=== PATIENT | female | born 1960 | race African-American/Black ===

== ENCOUNTER 2016-05-10 14:16 | Inpatient (IN) | payer OTHER ==
[2016-05-10] VITALS (8 sets, daily range): BP systolic 122–211; BP diastolic 79–130; PULSE 108–126; RESP 16–21; TEMP 98.8–100; O2SAT 96–100
[~2016-05-10] VITALS: Ht 172.7 cm; Wt 64.8 kg
[~2016-05-10 14:16] MED LIST: BP MEDICATION; CLON1TAB PO; LORTA5 PO; POTA1TAB PO
--- NOTE | 2016-05-10 14:42 | PD ---
HPI Chief Complaint: Altered Mental Status Time Seen by Provider: 14:31 Travel History International Travel<30 days: No Contact w/Intl Traveler<30days: No Traveled to known affect area: No History of Present Illness HPI 55-year-old female with past medical history of hepatitis and alcohol abuse presents to the emergency department with complaint of altered mental status. Patient's neighbor checks on her once in a while and found her to be confused today with dark stools all over her house. Patient denies any complaints and does not know why she is here. She is awake, alert and oriented 2. Patient admits to daily alcohol use and last use was yesterday. She has no acute signs of trauma, has multiple old ecchymosis and looks disheveled. PFSH Past Medical History Cerebrovascular Accident: No Hepatitis: Yes (HEP C) Hypertension: Yes Myocardial Infarction: No Seizures: No Ulcer: No ?: Unknown Menopausal: Yes Past Surgical History Abdominal Surgery: Yes Social History Alcohol Use: Yes (3 BEERS FEW TIMES A WEEK) Tobacco Use: Yes (1/2 PPD) Substance Use: Yes (MARIJUANA) Allergies-Medications (Allergen,Severity, Reaction): Coded Allergies: Sulfa (Verified Allergy, Severe, 05/10/16) Reported Meds & Prescriptions Reported Meds & Active Scripts Active Hydrocodone/Acetaminophen 5 mg/325 mg 1 Tab Tab 1 Tab PO Q6H PRN Reported [Bp Medication] UNKNOWN ANTIHYPERTENSIVE Clonazepam 1 Mg Tab 1 Mg PO BID K-Dur (Potassium Chloride) 10 Meq Tabcr 0 PO DAILY UNKNOWN DOSE Review of Systems ROS negative x 10: except as stated in HPI Physical Exam Narrative GENERAL: 55yo disheveled female, malodorous. SKIN: Warm and dry. HEAD: Atraumatic. Normocephalic. EYES: Pupils equal and round. Positive scleral icterus. No injection or drainage. NECK: Trachea midline. No JVD. CARDIOVASCULAR: Regular rate and rhythm. No murmur appreciated. Old large ecchymoses on right anterior chest. RESPIRATORY: No accessory muscle use. Clear to auscultation. Breath sounds equal bilaterally. GASTROINTESTINAL: Abdomen soft, non-tender, nondistended. MUSCULOSKELETAL: No obvious deformities. No clubbing. No cyanosis. No edema. NEURO: CNII-XII grossly intact. RUE: 3/5 muscle strength. RLE: 1/5 muscle strength. LUE: 4/5, LLE: 4/5. Data Data Last Documented VS Vital Signs Date Time Temp Pulse Resp B/P Pulse Ox O2 Delivery O2 Flow Rate FiO2 05/10/16 15:57 120 16 157/90 97 Room Air 05/10/16 14:27 2 05/10/16 14:20 100.0 Orders Electrocardiogram (05/10/16 14:31) Alcohol (Ethanol) (05/10/16 14:31) Ammonia (05/10/16 14:31) Complete Blood Count With Diff (05/10/16 14:31) Comprehensive Metabolic Panel (05/10/16 14:31) Creatine Kinase (Cpk) (05/10/16 14:31) Drug Screen, Random Urine (05/10/16 14:31) Salicylates (Aspirin) (05/10/16 14:31) Troponin I (05/10/16 14:31) Tylenol (Acetaminophen) (05/10/16 14:31) Thyroid Stimulating Hormone (05/10/16 14:31) Lactic Acid Sepsis Protocol (05/10/16 14:31) Arterial Blood Gas (Abg) (05/10/16 14:31) Blood Culture (05/10/16 14:31) Chest, Single Ap (05/10/16 14:31) Ct Brain W/O Iv Contrast(Rout) (05/10/16 14:31) Blood Glucose (05/10/16 14:31) Ecg Monitoring (05/10/16 14:31) Iv Access Insert/Monitor (05/10/16 14:31) Oximetry (05/10/16 14:31) Sodium Chloride 0.9% Flush (Ns Flush) (05/10/16 14:45) Urinalysis - C+S If Indicated (05/10/16 14:31) Ed Urine Pregnancytest Poc (05/10/16 14:31) Prothrombin Time / Inr (Pt) (05/10/16 15:27) Portable Eeg (05/10/16 ) Sodium Chlor 0.9% 1000 Ml Inj (Ns 1000 M (05/10/16 16:00) Sodium Chlor 0.9% 1000 Ml Inj (Ns 1000 M (05/10/16 16:00) CKMB (05/10/16 15:00) CKMB% (05/10/16 15:00) Urine Culture (05/10/16 15:30) Admit Order (Ed Use Only) (05/10/16 16:11) Labs Laboratory Tests Test 05/10/16 05/10/16 05/10/16 14:54 15:00 15:30 Blood Gas Puncture Site RT RADIAL Blood Gas Patient Temperature 98.6 Blood Gas HCO3 18 mmol/L Blood Gas Base Excess -4.2 mmol/L Blood Gas Oxygen Saturation 93 % Arterial Blood pH 7.56 Arterial Blood Partial 20 mmHg Pressure CO2 Arterial Blood Partial 88 mmHG Pressure O2 Arterial Blood Oxygen Content 17.6 Vol % Arterial Blood 1.8 % Carboxyhemoglobin Arterial Blood Methemoglobin 1.7 % Blood Gas Hemoglobin 13.4 G/DL Oxygen Delivery Device NASAL CANNULA Blood Gas Liter Flow 2 L/M Sodium Level 134 MEQ/L Potassium Level 4.2 MEQ/L Chloride Level 100 MEQ/L Carbon Dioxide Level 18.4 MEQ/L Anion Gap 16 MEQ/L Blood Urea Nitrogen 32 MG/DL Creatinine 1.27 MG/DL Estimat Glomerular Filtration 53 ML/MIN Rate Random Glucose 112 MG/DL Lactic Acid Level 4.3 mmol/L Calcium Level 8.9 MG/DL Phosphorus Level 2.9 MG/DL Total Bilirubin 1.6 MG/DL Aspartate Amino Transf 116 U/L (AST/SGOT) Alanine Aminotransferase 64 U/L (ALT/SGPT) Alkaline Phosphatase 61 U/L Ammonia 28 MCMOL/L Total Creatine Kinase 471 U/L Creatine Kinase MB 0.9 NG/ML Creatine Kinase MB % 0.2 % Troponin I 0.12 NG/ML Total Protein 8.9 GM/DL Albumin 3.1 GM/DL Thyroid Stimulating Hormone 1.010 uIU/ML 3rd Gen Salicylates Level LESS THAN 1.7 MG/DL Acetaminophen Level LESS THAN 2.0 MCG/ML Ethyl Alcohol Level 21 MG/DL White Blood Count 13.1 TH/MM3 Red Blood Count 3.98 MIL/MM3 Hemoglobin 12.8 GM/DL Hematocrit 39.4 % Mean Corpuscular Volume 99.0 FL Mean Corpuscular Hemoglobin 32.2 PG Mean Corpuscular Hemoglobin 32.5 % Concent Red Cell Distribution Width 13.1 % Platelet Count 79 TH/MM3 Mean Platelet Volume 10.2 FL Neutrophils (%) (Auto) 84.5 % Lymphocytes (%) (Auto) 3.9 % Monocytes (%) (Auto) 11.4 % Eosinophils (%) (Auto) 0.0 % Basophils (%) (Auto) 0.2 % Neutrophils # (Auto) 11.1 TH/MM3 Lymphocytes # (Auto) 0.5 TH/MM3 Monocytes # (Auto) 1.5 TH/MM3 Eosinophils # (Auto) 0.0 TH/MM3 Basophils # (Auto) 0.0 TH/MM3 CBC Comment AUTO DIFF Differential Comment AUTO DIFF CONFIRMED Platelet Estimate LOW Platelet Morphology Comment ENLARGED Red Cell Morphology Comment NORMAL Prothrombin Time 10.5 SEC Prothromb Time International 1.0 RATIO Ratio Urine Opiates Screen NEG Urine Barbiturates Screen NEG Urine Amphetamines Screen NEG Urine Benzodiazepines Screen NEG Urine Cocaine Screen POS Urine Cannabinoids Screen NEG Urine Color YELLOW Urine Turbidity HAZY Urine pH 6.0 Urine Specific [place] 1.019 Urine Protein 100 mg/dL Urine Glucose (UA) NEG mg/dL Urine Ketones 10 mg/dL Urine Occult Blood MOD Urine Nitrite POS Urine Bilirubin NEG Urine Urobilinogen LESS THAN 2.0 MG/DL Urine Leukocyte Esterase MOD Urine RBC 6 /hpf Urine WBC 42 /hpf Urine WBC Clumps OCC Urine Squamous Epithelial <1 /hpf Cells Urine Bacteria MANY /hpf Urine Mucus FEW /lpf Microscopic Urinalysis Comment CATH-CULTURE IND MDM Medical Decision Making Medical Screen Exam Complete: Yes Emergency Medical Condition: Yes Interpretation(s) CT brain: 2.3cm left thalamic hemorrhage CXR negative Labs elevated leukocytosis, elevated lactic acid. Normal ammonia level. ABG: respiratory alkalosis. UA positive for nitrite and leukocyte Differential Diagnosis AMS: Hepatic encephalopathy vs. ICH vs. GI bleed vs. infectious cause vs. electrolyte abnormalities vs. overdose. Narrative Course 55yo disheveled female with hepatitis here with altered mental status. Will check labs, CXR, CT brain, UA and reevaluate. CT brain was performed and showed 2.3cm thalamic hypertensive type hemorrhage. ICU and neurosurgery consulted. Pt accepted to ICU for ICH. Pt reevaluated at bedside, currently maintaining airway and does not need to be emergently intubated. Continue neurochecks Q1Hr, blood pressure control. Critical Care Narrative Aggregate critical care time was 35 minutes. Time to perform other separately billable procedures was not included in the critical care time. My time did not include minutes spent treating any other patients simultaneously or on activities that did not directly contribute to the patient's treatment. The services I provided were to treat and/or prevent clinically significant deterioration that could result in: cardiovascular compromise or . I provided critical care services requiring my management, as noted below: Chart data review, documentation time, medication orders and management, vital sign assessments/reviewing monitor data, ordering and reviewing lab tests, ordering and interpreting/reviewing x-rays and diagnostic studies, care of the patient and discussion of the patient with the admitting physicians. Admitting Information Admitting Physician Requests: Admit Diagnosis: Intracranial bleed Juanita Leong DO May 10, 2016 14:42
[2016-05-10] MEDS ORDERED: SODIUM CHLORIDE 0.9% FLUSH 5 ML FLUSH IVF PRN ×3 (14:45→19:00)
[2016-05-10 15:02] LABS: BLOOD GAS BASE EXCESS -4.2 mmol/L (-2-2); BLOOD GAS CARBOXYHEMOGLOBIN 1.8 % (0-4); BLOOD GAS HCO3 18 mmol/L (22-26); BLOOD GAS METHEMOGLOBIN 1.7 % (0-2); BLOOD GAS O2 HGB SATURATION 93 % (90-100); BLOOD GAS OXYGEN CONTENT 17.6 Vol % (12.0-20.0); BLOOD GAS PCO2 20 mmHg (38-42); BLOOD GAS PO2 88 mmHG (61-120); BLOOD GAS TOTAL HGB 13.4 G/DL (12.0-16.0); CRITICAL VALUE YES; DRAW SITE RT RADIAL; LITER FLOW 2 L/M; NUMBER OF ARTERIAL PUNCTURES 1; OXYGEN DEVICE NASAL CANNULA; STAT YES; TEMP CORR TO 98.6; ULNAR PULSE PRESENT
--- NOTE | 2016-05-10 15:09 | RADRPT ---
EXAM DATE/TIME: 05/10/2016 14:39 [facility] COMPARISON: No previous studies available for comparison. INDICATIONS : Short of breath. MEDICAL HISTORY : None. SURGICAL HISTORY : None. ENCOUNTER: Initial ACUITY: 1 day PAIN SCORE: 0/10 LOCATION: Bilateral chest FINDINGS: A single view of the chest demonstrates the lungs to be symmetrically aerated without evidence of mas s, infiltrate or effusion. The cardiomediastinal contours are unremarkable. Osseous structures are intact. CONCLUSION: No acute disease. Pedro Escobar MD on May 10, 2016 at 15:06 Board Certified Radiologist. This report was verified electronically.
[2016-05-10 15:13] LABS: AUTOMATED NEUTROPHIL # 11.1 TH/MM3 (1.8-7.7); BASOPHIL % 0.2 % (0.0-2.0); HEMATOCRIT 39.4 % (35.0-46.0); LYMPH % 3.9 % (9.0-44.0); LYMPHOCYTE # 0.5 TH/MM3 (1.0-4.8); MEAN CORPUSCULAR HEMOGLOBIN 32.2 PG (27.0-34.0); MEAN CORPUSCULAR HGB CONC 32.5 % (32.0-36.0); MONO % 11.4 % (0.0-8.0); NEUT % 84.5 % (16.0-70.0); PLATELET COUNT 79 TH/MM3 (150-450); RED BLOOD COUNT 3.98 MIL/MM3 (4.00-5.30); RED CELL DISTRIBUTION WIDTH 13.1 % (11.6-17.2); WHITE BLOOD COUNT 13.1 TH/MM3 (4.0-11.0)
[2016-05-10 15:15] LABS: HEMO FLAGS AUTO DIFF
--- NOTE | 2016-05-10 15:27 | RADRPT ---
EXAM DATE/TIME: 05/10/2016 15:07 [facility] COMPARISON: No previous studies available for comparison. INDICATIONS : Altered mental status. Found on the floor. RADIATION DOSE: 56.35 CTDIvol (mGy) MEDICAL HISTORY : Hypertension. Hepatitis C. SURGICAL HISTORY : None. ENCOUNTER: Initial ACUITY: 1 day PAIN SCALE: 0/10 LOCATION: cranial TECHNIQUE: Multiple contiguous axial images were obtained of the head. Using automated exposure control and adj ustment of the mA and/or kV according to patient size, radiation dose was kept as low as reasonably a chievable to obtain optimal diagnostic quality images. FINDINGS: CEREBRUM: Focal hypertensive type hemorrhage in the left thalamus measuring approximately 2.2 cm in diameter wi th approximately 4 mm of left to right subfalcine shift. There is some periventricular diminished att enuation characteristic of small vessel ischemic demyelination. POSTERIOR FOSSA: The cerebellum and brainstem are intact. The 4th ventricle is midline. The cerebellopontine angle i s unremarkable. EXTRACRANIAL: The visualized portion of the orbits is intact. SKULL: The calvaria is intact. No evidence of skull fracture. CONCLUSION: 1. 2.3 cm left thalamic hypertensive type hemorrhage with approximately 4 mm of [id number] subfalc ine shift. 2. Mild periventricular small vessel ischemic demyelination. 3. Results were called to Dr. Barboza at the time of this dictation. Nicholas Dove MD on May 10, 2016 at 15:21 Board Certified Radiologist. This report was verified electronically.
[2016-05-10 15:37] LABS: PLATELET ESTIMATE SMEAR LOW (NORMAL); PLATELET MORPHOLOGY ENLARGED (NORMAL); SCAN/DIFF AUTO DIFF CONFIRMED
[2016-05-10 15:46] LABS: ANION GAP 16 MEQ/L (5-15); AST (GOT) 116 U/L (15-37); BICARBONATE 18.4 MEQ/L (21.0-32.0); BLOOD UREA NITROGEN 32 MG/DL (7-18); CHLORIDE 100 MEQ/L (98-107); GLOMERULAR FILTRATION RATE 53 ML/MIN (>89); POTASSIUM 4.2 MEQ/L (3.5-5.1); SODIUM (NA) 134 MEQ/L (136-145)
[2016-05-10 16:00] LABS: ALKALINE PHOSPHATASE 61 U/L (45-117); ALT (GPT) 64 U/L (10-53); CREATINE KINASE 471 U/L (26-192); TOTAL BILIRUBIN ADULT 1.6 MG/DL (0.2-1.0)
[2016-05-10] MEDS ORDERED: SODIUM CHLOR 0.9% 1000 ML INJ 1,000 ML IV ONE ×2 (16:00)
[2016-05-10 16:01] LABS: ACETAMINOPHEN LESS THAN 2.0 MCG/ML (10.0-30.0)
[2016-05-10 16:01] LABS: PROTHROMBIN TIME - PATIENT 10.5 SEC (9.8-11.4)
[2016-05-10 16:02] LABS: BACTERIA, URINE MANY /hpf; BLOOD, URINE MOD (NEG); COMMENT (UR) CATH-CULTURE IND; CULTURE IF INDICATED CATH CULTURE IND; GLUCOSE,URINE NEG (NEG); KETONE, URINE 10 mg/dL (NEG); MUCUS URINE FEW /lpf (OCC); NITRITE,URINE POS (NEG); SQUAMOUS EPITHELIAL CELL URINE <1 /hpf (0-5); URINE COLOR YELLOW (YELLW/STRAW)
[2016-05-10 16:04] LABS: AMPHETAMINE, URINE NEG (NEG); BARBITURATES, URINE NEG (NEG); COCAINE, URINE POS (NEG)
[2016-05-10 16:13] LABS: CKMB 0.9 NG/ML (0.5-3.6)
[2016-05-10 17:06] LABS: LACTIC ACID GHOST NOT REPORTABLE
--- NOTE | 2016-05-10 17:14 | PD.CONS ---
HPI Service Ns Consult Requested By Dr Leong Reason for Consult Intracranial bleed Primary Care Physician Unknown History of Present Illness This is a 55-year-old female with past medical history of hepatitis and alcohol abuse presents to the emergency department with complaint of altered mental status. Patient's neighbor checks on her once in a while and found her to be confused today with dark stools all over her house. Patient does not know why she is here. She is confused, not oriented. She admits to daily alcohol use and last use was yesterday. She has no acute signs of trauma, however has multiple old ecchymosis. She became hypertensive and was started on a cardene drip. CT showed a basal ganglia hemorrhage. Neurosurgical consultation was requested Review of Systems Unable to be obtained due to altered mental status ROS Limitations: Clinical Condition, Altered Mental Status Past Family Social History Allergies: Coded Allergies: Sulfa (Verified Allergy, Severe, 05/10/16) Past Medical History Hepatitis C, hypertension Past Surgical History Abdominal surgery Reported Medications Clonazepam 1 Mg Tab 1 Mg PO BID K-Dur (Potassium Chloride) 10 Meq Tabcr 0 PO DAILY Active Ordered Medications Current Medications Medications (Trade) Dose Ordered Sig/Nicole Route Start Time Stop Time Status Last Admin (NS 1000 ml Inj) 1,000 ml @ 75 mls/hr [id number] IV 05/10/16 18:00 05/10/16 18:08 (NS Flush) 2 ml UNSCH PRN IVF 05/10/16 17:15 (NS Flush) 2 ml BID IVF 05/10/16 21:00 (Protonix Inj) 40 mg DAILY IV 05/10/16 18:00 05/10/16 17:55 Miscellaneous Information 1 [id number] XX 05/10/16 17:15 (Chlorhexidine 2% Cloth) 3 pack Taper DAILY@04 TOP 05/11/16 04:00 05/07/17 03:59 Chlorhexidine Gluconate 3 pack 3 pack UNSCH PRN TOP 05/10/16 17:15 (Cardene Inj/NS 250 ml Inj) 260 ml @ 0 mls/hr TITRATE IV 7/18/16 17:15 05/10/16 17:27 Family History Unknown and unobtainable Social History Positive EtOH daily, positive smoking a half a pack per day, positive marijuana use Physical Exam Vital Signs Vital Signs Date Time Temp Pulse Resp B/P Pulse Ox O2 Delivery O2 Flow Rate FiO2 05/10/16 16:46 108 16 211/130 99 Nasal Cannula 2 05/10/16 15:57 120 16 157/90 97 Room Air 05/10/16 14:27 119 18 138/95 100 Nasal Cannula 2 05/10/16 14:20 100.0 118 18 138/95 100 Physical Exam The patient is alert, confused, oriented to self. Cranial nerve examination demonstrates the pupils to be equal, round, and reactive to light. Extra-ocular movements are intact with normal convergence. Facial motor function appears normal and symmetrical. Face sensation, hearing, visual mena, and olfaction can not be assessed properly due to the patients condition. The patient has an intact corneal reflex and a gag reflex. Sternocleidomastoid and trapezius have normal and symmetrical strength. Other cranial nerves are intact. Neck is soft and supple. Cervical spine has a normal range of motion of the cervical spine without pain. There is no tenderness to palpation to the spinous processes or paraspinal muscles. Muscle testing reveals normal bulk and tone overall without rigidity, spasticity , fasciculations, or atrophy. Muscle strength is 5/5 in all muscle groups of both upper and lower extremities. Deep tendon reflexes are 1+ and symmetrical in the biceps, triceps, and brachioradialis, bilaterally, in the upper extremities. In the lower extremities , the patellar and Achilles are 1+, bilaterally. There is a bilateral plantar flexion response. Hoffmanns sign is negative. There is no clonus or other abnormal reflexes noted. Cerebellar examination is limited due to the patient condition, but no obvious deficits are noted. Laboratory Laboratory Tests Test 05/10/16 05/10/16 05/10/16 14:54 15:00 15:30 Blood Gas Puncture Site RT RADIAL Blood Gas Patient Temperature 98.6 Blood Gas HCO3 18 Blood Gas Base Excess -4.2 Blood Gas Oxygen Saturation 93 Arterial Blood pH 7.56 Arterial Blood Partial 20 Pressure CO2 Arterial Blood Partial 88 Pressure O2 Arterial Blood Oxygen Content 17.6 Arterial Blood 1.8 Carboxyhemoglobin Arterial Blood Methemoglobin 1.7 Blood Gas Hemoglobin 13.4 Oxygen Delivery Device NASAL CANNULA Blood Gas Liter Flow 2 White Blood Count 13.1 Red Blood Count 3.98 Hemoglobin 12.8 Hematocrit 39.4 Mean Corpuscular Volume 99.0 Mean Corpuscular Hemoglobin 32.2 Mean Corpuscular Hemoglobin 32.5 Concent Red Cell Distribution Width 13.1 Platelet Count 79 Mean Platelet Volume 10.2 Neutrophils (%) (Auto) 84.5 Lymphocytes (%) (Auto) 3.9 Monocytes (%) (Auto) 11.4 Eosinophils (%) (Auto) 0.0 Basophils (%) (Auto) 0.2 Neutrophils # (Auto) 11.1 Lymphocytes # (Auto) 0.5 Monocytes # (Auto) 1.5 Eosinophils # (Auto) 0.0 Basophils # (Auto) 0.0 CBC Comment AUTO DIFF Differential Comment AUTO DIFF CONFIRMED Platelet Estimate LOW Platelet Morphology Comment ENLARGED Red Cell Morphology Comment NORMAL Sodium Level 134 Potassium Level 4.2 Chloride Level 100 Carbon Dioxide Level 18.4 Anion Gap 16 Blood Urea Nitrogen 32 Creatinine 1.27 Estimat Glomerular Filtration 53 Rate Random Glucose 112 Lactic Acid Level 4.3 Calcium Level 8.9 Total Bilirubin 1.6 Aspartate Amino Transf 116 (AST/SGOT) Alanine Aminotransferase 64 (ALT/SGPT) Alkaline Phosphatase 61 Ammonia 28 Total Creatine Kinase 471 Creatine Kinase MB 0.9 Creatine Kinase MB % 0.2 Troponin I 0.12 Total Protein 8.9 Albumin 3.1 Thyroid Stimulating Hormone 1.010 3rd Gen Salicylates Level LESS THAN 1.7 Acetaminophen Level LESS THAN 2.0 Ethyl Alcohol Level 21 Prothrombin Time 10.5 Prothromb Time International 1.0 Ratio Urine Color YELLOW Urine Turbidity HAZY Urine pH 6.0 Urine Specific [place] 1.019 Urine Protein 100 Urine Glucose (UA) NEG Urine Ketones 10 Urine Occult Blood MOD Urine Nitrite POS Urine Bilirubin NEG Urine Urobilinogen LESS THAN 2.0 Urine Leukocyte Esterase MOD Urine RBC 6 Urine WBC 42 Urine WBC Clumps OCC Urine Squamous Epithelial <1 Cells Urine Bacteria MANY Urine Mucus FEW Microscopic Urinalysis Comment CATH-CULTURE IND Urine Opiates Screen NEG Urine Barbiturates Screen NEG Urine Amphetamines Screen NEG Urine Benzodiazepines Screen NEG Urine Cocaine Screen POS Urine Cannabinoids Screen NEG Date/Time Procedure Status Source Growth 05/10/16 15:30 Urine Culture Received Urine Catheterized Urine Pending 05/10/16 15:00 Aerobic Blood Culture Received Blood Peripheral Pending 05/10/16 15:00 Anaerobic Blood Culture Received Blood Peripheral Pending Result Diagram: 05/10/16 1500 05/10/16 1500 Imaging Last Impressions Head CT 05/10/16 1431 Signed Impressions: Service Date/Time: Tuesday, May 10, 2016 15:07 - CONCLUSION: 1. 2.3 cm left thalamic hypertensive type hemorrhage with approximately 4 mm of [id number] subfalcine shift. 2. Mild periventricular small vessel ischemic demyelination. 3. Results were called to Dr. Barboza at the time of this dictation. Nicholas Dove MD Chest X-Ray 05/10/16 1431 Signed Impressions: Service Date/Time: Tuesday, May 10, 2016 14:39 - CONCLUSION: No acute disease. Pedro Escobar MD Attending Statement Neuro. I have reviewed her clinical and radiological findings. Start neuro checks in a serial fashion. I recommend MRI of the brain and an MRA. There is no clinical or radiological evidence of herniation. Recommend non-operative treatment with serial neuro check and possibly Mannitols. Recommend to repeat the CT of the brain in 24 hours to determining changes in the hemorrhage A placement of a ventriculostomy catheter ICP monitor is not indicated at this time EEG in Am to rule out seizure Respiratory. Aggressive pulmonary toilette, nasotracheal suction, and breathing treatments with nebulizers. Hypertension. Started on cardene drip Alcohol abuse. Thiamine, Folic acid and multivitamin. Benzodiazepines as needed PT and OT evaluation Nutrition. NPO Renal. monitor closely urine output, BUN and creatinine Endocrine. Monitor serial Acu checks and SSI as needed in detail ID monitor for signs of infection Protonix for stress ulcer prophylaxis Ponce gerae and SCD's for DVT prophylaxis, No pharmacological prophylaxis due to ICH Noman Venegas MD May 10, 2016 17:14
[2016-05-10] MEDS ORDERED: RESP: ALBUTEROL 2.5 MG/IPRATROPIUM 0.5 MG NEB (PRN) INH (17:15)
[2016-05-10] MEDS ORDERED: CHLORHEXIDINE GLUCONATE 2 % 1 PACK (2 CLOTHS) TOP PRN ×2 (17:15→19:00)
[2016-05-10] MEDS ORDERED: MISCELLANEOUS NURSING INFORMATION XX SCH ×2 (17:15→19:00)
[2016-05-10] MEDS: niCARdipine INJ 25 MG in SODIUM CHLOR 0.9% 250 ML INJ 250 ML IV SCH ×2 (17:27→23:01)
[2016-05-10] MEDS: PANTOPRAZOLE SODIUM 40 MG VIAL IV SCH (17:55)
[2016-05-10] MEDS ORDERED: SODIUM CHLOR 0.9% 1000 ML INJ 1,000 ML IV SCH ×2 (18:00→19:00)
[2016-05-10] MEDS ORDERED: MAGNESIUM SULFATE INJ 4 GM in SODIUM CHLORIDE 0.9% INJ 92 ML IV PRN (19:00)
[2016-05-10] MEDS ORDERED: MAGNESIUM SULFATE INJ 2 GM in SODIUM CHLORIDE 0.9% INJ 96 ML IV PRN (19:00)
[2016-05-10] MEDS ORDERED: MAGNESIUM OXIDE 400 MG TAB PO PRN (19:00)
[2016-05-10] MEDS ORDERED: POTASSIUM CHLOR 20 MEQ PREMIX 100 ML IV PRN (19:00)
[2016-05-10] MEDS ORDERED: POTASSIUM PHOSPHATE MONOBASIC 500 MG TAB PO/TUBE PRN (19:00)
[2016-05-10] MEDS ORDERED: POTASSIUM PHOSPHATE MONOBASIC 500 MG TAB PO PRN (19:00)
[2016-05-10] MEDS ORDERED: SODIUM PHOSPHATE INJ 30 MMOL in SODIUM CHLOR 0.9% 250 ML INJ 240 ML IV PRN (19:00)
[2016-05-10] MEDS ORDERED: ONDANSETRON HCL 4 MG/2 ML VIAL IV PRN (19:00)
[2016-05-10] MEDS ORDERED: POTASSIUM CL 40 MEQ/30 ML LIQ UDC PO/TUBE PRN ×2 (19:00)
[2016-05-10] MEDS ORDERED: POTASSIUM CHLOR 40 MEQ PREMIX 100 ML IV PRN ×2 (19:00)
[2016-05-10] MEDS ORDERED: POTASSIUM PHOSPHATE INJ 30 MMOL in SODIUM CHLOR 0.9% 250 ML INJ 250 ML IV PRN (19:00)
--- NOTE | 2016-05-10 19:20 | HHI.HP ---
HPI Service Critical Care Medicine Primary Care Physician Unknown Admission Diagnosis Intracranial bleed Diagnosis: Chief Complaint: Altered mental status Travel History International Travel<30 Days: No Contact w/Intl Traveler <30 Da: No Traveled to Known Affected Are: No History of Present Illness Patient is a 55-year-old female with a history of alcohol abuse as well as hepatitis the presents the emergency department with altered mental status. Patient's neighbor went to her dress today and found her confused with feces all over her house. The patient was unaware of why she was in the emergency department. She did not have any complaints. She was only awake and alert 2 in the emergency department. She admitted to daily alcohol use and had no evidence of any trauma. In emergency department she was found to be hypertensive and started on Cardene CT scan of the brain showed evidence of a basal ganglia hemorrhage. Currently being admitted to the intensive care unit for further care and monitoring. Review of Systems ROS Limitations: Altered Mental Status ROS Unable to be obtained due to altered mental status as per history of present illness Past Family Social History Allergies: Coded Allergies: Sulfa (Verified Allergy, Severe, 05/10/16) Past Medical History Hepatitis C, hypertension Past Surgical History Abdominal surgery of some type Reported Medications Reported Meds & Active Scripts Active Hydrocodone/Acetaminophen 5 mg/325 mg 1 Tab Tab 1 Tab PO Q6H PRN Reported [Bp Medication] UNKNOWN ANTIHYPERTENSIVE Clonazepam 1 Mg Tab 1 Mg PO BID K-Dur (Potassium Chloride) 10 Meq Tabcr 0 PO DAILY UNKNOWN DOSE Active Ordered Medications Current Medications Medications (Trade) Dose Ordered Sig/Nicole Route Start Time Stop Time Status Last Admin (NS 1000 ml Inj) 1,000 ml @ 75 mls/hr [id number] IV 05/10/16 18:00 05/10/16 18:08 (NS Flush) 2 ml UNSCH PRN IVF 05/10/16 17:15 (NS Flush) 2 ml BID IVF 05/10/16 21:00 (Protonix Inj) 40 mg DAILY IV 05/10/16 18:00 05/10/16 17:55 Miscellaneous Information 1 [id number] XX 05/10/16 17:15 (Chlorhexidine 2% Cloth) 3 pack Taper DAILY@04 TOP 05/11/16 04:00 05/07/17 03:59 Chlorhexidine Gluconate 3 pack 3 pack UNSCH PRN TOP 05/10/16 17:15 (Cardene Inj/NS 250 ml Inj) 260 ml @ 0 mls/hr TITRATE IV 05/10/16 17:15 05/10/16 17:27 Family History Unknown and unobtainable Social History Positive EtOH daily, positive smoking a half a pack per day, positive marijuana use Physical Exam Vital Signs Vital Signs Date Time Temp Pulse Resp B/P Pulse Ox O2 Delivery O2 Flow Rate FiO2 05/10/16 18:01 126 18 135/88 99 Nasal Cannula 2 05/10/16 16:46 108 16 211/130 99 Nasal Cannula 2 05/10/16 15:57 120 16 157/90 97 Room Air 05/10/16 14:27 119 18 138/95 100 Nasal Cannula 2 05/10/16 14:20 100.0 118 18 138/95 100 Physical Exam Gen.: Patient is confused, disheveled Neuro: Awake and alert 2, pupils are equal, extraocular muscles are intact, cranial nerves are grossly intact, neck is supple, no focal motor deficits are noted, HEENT: Neck supple, no JVD, trachea midline CVS: Regular rate and rhythm, normal S1-S2 without rub murmur gallop Respiratory: Clear to auscultation bilaterally no wheezes rales or rhonchi GI: Soft, nontender, nondistended, no organomegaly, no rebound tenderness : We'll monitor urine output Extremities: Positive multiple old ecchymotic areas, positive pulses, capillary refills intact, no clubbing Skin: Positive old ecchymosis, bruising to the anterior chest, no rashes are noted Nutrition: Nothing by mouth Infectious disease: Low-grade temperature 100 Laboratory Laboratory Tests Test 05/10/16 05/10/16 05/10/16 05/10/16 14:54 15:00 15:30 17:30 Blood Gas Puncture Site RT RADIAL Blood Gas Patient Temperature 98.6 Blood Gas HCO3 18 Blood Gas Base Excess -4.2 Blood Gas Oxygen Saturation 93 Arterial Blood pH 7.56 Arterial Blood Partial 20 Pressure CO2 Arterial Blood Partial 88 Pressure O2 Arterial Blood Oxygen Content 17.6 Arterial Blood 1.8 Carboxyhemoglobin Arterial Blood Methemoglobin 1.7 Blood Gas Hemoglobin 13.4 Oxygen Delivery Device NASAL CANNULA Blood Gas Liter Flow 2 White Blood Count 13.1 Red Blood Count 3.98 Hemoglobin 12.8 Hematocrit 39.4 Mean Corpuscular Volume 99.0 Mean Corpuscular Hemoglobin 32.2 Mean Corpuscular Hemoglobin 32.5 Concent Red Cell Distribution Width 13.1 Platelet Count 79 Mean Platelet Volume 10.2 Neutrophils (%) (Auto) 84.5 Lymphocytes (%) (Auto) 3.9 Monocytes (%) (Auto) 11.4 Eosinophils (%) (Auto) 0.0 Basophils (%) (Auto) 0.2 Neutrophils # (Auto) 11.1 Lymphocytes # (Auto) 0.5 Monocytes # (Auto) 1.5 Eosinophils # (Auto) 0.0 Basophils # (Auto) 0.0 CBC Comment AUTO DIFF Differential Comment AUTO DIFF CONFIRMED Platelet Estimate LOW Platelet Morphology Comment ENLARGED Red Cell Morphology Comment NORMAL Sodium Level 134 Potassium Level 4.2 Chloride Level 100 Carbon Dioxide Level 18.4 Anion Gap 16 Blood Urea Nitrogen 32 Creatinine 1.27 Estimat Glomerular Filtration 53 Rate Random Glucose 112 Lactic Acid Level 4.3 Calcium Level 8.9 Total Bilirubin 1.6 Aspartate Amino Transf 116 (AST/SGOT) Alanine Aminotransferase 64 (ALT/SGPT) Alkaline Phosphatase 61 Ammonia 28 Total Creatine Kinase 471 Creatine Kinase MB 0.9 Creatine Kinase MB % 0.2 Troponin I 0.12 Total Protein 8.9 Albumin 3.1 Thyroid Stimulating Hormone 1.010 3rd Gen Salicylates Level LESS THAN 1.7 Acetaminophen Level LESS THAN 2.0 Ethyl Alcohol Level 21 Prothrombin Time 10.5 Prothromb Time International 1.0 Ratio Urine Color YELLOW Urine Turbidity HAZY Urine pH 6.0 Urine Specific [place] 1.019 Urine Protein 100 Urine Glucose (UA) NEG Urine Ketones 10 Urine Occult Blood MOD Urine Nitrite POS Urine Bilirubin NEG Urine Urobilinogen LESS THAN 2.0 Urine Leukocyte Esterase MOD Urine RBC 6 Urine WBC 42 Urine WBC Clumps OCC Urine Squamous Epithelial <1 Cells Urine Bacteria MANY Urine Mucus FEW Microscopic Urinalysis Comment CATH-CULTURE IND Urine Opiates Screen NEG Urine Barbiturates Screen NEG Urine Amphetamines Screen NEG Urine Benzodiazepines Screen NEG Urine Cocaine Screen POS Urine Cannabinoids Screen NEG Blood Type A POSITIVE Date/Time Procedure Status Source Growth 05/10/16 15:30 Urine Culture Received Urine Catheterized Urine Pending 05/10/16 15:00 Aerobic Blood Culture Received Blood Peripheral Pending 05/10/16 15:00 Anaerobic Blood Culture Received Blood Peripheral Pending Result Diagram: 05/10/16 1500 05/10/16 1500 Imaging Last [address] 05/10/16 1431 Signed Impressions: Service Date/Time: Tuesday, May 10, 2016 15:07 - CONCLUSION: 1. 2.3 cm left thalamic hypertensive type hemorrhage with approximately 4 mm of [id number] subfalcine shift. 2. Mild periventricular small vessel ischemic demyelination. 3. Results were called to Dr. Barboza at the time of this dictation. Nicholas Dove MD Chest X-Ray 05/10/16 1431 Signed Impressions: Service Date/Time: Tuesday, May 10, 2016 14:39 - CONCLUSION: No acute disease. Pedro Escobar MD Course Patient is started on a Cardene infusion, antibiotics will be initiated, she is been pancultured, due to her low platelets she received a platelet transfusion, she is being transferred to the intensive care unit for further care monitoring Assessment and Plan Assessment and Plan Intracranial hemorrhage with basal ganglier bleed: Patient has a 4 mm left to right shift, serial neurologic exams will be performed, neurosurgery is following the patient there are no plans for operative intervention at this time Acidosis: Patient's base deficit is -4.2 we will continue volume resuscitation Malignant hypertension: Due to her intracranial hemorrhage she was started on a Cardene infusion and we'll monitor her blood pressure Leukocytosis: Patient is been pancultured antibiotics and been initiated Thrombocytopenia: Her platelets are 79, she has known liver disease, we will transfuse her platelets Hyponatremia: She is receiving normal saline Lactic acidosis: Her lactate is 4.3 we'll continue to monitor this Hepatitis UTI: Positive urinalysis urine cultures been sent antibiotics and been initiated Marijuana abuse EtOH abuse: We'll monitor for the patient developed DTs and multivitamin will be initiated area Patient is currently in critical condition with potential further clinical decompensation Total critical care time spent with the patient is 45 minutes Code Status Full code Discussed Condition With Bedside healthcare providers Gurmeet Riley MD May 10, 2016 19:20
[2016-05-10] MEDS: CHLORHEXIDINE GLUCONATE 2 % 1 PACK (2 CLOTHS) TOP SCH (20:59)
[2016-05-10] MEDS: SODIUM CHLORIDE 0.9% FLUSH 5 ML FLUSH IVF SCH (21:00)
[2016-05-10] MEDS ORDERED: LEVOFLOXACIN 500 MG PREMIX INJ 100 ML IV SCH (21:00)
[2016-05-10] MEDS: MULTIVITAMIN INJ 10 ML, FOLIC ACID INJ 1 MG in SODIUM CHLORID 0.9% 500 ML INJ 500 ML IV SCH (21:00)
[2016-05-10] MEDS ORDERED: SODIUM CHLORIDE 0.9% FLUSH 5 ML FLUSH IVF SCH (21:00)
[2016-05-10] MEDS ORDERED: RESP: ALBUTEROL 2.5 MG/IPRATROPIUM 0.5 MG NEB (SCH) INH (22:00)
[2016-05-10] MEDS: RESP: ALBUTEROL 2.5 MG/IPRATROPIUM 0.5 MG NEB (SCH) INH (22:43)
[2016-05-11] VITALS (14 sets, daily range): BP systolic 112–136; BP diastolic 69–84; PULSE 94–120; RESP 15–27; TEMP 98.4–98.8; O2SAT 95–100
[2016-05-11] MEDS ORDERED: CHLORHEXIDINE GLUCONATE 2 % 1 PACK (2 CLOTHS) TOP SCH (04:00)
[2016-05-11] MEDS: RESP: ALBUTEROL 2.5 MG/IPRATROPIUM 0.5 MG NEB (SCH) INH ×4 (04:04→22:00)
[2016-05-11] MEDS: MORPHINE SULFATE 4 MG/ML INJ IV PUSH PRN (04:24)
[2016-05-11 05:26] LABS: AUTOMATED NEUTROPHIL # 9.7 TH/MM3 (1.8-7.7); BASOPHIL % 0.1 % (0.0-2.0); HEMATOCRIT 36.6 % (35.0-46.0); HEMO FLAGS DIFF FINAL; LYMPH % 5.6 % (9.0-44.0); LYMPHOCYTE # 0.6 TH/MM3 (1.0-4.8); MEAN CELL VOLUME 97.7 FL (80.0-100.0); MEAN CORPUSCULAR HEMOGLOBIN 32.4 PG (27.0-34.0); MEAN CORPUSCULAR HGB CONC 33.2 % (32.0-36.0); MONO % 11.2 % (0.0-8.0); NEUT % 83.1 % (16.0-70.0); PLATELET COUNT 146 TH/MM3 (150-450); RED BLOOD COUNT 3.74 MIL/MM3 (4.00-5.30); WHITE BLOOD COUNT 11.7 TH/MM3 (4.0-11.0)
[2016-05-11 05:53] LABS: ALKALINE PHOSPHATASE 58 U/L (45-117); ALT (GPT) 68 U/L (10-53); ANION GAP 14 MEQ/L (5-15); AST (GOT) 113 U/L (15-37); BLOOD UREA NITROGEN 25 MG/DL (7-18); CHLORIDE 104 MEQ/L (98-107); GLOMERULAR FILTRATION RATE 82 ML/MIN (>89); MAGNESIUM 1.9 MG/DL (1.5-2.5); SODIUM (NA) 142 MEQ/L (136-145); TOTAL BILIRUBIN ADULT 1.9 MG/DL (0.2-1.0)
[2016-05-11 06:10] LABS: POTASSIUM 2.4 MEQ/L (3.5-5.1)
[2016-05-11] MEDS: POTASSIUM CHLOR 20 MEQ PREMIX 100 ML IV PRN ×2 (06:30→21:59)
--- NOTE | 2016-05-11 07:56 | HHI.CCPN ---
Subjective Remarks/Hospital Course Patient is a 55-year-old female with a history of alcohol abuse as well as hepatitis the presents the emergency department with altered mental status. Patient's neighbor went to her dress today and found her confused with feces all over her house. The patient was unaware of why she was in the emergency department. She did not have any complaints. She was only awake and alert 2 in the emergency department. She admitted to daily alcohol use and had no evidence of any trauma. In emergency department she was found to be hypertensive and started on Cardene CT scan of the brain showed evidence of a basal ganglia hemorrhage. Currently being admitted to the intensive care unit for further care and monitoring. SUBJECTIVE 05/11/16: Patient appears mildly anxious tachycardic. Blood pressure adequately controlled with Cardene infusion now on 2 mg per hour. Repeat CT head and MRI of the brain are pending at this time. Nonoperative management recommended by neuro surgery. Potassium noted to be 2.4, getting replaced Objective - Vital Signs Date Time Temp Pulse Resp B/P Pulse Ox O2 Delivery O2 Flow Rate FiO2 05/11/16 06:00 103 05/11/16 04:00 98.7 18 125/81 97 05/10/16 22:47 Nasal Cannula 2.00 Intake and Output 05/10/16 05/10/16 05/11/16 08:00 16:00 00:00 Intake Total 359 ml Output Total 950 ml Balance -591 ml Result Diagram: 05/11/16 0438 05/11/16 0438 Other Results Laboratory Tests Test 05/10/16 14:54 Blood Gas Puncture Site RT RADIAL Blood Gas Patient Temperature 98.6 Blood Gas HCO3 18 mmol/L (22-26) Blood Gas Base Excess -4.2 mmol/L (-2-2) Blood Gas Oxygen Saturation 93 % (90-100) Arterial Blood pH 7.56 (7.380-7.420) Arterial Blood Partial 20 mmHg (38-42) Pressure CO2 Arterial Blood Partial 88 mmHG Pressure O2 (61-120) Arterial Blood Oxygen Content 17.6 Vol % (12.0-20.0) Arterial Blood 1.8 % (0-4) Carboxyhemoglobin Arterial Blood Methemoglobin 1.7 % (0-2) Blood Gas Hemoglobin 13.4 G/DL (12.0-16.0) Oxygen Delivery Device NASAL CANNULA Blood Gas Liter Flow 2 L/M Imaging Last [address] 05/10/16 1431 Signed Impressions: Service Date/Time: Tuesday, May 10, 2016 15:07 - CONCLUSION: 1. 2.3 cm left thalamic hypertensive type hemorrhage with approximately 4 mm of [id number] subfalcine shift. 2. Mild periventricular small vessel ischemic demyelination. 3. Results were called to Dr. Barboza at the time of this dictation. Nicholas Dove MD Chest X-Ray 05/10/16 1431 Signed Impressions: Service Date/Time: Tuesday, May 10, 2016 14:39 - CONCLUSION: No acute disease. Pedro Escobar MD Objective Remarks Gen.: Patient is confused, disheveled HEENT: Neck supple, no JVD, trachea midline CVS: Tachycardic rate and rhythm, normal S1-S2 without rub murmur gallop Respiratory: Clear to auscultation bilaterally no wheezes rales or rhonchi GI: Soft, nontender, nondistended, no organomegaly, no rebound tenderness : Lala catheter in place Extremities: Positive multiple old ecchymotic areas, positive pulses, capillary refills intact, no clubbing Skin: Positive old ecchymosis, bruising to the anterior chest, left shoulder Neuro: Awake and alert 2, pupils are equal, extraocular muscles are intact, cranial nerves are grossly intact, neck is supple, Normal strength L upper and lower ext, RUE 4/5 and RLE 3/5 strength Urinary Catheter: Yes Assessment to: Continue A/P Assessment and Plan NEURO: Left basal ganglia bleed with 4mm MLS Right hemiparesis Alcohol and cocaine abuse dependence -Serial neurologic exams will be performed, neurosurgery is following the patient there are no plans for operative intervention at this time -Repeat CT of the head today, if increasing shift start mannitol -Target systolic blood pressure less than 140-150, keep Na >145, avoid hypoxia, hypercarbia -No indication for seizure prophylaxis -Watch for alcohol and drug withdrawal, supplement thiamine -Ativan when necessary for withdrawal and seizures CVS: Hypertensive emergency Lactic acidosis -Currently on Cardene infusion to keep systolic blood pressure less than 150 -Start scheduled Norvasc 10 mg daily after swallow eval -IV labetalol and hydralazine for blood pressure above 150, and wean off Cardene -2-D echo to evaluate LV function Resp: Tobacco abuse -DuoNeb every 6 hours and when necessary -Aggressive pulmonary toilet GI: Transaminitis Probable hepatitis C -Hepatitis profile has been sent, liver ultrasound shows fatty infiltration -Speech evaluation today and diet per recommendation (After repeat imaging) : Metabolic Acidosis -We will continue volume resuscitation -Closely monitor intake output ID: Leukocytosis UTI -Patient is been pancultured antibiotics and been initiated, follow cultures and de-escalate as appropriate HEME: Thrombocytopenia -s/p platelet transfusion 05/10/16 with improvement in platelet count from 79 to 146 ENDO: Hyponatremia Hypokalemia Hypophosphatemia -Continue normal saline resuscitation -Electrolyte replacement per protocol Proph: -Bilateral SCDs, IV Protonix. Chemical DVT prophylaxis is contraindicated at this time Total critical care time spent with the patient is 35 minutes Melissa Luna MD May 11, 2016 07:56
[2016-05-11] MEDS ORDERED: hydrALAZINE HCL 20 MG/ML VIAL IV PUSH PRN (08:00)
[2016-05-11] MEDS ORDERED: LABETALOL HCL 100 MG/20 ML VIAL IV PUSH PRN (08:00)
[2016-05-11] MEDS: SODIUM CHLORIDE 0.9% FLUSH 5 ML FLUSH IVF SCH ×2 (08:45→21:00)
[2016-05-11] MEDS: PANTOPRAZOLE SODIUM 40 MG VIAL IV SCH (08:45)
[2016-05-11] MEDS: NS + KCL 40 MEQ INJ 1,000 ML IV SCH ×2 (08:54→15:45)
[2016-05-11] MEDS: POTASSIUM CHLOR 20 MEQ PREMIX 100 ML IV SCH ×2 (08:54→13:03)
--- NOTE | 2016-05-11 09:18 | RADRPT ---
EXAM DATE/TIME: 05/11/2016 08:30 [facility] COMPARISON: No previous studies available for comparison. INDICATIONS : Cirrhosis. MEDICAL HISTORY : Hypertension. Hepatitis. SURGICAL HISTORY : Abdominal surgery. ENCOUNTER: Initial ACUITY: 1 day PAIN SCORE: 0/10 LOCATION: Bilateral upper quadrant abdomen. MEASUREMENTS: LIVER: 15.5 cm length COMMON DUCT: 3 mm RIGHT KIDNEY: 12.1 x 4.9 x 4.9 cm SPLEEN: 9.2 cm length FINDINGS: LIVER: Slightly echogenic without focal lesion or ductal dilatation. Hepatopedal flow. COMMON DUCT: No intraluminal mass or stone visualized. GALLBLADDER: Contains no stones, demonstrates no wall thickening or pericholecystic fluid. PANCREAS: The visualized portions are within normal limits. RIGHT KIDNEY: No hydronephrosis, stone or mass. SPLEEN: No focal lesion. CONCLUSION: 1. Liver is slightly echogenic which can be seen with fatty infiltration/hepatocellular dysfunction. 2. No evidence for cholelithiasis. Geremias Smith MD on May 11, 2016 at 9:14 Board Certified Radiologist. This report was verified electronically.
[2016-05-11] MEDS: THIAMINE INJ 100 MG in SODIUM CHLORIDE 0.9% INJ 100 ML IV SCH (10:25)
[2016-05-11] MEDS: niCARdipine INJ 25 MG in SODIUM CHLOR 0.9% 250 ML INJ 250 ML IV SCH (15:45)
--- NOTE | 2016-05-11 15:53 | HHI.NSPN ---
(Litzy Diaz) Note Status Status: Progress Note (Litzy Diaz) Interval History Interval History This is a 55-year-old female with past medical history of hepatitis and alcohol abuse presents to the emergency department with complaint of altered mental status. Patient's neighbor checks on her once in a while and found her to be confused today with dark stools all over her house. Patient does not know why she is here. She is confused, not oriented. She admits to daily alcohol use and last use was yesterday. She has no acute signs of trauma, however has multiple old ecchymosis. She became hypertensive and was started on a cardene drip. CT showed a basal ganglia hemorrhage. Neurosurgical consultation was requested 05/11: moving right leg more, alert but confused, follows few simple commands. ( Litzy Diaz) Labs, Micro, & Vital Signs Results Date Time Temp Pulse Resp B/P Pulse Ox O2 Delivery O2 Flow Rate FiO2 05/11/16 12:00 98 05/11/16 12:00 98.4 94 16 114/69 99 05/11/16 11:35 98 Nasal Cannula 2.00 05/11/16 10:00 98 05/11/16 08:00 99 05/11/16 08:00 98.4 110 25 136/84 98 05/11/16 06:00 103 05/11/16 04:00 98.7 118 18 125/81 97 05/11/16 04:00 118 05/11/16 02:00 110 05/11/16 00:00 98.4 120 15 135/82 98 05/11/16 00:00 120 05/10/16 22:47 97 Nasal Cannula 2.00 05/10/16 22:00 120 05/10/16 20:00 98.8 116 21 122/79 96 05/10/16 20:00 110 05/10/16 18:01 126 18 135/88 99 Nasal Cannula 2 05/10/16 16:46 108 16 211/130 99 Nasal Cannula 2 05/10/16 15:57 120 16 157/90 97 Room Air 05/11/16 07:00 Intake Total 1039 ml Output Total 1900 ml Balance -861 ml Constitutional Vital Signs Date Time Temp Pulse Resp B/P Pulse Ox O2 Delivery O2 Flow Rate FiO2 05/11/16 12:00 98 05/11/16 12:00 98.4 94 16 114/69 99 05/11/16 11:35 98 Nasal Cannula 2.00 05/11/16 10:00 98 05/11/16 08:00 99 05/11/16 08:00 98.4 110 25 136/84 98 05/11/16 06:00 103 05/11/16 04:00 98.7 118 18 125/81 97 05/11/16 04:00 118 05/11/16 02:00 110 05/11/16 00:00 98.4 120 15 135/82 98 05/11/16 00:00 120 05/10/16 22:47 97 Nasal Cannula 2.00 05/10/16 22:00 120 05/10/16 20:00 98.8 116 21 122/79 96 05/10/16 20:00 110 05/10/16 18:01 126 18 135/88 99 Nasal Cannula 2 05/10/16 16:46 108 16 211/130 99 Nasal Cannula 2 05/10/16 15:57 120 16 157/90 97 Room Air 05/11/16 07:00 Intake Total 1039 ml Output Total 1900 ml Balance -861 ml (Litzy Diaz) Review of Systems/Exam Exam Ms. Gabriel is alert, confused, oriented to self only. Followed only few simple commands. Cranial nerve examination demonstrates the pupils to be equal, round, and reactive to light. Extra-ocular movements are intact with normal convergence. Mild right facial weakness. Neck is soft and supple. Motor: moves right arm 4/5, right leg 3/5, moves left side well There is a bilateral plantar flexion response. Cerebellar examination is limited due to the patient condition, but no obvious deficits are noted. (Litzy Diaz) Medications Current Medications Current Medications Medications (Trade) Dose Ordered Sig/Nicole Route PRN Reason Start Time Stop Time Status Last Admin Dose Admin Pantoprazole Sodium 40 mg 40 mg DAILY IV 05/10/16 18:00 05/11/16 08:45 Nicardipine HCl 25 mg/Sodium Chloride 260 ml @ 0 mls/hr TITRATE IV 05/10/16 17:15 05/11/16 15:45 Potassium Chloride 100 ml @ 50 mls/hr Q2H PRN IV For Potassium 2.8 - 3.2 mEq/L 05/10/16 19:00 Potassium Chloride (KCl 20 Meq Premix Inj) 100 ml @ 50 mls/hr Q2H PRN IV For Potassium 2.8 - 3.2 mEq/L 05/10/16 19:00 05/11/16 06:30 Potassium Chloride 40 meq 40 meq UNSCH PRN PO/TUBE For Potassium 3.3 - 3.5 mEq/L 05/10/16 19:00 Potassium Chloride 100 ml @ 25 mls/hr UNSCH PRN IV For Potassium 3.3 - 3.5 mEq/L 05/10/16 19:00 Potassium Chloride 100 ml @ 50 mls/hr Q2H PRN IV For Potassium 3.3 - 3.5 mEq/L 05/10/16 19:00 Magnesium Sulfate/ Sodium Chloride (Magnesium Sulfate Inj/NS Inj) 100 ml @ 50 mls/hr UNSCH PRN IV For Magnesium 0.9 - 1.1 mg/dL 05/10/16 19:00 Magnesium Oxide 800 mg 800 mg UNSCH PRN PO For Magnesium 1.2 - 1.6 mg/dL 05/10/16 19:00 Magnesium Sulfate/ Sodium Chloride (Magnesium Sulfate Inj/NS Inj) 100 ml @ 50 mls/hr UNSCH PRN IV For Magnesium 1.2 - 1.6 mg/dL 05/10/16 19:00 Potassium Phosphate 2000 mg 2,000 mg Q4H PRN PO For Phosphorus < 2.5 mg/dL 05/10/16 19:00 Sodium Phosphate/ Sodium Chloride (Sodium Phosphate Inj/NS 250 ml Inj) 250 ml @ 42 mls/hr UNSCH PRN IV For Phosphorus < 2.5 mg/dL 05/10/16 19:00 Potassium Chloride (KCl 40 Meq/30 ml Liq) 40 meq UNSCH PRN PO/TUBE SEE LABEL COMMENTS 05/10/16 19:00 Potassium Phosphate 2000 mg 2,000 mg UNSCH PRN PO/TUBE SEE LABEL COMMENTS 05/10/16 19:00 Potassium Phosphate/Sodium Chloride (Potassium Phosphate Inj/NS 250 ml Inj) 260 ml @ 42 mls/hr UNSCH PRN IV SEE LABEL COMMENTS 05/10/16 19:00 IV Flush (NS Flush) 2 ml UNSCH PRN IVF FLUSH AFTER USING IV ACCESS 05/10/16 19:00 IV Flush (NS Flush) 2 ml BID IVF 05/10/16 21:00 05/10/16 21:00 Acetaminophen (Tylenol) 650 mg Q6H PRN PO PAIN 1-10 AND/OR FEVER >101F 05/10/16 19:00 Ondansetron HCl (Zofran Inj) 4 mg Q6H PRN IV NAUSEA OR VOMITING 05/10/16 19:00 Miscellaneous Information 1 Q361D XX 05/10/16 19:00 05/10/16 19:00 Chlorhexidine Gluconate (Chlorhexidine 2% Cloth) 3 pack Taper DAILY@04 TOP 05/11/16 04:00 05/07/17 03:59 05/10/16 20:59 Chlorhexidine Gluconate 3 pack 3 pack UNSCH PRN [facility] 05/10/16 19:00 Multivitamins/ Folic Acid/Sodium Chloride (Mvi-12 Inj/ Folvite Inj/NS 500 ml Inj) 510.2 ml @ 125 mls/hr Q24H IV 05/10/16 21:00 05/15/16 20:59 05/10/16 21:00 Morphine Sulfate 1 mg 1 mg Q12H PRN IV PUSH PAIN 1-10 05/11/16 04:15 05/11/16 04:24 Thiamine HCl/ Sodium Chloride (Thiamine Inj/NS Inj) 101 ml @ 101 mls/hr DAILY IV 05/11/16 10:00 05/11/16 10:25 Lorazepam (Ativan Inj) 1 mg Q2H PRN IV PUSH delirium/seizure 05/11/16 08:00 Labetalol HCl (Trandate Inj) 10 mg Q4H PRN IV PUSH SYS BP GREATER THAN 160 MMHG 05/11/16 08:00 Hydralazine HCl (Apresoline Inj) 20 mg Q4H PRN IV PUSH SYS BP GREATER THAN 160 MMHG 05/11/16 08:00 Amlodipine Besylate 10 mg 10 mg DAILY PO 05/11/16 09:00 05/11/16 08:45 Potassium Chloride/Sodium Chloride (NS + KCl 40 Meq Inj) 1,000 ml @ 125 mls/hr Q8H IV 05/11/16 08:00 05/11/16 15:45 (Litzy Diaz) Medical Decision Making MDM Remarks 55 y/o female with left thalamic bleed, most likely hypertensive or cocaine abuse, r/o underlying mass lesions, AVMs right hemiparesis AMS with fecal incontinence, r/or seizures drug abuse, positive for cocaine (Litzy Diaz) Plan Plan Remarks MRI Brain, MRA Head pending EEG pending cont bp management per critical care cont nonsurgical treatment of ICH cont neuro checks q 1 hour nonchemical DVT prophylaxis with SCDs and TEDs Protonix for stress ulcer prophylaxis (Litzy Diaz) Attending Statement The exam, history, and the medical decision-making described in the above note were completed with the assistance of the mid-level provider. I reviewed and agree with the findings presented. I attest that I had a [id number] encounter with the patient on the same day, and personally performed and documented my assessment and findings in the medical record. (Noman Venegas MD) Litzy Diaz May 11, 2016 15:53 Noman Venegas MD May 14, 2016 09:33
--- NOTE | 2016-05-11 16:32 | EC ---
Study Study Date:05/11/2016 STUDY CONCLUSIONS SUMMARY - Left ventricle: The cavity size was normal. Wall thickness was normal. Systolic function was normal. The estimated ejection fraction was 60%. Wall motion was normal; there were no regional wall motion abnormalities. - Aortic valve: Mild regurgitation. - Mitral valve: Mildly calcified annulus. If LV function is below 40, please consider prescribing an ACEI or ARB or document rationale for non-use. PROCEDURE DATA STUDY STATUS: Elective. Procedure: Transthoracic echocardiography. Image quality was good. Scanning was performed from the parasternal, apical, and subcostal acoustic windows. Study completion: The patient tolerated the procedure well. Transthoracic echocardiography. M-mode, complete 2D, complete spectral Doppler, and color Doppler. Patient status: Inpatient. CARDIAC ANATOMY LEFT VENTRICLE: The cavity size was normal. Wall thickness was normal. Systolic function was normal. The estimated ejection fraction was 60%. Wall motion was normal; there were no regional wall motion abnormalities. AORTIC VALVE: Trileaflet; normal thickness leaflets. Doppler: Transvalvular velocity was within the normal range. There was no stenosis. Mild regurgitation. Mean gradient: 5mm Hg (S). AORTA: Aortic root: The aortic root was normal in size. MITRAL VALVE: Mildly calcified annulus. Doppler: Transvalvular velocity was within the normal range. There was no evidence for stenosis. No regurgitation. Valve area by pressure half-time: 5.5cm^2. Mean gradient: 3mm Hg (D). Peak gradient: 8mm Hg (D). LEFT ATRIUM: The atrium was normal in size. RIGHT VENTRICLE: The cavity size was normal. Wall thickness was normal. PULMONIC VALVE: Doppler: Transvalvular velocity was within the normal range. There was no evidence for stenosis. No regurgitation. TRICUSPID VALVE: Structurally normal valve. Doppler: Transvalvular velocity was within the normal range. Trace regurgitation. PULMONARY ARTERY: The main pulmonary artery was normal-sized. Systolic pressure was within the normal range. RIGHT ATRIUM: The atrium was normal in size. PERICARDIUM: There was no pericardial effusion. SYSTEMIC VEINS: Inferior vena cava: The vessel was normal in size. BASIC MEASUREMENTS ADULT Normal Left ventricle LV internal dimension, ED, chordal level, *31.4 mm 43-52 PLAX LV posterior wall thickness, ED 8.54 mm IVS/LVPW ratio, ED 1.26 <1.3 Ventricular septum Septal thickness, ED 10.8 mm Left atrium Anterior-posterior dimension 23 mm Right ventricle RV internal dimension, ED, PLAX 20.2 mm 19-38 DOPPLER MEASUREMENTS ADULT Normal Main pulmonary artery Pressure, S 18 mm Hg =30 Aortic valve Peak velocity, S 141 cm/s Mean velocity, S 100 cm/s VTI, S 27 cm Mean gradient, S 5 mm Hg Mitral valve Peak E-wave velocity 95 cm/s Peak A-wave velocity 119 cm/s Mean velocity, D 81.9 cm/s Pressure half-time 40 ms Mean gradient, D 3 mm Hg Peak gradient, D 8 mm Hg Peak E/A ratio 0.8 Valve area, pressure half-time 5.5 cm^2 Tricuspid valve Regurgitant peak velocity 135 cm/s Peak RV-RA gradient, S 7 mm Hg Maximal regurgitant velocity 135 cm/s Systemic veins Estimated CVP 10 mm Hg Right ventricle RV pressure, S 18 mm Hg <30 LEGEND: Mean values are shown as u=mean value. Asterisk (*) vasquez values outside specified normal range. Prepared and signed by Yuan Modi [id number]
--- NOTE | 2016-05-11 16:38 | EKG ---
Date Performed: 05/10/2016 Time Performed: 15:02:55 PTAGE: 55 years EKG: ECTOPIC ATRIAL TACHYCARDIA WITH FIRST DEGREE AV BLOCK MODERATE ST DEPRESSION ABNORMAL ECG NO PREVIOUS TRACING DOCTOR: Julee Higgins Interpretating Date/Time 05/11/2016 16:36:00
--- NOTE | 2016-05-11 16:39 | RADRPT ---
EXAM DATE/TIME: 05/11/2016 16:03 [facility] COMPARISON: No previous studies available for comparison. INDICATIONS : Screening for MRI. MEDICAL HISTORY : None. SURGICAL HISTORY : None. ENCOUNTER: Initial ACUITY: 1 day PAIN SCORE: Non-responsive. LOCATION: all quadrants. FINDINGS: Examination of the abdomen demonstrates a normal bowel gas pattern. No free air is identified. No o rganomegaly is evident. Osseous structures are intact. There are some atherosclerotic changes in abd ominal aorta. No MRI incompatible foreign body is identified. CONCLUSION: No evidence of obstruction. No MRI incompatible foreign body is identified. Estrada Vigil MD on May 11, 2016 at 16:36 Board Certified Radiologist. This report was verified electronically.
[2016-05-11 16:53] LABS: AUTOMATED NEUTROPHIL # 8.3 TH/MM3 (1.8-7.7); BASOPHIL % 0.2 % (0.0-2.0); EOSINOPHIL % 0.1 % (0.0-4.0); HEMATOCRIT 33.8 % (35.0-46.0); HEMO FLAGS DIFF FINAL; LYMPH % 8.4 % (9.0-44.0); LYMPHOCYTE # 0.9 TH/MM3 (1.0-4.8); MEAN CELL VOLUME 99.5 FL (80.0-100.0); MEAN CORPUSCULAR HEMOGLOBIN 34.1 PG (27.0-34.0); MEAN CORPUSCULAR HGB CONC 34.3 % (32.0-36.0); MONO % 14.2 % (0.0-8.0); NEUT % 77.1 % (16.0-70.0); PLATELET COUNT 133 TH/MM3 (150-450); RED CELL DISTRIBUTION WIDTH 12.7 % (11.6-17.2); WHITE BLOOD COUNT 10.8 TH/MM3 (4.0-11.0)
[2016-05-11] MEDS ORDERED: GADODIAMIDE PF 287 MG/ML 10 ML VIAL (for RAD MRI) IV ONE (16:55)
--- NOTE | 2016-05-11 17:01 | RADRPT ---
EXAM DATE/TIME: 05/11/2016 16:21 [facility] COMPARISON: No previous studies available for comparison. INDICATIONS : Altered mental status. MEDICAL HISTORY : Hepatitis C. Hypertension. SURGICAL HISTORY : Abdominal surgery. ENCOUNTER: Subsequent ACUITY: 2 day PAIN SCORE: 2/10 LOCATION: head Please note a normal MRA of the brain does not entirely exclude the possibility of a small aneurysm, nor the possibility of distal intracranial vessel disease. TECHNIQUE: 3D time of flight MRA was performed. Source images, multiplanar STS MIP, and 3D volume MIP reconstru ctions were reviewed. FINDINGS: There is mild motion degradation, adequate visualization of the major intracranial arteries out to th e second-order branch vessels. There is no evidence for aneurysm, vessel truncation or stenosis, and no evidence for vascular malformation. Incidental origin of the right posterior cerebral arter y. A left thalamic hematoma is noted. CONCLUSION: No acute kaibab of Earl vascular abnormalities. Jeremy Toledo MD on May 11, 2016 at 16:53 Board Certified Radiologist. This report was verified electronically.
--- NOTE | 2016-05-11 17:21 | RADRPT ---
EXAM DATE/TIME: 05/11/2016 16:21 [facility] COMPARISON: CT BRAIN W/O CONTRAST, May 10, 2016, 15:07. INDICATIONS : Altered mental status. CONTRAST: 10 cc Omniscan (gadodiamide) IV MEDICAL HISTORY : Hypertension. Hepatitis C. SURGICAL HISTORY : Abdominal surgery. ENCOUNTER: Subsequent ACUITY: 2 day PAIN SCORE: 3/10 LOCATION: head TECHNIQUE: Multiplanar, multisequence MRI of the brain was performed both prior to and following the administrat ion of paramagnetic contrast. FINDINGS: CEREBRUM: The ventricles are normal for age. There is bilateral cortical atrophy.. No extraaxial fluid collect ions are seen. There is a focal area of acute hemorrhage involving the left thalamus measuring appro ximately 2.8 cm. This correlates with the recent CT scan of the brain. No significant mass effect or midline shift is seen. The pituitary gland and suprasellar cistern are normal in configuration. WHITE MATTER: Mild chronic white matter changes are seen bilaterally. POSTERIOR FOSSA: The cerebellum and brainstem are intact. The 4th ventricle is midline. The cerebellopontine angle is unremarkable. The cerebellar tonsils are normal in position. DIFFUSION IMAGING: No significant focal areas of restricted diffusion are seen. EXTRACRANIAL: The visualized portions of the orbits and paranasal sinuses are unremarkable. POST-CONTRAST: No abnormal areas of parenchymal or dural enhancement. No evidence of blood-brain barrier breakdown. CONCLUSION: 1. Focal acute intraparenchymal hemorrhage in the left thalamus measuring 2.8 cm most likely represen ting a focal hemorrhagic infarction. 2. Bilateral cortical atrophy and mild chronic white matter changes. 3. No enhancing mass occupying lesions are demonstrated. Estrada Vigil MD on May 11, 2016 at 17:15 Board Certified Radiologist. This report was verified electronically.
[2016-05-11] MEDS: MULTIVITAMIN INJ 10 ML, FOLIC ACID INJ 1 MG in SODIUM CHLORID 0.9% 500 ML INJ 500 ML IV SCH (21:00)
--- NOTE | 2016-05-11 22:11 | MG ---
cc: ISABELLE CARLOS Lab No: [id number] Date: 05/11/16 Age: 55 Sex: F Race: Hyperventilation not performed. Left thalamic hemorrhage. A 55-year-old woman. MEDICATIONS 1. Levaquin. 2. Morphine. DESCRIPTION OF RECORD Some focal theta slowing is seen over the left temporal head range but no epileptiform or seizure activity is noted. Some muscle artifact is seen. Photic stimulation is performed without significant posterior driving. IMPRESSION Some mild left temporal slowing, otherwise, an unremarkable EEG. There is no other focal abnormality. No seizure activity was seen. MD MICHAEL Wood/BARBARA /9:02 PM /9:58 PM
[2016-05-12] VITALS (12 sets, daily range): BP systolic 127–156; BP diastolic 74–84; PULSE 76–102; RESP 16–23; TEMP 98.2–99.5; O2SAT 98–100
[2016-05-12] MEDS: NS + KCL 40 MEQ INJ 1,000 ML IV SCH ×4 (00:43→17:02)
[2016-05-12] MEDS: POTASSIUM CHLOR 20 MEQ PREMIX 100 ML IV PRN ×4 (03:00→09:33)
[2016-05-12] MEDS: CHLORHEXIDINE GLUCONATE 2 % 1 PACK (2 CLOTHS) TOP SCH (04:00)
[2016-05-12] MEDS: RESP: ALBUTEROL 2.5 MG/IPRATROPIUM 0.5 MG NEB (SCH) INH ×4 (04:00→21:23)
[2016-05-12 04:11] LABS: AUTOMATED NEUTROPHIL # 8.1 TH/MM3 (1.8-7.7); BASOPHIL % 0.2 % (0.0-2.0); EOSINOPHIL % 0.3 % (0.0-4.0); HEMATOCRIT 32.9 % (35.0-46.0); HEMO FLAGS DIFF FINAL; LYMPH % 9.2 % (9.0-44.0); LYMPHOCYTE # 0.9 TH/MM3 (1.0-4.8); MEAN CELL VOLUME 97.8 FL (80.0-100.0); MEAN CORPUSCULAR HEMOGLOBIN 32.8 PG (27.0-34.0); MEAN CORPUSCULAR HGB CONC 33.6 % (32.0-36.0); MONO % 11.7 % (0.0-8.0); NEUT % 78.6 % (16.0-70.0); PLATELET COUNT 134 TH/MM3 (150-450); RED BLOOD COUNT 3.37 MIL/MM3 (4.00-5.30); RED CELL DISTRIBUTION WIDTH 12.7 % (11.6-17.2); WHITE BLOOD COUNT 10.3 TH/MM3 (4.0-11.0)
[2016-05-12 04:17] LABS: APTT (PATIENT) 27.1 SEC (22.6-28.8); PROTHROMBIN TIME - PATIENT 9.7 SEC (9.8-11.4)
[2016-05-12 04:44] LABS: ALKALINE PHOSPHATASE 49 U/L (45-117); ALT (GPT) 55 U/L (10-53); ANION GAP 9 MEQ/L (5-15); AST (GOT) 60 U/L (15-37); BICARBONATE 23.7 MEQ/L (21.0-32.0); BLOOD UREA NITROGEN 12 MG/DL (7-18); CHLORIDE 99 MEQ/L (98-107); GLOMERULAR FILTRATION RATE 145 ML/MIN (>89); MAGNESIUM 1.6 MG/DL (1.5-2.5); POTASSIUM 3.1 MEQ/L (3.5-5.1); SODIUM (NA) 132 MEQ/L (136-145); TOTAL BILIRUBIN ADULT 1.5 MG/DL (0.2-1.0)
--- NOTE | 2016-05-12 06:15 | RADRPT ---
EXAM DATE/TIME: 05/12/2016 05:16 [facility] COMPARISON: CHEST SINGLE AP, May 10, 2016, 14:39. INDICATIONS : Shortness of breath. MEDICAL HISTORY : Hypertension. Hepatitis C. SURGICAL HISTORY : None. ENCOUNTER: Subsequent ACUITY: 4 - 6 days PAIN SCORE: Non-responsive. LOCATION: Bilateral chest FINDINGS: A single view of the chest demonstrates the lungs to be symmetrically aerated without evidence of mas s, infiltrate or effusion. The cardiomediastinal contours are unremarkable. Osseous structures are intact. CONCLUSION: No acute disease. Nadir Hebert MD on May 12, 2016 at 6:14 Board Certified Radiologist. This report was verified electronically.
[2016-05-12] MEDS: SODIUM CHLORIDE 0.9% FLUSH 5 ML FLUSH IVF SCH ×2 (08:45→20:50)
[2016-05-12] MEDS: PANTOPRAZOLE SODIUM 40 MG VIAL IV SCH (08:45)
[2016-05-12] MEDS: THIAMINE INJ 100 MG in SODIUM CHLORIDE 0.9% INJ 100 ML IV SCH (08:45)
--- NOTE | 2016-05-12 09:16 | HHI.CCPN ---
Subjective Remarks/Hospital Course Patient is a 55-year-old female with a history of alcohol and cocaine abuse as well as hepatitis the presents the emergency department with altered mental status. Patient's neighbor went to her place and found her confused with feces all over her house. The patient was unaware of why she was in the emergency department. She did not have any complaints. She was only awake and alert 2 in the emergency department. She admitted to daily alcohol use and had no evidence of any trauma. In emergency department she was found to be hypertensive and started on Cardene CT scan of the brain showed evidence of a basal ganglia hemorrhage. Currently being admitted to the intensive care unit for further care and monitoring. 05/11/16: Patient appears mildly anxious tachycardic. Blood pressure adequately controlled with Cardene infusion now on 2 mg per hour. Repeat CT head and MRI of the brain are pending at this time. Nonoperative management recommended by neuro surgery. Potassium noted to be 2.4, getting replaced SUBJECTIVE 05/12/16 no acute events overnight blood pressure adequately controlled. MRI of the brain shows left basal ganglia bleed, possible hemorrhagic infarct. Will d/w neurosurgery Objective - Vital Signs Date Time Temp Pulse Resp B/P Pulse Ox O2 Delivery O2 Flow Rate FiO2 05/12/16 06:00 76 05/12/16 04:00 98.9 21 140/77 99 05/11/16 22:20 Nasal Cannula 3.00 Intake and Output 05/11/16 05/11/16 05/12/16 08:00 16:00 00:00 Intake Total 680 ml 2488 ml 715 ml Output Total 950 ml 1201 ml 1350 ml Balance -270 ml 1287 ml -635 ml Result Diagram: 05/12/16 0342 05/12/16 0342 Other Results Laboratory Tests Test 05/10/16 14:54 Blood Gas Puncture Site RT RADIAL Blood Gas Patient Temperature 98.6 Blood Gas HCO3 18 mmol/L (22-26) Blood Gas Base Excess -4.2 mmol/L (-2-2) Blood Gas Oxygen Saturation 93 % (90-100) Arterial Blood pH 7.56 (7.380-7.420) Arterial Blood Partial 20 mmHg (38-42) Pressure CO2 Arterial Blood Partial 88 mmHG Pressure O2 (61-120) Arterial Blood Oxygen Content 17.6 Vol % (12.0-20.0) Arterial Blood 1.8 % (0-4) Carboxyhemoglobin Arterial Blood Methemoglobin 1.7 % (0-2) Blood Gas Hemoglobin 13.4 G/DL (12.0-16.0) Oxygen Delivery Device NASAL CANNULA Blood Gas Liter Flow 2 L/M Imaging Last [address] 05/10/16 1431 Signed Impressions: Service Date/Time: Tuesday, May 10, 2016 15:07 - CONCLUSION: 1. 2.3 cm left thalamic hypertensive type hemorrhage with approximately 4 mm of [id number] subfalcine shift. 2. Mild periventricular small vessel ischemic demyelination. 3. Results were called to Dr. Barboza at the time of this dictation. Nicholas Dove MD Chest X-Ray 05/10/16 1431 Signed Impressions: Service Date/Time: Tuesday, May 10, 2016 14:39 - CONCLUSION: No acute disease. Pedro Escobar MD Objective Remarks Gen.: Patient is confused, disheveled HEENT: Neck supple, no JVD, trachea midline CVS: Tachycardic rate and rhythm, normal S1-S2 without rub murmur gallop Respiratory: Clear to auscultation bilaterally no wheezes rales or rhonchi GI: Soft, nontender, nondistended, no organomegaly, no rebound tenderness : Lala catheter in place Extremities: Positive multiple old ecchymotic areas, positive pulses, capillary refills intact, no clubbing Skin: Positive old ecchymosis, bruising to the anterior chest, left shoulder Neuro: Awake and alert 2, pupils are equal, extraocular muscles are intact, cranial nerves are grossly intact, neck is supple, Normal strength L upper and lower ext, RUE 4/5 and RLE 3/5 strength Urinary Catheter: Yes Assessment to: Continue A/P Assessment and Plan NEURO: Left basal ganglia bleed with 4mm MLS Right hemiparesis Alcohol and cocaine abuse dependence -Neurosurgery (Dr. Venegas) is following the patient there are no plans for operative intervention at this time -MRI- focal basal ganglia hemorrhage ? Hemorrhagic infarct-Will discuss with neurosurgery -Target systolic blood pressure less than 140-150, keep Na >145, avoid hypoxia, hypercarbia -No indication for seizure prophylaxis -Watch for alcohol and drug withdrawal, supplement thiamine. Ativan when necessary for withdrawal and seizures CVS: Hypertensive emergency Lactic acidosis -DC Cardene infusion -Norvasc 10 mg daily. IV labetalol and hydralazine for blood pressure above 150 -2-D echo to evaluate LV function Resp: Tobacco abuse -DuoNeb every 6 hours and when necessary -Aggressive pulmonary toilet GI: Transaminitis Probable hepatitis C -Hepatitis profile has been sent, liver ultrasound shows fatty infiltration -Diet per speech recommendation (soft diet with thin liquids) : Metabolic Acidosis -Continue NS at 125 ml per hour -Closely monitor intake output ID: Leukocytosis UTI -Was receiving Levaquin. Start cefepime 1 g IV every 12. Await urine culture- growing gram-negative rods ID pending HEME: Thrombocytopenia-secondary to alcohol abuse -s/p platelet transfusion 05/10/16 with improvement in platelet count from 79 to 146, today 134 ENDO: Hyponatremia Hypokalemia Hypophosphatemia -Continue normal saline resuscitation -Electrolyte replacement per protocol Proph: -Bilateral SCDs, IV Protonix. Chemical DVT prophylaxis is contraindicated at this time, until cleared by neurosurgery Level 3 Consult hospitalist to assume care in Melissa Luna MD May 12, 2016 09:16
[2016-05-12] MEDS: MAGNESIUM SULFATE 1 GM PREMIX 100 ML IV SCH (09:33)
--- NOTE | 2016-05-12 10:50 | HHI.NSPN ---
(Litzy Diaz) Note Status Status: Progress Note (Litzy Diaz) Interval History Interval History This is a 55-year-old female with past medical history of hepatitis and alcohol abuse presents to the emergency department with complaint of altered mental status. Patient's neighbor checks on her once in a while and found her to be confused today with dark stools all over her house. Patient does not know why she is here. She is confused, not oriented. She admits to daily alcohol use and last use was yesterday. She has no acute signs of trauma, however has multiple old ecchymosis. She became hypertensive and was started on a cardene drip. CT showed a basal ganglia hemorrhage. Neurosurgical consultation was requested 05/11: moving right leg more, alert but confused, follows few simple commands. 05/12: no acute events overnight, no seizures. feeling better today. (Litzy Diaz) Labs, Micro, & Vital Signs Results Date Time Temp Pulse Resp B/P Pulse Ox O2 Delivery O2 Flow Rate FiO2 05/12/16 06:00 76 05/12/16 04:00 98.9 76 21 140/77 99 05/12/16 04:00 76 05/12/16 02:00 84 05/12/16 00:00 98.2 95 21 139/78 100 05/12/16 00:00 86 05/11/16 22:20 95 Nasal Cannula 3.00 05/11/16 22:00 106 05/11/16 20:00 98.7 114 27 112/72 100 05/11/16 20:00 106 05/11/16 18:00 98 05/11/16 16:00 98 05/11/16 16:00 98.8 101 18 124/76 98 05/11/16 14:00 98 05/11/16 12:00 98 05/11/16 12:00 98.4 94 16 114/69 99 05/11/16 11:35 98 Nasal Cannula 2.00 05/12/16 07:00 Intake Total 4086 ml Output Total 3551 ml Balance 535 ml Constitutional Vital Signs Date Time Temp Pulse Resp B/P Pulse Ox O2 Delivery O2 Flow Rate FiO2 05/12/16 06:00 76 05/12/16 04:00 98.9 76 21 140/77 99 05/12/16 04:00 76 05/12/16 02:00 84 05/12/16 00:00 98.2 95 21 139/78 100 05/12/16 00:00 86 05/11/16 22:20 95 Nasal Cannula 3.00 05/11/16 22:00 106 05/11/16 20:00 98.7 114 27 112/72 100 05/11/16 20:00 106 05/11/16 18:00 98 05/11/16 16:00 98 05/11/16 16:00 98.8 101 18 124/76 98 05/11/16 14:00 98 05/11/16 12:00 98 05/11/16 12:00 98.4 94 16 114/69 99 05/11/16 11:35 98 Nasal Cannula 2.00 05/12/16 07:00 Intake Total 4086 ml Output Total 3551 ml Balance 535 ml (Litzy Diaz) Review of Systems/Exam Exam Ms. Gabriel is alert, confused, oriented to self only and place. Follows few simple commands. Cranial nerve examination demonstrates the pupils to be equal, round, and reactive to light. Extra-ocular movements are intact with normal convergence. Mild right facial weakness. Neck is soft and supple. Motor: moves right arm 4/5, right leg 3 to 4-/5, moves left side well There is a bilateral plantar flexion response. Cerebellar examination is limited due to the patient condition, but no obvious deficits are noted. (Litzy Diaz) Medical Decision Making MDM Remarks 55 y/o female with left thalamic bleed, most likely hypertensive or cocaine abuse, r/o underlying mass lesions, AVMs. MRI/MRA Brain no evidence of mass lesions or vascular abn. right hemiparesis AMS with fecal incontinence, r/or seizures drug abuse, positive for cocaine (Litzy Diaz) Plan Plan Remarks MRI's reviewed EEG negative for seizures neuro stable, improving cont medical management nonchemical DVT prophylaxis in view of ICH cont therapy, ok OOB will sign off, call prn (Litzy Diaz) Attending Statement The exam, history, and the medical decision-making described in the above note were completed with the assistance of the mid-level provider. I reviewed and agree with the findings presented. I attest that I had a [id number] encounter with the patient on the same day, and personally performed and documented my assessment and findings in the medical record. (Noman Veneags MD) Litzy Diaz May 12, 2016 10:50 Noman Venegas MD May 14, 2016 09:34
[2016-05-12] MEDS: CEFEPIME INJ 1,000 MG in SODIUM CHLORIDE 0.9% INJ 100 ML IV SCH ×2 (11:08→20:49)
[2016-05-12] MEDS ORDERED: MIDAZOLAM HCL 5 MG/ML VIAL (1 ML) ONE (12:59)
[2016-05-12] MEDS ORDERED: VECURONIUM BROMIDE 10 MG VIAL ONE (13:00)
[2016-05-12] MEDS: MULTIVITAMIN INJ 10 ML, FOLIC ACID INJ 1 MG in SODIUM CHLORID 0.9% 500 ML INJ 500 ML IV SCH (20:51)
[2016-05-12 22:43] LABS: POTASSIUM 4.2 MEQ/L (3.5-5.1)
[2016-05-13] VITALS (13 sets, daily range): BP systolic 116–177; BP diastolic 76–92; PULSE 86–104; RESP 18–25; TEMP 96.6–98.6; O2SAT 83–100
[2016-05-13] MEDS: NS + KCL 40 MEQ INJ 1,000 ML IV SCH ×3 (01:15→17:10)
[2016-05-13] MEDS: RESP: ALBUTEROL 2.5 MG/IPRATROPIUM 0.5 MG NEB (SCH) INH ×4 (03:51→21:27)
[2016-05-13] MEDS: CHLORHEXIDINE GLUCONATE 2 % 1 PACK (2 CLOTHS) TOP SCH (04:00)
[2016-05-13 05:36] LABS: ALKALINE PHOSPHATASE 55 U/L (45-117); ALT (GPT) 55 U/L (10-53); ANION GAP 8 MEQ/L (5-15); AST (GOT) 54 U/L (15-37); BICARBONATE 23.7 MEQ/L (21.0-32.0); BLOOD UREA NITROGEN 10 MG/DL (7-18); CHLORIDE 102 MEQ/L (98-107); GLOMERULAR FILTRATION RATE 145 ML/MIN (>89); MAGNESIUM 1.7 MG/DL (1.5-2.5); POTASSIUM 3.5 MEQ/L (3.5-5.1); SODIUM (NA) 134 MEQ/L (136-145); TOTAL BILIRUBIN ADULT 1.1 MG/DL (0.2-1.0)
[2016-05-13] MEDS: THIAMINE INJ 100 MG in SODIUM CHLORIDE 0.9% INJ 100 ML IV SCH (08:25)
[2016-05-13] MEDS: SODIUM CHLORIDE 0.9% FLUSH 5 ML FLUSH IVF SCH ×2 (08:26→23:09)
[2016-05-13] MEDS: CEFEPIME INJ 1,000 MG in SODIUM CHLORIDE 0.9% INJ 100 ML IV SCH ×2 (10:49→23:08)
--- NOTE | 2016-05-13 17:59 | HHI.PR ---
Subjective Remarks patient has no complaints denies chest pain/sob no fevers denies diarrhea sodium trending up Objective Vitals Vital Signs Date Time Temp Pulse Resp B/P Pulse Ox O2 Delivery O2 Flow Rate FiO2 05/13/16 16:27 98.3 93 20 151/92 99 05/13/16 16:01 92 05/13/16 14:00 92 05/13/16 12:00 97.8 95 22 146/81 98 05/13/16 12:00 95 05/13/16 10:00 90 05/13/16 08:00 97.6 86 21 156/85 99 05/13/16 08:00 93 05/13/16 06:00 88 05/13/16 04:00 90 22 146/81 100 05/13/16 04:00 92 05/13/16 02:00 94 05/13/16 00:00 90 05/13/16 00:00 98.2 103 18 116/76 100 05/12/16 22:00 86 05/12/16 20:00 82 05/12/16 20:00 98.3 84 23 156/84 100 05/12/16 18:00 102 I/O 05/12/16 05/12/16 05/12/16 05/13/16 05/13/16 05/13/16 07:00 15:00 23:00 07:00 15:00 23:00 Intake Total 883 ml 1030 ml 1330 ml 1504 ml 1293 ml Output Total 1000 ml 1200 ml 1600 ml 2000 ml 1600 ml Balance -117 ml -170 ml -270 ml -496 ml -307 ml Intake Oral 620 ml IV Total 883 ml 1030 ml 1330 ml 1504 ml 673 ml Output Urine Total 1000 ml 1100 ml 1500 ml 2000 ml 1550 ml Stool Total 100 ml 100 ml 0 ml 50 ml # Bowel Movements 0 Result Diagram: 05/12/16 0342 05/13/16 0348 Imaging Last Impressions Chest X-Ray 05/12/16 0600 Signed Impressions: Service Date/Time: Thursday, May 12, 2016 05:16 - CONCLUSION: No acute disease. Nadir Hebert MD Liver Ultrasound 05/11/16 0000 Signed Impressions: Service Date/Time: Wednesday, May 11, 2016 08:30 - CONCLUSION: 1. Liver is slightly echogenic which can be seen with fatty infiltration/hepatocellular dysfunction. 2. No evidence for cholelithiasis. Geremias Smith MD Head Magnetic Resonance Angiography 05/11/16 0000 Signed Impressions: Service Date/Time: Wednesday, May 11, 2016 16:21 - CONCLUSION: No acute [place] vascular abnormalities. Jeremy Toledo MD Brain MRI 05/11/16 0000 Signed Impressions: Service Date/Time: Wednesday, May 11, 2016 16:21 - CONCLUSION: 1. Focal acute intraparenchymal hemorrhage in the left thalamus measuring 2.8 cm most likely representing a focal hemorrhagic infarction. 2. Bilateral cortical atrophy and mild chronic white matter changes. 3. No enhancing mass occupying lesions are demonstrated. Estrada Vigil MD Abdomen X-Ray 05/11/16 0000 Signed Impressions: Service Date/Time: Wednesday, May 11, 2016 16:03 - CONCLUSION: No evidence of obstruction. No MRI incompatible foreign body is identified. Estrada Vigil MD Head CT 05/10/16 1431 Signed Impressions: Service Date/Time: Tuesday, May 10, 2016 15:07 - CONCLUSION: 1. 2.3 cm left thalamic hypertensive type hemorrhage with approximately 4 mm of [id number] subfalcine shift. 2. Mild periventricular small vessel ischemic demyelination. 3. Results were called to Dr. Barboza at the time of this dictation. Nicholas Dove MD Objective Remarks Gen.: Patient is awake and alert, disheveled HEENT: Neck supple, no JVD, trachea midline CVS: Tachycardic rate and rhythm, normal S1-S2 without rub murmur gallop Respiratory: Clear to auscultation bilaterally no wheezes rales or rhonchi GI: Soft, nontender, nondistended, no organomegaly, no rebound tenderness : Lala catheter in place Extremities: Positive multiple old ecchymotic areas, positive pulses, capillary refills intact, no clubbing Skin: Positive old ecchymosis, bruising to the anterior chest, left shoulder Neuro: Awake and alert 2, pupils are equal, extraocular muscles are intact, cranial nerves are grossly intact, neck is supple, Normal strength L upper and lower ext, RUE 4/5 and RLE 3/5 strength Medications and IVs Current Medications Medications (Trade) Dose Ordered Sig/Nicole Route Start Time Stop Time Status Last Admin Potassium Chloride 100 ml @ 50 mls/hr Q2H PRN IV 05/10/16 19:00 (KCl 20 Meq Premix Inj) 100 ml @ 50 mls/hr Q2H PRN IV 05/10/16 19:00 05/12/16 09:33 Potassium Chloride 40 meq 40 meq UNSCH PRN PO/TUBE 05/10/16 19:00 05/12/16 08:45 Potassium Chloride 100 ml @ 25 mls/hr UNSCH PRN IV 05/10/16 19:00 Potassium Chloride 100 ml @ 50 mls/hr Q2H PRN IV 05/10/16 19:00 (Magnesium Sulfate Inj/NS Inj) 100 ml @ 50 mls/hr UNSCH PRN IV 05/10/16 19:00 Magnesium Oxide 800 mg 800 mg UNSCH PRN PO 05/10/16 19:00 (Magnesium Sulfate Inj/NS Inj) 100 ml @ 50 mls/hr UNSCH PRN IV 05/10/16 19:00 Potassium Phosphate 2000 mg 2,000 mg Q4H PRN PO 05/10/16 19:00 (Sodium Phosphate Inj/NS 250 ml Inj) 250 ml @ 42 mls/hr UNSCH PRN IV 05/10/16 19:00 (KCl 40 Meq/30 ml Liq) 40 meq UNSCH PRN PO/TUBE 05/10/16 19:00 Potassium Phosphate 2000 mg 2,000 mg UNSCH PRN PO/TUBE 05/10/16 19:00 (Potassium Phosphate Inj/NS 250 ml Inj) 260 ml @ 42 mls/hr UNSCH PRN IV 05/10/16 19:00 (NS Flush) 2 ml UNSCH PRN IVF 05/10/16 19:00 (NS Flush) 2 ml BID IVF 05/10/16 21:00 05/12/16 20:50 (Tylenol) 650 mg Q6H PRN PO 05/10/16 19:00 (Zofran Inj) 4 mg Q6H PRN IV 05/10/16 19:00 Miscellaneous Information 1 Q361D XX 05/10/16 19:00 05/10/16 19:00 (Chlorhexidine 2% Cloth) 3 pack Taper DAILY@04 TOP 05/11/16 04:00 05/07/17 03:59 05/13/16 04:00 Chlorhexidine Gluconate 3 pack 3 pack UNSCH PRN TOP 05/10/16 19:00 (Mvi-12 Inj/ Folvite Inj/NS 500 ml Inj) 510.2 ml @ 125 mls/hr Q24H IV 05/10/16 21:00 05/15/16 20:59 05/12/16 20:51 Morphine Sulfate 1 mg 1 mg Q12H PRN IV PUSH 05/11/16 04:15 05/11/16 04:24 (Thiamine Inj/NS Inj) 101 ml @ 101 mls/hr DAILY IV 05/11/16 10:00 05/13/16 08:25 (Ativan Inj) 1 mg Q2H PRN IV PUSH 05/11/16 08:00 (Trandate Inj) 10 mg Q4H PRN IV PUSH 05/11/16 08:00 (Apresoline Inj) 20 mg Q4H PRN IV PUSH 05/11/16 08:00 Amlodipine Besylate 10 mg 10 mg DAILY PO 05/11/16 09:00 05/13/16 08:25 Potassium Chloride/Sodium Chloride 1,000 ml @ 125 mls/hr Q8H IV 05/12/16 09:15 05/13/16 17:10 (Maxipime Inj/NS Inj) 100 ml @ 200 mls/hr Q12H IV 05/13/16 10:00 05/13/16 10:49 Urinary Catheter: Yes Assessment to: Continue Lala insert reason: Prolonged Immobilization Vascular Central Line Catheter: No A/P Assessment and Plan NEURO: Left basal ganglia bleed with 4mm MLS Right hemiparesis Alcohol and cocaine abuse dependence -Neurosurgery (Dr. Venegas) is following the patient there are no plans for operative intervention at this time -MRI- focal basal ganglia hemorrhage ? Hemorrhagic infarct-Will discuss with neurosurgery -Target systolic blood pressure less than 140-150, keep Na >145, avoid hypoxia, hypercarbia -No indication for seizure prophylaxis -Watch for alcohol and drug withdrawal, supplement thiamine. Ativan when necessary for withdrawal and seizures CVS: Hypertensive emergency Lactic acidosis -DC Cardene infusion -Norvasc 10 mg daily. IV labetalol and hydralazine for blood pressure above 150 -2-D echo to evaluate LV function Resp: Tobacco abuse -DuoNeb every 6 hours and when necessary -Aggressive pulmonary toilet GI: Transaminitis Probable hepatitis C -Hepatitis profile has been sent, liver ultrasound shows fatty infiltration -Diet per speech recommendation (soft diet with thin liquids) : Metabolic Acidosis -Continue NS at 125 ml per hour -Closely monitor intake output ID: Leukocytosis UTI -Was receiving Levaquin. Start cefepime 1 g IV every 12. Await urine culture- growing gram-negative rods ID pending - Continue Cefepime. Urine culture grew E coli. sensitive to cefepime. Patient may be discharged on cefuroxime. HEME: Thrombocytopenia-secondary to alcohol abuse -s/p platelet transfusion 05/10/16 with improvement in platelet count from 79 to 146, today 134 ENDO: Hyponatremia Hypokalemia Hypophosphatemia -Continue normal saline resuscitation -Electrolyte replacement per protocol Proph: -Bilateral SCDs, IV Protonix. Chemical DVT prophylaxis is contraindicated at this time, until cleared by neurosurgery Regan Moise MD May 13, 2016 17:58
[2016-05-13] MEDS: LORazepam 2 MG/ML VIAL IV PUSH PRN (23:17)
[2016-05-14] VITALS (7 sets, daily range): BP systolic 133–170; BP diastolic 75–91; PULSE 96–108; RESP 20–25; TEMP 95–98.5; O2SAT 92–98
[2016-05-14] MEDS: NS + KCL 40 MEQ INJ 1,000 ML IV SCH (01:15)
[2016-05-14] MEDS: MULTIVITAMIN INJ 10 ML, FOLIC ACID INJ 1 MG in SODIUM CHLORID 0.9% 500 ML INJ 500 ML IV SCH ×2 (01:43→22:31)
[2016-05-14] MEDS: CHLORHEXIDINE GLUCONATE 2 % 1 PACK (2 CLOTHS) TOP SCH (04:00)
[2016-05-14] MEDS: RESP: ALBUTEROL 2.5 MG/IPRATROPIUM 0.5 MG NEB (SCH) INH ×4 (04:00→19:58)
[2016-05-14 07:50] LABS: AUTOMATED NEUTROPHIL # 7.4 TH/MM3 (1.8-7.7); BASOPHIL % 0.3 % (0.0-2.0); EOSINOPHIL # 0.1 TH/MM3 (0-0.4); HEMATOCRIT 33.1 % (35.0-46.0); HEMO FLAGS DIFF FINAL; LYMPH % 8.8 % (9.0-44.0); LYMPHOCYTE # 0.9 TH/MM3 (1.0-4.8); MEAN CELL VOLUME 98.4 FL (80.0-100.0); MEAN CORPUSCULAR HEMOGLOBIN 33.2 PG (27.0-34.0); MEAN CORPUSCULAR HGB CONC 33.8 % (32.0-36.0); MONO % 13.7 % (0.0-8.0); NEUT % 76.2 % (16.0-70.0); PLATELET COUNT 182 TH/MM3 (150-450); RED BLOOD COUNT 3.37 MIL/MM3 (4.00-5.30); RED CELL DISTRIBUTION WIDTH 12.9 % (11.6-17.2); WHITE BLOOD COUNT 9.7 TH/MM3 (4.0-11.0)
[2016-05-14 08:28] LABS: ALKALINE PHOSPHATASE 59 U/L (45-117); ALT (GPT) 54 U/L (10-53); ANION GAP 9 MEQ/L (5-15); AST (GOT) 55 U/L (15-37); BICARBONATE 25.1 MEQ/L (21.0-32.0); BLOOD UREA NITROGEN 7 MG/DL (7-18); CHLORIDE 100 MEQ/L (98-107); GLOMERULAR FILTRATION RATE 111 ML/MIN (>89); MAGNESIUM 1.9 MG/DL (1.5-2.5); SODIUM (NA) 134 MEQ/L (136-145)
[2016-05-14] MEDS: POTASSIUM PHOSPHATE/SODIUM PHOSPHATE 250 MG TAB PO SCH (09:00)
[2016-05-14] MEDS: CEFEPIME INJ 1,000 MG in SODIUM CHLORIDE 0.9% INJ 100 ML IV SCH ×2 (10:00→22:31)
[2016-05-14] MEDS: THIAMINE INJ 100 MG in SODIUM CHLORIDE 0.9% INJ 100 ML IV SCH (10:29)
[2016-05-14] MEDS: LISINOPRIL 20 MG TAB PO SCH (17:15)
--- NOTE | 2016-05-14 19:11 | HHI.PR ---
Subjective Remarks Elevated blood pressure today with a systolic blood pressure the 160s and 170s patient c/o pain in buttocks denies cp/sob Objective Vitals Vital Signs Date Time Temp Pulse Resp B/P Pulse Ox O2 Delivery O2 Flow Rate FiO2 05/14/16 16:00 98.5 108 25 167/88 95 05/14/16 12:00 95.0 108 25 140/87 98 05/14/16 08:00 97.0 107 25 162/91 98 05/14/16 04:00 97.4 96 20 143/91 96 05/14/16 00:15 97.8 98 20 170/75 92 05/13/16 21:11 104 05/13/16 20:00 96.6 99 20 166/88 93 I/O 05/13/16 05/13/16 05/13/16 05/14/16 05/14/16 05/14/16 07:00 15:00 23:00 07:00 15:00 23:00 Intake Total 1504 ml 1293 ml 1313 ml 480 ml Output Total 2000 ml 1600 ml 1600 ml 825 ml 850 ml 850 ml Balance -496 ml -307 ml -1600 ml 488 ml -850 ml -370 ml Intake Oral 620 ml 480 ml IV Total 1504 ml 673 ml 1313 ml Output Urine Total 2000 ml 1550 ml 1600 ml 750 ml 850 ml 850 ml Stool Total 0 ml 50 ml 75 ml # Bowel Movements 100 Result Diagram: 05/14/16 0718 05/14/16 0718 Imaging Last Impressions Chest X-Ray 05/12/16 0600 Signed Impressions: Service Date/Time: Thursday, May 12, 2016 05:16 - CONCLUSION: No acute disease. Nadir Hebert MD Liver Ultrasound 05/11/16 0000 Signed Impressions: Service Date/Time: Wednesday, May 11, 2016 08:30 - CONCLUSION: 1. Liver is slightly echogenic which can be seen with fatty infiltration/hepatocellular dysfunction. 2. No evidence for cholelithiasis. Geremias Smith MD Head Magnetic Resonance Angiography 05/11/16 0000 Signed Impressions: Service Date/Time: Wednesday, May 11, 2016 16:21 - CONCLUSION: No acute [place] vascular abnormalities. Jeremy Toledo MD Brain MRI 05/11/16 0000 Signed Impressions: Service Date/Time: Wednesday, May 11, 2016 16:21 - CONCLUSION: 1. Focal acute intraparenchymal hemorrhage in the left thalamus measuring 2.8 cm most likely representing a focal hemorrhagic infarction. 2. Bilateral cortical atrophy and mild chronic white matter changes. 3. No enhancing mass occupying lesions are demonstrated. Estrada Vigil MD Abdomen X-Ray 05/11/16 0000 Signed Impressions: Service Date/Time: Wednesday, May 11, 2016 16:03 - CONCLUSION: No evidence of obstruction. No MRI incompatible foreign body is identified. Estrada Vigil MD Head CT 05/10/16 1431 Signed Impressions: Service Date/Time: Tuesday, May 10, 2016 15:07 - CONCLUSION: 1. 2.3 cm left thalamic hypertensive type hemorrhage with approximately 4 mm of [id number]-hc-[id number] subfalcine shift. 2. Mild periventricular small vessel ischemic demyelination. 3. Results were called to Dr. Barboza at the time of this dictation. Nicholas Dove MD Objective Remarks Gen.: Patient is awake and alert, disheveled HEENT: Neck supple, no JVD, trachea midline CVS: Tachycardic rate and rhythm, normal S1-S2 without rub murmur gallop Respiratory: Clear to auscultation bilaterally no wheezes rales or rhonchi GI: Soft, nontender, nondistended, no organomegaly, no rebound tenderness : Lala catheter in place Extremities: Positive multiple old ecchymotic areas, positive pulses, capillary refills intact, no clubbing Skin: Positive old ecchymosis, bruising to the anterior chest, left shoulder Neuro: Awake and alert 2, pupils are equal, extraocular muscles are intact, cranial nerves are grossly intact, neck is supple, Normal strength L upper and lower ext, RUE 4/5 and RLE 3/5 strength Procedures None Medications and IVs Current Medications Medications (Trade) Dose Ordered Sig/Nicole Route Start Time Stop Time Status Last Admin (NS Flush) 2 ml UNSCH PRN IVF 05/10/16 19:00 05/13/16 23:17 (NS Flush) 2 ml BID IVF 05/10/16 21:00 05/13/16 23:09 (Tylenol) 650 mg Q6H PRN PO 05/10/16 19:00 (Zofran Inj) 4 mg Q6H PRN IV 05/10/16 19:00 Miscellaneous Information 1 Q361D XX 05/10/16 19:00 05/10/16 19:00 (Chlorhexidine 2% Cloth) 3 pack Taper DAILY@04 TOP 05/11/16 04:00 05/07/17 03:59 05/14/16 04:00 Chlorhexidine Gluconate 3 pack 3 pack UNSCH PRN TOP 05/10/16 19:00 (Mvi-12 Inj/ Folvite Inj/NS 500 ml Inj) 510.2 ml @ 125 mls/hr Q24H IV 05/10/16 21:00 05/15/16 20:59 05/14/16 01:43 Morphine Sulfate 1 mg 1 mg Q12H PRN IV PUSH 05/11/16 04:15 05/11/16 04:24 (Thiamine Inj/NS Inj) 101 ml @ 101 mls/hr DAILY IV 05/11/16 10:00 05/14/16 10:29 (Ativan Inj) 1 mg Q2H PRN IV PUSH 05/11/16 08:00 05/13/16 23:17 (Trandate Inj) 10 mg Q4H PRN IV PUSH 05/11/16 08:00 (Apresoline Inj) 20 mg Q4H PRN IV PUSH 05/11/16 08:00 Amlodipine Besylate 10 mg 10 mg DAILY PO 05/11/16 09:00 05/14/16 10:29 Potassium Chloride/Sodium Chloride 1,000 ml @ 125 mls/hr Q8H IV 05/12/16 09:15 05/13/16 17:10 (Maxipime Inj/NS Inj) 100 ml @ 200 mls/hr Q12H IV 05/13/16 10:00 05/14/16 10:00 (K-Phos Neutral) 250 mg Q8H PO 05/14/16 09:00 (Lopressor) 25 mg Q12HR PO 05/14/16 09:00 (Vasotec Inj) 1.25 mg Q6H PRN IV PUSH 05/14/16 17:15 (Prinivil) 20 mg DAILY PO 05/14/16 17:15 05/14/16 17:15 Urinary Catheter: No Vascular Central Line Catheter: No A/P Assessment and Plan NEURO: Left basal ganglia bleed with 4mm MLS Right hemiparesis Alcohol and cocaine abuse dependence -Neurosurgery (Dr. Venegas) is following the patient there are no plans for operative intervention at this time -MRI- focal basal ganglia hemorrhage ? Neurosorgery consulted -Target systolic blood pressure less than 140-150, keep Na >145, avoid hypoxia, hypercarbia -No indication for seizure prophylaxis -Watch for alcohol and drug withdrawal, supplement thiamine. Ativan when necessary for withdrawal and seizures CVS: Hypertensive emergency Lactic acidosis -DC Cardene infusion -Norvasc 10 mg daily. IV labetalol and hydralazine for blood pressure above 150 -2-D echo to evaluate LV function 05/14 blood pressure still elevated. Add metoprolol and lisinopril to antihypertensives regimen. Vasotec PRN for SBP >160 Resp: Tobacco abuse -DuoNeb every 6 hours and when necessary -Aggressive pulmonary toilet GI: Transaminitis Probable hepatitis C Diarrhea -Hepatitis profile has been sent, liver ultrasound shows fatty infiltration -Diet per speech recommendation (soft diet with thin liquids) -Hepatitis C antibody positive. The patient has history of hepatitis C. As per patient it has been treated in the past. Follow-up as an outpatient. Continue to monitor liver function tests. ALT and AST are stable. -check for c diff + place on contact isolation : Metabolic Acidosis Resolved after IV fluid administration. ID: Leukocytosis UTI -Was receiving Levaquin. Start cefepime 1 g IV every 12. Await urine culture- growing gram-negative rods ID pending - Continue Cefepime. Urine culture grew E coli. sensitive to cefepime. Patient may be discharged on cefuroxime. HEME: Thrombocytopenia-secondary to alcohol abuse -s/p platelet transfusion 05/10/16 with improvement in platelet count from 79 to 146, today 134 - 05/14 thrombocytopenia resolved. today 182. ENDO: Hyponatremia Hypokalemia Hypophosphatemia -Continue normal saline resuscitation -Electrolyte replacement per protocol Proph: -Bilateral SCDs, IV Protonix. Chemical DVT prophylaxis is contraindicated at this time, until cleared by neurosurgery Discharge Planning Continue to monitor in the medical floor. Patient will need PT at rehab once bp stable. Patient still not cleared medically Regan Moise MD May 14, 2016 19:11
[2016-05-14] MEDS: MORPHINE SULFATE 4 MG/ML INJ IV PUSH PRN (22:30)
[2016-05-14] MEDS: METOPROLOL TARTRATE 25 MG TAB PO SCH (22:32)
[2016-05-14] MEDS: SODIUM CHLORIDE 0.9% FLUSH 5 ML FLUSH IVF SCH (22:33)
[2016-05-15] VITALS (7 sets, daily range): BP systolic 120–146; BP diastolic 73–91; PULSE 87–102; RESP 18–20; TEMP 97.6–99.6; O2SAT 96–100
[2016-05-15] MEDS: NS + KCL 40 MEQ INJ 1,000 ML IV SCH ×4 (00:41→23:54)
[2016-05-15] MEDS: POTASSIUM PHOSPHATE/SODIUM PHOSPHATE 250 MG TAB PO SCH ×4 (00:41→23:54)
[2016-05-15 03:35] LABS: C. DIFF EPI 027 PRESUMPTIVE NEGATIVE (NEGATIVE); C. DIFF TOXIN PCR NEGATIVE (NEGATIVE)
[2016-05-15] MEDS: CHLORHEXIDINE GLUCONATE 2 % 1 PACK (2 CLOTHS) TOP SCH ×2 (04:00→22:24)
[2016-05-15] MEDS: METOPROLOL TARTRATE 25 MG TAB PO SCH ×2 (08:51→22:16)
[2016-05-15] MEDS: THIAMINE INJ 100 MG in SODIUM CHLORIDE 0.9% INJ 100 ML IV SCH (08:52)
[2016-05-15] MEDS: LISINOPRIL 20 MG TAB PO SCH (08:52)
[2016-05-15] MEDS: SODIUM CHLORIDE 0.9% FLUSH 5 ML FLUSH IVF SCH ×2 (08:53→21:00)
[2016-05-15] MEDS: CEFEPIME INJ 1,000 MG in SODIUM CHLORIDE 0.9% INJ 100 ML IV SCH ×2 (09:14→22:15)
--- NOTE | 2016-05-15 09:18 | HHI.PR ---
Subjective Remarks 55-year-old female with a history of alcohol abuse as well as hepatitis the presents the emergency department with altered mental status. Patient's neighbor went to her dress today and found her confused with feces all over her house. The patient was unaware of why she was in the emergency department. She did not have any complaints. She was only awake and alert 2 in the emergency department. She admitted to daily alcohol use and had no evidence of any trauma. In emergency department she was found to be hypertensive and started on Cardene CT scan of the brain showed evidence of a basal ganglia hemorrhage. 05/15/16-patient seen and examined; patient is alert and oriented x 2 however with some confusion. Tachy and afebrile. Taking PO well Objective Vitals Vital Signs Date Time Temp Pulse Resp B/P Pulse Ox O2 Delivery O2 Flow Rate FiO2 05/15/16 08:00 98.1 92 20 146/91 96 05/15/16 07:31 102 05/15/16 05:37 98.7 91 18 133/80 97 05/15/16 04:39 20 05/15/16 00:23 99.6 95 18 120/75 98 05/14/16 20:00 97.8 107 24 133/82 98 05/14/16 16:00 98.5 108 25 167/88 95 05/14/16 12:00 95.0 108 25 140/87 98 I/O 05/14/16 05/14/16 05/14/16 05/15/16 05/15/16 05/15/16 07:00 15:00 23:00 07:00 15:00 23:00 Intake Total 1313 ml 720 ml Output Total 825 ml 850 ml 1950 ml 400 ml Balance 488 ml -850 ml -1230 ml -400 ml Intake Oral 720 ml IV Total 1313 ml Output Urine Total 750 ml 850 ml 1950 ml 400 ml Stool Total 75 ml Result Diagram: 05/14/1618 05/14/16 0718 Imaging Last Impressions Chest X-Ray 05/12/16 0600 Signed Impressions: Service Date/Time: Thursday, May 12, 2016 05:16 - CONCLUSION: No acute disease. Nadir Hebert MD Liver Ultrasound 05/11/16 0000 Signed Impressions: Service Date/Time: Wednesday, May 11, 2016 08:30 - CONCLUSION: 1. Liver is slightly echogenic which can be seen with fatty infiltration/hepatocellular dysfunction. 2. No evidence for cholelithiasis. Geremias Smith MD Head Magnetic Resonance Angiography 05/11/16 0000 Signed Impressions: Service Date/Time: Wednesday, May 11, 2016 16:21 - CONCLUSION: No acute [place] vascular abnormalities. Jeremy Toledo MD Brain MRI 05/11/16 0000 Signed Impressions: Service Date/Time: Wednesday, May 11, 2016 16:21 - CONCLUSION: 1. Focal acute intraparenchymal hemorrhage in the left thalamus measuring 2.8 cm most likely representing a focal hemorrhagic infarction. 2. Bilateral cortical atrophy and mild chronic white matter changes. 3. No enhancing mass occupying lesions are demonstrated. Estrada Vigil MD Abdomen X-Ray 05/11/16 0000 Signed Impressions: Service Date/Time: Wednesday, May 11, 2016 16:03 - CONCLUSION: No evidence of obstruction. No MRI incompatible foreign body is identified. Estrada Vigil MD Head CT 05/10/16 1431 Signed Impressions: Service Date/Time: Tuesday, May 10, 2016 15:07 - CONCLUSION: 1. 2.3 cm left thalamic hypertensive type hemorrhage with approximately 4 mm of [id number] subfalcine shift. 2. Mild periventricular small vessel ischemic demyelination. 3. Results were called to Dr. Barboza at the time of this dictation. Nicholas Dove MD Objective Remarks GENERAL: Well-nourished, well-developed patient with left facial drop SKIN: Warm and dry. HEAD: Normocephalic. EYES: No scleral icterus. No injection or drainage. NECK: Supple, trachea midline. No JVD or lymphadenopathy. CARDIOVASCULAR: Regular rate and rhythm without murmurs, gallops, or rubs. RESPIRATORY: Breath sounds equal bilaterally. No accessory muscle use. GASTROINTESTINAL: Abdomen soft, non-tender, nondistended. dig shield in place MUSCULOSKELETAL: No cyanosis, or edema. rigth LE weakness Neuro: Normal strength L upper and lower ext, RUE 4/5 and RLE 3/5 strength BACK: Nontender without obvious deformity. No CVA tenderness. Procedures None A/P Assessment and Plan 55-year-old female with Left basal ganglia bleed with 4mm MLS Right hemiparesis Alcohol and cocaine abuse dependence -Neurosurgery (Dr. Venegas) is following the patient and there are no plans for operative intervention at this time -MRI- focal basal ganglia hemorrhage ? Neurosurgery consulted -Target systolic blood pressure less than 140-150, keep Na >145, avoid hypoxia, hypercarbia -No indication for seizure prophylaxis -Watch for alcohol and drug withdrawal, supplement thiamine. Ativan when necessary for withdrawal and seizures Hypertensive emergency Lactic acidosis -Norvasc 10 mg daily. IV labetalol and hydralazine for blood pressure above 150 -2-D echo to evaluate LV function metoprolol and lisinopril and continue other antihypertensive medications. Vasotec PRN for SBP >160 Tobacco abuse -DuoNeb every 6 hours and when necessary -Aggressive pulmonary toilet Transaminitis Probable hepatitis C Diarrhea -Hepatitis profile noted, liver ultrasound shows fatty infiltration -Hepatitis C antibody positive. The patient has history of hepatitis C. As per patient it has been treated in the past. Follow-up as an outpatient. Continue to monitor liver function tests. -check for c diff + place on contact isolation Metabolic Acidosis Resolved after IV fluid administration. Leukocytosis UTI -cefepime 1 g IV every 12. Await urine culture-growing gram-negative rods ID pending - Continue Cefepime. Urine culture grew E coli. sensitive to cefepime. Patient may be discharged on cefuroxime. Thrombocytopenia-secondary to alcohol abuse -s/p platelet transfusion 05/10/16 with improvement in platelet count - 05/14 thrombocytopenia resolved. Hyponatremia Hypokalemia Hypophosphatemia -Continue normal saline resuscitation -Electrolyte replacement per protocol -Bilateral SCDs, IV Protonix. Chemical DVT prophylaxis is contraindicated at this time, until cleared by neurosurgery Geremias Whittington MD May 15, 2016 09:17
[2016-05-15] MEDS: MORPHINE SULFATE 4 MG/ML INJ IV PUSH PRN (16:04)
[2016-05-15] MEDS: LORazepam 2 MG/ML VIAL IV PUSH PRN (22:22)
[2016-05-16] VITALS (7 sets, daily range): BP systolic 132–163; BP diastolic 79–97; PULSE 86–110; RESP 18–22; TEMP 96.7–99.7; O2SAT 94–100
[2016-05-16] MEDS: ENALAPRILAT 1.25 MG/ML VIAL IV PUSH PRN (00:21)
[2016-05-16] MEDS: MORPHINE SULFATE 4 MG/ML INJ IV PUSH PRN (06:10)
--- NOTE | 2016-05-16 08:51 | HHI.PR ---
Subjective Remarks 55-year-old female with a history of alcohol abuse as well as hepatitis the presents the emergency department with altered mental status. Patient's neighbor went to her dress today and found her confused with feces all over her house. The patient was unaware of why she was in the emergency department. She did not have any complaints. She was only awake and alert 2 in the emergency department. She admitted to daily alcohol use and had no evidence of any trauma. In emergency department she was found to be hypertensive and started on Cardene CT scan of the brain showed evidence of a basal ganglia hemorrhage. 05/15/16-patient seen and examined; patient is alert and oriented x 2 however with some confusion. Tachy and afebrile. Taking PO well 05/16/16-patient seen and examined; no acute event overnight. Afebrile Objective Vitals Vital Signs Date Time Temp Pulse Resp B/P Pulse Ox O2 Delivery O2 Flow Rate FiO2 05/16/16 08:00 98.6 101 18 157/96 97 05/16/16 07:30 94 05/16/16 06:31 20 05/16/16 04:00 97.6 106 20 163/86 100 05/16/16 00:00 96.7 97 20 162/97 97 05/15/16 20:00 97.6 100 20 142/83 96 05/15/16 16:00 98.7 96 20 137/80 100 05/15/16 12:00 98.7 87 20 128/73 99 I/O 05/15/16 05/15/16 05/15/16 05/16/16 05/16/16 05/16/16 07:00 15:00 23:00 07:00 15:00 23:00 Output Total 400 ml 3100 ml 1600 ml 1800 ml Balance -400 ml -3100 ml -1600 ml -1800 ml Output Urine Total 400 ml 3100 ml 1600 ml 1800 ml # Bowel Movements 2 Result Diagram: 05/14/16 0718 05/14/16 0718 Imaging Last Impressions Chest X-Ray 05/12/16 0600 Signed Impressions: Service Date/Time: Thursday, May 12, 2016 05:16 - CONCLUSION: No acute disease. Nadir Hebert MD Liver Ultrasound 05/11/16 0000 Signed Impressions: Service Date/Time: Wednesday, May 11, 2016 08:30 - CONCLUSION: 1. Liver is slightly echogenic which can be seen with fatty infiltration/hepatocellular dysfunction. 2. No evidence for cholelithiasis. Geremias Smith MD Head Magnetic Resonance Angiography 05/11/16 0000 Signed Impressions: Service Date/Time: Wednesday, May 11, 2016 16:21 - CONCLUSION: No acute [place] vascular abnormalities. Jeremy Toledo MD Brain MRI 05/11/16 0000 Signed Impressions: Service Date/Time: Wednesday, May 11, 2016 16:21 - CONCLUSION: 1. Focal acute intraparenchymal hemorrhage in the left thalamus measuring 2.8 cm most likely representing a focal hemorrhagic infarction. 2. Bilateral cortical atrophy and mild chronic white matter changes. 3. No enhancing mass occupying lesions are demonstrated. Estrada Vigil MD Abdomen X-Ray 05/11/16 0000 Signed Impressions: Service Date/Time: Wednesday, May 11, 2016 16:03 - CONCLUSION: No evidence of obstruction. No MRI incompatible foreign body is identified. Estarda Vigil MD Head CT 05/10/16 1431 Signed Impressions: Service Date/Time: Tuesday, May 10, 2016 15:07 - CONCLUSION: 1. 2.3 cm left thalamic hypertensive type hemorrhage with approximately 4 mm of [id number] subfalcine shift. 2. Mild periventricular small vessel ischemic demyelination. 3. Results were called to Dr. Barboza at the time of this dictation. Nicholas Dove MD Objective Remarks GENERAL: Well-nourished, well-developed patient with left facial drop SKIN: Warm and dry. HEAD: Normocephalic. EYES: No scleral icterus. No injection or drainage. NECK: Supple, trachea midline. No JVD or lymphadenopathy. CARDIOVASCULAR: Regular rate and rhythm without murmurs, gallops, or rubs. RESPIRATORY: Breath sounds equal bilaterally. No accessory muscle use. GASTROINTESTINAL: Abdomen soft, non-tender, nondistended. dig shield in place MUSCULOSKELETAL: No cyanosis, or edema. rigth LE weakness Neuro: Normal strength L upper and lower ext, RUE 4/5 and RLE 3/5 strength BACK: Nontender without obvious deformity. No CVA tenderness. Procedures None A/P Assessment and Plan 55-year-old female with Left basal ganglia bleed with 4mm MLS Right hemiparesis Alcohol and cocaine abuse dependence -Neurosurgery (Dr. Venegas) is following the patient and there are no plans for operative intervention at this time -MRI- focal basal ganglia hemorrhage ? Neurosurgery consulted -Target systolic blood pressure less than 140-150, keep Na >145, avoid hypoxia, hypercarbia -No indication for seizure prophylaxis -Watch for alcohol and drug withdrawal, supplement thiamine. Ativan when necessary for withdrawal and seizures Hypertensive emergency-resolved Lactic acidosis Hypertension-labile BP -Norvasc 10 mg daily. IV labetalol and hydralazine for blood pressure above 150 -2-D echo to evaluate LV function Increase metoprolol to 50 mg by mouth every 12 and continue lisinopril as well as other antihypertensive medications. Vasotec PRN for SBP >160 Tobacco abuse -DuoNeb every 6 hours and when necessary -Aggressive pulmonary toilet Transaminitis Probable hepatitis C-C. difficile PCR negative Diarrhea -Hepatitis profile noted, liver ultrasound shows fatty infiltration -Hepatitis C antibody positive. The patient has history of hepatitis C. As per patient it has been treated in the past. Follow-up as an outpatient. Continue to monitor liver function tests. -Treatment with antidiarrhea agent Metabolic Acidosis-resolved Resolved after IV fluid administration. Leukocytosis UTI -cefepime 1 g IV every 12. Await urine culture-growing gram-negative rods ID pending - Continue Cefepime. Urine culture grew E coli. sensitive to cefepime. Patient may be discharged on cefuroxime. Thrombocytopenia-secondary to alcohol abuse -s/p platelet transfusion 05/10/16 with improvement in platelet count - 05/14 thrombocytopenia resolved. Hyponatremia Hypokalemia Hypophosphatemia -Continue normal saline resuscitation -Electrolyte replacement per protocol -Bilateral SCDs, IV Protonix. Chemical DVT prophylaxis is contraindicated at this time, until cleared by neurosurgery Geremias Whittington MD May 16, 2016 08:51
[2016-05-16] MEDS: SODIUM CHLORIDE 0.9% FLUSH 5 ML FLUSH IVF SCH ×2 (09:00→21:00)
[2016-05-16] MEDS: NS + KCL 40 MEQ INJ 1,000 ML IV SCH ×2 (09:54→17:29)
[2016-05-16] MEDS: POTASSIUM PHOSPHATE/SODIUM PHOSPHATE 250 MG TAB PO SCH ×2 (09:56→17:29)
[2016-05-16] MEDS: LISINOPRIL 20 MG TAB PO SCH (09:56)
[2016-05-16] MEDS: METOPROLOL TARTRATE 25 MG TAB PO SCH (09:56)
[2016-05-16] MEDS: CEFEPIME INJ 1,000 MG in SODIUM CHLORIDE 0.9% INJ 100 ML IV SCH (09:57)
[2016-05-16] MEDS: THIAMINE INJ 100 MG in SODIUM CHLORIDE 0.9% INJ 100 ML IV SCH (09:57)
[2016-05-16] MEDS: LORazepam 2 MG/ML VIAL IV PUSH PRN (12:52)
[2016-05-17] VITALS (8 sets, daily range): BP systolic 118–165; BP diastolic 77–88; PULSE 77–103; RESP 18–20; TEMP 97–99.4; O2SAT 94–98
[2016-05-17] MEDS: METOPROLOL TARTRATE 25 MG TAB PO SCH ×3 (00:22→21:59)
[2016-05-17] MEDS: POTASSIUM PHOSPHATE/SODIUM PHOSPHATE 250 MG TAB PO SCH ×3 (00:22→17:45)
[2016-05-17] MEDS: CEFEPIME INJ 1,000 MG in SODIUM CHLORIDE 0.9% INJ 100 ML IV SCH ×3 (00:23→21:59)
[2016-05-17] MEDS: MORPHINE SULFATE 4 MG/ML INJ IV PUSH PRN ×2 (00:24→13:43)
[2016-05-17] MEDS: CHLORHEXIDINE GLUCONATE 2 % 1 PACK (2 CLOTHS) TOP SCH (00:43)
[2016-05-17] MEDS: NS + KCL 40 MEQ INJ 1,000 ML IV SCH ×4 (00:43→17:15)
--- NOTE | 2016-05-17 08:41 | HHI.PR ---
Subjective Remarks 55-year-old female with a history of alcohol abuse as well as hepatitis the presents the emergency department with altered mental status. Patient's neighbor went to her dress today and found her confused with feces all over her house. The patient was unaware of why she was in the emergency department. She did not have any complaints. She was only awake and alert 2 in the emergency department. She admitted to daily alcohol use and had no evidence of any trauma. In emergency department she was found to be hypertensive and started on Cardene CT scan of the brain showed evidence of a basal ganglia hemorrhage. 05/15/16-patient seen and examined; patient is alert and oriented x 2 however with some confusion. Tachy and afebrile. Taking PO well 05/16/16-patient seen and examined; no acute event overnight. Afebrile 05/17/16-patient seen and examined;stable and no acute event overnight Objective Vitals Vital Signs Date Time Temp Pulse Resp B/P Pulse Ox O2 Delivery O2 Flow Rate FiO2 05/17/16 04:00 98.5 77 20 118/77 98 05/17/16 01:16 20 05/17/16 00:00 99.1 98 20 136/81 94 05/16/16 20:00 99.7 110 22 132/79 94 05/16/16 16:00 98.4 110 18 142/88 97 05/16/16 12:00 98.0 86 18 148/89 100 I/O 05/16/16 05/16/16 05/16/16 05/17/16 05/17/16 05/17/16 07:00 15:00 23:00 07:00 15:00 23:00 Intake Total 120 ml 60 ml Output Total 1800 ml 600 ml 400 ml Balance -1800 ml -480 ml -340 ml Intake Oral 120 ml 60 ml Output Urine Total 1800 ml 600 ml 400 ml # Bowel Movements 0 0 Result Diagram: 05/14/1671705/14/16717 Objective Remarks GENERAL: Well-nourished, well-developed patient with left facial drop SKIN: Warm and dry. HEAD: Normocephalic. EYES: No scleral icterus. No injection or drainage. NECK: Supple, trachea midline. No JVD or lymphadenopathy. CARDIOVASCULAR: Regular rate and rhythm without murmurs, gallops, or rubs. RESPIRATORY: Breath sounds equal bilaterally. No accessory muscle use. GASTROINTESTINAL: Abdomen soft, non-tender, nondistended. dig shield in place MUSCULOSKELETAL: No cyanosis, or edema. rigth LE weakness Neuro: Normal strength L upper and lower ext, RUE 4/5 and RLE 3/5 strength BACK: Nontender without obvious deformity. No CVA tenderness. Procedures None A/P Assessment and Plan 55-year-old female with Left basal ganglia bleed with 4mm MLS Right hemiparesis Alcohol and cocaine abuse dependence -Neurosurgery (Dr. Venegas) is following the patient and there are no plans for operative intervention at this time -MRI- focal basal ganglia hemorrhage ? Neurosurgery consulted -Target systolic blood pressure less than 140-150, keep Na >145, avoid hypoxia, hypercarbia -No indication for seizure prophylaxis -Watch for alcohol and drug withdrawal, supplement thiamine. Ativan when necessary for withdrawal and seizures Hypertensive emergency-resolved Lactic acidosis Hypertension-labile BP -Norvasc 10 mg daily. IV labetalol and hydralazine for blood pressure above 150 -2-D echo to evaluate LV function metoprolol 50 mg by mouth every 12 and lisinopril as well as other antihypertensive medications. Vasotec PRN for SBP >160 Tobacco abuse -DuoNeb every 6 hours and when necessary -Aggressive pulmonary toilet Transaminitis Probable hepatitis C-C. difficile PCR negative Diarrhea -Hepatitis profile noted, liver ultrasound shows fatty infiltration -Hepatitis C antibody positive. The patient has history of hepatitis C. As per patient it has been treated in the past. Follow-up as an outpatient. Continue to monitor liver function tests. -Treatment with antidiarrhea agent Metabolic Acidosis-resolved Resolved after IV fluid administration. Leukocytosis UTI -cefepime 1 g IV every 12. Await urine culture-growing gram-negative rods ID pending - Continue Cefepime. Urine culture grew E coli. sensitive to cefepime. Patient may be discharged on cefuroxime. Thrombocytopenia-secondary to alcohol abuse -s/p platelet transfusion 05/10/16 with improvement in platelet count - 05/14 thrombocytopenia resolved. Hyponatremia Hypokalemia Hypophosphatemia -Continue normal saline resuscitation -Electrolyte replacement per protocol -Bilateral SCDs, IV Protonix. Chemical DVT prophylaxis is contraindicated at this time, until cleared by neurosurgery Geremias Whittington MD May 17, 2016 08:41
[2016-05-17] MEDS: THIAMINE INJ 100 MG in SODIUM CHLORIDE 0.9% INJ 100 ML IV SCH (09:45)
[2016-05-17] MEDS: LISINOPRIL 20 MG TAB PO SCH (09:47)
[2016-05-17] MEDS: SODIUM CHLORIDE 0.9% FLUSH 5 ML FLUSH IVF SCH ×2 (09:47→21:00)
[2016-05-17] MEDS: LORazepam 2 MG/ML VIAL IV PUSH PRN (17:45)
[2016-05-18] MEDS: NS + KCL 40 MEQ INJ 1,000 ML IV SCH ×2 (01:15→07:29)
[2016-05-18] MEDS: POTASSIUM PHOSPHATE/SODIUM PHOSPHATE 250 MG TAB PO SCH ×4 (01:49→23:28)
[2016-05-18] MEDS: MORPHINE SULFATE 4 MG/ML INJ IV PUSH PRN ×2 (01:50→23:28)
[2016-05-18 04:00] VITALS: BP 131/72; PULSE 70; RESP 20; TEMP 97.4; O2SAT 97
[2016-05-18] MEDS: CHLORHEXIDINE GLUCONATE 2 % 1 PACK (2 CLOTHS) TOP SCH (04:00)
[2016-05-18] MEDS: LORazepam 2 MG/ML VIAL IV PUSH PRN ×2 (07:31→23:28)
--- NOTE | 2016-05-18 08:17 | HHI.PR ---
Subjective Remarks 55-year-old female with a history of alcohol abuse as well as hepatitis the presents the emergency department with altered mental status. Patient's neighbor went to her dress today and found her confused with feces all over her house. The patient was unaware of why she was in the emergency department. She did not have any complaints. She was only awake and alert 2 in the emergency department. She admitted to daily alcohol use and had no evidence of any trauma. In emergency department she was found to be hypertensive and started on Cardene CT scan of the brain showed evidence of a basal ganglia hemorrhage. 05/15/16-patient seen and examined; patient is alert and oriented x 2 however with some confusion. Tachy and afebrile. Taking PO well 05/16/16-patient seen and examined; no acute event overnight. Afebrile 05/17/16-patient seen and examined;stable and no acute event overnight 05/18/16-patient seen and examined; per nurse report she is being agitated and screaming likely secondary to back skin excoriation however patient refused to stay on his side. Afebrile Objective Vitals Vital Signs Date Time Temp Pulse Resp B/P Pulse Ox O2 Delivery O2 Flow Rate FiO2 05/18/16 04:00 97.4 70 20 131/72 97 05/17/16 20:00 97.0 103 18 137/82 95 05/17/16 19:00 102 05/17/16 16:00 98.5 98 18 159/88 96 05/17/16 12:00 98.9 84 18 148/80 98 I/O 05/17/16 05/17/16 05/17/16 05/18/16 05/18/16 05/18/16 07:00 15:00 23:00 07:00 15:00 23:00 Intake Total 60 ml 240 ml 985 ml Output Total 400 ml 2300 ml 1750 ml Balance -340 ml -2060 ml 985 ml -1750 ml Intake Oral 60 ml 240 ml IV Total 985 ml Output Urine Total 400 ml 2300 ml 850 ml Stool Total 900 ml # Bowel Movements 0 Result Diagram: 05/14/1618 05/14/16 0718 Imaging Last Impressions Chest X-Ray 05/12/16 0600 Signed Impressions: Service Date/Time: Thursday, May 12, 2016 05:16 - CONCLUSION: No acute disease. Nadir Hebert MD Liver Ultrasound 05/11/16 0000 Signed Impressions: Service Date/Time: Wednesday, May 11, 2016 08:30 - CONCLUSION: 1. Liver is slightly echogenic which can be seen with fatty infiltration/hepatocellular dysfunction. 2. No evidence for cholelithiasis. Geremias Smith MD Head Magnetic Resonance Angiography 05/11/16 0000 Signed Impressions: Service Date/Time: Wednesday, May 11, 2016 16:21 - CONCLUSION: No acute [place] vascular abnormalities. Jeremy Toledo MD Brain MRI 05/11/16 0000 Signed Impressions: Service Date/Time: Wednesday, May 11, 2016 16:21 - CONCLUSION: 1. Focal acute intraparenchymal hemorrhage in the left thalamus measuring 2.8 cm most likely representing a focal hemorrhagic infarction. 2. Bilateral cortical atrophy and mild chronic white matter changes. 3. No enhancing mass occupying lesions are demonstrated. Estrada Vigil MD Abdomen X-Ray 05/11/16 0000 Signed Impressions: Service Date/Time: Wednesday, May 11, 2016 16:03 - CONCLUSION: No evidence of obstruction. No MRI incompatible foreign body is identified. Estrada Vigil MD Head CT 05/10/16 1431 Signed Impressions: Service Date/Time: Tuesday, May 10, 2016 15:07 - CONCLUSION: 1. 2.3 cm left thalamic hypertensive type hemorrhage with approximately 4 mm of [id number] subfalcine shift. 2. Mild periventricular small vessel ischemic demyelination. 3. Results were called to Dr. Barboza at the time of this dictation. Nicholas Dove MD Objective Remarks GENERAL: Well-nourished, well-developed patient with left facial drop SKIN: Warm and dry. HEAD: Normocephalic. EYES: No scleral icterus. No injection or drainage. NECK: Supple, trachea midline. No JVD or lymphadenopathy. CARDIOVASCULAR: Regular rate and rhythm without murmurs, gallops, or rubs. RESPIRATORY: Breath sounds equal bilaterally. No accessory muscle use. GASTROINTESTINAL: Abdomen soft, non-tender, nondistended. dig shield in place MUSCULOSKELETAL: No cyanosis, or edema. rigth LE weakness Neuro: Normal strength L upper and lower ext, RUE 4/5 and RLE 3/5 strength BACK: Nontender without obvious deformity. No CVA tenderness. Procedures None A/P Problem List: (1) Basal ganglia hemorrhage Status: Acute (2) Hemiparesis affecting right side as late effect of cerebrovascular accident (CVA) Status: Acute (3) Hypertensive emergency Status: Resolved (4) Metabolic acidosis Status: Resolved (5) UTI (urinary tract infection) Status: Resolved Assessment and Plan 55-year-old female with Left basal ganglia bleed with 4mm MLS Right hemiparesis Alcohol and cocaine abuse dependence -Neurosurgery (Dr. Venegas) is following the patient and there are no plans for operative intervention at this time -MRI- focal basal ganglia hemorrhage ? Neurosurgery consulted -Target systolic blood pressure less than 140-150, keep Na >145, avoid hypoxia, hypercarbia -No indication for seizure prophylaxis -Watch for alcohol and drug withdrawal, supplement thiamine. Ativan when necessary for withdrawal and seizures Hypertensive emergency-resolved Lactic acidosis Hypertension- -Norvasc 10 mg daily. IV labetalol and hydralazine for blood pressure above 150 -2-D echo to evaluate LV function metoprolol 50 mg by mouth every 12 and lisinopril as well as other antihypertensive medications. Vasotec PRN for SBP >160 Tobacco abuse -DuoNeb every 6 hours and when necessary -Aggressive pulmonary toilet Transaminitis Probable hepatitis C-C. difficile PCR negative Diarrhea -Hepatitis profile noted, liver ultrasound shows fatty infiltration -Hepatitis C antibody positive. The patient has history of hepatitis C. As per patient it has been treated in the past. Follow-up as an outpatient. Continue to monitor liver function tests. -Treatment with antidiarrhea agent Metabolic Acidosis-resolved Resolved after IV fluid administration. Leukocytosis UTI - Continue Cefepime. Urine culture grew E coli. sensitive to cefepime. Patient may be discharged on cefuroxime. Thrombocytopenia-secondary to alcohol abuse -s/p platelet transfusion 05/10/16 with improvement in platelet count - 05/14 thrombocytopenia resolved. Hyponatremia Hypokalemia Hypophosphatemia -Resolved with treatment with normal saline resuscitation, electrolyte replacement protocol -Bilateral SCDs, IV Protonix. Chemical DVT prophylaxis is contraindicated at this time, until cleared by neurosurgery Geremias Whittington MD May 18, 2016 08:17 Geremias Whittington MD May 18, 2016 08:17
[2016-05-18] MEDS: THIAMINE INJ 100 MG in SODIUM CHLORIDE 0.9% INJ 100 ML IV SCH (08:22)
[2016-05-18] MEDS: LISINOPRIL 20 MG TAB PO SCH (08:22)
[2016-05-18] MEDS: METOPROLOL TARTRATE 25 MG TAB PO SCH ×2 (08:22→22:28)
[2016-05-18] MEDS: SODIUM CHLORIDE 0.9% FLUSH 5 ML FLUSH IVF SCH ×2 (08:23→21:00)
[2016-05-18 08:34] VITALS: BP 183/107; PULSE 109; RESP 20; TEMP 97.4; O2SAT 99
[2016-05-18] MEDS: CEFEPIME INJ 1,000 MG in SODIUM CHLORIDE 0.9% INJ 100 ML IV SCH ×2 (09:47→22:29)
[2016-05-18 12:35] VITALS: BP 146/76; PULSE 97; RESP 20; TEMP 99.7; O2SAT 98
[2016-05-18 16:48] VITALS: BP 141/80; PULSE 102; RESP 20; TEMP 96.8; O2SAT 98
[2016-05-18 19:00] VITALS: PULSE 112
[2016-05-18 20:36] VITALS: BP 136/77; PULSE 103; RESP 20; TEMP 97.6; O2SAT 98
[2016-05-19] VITALS (7 sets, daily range): BP systolic 127–186; BP diastolic 72–86; PULSE 87–104; RESP 16–20; TEMP 96.3–97.9; O2SAT 95–100
[2016-05-19] MEDS: CHLORHEXIDINE GLUCONATE 2 % 1 PACK (2 CLOTHS) TOP SCH (04:00)
[2016-05-19] MEDS: CEFEPIME INJ 1,000 MG in SODIUM CHLORIDE 0.9% INJ 100 ML IV SCH ×2 (09:35→22:04)
[2016-05-19] MEDS: METOPROLOL TARTRATE 25 MG TAB PO SCH ×2 (09:36→20:44)
[2016-05-19] MEDS: POTASSIUM PHOSPHATE/SODIUM PHOSPHATE 250 MG TAB PO SCH ×3 (09:36→23:57)
[2016-05-19] MEDS: LISINOPRIL 20 MG TAB PO SCH (09:36)
[2016-05-19] MEDS: THIAMINE INJ 100 MG in SODIUM CHLORIDE 0.9% INJ 100 ML IV SCH (09:36)
--- NOTE | 2016-05-19 19:29 | HHI.PR ---
Subjective Remarks Patient remains confused, disoriented. Denies pain. Objective Vitals Vital Signs Date Time Temp Pulse Resp B/P Pulse Ox O2 Delivery O2 Flow Rate FiO2 05/19/16 16:30 96.3 97 16 127/82 96 05/19/16 12:42 96.3 87 16 139/80 95 05/19/16 08:45 96.5 100 16 163/81 100 05/19/16 07:00 87 05/19/16 04:49 97.9 89 20 186/86 99 05/19/16 00:06 97.4 98 20 140/72 98 05/18/16 20:36 97.6 103 20 136/77 98 I/O 05/18/16 05/18/16 05/18/16 05/19/16 05/19/16 05/19/16 06:59 14:59 22:59 06:59 14:59 22:59 Intake Total 2335 ml 240 ml 460 ml Output Total 1750 ml 1650 ml 600 ml 600 ml 1000 ml Balance -1750 ml 685 ml -360 ml -600 ml -540 ml Intake Oral 480 ml 240 ml 460 ml IV Total 1855 ml Output Urine Total 850 ml 1650 ml 600 ml 600 ml 1000 ml Stool Total 900 ml # Bowel Movements 1 1 1 Objective Remarks GENERAL: Well-nourished, well-developed somewhat disshevelled patient. SKIN: Warm and dry. HEAD: Normocephalic. EYES: No scleral icterus. No injection or drainage. NECK: Supple, trachea midline. No JVD or lymphadenopathy. CARDIOVASCULAR: Regular rate and rhythm without murmurs, gallops, or rubs. RESPIRATORY: Breath sounds equal bilaterally. No accessory muscle use. GASTROINTESTINAL: Abdomen soft, non-tender, nondistended. EXTREMITIES: No cyanosis, or edema. NEUROLOGICAL: Awake, alert, and oriented to self only. Procedures None A/P Problem List: (1) Basal ganglia hemorrhage Status: Acute (2) Hemiparesis affecting right side as late effect of cerebrovascular accident (CVA) Status: Acute (3) Hypertensive emergency Status: Resolved (4) Metabolic acidosis Status: Resolved (5) UTI (urinary tract infection) Status: Resolved Assessment and Plan Left basal ganglia bleed with 4mm MLS Right hemiparesis Alcohol and cocaine abuse dependence -Neurosurgery (Dr. Venegas) is following the patient and there are no plans for operative intervention at this time -MRI- focal basal ganglia hemorrhage ? Neurosurgery ff -Target systolic blood pressure less than 140-150, keep Na >145, avoid hypoxia, hypercarbia -No indication for seizure prophylaxis -Watch for alcohol and drug withdrawal, supplement thiamine. Ativan when necessary for withdrawal and seizures Hypertensive emergency-resolved Lactic acidosis Hypertension- -Norvasc 10 mg daily. IV labetalol and hydralazine for blood pressure above 150 -2-D echo to evaluate LV function metoprolol 50 mg by mouth every 12 and lisinopril as well as other antihypertensive medications. Vasotec PRN for SBP >160 Tobacco abuse -DuoNeb every 6 hours and when necessary -Aggressive pulmonary toilet Transaminitis Probable hepatitis C-C. difficile PCR negative Diarrhea -Hepatitis profile noted, liver ultrasound shows fatty infiltration -Hepatitis C antibody positive. The patient has history of hepatitis C. As per patient it has been treated in the past. Follow-up as an outpatient. Continue to monitor liver function tests. -Treatment with antidiarrhea agent Metabolic Acidosis-resolved Resolved after IV fluid administration. Leukocytosis UTI - Continue Cefepime. Urine culture grew E coli. sensitive to cefepime. Patient may be discharged on cefuroxime. Thrombocytopenia-secondary to alcohol abuse -s/p platelet transfusion 05/10/16 with improvement in platelet count - 05/14 thrombocytopenia resolved. Hyponatremia Hypokalemia Hypophosphatemia -Resolved with treatment with normal saline resuscitation, electrolyte replacement protocol -Bilateral SCDs, IV Protonix. Chemical DVT prophylaxis is contraindicated at this time, until cleared by neurosurgery DC Sarina Rojas MD May 19, 2016 19:29
[2016-05-19] MEDS: SODIUM CHLORIDE 0.9% FLUSH 5 ML FLUSH IVF SCH (20:45)
[2016-05-19] MEDS: ACETAMINOPHEN 325 MG TAB PO PRN (23:57)
[2016-05-19] MEDS: LORazepam 2 MG/ML VIAL IV PUSH PRN (23:57)
[2016-05-20] VITALS (7 sets, daily range): BP systolic 129–177; BP diastolic 66–89; PULSE 21–98; RESP 18–21; TEMP 97.4–98.6; O2SAT 92–98
[2016-05-20] MEDS: CHLORHEXIDINE GLUCONATE 2 % 1 PACK (2 CLOTHS) TOP SCH ×2 (04:00→21:32)
[2016-05-20] MEDS: LISINOPRIL 20 MG TAB PO SCH (08:40)
[2016-05-20] MEDS: POTASSIUM PHOSPHATE/SODIUM PHOSPHATE 250 MG TAB PO SCH ×2 (08:40→17:17)
[2016-05-20] MEDS: SODIUM CHLORIDE 0.9% FLUSH 5 ML FLUSH IVF SCH ×2 (08:40→21:29)
[2016-05-20] MEDS: METOPROLOL TARTRATE 25 MG TAB PO SCH ×2 (08:41→21:29)
[2016-05-20] MEDS: THIAMINE INJ 100 MG in SODIUM CHLORIDE 0.9% INJ 100 ML IV SCH (08:41)
[2016-05-20] MEDS: ACETAMINOPHEN 325 MG TAB PO PRN ×2 (08:47→17:18)
[2016-05-20] MEDS: CEFEPIME INJ 1,000 MG in SODIUM CHLORIDE 0.9% INJ 100 ML IV SCH ×2 (10:31→21:29)
--- NOTE | 2016-05-20 18:52 | HHI.PR ---
Subjective Remarks Pt is more alert and talkative today. Denies pain. Objective Vitals Vital Signs Date Time Temp Pulse Resp B/P Pulse Ox O2 Delivery O2 Flow Rate FiO2 05/20/16 16:00 97.8 21 19 156/66 96 05/20/16 12:43 91 05/20/16 12:00 98.1 83 20 129/67 95 05/20/16 08:00 98.6 98 21 160/89 92 05/20/16 04:21 98.3 86 18 154/85 96 05/20/16 00:19 98.1 94 20 177/84 98 05/19/16 20:24 97.9 104 20 169/81 100 I/O 05/19/16 05/19/16 05/19/16 05/20/16 05/20/16 05/20/16 07:00 15:00 23:00 07:00 15:00 23:00 Intake Total 460 ml 360 ml 480 ml Output Total 600 ml 1000 ml 1200 ml Balance -600 ml -540 ml -1200 ml 360 ml 480 ml Intake Oral 460 ml 360 ml 480 ml Output Urine Total 600 ml 1000 ml 1200 ml # Voids 1 3 # Bowel Movements 1 3 Objective Remarks GENERAL: Well-nourished, well-developed somewhat disshevelled patient. SKIN: Warm and dry. HEAD: Normocephalic. EYES: No scleral icterus. No injection or drainage. NECK: Supple, trachea midline. No JVD or lymphadenopathy. CARDIOVASCULAR: Regular rate and rhythm without murmurs, gallops, or rubs. RESPIRATORY: Breath sounds equal bilaterally. No accessory muscle use. GASTROINTESTINAL: Abdomen soft, non-tender, nondistended. EXTREMITIES: No cyanosis, or edema. NEUROLOGICAL: Awake, alert, and oriented to self and place not date. Right arm and right leg paresis. Procedures None A/P Problem List: (1) Basal ganglia hemorrhage Status: Acute (2) Hemiparesis affecting right side as late effect of cerebrovascular accident (CVA) Status: Acute (3) Hypertensive emergency Status: Resolved (4) Metabolic acidosis Status: Resolved (5) UTI (urinary tract infection) Status: Resolved Assessment and Plan -Left basal ganglia bleed with 4mm MLS with Right hemiparesis-NARGIS Venegas. no surgery needed. -Alcohol and cocaine abuse dependence - Hypertensive emergency-resolved -Lactic acidosis-resolved -Hypertension-cont -Norvasc 10 mg daily. metoprolol 50 mg by mouth every 12 and lisinopril as well. Vasotec PRN for SBP >160 -Tobacco abuse -Transaminitis and chronic HCVliver ultrasound shows fatty infiltration -Diarrhea-c dif was neg. -Metabolic Acidosis-resolved -UTI, e. coli-treated. -Thrombocytopenia-secondary to alcohol abuse-s/p platelet transfusion 05/10/16 with improvement in platelet count - 05/14 thrombocytopenia resolved. -Hyponatremia -Hypokalemia -Hypophosphatemia -Bilateral SCDs, IV Protonix. Chemical DVT prophylaxis is contraindicated at this time, until cleared by neurosurgery Discharge Planning Will need placement due to right sided paresis. Sarina Lee MD May 20, 2016 18:52
[2016-05-21] VITALS (8 sets, daily range): BP systolic 135–171; BP diastolic 68–90; PULSE 82–99; RESP 16–20; TEMP 96.6–98.2; O2SAT 96–100
[2016-05-21] MEDS: POTASSIUM PHOSPHATE/SODIUM PHOSPHATE 250 MG TAB PO SCH ×4 (01:00→23:28)
[2016-05-21] MEDS: METOPROLOL TARTRATE 25 MG TAB PO SCH ×2 (10:31→23:28)
[2016-05-21] MEDS: LISINOPRIL 20 MG TAB PO SCH (10:31)
[2016-05-21] MEDS: SODIUM CHLORIDE 0.9% FLUSH 5 ML FLUSH IVF SCH ×2 (10:31→23:29)
[2016-05-21] MEDS: THIAMINE INJ 100 MG in SODIUM CHLORIDE 0.9% INJ 100 ML IV SCH (10:32)
[2016-05-21] MEDS: CEFEPIME INJ 1,000 MG in SODIUM CHLORIDE 0.9% INJ 100 ML IV SCH (11:30)
[2016-05-21] MEDS: ACETAMINOPHEN 325 MG TAB PO PRN (11:33)
--- NOTE | 2016-05-21 16:40 | HHI.PR ---
Subjective Remarks Pt c/o pain in right arm, burning. Objective Vitals Vital Signs Date Time Temp Pulse Resp B/P Pulse Ox O2 Delivery O2 Flow Rate FiO2 05/21/16 16:00 96.6 90 18 135/68 96 05/21/16 12:00 97.2 82 18 145/81 98 05/21/16 09:28 94 05/21/16 08:53 96 05/21/16 08:00 96.8 97 16 136/86 99 05/21/16 04:17 97.2 99 20 171/90 100 05/21/16 00:32 98.2 91 19 159/86 100 05/20/16 21:04 97.4 97 19 137/83 97 I/O 05/20/16 05/20/16 05/20/16 05/21/16 05/21/16 05/21/16 06:59 14:59 22:59 06:59 14:59 22:59 Intake Total 360 ml 480 ml 1200 ml Balance 360 ml 480 ml 1200 ml Intake Oral 360 ml 480 ml 1200 ml # Voids 1 3 1 3 # Bowel Movements 3 2 Objective Remarks GENERAL: Well-nourished, well-developed somewhat disshevelled patient. SKIN: Warm and dry. HEAD: Normocephalic. EYES: No scleral icterus. No injection or drainage. NECK: Supple, trachea midline. No JVD or lymphadenopathy. CARDIOVASCULAR: Regular rate and rhythm without murmurs, gallops, or rubs. RESPIRATORY: Breath sounds equal bilaterally. No accessory muscle use. GASTROINTESTINAL: Abdomen soft, non-tender, nondistended. EXTREMITIES: No cyanosis, or edema. NEUROLOGICAL: Awake, alert, and oriented to self only. Procedures None A/P Problem List: (1) Basal ganglia hemorrhage Status: Acute (2) Hemiparesis affecting right side as late effect of cerebrovascular accident (CVA) Status: Acute (3) Hypertensive emergency Status: Resolved (4) Metabolic acidosis Status: Resolved (5) UTI (urinary tract infection) Status: Resolved Assessment and Plan -Left basal ganglia bleed with 4mm MLS with Right hemiparesis-NARGIS Venegas. no surgery needed. -Alcohol and cocaine abuse dependence - Hypertensive emergency-resolved -Lactic acidosis-resolved -Hypertension-cont -Norvasc 10 mg daily. metoprolol 50 mg by mouth every 12 and lisinopril as well. Vasotec PRN for SBP >160 -Tobacco abuse -Transaminitis and chronic HCV - liver ultrasound showed fatty infiltration -Diarrhea-c dif was neg. -Metabolic Acidosis-resolved -UTI, e. coli-treated. -Thrombocytopenia-secondary to alcohol abuse-s/p platelet transfusion 05/10/16 with improvement in platelet count - 05/14 thrombocytopenia resolved. -Hyponatremia -Hypokalemia -Hypophosphatemia -Start neurontin for right arm neuropathic pain -Bilateral SCDs, IV Protonix. Chemical DVT prophylaxis is contraindicated at this time, until cleared by neurosurgery Discharge Planning Will need placement due to right sided paresis. Discussed with Sarina Zhao MD May 21, 2016 16:40
[2016-05-21] MEDS: GABAPENTIN 100 MG CAP PO SCH (16:49)
[2016-05-21] MEDS: CHLORHEXIDINE GLUCONATE 2 % 1 PACK (2 CLOTHS) TOP SCH (23:28)
[2016-05-21] MEDS: LORazepam 2 MG/ML VIAL IV PUSH PRN (23:46)
[2016-05-22] VITALS (7 sets, daily range): BP systolic 119–164; BP diastolic 67–94; PULSE 84–102; RESP 16–19; TEMP 95.7–99.2; O2SAT 94–100
[2016-05-22] MEDS: LISINOPRIL 20 MG TAB PO SCH (08:45)
[2016-05-22] MEDS: GABAPENTIN 100 MG CAP PO SCH ×3 (08:45→16:55)
[2016-05-22] MEDS: METOPROLOL TARTRATE 25 MG TAB PO SCH ×2 (08:45→21:28)
[2016-05-22] MEDS: SODIUM CHLORIDE 0.9% FLUSH 5 ML FLUSH IVF SCH ×2 (08:45→21:28)
[2016-05-22] MEDS: POTASSIUM PHOSPHATE/SODIUM PHOSPHATE 250 MG TAB PO SCH ×2 (08:45→16:55)
[2016-05-22] MEDS: THIAMINE INJ 100 MG in SODIUM CHLORIDE 0.9% INJ 100 ML IV SCH (08:45)
--- NOTE | 2016-05-22 11:08 | HHI.PR ---
Subjective Remarks Sleeping. Objective Vitals Vital Signs Date Time Temp Pulse Resp B/P Pulse Ox O2 Delivery O2 Flow Rate FiO2 05/22/16 08:00 99.2 95 16 132/94 100 05/22/16 04:15 98.3 90 19 140/76 97 05/22/16 00:18 95.7 94 19 164/84 95 05/21/16 20:21 98.0 95 20 139/84 98 05/21/16 16:00 96.6 90 18 135/68 96 05/21/16 12:00 97.2 82 18 145/81 98 I/O 05/21/16 05/21/16 05/21/16 05/22/16 05/22/16 05/22/16 07:00 15:00 23:00 07:00 15:00 23:00 Intake Total 1200 ml 420 ml Balance 1200 ml 420 ml Intake Oral 1200 ml 420 ml # Voids 1 3 # Bowel Movements 2 Objective Remarks GENERAL: Well-nourished, well-developed somewhat disshevelled patient. SKIN: Warm and dry. HEAD: Normocephalic. EYES: No scleral icterus. No injection or drainage. NECK: Supple, trachea midline. No JVD or lymphadenopathy. CARDIOVASCULAR: Regular rate and rhythm without murmurs, gallops, or rubs. RESPIRATORY: Breath sounds equal bilaterally. No accessory muscle use. GASTROINTESTINAL: Abdomen soft, non-tender, nondistended. EXTREMITIES: No cyanosis, or edema. NEUROLOGICAL: sleeping Procedures None A/P Problem List: (1) Basal ganglia hemorrhage Status: Acute (2) Hemiparesis affecting right side as late effect of cerebrovascular accident (CVA) Status: Acute (3) Hypertensive emergency Status: Resolved (4) Metabolic acidosis Status: Resolved (5) UTI (urinary tract infection) Status: Resolved Assessment and Plan -Left basal ganglia bleed with 4mm MLS with Right hemiparesis-NARGIS Venegas. no surgery needed. -Alcohol and cocaine abuse dependence - Hypertensive emergency-resolved -Lactic acidosis-resolved -Hypertension-cont -Norvasc 10 mg daily. metoprolol 50 mg by mouth every 12 and lisinopril as well. Vasotec PRN for SBP >160 -Tobacco abuse -Transaminitis and chronic HCV - liver ultrasound showed fatty infiltration -Diarrhea-c dif was neg. -Metabolic Acidosis-resolved -UTI, e. coli-treated. -Thrombocytopenia-secondary to alcohol abuse-s/p platelet transfusion 05/10/16 with improvement in platelet count - 05/14 thrombocytopenia resolved. -Hyponatremia -Hypokalemia -Hypophosphatemia -Right arm pain - cont neurontin for right arm neuropathic pain -Bilateral SCDs, IV Protonix. Chemical DVT prophylaxis is contraindicated at this time, until cleared by neurosurgery Discharge Planning Will need placement due to right sided paresis. Discussed with Sarina Zhao MD May 22, 2016 11:08
[2016-05-22] MEDS: ACETAMINOPHEN 325 MG TAB PO PRN (21:28)
[2016-05-23] VITALS (7 sets, daily range): BP systolic 124–179; BP diastolic 69–85; PULSE 79–99; RESP 16–19; TEMP 96.8–98.7; O2SAT 93–99
[2016-05-23] MEDS: CHLORHEXIDINE GLUCONATE 2 % 1 PACK (2 CLOTHS) TOP SCH (00:03)
[2016-05-23] MEDS: POTASSIUM PHOSPHATE/SODIUM PHOSPHATE 250 MG TAB PO SCH ×3 (01:03→16:54)
[2016-05-23] MEDS: ENALAPRILAT 1.25 MG/ML VIAL IV PUSH PRN (03:58)
[2016-05-23] MEDS: LORazepam 2 MG/ML VIAL IV PUSH PRN ×2 (04:06→18:52)
[2016-05-23] MEDS: ACETAMINOPHEN 325 MG TAB PO PRN ×2 (04:07→21:12)
[2016-05-23] MEDS: GABAPENTIN 100 MG CAP PO SCH ×3 (09:15→16:54)
[2016-05-23] MEDS: METOPROLOL TARTRATE 25 MG TAB PO SCH ×2 (09:15→21:12)
[2016-05-23] MEDS: THIAMINE INJ 100 MG in SODIUM CHLORIDE 0.9% INJ 100 ML IV SCH (09:15)
[2016-05-23] MEDS: SODIUM CHLORIDE 0.9% FLUSH 5 ML FLUSH IVF SCH ×2 (09:16→21:15)
[2016-05-23] MEDS: LISINOPRIL 20 MG TAB PO SCH (09:16)
--- NOTE | 2016-05-23 11:47 | HHI.PR ---
Subjective Remarks Mentation is improving today. She denies right arm pain today. She is aware of the president and her location. She still gets the month wrong. Objective Vitals Vital Signs Date Time Temp Pulse Resp B/P Pulse Ox O2 Delivery O2 Flow Rate FiO2 05/23/16 08:09 97.6 80 16 137/78 97 05/23/16 04:44 97.2 88 19 179/79 96 05/23/16 00:15 96.8 79 17 124/69 95 05/22/16 21:00 90 05/22/16 20:24 98.1 102 19 149/88 94 05/22/16 16:00 97.8 96 16 119/67 98 05/22/16 12:00 96.9 84 16 142/81 99 I/O 05/22/16 05/22/16 05/22/16 05/23/16 05/23/16 05/23/16 07:00 15:00 23:00 07:00 15:00 23:00 Intake Total 420 ml 1300 ml 680 ml 680 ml Balance 420 ml 1300 ml 680 ml 680 ml Intake Oral 420 ml 1200 ml 680 ml 680 ml IV Total 100 ml # Voids 3 3 4 # Bowel Movements 0 0 Objective Remarks GENERAL: Well-nourished, well-developed somewhat dishevelled patient. SKIN: Warm and dry. HEAD: Normocephalic. EYES: No scleral icterus. No injection or drainage. NECK: Supple, trachea midline. No JVD or lymphadenopathy. CARDIOVASCULAR: Regular rate and rhythm without murmurs, gallops, or rubs. RESPIRATORY: Breath sounds equal bilaterally. No accessory muscle use. GASTROINTESTINAL: Abdomen soft, non-tender, nondistended. EXTREMITIES: No cyanosis, or edema. NEUROLOGICAL: Awake, alert and oriented to self, place, and the name of the president. She has right sided upper and lower [place] E weakness 3-4 out of 5. Speech is clearer today and mentation sharp. Procedures None A/P Problem List: (1) Basal ganglia hemorrhage Status: Acute (2) Hemiparesis affecting right side as late effect of cerebrovascular accident (CVA) Status: Acute (3) Hypertensive emergency Status: Resolved (4) Metabolic acidosis Status: Resolved (5) UTI (urinary tract infection) Status: Resolved Assessment and Plan -Left basal ganglia bleed with 4mm MLS with Right hemiparesis-NS Dr. Venegas has evaluated the patient. The bleed is been stable on repeat head CT. No surgery needed. -Alcohol and cocaine abuse dependence - patient has been counseled. - Hypertensive emergency-resolved -Lactic acidosis-resolved -Hypertension-cont -Norvasc 10 mg daily. metoprolol 50 mg by mouth every 12 and lisinopril as well. Vasotec PRN for SBP >160 -Tobacco abuse -Transaminitis and chronic HCV - liver ultrasound showed fatty infiltration -Diarrhea-c dif was neg. -Metabolic Acidosis-resolved -UTI, e. coli-treated. -Thrombocytopenia-secondary to alcohol abuse-s/p platelet transfusion 05/10/16 with improvement in platelet count - 05/14 thrombocytopenia resolved. -Hyponatremia - mild and chronic -Hypokalemia - was repleted. We'll repeat BMP in the morning. -Hypophosphatemia - repeat BMP in the morning. -Right arm pain - cont neurontin for right arm neuropathic pain -Bilateral SCDs, IV Protonix. Chemical DVT prophylaxis is contraindicated at this time, until cleared by neurosurgery Discharge Planning Will need placement due to right sided paresis which is not likely to have further improvement. She appears to have poor social support. Discussed with [place]. Sarina Lee MD May 23, 2016 11:47
[2016-05-24 00:27] VITALS: BP 130/76; PULSE 79; RESP 19; TEMP 97.7; O2SAT 5
[2016-05-24] MEDS: POTASSIUM PHOSPHATE/SODIUM PHOSPHATE 250 MG TAB PO SCH ×3 (01:16→17:15)
[2016-05-24] MEDS: LORazepam 2 MG/ML VIAL IV PUSH PRN (01:16)
[2016-05-24] MEDS: CHLORHEXIDINE GLUCONATE 2 % 1 PACK (2 CLOTHS) TOP SCH ×2 (01:22→19:20)
[2016-05-24 04:17] VITALS: BP 135/75; PULSE 92; RESP 17; TEMP 96.2; O2SAT 93
[2016-05-24 08:24] VITALS: BP 130/73; PULSE 91; RESP 18; TEMP 97.9; O2SAT 96
[2016-05-24 08:26] LABS: BICARBONATE 23.3 MEQ/L (21.0-32.0); POTASSIUM 3.5 MEQ/L (3.5-5.1)
[2016-05-24] MEDS: SODIUM CHLORIDE 0.9% FLUSH 5 ML FLUSH IVF SCH ×2 (08:45→21:17)
[2016-05-24] MEDS: THIAMINE HCL 100 MG TAB PO SCH (08:48)
[2016-05-24] MEDS: LISINOPRIL 20 MG TAB PO SCH (08:48)
[2016-05-24] MEDS: METOPROLOL TARTRATE 25 MG TAB PO SCH ×2 (08:48→21:16)
[2016-05-24] MEDS: GABAPENTIN 100 MG CAP PO SCH ×3 (08:48→17:15)
[2016-05-24 12:25] VITALS: BP 130/79; PULSE 93; RESP 17; TEMP 96.9; O2SAT 98
[2016-05-24] MEDS: ACETAMINOPHEN 325 MG TAB PO PRN (12:49)
--- NOTE | 2016-05-24 13:30 | HHI.PR ---
Subjective Remarks Denies arm pain. Calm, cooperative. Objective Vitals Vital Signs Date Time Temp Pulse Resp B/P Pulse Ox O2 Delivery O2 Flow Rate FiO2 05/24/16 12:25 96.9 93 17 130/79 98 05/24/16 08:24 97.9 91 18 130/73 96 05/24/16 04:17 96.2 92 17 135/75 93 05/24/16 00:27 97.7 79 19 130/76 5 05/23/16 21:00 91 05/23/16 20:16 98.7 99 18 155/85 93 05/23/16 16:21 96.9 92 17 133/75 99 I/O 05/23/16 05/23/16 05/23/16 05/24/16 05/24/16 05/24/16 07:00 15:00 23:00 07:00 15:00 23:00 Intake Total 680 ml 480 ml 680 ml 380 ml Balance 680 ml 480 ml 680 ml 380 ml Intake Oral 680 ml 480 ml 680 ml 380 ml # Voids 4 3 2 3 # Bowel Movements 0 0 0 0 Result Diagram: 05/24/16 0642 Objective Remarks GENERAL: Well-nourished, well-developed somewhat dishevelled patient. SKIN: Warm and dry. HEAD: Normocephalic. EYES: No scleral icterus. No injection or drainage. NECK: Supple, trachea midline. No JVD or lymphadenopathy. CARDIOVASCULAR: Regular rate and rhythm without murmurs, gallops, or rubs. RESPIRATORY: Breath sounds equal bilaterally. No accessory muscle use. GASTROINTESTINAL: Abdomen soft, non-tender, nondistended. EXTREMITIES: No cyanosis, or edema. NEUROLOGICAL: Awake, alert and oriented to self, place, and the name of the president. She has right sided upper and lower [place] E weakness 3-4 out of 5. Speech is clearer today and mentation sharp. Procedures None A/P Problem List: (1) Basal ganglia hemorrhage Status: Acute (2) Hemiparesis affecting right side as late effect of cerebrovascular accident (CVA) Status: Acute (3) Hypertensive emergency Status: Resolved (4) Metabolic acidosis Status: Resolved (5) UTI (urinary tract infection) Status: Resolved Assessment and Plan -Left basal ganglia bleed with 4mm MLS with Right hemiparesis-NS Dr. Venegas has evaluated the patient. The bleed is been stable on repeat head CT. No surgery needed. -Alcohol and cocaine abuse dependence - patient has been counseled. - Hypertensive emergency-resolved -Lactic acidosis-resolved -Hypertension-cont -Norvasc 10 mg daily. metoprolol 50 mg by mouth every 12 and lisinopril as well. Vasotec PRN for SBP >160 -Tobacco abuse -Transaminitis and chronic HCV - liver ultrasound showed fatty infiltration -Diarrhea-c dif was neg. -Metabolic Acidosis-resolved -UTI, e. coli-treated. -Thrombocytopenia-secondary to alcohol abuse-s/p platelet transfusion 05/10/16 with improvement in platelet count - 05/14 thrombocytopenia resolved. -Hyponatremia - mild and chronic -Hypokalemia - was repleted. We'll repeat BMP in the morning. -Hypophosphatemia - repeat BMP in the morning. -Right arm pain - cont neurontin for right arm neuropathic pain -Bilateral SCDs, IV Protonix. Chemical DVT prophylaxis is contraindicated at this time, until cleared by neurosurgery Discharge Planning Will need placement due to right sided paresis which is not likely to have further improvement. She appears to have poor social support. Discussed with Sarina Zhao MD May 24, 2016 13:30
[2016-05-24 16:11] VITALS: BP 133/84; PULSE 81; RESP 20; TEMP 96.8; O2SAT 100
[2016-05-24 20:00] VITALS: BP 132/74; PULSE 100; RESP 20; TEMP 98.3; O2SAT 97
[2016-05-25] VITALS (7 sets, daily range): BP systolic 123–136; BP diastolic 67–89; PULSE 84–101; RESP 17–20; TEMP 97.5–99.5; O2SAT 94–99
[2016-05-25] MEDS: LORazepam 2 MG/ML VIAL IV PUSH PRN ×2 (02:21→19:59)
[2016-05-25] MEDS: POTASSIUM PHOSPHATE/SODIUM PHOSPHATE 250 MG TAB PO SCH ×3 (02:21→17:07)
[2016-05-25] MEDS: SODIUM CHLORIDE 0.9% FLUSH 5 ML FLUSH IVF SCH ×2 (09:00→21:00)
[2016-05-25] MEDS: GABAPENTIN 100 MG CAP PO SCH ×3 (09:17→17:07)
[2016-05-25] MEDS: LISINOPRIL 20 MG TAB PO SCH (09:17)
[2016-05-25] MEDS: METOPROLOL TARTRATE 25 MG TAB PO SCH ×2 (09:17→19:58)
[2016-05-25] MEDS: THIAMINE HCL 100 MG TAB PO SCH (09:17)
--- NOTE | 2016-05-25 11:14 | HHI.PR ---
Subjective Remarks Getting a rash/some excoriation on her buttocks with pain. Denies right arm pain. Objective Vitals Vital Signs Date Time Temp Pulse Resp B/P Pulse Ox O2 Delivery O2 Flow Rate FiO2 05/25/16 08:13 97.5 97 18 136/78 96 05/25/16 04:58 98.8 92 20 131/79 99 05/25/16 00:56 98.2 84 20 129/89 94 05/24/16 20:00 98.3 100 20 132/74 97 05/24/16 16:11 96.8 81 20 133/84 100 05/24/16 12:25 96.9 93 17 130/79 98 I/O 05/24/16 05/24/16 05/24/16 05/25/16 05/25/16 05/25/16 07:00 15:00 23:00 07:00 15:00 23:00 Intake Total 380 ml 480 ml Balance 380 ml 480 ml Intake Oral 380 ml 480 ml # Voids 3 2 1 1 # Bowel Movements 0 1 Result Diagram: 05/24/16 0642 Objective Remarks GENERAL: Well-nourished, well-developed somewhat dishevelled patient. SKIN: Warm and dry. Skin around buttocks and perineum is erythematous with some mild excoriation, indicative of candidal infection. HEAD: Normocephalic. EYES: No scleral icterus. No injection or drainage. NECK: Supple, trachea midline. No JVD or lymphadenopathy. CARDIOVASCULAR: Regular rate and rhythm without murmurs, gallops, or rubs. RESPIRATORY: Breath sounds equal bilaterally. No accessory muscle use. GASTROINTESTINAL: Abdomen soft, non-tender, nondistended. EXTREMITIES: No cyanosis, or edema. NEUROLOGICAL: Awake, alert and oriented to self, place. She has right sided upper and lower extremity weakness 3-4 out of 5. Speech is clearer today and mentation sharp. Procedures None A/P Problem List: (1) Basal ganglia hemorrhage Status: Acute (2) Hemiparesis affecting right side as late effect of cerebrovascular accident (CVA) Status: Acute (3) Hypertensive emergency Status: Resolved (4) Metabolic acidosis Status: Resolved (5) UTI (urinary tract infection) Status: Resolved Assessment and Plan -Left basal ganglia bleed with 4mm MLS with Right hemiparesis-NS Dr. Venegas has evaluated the patient. The bleed has been stable on repeat head CT. No surgery needed. -Alcohol and cocaine abuse dependence - patient has been counseled. - Hypertensive emergency-resolved -Lactic acidosis-resolved -Hypertension-well controlled. cont norvasc 10 mg daily. metoprolol 50 mg by mouth every 12 and lisinopril as well. Vasotec PRN for SBP >160 -Tobacco abuse -Transaminitis and chronic HCV - liver ultrasound showed fatty infiltration -Diarrhea-c dif was neg. -Metabolic Acidosis-resolved -UTI, e. coli-treated. -Thrombocytopenia-secondary to alcohol abuse-s/p platelet transfusion 05/10/16 with improvement in platelet count - 05/14 thrombocytopenia resolved. -Hyponatremia - mild and chronic -Hypokalemia - was repleted. stable on repeat BMP 05/24. -Right arm pain - cont neurontin for right arm neuropathic pain -Candidal rash - will start diflucan topical. continue frequent position changes. -Bilateral SCDs, IV Protonix. Chemical DVT prophylaxis is contraindicated at this time, until cleared by neurosurgery Discharge Planning Will need placement due to right sided paresis which is not likely to have further improvement. She appears to have poor social support. Discussed with [place]. Sarina Lee MD May 25, 2016 11:14
[2016-05-25] MEDS: NYSTATIN 100,000 UNIT/GM CREAM 15 GM TOPICAL SCH ×2 (12:00→17:12)
[2016-05-26] VITALS (8 sets, daily range): BP systolic 105–144; BP diastolic 61–79; PULSE 82–89; RESP 16–20; TEMP 95.9–98.3; O2SAT 94–100
[2016-05-26] MEDS: NYSTATIN 100,000 UNIT/GM CREAM 15 GM TOPICAL SCH ×4 (00:36→16:44)
[2016-05-26] MEDS: POTASSIUM PHOSPHATE/SODIUM PHOSPHATE 250 MG TAB PO SCH ×3 (00:38→16:44)
[2016-05-26] MEDS: CHLORHEXIDINE GLUCONATE 2 % 1 PACK (2 CLOTHS) TOP SCH (03:45)
[2016-05-26] MEDS: ACETAMINOPHEN 325 MG TAB PO PRN ×3 (03:52→21:45)
[2016-05-26] MEDS: LORazepam 2 MG/ML VIAL IV PUSH PRN (03:53)
[2016-05-26] MEDS: GABAPENTIN 100 MG CAP PO SCH ×3 (07:33→16:44)
[2016-05-26] MEDS: LISINOPRIL 20 MG TAB PO SCH (07:34)
[2016-05-26] MEDS: METOPROLOL TARTRATE 25 MG TAB PO SCH ×2 (07:34→21:00)
[2016-05-26] MEDS: THIAMINE HCL 100 MG TAB PO SCH (07:34)
[2016-05-26] MEDS: SODIUM CHLORIDE 0.9% FLUSH 5 ML FLUSH IVF SCH ×2 (07:38→21:00)
--- NOTE | 2016-05-26 13:39 | HHI.PR ---
Subjective Remarks No acute events overnight. Patient seen in room, oriented only to person and place. No complaints at this time. Objective Vitals Vital Signs Date Time Temp Pulse Resp B/P Pulse Ox O2 Delivery O2 Flow Rate FiO2 05/26/16 11:18 88 05/26/16 09:20 95.9 84 18 129/75 96 05/26/16 05:56 86 05/26/16 04:58 97.6 84 20 105/61 96 05/26/16 04:58 18 05/26/16 00:00 97.2 83 20 142/79 94 05/25/16 20:29 99.5 101 20 124/74 95 05/25/16 16:52 88 05/25/16 16:07 97.7 92 17 123/67 95 I/O 05/25/16 05/25/16 05/25/16 05/26/16 05/26/16 05/26/16 07:00 15:00 23:00 07:00 15:00 23:00 Intake Total 480 ml Balance 480 ml Intake Oral 480 ml # Voids 1 2 1 1 # Bowel Movements 1 Result Diagram: 05/24/16 0642 Imaging Last Impressions Chest X-Ray 05/12/16 0600 Signed Impressions: Service Date/Time: Thursday, May 12, 2016 05:16 - CONCLUSION: No acute disease. Nadir Hebert MD Liver Ultrasound 05/11/16 0000 Signed Impressions: Service Date/Time: Wednesday, May 11, 2016 08:30 - CONCLUSION: 1. Liver is slightly echogenic which can be seen with fatty infiltration/hepatocellular dysfunction. 2. No evidence for cholelithiasis. Geremias Smith MD Head Magnetic Resonance Angiography 05/11/16 0000 Signed Impressions: Service Date/Time: Wednesday, May 11, 2016 16:21 - CONCLUSION: No acute [place] vascular abnormalities. Jeremy Toledo MD Brain MRI 05/11/16 0000 Signed Impressions: Service Date/Time: Wednesday, May 11, 2016 16:21 - CONCLUSION: 1. Focal acute intraparenchymal hemorrhage in the left thalamus measuring 2.8 cm most likely representing a focal hemorrhagic infarction. 2. Bilateral cortical atrophy and mild chronic white matter changes. 3. No enhancing mass occupying lesions are demonstrated. Estrada Vigil MD Abdomen X-Ray 05/11/16 0000 Signed Impressions: Service Date/Time: Wednesday, May 11, 2016 16:03 - CONCLUSION: No evidence of obstruction. No MRI incompatible foreign body is identified. Estrada Vigil MD Head CT 05/10/16 1431 Signed Impressions: Service Date/Time: Tuesday, May 10, 2016 15:07 - CONCLUSION: 1. 2.3 cm left thalamic hypertensive type hemorrhage with approximately 4 mm of [id number]-[id number] subfalcine shift. 2. Mild periventricular small vessel ischemic demyelination. 3. Results were called to Dr. Barboza at the time of this dictation. Nicholas Dove MD Objective Remarks GENERAL: Thin, unkept appearance, appears older than stated age. SKIN: Warm and dry. HEAD: Normocephalic. Nontraumatic EYES: No scleral icterus. No injection or drainage. NECK: Supple, trachea midline. No JVD. CARDIOVASCULAR: Regular rate and rhythm without murmurs, gallops, or rubs. RESPIRATORY: Breath sounds equal bilaterally. No accessory muscle use. GASTROINTESTINAL: Abdomen soft, non-tender, nondistended. MUSCULOSKELETAL: No cyanosis, or edema. BACK: Nontender without obvious deformity. No CVA tenderness. NEUROLOGICAL: Awake, alert and oriented to self, place. Right UE and LE weakness 3-4 out of 5, as well as right-sided facial droop. Speech is clear. Procedures None A/P Problem List: (1) Basal ganglia hemorrhage Status: Acute (2) Hemiparesis affecting right side as late effect of cerebrovascular accident (CVA) Status: Acute (3) Hypertensive emergency Status: Resolved (4) Metabolic acidosis Status: Resolved (5) UTI (urinary tract infection) Status: Resolved Assessment and Plan 55 year old female with: -Left basal ganglia bleed with 4mm MLS with Right hemiparesis-NS Dr. Venegas has evaluated the patient. The bleed has been stable on repeat head CT. No surgery needed. -Alcohol and cocaine abuse dependence - Cessation strongly encouraged. -Hypertensive emergency-resolved. -Lactic acidosis-resolved -Hypertension-well controlled. Cont norvasc, metoprolol, and lisinopril. Vasotec PRN for SBP >160 -Tobacco abuse- Cessation strongly encouraged. -Transaminitis and chronic HCV - liver ultrasound showed fatty infiltration -Diarrhea-c dif was neg. -Metabolic Acidosis-resolved -UTI, e. coli-treated. Resolved. -Thrombocytopenia-secondary to alcohol abuse-s/p platelet transfusion 05/10/16 with improvement in platelet count - 05/14 thrombocytopenia resolved. -Hyponatremia - mild and chronic; within normal limits on 05/24/16 -Hypokalemia -stable on repeat BMP 05/24. -Right arm/ neuropathic pain - cont neurontin. -Candidal rash -tolerating diflucan topical. continue frequent position changes and frequent toileting. -Bilateral SCDs, IV Protonix. Chemical DVT prophylaxis is contraindicated at this time, until cleared by neurosurgery Care discussed with patient, RN, Dr. Lee. Discharge Planning Case managing assisting placement. Ericka Lopez May 26, 2016 13:39 Sarina Lee MD May 26, 2016 17:22
[2016-05-27] VITALS (9 sets, daily range): BP systolic 125–136; BP diastolic 68–86; PULSE 80–113; RESP 18–21; TEMP 97.1–98.7; O2SAT 93–98
[2016-05-27] MEDS: POTASSIUM PHOSPHATE/SODIUM PHOSPHATE 250 MG TAB PO SCH ×3 (00:54→18:08)
[2016-05-27] MEDS: CHLORHEXIDINE GLUCONATE 2 % 1 PACK (2 CLOTHS) TOP SCH (03:59)
[2016-05-27] MEDS: NYSTATIN 100,000 UNIT/GM CREAM 15 GM TOPICAL SCH ×4 (05:44→18:00)
[2016-05-27] MEDS: THIAMINE HCL 100 MG TAB PO SCH (09:00)
[2016-05-27] MEDS: SODIUM CHLORIDE 0.9% FLUSH 5 ML FLUSH IVF SCH ×2 (09:00→21:00)
[2016-05-27] MEDS: ACETAMINOPHEN 325 MG TAB PO PRN (10:27)
[2016-05-27] MEDS: METOPROLOL TARTRATE 25 MG TAB PO SCH ×2 (10:28→21:00)
[2016-05-27] MEDS: LISINOPRIL 20 MG TAB PO SCH (10:28)
[2016-05-27] MEDS: GABAPENTIN 100 MG CAP PO SCH ×3 (10:28→18:07)
[2016-05-27] MEDS ORDERED: ACETAMINOPHEN/HYDROcodone 325 MG/5 MG TAB PO ONE (11:00)
[2016-05-27] MEDS ORDERED: QUEtiapine FUMARATE 25 MG TAB PO ONE (11:00)
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
[2016-05-27] MEDS ORDERED: PILL SPLITTER OTHER PRN (11:15)
[2016-05-27] MEDS: QUEtiapine FUMARATE 25 MG TAB PO SCH (21:11)
[2016-05-28] VITALS (7 sets, daily range): BP systolic 119–129; BP diastolic 60–80; PULSE 84–103; RESP 17–18; TEMP 97–98; O2SAT 95–98
[2016-05-28] MEDS: POTASSIUM PHOSPHATE/SODIUM PHOSPHATE 250 MG TAB PO SCH ×3 (02:08→17:35)
[2016-05-28] MEDS: CHLORHEXIDINE GLUCONATE 2 % 1 PACK (2 CLOTHS) TOP SCH (04:00)
[2016-05-28] MEDS: NYSTATIN 100,000 UNIT/GM CREAM 15 GM TOPICAL SCH ×4 (06:00→17:39)
[2016-05-28] MEDS: THIAMINE HCL 100 MG TAB PO SCH (08:02)
[2016-05-28] MEDS: LISINOPRIL 20 MG TAB PO SCH (08:02)
[2016-05-28] MEDS: METOPROLOL TARTRATE 25 MG TAB PO SCH ×2 (08:03→22:04)
[2016-05-28] MEDS: GABAPENTIN 100 MG CAP PO SCH ×3 (08:03→17:35)
[2016-05-28] MEDS: SODIUM CHLORIDE 0.9% FLUSH 5 ML FLUSH IVF SCH ×2 (08:08→22:04)
[2016-05-28] MEDS: LORazepam 1 MG TAB PO PRN (12:23)
--- NOTE | 2016-05-28 15:55 | HHI.PR ---
Subjective Remarks Patient has been somewhat restless today pulling off her clothes frequently. She is no longer anxious though. She denies pain. Objective Vitals Vital Signs Date Time Temp Pulse Resp B/P Pulse Ox O2 Delivery O2 Flow Rate FiO2 05/28/16 12:07 97.2 84 18 129/74 98 05/28/16 08:25 97.1 91 18 119/71 95 05/28/16 06:00 97.0 100 18 120/80 96 05/27/16 22:55 97.1 80 21 125/74 95 05/27/16 21:30 98.0 88 19 129/69 96 05/27/16 19:00 94 I/O 05/27/16 05/27/16 05/27/16 05/28/16 05/28/16 05/28/16 07:00 15:00 23:00 07:00 15:00 23:00 Intake Total 650 ml 480 ml 600 ml 600 ml Balance 650 ml 480 ml 600 ml 600 ml Intake Oral 650 ml 480 ml 600 ml 600 ml # Voids 4 3 2 3 # Bowel Movements 2 0 0 Result Diagram: 05/24/16 0642 Objective Remarks GENERAL: Well-nourished, well-developed somewhat dishevelled patient. SKIN: Warm and dry. Skin around buttocks and perineum is erythematous without erythema. HEAD: Normocephalic. EYES: No scleral icterus. No injection or drainage. NECK: Supple, trachea midline. No JVD or lymphadenopathy. CARDIOVASCULAR: Regular rate and rhythm without murmurs, gallops, or rubs. RESPIRATORY: Breath sounds equal bilaterally. No accessory muscle use. GASTROINTESTINAL: Abdomen soft, non-tender, nondistended. EXTREMITIES: No cyanosis, or edema. NEUROLOGICAL: Awake, alert and oriented to self, place. She has right sided upper and lower extremity weakness 3-4 out of 5. Procedures None A/P Problem List: (1) Basal ganglia hemorrhage Status: Acute (2) Hemiparesis affecting right side as late effect of cerebrovascular accident (CVA) Status: Acute (3) Hypertensive emergency Status: Resolved (4) Metabolic acidosis Status: Resolved (5) UTI (urinary tract infection) Status: Resolved Assessment and Plan -Left basal ganglia bleed with 4mm MLS with Right hemiparesis-NS Dr. Venegas has evaluated the patient. The bleed has been stable on repeat head CT. No surgery needed. -Alcohol and cocaine abuse dependence - patient has been counseled. - Hypertensive emergency-resolved -Lactic acidosis-resolved -Hypertension-well controlled. cont norvasc 10 mg daily. metoprolol 50 mg by mouth every 12 and lisinopril as well. Vasotec PRN for SBP >160 -Tobacco abuse -Transaminitis and chronic HCV - liver ultrasound showed fatty infiltration -Diarrhea-c dif was neg. -Metabolic Acidosis-resolved -UTI, e. coli-treated. -Thrombocytopenia-secondary to alcohol abuse-s/p platelet transfusion 05/10/16 with improvement in platelet count - 05/14 thrombocytopenia resolved. -Hyponatremia - mild and chronic -Hypokalemia - was repleted. stable on repeat BMP 05/24. -Right arm pain - cont neurontin for right arm neuropathic pain -Candidal rash -improved. Continue diflucan topical. continue frequent position changes. -Anxiety. Seroquel low-dose 12 point milligrams was initiated on 05/27. Mood seems calmer today. -Bilateral SCDs Discharge Planning Will need placement due to right sided paresis which is not likely to have further improvement. She appears to have poor social support. Discussed with [place]. Sarina Lee MD May 28, 2016 15:55
[2016-05-28] MEDS: QUEtiapine FUMARATE 25 MG TAB PO SCH (22:03)
[2016-05-29] VITALS (7 sets, daily range): BP systolic 108–130; BP diastolic 65–76; PULSE 69–105; RESP 18–20; TEMP 96.4–98.6; O2SAT 95–99
[2016-05-29] MEDS: NYSTATIN 100,000 UNIT/GM CREAM 15 GM TOPICAL SCH ×5 (02:05→23:37)
[2016-05-29] MEDS: POTASSIUM PHOSPHATE/SODIUM PHOSPHATE 250 MG TAB PO SCH ×4 (02:05→23:35)
[2016-05-29] MEDS: CHLORHEXIDINE GLUCONATE 2 % 1 PACK (2 CLOTHS) TOP SCH ×2 (04:00→23:36)
[2016-05-29] MEDS: METOPROLOL TARTRATE 25 MG TAB PO SCH ×2 (08:27→21:24)
[2016-05-29] MEDS: GABAPENTIN 100 MG CAP PO SCH ×3 (08:27→17:02)
[2016-05-29] MEDS: THIAMINE HCL 100 MG TAB PO SCH (08:27)
[2016-05-29] MEDS: LISINOPRIL 20 MG TAB PO SCH (08:27)
[2016-05-29] MEDS: SODIUM CHLORIDE 0.9% FLUSH 5 ML FLUSH IVF SCH ×2 (09:00→21:25)
--- NOTE | 2016-05-29 14:31 | HHI.PR ---
Subjective Remarks No acute events overnight. Patient has no complaints except for right sided weakness. Objective Vitals Vital Signs Date Time Temp Pulse Resp B/P Pulse Ox O2 Delivery O2 Flow Rate FiO2 05/29/16 12:17 96.4 69 20 108/67 97 05/29/16 08:00 97.1 84 20 119/71 99 05/29/16 06:15 98.0 88 19 130/65 96 05/29/16 00:00 97.7 105 18 120/76 95 05/28/16 22:30 98.0 100 17 123/60 96 05/28/16 20:00 103 05/28/16 18:30 99 05/28/16 16:00 97.6 95 18 119/74 98 I/O 05/28/16 05/28/16 05/28/16 05/29/16 05/29/16 05/29/16 07:00 15:00 23:00 07:00 15:00 23:00 Intake Total 600 ml 720 ml 650 ml 900 ml Balance 600 ml 720 ml 650 ml 900 ml Intake Oral 600 ml 720 ml 650 ml 900 ml # Voids 3 3 2 3 # Bowel Movements 0 0 0 0 Imaging Last Impressions Chest X-Ray 05/12/16 0600 Signed Impressions: Service Date/Time: Thursday, May 12, 2016 05:16 - CONCLUSION: No acute disease. Nadir Hebert MD Liver Ultrasound 05/11/16 0000 Signed Impressions: Service Date/Time: Wednesday, May 11, 2016 08:30 - CONCLUSION: 1. Liver is slightly echogenic which can be seen with fatty infiltration/hepatocellular dysfunction. 2. No evidence for cholelithiasis. Geremias Smith MD Head Magnetic Resonance Angiography 05/11/16 0000 Signed Impressions: Service Date/Time: Wednesday, May 11, 2016 16:21 - CONCLUSION: No acute [place] vascular abnormalities. Jeremy Toledo MD Brain MRI 05/11/16 0000 Signed Impressions: Service Date/Time: Wednesday, May 11, 2016 16:21 - CONCLUSION: 1. Focal acute intraparenchymal hemorrhage in the left thalamus measuring 2.8 cm most likely representing a focal hemorrhagic infarction. 2. Bilateral cortical atrophy and mild chronic white matter changes. 3. No enhancing mass occupying lesions are demonstrated. Estrada Vigil MD Abdomen X-Ray 05/11/16 0000 Signed Impressions: Service Date/Time: Wednesday, May 11, 2016 16:03 - CONCLUSION: No evidence of obstruction. No MRI incompatible foreign body is identified. Estrada Vigil MD Head CT 05/10/16 1431 Signed Impressions: Service Date/Time: Tuesday, May 10, 2016 15:07 - CONCLUSION: 1. 2.3 cm left thalamic hypertensive type hemorrhage with approximately 4 mm of [id number] subfalcine shift. 2. Mild periventricular small vessel ischemic demyelination. 3. Results were called to Dr. Barboza at the time of this dictation. Nicholas Dove MD Objective Remarks GENERAL: Well-nourished, well-developed somewhat dishevelled patient. SKIN: Warm and dry. Skin around buttocks and perineum is erythematous without erythema. HEAD: Normocephalic. EYES: No scleral icterus. No injection or drainage. NECK: Supple, trachea midline. No JVD or lymphadenopathy. CARDIOVASCULAR: Regular rate and rhythm without murmurs, gallops, or rubs. RESPIRATORY: Breath sounds equal bilaterally. No accessory muscle use. GASTROINTESTINAL: Abdomen soft, non-tender, nondistended. EXTREMITIES: No cyanosis, or edema. NEUROLOGICAL: Awake, alert and oriented to self, place. She has right sided upper and lower extremity weakness 3-4 out of 5. Procedures None A/P Problem List: (1) Basal ganglia hemorrhage Status: Acute (2) Hemiparesis affecting right side as late effect of cerebrovascular accident (CVA) Status: Acute (3) Hypertensive emergency Status: Resolved (4) Metabolic acidosis Status: Resolved (5) UTI (urinary tract infection) Status: Resolved Assessment and Plan -Left basal ganglia bleed with 4mm MLS with Right hemiparesis-NS Dr. Venegas has evaluated the patient. The bleed has been stable on repeat head CT. No surgery needed. -Alcohol and cocaine abuse dependence - patient has been counseled. -Hypertension-well controlled. cont norvasc 10 mg daily. metoprolol 50 mg by mouth every 12 and lisinopril as well. Vasotec PRN for SBP >160 -Tobacco abuse -Transaminitis and chronic HCV - liver ultrasound showed fatty infiltration -UTI, e. coli-treated. -Thrombocytopenia-secondary to alcohol abuse-s/p platelet transfusion 05/10/16 with improvement in platelet count - 05/14 thrombocytopenia resolved. -Hyponatremia - mild and chronic -Hypokalemia - was repleted. stable on repeat BMP 05/24. -Right arm pain - cont Neurontin for right arm neuropathic pain -Candidal rash -improved. Continue diflucan topical. continue frequent position changes. -Anxiety. Seroquel low-dose initiated on 05/27. Mood seems ok. -Bilateral SCDs Discharge Planning Will need placement due to right sided paresis which is not likely to have further improvement. She appears to have poor social support. CM following. Mehnaz Duval MD May 29, 2016 14:30
[2016-05-29] MEDS: QUEtiapine FUMARATE 25 MG TAB PO SCH (21:24)
[2016-05-30] VITALS (8 sets, daily range): BP systolic 117–144; BP diastolic 64–78; PULSE 77–89; RESP 15–20; TEMP 96.7–99.3; O2SAT 97–99
[2016-05-30] MEDS: NYSTATIN 100,000 UNIT/GM CREAM 15 GM TOPICAL SCH ×3 (05:42→17:11)
[2016-05-30] MEDS: GABAPENTIN 100 MG CAP PO SCH ×3 (08:24→17:11)
[2016-05-30] MEDS: LISINOPRIL 20 MG TAB PO SCH (08:24)
[2016-05-30] MEDS: THIAMINE HCL 100 MG TAB PO SCH (08:25)
[2016-05-30] MEDS: SODIUM CHLORIDE 0.9% FLUSH 5 ML FLUSH IVF SCH ×2 (08:25→21:00)
[2016-05-30] MEDS: POTASSIUM PHOSPHATE/SODIUM PHOSPHATE 250 MG TAB PO SCH ×2 (08:25→17:10)
[2016-05-30] MEDS: METOPROLOL TARTRATE 25 MG TAB PO SCH ×2 (08:25→20:59)
--- NOTE | 2016-05-30 14:49 | HHI.PR ---
Subjective Remarks "Right is not working" No new complaints. Objective Vitals Vital Signs Date Time Temp Pulse Resp B/P Pulse Ox O2 Delivery O2 Flow Rate FiO2 05/30/16 13:07 97.1 77 15 118/64 99 05/30/16 11:28 82 05/30/16 08:59 96.7 84 16 144/78 98 05/30/16 04:00 97.7 85 20 126/75 98 05/30/16 00:00 98.3 87 20 117/69 97 05/29/16 20:00 98.6 91 20 121/72 99 05/29/16 17:00 96.8 84 20 118/69 97 05/29/16 15:16 88 I/O 05/29/16 05/29/16 05/29/16 05/30/16 05/30/16 05/30/16 06:59 14:59 22:59 06:59 14:59 22:59 Intake Total 900 ml 900 ml 240 ml 360 ml Balance 900 ml 900 ml 240 ml 360 ml Intake Oral 900 ml 900 ml 240 ml 360 ml # Voids 3 2 3 2 # Bowel Movements 0 0 0 0 Objective Remarks GENERAL: Somewhat dishevelled patient. SKIN: Warm and dry. Skin around buttocks and perineum is erythematous without erythema. HEAD: Normocephalic. EYES: No scleral icterus. No injection or drainage. NECK: Supple, trachea midline. No JVD or lymphadenopathy. CARDIOVASCULAR: Regular rate and rhythm without murmurs, gallops, or rubs. RESPIRATORY: Breath sounds equal bilaterally. No accessory muscle use. GASTROINTESTINAL: Abdomen soft, non-tender, nondistended. EXTREMITIES: No cyanosis, or edema. NEUROLOGICAL: Awake, alert and oriented to self, place. She has right sided upper and lower extremity weakness 3-4 out of 5. Procedures None A/P Problem List: (1) Basal ganglia hemorrhage Status: Acute (2) Hemiparesis affecting right side as late effect of cerebrovascular accident (CVA) Status: Acute (3) Hypertensive emergency Status: Resolved (4) Metabolic acidosis Status: Resolved (5) UTI (urinary tract infection) Status: Resolved Assessment and Plan -Left basal ganglia bleed with 4mm MLS with Right hemiparesis-NS Dr. Venegas has evaluated the patient. The bleed has been stable on repeat head CT. No surgery needed. -Alcohol and cocaine abuse dependence - patient has been counseled. -Hypertension-well controlled. cont norvasc 10 mg daily. metoprolol 50 mg by mouth every 12 and lisinopril as well. Vasotec PRN for SBP >160 -Tobacco abuse -Transaminitis and chronic HCV - liver ultrasound showed fatty infiltration -UTI, e. coli-treated. -Thrombocytopenia-secondary to alcohol abuse-s/p platelet transfusion 05/10/16 with improvement in platelet count - 05/14 thrombocytopenia resolved. -Hyponatremia - mild and chronic -Hypokalemia - was repleted. stable on repeat BMP 05/24. -Right arm pain - cont Neurontin for right arm neuropathic pain -Candidal rash -improved. Continue Diflucan topical. continue frequent position changes. -Anxiety. Seroquel low-dose initiated on 05/27. Mood seems OK. -Bilateral SCDs Discharge Planning Will need placement due to right sided paresis which is not likely to have further improvement. She appears to have poor social support. CM following. Mehnaz Duval MD May 30, 2016 14:49
[2016-05-30] MEDS: QUEtiapine FUMARATE 25 MG TAB PO SCH (21:00)
[2016-05-31 00:38] VITALS: BP 127/74; PULSE 80; RESP 18; TEMP 97.7; O2SAT 97
[2016-05-31] MEDS: POTASSIUM PHOSPHATE/SODIUM PHOSPHATE 250 MG TAB PO SCH ×3 (01:49→17:54)
[2016-05-31] MEDS: NYSTATIN 100,000 UNIT/GM CREAM 15 GM TOPICAL SCH ×4 (01:49→17:55)
[2016-05-31] MEDS: CHLORHEXIDINE GLUCONATE 2 % 1 PACK (2 CLOTHS) TOP SCH (03:53)
[2016-05-31 05:43] VITALS: BP 108/65; PULSE 90; RESP 19; TEMP 98.5; O2SAT 97
[2016-05-31 08:00] VITALS: BP 141/67; PULSE 73; RESP 15; TEMP 98.1; O2SAT 98
[2016-05-31 08:05] VITALS: PULSE 85
[2016-05-31] MEDS: METOPROLOL TARTRATE 25 MG TAB PO SCH ×2 (08:22→20:50)
[2016-05-31] MEDS: GABAPENTIN 100 MG CAP PO SCH ×3 (08:22→17:54)
[2016-05-31] MEDS: LISINOPRIL 20 MG TAB PO SCH ×2 (08:22→08:25)
[2016-05-31] MEDS: THIAMINE HCL 100 MG TAB PO SCH (08:22)
[2016-05-31] MEDS: SODIUM CHLORIDE 0.9% FLUSH 5 ML FLUSH IVF SCH ×2 (08:23→20:52)
[2016-05-31 12:00] VITALS: BP 118/64; PULSE 74; RESP 16; TEMP 98.6; O2SAT 97
--- NOTE | 2016-05-31 13:08 | HHI.PR ---
Subjective Remarks No new complaints. Wishing she could leave the hospital. Still cannot move the right side. Objective Vitals Vital Signs Date Time Temp Pulse Resp B/P Pulse Ox O2 Delivery O2 Flow Rate FiO2 05/31/16 12:00 98.6 74 16 118/64 97 05/31/16 08:00 98.1 73 15 141/67 98 05/31/16 05:43 98.5 90 19 108/65 97 05/31/16 00:38 97.7 80 18 127/74 97 05/30/16 21:03 98.8 87 19 125/67 97 05/30/16 20:10 89 05/30/16 16:43 99.3 84 15 130/73 99 I/O 05/30/16 05/30/16 05/30/16 05/31/16 05/31/16 05/31/16 07:00 15:00 23:00 07:00 15:00 23:00 Intake Total 240 ml 360 ml Balance 240 ml 360 ml Intake Oral 240 ml 360 ml # Voids 3 2 1 # Bowel Movements 0 0 Objective Remarks GENERAL: Somewhat dishevelled patient. SKIN: Warm and dry. Skin around buttocks and perineum is erythematous without erythema. HEAD: Normocephalic. EYES: No scleral icterus. No injection or drainage. NECK: Supple, trachea midline. No JVD or lymphadenopathy. CARDIOVASCULAR: Regular rate and rhythm without murmurs, gallops, or rubs. RESPIRATORY: Breath sounds equal bilaterally. No accessory muscle use. GASTROINTESTINAL: Abdomen soft, non-tender, nondistended. EXTREMITIES: No cyanosis, or edema. NEUROLOGICAL: Awake, alert and oriented to self, place. She has right sided upper and lower extremity weakness 3 out of 5. Procedures None A/P Problem List: (1) Basal ganglia hemorrhage Status: Acute (2) Hemiparesis affecting right side as late effect of cerebrovascular accident (CVA) Status: Acute (3) Hypertensive emergency Status: Resolved (4) Metabolic acidosis Status: Resolved (5) UTI (urinary tract infection) Status: Resolved Assessment and Plan -Left basal ganglia bleed with 4mm MLS with Right hemiparesis-NS Dr. Venegas has evaluated the patient. The bleed has been stable on repeat head CT. No surgery needed. -Alcohol and cocaine abuse dependence - patient has been counseled. -Hypertension-well controlled. cont norvasc 10 mg daily. metoprolol 50 mg by mouth every 12 and lisinopril as well. Vasotec PRN for SBP >160 -Tobacco abuse -Transaminitis and chronic HCV - liver ultrasound showed fatty infiltration -UTI, e. coli-treated. -Thrombocytopenia-secondary to alcohol abuse-s/p platelet transfusion 05/10/16 with improvement in platelet count - 05/14 thrombocytopenia resolved. -Hyponatremia - mild and chronic -Hypokalemia - was repleted. stable on repeat BMP 05/24. -Right arm pain - cont Neurontin for right arm neuropathic pain -Candidal rash -improved. Continue Diflucan topical. continue frequent position changes. -Anxiety. Seroquel low-dose initiated on 05/27. Mood seems OK. -Bilateral SCDs Discharge Planning Will need placement due to right sided paresis which is not likely to have further improvement. She appears to have poor social support. CM following. Mehnaz Duval MD May 31, 2016 13:08
[2016-05-31] MEDS: LORazepam 1 MG TAB PO PRN (14:10)
[2016-05-31 20:24] VITALS: BP 137/70; PULSE 95; RESP 18; TEMP 97.5; O2SAT 96
[2016-05-31] MEDS: QUEtiapine FUMARATE 25 MG TAB PO SCH (20:50)
[2016-06-01] VITALS (7 sets, daily range): BP systolic 107–146; BP diastolic 68–91; PULSE 82–104; RESP 14–18; TEMP 97.2–99.1; O2SAT 94–100
[2016-06-01] MEDS: LORazepam 1 MG TAB PO PRN (00:28)
[2016-06-01] MEDS: POTASSIUM PHOSPHATE/SODIUM PHOSPHATE 250 MG TAB PO SCH ×3 (00:28→17:17)
[2016-06-01] MEDS: NYSTATIN 100,000 UNIT/GM CREAM 15 GM TOPICAL SCH ×4 (00:32→17:17)
[2016-06-01] MEDS: CHLORHEXIDINE GLUCONATE 2 % 1 PACK (2 CLOTHS) TOP SCH (01:09)
[2016-06-01] MEDS: LISINOPRIL 20 MG TAB PO SCH (09:00)
[2016-06-01] MEDS: SODIUM CHLORIDE 0.9% FLUSH 5 ML FLUSH IVF SCH ×2 (09:02→21:15)
[2016-06-01] MEDS: THIAMINE HCL 100 MG TAB PO SCH (09:02)
[2016-06-01] MEDS: GABAPENTIN 100 MG CAP PO SCH ×3 (09:02→17:17)
[2016-06-01] MEDS: METOPROLOL TARTRATE 25 MG TAB PO SCH ×2 (09:03→21:15)
--- NOTE | 2016-06-01 12:48 | HHI.PR ---
Subjective Remarks No new complaints. Confusion persist. She days she has bad days and ok days. Still cannot move the right side. Objective Vitals Vital Signs Date Time Temp Pulse Resp B/P Pulse Ox O2 Delivery O2 Flow Rate FiO2 06/01/16 12:02 98.6 94 16 115/77 94 06/01/16 11:57 85 06/01/16 08:00 98.6 96 17 107/70 100 06/01/16 04:00 98.3 89 18 130/74 98 06/01/16 00:00 99.1 94 18 136/91 99 05/31/16 20:24 97.5 95 18 137/70 96 I/O 05/31/16 05/31/16 05/31/16 06/01/16 06/01/16 06/01/16 07:00 15:00 23:00 07:00 15:00 23:00 Intake Total 750 ml 120 ml Balance 750 ml 120 ml Intake Oral 750 ml 120 ml # Voids 1 5 1 2 # Bowel Movements 3 0 0 Imaging Last Impressions Chest X-Ray 05/12/16 0600 Signed Impressions: Service Date/Time: Thursday, May 12, 2016 05:16 - CONCLUSION: No acute disease. Nadir Hebert MD Liver Ultrasound 05/11/16 0000 Signed Impressions: Service Date/Time: Wednesday, May 11, 2016 08:30 - CONCLUSION: 1. Liver is slightly echogenic which can be seen with fatty infiltration/hepatocellular dysfunction. 2. No evidence for cholelithiasis. Geremias Smith MD Head Magnetic Resonance Angiography 05/11/16 0000 Signed Impressions: Service Date/Time: Wednesday, May 11, 2016 16:21 - CONCLUSION: No acute [place] vascular abnormalities. Jeremy Toledo MD Brain MRI 05/11/16 0000 Signed Impressions: Service Date/Time: Wednesday, May 11, 2016 16:21 - CONCLUSION: 1. Focal acute intraparenchymal hemorrhage in the left thalamus measuring 2.8 cm most likely representing a focal hemorrhagic infarction. 2. Bilateral cortical atrophy and mild chronic white matter changes. 3. No enhancing mass occupying lesions are demonstrated. Estrada Vigil MD Abdomen X-Ray 05/11/16 0000 Signed Impressions: Service Date/Time: Wednesday, May 11, 2016 16:03 - CONCLUSION: No evidence of obstruction. No MRI incompatible foreign body is identified. Estrada Vigil MD Head CT 05/10/16 1431 Signed Impressions: Service Date/Time: Tuesday, May 10, 2016 15:07 - CONCLUSION: 1. 2.3 cm left thalamic hypertensive type hemorrhage with approximately 4 mm of [id number] subfalcine shift. 2. Mild periventricular small vessel ischemic demyelination. 3. Results were called to Dr. Barboza at the time of this dictation. Nicholas Dove MD Objective Remarks GENERAL: Somewhat dishevelled patient. SKIN: Warm and dry. HEAD: Normocephalic. EYES: No scleral icterus. No injection or drainage. NECK: Supple, trachea midline. No JVD or lymphadenopathy. CARDIOVASCULAR: Regular rate and rhythm without murmurs, gallops, or rubs. RESPIRATORY: Breath sounds equal bilaterally. No accessory muscle use. GASTROINTESTINAL: Abdomen soft, non-tender, nondistended. EXTREMITIES: No cyanosis, or edema. NEUROLOGICAL: Awake, alert and oriented to self only. She has right sided upper and lower extremity weakness 3 out of 5. Procedures None A/P Problem List: (1) Basal ganglia hemorrhage Status: Acute (2) Hemiparesis affecting right side as late effect of cerebrovascular accident (CVA) Status: Acute (3) Hypertensive emergency Status: Resolved (4) Metabolic acidosis Status: Resolved (5) UTI (urinary tract infection) Status: Resolved Assessment and Plan -Left basal ganglia bleed with 4mm MLS with Right hemiparesis-NS Dr. Venegas has evaluated the patient. The bleed has been stable on repeat head CT. No surgery needed. -Alcohol and cocaine abuse dependence - patient has been counseled. -Hypertension-well controlled. cont norvasc 10 mg daily. metoprolol 50 mg by mouth every 12 and lisinopril as well. Vasotec PRN for SBP >160 -Tobacco abuse -Transaminitis and chronic HCV - liver ultrasound showed fatty infiltration -UTI, e. coli-treated. -Thrombocytopenia-secondary to alcohol abuse-s/p platelet transfusion 05/10/16 with improvement in platelet count - 05/14 thrombocytopenia resolved. -Right arm pain - cont Neurontin for right arm neuropathic pain -Candidal rash -improved. Continue Diflucan topical. continue frequent position changes. -Anxiety. Seroquel low-dose initiated on 05/27. Mood seems OK. -Bilateral SCDs Discharge Planning Will need placement due to right sided paresis which is not likely to have further improvement. She appears to have poor social support. Unable to make decisions. CM following. Her parents and boyfriend visited per RN. Mehnaz Duval MD Jun 01, 2016 12:48
[2016-06-01] MEDS: QUEtiapine FUMARATE 25 MG TAB PO SCH (21:15)
[2016-06-02] VITALS (7 sets, daily range): BP systolic 122–142; BP diastolic 72–78; PULSE 77–98; RESP 17–20; TEMP 96.5–99.4; O2SAT 94–100
[2016-06-02] MEDS: LORazepam 1 MG TAB PO PRN (00:32)
[2016-06-02] MEDS: POTASSIUM PHOSPHATE/SODIUM PHOSPHATE 250 MG TAB PO SCH ×3 (00:34→18:49)
[2016-06-02] MEDS: CHLORHEXIDINE GLUCONATE 2 % 1 PACK (2 CLOTHS) TOP SCH (04:00)
[2016-06-02] MEDS: LISINOPRIL 20 MG TAB PO SCH (09:00)
[2016-06-02] MEDS: THIAMINE HCL 100 MG TAB PO SCH (10:01)
[2016-06-02] MEDS: METOPROLOL TARTRATE 25 MG TAB PO SCH ×2 (10:01→20:28)
[2016-06-02] MEDS: GABAPENTIN 100 MG CAP PO SCH ×3 (10:02→18:49)
[2016-06-02] MEDS: NYSTATIN 100,000 UNIT/GM CREAM 15 GM TOPICAL SCH ×3 (10:16→18:50)
[2016-06-02] MEDS: SODIUM CHLORIDE 0.9% FLUSH 5 ML FLUSH IVF SCH ×2 (10:20→20:29)
--- NOTE | 2016-06-02 14:29 | HHI.PR ---
Subjective Remarks Patient is still confused. Very sleepy. She reports right sided weakness. Objective Vitals Vital Signs Date Time Temp Pulse Resp B/P Pulse Ox O2 Delivery O2 Flow Rate FiO2 06/02/16 12:05 96.5 77 17 122/72 97 06/02/16 09:09 97.2 93 18 124/74 100 06/02/16 04:00 97.6 89 18 135/73 97 06/02/16 00:00 97.0 87 18 142/78 95 06/01/16 20:00 97.2 104 18 146/80 96 06/01/16 20:00 96 06/01/16 16:00 98.3 82 14 122/68 97 I/O 06/01/16 06/01/16 06/01/16 06/02/16 06/02/16 06/02/16 07:00 15:00 23:00 07:00 15:00 23:00 Intake Total 650 ml Balance 650 ml Intake Oral 650 ml # Voids 2 5 5 # Bowel Movements 0 0 Objective Remarks GENERAL: Somewhat dishevelled patient. CARDIOVASCULAR: Regular rate and rhythm without murmurs, gallops, or rubs. RESPIRATORY: Breath sounds equal bilaterally. No accessory muscle use. GASTROINTESTINAL: Abdomen soft, non-tender, nondistended. EXTREMITIES: No cyanosis, or edema. NEUROLOGICAL: Awake, alert and oriented to self only. She has right sided upper and lower extremity weakness 3 out of 5. Procedures None A/P Problem List: (1) Basal ganglia hemorrhage Status: Acute (2) Hemiparesis affecting right side as late effect of cerebrovascular accident (CVA) Status: Acute (3) Hypertensive emergency Status: Resolved (4) Metabolic acidosis Status: Resolved (5) UTI (urinary tract infection) Status: Resolved Assessment and Plan -Left basal ganglia bleed with 4mm MLS with Right hemiparesis-NS Dr. Venegas has evaluated the patient. The bleed has been stable on repeat head CT. No surgery needed. -Alcohol and cocaine abuse dependence - patient has been counseled. -Hypertension-well controlled. cont norvasc 10 mg daily. metoprolol 50 mg by mouth every 12 and lisinopril as well. Vasotec PRN for SBP >160 -Tobacco abuse -Transaminitis and chronic HCV - liver ultrasound showed fatty infiltration -UTI, e. coli-treated. -Thrombocytopenia-secondary to alcohol abuse-s/p platelet transfusion 05/10/16 with improvement in platelet count - 05/14 thrombocytopenia resolved. -Right arm pain - cont Neurontin for right arm neuropathic pain -Candidal rash -improved. Continue Diflucan topical. continue frequent position changes. -Anxiety. Seroquel low-dose initiated on 05/27. Mood seems OK. -Bilateral SCDs Discharge Planning Will need placement due to right sided paresis which is not likely to have further improvement. She appears to have poor social support. I discussed with case management. She has been unable to sign papers for [facility]. Apparently she has parents in town but we have not been able to get in touch with them. Case management will follow up. I agree with physical therapist assessment, the patient certainly need long-term care. Mehnaz Duval MD Jun 02, 2016 14:28
[2016-06-02] MEDS: QUEtiapine FUMARATE 25 MG TAB PO SCH (20:29)
[2016-06-03] VITALS (7 sets, daily range): BP systolic 108–138; BP diastolic 66–75; PULSE 69–92; RESP 16–20; TEMP 97–98.3; O2SAT 94–96
[2016-06-03] MEDS: NYSTATIN 100,000 UNIT/GM CREAM 15 GM TOPICAL SCH ×4 (01:06→18:51)
[2016-06-03] MEDS: POTASSIUM PHOSPHATE/SODIUM PHOSPHATE 250 MG TAB PO SCH ×3 (01:18→18:27)
[2016-06-03] MEDS: CHLORHEXIDINE GLUCONATE 2 % 1 PACK (2 CLOTHS) TOP SCH (04:00)
[2016-06-03] MEDS: LISINOPRIL 20 MG TAB PO SCH (09:00)
[2016-06-03] MEDS: THIAMINE HCL 100 MG TAB PO SCH (10:15)
[2016-06-03] MEDS: METOPROLOL TARTRATE 25 MG TAB PO SCH ×2 (10:15→21:15)
[2016-06-03] MEDS: GABAPENTIN 100 MG CAP PO SCH ×3 (10:15→18:27)
[2016-06-03] MEDS: ACETAMINOPHEN 325 MG TAB PO PRN (10:15)
--- NOTE | 2016-06-03 12:56 | HHI.PR ---
Subjective Remarks No change in neurological status. She is more awake and alert today but still gets confused and memory issues persist. The patient's parents were at the bedside. They report that she was adopted. They report that she is a member of the [employer] in [place]. Objective Vitals Vital Signs Date Time Temp Pulse Resp B/P Pulse Ox O2 Delivery O2 Flow Rate FiO2 06/03/16 11:15 19 06/03/16 09:00 98.1 91 18 127/74 94 06/03/16 04:00 97.0 88 20 136/70 96 06/03/16 00:00 97.4 92 20 138/72 96 06/02/16 20:00 97.3 98 20 141/73 96 06/02/16 20:00 83 06/02/16 15:43 99.4 84 18 123/74 94 I/O 06/02/16 06/02/16 06/02/16 06/03/16 06/03/16 06/03/16 07:00 15:00 23:00 07:00 15:00 23:00 Intake Total 650 ml 240 ml 700 ml Balance 650 ml 240 ml 700 ml Intake Oral 650 ml 240 ml 700 ml # Voids 5 4 5 # Bowel Movements 0 Objective Remarks GENERAL: Somewhat dishevelled patient. CARDIOVASCULAR: Regular rate and rhythm without murmurs, gallops, or rubs. RESPIRATORY: Breath sounds equal bilaterally. No accessory muscle use. GASTROINTESTINAL: Abdomen soft, non-tender, nondistended. EXTREMITIES: No cyanosis, or edema. NEUROLOGICAL: Awake, alert and oriented to self only. She has right sided upper and lower extremity weakness 1 out of 5. Procedures None A/P Problem List: (1) Basal ganglia hemorrhage Status: Acute (2) Hemiparesis affecting right side as late effect of cerebrovascular accident (CVA) Status: Acute (3) Hypertensive emergency Status: Resolved (4) Metabolic acidosis Status: Resolved (5) UTI (urinary tract infection) Status: Resolved Assessment and Plan -Left basal ganglia bleed with 4mm MLS with Right hemiparesis-NS Dr. Venegas has evaluated the patient. The bleed has been stable on repeat head CT. No surgery needed. She is left with significant right sided paralysis, memory and cognitive impairment. -Alcohol and cocaine abuse dependence - patient previously counseled. -Hypertension-well controlled. cont norvasc 10 mg daily. metoprolol 50 mg by mouth every 12 and lisinopril as well. Vasotec PRN for SBP >160 -Tobacco abuse -Transaminitis and chronic HCV - liver ultrasound showed fatty infiltration -UTI, e. coli-treated. -Thrombocytopenia-secondary to alcohol abuse-s/p platelet transfusion 05/10/16 with improvement in platelet count - 05/14 thrombocytopenia resolved. -Right arm pain - cont Neurontin for right arm neuropathic pain -Candidal rash -improved. Continue Diflucan topical. continue frequent position changes. -Anxiety. Seroquel low-dose initiated on 05/27. Mood seems OK. -Bilateral SCDs Discharge Planning Patient needs placement, likely long-term. Discussed with case management. [facility] will come and discuss with the family. She is reportedly a member of the [employer] in [place]. I agree with physical therapist assessment, the patient certainly need long- term care. Mehnaz Duval MD Jun 03, 2016 12:56
[2016-06-03] MEDS: SODIUM CHLORIDE 0.9% FLUSH 5 ML FLUSH IVF SCH ×2 (18:52→21:15)
[2016-06-03] MEDS: QUEtiapine FUMARATE 25 MG TAB PO SCH (21:14)
[2016-06-04] VITALS (7 sets, daily range): BP systolic 91–140; BP diastolic 58–74; PULSE 70–85; RESP 16–20; TEMP 96.7–99.2; O2SAT 94–97
[2016-06-04] MEDS: POTASSIUM PHOSPHATE/SODIUM PHOSPHATE 250 MG TAB PO SCH ×3 (00:08→17:32)
[2016-06-04] MEDS: LORazepam 1 MG TAB PO PRN ×2 (00:08→20:31)
[2016-06-04] MEDS: NYSTATIN 100,000 UNIT/GM CREAM 15 GM TOPICAL SCH ×4 (00:08→17:32)
[2016-06-04] MEDS: CHLORHEXIDINE GLUCONATE 2 % 1 PACK (2 CLOTHS) TOP SCH (04:00)
[2016-06-04] MEDS: GABAPENTIN 100 MG CAP PO SCH ×3 (08:45→17:32)
[2016-06-04] MEDS: METOPROLOL TARTRATE 25 MG TAB PO SCH ×2 (08:46→20:32)
[2016-06-04] MEDS: THIAMINE HCL 100 MG TAB PO SCH (08:46)
[2016-06-04] MEDS: SODIUM CHLORIDE 0.9% FLUSH 5 ML FLUSH IVF SCH ×2 (08:48→20:32)
[2016-06-04] MEDS: LISINOPRIL 20 MG TAB PO SCH (08:52)
--- NOTE | 2016-06-04 14:24 | HHI.PR ---
Subjective Remarks No change in neurological status. She is awake and alert. Still having some issues with memory. Objective Vitals Vital Signs Date Time Temp Pulse Resp B/P Pulse Ox O2 Delivery O2 Flow Rate FiO2 06/04/16 12:09 96.8 70 20 91/58 94 06/04/16 11:06 77 06/04/16 08:00 96.8 81 20 117/74 97 06/04/16 04:00 98.3 85 16 105/65 97 06/04/16 00:00 98.8 77 16 128/74 95 06/03/16 20:00 98.3 83 16 124/75 96 06/03/16 20:00 84 06/03/16 16:34 97.0 78 18 123/66 95 I/O 06/03/16 06/03/16 06/03/16 06/04/16 06/04/16 06/04/16 07:00 15:00 23:00 07:00 15:00 23:00 Intake Total 700 ml 360 ml 480 ml 120 ml 840 ml Output Total 0 ml 0 ml Balance 700 ml 360 ml 480 ml 120 ml 840 ml Intake Oral 700 ml 360 ml 480 ml 120 ml 840 ml Stool Total 0 ml 0 ml # Voids 5 4 5 4 3 # Bowel Movements 1 Objective Remarks GENERAL: Somewhat dishevelled patient. CARDIOVASCULAR: Regular rate and rhythm without murmurs, gallops, or rubs. RESPIRATORY: Breath sounds equal bilaterally. No accessory muscle use. GASTROINTESTINAL: Abdomen soft, non-tender, nondistended. EXTREMITIES: No cyanosis, or edema. NEUROLOGICAL: Awake, alert and oriented to self only. She has right sided upper and lower extremity weakness 1 out of 5. Procedures None A/P Problem List: (1) Basal ganglia hemorrhage Status: Acute (2) Hemiparesis affecting right side as late effect of cerebrovascular accident (CVA) Status: Acute (3) Hypertensive emergency Status: Resolved (4) Metabolic acidosis Status: Resolved (5) UTI (urinary tract infection) Status: Resolved Assessment and Plan -Left basal ganglia bleed with 4mm MLS with Right hemiparesis-NS Dr. Venegas has evaluated the patient. The bleed has been stable on repeat head CT. No surgery needed. She is left with significant right sided paralysis, memory and cognitive impairment. -Alcohol and cocaine abuse dependence - patient previously counseled. -Hypertension-well controlled. cont norvasc 10 mg daily. metoprolol 50 mg by mouth every 12 and lisinopril as well. Vasotec PRN for SBP >160 -Tobacco abuse -Transaminitis and chronic HCV - liver ultrasound showed fatty infiltration -UTI, e. coli-treated. -Thrombocytopenia-secondary to alcohol abuse-s/p platelet transfusion 05/10/16 with improvement in platelet count - 05/14 thrombocytopenia resolved. -Right arm pain - cont Neurontin for right arm neuropathic pain -Candidal rash -improved. Continue Diflucan topical. continue frequent position changes. -Anxiety. Seroquel low-dose initiated on 05/27. Mood seems OK. -Bilateral SCDs Discharge Planning Patient needs placement, likely long-term. Case management working on placement. I agree with physical therapist assessment, the patient certainly need long- term care. Mehnaz Duval MD Jun 04, 2016 14:24
[2016-06-04] MEDS ORDERED: LISI20 PO (14:27)
[2016-06-04] MEDS ORDERED: QUET25 PO (14:27)
[2016-06-04] MEDS ORDERED: METO25 PO (14:27)
[2016-06-04] MEDS ORDERED: AMLO10 PO (14:27)
[2016-06-04] MEDS ORDERED: GABA100C4 PO (14:27)
[2016-06-04] MEDS: ACETAMINOPHEN 325 MG TAB PO PRN (18:36)
[2016-06-04] MEDS: QUEtiapine FUMARATE 25 MG TAB PO SCH (20:32)
[2016-06-05] VITALS: BP 135/71; PULSE 71; RESP 16; TEMP 96.8; O2SAT 92
[2016-06-05] MEDS: NYSTATIN 100,000 UNIT/GM CREAM 15 GM TOPICAL SCH ×4 (00:01→16:53)
[2016-06-05] MEDS: POTASSIUM PHOSPHATE/SODIUM PHOSPHATE 250 MG TAB PO SCH ×3 (00:01→16:42)
[2016-06-05] MEDS: CHLORHEXIDINE GLUCONATE 2 % 1 PACK (2 CLOTHS) TOP SCH (03:14)
[2016-06-05 08:18] VITALS: BP 134/81; PULSE 86; RESP 18; TEMP 96.5; O2SAT 96
[2016-06-05] MEDS: SODIUM CHLORIDE 0.9% FLUSH 5 ML FLUSH IVF SCH ×2 (09:00→20:01)
[2016-06-05] MEDS: THIAMINE HCL 100 MG TAB PO SCH (09:18)
[2016-06-05] MEDS: METOPROLOL TARTRATE 25 MG TAB PO SCH ×2 (09:18→20:01)
[2016-06-05] MEDS: GABAPENTIN 100 MG CAP PO SCH ×3 (09:19→16:42)
[2016-06-05] MEDS: LISINOPRIL 20 MG TAB PO SCH (09:19)
--- NOTE | 2016-06-05 11:15 | HHI.PR ---
Subjective Remarks Seen for CVA. Complains of slight headache. Discussed with RN, still with confusion. Objective Vitals Vital Signs Date Time Temp Pulse Resp B/P Pulse Ox O2 Delivery O2 Flow Rate FiO2 06/05/16 08:18 96.5 86 18 134/81 96 06/05/16 00:00 96.8 71 16 135/71 92 06/04/16 20:00 96.7 82 16 140/73 95 06/04/16 15:51 99.2 79 20 109/72 97 06/04/16 12:09 96.8 70 20 91/58 94 I/O 06/04/16 06/04/16 06/04/16 06/05/16 06/05/16 06/05/16 07:00 15:00 23:00 07:00 15:00 23:00 Intake Total 120 ml 840 ml 480 ml 240 ml Output Total 0 ml 1 ml 0 ml Balance 120 ml 840 ml 479 ml 240 ml Intake Oral 120 ml 840 ml 480 ml 240 ml Stool Total 0 ml 1 ml 0 ml # Voids 4 5 4 6 Objective Remarks GENERAL: Well-developed in no distress SKIN: Warm and dry. HEAD: Atraumatic. Normocephalic. EYES: Pupils equal and round. No scleral icterus. No injection or drainage. ENT: No nasal bleeding or discharge. Mucous membranes pink and moist. NECK: Trachea midline. No JVD. CARDIOVASCULAR: Regular rate and rhythm. RESPIRATORY: No accessory muscle use. Clear to auscultation. Breath sounds equal bilaterally. GASTROINTESTINAL: Abdomen soft, non-tender, nondistended. Hepatic and splenic margins not palpable. MUSCULOSKELETAL: Extremities without clubbing, cyanosis, or edema. No obvious deformities. NEUROLOGICAL: Awake and alert. Slight right facial droop with weakness right upper > right lower Procedures None A/P Problem List: (1) Basal ganglia hemorrhage Status: Acute (2) Hemiparesis affecting right side as late effect of cerebrovascular accident (CVA) Status: Acute (3) Hypertensive emergency Status: Resolved (4) Metabolic acidosis Status: Resolved (5) UTI (urinary tract infection) Status: Resolved Assessment and Plan -Left basal ganglia bleed with 4mm MLS with Right hemiparesis secondary to cocaine and uncontrolled hypertension- NS Dr. Venegas has evaluated the patient. The bleed has been stable on repeat head CT. No surgery needed. She is left with significant right sided paralysis, memory and cognitive impairment. -Alcohol and cocaine abuse dependence - patient previously counseled. -Hypertension-well controlled. cont norvasc 10 mg daily. metoprolol 50 mg by mouth every 12 and lisinopril as well. Vasotec PRN for SBP >160 -Tobacco abuse -Transaminitis and chronic HCV - liver ultrasound showed fatty infiltration -UTI, e. coli-treated. -Thrombocytopenia-secondary to alcohol abuse-s/p platelet transfusion 05/10/16 with improvement in platelet count - 05/14 thrombocytopenia resolved. -Right arm pain - cont Neurontin for right arm neuropathic pain -Candidal rash -improved. Continue nystatin topical and frequent position changes. -Anxiety. Seroquel low-dose initiated on 05/27. Mood seems OK. -DVT prophylaxis with Bilateral SCDs. Pharmacological prophylaxis contraindicated secondary to cerebral bleed Discharge Planning Patient needs placement, likely long-term. Case management working on placement. Walter Gamboa MD Jun 05, 2016 11:15
[2016-06-05] MEDS ORDERED: LORA-474 PO (11:17)
--- NOTE | 2016-06-05 11:17 | HHI.DCPOC ---
Discharge Care Plan Diagnosis: (1) Basal ganglia hemorrhage Your Health Problems Are: Difficulty with ADL Exercise Tolerance Goals to Promote Your Health * To prevent worsening of your condition and complications * To maintain your health at the optimal level Directions to Meet Your Goals Take your medications as prescribed Follow your dietary instruction Follow activity as directed Keep your appointments as scheduled Take your immunizations and boosters as scheduled If your symptoms worsen call your PCP, if no PCP go to Urgent Care Center or Emergency Room Smoking is Dangerous to Your Health. Avoid second hand smoke Call the 24-hour hour crisis hotline for domestic abuse at Walter Gamboa MD Jun 05, 2016 11:17
[2016-06-05 12:00] VITALS: BP 113/63; PULSE 79; RESP 18; TEMP 97.1; O2SAT 97
[2016-06-05 16:00] VITALS: BP 130/71; PULSE 77; RESP 18; TEMP 97.1; O2SAT 98
[2016-06-05] MEDS: LORazepam 1 MG TAB PO PRN (16:42)
[2016-06-05] MEDS: QUEtiapine FUMARATE 25 MG TAB PO SCH (20:01)
[2016-06-05 21:50] VITALS: BP 135/81; PULSE 89; RESP 19; TEMP 97; O2SAT 98
[2016-06-06] VITALS (7 sets, daily range): BP systolic 90–140; BP diastolic 50–81; PULSE 80–115; RESP 17–19; TEMP 96.5–98.3; O2SAT 94–98
[2016-06-06] MEDS: POTASSIUM PHOSPHATE/SODIUM PHOSPHATE 250 MG TAB PO SCH (00:16)
[2016-06-06] MEDS: CHLORHEXIDINE GLUCONATE 2 % 1 PACK (2 CLOTHS) TOP SCH (04:00)
[2016-06-06] MEDS: NYSTATIN 100,000 UNIT/GM CREAM 15 GM TOPICAL SCH ×4 (06:00→23:38)
[2016-06-06] MEDS: LISINOPRIL 20 MG TAB PO SCH (09:00)
[2016-06-06] MEDS: METOPROLOL TARTRATE 25 MG TAB PO SCH ×2 (09:00→20:03)
[2016-06-06] MEDS: SODIUM CHLORIDE 0.9% FLUSH 5 ML FLUSH IVF SCH ×2 (09:00→20:04)
[2016-06-06 09:03] LABS: BICARBONATE 23.3 MEQ/L (21.0-32.0); MAGNESIUM 2.3 MG/DL (1.5-2.5); POTASSIUM 3.7 MEQ/L (3.5-5.1)
[2016-06-06] MEDS: LORazepam 1 MG TAB PO PRN ×2 (09:42→20:04)
[2016-06-06] MEDS: THIAMINE HCL 100 MG TAB PO SCH (09:43)
[2016-06-06] MEDS: GABAPENTIN 100 MG CAP PO SCH ×3 (09:43→17:17)
[2016-06-06] MEDS: POTASSIUM CHLORIDE 10 MEQ CONTROLLED RELEASE TAB PO SCH (10:00)
--- NOTE | 2016-06-06 11:31 | HHI.PR ---
Subjective Remarks F/u CVA. Denies headache or dizziness. She is less confused today oriented to person and place. Discussed with RN Objective Vitals Vital Signs Date Time Temp Pulse Resp B/P Pulse Ox O2 Delivery O2 Flow Rate FiO2 06/06/16 10:24 90/50 06/06/16 08:19 96.8 96 18 115/74 98 06/06/16 05:00 98.0 100 17 125/80 97 06/06/16 00:11 97.4 80 18 130/76 97 06/05/16 21:50 97.0 89 19 135/81 98 06/05/16 16:00 97.1 77 18 130/71 98 06/05/16 12:00 97.1 79 18 113/63 97 I/O 06/05/16 06/05/16 06/05/16 06/06/16 06/06/16 06/06/16 07:00 15:00 23:00 07:00 15:00 23:00 Intake Total 240 ml 960 ml 700 ml 800 ml Output Total 0 ml Balance 240 ml 960 ml 700 ml 800 ml Intake Oral 240 ml 960 ml 700 ml 800 ml Stool Total 0 ml # Voids 6 5 2 3 # Bowel Movements 0 0 0 Result Diagram: 06/06/16 0808 Objective Remarks GENERAL: Well-developed in no distress SKIN: Warm and dry. HEAD: Atraumatic. Normocephalic. EYES: Pupils equal and round. No scleral icterus. No injection or drainage. ENT: No nasal bleeding or discharge. Mucous membranes pink and moist. NECK: Trachea midline. No JVD. CARDIOVASCULAR: Regular rate and rhythm. RESPIRATORY: No accessory muscle use. Clear to auscultation. Breath sounds equal bilaterally. GASTROINTESTINAL: Abdomen soft, non-tender, nondistended. Hepatic and splenic margins not palpable. MUSCULOSKELETAL: Extremities without clubbing, cyanosis, or edema. No obvious deformities. NEUROLOGICAL: Awake and alert. Slight right facial droop with weakness right upper > right lower extremities Procedures None A/P Problem List: (1) Basal ganglia hemorrhage Status: Acute (2) Hemiparesis affecting right side as late effect of cerebrovascular accident (CVA) Status: Acute (3) Hypertensive emergency Status: Resolved (4) Metabolic acidosis Status: Resolved (5) UTI (urinary tract infection) Status: Resolved Assessment and Plan -Left basal ganglia bleed with 4mm MLS with Right hemiparesis secondary to cocaine and uncontrolled hypertension- NS Dr. Venegas has evaluated the patient. The bleed has been stable on repeat head CT. No surgery needed. She is left with significant right sided paralysis, memory and cognitive impairment. -Alcohol and cocaine abuse dependence - patient previously counseled. -Hypertension-well controlled. cont norvasc 10 mg daily. metoprolol 50 mg by mouth every 12 and lisinopril as well. Vasotec PRN for SBP >160 -Hypokalemia and hypophosphatemia. Improved on repeat labs. Discontinue K-Phos -Tobacco abuse -Transaminitis and chronic HCV - liver ultrasound showed fatty infiltration -UTI, e. coli-treated. -Thrombocytopenia-secondary to alcohol abuse-s/p platelet transfusion 05/10/16 with improvement in platelet count - 05/14 thrombocytopenia resolved. -Right arm pain - cont Neurontin for right arm neuropathic pain -Candidal rash -improved. Continue nystatin topical and frequent position changes. -Anxiety. Seroquel low-dose initiated on 05/27. Mood seems OK. -DVT prophylaxis with Bilateral SCDs. Pharmacological prophylaxis contraindicated secondary to cerebral bleed Discharge Planning Patient needs placement, likely long-term. Case management working on placement. Walter Gamboa MD Jun 06, 2016 11:31
[2016-06-06] MEDS: QUEtiapine FUMARATE 25 MG TAB PO SCH (20:04)
[2016-06-07 00:40] VITALS: BP 138/88; PULSE 110; RESP 17; TEMP 97.7; O2SAT 95
[2016-06-07] MEDS: CHLORHEXIDINE GLUCONATE 2 % 1 PACK (2 CLOTHS) TOP SCH ×2 (04:00→22:55)
[2016-06-07] MEDS: NYSTATIN 100,000 UNIT/GM CREAM 15 GM TOPICAL SCH ×4 (05:31→23:05)
[2016-06-07 08:00] VITALS: BP 111/74; PULSE 95; RESP 20; TEMP 97.4; O2SAT 97
[2016-06-07] MEDS: GABAPENTIN 100 MG CAP PO SCH ×3 (09:06→16:54)
[2016-06-07] MEDS: LISINOPRIL 20 MG TAB PO SCH (09:06)
[2016-06-07] MEDS: POTASSIUM CHLORIDE 10 MEQ CONTROLLED RELEASE TAB PO SCH (09:06)
[2016-06-07] MEDS: METOPROLOL TARTRATE 25 MG TAB PO SCH ×2 (09:06→22:55)
[2016-06-07] MEDS: LORazepam 1 MG TAB PO PRN ×2 (09:06→22:56)
[2016-06-07] MEDS: THIAMINE HCL 100 MG TAB PO SCH (09:06)
[2016-06-07] MEDS: SODIUM CHLORIDE 0.9% FLUSH 5 ML FLUSH IVF SCH ×2 (09:11→23:05)
--- NOTE | 2016-06-07 10:06 | HHI.PR ---
Subjective Remarks Seen for encephalopathy. Still confused and oriented to person only. No agitation. Denies headache or dizziness. Discussed with RN Objective Vitals Vital Signs Date Time Temp Pulse Resp B/P Pulse Ox O2 Delivery O2 Flow Rate FiO2 06/07/16 08:00 97.4 95 20 111/74 97 06/07/16 00:40 97.7 110 17 138/88 95 06/06/16 21:30 97.1 115 19 140/81 94 06/06/16 16:38 96.5 92 18 114/80 98 06/06/16 12:00 98.3 94 18 130/75 98 06/06/16 10:24 90/50 I/O 06/06/16 06/06/16 06/06/16 06/07/16 06/07/16 06/07/16 07:00 15:00 23:00 07:00 15:00 23:00 Intake Total 800 ml 720 ml 900 ml 800 ml Output Total 500 ml Balance 800 ml 720 ml 900 ml 300 ml Intake Oral 800 ml 720 ml 900 ml 800 ml Output Urine Total 500 ml # Voids 3 3 2 3 # Bowel Movements 0 1 0 0 Result Diagram: 06/06/16 0808 Objective Remarks GENERAL: Well-developed in no distress SKIN: Warm and dry. HEAD: Atraumatic. Normocephalic. EYES: Pupils equal and round. No scleral icterus. No injection or drainage. ENT: No nasal bleeding or discharge. Mucous membranes pink and moist. NECK: Trachea midline. No JVD. CARDIOVASCULAR: Regular rate and rhythm. RESPIRATORY: No accessory muscle use. Clear to auscultation. Breath sounds equal bilaterally. GASTROINTESTINAL: Abdomen soft, non-tender, nondistended. MUSCULOSKELETAL: Extremities without clubbing, cyanosis, or edema. No obvious deformities. NEUROLOGICAL: Awake and alert. Oriented to person only. Slight right facial droop with weakness right upper > right lower extremities. Withdraws right lower extremity from pain Procedures None A/P Problem List: (1) Basal ganglia hemorrhage Status: Acute (2) Hemiparesis affecting right side as late effect of cerebrovascular accident (CVA) Status: Acute (3) Hypertensive emergency Status: Resolved (4) Metabolic acidosis Status: Resolved (5) UTI (urinary tract infection) Status: Resolved Assessment and Plan -Left basal ganglia bleed with 4mm MLS with Right hemiparesis secondary to cocaine and uncontrolled hypertension- NS Dr. Venegas has evaluated the patient. The bleed has been stable on repeat head CT. No surgery needed. She is left with significant right sided paralysis, memory and cognitive impairment. -Alcohol and cocaine abuse dependence - patient previously counseled. -Hypertension-well controlled. BP readings reviewed and have been stable. Continue norvasc 10 mg daily, metoprolol 50 mg by mouth every 12 and lisinopril as well. Vasotec PRN for SBP >160 -Hypokalemia and hypophosphatemia. Improved on repeat labs. Discontinue K- Phos. Repeat BMP, magnesium and phosphorus 06/09/16 -Tobacco abuse -Transaminitis and chronic HCV - liver ultrasound showed fatty infiltration -UTI, e. coli-treated. -Thrombocytopenia-secondary to alcohol abuse-s/p platelet transfusion 05/10/16 with improvement in platelet count - 05/14 thrombocytopenia resolved. -Right arm pain - cont Neurontin for right arm neuropathic pain -Candidal rash -improved. Continue nystatin topical and frequent position changes. -Anxiety. Seroquel low-dose initiated on 05/27. Mood seems OK. -DVT prophylaxis with Bilateral SCDs. Pharmacological prophylaxis contraindicated secondary to cerebral bleed Discharge Planning Patient needs placement, likely long-term. Case management working on placement. Walter Gamboa MD Jun 07, 2016 10:06
[2016-06-07 11:08] VITALS: PULSE 84
[2016-06-07 12:00] VITALS: BP 104/55; PULSE 79; RESP 20; TEMP 96.4; O2SAT 98
[2016-06-07 16:00] VITALS: BP 101/65; PULSE 79; RESP 20; TEMP 97.1; O2SAT 98
[2016-06-07 20:00] VITALS: BP 121/75; PULSE 92; RESP 20; TEMP 98.9; O2SAT 97
[2016-06-07] MEDS: QUEtiapine FUMARATE 25 MG TAB PO SCH (22:55)
[2016-06-08] VITALS (7 sets, daily range): BP systolic 104–132; BP diastolic 58–94; PULSE 76–96; RESP 14–20; TEMP 96.3–97.9; O2SAT 94–98
[2016-06-08] MEDS: NYSTATIN 100,000 UNIT/GM CREAM 15 GM TOPICAL SCH ×4 (04:01→22:05)
[2016-06-08] MEDS: GABAPENTIN 100 MG CAP PO SCH ×3 (11:26→16:30)
[2016-06-08] MEDS: LISINOPRIL 20 MG TAB PO SCH (11:27)
[2016-06-08] MEDS: POTASSIUM CHLORIDE 10 MEQ CONTROLLED RELEASE TAB PO SCH (11:28)
[2016-06-08] MEDS: THIAMINE HCL 100 MG TAB PO SCH (11:28)
[2016-06-08] MEDS: METOPROLOL TARTRATE 25 MG TAB PO SCH ×2 (11:28→21:59)
[2016-06-08] MEDS: SODIUM CHLORIDE 0.9% FLUSH 5 ML FLUSH IVF SCH ×2 (11:29→21:59)
[2016-06-08] MEDS: ACETAMINOPHEN 325 MG TAB PO PRN (11:42)
--- NOTE | 2016-06-08 12:44 | HHI.PR ---
Subjective Remarks Seen for abdominal pain. States doesn't feel well ate something bad during breakfast. She developed transient lower abdominal sharp severe pain without radiation, nausea, vomiting, UTI symptoms, constipation and diarrhea. Discussed with RN Objective Vitals Vital Signs Date Time Temp Pulse Resp B/P Pulse Ox O2 Delivery O2 Flow Rate FiO2 06/08/16 09:14 96.3 82 14 130/76 98 06/08/16 06:14 97.3 81 20 119/76 97 06/08/16 00:14 97.4 96 20 132/71 94 06/07/16 20:00 98.9 92 20 121/75 97 06/07/16 16:00 97.1 79 20 101/65 98 I/O 06/07/16 06/07/16 06/07/16 06/08/16 06/08/16 06/08/16 07:00 15:00 23:00 07:00 15:00 23:00 Intake Total 800 ml 240 ml Output Total 500 ml Balance 300 ml 240 ml Intake Oral 800 ml 240 ml Output Urine Total 500 ml # Voids 3 2 1 4 # Bowel Movements 0 1 0 Result Diagram: 06/06/16 0808 Objective Remarks GENERAL: Well-developed in no distress SKIN: Warm and dry. HEAD: Atraumatic. Normocephalic. EYES: Pupils equal and round. No scleral icterus. No injection or drainage. ENT: No nasal bleeding or discharge. Mucous membranes pink and moist. NECK: Trachea midline. No JVD. CARDIOVASCULAR: Regular rate and rhythm. RESPIRATORY: No accessory muscle use. Clear to auscultation. Breath sounds equal bilaterally. GASTROINTESTINAL: Abdomen soft, non-tender, nondistended. No CVA tenderness MUSCULOSKELETAL: Extremities without clubbing, cyanosis, or edema. No obvious deformities. NEUROLOGICAL: Awake and alert. Oriented to person and place only. Slight right facial droop with weakness right upper > right lower extremities. Withdraws right lower extremity from pain Procedures None A/P Problem List: (1) Basal ganglia hemorrhage Status: Acute (2) Hemiparesis affecting right side as late effect of cerebrovascular accident (CVA) Status: Acute (3) Hypertensive emergency Status: Resolved (4) Metabolic acidosis Status: Resolved (5) UTI (urinary tract infection) Status: Resolved Assessment and Plan -Left basal ganglia bleed with 4mm MLS with Right hemiparesis secondary to cocaine and uncontrolled hypertension- NS Dr. Venegas has evaluated the patient. The bleed has been stable on repeat head CT. No surgery needed. She is left with significant right sided paralysis, memory and cognitive impairment. -Alcohol and cocaine abuse dependence - patient previously counseled. -Hypertension-well controlled. BP readings reviewed and have been stable. Continue norvasc 10 mg daily, metoprolol 50 mg by mouth every 12 and lisinopril as well. Vasotec PRN for SBP >160 -Hypokalemia and hypophosphatemia. Improved on repeat labs. Discontinue K- Phos. Repeat BMP, magnesium and phosphorus 06/09/16 -Tobacco abuse -Transaminitis and chronic HCV - liver ultrasound showed fatty infiltration -Abdominal pain. No fever and she is hemodynamically stable. Abdominal exam benign. Obtain screening labs with CBC, BMP and urinalysis history of Escherichia coli UTI status post treatment. Continue to monitor -Thrombocytopenia-secondary to alcohol abuse-s/p platelet transfusion 05/10/16 with improvement in platelet count - 05/14 thrombocytopenia resolved. -Right arm pain - cont Neurontin for right arm neuropathic pain -Candidal rash -improved. Continue nystatin topical and frequent position changes. -Anxiety. Seroquel low-dose initiated on 05/27. Mood seems OK. -DVT prophylaxis with Bilateral SCDs. Pharmacological prophylaxis contraindicated secondary to cerebral bleed Discharge Planning Patient needs placement, likely long-term. Case management working on placement. Walter Gamboa MD Jun 08, 2016 12:44
[2016-06-08 15:01] LABS: AUTOMATED NEUTROPHIL # 7.6 TH/MM3 (1.8-7.7); BASOPHIL # 0.1 TH/MM3 (0-0.2); BASOPHIL % 0.7 % (0.0-2.0); EOSINOPHIL # 0.2 TH/MM3 (0-0.4); EOSINOPHIL % 1.5 % (0.0-4.0); HEMATOCRIT 37.4 % (35.0-46.0); HEMO FLAGS DIFF FINAL; LYMPH % 18.5 % (9.0-44.0); MEAN CELL VOLUME 93.3 FL (80.0-100.0); MEAN CORPUSCULAR HEMOGLOBIN 31.2 PG (27.0-34.0); MEAN CORPUSCULAR HGB CONC 33.5 % (32.0-36.0); MONO % 8.5 % (0.0-8.0); NEUT % 70.8 % (16.0-70.0); PLATELET COUNT 327 TH/MM3 (150-450); RED BLOOD COUNT 4.01 MIL/MM3 (4.00-5.30); WHITE BLOOD COUNT 10.8 TH/MM3 (4.0-11.0)
[2016-06-08 15:18] LABS: MAGNESIUM 1.8 MG/DL (1.5-2.5); POTASSIUM 4.3 MEQ/L (3.5-5.1)
[2016-06-08 17:24] LABS: BACTERIA, URINE RARE /hpf; BLOOD, URINE NEG (NEG); COMMENT (UR) CULT NOT INDICATED; CULTURE IF INDICATED CULT NOT INDICATED; GLUCOSE,URINE NEG (NEG); HYALINE CAST, URINE 1 /lpf (RARE); KETONE, URINE NEG (NEG); NITRITE,URINE NEG (NEG); URINE COLOR YELLOW (YELLW/STRAW)
[2016-06-08] MEDS: QUEtiapine FUMARATE 25 MG TAB PO SCH (21:59)
[2016-06-08] MEDS: CHLORHEXIDINE GLUCONATE 2 % 1 PACK (2 CLOTHS) TOP SCH (21:59)
[2016-06-08] MEDS: LORazepam 1 MG TAB PO PRN (22:00)
[2016-06-09] VITALS (8 sets, daily range): BP systolic 93–128; BP diastolic 56–80; PULSE 66–99; RESP 14–22; TEMP 95–98.1; O2SAT 96–100
[2016-06-09] MEDS: LORazepam 1 MG TAB PO PRN ×2 (03:44→22:39)
[2016-06-09] MEDS: NYSTATIN 100,000 UNIT/GM CREAM 15 GM TOPICAL SCH ×3 (06:00→17:23)
[2016-06-09] MEDS: METOPROLOL TARTRATE 25 MG TAB PO SCH ×2 (09:00→22:39)
[2016-06-09] MEDS: LISINOPRIL 20 MG TAB PO SCH (09:00)
[2016-06-09] MEDS: SODIUM CHLORIDE 0.9% FLUSH 5 ML FLUSH IVF SCH ×2 (09:23→21:00)
[2016-06-09] MEDS: GABAPENTIN 100 MG CAP PO SCH ×3 (09:23→17:49)
[2016-06-09] MEDS: POTASSIUM CHLORIDE 10 MEQ CONTROLLED RELEASE TAB PO SCH (09:23)
--- NOTE | 2016-06-09 13:23 | HHI.PR ---
Subjective Remarks Seen for abd pain. Confused still with intermittent pain but not right now. No nausea tolerating po dw RN Objective Vitals Vital Signs Date Time Temp Pulse Resp B/P Pulse Ox O2 Delivery O2 Flow Rate FiO2 06/09/16 12:41 97.3 92 16 93/59 100 06/09/16 09:46 76 06/09/16 09:31 98.1 90 14 109/67 97 06/09/16 04:00 97.0 78 16 102/56 96 06/09/16 00:16 96.9 79 20 109/70 97 06/08/16 20:00 97.1 80 20 123/60 97 06/08/16 17:16 97.4 76 16 104/58 96 06/08/16 15:59 77 I/O 06/08/16 06/08/16 06/08/16 06/09/16 06/09/16 06/09/16 07:00 15:00 23:00 07:00 15:00 23:00 Intake Total 360 ml 300 ml 100 ml Balance 360 ml 300 ml 100 ml Intake Oral 360 ml 300 ml 100 ml # Voids 4 4 2 2 # Bowel Movements 0 Result Diagram: 06/08/16 1335 06/08/16 1335 Objective Remarks GENERAL: Well-developed in no distress SKIN: Warm and dry. HEAD: Atraumatic. Normocephalic. EYES: Pupils equal and round. No scleral icterus. No injection or drainage. ENT: No nasal bleeding or discharge. Mucous membranes pink and moist. NECK: Trachea midline. No JVD. CARDIOVASCULAR: Regular rate and rhythm. No murmur RESPIRATORY: No accessory muscle use. Clear to auscultation. Breath sounds equal bilaterally. GASTROINTESTINAL: Abdomen soft, non-tender, nondistended. No CVA tenderness MUSCULOSKELETAL: Extremities without clubbing, cyanosis, or edema. No obvious deformities. NEUROLOGICAL: Awake and alert. Oriented to person and place only. Slight right facial droop with weakness right upper > right lower extremities. Withdraws right lower extremity from pain Procedures None A/P Problem List: (1) Basal ganglia hemorrhage Status: Acute (2) Hemiparesis affecting right side as late effect of cerebrovascular accident (CVA) Status: Acute (3) Hypertensive emergency Status: Resolved (4) Metabolic acidosis Status: Resolved (5) UTI (urinary tract infection) Status: Resolved Assessment and Plan -Left basal ganglia bleed with 4mm MLS with Right hemiparesis secondary to cocaine and uncontrolled hypertension- NS Dr. Venegas has evaluated the patient. The bleed has been stable on repeat head CT. No surgery needed. She is left with significant right sided paralysis, memory and cognitive impairment. -Alcohol and cocaine abuse dependence - patient previously counseled. -Hypertension-well controlled. BP readings reviewed and have been stable. Continue norvasc 10 mg daily, metoprolol 50 mg by mouth every 12 and lisinopril as well. Vasotec PRN for SBP >160 -Hypokalemia and hypophosphatemia. Improved on repeat labs. Discontinue K- Phos. -Tobacco abuse -Transaminitis and chronic HCV - liver ultrasound showed fatty infiltration -Abdominal pain. No fever and she is hemodynamically stable. Abdominal exam benign. Screening labs with CBC, BMP and urinalysis negative. Ck lipase. Start GI prophylaxis. Continue to monitor -Thrombocytopenia-secondary to alcohol abuse-s/p platelet transfusion 05/10/16 with improvement in platelet count - 05/14 thrombocytopenia resolved. -Right arm pain - cont Neurontin for right arm neuropathic pain -Candidal rash -improved. Continue nystatin topical and frequent position changes. -Anxiety. Seroquel low-dose initiated on 05/27. Mood seems OK. -DVT prophylaxis with Bilateral SCDs. Pharmacological prophylaxis contraindicated secondary to cerebral bleed Discharge Planning Patient needs placement, likely long-term. Case management working on placement. Walter Gamboa MD Jun 09, 2016 13:23
[2016-06-09] MEDS: RANITIDINE HCL 150 MG TAB PO SCH ×2 (13:50→22:39)
[2016-06-09] MEDS: CALCIUM CARBONATE 500 MG CHEWABLE TAB CHEW PRN (13:51)
[2016-06-09] MEDS: QUEtiapine FUMARATE 25 MG TAB PO SCH (22:39)
[2016-06-10] VITALS: BP 112/71; PULSE 88; RESP 22; TEMP 96; O2SAT 91
[2016-06-10 04:00] VITALS: BP 115/70; PULSE 98; RESP 23; TEMP 96
[2016-06-10] MEDS: CHLORHEXIDINE GLUCONATE 2 % 1 PACK (2 CLOTHS) TOP SCH (04:00)
[2016-06-10] MEDS: NYSTATIN 100,000 UNIT/GM CREAM 15 GM TOPICAL SCH ×4 (05:30→17:29)
[2016-06-10 08:08] VITALS: BP 111/72; PULSE 90; RESP 18; TEMP 95.8; O2SAT 96
[2016-06-10] MEDS: LISINOPRIL 20 MG TAB PO SCH (09:55)
[2016-06-10] MEDS: RANITIDINE HCL 150 MG TAB PO SCH ×2 (09:55→20:12)
[2016-06-10] MEDS: SODIUM CHLORIDE 0.9% FLUSH 5 ML FLUSH IVF SCH ×2 (09:55→20:18)
[2016-06-10] MEDS: GABAPENTIN 100 MG CAP PO SCH ×3 (09:55→17:29)
[2016-06-10] MEDS: METOPROLOL TARTRATE 25 MG TAB PO SCH ×2 (09:55→20:17)
[2016-06-10] MEDS: POTASSIUM CHLORIDE 10 MEQ CONTROLLED RELEASE TAB PO SCH (09:55)
[2016-06-10 12:06] VITALS: BP 112/70; PULSE 82; RESP 16; TEMP 96.4; O2SAT 95
--- NOTE | 2016-06-10 14:05 | HHI.PR ---
Subjective Remarks Seen for abdominal pain. Currently denies pain tolerating diet. Positive bowel movement. Discussed with RN and family Objective Vitals Vital Signs Date Time Temp Pulse Resp B/P Pulse Ox O2 Delivery O2 Flow Rate FiO2 06/10/16 12:06 96.4 82 16 112/70 95 06/10/16 08:08 95.8 90 18 111/72 96 06/10/16 04:00 96.0 98 23 115/70 06/10/16 00:00 96.0 88 22 112/71 91 06/09/16 20:00 95.0 66 22 127/60 96 06/09/16 19:50 99 06/09/16 17:44 96.5 90 20 128/80 97 I/O 06/09/16 06/09/16 06/09/16 06/10/16 06/10/16 06/10/16 07:00 15:00 23:00 07:00 15:00 23:00 Intake Total 100 ml 240 ml 240 ml 0 ml Output Total 0 ml Balance 100 ml 240 ml 240 ml 0 ml Intake Oral 100 ml 240 ml 240 ml 0 ml Output Urine Total 0 ml # Voids 2 3 2 5 # Bowel Movements 1 Result Diagram: 06/08/16 1335 06/08/16 1335 Objective Remarks GENERAL: Well-developed in no distress SKIN: Warm and dry. HEAD: Atraumatic. Normocephalic. EYES: Pupils equal and round. No scleral icterus. No injection or drainage. ENT: No nasal bleeding or discharge. Mucous membranes pink and moist. NECK: Trachea midline. No JVD. CARDIOVASCULAR: Regular rate and rhythm. No murmur RESPIRATORY: No accessory muscle use. Clear to auscultation. Breath sounds equal bilaterally. GASTROINTESTINAL: Abdomen soft, non-tender, nondistended. No CVA tenderness MUSCULOSKELETAL: Extremities without clubbing, cyanosis, or edema. No obvious deformities. NEUROLOGICAL: Awake and alert. Oriented to person and place only. Slight right facial droop with weakness right upper > right lower extremities. Withdraws right lower extremity from pain. Speech is clearer Procedures None A/P Problem List: (1) Basal ganglia hemorrhage Status: Acute (2) Hemiparesis affecting right side as late effect of cerebrovascular accident (CVA) Status: Acute (3) Hypertensive emergency Status: Resolved (4) Metabolic acidosis Status: Resolved (5) UTI (urinary tract infection) Status: Resolved Assessment and Plan -Left basal ganglia bleed with 4mm MLS with Right hemiparesis secondary to cocaine and uncontrolled hypertension- NS Dr. Venegas has evaluated the patient. The bleed has been stable on repeat head CT. No surgery needed. She is left with significant right sided paralysis, memory and cognitive impairment. Stable -Alcohol and cocaine abuse dependence - patient previously counseled. -Hypertension-well controlled. BP readings reviewed and have been stable. Continue norvasc 10 mg daily, metoprolol 50 mg by mouth every 12 and lisinopril as well. Vasotec PRN for SBP >160 -Hypokalemia and hypophosphatemia. Improved on repeat labs. Discontinue K- Phos. -Tobacco abuse -Transaminitis and chronic HCV - liver ultrasound showed fatty infiltration -Abdominal pain. No fever and she is hemodynamically stable. Abdominal exam benign. Screening labs with CBC, BMP and urinalysis negative. Lipase normal. Continue GI prophylaxis. Continue to monitor -Thrombocytopenia-secondary to alcohol abuse-s/p platelet transfusion 05/10/16 with improvement in platelet count - 05/14 thrombocytopenia resolved. -Right arm pain - cont Neurontin for right arm neuropathic pain -Candidal rash -improved. Continue nystatin topical and frequent position changes. -Anxiety. Seroquel low-dose initiated on 05/27. Mood seems OK. -DVT prophylaxis with Bilateral SCDs. Pharmacological prophylaxis contraindicated secondary to cerebral bleed Discharge Planning Patient needs placement, likely long-term. Case management working on placement. Walter Gamboa MD Jun 10, 2016 14:05
[2016-06-10 16:07] VITALS: BP_SYST 102; BP_SYST 145; BP_DIAS 63; BP_DIAS 70; PULSE 70; PULSE 79; RESP 17; TEMP 97.4; O2SAT 96
[2016-06-10] MEDS: QUEtiapine FUMARATE 25 MG TAB PO SCH (20:12)
[2016-06-10] MEDS: LORazepam 1 MG TAB PO PRN (20:12)
[2016-06-10 20:15] VITALS: BP 94/61; PULSE 85; RESP 17; TEMP 96.5; O2SAT 92
[2016-06-11] VITALS (7 sets, daily range): BP systolic 93–118; BP diastolic 60–80; PULSE 88–101; RESP 17–19; TEMP 96–97.8; O2SAT 92–99
[2016-06-11] MEDS: CHLORHEXIDINE GLUCONATE 2 % 1 PACK (2 CLOTHS) TOP SCH ×2 (02:53→21:41)
[2016-06-11] MEDS: NYSTATIN 100,000 UNIT/GM CREAM 15 GM TOPICAL SCH ×5 (04:40→23:21)
[2016-06-11] MEDS: LISINOPRIL 20 MG TAB PO SCH (08:19)
[2016-06-11] MEDS: METOPROLOL TARTRATE 25 MG TAB PO SCH ×2 (08:19→20:25)
[2016-06-11] MEDS: RANITIDINE HCL 150 MG TAB PO SCH ×2 (08:19→20:25)
[2016-06-11] MEDS: GABAPENTIN 100 MG CAP PO SCH ×3 (08:19→17:35)
[2016-06-11] MEDS: POTASSIUM CHLORIDE 10 MEQ CONTROLLED RELEASE TAB PO SCH (08:19)
[2016-06-11] MEDS: SODIUM CHLORIDE 0.9% FLUSH 5 ML FLUSH IVF SCH ×2 (08:20→20:26)
--- NOTE | 2016-06-11 12:57 | HHI.PR ---
Subjective Remarks Follow-up for right hemiparesis and encephalopathy. The patient is a poor historian and rambles a lot about the nursing staff. She is complaining of some left upper quadrant discomfort. She denies any nausea, vomiting, diarrhea , constipation. She had normal bowel movement today. She's been eating and drinking well. No other complaints at this time. Objective Vitals Vital Signs Date Time Temp Pulse Resp B/P Pulse Ox O2 Delivery O2 Flow Rate FiO2 06/11/16 08:06 96.0 90 18 101/61 99 06/11/16 04:09 97.8 95 17 93/61 92 06/11/16 00:35 97.7 90 19 118/74 95 06/10/16 20:15 96.5 85 17 94/61 92 06/10/16 16:07 97.4 79 17 102/63 96 I/O 06/10/16 06/10/16 06/10/16 06/11/16 06/11/16 06/11/16 07:00 15:00 23:00 07:00 15:00 23:00 Intake Total 0 ml 480 ml 380 ml 380 ml Balance 0 ml 480 ml 380 ml 380 ml Intake Oral 0 ml 480 ml 380 ml 380 ml # Voids 5 4 2 3 # Bowel Movements 0 0 0 Result Diagram: 06/08/16 1335 06/08/16 1335 Objective Remarks GENERAL: Well-developed well-nourished. In no acute distress. SKIN: Warm and dry. No lesions noted. HEENT: Normocephalic. Pupils equal and round. Mucous membranes pink and moist. CARDIOVASCULAR: Regular rate and rhythm. No murmur appreciated. RESPIRATORY: No accessory muscle use. Clear to auscultation. Breath sounds equal bilaterally. GASTROINTESTINAL: Abdomen soft, non-tender, nondistended. Bowel sounds x4. MUSCULOSKELETAL: No obvious deformities. No clubbing or cyanosis. No edema. NEUROLOGICAL: Awake and alert. Right-sided weakness, right upper extremity worse than right lower. Right facial droop. Normal speech. PSYCHIATRIC: Odd mood and affect; insight and judgment fair to poor. Procedures None A/P Problem List: (1) Basal ganglia hemorrhage Status: Acute (2) Hemiparesis affecting right side as late effect of cerebrovascular accident (CVA) Status: Acute (3) Hypertensive emergency Status: Resolved (4) Metabolic acidosis Status: Resolved (5) UTI (urinary tract infection) Status: Resolved Assessment and Plan -Left basal ganglia bleed with 4mm MLS with Right hemiparesis secondary to cocaine and uncontrolled hypertension- NS Dr. Venegas has evaluated the patient. The bleed has been stable on repeat head CT. No surgery needed. She is left with significant right sided paralysis, memory and cognitive impairment. Stable -Alcohol and cocaine abuse dependence - patient previously counseled. -Hypertension-well controlled. BP readings reviewed and have been stable. Continue norvasc 10 mg daily, metoprolol 50 mg BID and lisinopril daily. Vasotec PRN for SBP >160 -Hypokalemia and hypophosphatemia. Improved on repeat labs. Resolved. -Tobacco abuse -Transaminitis and chronic HCV - liver ultrasound showed fatty infiltration -Abdominal pain. No fever and she is hemodynamically stable. Abdominal exam benign. Screening labs with CBC, BMP and urinalysis negative. Lipase normal. Continue GI prophylaxis. Continue to monitor -Thrombocytopenia-secondary to alcohol abuse-s/p platelet transfusion 05/10/16 with improvement in platelet count - 05/14 thrombocytopenia resolved. -Right arm pain - cont Neurontin for right arm neuropathic pain -Candidal rash -improved. Continue nystatin topical and frequent position changes. -Anxiety. Seroquel low-dose initiated on 05/27. Mood seems OK. -DVT prophylaxis with Bilateral SCDs. Pharmacological prophylaxis contraindicated secondary to cerebral bleed Discharge Planning The patient will need long-term care. Case management arranging. Anurag Yu Jun 11, 2016 12:57
[2016-06-11] MEDS: LORazepam 1 MG TAB PO PRN (20:25)
[2016-06-11] MEDS: QUEtiapine FUMARATE 25 MG TAB PO SCH (20:25)
[2016-06-12] VITALS (8 sets, daily range): BP systolic 92–148; BP diastolic 56–80; PULSE 71–88; RESP 16–18; TEMP 96.9–99; O2SAT 94–98
[2016-06-12] MEDS: NYSTATIN 100,000 UNIT/GM CREAM 15 GM TOPICAL SCH ×3 (05:08→17:40)
[2016-06-12] MEDS: RANITIDINE HCL 150 MG TAB PO SCH ×2 (08:29→20:46)
[2016-06-12] MEDS: GABAPENTIN 100 MG CAP PO SCH ×3 (08:29→17:08)
[2016-06-12] MEDS: METOPROLOL TARTRATE 25 MG TAB PO SCH ×2 (08:29→20:44)
[2016-06-12] MEDS: POTASSIUM CHLORIDE 10 MEQ CONTROLLED RELEASE TAB PO SCH (08:29)
[2016-06-12] MEDS: LISINOPRIL 20 MG TAB PO SCH (08:29)
[2016-06-12] MEDS: SODIUM CHLORIDE 0.9% FLUSH 5 ML FLUSH IVF SCH ×2 (08:30→20:46)
--- NOTE | 2016-06-12 12:34 | HHI.PR ---
Subjective Remarks Follow-up for right hemiparesis and encephalopathy. She has no acute complaints today. She isn't sleeping well. She isn't eating well. She denies any pain. Discussed with RN, no issues. Objective Vitals Vital Signs Date Time Temp Pulse Resp B/P Pulse Ox O2 Delivery O2 Flow Rate FiO2 06/12/16 12:15 96.9 73 18 92/56 94 06/12/16 10:35 71 06/12/16 08:29 97.1 88 16 128/73 94 06/12/16 04:08 97.3 81 17 148/80 95 06/12/16 00:31 97.4 82 17 122/74 95 06/11/16 20:18 96.3 96 18 112/80 99 06/11/16 16:08 96.6 95 18 115/60 98 06/11/16 13:40 101 I/O 06/11/16 06/11/16 06/11/16 06/12/16 06/12/16 06/12/16 06:59 14:59 22:59 06:59 14:59 22:59 Intake Total 380 ml 120 ml 1060 ml 380 ml Balance 380 ml 120 ml 1060 ml 380 ml Intake Oral 380 ml 120 ml 1060 ml 380 ml # Voids 3 4 2 2 # Bowel Movements 0 1 0 0 Result Diagram: 06/08/16 1335 06/08/16 1335 Objective Remarks GENERAL: Well-developed well-nourished. In no acute distress. SKIN: Warm and dry. No lesions noted. HEENT: Normocephalic. Pupils equal and round. Mucous membranes pink and moist. CARDIOVASCULAR: Regular rate and rhythm. No murmur appreciated. RESPIRATORY: No accessory muscle use. Clear to auscultation. Breath sounds equal bilaterally. GASTROINTESTINAL: Abdomen soft, non-tender, nondistended. Bowel sounds x4. MUSCULOSKELETAL: No obvious deformities. No clubbing or cyanosis. No edema. NEUROLOGICAL: Awake and alert. Right-sided weakness, right upper extremity worse than right lower. Right facial droop. Normal speech. PSYCHIATRIC: Odd mood and affect; insight and judgment fair to poor. Procedures None A/P Problem List: (1) Basal ganglia hemorrhage Status: Acute (2) Hemiparesis affecting right side as late effect of cerebrovascular accident (CVA) Status: Acute (3) Hypertensive emergency Status: Resolved (4) Metabolic acidosis Status: Resolved (5) UTI (urinary tract infection) Status: Resolved Assessment and Plan -Left basal ganglia bleed with 4mm MLS with Right hemiparesis secondary to cocaine and uncontrolled hypertension- NS Dr. Venegas has evaluated the patient. The bleed has been stable on repeat head CT. No surgery needed. She is left with significant right sided paralysis, memory and cognitive impairment. Stable -Alcohol and cocaine abuse dependence - patient previously counseled. -Hypertension-well controlled. BP readings reviewed and have been stable. Continue norvasc 10 mg daily, metoprolol 50 mg BID and lisinopril daily. Vasotec PRN for SBP >160 -Hypokalemia and hypophosphatemia. Improved on repeat labs. Resolved. -Tobacco abuse -Transaminitis and chronic HCV - liver ultrasound showed fatty infiltration -Abdominal pain. No fever and she is hemodynamically stable. Abdominal exam benign. Screening labs with CBC, BMP and urinalysis negative. Lipase normal. Continue GI prophylaxis. Maalox/simethicone and Tums as needed. Continue to monitor -Thrombocytopenia-secondary to alcohol abuse-s/p platelet transfusion 05/10/16 with improvement in platelet count - 05/14 thrombocytopenia resolved. -Right arm pain - cont Neurontin for right arm neuropathic pain -Candidal rash -improved. Continue nystatin topical and frequent position changes. -Anxiety. Seroquel low-dose initiated on 05/27. Mood seems OK. -DVT prophylaxis with Bilateral SCDs. Pharmacological prophylaxis contraindicated secondary to cerebral bleed Discharge Planning The patient will need long-term care. Case management arranging. Anurag Yu Jun 12, 2016 12:34
[2016-06-12] MEDS: QUEtiapine FUMARATE 25 MG TAB PO SCH (20:46)
[2016-06-13 00:35] VITALS: BP 105/75; PULSE 77; RESP 18; TEMP 97.7; O2SAT 98
[2016-06-13] MEDS: CHLORHEXIDINE GLUCONATE 2 % 1 PACK (2 CLOTHS) TOP SCH (04:00)
[2016-06-13 04:35] VITALS: BP 133/78; PULSE 102; RESP 18; TEMP 97.6; O2SAT 95
[2016-06-13] MEDS: NYSTATIN 100,000 UNIT/GM CREAM 15 GM TOPICAL SCH ×4 (06:00→18:30)
[2016-06-13 08:17] VITALS: BP 103/63; PULSE 89; RESP 18; TEMP 96.8; O2SAT 98
[2016-06-13] MEDS: SODIUM CHLORIDE 0.9% FLUSH 5 ML FLUSH IVF SCH ×2 (08:52→20:56)
[2016-06-13] MEDS: RANITIDINE HCL 150 MG TAB PO SCH ×2 (08:52→20:54)
[2016-06-13] MEDS: GABAPENTIN 100 MG CAP PO SCH ×3 (08:53→18:29)
[2016-06-13] MEDS: POTASSIUM CHLORIDE 10 MEQ CONTROLLED RELEASE TAB PO SCH (08:54)
[2016-06-13] MEDS: METOPROLOL TARTRATE 25 MG TAB PO SCH ×2 (08:59→20:54)
[2016-06-13] MEDS: LISINOPRIL 20 MG TAB PO SCH (08:59)
[2016-06-13 12:25] VITALS: BP 122/76; PULSE 93; RESP 18; TEMP 96.8; O2SAT 95
--- NOTE | 2016-06-13 12:44 | HHI.PR ---
Subjective Remarks Follow up for right hemiparesis and encephalopathy. The patient is awoken from her sleep, initially states "no, no, no, you come back later" however then allows me to ask a few questions and examine her. The patient is not wearing a gown, only covered by blanket, when asked why, she states "because I don't want to". Denies any medical complaints including no pain, headache, chest pain, shortness of breath, cough, abdominal or urinary complaints. Patient appears restless throughout exam. Objective Vitals Vital Signs Date Time Temp Pulse Resp B/P Pulse Ox O2 Delivery O2 Flow Rate FiO2 06/13/16 12:25 96.8 93 18 122/76 95 06/13/16 08:17 96.8 89 18 103/63 98 06/13/16 04:35 97.6 102 18 133/78 95 06/13/16 00:35 97.7 77 18 105/75 98 06/12/16 20:45 99.0 88 18 103/70 98 06/12/16 20:00 75 06/12/16 16:47 98.2 74 18 104/62 96 I/O 06/12/16 06/12/16 06/12/16 06/13/16 06/13/16 06/13/16 07:00 15:00 23:00 07:00 15:00 23:00 Intake Total 380 ml 250 ml 480 ml 0 ml Balance 380 ml 250 ml 480 ml 0 ml Intake Oral 380 ml 250 ml 480 ml 0 ml # Voids 2 1 2 3 # Bowel Movements 0 Imaging Last Impressions Chest X-Ray 05/12/16 0600 Signed Impressions: Service Date/Time: Thursday, May 12, 2016 05:16 - CONCLUSION: No acute disease. Nadir Hebert MD Liver Ultrasound 05/11/16 0000 Signed Impressions: Service Date/Time: Wednesday, May 11, 2016 08:30 - CONCLUSION: 1. Liver is slightly echogenic which can be seen with fatty infiltration/hepatocellular dysfunction. 2. No evidence for cholelithiasis. Geremias Smith MD Head Magnetic Resonance Angiography 05/11/16 0000 Signed Impressions: Service Date/Time: Wednesday, May 11, 2016 16:21 - CONCLUSION: No acute [place] vascular abnormalities. Jeremy Toledo MD Brain MRI 05/11/16 0000 Signed Impressions: Service Date/Time: Wednesday, May 11, 2016 16:21 - CONCLUSION: 1. Focal acute intraparenchymal hemorrhage in the left thalamus measuring 2.8 cm most likely representing a focal hemorrhagic infarction. 2. Bilateral cortical atrophy and mild chronic white matter changes. 3. No enhancing mass occupying lesions are demonstrated. Estrada Vigil MD Abdomen X-Ray 05/11/16 0000 Signed Impressions: Service Date/Time: Wednesday, May 11, 2016 16:03 - CONCLUSION: No evidence of obstruction. No MRI incompatible foreign body is identified. Estrada Vigil MD Head CT 05/10/16 1431 Signed Impressions: Service Date/Time: Tuesday, May 10, 2016 15:07 - CONCLUSION: 1. 2.3 cm left thalamic hypertensive type hemorrhage with approximately 4 mm of [id number] subfalcine shift. 2. Mild periventricular small vessel ischemic demyelination. 3. Results were called to Dr. Barboza at the time of this dictation. Nicholas Dove MD Objective Remarks GENERAL: Well-nourished, well-developed middle aged female patient in [facility]. Restless in bed. Not wearing a gown, covered by blanket. SKIN: Warm and dry. No rash. HEAD: Normocephalic. Atraumatic. NECK: Supple. Trachea midline. CARDIOVASCULAR: Regular rate and rhythm. S1, S2 noted. No murmur appreciated. RESPIRATORY: No accessory muscle use. Clear to auscultation. Breath sounds equal bilaterally. GASTROINTESTINAL: Abdomen soft, non-tender, nondistended. Normoactive bowel sounds x4. MUSCULOSKELETAL: No obvious deformities. Extremities without clubbing, cyanosis , or edema. NEUROLOGICAL: Awake and alert. Right sided facial droop. Speech normal. Right sided diffuse weakness but would not participate in strength testing commands today, tells me to "come back later". PSYCHIATRIC: Odd mood, restless; insight and judgment limited. Procedures None Medications and IVs Current Medications Medications (Trade) Dose Ordered Sig/Nicole Route Start Time Stop Time Status Last Admin (NS Flush) 2 ml UNSCH PRN IVF 05/10/16 19:00 05/13/16 23:17 (NS Flush) 2 ml BID IVF 05/10/16 21:00 06/13/16 08:52 (Tylenol) 650 mg Q6H PRN PO 05/10/16 19:00 06/08/16 11:42 (Zofran Inj) 4 mg Q6H PRN IV 05/10/16 19:00 Miscellaneous Information 1 Q361D XX 05/10/16 19:00 05/10/16 19:00 (Chlorhexidine 2% Cloth) Taper DAILY@04 TOP 05/11/16 04:00 05/07/17 03:59 05/15/16 04:00 (Chlorhexidine 2% Cloth) 3 pack UNSCH PRN TOP 05/10/16 19:00 (Norvasc) 10 mg DAILY PO 05/11/16 09:00 06/12/16 08:40 (Vasotec Inj) 1.25 mg Q6H PRN IV PUSH 05/14/16 17:15 05/23/16 03:58 (Prinivil) 20 mg DAILY PO 05/14/16 17:15 06/12/16 08:29 (Lopressor) 50 mg Q12HR PO 05/16/16 09:00 06/12/16 08:29 (Neurontin) 100 mg TID PO 05/21/16 18:00 06/13/16 08:53 (Mycostatin Cream) 1 applic Q6HR TOPICAL 05/25/16 12:00 06/13/16 08:54 (SEROquel) 12.5 mg HS PO 05/27/16 21:00 06/12/16 20:46 (Ativan) 1 mg Q6H PRN PO 05/27/16 11:00 06/11/16 20:25 (Pill Splitter) 1 ea UNSCH PRN OTHER 05/27/16 11:15 (KCl) 10 meq DAILY PO 06/06/16 10:00 06/13/16 08:54 (Mag-Al Plus Susp Liq) 30 ml Q6H PRN PO 06/09/16 13:30 (Tums Chew) 500 mg Q6H PRN CHEW 06/09/16 13:30 06/09/16 13:51 (Zantac) 150 mg BID PO 06/09/16 13:30 06/13/16 08:52 Urinary Catheter: No A/P Problem List: (1) Basal ganglia hemorrhage Status: Acute (2) Hemiparesis affecting right side as late effect of cerebrovascular accident (CVA) Status: Acute (3) Hypertensive emergency Status: Resolved (4) Metabolic acidosis Status: Resolved (5) UTI (urinary tract infection) Status: Resolved Assessment and Plan 55-year-old female with hx of alcohol abuse presented to the ED 05/10/16 with AMS , she was noted to be AOx2, hypertensive in the ED, CT brain showed basal ganglia hemorrhage, admitted to ICU -Left basal ganglia bleed with 4mm MLS with Right hemiparesis secondary to cocaine and uncontrolled hypertension- NS Dr. Venegas evaluated. The bleed has been stable on repeat head CT. No surgery needed. Significant right sided paralysis, memory and cognitive impairment persists. Stable. Continue PT/OT/ ST. -Alcohol and cocaine abuse/dependence - patient previously counseled. -Hypertension- now well controlled. BP readings reviewed and have been stable. Continue norvasc 10 mg daily, metoprolol 50 mg BID and lisinopril daily. Vasotec PRN for SBP >160 -Hypokalemia and hypophosphatemia. Improved on repeat labs. Resolved. -Tobacco abuse: counseled previously. -Transaminitis and chronic HCV - liver ultrasound showed fatty infiltration. LFTs stable. -Abdominal pain. No fever, hemodynamically stable. Abdominal exam benign. Screening labs with CBC, BMP and urinalysis negative. Lipase normal. Continue GI prophylaxis. Maalox/simethicone and Tums as needed. Continue to monitor. No pain today. -Thrombocytopenia-secondary to alcohol abuse-s/p platelet transfusion 05/10/16 with improvement in platelet count - 05/14 thrombocytopenia resolved. -Right arm pain - cont Neurontin for right arm neuropathic pain. -Candidal rash -improved. Continue nystatin topical and frequent position changes. -Anxiety. Seroquel low-dose initiated on 05/27. Mood seems OK. -DVT prophylaxis with Bilateral SCDs. Pharmacological prophylaxis contraindicated secondary to cerebral bleed. Discharge Planning Case management assisting with placement. Aleta Mccoy PA-C Jun 13, 2016 12:44
[2016-06-13 18:00] VITALS: BP 108/67; PULSE 92; RESP 18; TEMP 96.7; O2SAT 99
[2016-06-13 20:00] VITALS: BP 110/69; PULSE 92; PULSE 96; RESP 18; TEMP 97.6; O2SAT 97
[2016-06-13] MEDS: QUEtiapine FUMARATE 25 MG TAB PO SCH (20:54)
[2016-06-14] VITALS (7 sets, daily range): BP systolic 108–134; BP diastolic 66–76; PULSE 71–97; RESP 18–21; TEMP 96.6–98.4; O2SAT 93–98
[2016-06-14] MEDS: CHLORHEXIDINE GLUCONATE 2 % 1 PACK (2 CLOTHS) TOP SCH (04:00)
[2016-06-14] MEDS: NYSTATIN 100,000 UNIT/GM CREAM 15 GM TOPICAL SCH ×4 (05:40→21:55)
[2016-06-14] MEDS: GABAPENTIN 100 MG CAP PO SCH ×3 (08:39→17:41)
[2016-06-14] MEDS: RANITIDINE HCL 150 MG TAB PO SCH ×2 (08:40→21:51)
[2016-06-14] MEDS: POTASSIUM CHLORIDE 10 MEQ CONTROLLED RELEASE TAB PO SCH (08:40)
[2016-06-14] MEDS: SODIUM CHLORIDE 0.9% FLUSH 5 ML FLUSH IVF SCH ×2 (08:44→21:54)
[2016-06-14] MEDS: METOPROLOL TARTRATE 25 MG TAB PO SCH ×2 (09:00→21:51)
[2016-06-14] MEDS: LISINOPRIL 20 MG TAB PO SCH (09:00)
--- NOTE | 2016-06-14 12:58 | HHI.PR ---
Subjective Remarks Follow up for right hemiparesis and encephalopathy. The patient is seen lying in bed, watching tv, in a better mood today. Ate part of her lunch, states she' s not that hungry today. Denies any other medical complaints including no headache, congestion, chest pain, shortness of breath, abdominal pain, nausea/ vomiting, diarrhea/constipation. Vital signs stable. Objective Vitals Vital Signs Date Time Temp Pulse Resp B/P Pulse Ox O2 Delivery O2 Flow Rate FiO2 06/14/16 08:00 97.0 95 18 129/72 97 06/14/16 07:00 97 06/14/16 04:00 97.6 74 21 110/73 95 06/14/16 00:00 96.6 95 18 112/75 98 06/13/16 20:00 96 06/13/16 20:00 97.6 92 18 110/69 97 06/13/16 18:00 96.7 92 18 108/67 99 I/O 06/13/16 06/13/16 06/13/16 06/14/16 06/14/16 06/14/16 07:00 15:00 23:00 07:00 15:00 23:00 Intake Total 0 ml 120 ml 620 ml Balance 0 ml 120 ml 620 ml Intake Oral 0 ml 120 ml 620 ml # Voids 3 4 2 # Bowel Movements 0 Imaging Last Impressions Chest X-Ray 05/12/16 0600 Signed Impressions: Service Date/Time: Thursday, May 12, 2016 05:16 - CONCLUSION: No acute disease. Nadir Hebert MD Liver Ultrasound 05/11/16 0000 Signed Impressions: Service Date/Time: Wednesday, May 11, 2016 08:30 - CONCLUSION: 1. Liver is slightly echogenic which can be seen with fatty infiltration/hepatocellular dysfunction. 2. No evidence for cholelithiasis. Geremias Smith MD Head Magnetic Resonance Angiography 05/11/16 0000 Signed Impressions: Service Date/Time: Wednesday, May 11, 2016 16:21 - CONCLUSION: No acute [place] vascular abnormalities. Jeremy Toledo MD Brain MRI 05/11/16 0000 Signed Impressions: Service Date/Time: Wednesday, May 11, 2016 16:21 - CONCLUSION: 1. Focal acute intraparenchymal hemorrhage in the left thalamus measuring 2.8 cm most likely representing a focal hemorrhagic infarction. 2. Bilateral cortical atrophy and mild chronic white matter changes. 3. No enhancing mass occupying lesions are demonstrated. Estrada Vigil MD Abdomen X-Ray 05/11/16 0000 Signed Impressions: Service Date/Time: Wednesday, May 11, 2016 16:03 - CONCLUSION: No evidence of obstruction. No MRI incompatible foreign body is identified. Estrada Vigil MD Head CT 05/10/16 1431 Signed Impressions: Service Date/Time: Tuesday, May 10, 2016 15:07 - CONCLUSION: 1. 2.3 cm left thalamic hypertensive type hemorrhage with approximately 4 mm of [id number] subfalcine shift. 2. Mild periventricular small vessel ischemic demyelination. 3. Results were called to Dr. Barboza at the time of this dictation. Nicholas Dove MD Objective Remarks GENERAL: Well-nourished, well-developed middle aged female patient in [facility]. SKIN: Warm and dry. No rash. HEAD: Normocephalic. Atraumatic. NECK: Supple. Trachea midline. CARDIOVASCULAR: Regular rate and rhythm. S1, S2 noted. No murmur appreciated. RESPIRATORY: No accessory muscle use. Clear to auscultation. Breath sounds equal bilaterally. GASTROINTESTINAL: Abdomen soft, non-tender, nondistended. Normoactive bowel sounds x4. MUSCULOSKELETAL: No obvious deformities. Extremities without clubbing, cyanosis , or edema. NEUROLOGICAL: Awake and alert. Right sided facial droop. Speech normal. Right sided diffuse weakness and right facial droop. RUE worse than RLE. PSYCHIATRIC: Odd mood, restless; insight and judgment limited. Procedures None Medications and IVs Current Medications Medications (Trade) Dose Ordered Sig/Nicole Route Start Time Stop Time Status Last Admin (NS Flush) 2 ml UNSCH PRN IVF 05/10/16 19:00 05/13/16 23:17 (NS Flush) 2 ml BID IVF 05/10/16 21:00 06/14/16 08:44 (Tylenol) 650 mg Q6H PRN PO 05/10/16 19:00 06/08/16 11:42 (Zofran Inj) 4 mg Q6H PRN IV 05/10/16 19:00 Miscellaneous Information 1 Q361D XX 05/10/16 19:00 05/10/16 19:00 (Chlorhexidine 2% Cloth) Taper DAILY@04 TOP 05/11/16 04:00 05/07/17 03:59 05/15/16 04:00 (Chlorhexidine 2% Cloth) 3 pack UNSCH PRN TOP 05/10/16 19:00 (Norvasc) 10 mg DAILY PO 05/11/16 09:00 06/12/16 08:40 (Vasotec Inj) 1.25 mg Q6H PRN IV PUSH 05/14/16 17:15 05/23/16 03:58 (Prinivil) 20 mg DAILY PO 05/14/16 17:15 06/12/16 08:29 (Lopressor) 50 mg Q12HR PO 05/16/16 09:00 06/12/16 08:29 (Neurontin) 100 mg TID PO 05/21/16 18:00 06/14/16 08:39 (Mycostatin Cream) 1 applic Q6HR TOPICAL 05/25/16 12:00 06/14/16 08:40 (SEROquel) 12.5 mg HS PO 05/27/16 21:00 06/13/16 20:54 (Ativan) 1 mg Q6H PRN PO 05/27/16 11:00 06/11/16 20:25 (Pill Splitter) 1 ea UNSCH PRN OTHER 05/27/16 11:15 (KCl) 10 meq DAILY PO 06/06/16 10:00 06/14/16 08:40 (Mag-Al Plus Susp Liq) 30 ml Q6H PRN PO 06/09/16 13:30 (Tums Chew) 500 mg Q6H PRN CHEW 06/09/16 13:30 06/09/16 13:51 (Zantac) 150 mg BID PO 06/09/16 13:30 06/14/16 08:40 Urinary Catheter: No A/P Problem List: (1) Basal ganglia hemorrhage Status: Acute (2) Hemiparesis affecting right side as late effect of cerebrovascular accident (CVA) Status: Acute (3) Hypertensive emergency Status: Resolved (4) Metabolic acidosis Status: Resolved (5) UTI (urinary tract infection) Status: Resolved Assessment and Plan 55-year-old female with hx of alcohol abuse presented to the ED 05/10/16 with AMS , she was noted to be AOx2, hypertensive in the ED, CT brain showed basal ganglia hemorrhage, admitted to ICU -Left basal ganglia bleed with 4mm MLS with Right hemiparesis secondary to cocaine and uncontrolled hypertension- NARGIS Venegas evaluated. The bleed has been stable on repeat head CT. No surgery needed. Significant right sided paralysis, memory and cognitive impairment persists. Stable. Continue PT/OT/ ST. -Alcohol and cocaine abuse/dependence - patient previously counseled. -Hypertension- now well controlled. BP readings reviewed and have been stable. Continue norvasc 10 mg daily, metoprolol 50 mg BID and lisinopril daily. Vasotec PRN for SBP >160 -Hypokalemia and hypophosphatemia. Improved on repeat labs. Resolved. -Tobacco abuse: counseled previously. -Transaminitis and chronic HCV - liver ultrasound showed fatty infiltration. LFTs stable. -Abdominal pain. No fever, hemodynamically stable. Abdominal exam benign. Screening labs with CBC, BMP and urinalysis negative. Lipase normal. Continue GI prophylaxis. Maalox/simethicone and Tums as needed. Continue to monitor. No pain today. -Thrombocytopenia-secondary to alcohol abuse-s/p platelet transfusion 05/10/16 with improvement in platelet count - 05/14 thrombocytopenia resolved. -Right arm pain - cont Neurontin for right arm neuropathic pain. -Candidal rash -improved. Continue nystatin topical and frequent position changes. -Anxiety. Seroquel low-dose initiated on 05/27. Mood seems OK. -DVT prophylaxis with Bilateral SCDs. Pharmacological prophylaxis contraindicated secondary to cerebral bleed. Discharge Planning Case management assisting with placement. Aleta Mccoy PA-C Jun 14, 2016 12:58
[2016-06-14] MEDS: QUEtiapine FUMARATE 25 MG TAB PO SCH (21:51)
[2016-06-15 04:00] VITALS: BP 116/84; PULSE 89; RESP 18; TEMP 97.3; O2SAT 97
[2016-06-15] MEDS: CHLORHEXIDINE GLUCONATE 2 % 1 PACK (2 CLOTHS) TOP SCH (04:00)
[2016-06-15] MEDS: NYSTATIN 100,000 UNIT/GM CREAM 15 GM TOPICAL SCH ×3 (06:22→21:31)
[2016-06-15 07:00] VITALS: PULSE 92
[2016-06-15] MEDS: RANITIDINE HCL 150 MG TAB PO SCH ×2 (07:51→21:30)
[2016-06-15] MEDS: GABAPENTIN 100 MG CAP PO SCH ×2 (07:51→12:29)
[2016-06-15] MEDS: POTASSIUM CHLORIDE 10 MEQ CONTROLLED RELEASE TAB PO SCH (07:52)
[2016-06-15 08:27] VITALS: BP 124/73; PULSE 84; RESP 18; TEMP 98.7; O2SAT 97
[2016-06-15] MEDS: LISINOPRIL 20 MG TAB PO SCH (12:18)
[2016-06-15] MEDS: METOPROLOL TARTRATE 25 MG TAB PO SCH ×3 (12:19→21:29)
--- NOTE | 2016-06-15 13:37 | HHI.PR ---
Subjective Remarks Follow up for right hemiparesis and encephalopathy. The patient is seen in bed eating lunch. She denies any medical complaints. Still with right arm and leg paralysis however she feels the numbness is improving and she is getting more feeling of the right arm. Objective Vitals Vital Signs Date Time Temp Pulse Resp B/P Pulse Ox O2 Delivery O2 Flow Rate FiO2 06/15/16 08:27 98.7 84 18 124/73 97 06/15/16 07:00 92 06/15/16 04:00 97.3 89 18 116/84 97 06/14/16 22:15 97.0 95 18 108/66 93 06/14/16 16:00 98.4 92 18 122/76 97 I/O 06/14/16 06/14/16 06/14/16 06/15/16 06/15/16 06/15/16 07:00 15:00 23:00 07:00 15:00 23:00 Intake Total 620 ml Balance 620 ml Intake Oral 620 ml # Voids 2 3 4 # Bowel Movements 0 1 1 Imaging Last Impressions Chest X-Ray 05/12/16 0600 Signed Impressions: Service Date/Time: Thursday, May 12, 2016 05:16 - CONCLUSION: No acute disease. Nadir Hebert MD Liver Ultrasound 05/11/16 0000 Signed Impressions: Service Date/Time: Wednesday, May 11, 2016 08:30 - CONCLUSION: 1. Liver is slightly echogenic which can be seen with fatty infiltration/hepatocellular dysfunction. 2. No evidence for cholelithiasis. Geremias Smith MD Head Magnetic Resonance Angiography 05/11/16 0000 Signed Impressions: Service Date/Time: Wednesday, May 11, 2016 16:21 - CONCLUSION: No acute [place] vascular abnormalities. Jeremy Toledo MD Brain MRI 05/11/16 0000 Signed Impressions: Service Date/Time: Wednesday, May 11, 2016 16:21 - CONCLUSION: 1. Focal acute intraparenchymal hemorrhage in the left thalamus measuring 2.8 cm most likely representing a focal hemorrhagic infarction. 2. Bilateral cortical atrophy and mild chronic white matter changes. 3. No enhancing mass occupying lesions are demonstrated. Estrada Vigil MD Abdomen X-Ray 05/11/16 0000 Signed Impressions: Service Date/Time: Wednesday, May 11, 2016 16:03 - CONCLUSION: No evidence of obstruction. No MRI incompatible foreign body is identified. Estrada Vigil MD Head CT 05/10/16 1431 Signed Impressions: Service Date/Time: Tuesday, May 10, 2016 15:07 - CONCLUSION: 1. 2.3 cm left thalamic hypertensive type hemorrhage with approximately 4 mm of [id number] subfalcine shift. 2. Mild periventricular small vessel ischemic demyelination. 3. Results were called to Dr. Barboza at the time of this dictation. Nicholas Dove MD Objective Remarks GENERAL: Well-nourished, well-developed middle aged female patient in [facility]. SKIN: Warm and dry. No rash. HEAD: Normocephalic. Atraumatic. NECK: Supple. Trachea midline. CARDIOVASCULAR: Regular rate and rhythm. S1, S2 noted. No murmur appreciated. RESPIRATORY: No accessory muscle use. Clear to auscultation. Breath sounds equal bilaterally. GASTROINTESTINAL: Abdomen soft, non-tender, nondistended. Normoactive bowel sounds x4. MUSCULOSKELETAL: No obvious deformities. Extremities without clubbing, cyanosis , or edema. NEUROLOGICAL: Awake and alert. Speech normal. Right sided diffuse weakness 1/5, Left side with 5/5 strength. PSYCHIATRIC: Restless; insight and judgment limited. Procedures None Medications and IVs Current Medications Medications (Trade) Dose Ordered Sig/Nicole Route Start Time Stop Time Status Last Admin (NS Flush) 2 ml UNSCH PRN IVF 05/10/16 19:00 05/13/16 23:17 (NS Flush) 2 ml BID IVF 05/10/16 21:00 06/14/16 21:54 (Tylenol) 650 mg Q6H PRN PO 05/10/16 19:00 06/08/16 11:42 (Zofran Inj) 4 mg Q6H PRN IV 05/10/16 19:00 Miscellaneous Information 1 Q361D XX 05/10/16 19:00 05/10/16 19:00 (Chlorhexidine 2% Cloth) Taper DAILY@04 TOP 05/11/16 04:00 05/07/17 03:59 05/15/16 04:00 (Chlorhexidine 2% Cloth) 3 pack UNSCH PRN TOP 05/10/16 19:00 (Norvasc) 10 mg DAILY PO 05/11/16 09:00 06/15/16 12:19 (Vasotec Inj) 1.25 mg Q6H PRN IV PUSH 05/14/16 17:15 05/23/16 03:58 (Prinivil) 20 mg DAILY PO 05/14/16 17:15 06/15/16 12:18 (Lopressor) 50 mg Q12HR PO 05/16/16 09:00 06/15/16 12:19 (Neurontin) 100 mg TID PO 05/21/16 18:00 06/15/16 12:29 (Mycostatin Cream) 1 applic Q6HR TOPICAL 05/25/16 12:00 06/15/16 06:22 (SEROquel) 12.5 mg HS PO 05/27/16 21:00 06/14/16 21:51 (Ativan) 1 mg Q6H PRN PO 05/27/16 11:00 06/11/16 20:25 (Pill Splitter) 1 ea UNSCH PRN OTHER 05/27/16 11:15 (KCl) 10 meq DAILY PO 06/06/16 10:00 06/15/16 07:52 (Mag-Al Plus Susp Liq) 30 ml Q6H PRN PO 06/09/16 13:30 (Tums Chew) 500 mg Q6H PRN CHEW 06/09/16 13:30 06/09/16 13:51 (Zantac) 150 mg BID PO 06/09/16 13:30 06/15/16 07:51 Urinary Catheter: No Vascular Central Line Catheter: No A/P Problem List: (1) Basal ganglia hemorrhage Status: Acute (2) Hemiparesis affecting right side as late effect of cerebrovascular accident (CVA) Status: Acute (3) Hypertensive emergency Status: Resolved (4) Metabolic acidosis Status: Resolved (5) UTI (urinary tract infection) Status: Resolved Assessment and Plan 55-year-old female with hx of alcohol abuse presented to the ED 05/10/16 with AMS , she was noted to be AOx2, hypertensive in the ED, CT brain showed basal ganglia hemorrhage, admitted to ICU -Left basal ganglia bleed with 4mm MLS with Right hemiparesis secondary to cocaine and uncontrolled hypertension- NS Dr. Venegas evaluated. The bleed has been stable on repeat head CT. No surgery needed. Significant right sided paralysis, memory and cognitive impairment persists. Stable. Continue PT/OT/ ST. -Alcohol and cocaine abuse/dependence - patient previously counseled. -Hypertension- now well controlled. BP readings reviewed and have been stable. Continue norvasc 10 mg daily, metoprolol 50 mg BID and lisinopril daily. Vasotec PRN for SBP >160 -Hypokalemia and hypophosphatemia. Improved on repeat labs. Resolved. -Tobacco abuse: counseled previously. -Transaminitis and chronic HCV - liver ultrasound showed fatty infiltration. LFTs stable. -Abdominal pain. No fever, hemodynamically stable. Abdominal exam benign. Screening labs with CBC, BMP and urinalysis negative. Lipase normal. Continue GI prophylaxis. Maalox/simethicone and Tums as needed. Continue to monitor. No pain today. -Thrombocytopenia-secondary to alcohol abuse-s/p platelet transfusion 05/10/16 with improvement in platelet count - 05/14 thrombocytopenia resolved. -Right arm pain - cont Neurontin for right arm neuropathic pain. -Candidal rash -improved. Continue nystatin topical and frequent position changes. -Anxiety. Seroquel low-dose initiated on 05/27. Mood seems OK. -DVT prophylaxis with Bilateral SCDs. Pharmacological prophylaxis contraindicated secondary to cerebral bleed. Discharge Planning Case management assisting with placement. Aleta Mccoy PA-C Jun 15, 2016 13:37 Walter Gamboa MD Jun 15, 2016 18:01
[2016-06-15 16:00] VITALS: BP 94/55; PULSE 68; RESP 18; TEMP 97.7; O2SAT 99
[2016-06-15 20:23] VITALS: BP 97/63; PULSE 83; RESP 18; TEMP 97.5; O2SAT 97
[2016-06-15] MEDS: SODIUM CHLORIDE 0.9% FLUSH 5 ML FLUSH IVF SCH (21:00)
[2016-06-15] MEDS: QUEtiapine FUMARATE 25 MG TAB PO SCH (21:30)
[2016-06-15 21:31] VITALS: PULSE 72
[2016-06-16] VITALS (7 sets, daily range): BP systolic 93–110; BP diastolic 56–67; PULSE 62–95; RESP 14–20; TEMP 97.1–98.7; O2SAT 94–99
[2016-06-16] MEDS: CHLORHEXIDINE GLUCONATE 2 % 1 PACK (2 CLOTHS) TOP SCH (04:00)
[2016-06-16] MEDS: NYSTATIN 100,000 UNIT/GM CREAM 15 GM TOPICAL SCH ×4 (06:00→23:28)
[2016-06-16] MEDS: METOPROLOL TARTRATE 25 MG TAB PO SCH ×2 (09:00→19:51)
[2016-06-16] MEDS: SODIUM CHLORIDE 0.9% FLUSH 5 ML FLUSH IVF SCH ×2 (09:00→19:51)
[2016-06-16] MEDS: RANITIDINE HCL 150 MG TAB PO SCH ×2 (09:00→19:51)
[2016-06-16] MEDS: LISINOPRIL 20 MG TAB PO SCH (09:00)
[2016-06-16] MEDS: POTASSIUM CHLORIDE 10 MEQ CONTROLLED RELEASE TAB PO SCH (09:00)
[2016-06-16] MEDS: GABAPENTIN 100 MG CAP PO SCH ×3 (09:01→18:04)
--- NOTE | 2016-06-16 13:20 | HHI.PR ---
Subjective Remarks Follow-up for right hemiparesis and encephalopathy. The patient states that she had previously been having abdominal pain and diarrhea, but denies any further episodes. Has been eating and drinking well with no nausea. She has no other complaints at this time. She has been working well with physical therapy, but states sometimes she feels like she doesn't have time to do it. Objective Vitals Vital Signs Date Time Temp Pulse Resp B/P Pulse Ox O2 Delivery O2 Flow Rate FiO2 06/16/16 12:24 97.6 85 16 103/67 99 06/16/16 08:05 97.1 92 15 93/58 96 06/16/16 04:25 98.7 62 18 110/56 97 06/16/16 00:42 98.4 95 18 94/62 95 06/15/16 21:31 72 06/15/16 20:23 97.5 83 18 97/63 97 06/15/16 16:00 97.7 68 18 94/55 99 I/O 06/15/16 06/15/16 06/15/16 06/16/16 06/16/16 06/16/16 07:00 15:00 23:00 07:00 15:00 23:00 Intake Total 240 ml 650 ml 600 ml Balance 240 ml 650 ml 600 ml Intake Oral 240 ml 650 ml 600 ml # Voids 4 4 2 3 # Bowel Movements 1 0 Objective Remarks GENERAL: Well-developed well-nourished. In no acute distress. SKIN: Warm and dry. No lesions noted. HEENT: Normocephalic. Pupils equal and round. Mucous membranes pink and moist. CARDIOVASCULAR: Regular rate and rhythm. No murmur appreciated. RESPIRATORY: No accessory muscle use. Clear to auscultation. Breath sounds equal bilaterally. GASTROINTESTINAL: Abdomen soft, non-tender, nondistended. Bowel sounds x4. MUSCULOSKELETAL: No obvious deformities. No clubbing or cyanosis. No edema. NEUROLOGICAL: Awake and alert. Right-sided weakness, right upper extremity worse than right lower. Right facial droop. Normal speech. PSYCHIATRIC: Odd mood and affect; insight and judgment fair to poor. Procedures None A/P Problem List: (1) Basal ganglia hemorrhage Status: Acute (2) Hemiparesis affecting right side as late effect of cerebrovascular accident (CVA) Status: Acute (3) Hypertensive emergency Status: Resolved (4) Metabolic acidosis Status: Resolved (5) UTI (urinary tract infection) Status: Resolved Assessment and Plan -Left basal ganglia bleed with 4mm MLS with Right hemiparesis secondary to cocaine and uncontrolled hypertension- NS Dr. Venegas has evaluated the patient. The bleed has been stable on repeat head CT. No surgery needed. She is left with significant right sided paralysis, memory and cognitive impairment. Stable -Alcohol and cocaine abuse dependence - patient previously counseled. -Hypertension-well controlled. BP readings reviewed and have been stable. Continue norvasc 10 mg daily, metoprolol 50 mg BID and lisinopril daily. Vasotec PRN for SBP >160 -Hypokalemia and hypophosphatemia. Improved on repeat labs. Resolved. -Tobacco abuse -Transaminitis and chronic HCV - liver ultrasound showed fatty infiltration -Abdominal pain. No fever and she is hemodynamically stable. Abdominal exam benign. Screening labs with CBC, BMP and urinalysis negative. Lipase normal. Continue GI prophylaxis. Maalox/simethicone and Tums as needed. Continue to monitor -Thrombocytopenia-secondary to alcohol abuse-s/p platelet transfusion 05/10/16 with improvement in platelet count - 05/14 thrombocytopenia resolved. -Right arm pain - cont Neurontin for right arm neuropathic pain -Candidal rash -improved. Continue nystatin topical and frequent position changes. -Anxiety. Seroquel low-dose initiated on 05/27. Mood seems OK. -DVT prophylaxis with Bilateral SCDs. Pharmacological prophylaxis contraindicated secondary to cerebral bleed Discharge Planning The patient will need long-term care. Case management arranging. Anurag Yu Jun 16, 2016 13:20 Walter Gamboa MD Jun 16, 2016 17:55
[2016-06-16] MEDS: QUEtiapine FUMARATE 25 MG TAB PO SCH (19:51)
[2016-06-17] VITALS: BP 109/63; PULSE 82; RESP 20; TEMP 98.1; O2SAT 97
[2016-06-17] MEDS: CHLORHEXIDINE GLUCONATE 2 % 1 PACK (2 CLOTHS) TOP SCH (02:48)
[2016-06-17] MEDS: NYSTATIN 100,000 UNIT/GM CREAM 15 GM TOPICAL SCH ×3 (03:49→16:35)
[2016-06-17 04:00] VITALS: BP 133/69; PULSE 93; RESP 20; TEMP 96.5; O2SAT 96
[2016-06-17 08:06] VITALS: BP 113/75; PULSE 83; RESP 20; TEMP 96.3; O2SAT 94
[2016-06-17] MEDS: METOPROLOL TARTRATE 25 MG TAB PO SCH ×2 (08:17→21:31)
[2016-06-17] MEDS: GABAPENTIN 100 MG CAP PO SCH ×3 (08:17→16:35)
[2016-06-17] MEDS: POTASSIUM CHLORIDE 10 MEQ CONTROLLED RELEASE TAB PO SCH (08:17)
[2016-06-17] MEDS: RANITIDINE HCL 150 MG TAB PO SCH ×2 (08:17→21:31)
[2016-06-17] MEDS: LORazepam 1 MG TAB PO PRN (08:17)
[2016-06-17] MEDS: LISINOPRIL 20 MG TAB PO SCH (08:17)
[2016-06-17] MEDS: SODIUM CHLORIDE 0.9% FLUSH 5 ML FLUSH IVF SCH ×2 (08:18→21:00)
[2016-06-17 13:06] VITALS: BP 96/61; PULSE 68; RESP 18; TEMP 97.6; O2SAT 96
--- NOTE | 2016-06-17 13:16 | HHI.PR ---
Subjective Remarks Follow-up for right hemiparesis and encephalopathy. Discussed with RN, no acute issues today. The patient is upset because her gown is wet and she wants a new one. She has no acute medical complaints today. Objective Vitals Vital Signs Date Time Temp Pulse Resp B/P Pulse Ox O2 Delivery O2 Flow Rate FiO2 06/17/16 13:06 97.6 68 18 96/61 96 06/17/16 08:06 96.3 83 20 113/75 94 06/17/16 04:00 96.5 93 20 133/69 96 06/17/16 00:00 98.1 82 20 109/63 97 06/16/16 20:00 97.8 92 20 103/59 94 06/16/16 15:55 97.3 76 14 97/65 94 06/16/16 15:19 86 I/O 06/16/16 06/16/16 06/16/16 06/17/16 06/17/16 06/17/16 07:00 15:00 23:00 07:00 15:00 23:00 Intake Total 600 ml 800 ml 240 ml 240 ml Balance 600 ml 800 ml 240 ml 240 ml Intake Oral 600 ml 800 ml 240 ml 240 ml # Voids 3 3 2 4 # Bowel Movements 0 0 0 Objective Remarks GENERAL: Well-developed well-nourished. In no acute distress. SKIN: Warm and dry. No lesions noted. HEENT: Normocephalic. Pupils equal and round. Mucous membranes pink and moist. CARDIOVASCULAR: Regular rate and rhythm. No murmur appreciated. RESPIRATORY: No accessory muscle use. Clear to auscultation. Breath sounds equal bilaterally. GASTROINTESTINAL: Abdomen soft, non-tender, nondistended. Bowel sounds x4. MUSCULOSKELETAL: No obvious deformities. No clubbing or cyanosis. No edema. NEUROLOGICAL: Awake and alert. Right-sided weakness, right upper extremity worse than right lower. Right facial droop. Normal speech. PSYCHIATRIC: Odd mood and affect; insight and judgment fair to poor. Procedures None A/P Problem List: (1) Basal ganglia hemorrhage Status: Acute (2) Hemiparesis affecting right side as late effect of cerebrovascular accident (CVA) Status: Acute (3) Hypertensive emergency Status: Resolved (4) Metabolic acidosis Status: Resolved (5) UTI (urinary tract infection) Status: Resolved Assessment and Plan -Left basal ganglia bleed with 4mm MLS with Right hemiparesis secondary to cocaine and uncontrolled hypertension- NS Dr. Venegas has evaluated the patient. The bleed has been stable on repeat head CT. No surgery needed. She is left with significant right sided paralysis, memory and cognitive impairment. Stable -Alcohol and cocaine abuse dependence - patient previously counseled. -Hypertension-well controlled. BP readings reviewed and have been stable. Continue norvasc 10 mg daily, metoprolol 50 mg BID and lisinopril daily. Vasotec PRN for SBP >160 -Hypokalemia and hypophosphatemia. Improved on repeat labs. Resolved. -Tobacco abuse -Transaminitis and chronic HCV - liver ultrasound showed fatty infiltration -Abdominal pain. No fever and she is hemodynamically stable. Abdominal exam benign. Screening labs with CBC, BMP and urinalysis negative. Lipase normal. Continue GI prophylaxis. Maalox/simethicone and Tums as needed. Continue to monitor -Thrombocytopenia-secondary to alcohol abuse-s/p platelet transfusion 05/10/16 with improvement in platelet count - 05/14 thrombocytopenia resolved. -Right arm pain - cont Neurontin for right arm neuropathic pain -Candidal rash -improved. Continue nystatin topical and frequent position changes. -Anxiety. Seroquel low-dose initiated on 05/27. Mood seems OK. -DVT prophylaxis with Bilateral SCDs. Pharmacological prophylaxis contraindicated secondary to cerebral bleed Discharge Planning The patient will need long-term care. Case management arranging. Discussed with case management, could consider transfer to [facility] while awaiting placement. Anurag Yu Jun 17, 2016 13:15 Walter Gamboa MD Jun 17, 2016 14:17
[2016-06-17 17:09] VITALS: PULSE 81
[2016-06-17 20:00] VITALS: BP 103/70; PULSE 78; RESP 20; TEMP 96.6; O2SAT 100
[2016-06-17] MEDS: QUEtiapine FUMARATE 25 MG TAB PO SCH (21:31)
[2016-06-18] VITALS: BP 133/62; PULSE 76; RESP 20; TEMP 97.5; O2SAT 98
[2016-06-18] MEDS: CHLORHEXIDINE GLUCONATE 2 % 1 PACK (2 CLOTHS) TOP SCH (04:00)
[2016-06-18] MEDS: NYSTATIN 100,000 UNIT/GM CREAM 15 GM TOPICAL SCH ×5 (06:46→20:10)
[2016-06-18 08:00] VITALS: BP 119/82; PULSE 73; RESP 20; TEMP 96; O2SAT 98
--- NOTE | 2016-06-18 09:21 | HHI.PR ---
Subjective Remarks 55-year-old female who is seen today for the first time in [place]. Patient originally presented the hospital back on 05/10/16 in which patient presented to the hospital and altered mental status, patient was found to have intracranial hemorrhage with a basal ganglia bleed likely secondary to uncontrolled hypertension and noncompliance. The intracranial hemorrhage was considered to be stable by neurosurgery. Patient was treated with blood pressure management, close observation. Patient suffers from dense right hemiparesis. Social Security pending, unable to be discharged to local facility due to no payer source. Because of those reasons is recommended the patient be transferred to [place] for further management and continued care. Upon evaluating the patient she does have significantly dense right hemiparesis. Patient obviously unable to function on her own or ambulate. Respiratory: DENIES: Cough, Shortness of breath, Wheezing Cardiovascular: DENIES: Chest pain, Palpitations Gastrointestinal: DENIES: Abdominal pain, Change in stools Neurological: COMPLAINS OF: Weakness, DENIES: Headache Objective Vitals Vital Signs Date Time Temp Pulse Resp B/P Pulse Ox O2 Delivery O2 Flow Rate FiO2 06/18/16 00:00 97.5 76 20 133/62 98 06/17/16 20:00 96.6 78 20 103/70 100 06/17/16 17:09 81 06/17/16 13:06 97.6 68 18 96/61 96 I/O 06/17/16 06/17/16 06/17/16 06/18/16 06/18/16 06/18/16 07:00 15:00 23:00 07:00 15:00 23:00 Intake Total 240 ml 120 ml 240 ml Balance 240 ml 120 ml 240 ml Intake Oral 240 ml 120 ml 240 ml # Voids 4 2 2 # Bowel Movements 0 0 0 Objective Remarks GENERAL: Well-developed, well-nourished, in no acute distress. alert and orientated HEENT: Head is normocephalic without any lesions or masses noted right facial droop. Eyes: Pupils equal round reactive to light. Extraocular muscles are intact. Conjunctivae were clear. NECK: Supple without any masses. Trachea midline no deviation. No JVD, CARDIAC: Regular rhythm, regular rate. S1/S2 are heard. No murmurs gallops or rubs. LUNGS: Clear to auscultation bilaterally. No wheeze, rhonchi or rales. No use of accessory muscles on inspiration or expiration. ABDOMEN: Soft, nontender. Nondistended. Bowel sounds heard in all 4 quadrants. No organomegaly or masses. Negative rebound, negative guarding EXTREMITIES: No edema, pulses are equal bilaterally. No cyanosis or clubbing NEUROLOGY: Mood and affect appear appropriate. Dense right hemiparesis Procedures None Urinary Catheter: No Vascular Central Line Catheter: No A/P Assessment and Plan Left basal ganglia bleed with 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 Venegas has evaluated the patient. The bleed has been stable on repeat head CT. No surgery needed. Speech therapy has been following the patient and last documented diet recommendation was 05/24/16 to indicate mechanical soft diet with thin liquids. As per continue speech therapy it would appear as if the patient has been refusing therapy for at least 90% of the time. We'll need to continue speech therapy until they indicate the patient no longer requires therapy Occupational therapy indicates OT at at rehabilitation. Will need continued occupational therapy evaluation on a daily basis until patient cleared by OT for discharge or patient's functional capacity can no longer improve Physical therapy indicating PT at rehabilitation. We'll continue physical therapy 7 days a week until patient cleared by PT for discharge or patient's capacity can no longer improved. Right arm pain, controlled Continue Neurontin for right arm neuropathic pain Hypertension, Controlled. Norvasc 10 mg daily, lisinopril 20 mg daily, Lopressor 50 mg twice daily Alcohol and cocaine abuse dependence patient previously counseled. Status post thiamine Tobacco abuse Counseled on cessation Chronic hepatitis C, chronic Patient with chronic transaminitis liver ultrasound showed fatty infiltration Abdominal pain. Resolved No fever and she is hemodynamically stable. Screening labs with CBC, BMP and urinalysis negative. Lipase normal. Continue GI prophylaxis. Maalox/simethicone and Tums as needed. Continue to monitor Thrombocytopenia, resolved Hospice secondary to chronic alcohol use, hepatitis C, worsened by hemorrhage Candidal rash, improved. Continue nystatin topical and frequent position changes. Anxiety. Controlled Seroquel low-dose initiated on 05/27. Mood seems OK. DVT prophylaxis Sequential compression devices. Discharge Planning Discharge disposition, apparently having discharge difficulties. They are working on obtaining so security benefits. Also indicating in case management notes that the patient is part of the [employer] [place] in [place], they are trying to contact them at this time. Jaycob Rebolledo Jun 18, 2016 09:21 Yarely Buckley DO Jun 18, 2016 14:04
[2016-06-18] MEDS ORDERED: ONDANSETRON ODT 4 MG TAB PO PRN (10:00)
[2016-06-18] MEDS: LISINOPRIL 20 MG TAB PO SCH (10:15)
[2016-06-18] MEDS: METOPROLOL TARTRATE 25 MG TAB PO SCH ×2 (10:15→20:08)
[2016-06-18] MEDS: RANITIDINE HCL 150 MG TAB PO SCH ×2 (10:15→20:09)
[2016-06-18] MEDS: GABAPENTIN 100 MG CAP PO SCH ×3 (10:15→18:24)
[2016-06-18] MEDS: POTASSIUM CHLORIDE 10 MEQ CONTROLLED RELEASE TAB PO SCH (10:15)
[2016-06-18 10:29] LABS: POTASSIUM 3.9 MEQ/L (3.5-5.1)
[2016-06-18 10:32] LABS: BICARBONATE 23.9 MEQ/L (21.0-32.0)
[2016-06-18 12:09] VITALS: BP 112/78; PULSE 77; RESP 20; TEMP 96.8; O2SAT 96
[2016-06-18 16:00] VITALS: BP 93/62; PULSE 72; RESP 20; TEMP 97; O2SAT 98
[2016-06-18 19:15] VITALS: BP 98/60; PULSE 84; RESP 18; TEMP 97.6; O2SAT 96
[2016-06-18] MEDS: QUEtiapine FUMARATE 25 MG TAB PO SCH (20:09)
[2016-06-19] MEDS: NYSTATIN 100,000 UNIT/GM CREAM 15 GM TOPICAL SCH ×3 (04:10→16:48)
[2016-06-19] MEDS: ACETAMINOPHEN 325 MG TAB PO PRN (04:10)
[2016-06-19 08:00] VITALS: BP 92/63; PULSE 77; RESP 20; TEMP 96.8; O2SAT 94
[2016-06-19 08:30] VITALS: O2SAT 94
[2016-06-19] MEDS: GABAPENTIN 100 MG CAP PO SCH ×3 (08:47→15:40)
[2016-06-19] MEDS: POTASSIUM CHLORIDE 10 MEQ CONTROLLED RELEASE TAB PO SCH (08:47)
[2016-06-19] MEDS: METOPROLOL TARTRATE 25 MG TAB PO SCH ×2 (08:47→20:29)
[2016-06-19] MEDS: RANITIDINE HCL 150 MG TAB PO SCH ×2 (08:47→20:29)
[2016-06-19] MEDS: LISINOPRIL 20 MG TAB PO SCH (08:47)
[2016-06-19 12:00] VITALS: BP 89/58; PULSE 65; RESP 20; TEMP 96.7; O2SAT 97
--- NOTE | 2016-06-19 13:52 | HHI.PR ---
Subjective Remarks Patient is doing well. No acute concerns. Objective Vitals Vital Signs Date Time Temp Pulse Resp B/P Pulse Ox O2 Delivery O2 Flow Rate FiO2 06/19/16 08:30 94 21 06/19/16 08:00 96.8 77 20 92/63 94 06/18/16 19:15 97.6 84 18 98/60 96 06/18/16 16:00 97.0 72 20 93/62 98 I/O 06/18/16 06/18/16 06/18/16 06/19/16 06/19/16 06/19/16 07:00 15:00 23:00 07:00 15:00 23:00 Intake Total 240 ml 650 ml 240 ml 1000 ml Balance 240 ml 650 ml 240 ml 1000 ml Intake Oral 240 ml 650 ml 240 ml 1000 ml # Voids 2 5 1 1 # Bowel Movements 0 0 Result Diagram: 06/18/16 1015 Imaging Last Impressions Chest X-Ray 05/12/16 0600 Signed Impressions: Service Date/Time: Thursday, May 12, 2016 05:16 - CONCLUSION: No acute disease. Nadir Hebert MD Liver Ultrasound 05/11/16 0000 Signed Impressions: Service Date/Time: Wednesday, May 11, 2016 08:30 - CONCLUSION: 1. Liver is slightly echogenic which can be seen with fatty infiltration/hepatocellular dysfunction. 2. No evidence for cholelithiasis. Geremias Smith MD Head Magnetic Resonance Angiography 05/11/16 0000 Signed Impressions: Service Date/Time: Wednesday, May 11, 2016 16:21 - CONCLUSION: No acute [facility] [place] vascular abnormalities. Jeremy Toledo MD Brain MRI 05/11/16 0000 Signed Impressions: Service Date/Time: Wednesday, May 11, 2016 16:21 - CONCLUSION: 1. Focal acute intraparenchymal hemorrhage in the left thalamus measuring 2.8 cm most likely representing a focal hemorrhagic infarction. 2. Bilateral cortical atrophy and mild chronic white matter changes. 3. No enhancing mass occupying lesions are demonstrated. Estrada Vigil MD Abdomen X-Ray 05/11/16 0000 Signed Impressions: Service Date/Time: Wednesday, May 11, 2016 16:03 - CONCLUSION: No evidence of obstruction. No MRI incompatible foreign body is identified. Estrada Vigil MD Head CT 05/10/16 1431 Signed Impressions: Service Date/Time: Tuesday, May 10, 2016 15:07 - CONCLUSION: 1. 2.3 cm left thalamic hypertensive type hemorrhage with approximately 4 mm of [id number] subfalcine shift. 2. Mild periventricular small vessel ischemic demyelination. 3. Results were called to Dr. Barboza at the time of this dictation. Nicholas Dove MD Objective Remarks GENERAL: Well-developed, well-nourished, in no acute distress. alert and orientated HEENT: Head is normocephalic without any lesions or masses noted right facial droop. Eyes: Pupils equal round reactive to light. Extraocular muscles are intact. Conjunctivae were clear. NECK: Supple without any masses. Trachea midline no deviation. No JVD, CARDIAC: Regular rhythm, regular rate. S1/S2 are heard. No murmurs gallops or rubs. LUNGS: Clear to auscultation bilaterally. No wheeze, rhonchi or rales. No use of accessory muscles on inspiration or expiration. ABDOMEN: Soft, nontender. Nondistended. Bowel sounds heard in all 4 quadrants. No organomegaly or masses. Negative rebound, negative guarding EXTREMITIES: No edema, pulses are equal bilaterally. No cyanosis or clubbing NEUROLOGY: Mood and affect appear appropriate. Dense right hemiparesis Procedures None A/P Problem List: (1) Basal ganglia hemorrhage Status: Acute (2) Hemiparesis affecting right side as late effect of cerebrovascular accident (CVA) Status: Acute (3) Hypertensive emergency Status: Resolved (4) Metabolic acidosis Status: Resolved (5) UTI (urinary tract infection) Status: Resolved Assessment and Plan Left basal ganglia bleed with 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 Venegas has evaluated the patient. The bleed has been stable on repeat head CT. No surgery needed. Speech therapy has been following the patient and last documented diet recommendation was 05/24/16 to indicate mechanical soft diet with thin liquids. As per continue speech therapy it would appear as if the patient has been refusing therapy for at least 90% of the time. We'll need to continue speech therapy until they indicate the patient no longer requires therapy Occupational therapy indicates OT at at rehabilitation. Will need continued occupational therapy evaluation on a daily basis until patient cleared by OT for discharge or patient's functional capacity can no longer improve Physical therapy indicating PT at rehabilitation. We'll continue physical therapy 7 days a week until patient cleared by PT for discharge or patient's capacity can no longer improved. Right arm pain, controlled Continue Neurontin for right arm neuropathic pain Hypertension, Controlled. Norvasc 10 mg daily, lisinopril 20 mg daily, Lopressor 50 mg twice daily Alcohol and cocaine abuse dependence patient previously counseled. Status post thiamine Tobacco abuse Counseled on cessation Chronic hepatitis C, chronic Patient with chronic transaminitis liver ultrasound showed fatty infiltration Abdominal pain. Resolved No fever and she is hemodynamically stable. Screening labs with CBC, BMP and urinalysis negative. Lipase normal. Continue GI prophylaxis. Maalox/simethicone and Tums as needed. Continue to monitor Thrombocytopenia, resolved Hospice secondary to chronic alcohol use, hepatitis C, worsened by hemorrhage Candidal rash, improved. Continue nystatin topical and frequent position changes. Anxiety. Controlled Seroquel low-dose initiated on 05/27. Mood seems OK. DVT prophylaxis Sequential compression devices. Discharge Planning Discharge disposition, apparently having discharge difficulties. They are working on obtaining so security benefits. Also indicating in case management notes that the patient is part of the [facility] in [place], they are trying to contact them at this time. Yarely Buckley DO Jun 19, 2016 13:52
[2016-06-19] MEDS: CALCIUM CARBONATE 500 MG CHEWABLE TAB CHEW PRN (15:09)
[2016-06-19 16:00] VITALS: BP 103/71; PULSE 70; RESP 20; TEMP 97; O2SAT 98
[2016-06-19] MEDS: QUEtiapine FUMARATE 25 MG TAB PO SCH (20:29)
[2016-06-19 21:32] VITALS: BP 101/69; PULSE 80; RESP 18; TEMP 98.7; O2SAT 95
[2016-06-20] MEDS: NYSTATIN 100,000 UNIT/GM CREAM 15 GM TOPICAL SCH ×4 (00:30→16:44)
[2016-06-20 08:00] VITALS: BP 108/71; PULSE 77; RESP 20; TEMP 96.5; O2SAT 95
[2016-06-20] MEDS: POTASSIUM CHLORIDE 10 MEQ CONTROLLED RELEASE TAB PO SCH (09:00)
[2016-06-20] MEDS: LISINOPRIL 20 MG TAB PO SCH (09:46)
[2016-06-20] MEDS: RANITIDINE HCL 150 MG TAB PO SCH ×2 (09:46→21:51)
[2016-06-20] MEDS: METOPROLOL TARTRATE 25 MG TAB PO SCH ×2 (09:46→21:51)
[2016-06-20] MEDS: GABAPENTIN 100 MG CAP PO SCH ×3 (09:46→16:44)
--- NOTE | 2016-06-20 11:24 | HHI.PR ---
Subjective Remarks Ms. Gabriel is doing well. No acute concerns. Taking a nap. Objective Vitals Vital Signs Date Time Temp Pulse Resp B/P Pulse Ox O2 Delivery O2 Flow Rate FiO2 06/20/16 08:00 96.5 77 20 108/71 95 06/19/16 21:32 98.7 80 18 101/69 95 06/19/16 16:00 97.0 70 20 103/71 98 06/19/16 12:00 96.7 65 20 89/58 97 I/O 06/19/16 06/19/16 06/19/16 06/20/16 06/20/16 06/20/16 07:00 15:00 23:00 07:00 15:00 23:00 Intake Total 1000 ml 500 ml Output Total 1 ml 200 ml 500 ml Balance 1000 ml 499 ml -200 ml -500 ml Intake Oral 1000 ml 500 ml Output Urine Total 200 ml 500 ml Stool Total 1 ml # Voids 1 10 5 3 # Bowel Movements 1 0 Result Diagram: 06/18/16 1015 Objective Remarks GENERAL: Well-developed, well-nourished, in no acute distress. alert and orientated HEENT: Head is normocephalic without any lesions or masses noted right facial droop. Eyes: Pupils equal round reactive to light. Extraocular muscles are intact. Conjunctivae were clear. NECK: Supple without any masses. Trachea midline no deviation. No JVD, CARDIAC: Regular rhythm, regular rate. S1/S2 are heard. No murmurs gallops or rubs. LUNGS: Clear to auscultation bilaterally. No wheeze, rhonchi or rales. No use of accessory muscles on inspiration or expiration. ABDOMEN: Soft, nontender. Nondistended. Bowel sounds heard in all 4 quadrants. No organomegaly or masses. Negative rebound, negative guarding EXTREMITIES: No edema, pulses are equal bilaterally. No cyanosis or clubbing NEUROLOGY: Mood and affect appear appropriate. Dense right hemiparesis Procedures None A/P Problem List: (1) Basal ganglia hemorrhage Status: Acute (2) Hemiparesis affecting right side as late effect of cerebrovascular accident (CVA) Status: Acute (3) Hypertensive emergency Status: Resolved (4) Metabolic acidosis Status: Resolved (5) UTI (urinary tract infection) Status: Resolved Assessment and Plan Left basal ganglia bleed with 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 Venegas has evaluated the patient. The bleed has been stable on repeat head CT. No surgery needed. Speech therapy has been following the patient and last documented diet recommendation was 05/24/16 to indicate mechanical soft diet with thin liquids. As per continue speech therapy it would appear as if the patient has been refusing therapy for at least 90% of the time. We'll need to continue speech therapy until they indicate the patient no longer requires therapy Occupational therapy indicates OT at at rehabilitation. Will need continued occupational therapy evaluation on a daily basis until patient cleared by OT for discharge or patient's functional capacity can no longer improve Physical therapy indicating PT at rehabilitation. We'll continue physical therapy 7 days a week until patient cleared by PT for discharge or patient's capacity can no longer improved. Right arm pain, controlled Continue Neurontin for right arm neuropathic pain Hypertension, Controlled. Norvasc 10 mg daily, lisinopril 20 mg daily, Lopressor 50 mg twice daily Alcohol and cocaine abuse dependence patient previously counseled. Status post thiamine Tobacco abuse Counseled on cessation Chronic hepatitis C, chronic Patient with chronic transaminitis liver ultrasound showed fatty infiltration Abdominal pain. Resolved No fever and she is hemodynamically stable. Screening labs with CBC, BMP and urinalysis negative. Lipase normal. Continue GI prophylaxis. Maalox/simethicone and Tums as needed. Continue to monitor Thrombocytopenia, resolved Hospice secondary to chronic alcohol use, hepatitis C, worsened by hemorrhage Candidal rash, improved. Continue nystatin topical and frequent position changes. Anxiety. Controlled Seroquel low-dose initiated on 05/27. Mood seems OK. DVT prophylaxis Sequential compression devices. Discharge Planning Discharge disposition, apparently having discharge difficulties. They are working on obtaining so security benefits. Also indicating in case management notes that the patient is part of the [facility] [place] [place] in [place], they are trying to contact them at this time. Yarely Buckley DO Jun 20, 2016 11:23
[2016-06-20 20:00] VITALS: BP 98/61; PULSE 75; RESP 20; TEMP 96.4; O2SAT 96
[2016-06-20] MEDS: QUEtiapine FUMARATE 25 MG TAB PO SCH (21:51)
[2016-06-21] VITALS: BP 106/68; PULSE 68; RESP 18; TEMP 97.9; O2SAT 95
[2016-06-21] MEDS: NYSTATIN 100,000 UNIT/GM CREAM 15 GM TOPICAL SCH ×5 (00:49→21:03)
[2016-06-21] MEDS: GABAPENTIN 100 MG CAP PO SCH ×3 (09:47→18:09)
[2016-06-21] MEDS: METOPROLOL TARTRATE 25 MG TAB PO SCH ×2 (09:47→20:57)
[2016-06-21] MEDS: POTASSIUM CHLORIDE 10 MEQ CONTROLLED RELEASE TAB PO SCH (09:48)
[2016-06-21] MEDS: RANITIDINE HCL 150 MG TAB PO SCH ×2 (09:48→21:02)
[2016-06-21] MEDS: LISINOPRIL 20 MG TAB PO SCH (09:48)
[2016-06-21 10:00] VITALS: BP 87/65; PULSE 77; RESP 18; TEMP 97.1; O2SAT 95
--- NOTE | 2016-06-21 14:03 | HHI.PR ---
Subjective Remarks Patient seen and examined today. Patient denies any new complaints. No change in medical status. Objective Vitals Vital Signs Date Time Temp Pulse Resp B/P Pulse Ox O2 Delivery O2 Flow Rate FiO2 06/21/16 10:00 97.1 77 18 87/65 95 06/21/16 00:00 97.9 68 18 106/68 95 06/20/16 20:00 96.4 75 20 98/61 96 I/O 06/20/16 06/20/16 06/20/16 06/21/16 06/21/16 06/21/16 07:00 15:00 23:00 07:00 15:00 23:00 Intake Total 600 ml Output Total 500 ml Balance -500 ml 600 ml Intake Oral 600 ml Output Urine Total 500 ml # Voids 3 5 6 2 # Bowel Movements 1 1 0 Result Diagram: 06/18/16 1015 Objective Remarks GENERAL: Well-developed, well-nourished, in no acute distress. alert and orientated HEENT: Head is normocephalic without any lesions or masses noted right facial droop. Eyes: Pupils equal round reactive to light. Extraocular muscles are intact. Conjunctivae were clear. NECK: Supple without any masses. Trachea midline no deviation. No JVD, CARDIAC: Regular rhythm, regular rate. S1/S2 are heard. No murmurs gallops or rubs. LUNGS: Clear to auscultation bilaterally. No wheeze, rhonchi or rales. No use of accessory muscles on inspiration or expiration. ABDOMEN: Soft, nontender. Nondistended. Bowel sounds heard in all 4 quadrants. No organomegaly or masses. Negative rebound, negative guarding EXTREMITIES: No edema, pulses are equal bilaterally. No cyanosis or clubbing NEUROLOGY: Mood and affect appear appropriate. Dense right hemiparesis Procedures None Urinary Catheter: No Vascular Central Line Catheter: No A/P Assessment and Plan Left basal ganglia bleed with 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 Venegas has evaluated the patient. The bleed has been stable on repeat head CT. No surgery needed. Speech therapy has been following the patient and last documented diet recommendation was 05/24/16 to indicate mechanical soft diet with thin liquids. As per continue speech therapy it would appear as if the patient has been refusing therapy for at least 90% of the time. We'll need to continue speech therapy until they indicate the patient no longer requires therapy Occupational therapy indicates OT at at rehabilitation. Will need continued occupational therapy evaluation on a daily basis until patient cleared by OT for discharge or patient's functional capacity can no longer improve Physical therapy indicating PT at rehabilitation. We'll continue physical therapy 7 days a week until patient cleared by PT for discharge or patient's capacity can no longer improved. Right arm pain, controlled Continue Neurontin for right arm neuropathic pain Hypertension, Controlled. Norvasc 10 mg daily, lisinopril 20 mg daily, Lopressor 50 mg twice daily Alcohol and cocaine abuse dependence patient previously counseled. Status post thiamine Tobacco abuse Counseled on cessation Chronic hepatitis C, chronic Patient with chronic transaminitis liver ultrasound showed fatty infiltration Abdominal pain. Resolved No fever and she is hemodynamically stable. Screening labs with CBC, BMP and urinalysis negative. Lipase normal. Continue GI prophylaxis. Maalox/simethicone and Tums as needed. Continue to monitor Thrombocytopenia, resolved Hospice secondary to chronic alcohol use, hepatitis C, worsened by hemorrhage Candidal rash, improved. Continue nystatin topical and frequent position changes. Anxiety. Controlled Seroquel low-dose initiated on 05/27. Mood seems OK. DVT prophylaxis Sequential compression devices. Discharge Planning Discharge disposition, apparently having discharge difficulties. They are working on obtaining so security benefits. Also indicating in case management notes that the patient is part of the [employer] [place] in [place], they are trying to contact them at this time. Jaycob Rebolledo Jun 21, 2016 14:03
[2016-06-21 20:00] VITALS: BP 88/59; PULSE 71; RESP 20; TEMP 98.1; O2SAT 95
[2016-06-21] MEDS: QUEtiapine FUMARATE 25 MG TAB PO SCH (21:02)
[2016-06-22] MEDS: NYSTATIN 100,000 UNIT/GM CREAM 15 GM TOPICAL SCH ×4 (06:30→23:33)
[2016-06-22] MEDS: METOPROLOL TARTRATE 25 MG TAB PO SCH ×2 (08:44→21:56)
[2016-06-22] MEDS: RANITIDINE HCL 150 MG TAB PO SCH ×2 (08:45→21:56)
[2016-06-22] MEDS: POTASSIUM CHLORIDE 10 MEQ CONTROLLED RELEASE TAB PO SCH (08:45)
[2016-06-22] MEDS: LISINOPRIL 20 MG TAB PO SCH (08:46)
[2016-06-22] MEDS: GABAPENTIN 100 MG CAP PO SCH ×3 (08:46→18:27)
[2016-06-22 09:43] VITALS: BP 96/69; PULSE 76; RESP 15; TEMP 96.4; O2SAT 96
--- NOTE | 2016-06-22 09:55 | HHI.PR ---
Subjective Remarks Patient seen and examined today. Patient denies any new complaints. No change in clinical status. Respiratory: DENIES: Cough, Shortness of breath, Wheezing Cardiovascular: DENIES: Chest pain, Palpitations Gastrointestinal: DENIES: Abdominal pain, Change in stools Neurological: COMPLAINS OF: Weakness, DENIES: Headache, Numbness Objective Vitals Vital Signs Date Time Temp Pulse Resp B/P Pulse Ox O2 Delivery O2 Flow Rate FiO2 06/22/16 09:43 96.4 76 15 96/69 96 06/21/16 20:00 98.1 71 20 88/59 95 06/21/16 10:00 97.1 77 18 87/65 95 I/O 06/21/16 06/21/16 06/21/16 06/22/16 06/22/16 06/22/16 07:00 15:00 23:00 07:00 15:00 23:00 Intake Total 920 ml 120 ml Output Total 0 ml 400 ml Balance 920 ml -280 ml Intake Oral 920 ml 120 ml Output Urine Total 400 ml Stool Total 0 ml # Voids 2 5 2 # Bowel Movements 0 1 Result Diagram: 06/18/16 1015 Objective Remarks GENERAL: Well-developed, well-nourished, in no acute distress. alert and orientated HEENT: Head is normocephalic without any lesions or masses noted right facial droop. Eyes: Pupils equal round reactive to light. Extraocular muscles are intact. Conjunctivae were clear. NECK: Supple without any masses. Trachea midline no deviation. No JVD, CARDIAC: Regular rhythm, regular rate. S1/S2 are heard. No murmurs gallops or rubs. LUNGS: Clear to auscultation bilaterally. No wheeze, rhonchi or rales. No use of accessory muscles on inspiration or expiration. ABDOMEN: Soft, nontender. Nondistended. Bowel sounds heard in all 4 quadrants. No organomegaly or masses. Negative rebound, negative guarding EXTREMITIES: No edema, pulses are equal bilaterally. No cyanosis or clubbing NEUROLOGY: Mood and affect appear appropriate. Dense right hemiparesis Procedures None Urinary Catheter: No Vascular Central Line Catheter: No A/P Assessment and Plan Left basal ganglia bleed with 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 Venegas has evaluated the patient. The bleed has been stable on repeat head CT. No surgery needed. Speech therapy has been following the patient and last documented diet recommendation was 05/24/16 to indicate mechanical soft diet with thin liquids. As per continue speech therapy it would appear as if the patient has been refusing therapy for at least 90% of the time. We'll need to continue speech therapy until they indicate the patient no longer requires therapy Occupational therapy indicates OT at rehabilitation. Will need continued occupational therapy evaluation on a daily basis until patient cleared by OT for discharge or patient's functional capacity can no longer improve Physical therapy indicating PT at rehabilitation. We'll continue physical therapy 7 days a week until patient cleared by PT for discharge or patient's capacity can no longer improved. Right arm pain, controlled Continue Neurontin for right arm neuropathic pain Hypertension, blood pressure on the low side. Norvasc 10 mg daily, lisinopril 20 mg daily, Lopressor 50 mg twice daily, decreased to Lopressor 25 mg twice daily Alcohol and cocaine abuse dependence patient previously counseled. Status post thiamine Tobacco abuse Counseled on cessation Chronic hepatitis C, chronic Patient with chronic transaminitis liver ultrasound showed fatty infiltration Abdominal pain. Resolved No fever and she is hemodynamically stable. Screening labs with CBC, BMP and urinalysis negative. Lipase normal. Continue GI prophylaxis. Maalox/simethicone and Tums as needed. Continue to monitor Thrombocytopenia, resolved Hospice secondary to chronic alcohol use, hepatitis C, worsened by hemorrhage Candidal rash, improved. Continue nystatin topical and frequent position changes. Anxiety. Controlled Seroquel low-dose initiated on 05/27. Mood seems OK. DVT prophylaxis Sequential compression devices. Discharge Planning Discharge disposition, apparently having discharge difficulties. They are working on obtaining so security benefits. Also indicating in case management notes that the patient is part of the [employer] [place] in [place], they are trying to contact them at this time. Jaycob Rebolledo Jun 22, 2016 09:55
[2016-06-22 20:00] VITALS: BP 117/74; PULSE 76; RESP 20; TEMP 96.5; O2SAT 97
[2016-06-22] MEDS: QUEtiapine FUMARATE 25 MG TAB PO SCH (21:56)
[2016-06-23] MEDS: ACETAMINOPHEN 325 MG TAB PO PRN (05:42)
[2016-06-23] MEDS: NYSTATIN 100,000 UNIT/GM CREAM 15 GM TOPICAL SCH ×4 (05:43→22:15)
[2016-06-23 06:31] LABS: AUTOMATED NEUTROPHIL # 5.9 TH/MM3 (1.8-7.7); BASOPHIL % 0.5 % (0.0-2.0); EOSINOPHIL # 0.3 TH/MM3 (0-0.4); EOSINOPHIL % 3.2 % (0.0-4.0); HEMATOCRIT 33.8 % (35.0-46.0); HEMO FLAGS DIFF FINAL; LYMPH % 26.8 % (9.0-44.0); LYMPHOCYTE # 2.6 TH/MM3 (1.0-4.8); MEAN CELL VOLUME 91.6 FL (80.0-100.0); MEAN CORPUSCULAR HEMOGLOBIN 30.8 PG (27.0-34.0); MEAN CORPUSCULAR HGB CONC 33.6 % (32.0-36.0); NEUT % 59.5 % (16.0-70.0); PLATELET COUNT 236 TH/MM3 (150-450); RED BLOOD COUNT 3.69 MIL/MM3 (4.00-5.30); RED CELL DISTRIBUTION WIDTH 13.7 % (11.6-17.2); WHITE BLOOD COUNT 9.8 TH/MM3 (4.0-11.0)
[2016-06-23 06:33] LABS: POTASSIUM 3.7 MEQ/L (3.5-5.1)
[2016-06-23 06:38] LABS: BICARBONATE 19.7 MEQ/L (21.0-32.0); MAGNESIUM 1.8 MG/DL (1.5-2.5)
[2016-06-23 08:00] VITALS: BP 96/65; PULSE 73; RESP 17; TEMP 96.6; O2SAT 98
--- NOTE | 2016-06-23 08:38 | HHI.PR ---
Subjective Remarks Patient seen and examined today. Patient has any new complaints. No change in medical status. Respiratory: DENIES: Cough, Shortness of breath, Wheezing Cardiovascular: DENIES: Chest pain, Palpitations Gastrointestinal: DENIES: Abdominal pain, Change in stools Neurological: DENIES: Headache, Numbness, Weakness Objective Vitals Vital Signs Date Time Temp Pulse Resp B/P Pulse Ox O2 Delivery O2 Flow Rate FiO2 06/22/16 20:00 96.5 76 20 117/74 97 06/22/16 09:43 96.4 76 15 96/69 96 I/O 06/22/16 06/22/16 06/22/16 06/23/16 06/23/16 06/23/16 07:00 15:00 23:00 07:00 15:00 23:00 Intake Total 120 ml 1480 ml 720 ml Output Total 400 ml Balance -280 ml 1480 ml 720 ml Intake Oral 120 ml 1480 ml 720 ml IV Total 0 ml Output Urine Total 400 ml # Voids 2 7 4 # Bowel Movements 1 0 Result Diagram: 06/23/1651906/23/16519 Objective Remarks GENERAL: Well-developed, well-nourished, in no acute distress. alert and orientated HEENT: Head is normocephalic without any lesions or masses noted right facial droop. Eyes: Pupils equal round reactive to light. Extraocular muscles are intact. Conjunctivae were clear. NECK: Supple without any masses. Trachea midline no deviation. No JVD, CARDIAC: Regular rhythm, regular rate. S1/S2 are heard. No murmurs gallops or rubs. LUNGS: Clear to auscultation bilaterally. No wheeze, rhonchi or rales. No use of accessory muscles on inspiration or expiration. ABDOMEN: Soft, nontender. Nondistended. Bowel sounds heard in all 4 quadrants. No organomegaly or masses. Negative rebound, negative guarding EXTREMITIES: No edema, pulses are equal bilaterally. No cyanosis or clubbing NEUROLOGY: Mood and affect appear appropriate. Dense right hemiparesis Procedures None Urinary Catheter: No Vascular Central Line Catheter: No A/P Assessment and Plan Left basal ganglia bleed with 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 Venegas has evaluated the patient. The bleed has been stable on repeat head CT. No surgery needed. Speech therapy has been following the patient and last documented diet recommendation was 05/24/16 to indicate mechanical soft diet with thin liquids. As per continue speech therapy it would appear as if the patient has been refusing therapy for at least 90% of the time. We'll need to continue speech therapy until they indicate the patient no longer requires therapy Occupational therapy indicates OT at rehabilitation. Will need intensive occupational therapy evaluation until patient cleared by OT for discharge or patient's functional capacity can no longer improve Physical therapy indicating PT at rehabilitation. We'll need to continue intensive physical therapy, recommending right AFO Right arm pain, controlled Continue Neurontin for right arm neuropathic pain Hypertension, still blood pressure on the low side. Norvasc 10 mg daily, lisinopril 20 mg daily, decreased to 10 mg daily Lopressor 25 mg twice daily Alcohol and cocaine abuse dependence patient previously counseled. Status post thiamine Tobacco abuse Counseled on cessation Chronic hepatitis C, chronic Patient with chronic transaminitis liver ultrasound showed fatty infiltration Abdominal pain. Resolved No fever and she is hemodynamically stable. Screening labs with CBC, BMP and urinalysis negative. Lipase normal. Continue GI prophylaxis. Maalox/simethicone and Tums as needed. Continue to monitor Thrombocytopenia, resolved Hospice secondary to chronic alcohol use, hepatitis C, worsened by hemorrhage Candidal rash, improved. Continue nystatin topical and frequent position changes. Anxiety. Controlled Seroquel low-dose initiated on 05/27. Mood seems OK. DVT prophylaxis Sequential compression devices. Discharge Planning Discharge disposition, apparently having discharge difficulties. They are working on obtaining so security benefits. Also indicating in case management notes that the patient is part of the [facility] in [place], they are trying to contact them at this time. Jaycob Rebolledo Jun 23, 2016 08:38
[2016-06-23] MEDS: LISINOPRIL 10 MG TAB PO SCH (09:00)
[2016-06-23] MEDS: METOPROLOL TARTRATE 25 MG TAB PO SCH ×2 (09:00→22:13)
[2016-06-23] MEDS: POTASSIUM CHLORIDE 10 MEQ CONTROLLED RELEASE TAB PO SCH (09:32)
[2016-06-23] MEDS: GABAPENTIN 100 MG CAP PO SCH ×3 (09:32→17:25)
[2016-06-23] MEDS: RANITIDINE HCL 150 MG TAB PO SCH ×2 (09:32→22:12)
[2016-06-23 19:15] VITALS: BP 111/76; PULSE 76; RESP 18; TEMP 97.5; O2SAT 100
[2016-06-23] MEDS: QUEtiapine FUMARATE 25 MG TAB PO SCH (22:12)
[2016-06-24] MEDS: ACETAMINOPHEN 325 MG TAB PO PRN (00:23)
[2016-06-24] MEDS: NYSTATIN 100,000 UNIT/GM CREAM 15 GM TOPICAL SCH ×4 (06:30→20:10)
[2016-06-24 08:00] VITALS: BP 147/79; PULSE 72; RESP 20; TEMP 96.1; O2SAT 98
--- NOTE | 2016-06-24 08:39 | HHI.PR ---
Subjective Remarks Patient seen and examined today. Patient denies any new complaints. Patient still with dense hemiparesis on the right side. AFO brace has been provided. Will continue monitor PT/OT recommendations Objective Vitals Vital Signs Date Time Temp Pulse Resp B/P Pulse Ox O2 Delivery O2 Flow Rate FiO2 06/23/16 19:15 97.5 76 18 111/76 100 I/O 06/23/16 06/23/16 06/23/16 06/24/16 06/24/16 06/24/16 06:59 14:59 22:59 06:59 14:59 22:59 Intake Total 720 ml 180 ml 880 ml 980 ml Output Total 1250 ml 400 ml Balance 720 ml 180 ml -370 ml 580 ml Intake Oral 720 ml 180 ml 880 ml 980 ml IV Total 0 ml Output Urine Total 1250 ml 400 ml # Voids 4 # Bowel Movements 0 Result Diagram: 06/23/16 0506/23/16 0520 Objective Remarks GENERAL: Well-developed, well-nourished, in no acute distress. alert and orientated HEENT: Head is normocephalic without any lesions or masses noted right facial droop. Eyes: Pupils equal round reactive to light. Extraocular muscles are intact. Conjunctivae were clear. NECK: Supple without any masses. Trachea midline no deviation. No JVD, CARDIAC: Regular rhythm, regular rate. S1/S2 are heard. No murmurs gallops or rubs. LUNGS: Clear to auscultation bilaterally. No wheeze, rhonchi or rales. No use of accessory muscles on inspiration or expiration. ABDOMEN: Soft, nontender. Nondistended. Bowel sounds heard in all 4 quadrants. No organomegaly or masses. Negative rebound, negative guarding EXTREMITIES: No edema, pulses are equal bilaterally. No cyanosis or clubbing NEUROLOGY: Mood and affect appear appropriate. Dense right hemiparesis Procedures None Urinary Catheter: No Vascular Central Line Catheter: No A/P Assessment and Plan Left basal ganglia bleed with 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 Venegas has evaluated the patient. The bleed has been stable on repeat head CT. No surgery needed. Speech therapy has been following the patient and last documented diet recommendation was 05/24/16 to indicate mechanical soft diet with thin liquids. As per continue speech therapy it would appear as if the patient has been refusing therapy for at least 90% of the time. We'll need to continue speech therapy until they indicate the patient no longer requires therapy Occupational therapy indicates OT at rehabilitation. Will need intensive occupational therapy evaluation until patient cleared by OT for discharge or patient's functional capacity can no longer improve Physical therapy indicating PT at rehabilitation. 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 Norvasc 10 mg daily, lisinopril 10 mg daily Lopressor 25 mg twice daily, decreased to 12.5 mg twice daily Alcohol and cocaine abuse dependence patient previously counseled. Status post thiamine Tobacco abuse Counseled on cessation Chronic hepatitis C, chronic Patient with chronic transaminitis liver ultrasound showed fatty infiltration Abdominal pain. Resolved No fever and she is hemodynamically stable. Screening labs with CBC, BMP and urinalysis negative. Lipase normal. Continue GI prophylaxis. Maalox/simethicone and Tums as needed. Continue to monitor Thrombocytopenia, resolved Hospice secondary to chronic alcohol use, hepatitis C, worsened by hemorrhage Candidal rash, improved. Continue nystatin topical and frequent position changes. Anxiety. Controlled Seroquel low-dose initiated on 05/27. Mood seems OK. DVT prophylaxis Sequential compression devices. Discharge Planning Discharge disposition, apparently having discharge difficulties. They are working on obtaining so security benefits. Also indicating in case management notes that the patient is part of the [employer] in [place], they are trying to contact them at this time. Jaycob Rebolledo Jun 24, 2016 08:39
[2016-06-24] MEDS: METOPROLOL TARTRATE 25 MG TAB PO SCH ×2 (09:00→20:09)
[2016-06-24] MEDS: GABAPENTIN 100 MG CAP PO SCH ×3 (09:05→17:42)
[2016-06-24] MEDS: RANITIDINE HCL 150 MG TAB PO SCH ×2 (09:05→20:09)
[2016-06-24] MEDS: POTASSIUM CHLORIDE 10 MEQ CONTROLLED RELEASE TAB PO SCH (09:05)
[2016-06-24] MEDS: LISINOPRIL 10 MG TAB PO SCH (09:05)
[2016-06-24 20:00] VITALS: BP 121/76; PULSE 82; RESP 20; TEMP 97; O2SAT 98
[2016-06-24] MEDS: QUEtiapine FUMARATE 25 MG TAB PO SCH (20:09)
[2016-06-25 00:20] VITALS: BP 109/74; PULSE 73; RESP 20; TEMP 97.9; O2SAT 97
[2016-06-25 04:00] VITALS: BP 112/76; PULSE 73; RESP 20; TEMP 96.9; O2SAT 97
[2016-06-25] MEDS: NYSTATIN 100,000 UNIT/GM CREAM 15 GM TOPICAL SCH ×4 (06:00→20:04)
[2016-06-25 08:00] VITALS: BP 115/78; PULSE 82; RESP 18; TEMP 97.8; O2SAT 97
--- NOTE | 2016-06-25 08:16 | HHI.PR ---
Subjective Remarks Patient seen and examined today. Patient denies any new complaints. No change in clinical status. Respiratory: DENIES: Cough, Shortness of breath, Wheezing Cardiovascular: DENIES: Chest pain, Palpitations Gastrointestinal: DENIES: Abdominal pain, Change in stools Neurological: COMPLAINS OF: Weakness, DENIES: Headache Objective Vitals Vital Signs Date Time Temp Pulse Resp B/P Pulse Ox O2 Delivery O2 Flow Rate FiO2 06/25/16 04:00 96.9 73 20 112/76 97 06/25/16 00:20 97.9 73 20 109/74 97 06/24/16 20:00 97.0 82 20 121/76 98 I/O 06/24/16 06/24/16 06/24/16 06/25/16 06/25/16 06/25/16 06:59 14:59 22:59 06:59 14:59 22:59 Intake Total 980 ml 600 ml 480 ml 280 ml Output Total 400 ml 1 ml Balance 580 ml 599 ml 480 ml 280 ml Intake Oral 980 ml 600 ml 480 ml 280 ml Output Urine Total 400 ml Stool Total 1 ml # Voids 5 1 2 Result Diagram: 06/23/1651906/23/16519 Objective Remarks GENERAL: Well-developed, well-nourished, in no acute distress. alert and orientated HEENT: Head is normocephalic without any lesions or masses noted right facial droop. Eyes: Pupils equal round reactive to light. Extraocular muscles are intact. Conjunctivae were clear. NECK: Supple without any masses. Trachea midline no deviation. No JVD, CARDIAC: Regular rhythm, regular rate. S1/S2 are heard. No murmurs gallops or rubs. LUNGS: Clear to auscultation bilaterally. No wheeze, rhonchi or rales. No use of accessory muscles on inspiration or expiration. ABDOMEN: Soft, nontender. Nondistended. Bowel sounds heard in all 4 quadrants. No organomegaly or masses. Negative rebound, negative guarding EXTREMITIES: No edema, pulses are equal bilaterally. No cyanosis or clubbing NEUROLOGY: Mood and affect appear appropriate. Dense right hemiparesis Procedures None Urinary Catheter: No Vascular Central Line Catheter: No A/P Assessment and Plan Left basal ganglia bleed with 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 Venegas has evaluated the patient. The bleed has been stable on repeat head CT. No surgery needed. Speech therapy has been following the patient and last documented diet recommendation was 05/24/16 to indicate mechanical soft diet with thin liquids. As per continue speech therapy it would appear as if the patient has been refusing therapy for at least 90% of the time. We'll need to continue speech therapy until they indicate the patient no longer requires therapy Occupational therapy indicates OT at rehabilitation. Will need intensive occupational therapy evaluation until patient cleared by OT for discharge or patient's functional capacity can no longer improve Physical therapy indicating PT at rehabilitation. We'll need to continue intensive physical therapy, continue right AFO, PT indicates that able to use AFO because patient does not have any shoes. 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 Status post thiamine Tobacco abuse Counseled on cessation Chronic hepatitis C, chronic Patient with chronic transaminitis liver ultrasound showed fatty infiltration Abdominal pain. Resolved No fever and she is hemodynamically stable. Screening labs with CBC, BMP and urinalysis negative. Lipase normal. Continue GI prophylaxis. Maalox/simethicone and Tums as needed. Continue to monitor Thrombocytopenia, resolved Hospice secondary to chronic alcohol use, hepatitis C, worsened by hemorrhage Candidal rash, improved. Continue nystatin topical and frequent position changes. Anxiety. Controlled Seroquel low-dose initiated on 05/27. Mood seems OK. DVT prophylaxis Sequential compression devices. Discharge Planning Discharge disposition, apparently having discharge difficulties. They are working on obtaining so security benefits. Also indicating in case management notes that the patient is part of the [employer] [facility] in [place], they are trying to contact them at this time. Jaycob Rebolledo Jun 25, 2016 08:16
[2016-06-25] MEDS: METOPROLOL TARTRATE 25 MG TAB PO SCH ×2 (10:29→20:02)
[2016-06-25] MEDS: LISINOPRIL 10 MG TAB PO SCH (10:29)
[2016-06-25] MEDS: RANITIDINE HCL 150 MG TAB PO SCH ×2 (10:29→20:02)
[2016-06-25] MEDS: GABAPENTIN 100 MG CAP PO SCH ×3 (10:29→16:23)
[2016-06-25] MEDS: POTASSIUM CHLORIDE 10 MEQ CONTROLLED RELEASE TAB PO SCH (10:29)
[2016-06-25] MEDS: ALUMINUM/MAGNESIUM/SIMETH 30 ML CUP PO PRN (16:23)
[2016-06-25 20:00] VITALS: BP 90/60; PULSE 81; RESP 16; TEMP 98.3; O2SAT 97
[2016-06-25] MEDS: QUEtiapine FUMARATE 25 MG TAB PO SCH (20:02)
[2016-06-26] MEDS: NYSTATIN 100,000 UNIT/GM CREAM 15 GM TOPICAL SCH ×4 (06:15→21:21)
[2016-06-26 08:15] VITALS: BP 112/70; PULSE 78; RESP 16; TEMP 97.1; O2SAT 95
[2016-06-26] MEDS: LISINOPRIL 10 MG TAB PO SCH (11:29)
[2016-06-26] MEDS: GABAPENTIN 100 MG CAP PO SCH ×3 (11:29→18:49)
[2016-06-26] MEDS: POTASSIUM CHLORIDE 10 MEQ CONTROLLED RELEASE TAB PO SCH (11:29)
[2016-06-26] MEDS: METOPROLOL TARTRATE 25 MG TAB PO SCH ×2 (11:29→20:37)
[2016-06-26] MEDS: RANITIDINE HCL 150 MG TAB PO SCH ×2 (11:29→21:21)
[2016-06-26 12:30] VITALS: BP 138/94; PULSE 82; RESP 20; TEMP 97.9; O2SAT 96
--- NOTE | 2016-06-26 16:22 | HHI.PR ---
Addendum to Inpatient Note Additional Information Patient was seen and discussed with senior bedside. No medical changes. No change to care plan. Sarina Lee MD Jun 26, 2016 16:22
[2016-06-26 20:00] VITALS: BP 107/72; PULSE 78; RESP 18; TEMP 97.5; O2SAT 96
[2016-06-26] MEDS: QUEtiapine FUMARATE 25 MG TAB PO SCH (21:21)
[2016-06-27] MEDS: NYSTATIN 100,000 UNIT/GM CREAM 15 GM TOPICAL SCH ×4 (06:01→21:03)
[2016-06-27 08:00] VITALS: BP 128/70; PULSE 97; RESP 18; TEMP 98; O2SAT 100
[2016-06-27] MEDS: GABAPENTIN 100 MG CAP PO SCH ×3 (09:00→17:44)
[2016-06-27] MEDS: RANITIDINE HCL 150 MG TAB PO SCH ×2 (09:00→21:02)
[2016-06-27] MEDS: LISINOPRIL 10 MG TAB PO SCH (09:01)
[2016-06-27] MEDS: POTASSIUM CHLORIDE 10 MEQ CONTROLLED RELEASE TAB PO SCH (09:01)
[2016-06-27] MEDS: METOPROLOL TARTRATE 25 MG TAB PO SCH ×2 (09:01→21:00)
--- NOTE | 2016-06-27 15:12 | HHI.PR ---
Addendum to Inpatient Note Additional Information No acute concerns. No changes to care plan. Sarina Lee MD Jun 27, 2016 15:12
[2016-06-27 20:00] VITALS: BP 103/65; PULSE 76; RESP 20; TEMP 97.8; O2SAT 97
[2016-06-27] MEDS: QUEtiapine FUMARATE 25 MG TAB PO SCH (21:01)
[2016-06-27] MEDS: ACETAMINOPHEN 325 MG TAB PO PRN (21:01)
[2016-06-28] MEDS: NYSTATIN 100,000 UNIT/GM CREAM 15 GM TOPICAL SCH (06:52)
--- NOTE | 2016-06-28 08:15 | HHI.PR ---
Subjective Remarks Patient seen and examined today. Patient states that she is experiencing some burning on urination. She thinks she may have a urinary tract infection. Patient states that she thinks that she is getting feeling back in her right foot. Objective Vitals Vital Signs Date Time Temp Pulse Resp B/P Pulse Ox O2 Delivery O2 Flow Rate FiO2 06/27/16 20:00 97.8 76 20 103/65 97 I/O 06/27/16 06/27/16 06/27/16 06/28/16 06/28/16 06/28/16 07:00 15:00 23:00 07:00 15:00 23:00 Intake Total 720 ml 575 ml 240 ml 240 ml Output Total 450 ml Balance 720 ml 575 ml 240 ml -210 ml Intake Oral 720 ml 575 ml 240 ml 240 ml Output Urine Total 450 ml Bladder Scan Volume Amount 80 ml # Voids 4 4 2 2 # Bowel Movements 0 2 0 0 Objective Remarks GENERAL: Well-developed, well-nourished, in no acute distress. alert and orientated HEENT: Head is normocephalic without any lesions or masses noted right facial droop. Eyes: Pupils equal round reactive to light. Extraocular muscles are intact. Conjunctivae were clear. NECK: Supple without any masses. Trachea midline no deviation. No JVD, CARDIAC: Regular rhythm, regular rate. S1/S2 are heard. No murmurs gallops or rubs. LUNGS: Clear to auscultation bilaterally. No wheeze, rhonchi or rales. No use of accessory muscles on inspiration or expiration. ABDOMEN: Soft, nontender. Nondistended. Bowel sounds heard in all 4 quadrants. No organomegaly or masses. Negative rebound, negative guarding EXTREMITIES: No edema, pulses are equal bilaterally. No cyanosis or clubbing NEUROLOGY: Mood and affect appear appropriate. Dense right hemiparesis Procedures None Urinary Catheter: No Vascular Central Line Catheter: No A/P Assessment and Plan Left basal ganglia bleed with 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 Venegas has evaluated the patient. The bleed has been stable on repeat head CT. No surgery needed. Speech therapy has been following the patient and last documented diet recommendation was 05/24/16 to indicate mechanical soft diet with thin liquids. As per continue speech therapy it would appear as if the patient has been refusing therapy for at least 90% of the time. We'll need to continue speech therapy until they indicate the patient no longer requires therapy Occupational therapy indicates OT at rehabilitation. Will need intensive occupational therapy evaluation until patient cleared by OT for discharge or patient's functional capacity can no longer improve Physical therapy indicating PT at rehabilitation. We'll need to continue intensive physical therapy, continue right AFO, PT indicates that able to use AFO because patient does not have any shoes. 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 Status post thiamine Tobacco abuse Counseled on cessation Chronic hepatitis C, chronic Patient with chronic transaminitis liver ultrasound showed fatty infiltration Abdominal pain. Resolved No fever and she is hemodynamically stable. Screening labs with CBC, BMP and urinalysis negative. Lipase normal. Continue GI prophylaxis. Maalox/simethicone and Tums as needed. Continue to monitor Thrombocytopenia, resolved Hospice secondary to chronic alcohol use, hepatitis C, worsened by hemorrhage Candidal rash, resolved. Continue nystatin topical and frequent position changes. Anxiety. Controlled Seroquel low-dose initiated on 05/27. Mood seems OK. DVT prophylaxis Sequential compression devices. Discharge Planning Discharge disposition, apparently having discharge difficulties. They are working on obtaining so security benefits. Also indicating in case management notes that the patient is part of the [facility] in [place], they are trying to contact them at this time. Jaycob Rebolledo Jun 28, 2016 08:15
[2016-06-28] MEDS: LISINOPRIL 10 MG TAB PO SCH (09:10)
[2016-06-28] MEDS: METOPROLOL TARTRATE 25 MG TAB PO SCH ×2 (09:10→20:16)
[2016-06-28] MEDS: GABAPENTIN 100 MG CAP PO SCH ×3 (09:10→17:22)
[2016-06-28] MEDS: RANITIDINE HCL 150 MG TAB PO SCH ×2 (09:10→20:17)
[2016-06-28] MEDS: POTASSIUM CHLORIDE 10 MEQ CONTROLLED RELEASE TAB PO SCH (09:10)
[2016-06-28 09:41] VITALS: BP 119/84; PULSE 80; RESP 18; TEMP 96.3; O2SAT 100
[2016-06-28 14:26] LABS: BLOOD, URINE NEG (NEG); GLUCOSE,URINE NEG (NEG); KETONE, URINE NEG (NEG); NITRITE,URINE NEG (NEG)
[2016-06-28 14:49] LABS: METHOD OF COLLECTION CLEAN CATCH
[2016-06-28 14:50] LABS: COMMENT (UR) CULTURE INDICATED; CULTURE IF INDICATED CULTURE INDICATED; RBC, URINE 0-3 /hpf (0-3); SQUAMOUS EPITHELIAL CELL URINE 0-5 /hpf (0-5); URINE COLOR YELLOW (YELLW/STRAW); WBC, URINE 15-19 /hpf (0-5)
[2016-06-28 20:00] VITALS: BP 110/67; PULSE 76; RESP 20; TEMP 97.5; O2SAT 96
[2016-06-28] MEDS: ACETAMINOPHEN 325 MG TAB PO PRN (20:17)
[2016-06-28] MEDS: QUEtiapine FUMARATE 25 MG TAB PO SCH (20:17)
[2016-06-29 08:00] VITALS: BP 117/6; PULSE 80; RESP 16; TEMP 97.2; O2SAT 99
[2016-06-29] MEDS: GABAPENTIN 100 MG CAP PO SCH ×3 (08:32→17:28)
[2016-06-29] MEDS: RANITIDINE HCL 150 MG TAB PO SCH ×2 (08:32→20:53)
[2016-06-29] MEDS: METOPROLOL TARTRATE 25 MG TAB PO SCH ×2 (08:32→20:53)
[2016-06-29] MEDS: POTASSIUM CHLORIDE 10 MEQ CONTROLLED RELEASE TAB PO SCH (08:32)
[2016-06-29] MEDS: LISINOPRIL 10 MG TAB PO SCH (08:33)
--- NOTE | 2016-06-29 10:30 | HHI.PR ---
Subjective Remarks Patient seen and examined today. Patient denies any new complaints. No change in clinical status. Objective Vitals Vital Signs Date Time Temp Pulse Resp B/P Pulse Ox O2 Delivery O2 Flow Rate FiO2 06/29/16 08:00 97.2 80 16 117/6 99 06/28/16 20:00 97.5 76 20 110/67 96 I/O 06/28/16 06/28/16 06/28/16 06/29/16 06/29/16 06/29/16 07:00 15:00 23:00 07:00 15:00 23:00 Intake Total 240 ml 1280 ml 480 ml Output Total 450 ml Balance -210 ml 1280 ml 480 ml Intake Oral 240 ml 1280 ml 480 ml Output Urine Total 450 ml # Voids 2 6 2 # Bowel Movements 0 0 0 Objective Remarks GENERAL: Well-developed, well-nourished, in no acute distress. alert and orientated HEENT: Head is normocephalic without any lesions or masses noted right facial droop. Eyes: Pupils equal round reactive to light. Extraocular muscles are intact. Conjunctivae were clear. NECK: Supple without any masses. Trachea midline no deviation. No JVD, CARDIAC: Regular rhythm, regular rate. S1/S2 are heard. No murmurs gallops or rubs. LUNGS: Clear to auscultation bilaterally. No wheeze, rhonchi or rales. No use of accessory muscles on inspiration or expiration. ABDOMEN: Soft, nontender. Nondistended. Bowel sounds heard in all 4 quadrants. No organomegaly or masses. Negative rebound, negative guarding EXTREMITIES: No edema, pulses are equal bilaterally. No cyanosis or clubbing NEUROLOGY: Mood and affect appear appropriate. Dense right hemiparesis Procedures None Urinary Catheter: No Vascular Central Line Catheter: No A/P Assessment and Plan Left basal ganglia bleed with 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 Venegas has evaluated the patient. The bleed has been stable on repeat head CT. No surgery needed. Speech therapy has been following the patient and last documented diet recommendation was 05/24/16 to indicate mechanical soft diet with thin liquids. As per continue speech therapy it would appear as if the patient has been refusing therapy for at least 90% of the time. We'll need to continue speech therapy until they indicate the patient no longer requires therapy Occupational therapy indicates OT at rehabilitation. Will need intensive occupational therapy evaluation until patient cleared by OT for discharge or patient's functional capacity can no longer improve Physical therapy indicating PT at rehabilitation. We'll need to continue intensive physical therapy, continue right AFO, PT indicates that able to use AFO because patient does not have any shoes. 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 Status post thiamine Tobacco abuse Counseled on cessation Chronic hepatitis C, chronic Patient with chronic transaminitis liver ultrasound showed fatty infiltration Anxiety. Controlled Seroquel low-dose initiated on 05/27. Mood seems OK. DVT prophylaxis Sequential compression devices. Discharge Planning Discharge disposition, apparently having discharge difficulties. They are working on obtaining so security benefits. Also indicating in case management notes that the patient is part of the [employer] in [place], they are trying to contact them at this time. Jaycob Rebolledo Jun 29, 2016 10:30
[2016-06-29 20:00] VITALS: BP 111/68; PULSE 87; RESP 18; TEMP 98.7; O2SAT 95
[2016-06-29] MEDS: QUEtiapine FUMARATE 25 MG TAB PO SCH (20:53)
[2016-06-29] MEDS: ACETAMINOPHEN 325 MG TAB PO PRN (20:54)
[2016-06-30 08:00] VITALS: BP 109/68; PULSE 77; RESP 17; TEMP 97.7; O2SAT 97
--- NOTE | 2016-06-30 09:09 | HHI.PR ---
Subjective Remarks Patient seen and examined today. Patient denies any new complaints. No change in clinical status. Objective Vitals Vital Signs Date Time Temp Pulse Resp B/P Pulse Ox O2 Delivery O2 Flow Rate FiO2 06/29/16 20:00 98.7 87 18 111/68 95 I/O 06/29/16 06/29/16 06/29/16 06/30/16 06/30/16 06/30/16 07:00 15:00 23:00 07:00 15:00 23:00 Intake Total 480 ml 480 ml 480 ml Balance 480 ml 480 ml 480 ml Intake Oral 480 ml 480 ml 480 ml IV Total 0 ml 0 ml # Voids 2 4 5 # Bowel Movements 0 Objective Remarks GENERAL: Well-developed, well-nourished, in no acute distress. alert and orientated HEENT: Head is normocephalic without any lesions or masses noted right facial droop. Eyes: Pupils equal round reactive to light. Extraocular muscles are intact. Conjunctivae were clear. NECK: Supple without any masses. Trachea midline no deviation. No JVD, CARDIAC: Regular rhythm, regular rate. S1/S2 are heard. No murmurs gallops or rubs. LUNGS: Clear to auscultation bilaterally. No wheeze, rhonchi or rales. No use of accessory muscles on inspiration or expiration. ABDOMEN: Soft, nontender. Nondistended. Bowel sounds heard in all 4 quadrants. No organomegaly or masses. Negative rebound, negative guarding EXTREMITIES: No edema, pulses are equal bilaterally. No cyanosis or clubbing NEUROLOGY: Mood and affect appear appropriate. Dense right hemiparesis Procedures None Urinary Catheter: No Vascular Central Line Catheter: No A/P Assessment and Plan Left basal ganglia bleed with 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 Venegas has evaluated the patient. The bleed has been stable on repeat head CT. No surgery needed. Speech therapy has been following the patient and last documented diet recommendation was 05/24/16 to indicate mechanical soft diet with thin liquids. As per continue speech therapy it would appear as if the patient has been refusing therapy for at least 90% of the time. We'll need to continue speech therapy until they indicate the patient no longer requires therapy Occupational therapy indicates OT at rehabilitation. Will need intensive occupational therapy evaluation until patient cleared by OT for discharge or patient's functional capacity can no longer improve Physical therapy indicating PT at rehabilitation. We'll need to continue intensive physical therapy, continue right AFO, PT indicates that able to use AFO because patient does not have any shoes. 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 Status post thiamine Tobacco abuse Counseled on cessation Chronic hepatitis C, chronic Patient with chronic transaminitis liver ultrasound showed fatty infiltration Anxiety. Controlled Seroquel low-dose initiated on 05/27. Mood seems OK. DVT prophylaxis Sequential compression devices. Discharge Planning Discharge disposition, apparently having discharge difficulties. They are working on obtaining so security benefits. Also indicating in case management notes that the patient is part of the [facility] in [place], they are trying to contact them at this time. Jaycob Rebolledo Jun 30, 2016 09:09
[2016-06-30] MEDS: GABAPENTIN 100 MG CAP PO SCH ×3 (09:47→16:37)
[2016-06-30] MEDS: LISINOPRIL 10 MG TAB PO SCH (09:47)
[2016-06-30] MEDS: POTASSIUM CHLORIDE 10 MEQ CONTROLLED RELEASE TAB PO SCH (09:47)
[2016-06-30] MEDS: METOPROLOL TARTRATE 25 MG TAB PO SCH ×2 (09:48→21:58)
[2016-06-30] MEDS: RANITIDINE HCL 150 MG TAB PO SCH ×2 (09:48→21:58)
[2016-06-30 20:00] VITALS: BP 124/72; PULSE 65; RESP 18; TEMP 97.1
[2016-06-30] MEDS: QUEtiapine FUMARATE 25 MG TAB PO SCH (21:59)
[2016-06-30] MEDS: ACETAMINOPHEN 325 MG TAB PO PRN (22:02)
[2016-07-01] VITALS: BP 98/62; PULSE 57; RESP 18; TEMP 97.6; O2SAT 98
[2016-07-01 08:00] VITALS: BP 120/76; PULSE 70; RESP 20; TEMP 97.8; O2SAT 96
--- NOTE | 2016-07-01 08:12 | HHI.PR ---
Subjective Remarks Patient seen and examined today. Patient denies any new complaints. No change in clinical status. Objective Vitals Vital Signs Date Time Temp Pulse Resp B/P Pulse Ox O2 Delivery O2 Flow Rate FiO2 07/01/16 00:00 97.6 57 18 98/62 98 06/30/16 20:00 97.1 65 18 124/72 I/O 06/30/16 06/30/16 06/30/16 07/01/16 07/01/16 07/01/16 07:00 15:00 23:00 07:00 15:00 23:00 Intake Total 480 ml 240 ml Output Total 225 ml Balance 480 ml 240 ml -225 ml Intake Oral 480 ml 240 ml IV Total 0 ml Output Urine Total 225 ml # Voids 5 2 1 # Bowel Movements 0 0 Objective Remarks GENERAL: Well-developed, well-nourished, in no acute distress. alert and orientated HEENT: Head is normocephalic without any lesions or masses noted right facial droop. Eyes: Pupils equal round reactive to light. Extraocular muscles are intact. Conjunctivae were clear. NECK: Supple without any masses. Trachea midline no deviation. No JVD, CARDIAC: Regular rhythm, regular rate. S1/S2 are heard. No murmurs gallops or rubs. LUNGS: Clear to auscultation bilaterally. No wheeze, rhonchi or rales. No use of accessory muscles on inspiration or expiration. ABDOMEN: Soft, nontender. Nondistended. Bowel sounds heard in all 4 quadrants. No organomegaly or masses. Negative rebound, negative guarding EXTREMITIES: No edema, pulses are equal bilaterally. No cyanosis or clubbing NEUROLOGY: Mood and affect appear appropriate. Dense right hemiparesis Procedures None Urinary Catheter: No Vascular Central Line Catheter: No A/P Assessment and Plan Left basal ganglia bleed with 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 Venegas has evaluated the patient. The bleed has been stable on repeat head CT. No surgery needed. Speech therapy has been following the patient and last documented diet recommendation was 05/24/16 to indicate mechanical soft diet with thin liquids. As per continue speech therapy it would appear as if the patient has been refusing therapy for at least 90% of the time. We'll need to continue speech therapy until they indicate the patient no longer requires therapy Occupational therapy indicates OT at rehabilitation. Will need intensive occupational therapy evaluation until patient cleared by OT for discharge or patient's functional capacity can no longer improve Physical therapy indicating PT at rehabilitation. We'll need to continue intensive physical therapy, continue right AFO, PT indicates that able to use AFO because patient does not have any shoes. 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 Status post thiamine Tobacco abuse Counseled on cessation Chronic hepatitis C, chronic Patient with chronic transaminitis liver ultrasound showed fatty infiltration Anxiety. Controlled Seroquel low-dose initiated on 05/27. Mood seems OK. DVT prophylaxis Sequential compression devices. Discharge Planning Discharge disposition, apparently having discharge difficulties. They are working on obtaining so security benefits. Also indicating in case management notes that the patient is part of the [employer] in [place], they are trying to contact them at this time. Jaycob Rebolledo Jul 01, 2016 08:12
--- NOTE | 2016-07-01 08:15 | PD.POD.CON ---
Patient Intake Chief Complaint Painful bilateral toenails Consult Requested by ARLENE Reason for Consult Marcelo's toenails bilaterally Primary Care Physician Unknown History of Present Illness Amputation is a 55-year-old alcoholic female who presented with a brain infarct. She has a history of alcoholism and was living in the [facility]. She is complaining of bilateral painful toenails. Coded Allergies: Sulfa (Verified Allergy, Severe, 05/10/16) Preferred Language to Discuss: Ecuadorean Barriers to Learning: None Teaching Method: Discussion Vital Signs Date Time Temp Pulse Resp B/P Pulse Ox O2 Delivery O2 Flow Rate FiO2 07/01/16 00:00 97.6 57 18 98/62 98 06/30/16 20:00 97.1 65 18 124/72 Pain scale used: 0-10 numeric scale Pain score: 1 Medications Current Medications IV Flush 2 ml 2 ml UNSCH PRN IVF FLUSH AFTER USING IV ACCESS; Start 05/10/16 at 14:45; Stop 05/10/16 at 17:21; Status DC Sodium Chloride 1,000 ml @ 999 mls/hr BOLUS ONCE IV Last administered on 05/10at 15:57; Start 05/10/16 at 16:00; Stop 05/10/16 at 17:00; Status DC Sodium Chloride 1,000 ml @ 999 mls/hr BOLUS ONCE IV Last administered on 05/10at 16:45; Start 05/10/16 at 16:00; Stop 05/10/16 at 17:00; Status DC Sodium Chloride (NS 1000 ml Inj) 1,000 ml @ 75 mls/hr [id number] IV Last administered on 05/10/16at 18:08; Start 05/10/16 at 18:00; Stop 05/10/16 at 20:00 ; Status DC IV Flush (NS Flush) 2 ml UNSCH PRN IVF FLUSH AFTER USING IV ACCESS; Start 05/10 at 17:15; Stop 05/10/16 at 20:00; Status DC IV Flush (NS Flush) 2 ml BID IVF ; Start 05/10/16 at 21:00; Stop 05/10/16 at 21: 00; Status DC Pantoprazole Sodium (Protonix Inj) 40 mg DAILY IV Last administered on at 08:45; Start 05/10/16 at 18:00; Stop 05/12/16 at 09:01; Status DC Albuterol/ Ipratropium (Duoneb Neb) 1 ampule Q6HR NEB INH ; Start 05/10/16 at 22:00; Stop 05/10/16 at 22:00; Status DC Albuterol/ Ipratropium (Duoneb Neb) 1 ampule Q2HR NEB PRN INH WHEEZING; Start 05/10/16 at 17:15 Miscellaneous Information 1 Q361D XX ; Start 05/10/16 at 17:15; Stop 05/10/16 at 20:01; Status DC Chlorhexidine Gluconate (Chlorhexidine 2% Cloth) 3 pack Taper DAILY@04 TOP ; Start 05/11/16 at 04:00; Stop 05/11/16 at 04:00; Status DC Chlorhexidine Gluconate 3 pack 3 pack UNSCH PRN TOP HYGIENIC CARE; Start at 17:15; Stop 05/10/16 at 20:01; Status DC Nicardipine HCl 25 mg/Sodium Chloride 260 ml @ 0 mls/hr TITRATE IV Last administered on 05/11/16at 15:45; Start 05/10/16 at 17:15; Stop 05/12/16 at 09:01 ; Status DC Potassium Chloride 100 ml @ 50 mls/hr Q2H PRN IV For Potassium 2.8 - 3.2 mEq/L ; Start 05/10/16 at 19:00; Stop 05/14/16 at 12:44; Status DC Potassium Chloride (KCl 20 Meq Premix Inj) 100 ml @ 50 mls/hr Q2H PRN IV For Potassium 2.8 - 3.2 mEq/L Last administered on 05/12/16at 09:33; Start 05/10/16 at 19:00; Stop 05/14/16 at 12:44; Status DC Potassium Chloride 40 meq 40 meq UNSCH PRN PO/TUBE For Potassium 3.3 - 3.5 mEq/ L Last administered on 05/12/16at 08:45; Start 05/10/16 at 19:00; Stop 05/14/16 at 12:44; Status DC Potassium Chloride 100 ml @ 25 mls/hr UNSCH PRN IV For Potassium 3.3 - 3.5 mEq /L; Start 05/10/16 at 19:00; Stop 05/14/16 at 12:44; Status DC Potassium Chloride 100 ml @ 50 mls/hr Q2H PRN IV For Potassium 3.3 - 3.5 mEq/L ; Start 05/10/16 at 19:00; Stop 05/14/16 at 12:44; Status DC Magnesium Sulfate/ Sodium Chloride (Magnesium Sulfate Inj/NS Inj) 100 ml @ 50 mls/hr UNSCH PRN IV For Magnesium 0.9 - 1.1 mg/dL; Start 05/10/16 at 19:00; Stop 05/14/16 at 12:44; Status DC Magnesium Oxide 800 mg 800 mg UNSCH PRN PO For Magnesium 1.2 - 1.6 mg/dL; Start 05/10/16 at 19:00; Stop 05/14/16 at 12:44; Status DC Magnesium Sulfate/ Sodium Chloride (Magnesium Sulfate Inj/NS Inj) 100 ml @ 50 mls/hr UNSCH PRN IV For Magnesium 1.2 - 1.6 mg/dL; Start 05/10/16 at 19:00; Stop 05/14/16 at 12:44; Status DC Potassium Phosphate 2000 mg 2,000 mg Q4H PRN PO For Phosphorus < 2.5 mg/dL; Start 05/10/16 at 19:00; Stop 05/14/16 at 12:44; Status DC Sodium Phosphate/ Sodium Chloride (Sodium Phosphate Inj/NS 250 ml Inj) 250 ml @ 42 mls/hr UNSCH PRN IV For Phosphorus < 2.5 mg/dL; Start 05/10/16 at 19:00; Stop 05/14/16 at 12:44; Status DC Potassium Chloride (KCl 40 Meq/30 ml Liq) 40 meq UNSCH PRN PO/TUBE SEE LABEL COMMENTS; Start 05/10/16 at 19:00; Stop 05/14/16 at 12:44; Status DC Potassium Phosphate 2000 mg 2,000 mg UNSCH PRN PO/TUBE SEE LABEL COMMENTS; Start 05/10/16 at 19:00; Stop 05/14/16 at 12:44; Status DC Potassium Phosphate 30 mmol/ Sodium Chloride 260 ml @ 42 mls/hr UNSCH PRN IV SEE LABEL COMMENTS; Start 05/10/16 at 19:00; Stop 05/14/16 at 12:45; Status DC Sodium Chloride (NS 1000 ml Inj) 1,000 ml @ 75 mls/hr [id number] IV Last administered on 05/10/16at 19:00; Start 05/10/16 at 19:00; Stop 05/11/16 at 07:55 ; Status DC IV Flush (NS Flush) 2 ml UNSCH PRN IVF FLUSH AFTER USING IV ACCESS Last administered on 05/13/16at 23:17; Start 05/10/16 at 19:00; Stop 06/18/16 at 10:03 ; Status DC IV Flush (NS Flush) 2 ml BID IVF Last administered on 06/17/16at 21:00; Start at 21:00; Stop 06/18/16 at 10:03; Status DC Acetaminophen (Tylenol) 650 mg Q6H PRN PO PAIN 1-10 AND/OR FEVER >101F Last administered on 06/30/16at 22:02; Start 05/10/16 at 19:00 Ondansetron HCl (Zofran Inj) 4 mg Q6H PRN IV NAUSEA OR VOMITING; Start at 19:00; Stop 06/18/16 at 10:03; Status DC Albuterol/ Ipratropium (Duoneb Neb) 1 ampule Q6HR NEB INH Last administered on 05/14/16at 19:58; Start 05/10/16 at 22:00; Stop 05/14/16 at 22:00; Status DC Miscellaneous Information 1 Q361D XX Last administered on 05/10/16at 19:00; Start 05/10/16 at 19:00; Stop 06/18/16 at 10:03; Status DC Chlorhexidine Gluconate (Chlorhexidine 2% Cloth) 3 pack Taper DAILY@04 TOP Last administered on 05/15/16at 04:00; Start 05/11/16 at 04:00; Stop 06/18/16 at 10:03; Status DC Chlorhexidine Gluconate 3 pack 3 pack UNSCH PRN TOP HYGIENIC CARE; Start at 19:00; Stop 06/18/16 at 10:03; Status DC Multivitamins 10 ml/Folic Acid 1 mg/Sodium Chloride 510.2 ml @ 125 mls/hr Q24H IV Last administered on 05/14/16at 22:31; Start 05/10/16 at 21:00; Stop at 20:59; Status DC Levofloxacin/ Dextrose (Levaquin 500 Mg Premix Inj) 100 ml @ 100 mls/hr Q24H IV Last administered on 05/10/16at 21:18; Start 05/10/16 at 21:00; Stop at 09:32; Status DC Morphine Sulfate 1 mg 1 mg Q12H PRN IV PUSH PAIN 1-10 Last administered on 05/18at 23:28; Start 05/11/16 at 04:15; Stop 05/19/16 at 09:25; Status DC Thiamine HCl/ Sodium Chloride (Thiamine Inj/NS Inj) 101 ml @ 101 mls/hr DAILY IV Last administered on 05/23/16at 09:15; Start 05/11/16 at 10:00; Stop at 14:25; Status DC Lorazepam (Ativan Inj) 1 mg Q2H PRN IV PUSH delirium/seizure Last administered on 05/18/16at 23:28; Start 05/11/16 at 08:00; Stop 05/19/16 at 09:25; Status DC Labetalol HCl (Trandate Inj) 10 mg Q4H PRN IV PUSH SYS BP GREATER THAN 160 MMHG ; Start 05/11/16 at 08:00; Stop 05/19/16 at 09:25; Status DC Hydralazine HCl (Apresoline Inj) 20 mg Q4H PRN IV PUSH SYS BP GREATER THAN 160 MMHG; Start 05/11/16 at 08:00; Stop 05/19/16 at 09:25; Status DC Amlodipine Besylate 10 mg 10 mg DAILY PO Last administered on 06/30/16at 09:48; Start 05/11/16 at 09:00 Potassium Chloride 100 ml @ 50 mls/hr Q2H IV Last administered on 05/11/16at 13 :03; Start 05/11/16 at 09:00; Stop 05/11/16 at 12:59; Status DC Potassium Chloride/Sodium Chloride (NS + KCl 40 Meq Inj) 1,000 ml @ 125 mls/hr Q8H IV Last administered on 05/12/16at 08:45; Start 05/11/16 at 08:00; Stop at 09:01; Status DC Gadodiamide 10 ml 10 ml STK-MED ONCE IV Last administered on 05/11/16at 16:55; Start 05/11/16 at 16:55; Stop 05/11/16 at 16:56; Status DC Cefepime HCl 1000 mg/Sodium Chloride 100 ml @ 200 mls/hr Q12H IV Last administered on 05/12/16at 20:49; Start 05/12/16 at 10:00; Stop 05/13/16 at 07:54 ; Status DC Magnesium Sulfate/ Dextrose 100 ml @ 100 mls/hr Q1H IV Last administered on at 09:33; Start 05/12/16 at 09:15; Stop 05/12/16 at 11:14; Status DC Potassium Chloride/Sodium Chloride (NS + KCl 40 Meq Inj) 1,000 ml @ 125 mls/hr Q8H IV Last administered on 05/18/16at 07:29; Start 05/12/16 at 09:15; Stop at 08:20; Status DC Fentanyl Citrate (Sublimaze Inj) 200 mcg STK-MED ONCE .ROUTE ; Start 05/12/16 at 12:59; Stop 05/12/16 at 13:00; Status DC Midazolam HCl (Versed Inj) 10 mg STK-MED ONCE .ROUTE ; Start 05/12/16 at 12:59; Stop 05/12/16 at 13:00; Status DC Vecuronium [place] 10 mg 10 mg STK-MED ONCE .ROUTE ; Start 05/12/16 at 13:00; Stop 05/12/16 at 13:01; Status DC Cefepime HCl/ Sodium Chloride (Maxipime Inj/NS Inj) 100 ml @ 200 mls/hr Q12H IV Last administered on 05/21/16at 11:30; Start 05/13/16 at 10:00; Stop at 15:45; Status DC Potassium Phos/ Sodium Phos (K-Phos Neutral) 250 mg Q8H PO Last administered on 06/06/16at 00:16; Start 05/14/16 at 09:00; Stop 06/06/16 at 09:08; Status DC Metoprolol Tartrate (Lopressor) 25 mg Q12HR PO Last administered on 05/15/16at 22:16; Start 05/14/16 at 09:00; Stop 05/16/16 at 08:50; Status DC Enalaprilat (Vasotec Inj) 1.25 mg Q6H PRN IV PUSH SYS BP GREATER THAN 160 MMHG Last administered on 05/23/16at 03:58; Start 05/14/16 at 17:15; Stop at 10:03; Status DC Lisinopril (Prinivil) 20 mg DAILY PO Last administered on 06/22/16at 08:46; Start 05/14/16 at 17:15; Stop 06/23/16 at 08:38; Status DC Metoprolol Tartrate (Lopressor) 50 mg Q12HR PO Last administered on 06/22/16at 08:44; Start 05/16/16 at 09:00; Stop 06/22/16 at 09:54; Status DC Lorazepam (Ativan Inj) 1 mg Q6H PRN IV PUSH agitation Last administered on at 03:53; Start 05/19/16 at 14:00; Stop 05/27/16 at 11:02; Status DC Gabapentin (Neurontin) 100 mg TID PO Last administered on 06/30/16at 16:37; Start 05/21/16 at 18:00 Thiamine HCl (Vitamin B1) 100 mg DAILY PO Last administered on 06/08/16at 11:28 ; Start 05/24/16 at 09:00; Stop 06/08/16 at 12:00; Status DC Nystatin (Mycostatin Cream) 1 applic Q6HR TOPICAL Last administered on at 06:52; Start 05/25/16 at 12:00; Stop 06/28/16 at 08:16; Status DC Acetaminophen/ Hydrocodone Bitart ([place] 5-325 Mg) 1 tab ONCE ONCE PO Last administered on 05/27/16 13:15; Start 05/27/16 at 11:00; Stop 05/27/16 at 11:08; Status DC Quetiapine Fumarate (SEROquel) 12.5 mg HS PO Last administered on 06/30/16at 21: 59; Start 05/27/16 at 21:00 Quetiapine Fumarate (SEROquel) 12.5 mg ONCE ONCE PO Last administered on 13:14; Start 05/27/16 at 11:00; Stop 05/27/16 at 11:08; Status DC Lorazepam (Ativan) 1 mg Q6H PRN PO anxiety Last administered on 06/17/16at 08:17 ; Start 05/27/16 at 11:00; Stop 06/18/16 at 10:03; Status DC Miscellaneous (Pill Splitter) 1 ea UNSCH PRN OTHER SEE LABEL COMMENTS; Start at 11:15 Potassium Chloride (KCl) 10 meq DAILY PO Last administered on 06/30/16at 09:47; Start 06/06/16 at 10:00 Al Hydrox/Mg Hydrox/Simethicone (Mag-Al Plus Susp Liq) 30 ml Q6H PRN PO DYSPEPSIA OR HEARTBURN Last administered on 06/25/16at 16:23; Start 06/09/16 at 13 :30 Calcium Carbonate (Tums Chew) 500 mg Q6H PRN CHEW DYSPEPSIA OR HEARTBURN Last administered on 06/19/16at 15:09; Start 06/09/16 at 13:30 Ranitidine HCl (Zantac) 150 mg BID PO Last administered on 06/30/16at 21:58; Start 06/09/16 at 13:30 Ondansetron HCl (Zofran Odt) 4 mg Q6H PRN PO NAUSEA OR VOMITING; Start at 10:00 Metoprolol Tartrate (Lopressor) 25 mg Q12HR PO Last administered on 06/23/16at 22:13; Start 06/22/16 at 21:00; Stop 06/24/16 at 08:21; Status DC Lisinopril (Prinivil) 10 mg DAILY PO Last administered on 06/30/16at 09:47; Start 06/23/16 at 09:00 Metoprolol Tartrate (Lopressor) 12.5 mg Q12HR PO Last administered on 06/30/16at 21:58; Start 06/24/16 at 09:00 Past, Family & Social History Past Medical History PFSH Reviewed: Yes Cardiovascular: REPORTS HX OF: Other CV history Neurologic: REPORTS HX OF: Stroke Alcohol Use Alcohol intake: 2+ drinks per day Counseling given: None Review of Systems Constitutional: COMPLAINS OF: Pain Musculoskeletal: COMPLAINS OF: Deformaties Neurological: COMPLAINS OF: Changes in sensation Exam-Podiatry Constitutional General appearance: comfortable Nutritional status: underweight Orientation: alert and oriented x3 Dermatological Exam Skin Temp - Right: Within Normal Limits Skin Texture - Right: Within Normal Limits Skin Elasticity - Right: Within Normal Limits Skin Tugor - Right: Within Normal Limits Hair Growth - Right: Within Normal Limits Pigmentation - Right: Within Normal Limits Skin Temp - Left: Within Normal Limits Skin Texture - Left: Within Normal Limits Skin Elasticity - Left: Within Normal Limits Skin Tugor - Left: Within Normal Limits Hair Growth - Left: Within Normal Limits Pigmentation - Left: Within Normal Limits Discoloration: Toe #5 (R), Toe #4 (R), Toe #3 (R), Toe #2 (R), Toe #1 (R), Toe #1 (L), Toe #2 (L), Toe #3 (L), Toe #4 (L), Toe #5 (L) Thickening: Toe #5 (R), Toe #4 (R), Toe #3 (R), Toe #2 (R), Toe #1 (R), Toe #1 (L), Toe #2 (L), Toe #3 (L), Toe #4 (L), Toe #5 (L) Yellow, Brittle, &/or Karl: Toe #5 (R), Toe #4 (R), Toe #3 (R), Toe #2 (R) , Toe #1 (R), Toe #1 (L), Toe #2 (L), Toe #3 (L), Toe #4 (L), Toe #5 (L) Vascular/Lymphatic Exam R Dorsails Pedis: Palpable L Dorsails Pedis: Palpable R Posterior Tibial: Palpable L Posterior Tibial: Palpable Neurologic Exam Present on right: Tingling Present on left: Tingling Muscle Strength Dorsiflexion (Right): Atrophy Foot Range of Motion Dorsiflexion (Right): Normal Plantarflexion (Right): Normal Inversion (Right): Normal Eversion (Right): Normal Digital (Right): Normal Dorsiflexion (Left): Normal Plantarflexion (Left): Normal Inversion (Left): Normal Eversion (Left): Normal Digital (Left): Normal Lab and Radiology Results Laboratory Microbiology Date/Time Procedure Status Source Growth 06/28/16 14:00 Urine Culture - Final Complete Urine Clean Catch Gardnerella Vaginalis Radiology Last Impressions Chest X-Ray 05/12/16 0600 Signed Impressions: Service Date/Time: Thursday, May 12, 2016 05:16 - CONCLUSION: No acute disease. Nadir Hebert MD Liver Ultrasound 05/11/16 0000 Signed Impressions: Service Date/Time: Wednesday, May 11, 2016 08:30 - CONCLUSION: 1. Liver is slightly echogenic which can be seen with fatty infiltration/hepatocellular dysfunction. 2. No evidence for cholelithiasis. Geremias Smith MD Head Magnetic Resonance Angiography 05/11/16 0000 Signed Impressions: Service Date/Time: Wednesday, May 11, 2016 16:21 - CONCLUSION: No acute [place] vascular abnormalities. Jeremy Toledo MD Brain MRI 05/11/16 0000 Signed Impressions: Service Date/Time: Wednesday, May 11, 2016 16:21 - CONCLUSION: 1. Focal acute intraparenchymal hemorrhage in the left thalamus measuring 2.8 cm most likely representing a focal hemorrhagic infarction. 2. Bilateral cortical atrophy and mild chronic white matter changes. 3. No enhancing mass occupying lesions are demonstrated. Estrada Vigil MD Abdomen X-Ray 05/11/16 0000 Signed Impressions: Service Date/Time: Wednesday, May 11, 2016 16:03 - CONCLUSION: No evidence of obstruction. No MRI incompatible foreign body is identified. Estrada Vigil MD Head CT 05/10/16 1431 Signed Impressions: Service Date/Time: Tuesday, May 10, 2016 15:07 - CONCLUSION: 1. 2.3 cm left thalamic hypertensive type hemorrhage with approximately 4 mm of [id number] subfalcine shift. 2. Mild periventricular small vessel ischemic demyelination. 3. Results were called to Dr. Barboza at the time of this dictation. Nicholas Dove MD Assessment/Plan Problem List: (1) Basal ganglia hemorrhage Status: Chronic (2) Hemiparesis affecting right side as late effect of cerebrovascular accident (CVA) Status: Chronic (3) Onychomycosis Status: Acute Additional Plans & Procedures PLAN:. Debridement of bilateral toenails was performed. Patient without complaints. Please reconsult as necessary Geremias Gonsalez DPM Jul 01, 2016 08:15
[2016-07-01] MEDS: GABAPENTIN 100 MG CAP PO SCH ×3 (09:24→15:33)
[2016-07-01] MEDS: RANITIDINE HCL 150 MG TAB PO SCH ×2 (09:24→22:23)
[2016-07-01] MEDS: METOPROLOL TARTRATE 25 MG TAB PO SCH ×2 (09:24→22:24)
[2016-07-01] MEDS: LISINOPRIL 10 MG TAB PO SCH (09:24)
[2016-07-01] MEDS: POTASSIUM CHLORIDE 10 MEQ CONTROLLED RELEASE TAB PO SCH (09:24)
[2016-07-01] MEDS: metroNIDAZOLE 500 MG TAB PO SCH ×2 (09:30→22:23)
[2016-07-01 20:00] VITALS: BP 104/72; PULSE 74; RESP 18; TEMP 98.2; O2SAT 97
[2016-07-01] MEDS: QUEtiapine FUMARATE 25 MG TAB PO SCH (22:24)
--- NOTE | 2016-07-02 07:17 | HHI.PR ---
Subjective Remarks Patient seen and examined today. Patient denies any new complaints. No change in clinical status. Objective Vitals Vital Signs Date Time Temp Pulse Resp B/P Pulse Ox O2 Delivery O2 Flow Rate FiO2 07/01/16 20:00 98.2 74 18 104/72 97 07/01/16 08:00 97.8 70 20 120/76 96 I/O 07/01/16 07/01/16 07/01/16 07/02/16 07/02/16 07/02/16 06:59 14:59 22:59 06:59 14:59 22:59 Intake Total 675 ml 240 ml Output Total 225 ml 300 ml 1225 ml Balance -225 ml 675 ml -300 ml -985 ml Intake Oral 675 ml 240 ml Output Urine Total 225 ml 300 ml 1225 ml # Voids 1 3 6 # Bowel Movements 0 1 0 Objective Remarks GENERAL: Well-developed, well-nourished, in no acute distress. alert and orientated HEENT: Head is normocephalic without any lesions or masses noted right facial droop. Eyes: Pupils equal round reactive to light. Extraocular muscles are intact. Conjunctivae were clear. NECK: Supple without any masses. Trachea midline no deviation. CARDIAC: Regular rhythm, regular rate. S1/S2 are heard. No murmurs gallops or rubs. LUNGS: Clear to auscultation bilaterally. No wheeze, rhonchi or rales. No use of accessory muscles on inspiration or expiration. ABDOMEN: Soft, nontender. Nondistended. Bowel sounds heard in all 4 quadrants. No organomegaly or masses. Negative rebound, negative guarding EXTREMITIES: No edema, pulses are equal bilaterally. No cyanosis or clubbing NEUROLOGY: Mood and affect appear appropriate. Dense right hemiparesis Procedures None Urinary Catheter: No Vascular Central Line Catheter: No A/P Assessment and Plan Left basal ganglia bleed with 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 Venegas has evaluated the patient. The bleed has been stable on repeat head CT. No surgery needed. Speech therapy has been following the patient and last documented diet recommendation was 05/24/16 to indicate mechanical soft diet with thin liquids. As per continue speech therapy it would appear as if the patient has been refusing therapy for at least 90% of the time. We'll need to continue speech therapy until they indicate the patient no longer requires therapy Occupational therapy indicates OT at rehabilitation. Will need intensive occupational therapy evaluation until patient cleared by OT for discharge or patient's functional capacity can no longer improve Physical therapy indicating PT at rehabilitation. We'll need to continue intensive physical therapy, continue right AFO, PT indicates that able to use AFO because patient does not have any shoes. 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 Status post thiamine Tobacco abuse Counseled on cessation Chronic hepatitis C, chronic Patient with chronic transaminitis liver ultrasound showed fatty infiltration Anxiety. Controlled Seroquel low-dose initiated on 05/27. Mood seems OK. DVT prophylaxis Sequential compression devices. Discharge Planning Discharge disposition, apparently having discharge difficulties. They are working on obtaining so security benefits. Also indicating in case management notes that the patient is part of the [facility] [place], they are trying to contact them at this time. Jaycob Rebolledo Jul 02, 2016 07:17
[2016-07-02 08:00] VITALS: BP 109/67; PULSE 74; RESP 18; TEMP 97.6; O2SAT 97
[2016-07-02] MEDS: GABAPENTIN 100 MG CAP PO SCH ×3 (13:00→18:17)
[2016-07-02] MEDS: POTASSIUM CHLORIDE 10 MEQ CONTROLLED RELEASE TAB PO SCH (13:02)
[2016-07-02] MEDS: LISINOPRIL 10 MG TAB PO SCH (13:03)
[2016-07-02] MEDS: RANITIDINE HCL 150 MG TAB PO SCH ×2 (13:03→20:47)
[2016-07-02] MEDS: metroNIDAZOLE 500 MG TAB PO SCH ×2 (13:04→20:47)
[2016-07-02] MEDS: METOPROLOL TARTRATE 25 MG TAB PO SCH ×2 (13:04→20:47)
[2016-07-02 20:00] VITALS: BP 96/67; PULSE 71; RESP 22; TEMP 98.1; O2SAT 98
[2016-07-02] MEDS: QUEtiapine FUMARATE 25 MG TAB PO SCH (20:47)
[2016-07-02] MEDS: ALUMINUM/MAGNESIUM/SIMETH 30 ML CUP PO PRN (20:59)
[2016-07-02] MEDS: ACETAMINOPHEN 325 MG TAB PO PRN (20:59)
[2016-07-03 08:10] VITALS: BP 106/74; PULSE 72; RESP 18; TEMP 97.5; O2SAT 95
[2016-07-03] MEDS: METOPROLOL TARTRATE 25 MG TAB PO SCH ×2 (08:33→21:00)
[2016-07-03] MEDS: LISINOPRIL 10 MG TAB PO SCH (08:35)
[2016-07-03] MEDS: GABAPENTIN 100 MG CAP PO SCH ×3 (08:35→17:41)
[2016-07-03] MEDS: RANITIDINE HCL 150 MG TAB PO SCH ×2 (08:35→21:27)
[2016-07-03] MEDS: POTASSIUM CHLORIDE 10 MEQ CONTROLLED RELEASE TAB PO SCH (08:35)
[2016-07-03] MEDS: metroNIDAZOLE 500 MG TAB PO SCH ×2 (08:35→21:27)
--- NOTE | 2016-07-03 10:04 | HHI.PR ---
Subjective Remarks Patient states she is "pretty good". She states she had some stomach pain last night which has now resolved. She denies any fevers or chills. Objective Vitals Vital Signs Date Time Temp Pulse Resp B/P Pulse Ox O2 Delivery O2 Flow Rate FiO2 07/03/16 08:10 97.5 72 18 106/74 95 07/02/16 20:00 98.1 71 22 96/67 98 I/O 07/02/16 07/02/16 07/02/16 07/03/16 07/03/16 07/03/16 07:00 15:00 23:00 07:00 15:00 23:00 Intake Total 240 ml 525 ml Output Total 1225 ml 425 ml Balance -985 ml 100 ml Intake Oral 240 ml 525 ml Output Urine Total 1225 ml 425 ml # Voids 6 6 # Bowel Movements 0 0 1 Imaging Last Impressions Chest X-Ray 05/12/16 0600 Signed Impressions: Service Date/Time: Thursday, May 12, 2016 05:16 - CONCLUSION: No acute disease. Nadir Hebert MD Liver Ultrasound 05/11/16 0000 Signed Impressions: Service Date/Time: Wednesday, May 11, 2016 08:30 - CONCLUSION: 1. Liver is slightly echogenic which can be seen with fatty infiltration/hepatocellular dysfunction. 2. No evidence for cholelithiasis. Geremias Smith MD Head Magnetic Resonance Angiography 05/11/16 0000 Signed Impressions: Service Date/Time: Wednesday, May 11, 2016 16:21 - CONCLUSION: No acute [place] vascular abnormalities. Jeremy Toledo MD Brain MRI 05/11/16 0000 Signed Impressions: Service Date/Time: Wednesday, May 11, 2016 16:21 - CONCLUSION: 1. Focal acute intraparenchymal hemorrhage in the left thalamus measuring 2.8 cm most likely representing a focal hemorrhagic infarction. 2. Bilateral cortical atrophy and mild chronic white matter changes. 3. No enhancing mass occupying lesions are demonstrated. Estrada Vigil MD Abdomen X-Ray 05/11/16 0000 Signed Impressions: Service Date/Time: Wednesday, May 11, 2016 16:03 - CONCLUSION: No evidence of obstruction. No MRI incompatible foreign body is identified. Estrada Vigil MD Head CT 05/10/16 1431 Signed Impressions: Service Date/Time: Tuesday, May 10, 2016 15:07 - CONCLUSION: 1. 2.3 cm left thalamic hypertensive type hemorrhage with approximately 4 mm of wurp-kv-paizp subfalcine shift. 2. Mild periventricular small vessel ischemic demyelination. 3. Results were called to Dr. Barboza at the time of this dictation. Nicholas Dove MD Objective Remarks Vitals stable this morning. GENERAL: Thin, patient no apparent distress. SKIN: Warm and dry. HEAD: Atraumatic. Normocephalic. CARDIOVASCULAR: Regular rate and rhythm. RESPIRATORY: Limited anterior exam. No accessory muscle use. Clear to auscultation. Breath sounds equal bilaterally. GASTROINTESTINAL: Normoactive bowel sounds. Abdomen soft, non-tender, nondistended. MUSCULOSKELETAL: No lower extremity edema bilaterally. NEUROLOGICAL: Awake and alert. Normal speech. PSYCHIATRIC: Appropriate mood and affect; insight and judgment normal. Procedures None Urinary Catheter: No Vascular Central Line Catheter: No A/P Problem List: (1) Basal ganglia hemorrhage Status: Chronic (2) Hemiparesis affecting right side as late effect of cerebrovascular accident (CVA) Status: Chronic (3) Hypertensive emergency Status: Resolved (4) Metabolic acidosis Status: Resolved (5) UTI (urinary tract infection) Status: Resolved Assessment and Plan Left basal ganglia bleed with 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 Venegas has evaluated the patient. The bleed has been stable on repeat head CT. No surgery needed. Speech therapy has been following the patient and last documented diet recommendation was 05/24/16 to indicate mechanical soft diet with thin liquids. As per continue speech therapy it would appear as if the patient has been refusing therapy for at least 90% of the time. Speech therapy has signed off as of 06/11 as patient refused to have therapy although she needs it. 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 Will need intensive occupational therapy evaluation until patient cleared by OT for discharge or patient's functional capacity can no longer improve Physical therapy indicating PT at rehabilitation. We'll need to continue intensive physical therapy, continue right AFO, PT indicates that able to use AFO because patient does not have any shoes. 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 Status post thiamine Tobacco abuse Counseled on cessation Chronic hepatitis C, chronic Patient with chronic transaminitis liver ultrasound showed fatty infiltration Anxiety. Controlled Seroquel low-dose initiated on 05/27. Mood seems OK. DVT prophylaxis Sequential compression devices. Discharge Planning Patient has no funding for rehabilitation. manager marketing sales is following up with [facility] regarding status of applications. Occupational therapy recommends shower bench, 3-1 bedside commode for discharge. PT recommends right AFO. Elisabeth Church Jul 03, 2016 10:04
[2016-07-03 19:44] VITALS: BP 105/70; PULSE 73; RESP 22; TEMP 97.2; O2SAT 99
[2016-07-03] MEDS: QUEtiapine FUMARATE 25 MG TAB PO SCH (21:27)
[2016-07-04 08:05] VITALS: BP 110/80; PULSE 83; RESP 18; TEMP 97.8; O2SAT 97
[2016-07-04] MEDS: POTASSIUM CHLORIDE 10 MEQ CONTROLLED RELEASE TAB PO SCH (08:13)
[2016-07-04] MEDS: LISINOPRIL 10 MG TAB PO SCH (08:13)
[2016-07-04] MEDS: METOPROLOL TARTRATE 25 MG TAB PO SCH ×2 (08:13→20:32)
[2016-07-04] MEDS: GABAPENTIN 100 MG CAP PO SCH ×2 (08:13→18:03)
[2016-07-04] MEDS: RANITIDINE HCL 150 MG TAB PO SCH ×2 (08:13→20:52)
[2016-07-04] MEDS: metroNIDAZOLE 500 MG TAB PO SCH ×2 (08:13→20:52)
--- NOTE | 2016-07-04 12:17 | HHI.PR ---
Subjective Remarks Patient admits to some stomach pain at night but admits it may be indigestion related. Denies any fevers or chills, shortness of breath, dysuria, or diarrhea. Objective Vitals Vital Signs Date Time Temp Pulse Resp B/P Pulse Ox O2 Delivery O2 Flow Rate FiO2 07/04/16 08:05 97.8 83 18 110/80 97 07/03/16 19:44 97.2 73 22 105/70 99 I/O 07/03/16 07/03/16 07/03/16 07/04/16 07/04/16 07/04/16 07:00 15:00 23:00 07:00 15:00 23:00 Intake Total 720 ml 120 ml 240 ml Balance 720 ml 120 ml 240 ml Intake Oral 720 ml 120 ml 240 ml # Voids 6 2 2 5 # Bowel Movements 1 1 Imaging Last Impressions Chest X-Ray 05/12/16 0600 Signed Impressions: Service Date/Time: Thursday, May 12, 2016 05:16 - CONCLUSION: No acute disease. Nadir Hebert MD Liver Ultrasound 05/11/16 0000 Signed Impressions: Service Date/Time: Wednesday, May 11, 2016 08:30 - CONCLUSION: 1. Liver is slightly echogenic which can be seen with fatty infiltration/hepatocellular dysfunction. 2. No evidence for cholelithiasis. Geremias Smith MD Head Magnetic Resonance Angiography 05/11/16 0000 Signed Impressions: Service Date/Time: Wednesday, May 11, 2016 16:21 - CONCLUSION: No acute [place] vascular abnormalities. Jeremy Toledo MD Brain MRI 05/11/16 0000 Signed Impressions: Service Date/Time: Wednesday, May 11, 2016 16:21 - CONCLUSION: 1. Focal acute intraparenchymal hemorrhage in the left thalamus measuring 2.8 cm most likely representing a focal hemorrhagic infarction. 2. Bilateral cortical atrophy and mild chronic white matter changes. 3. No enhancing mass occupying lesions are demonstrated. Estrada Vigil MD Abdomen X-Ray 05/11/16 0000 Signed Impressions: Service Date/Time: Wednesday, May 11, 2016 16:03 - CONCLUSION: No evidence of obstruction. No MRI incompatible foreign body is identified. Estrada Vigil MD Head CT 05/10/16 1431 Signed Impressions: Service Date/Time: Tuesday, May 10, 2016 15:07 - CONCLUSION: 1. 2.3 cm left thalamic hypertensive type hemorrhage with approximately 4 mm of dyia-in-gegps subfalcine shift. 2. Mild periventricular small vessel ischemic demyelination. 3. Results were called to Dr. Barboza at the time of this dictation. Nicholas Dove MD Objective Remarks GENERAL: Thin, patient no apparent distress. SKIN: Warm and dry. CARDIOVASCULAR: Regular rate and rhythm. No murmurs. RESPIRATORY: Limited anterior exam. No accessory muscle use. Clear to auscultation. Breath sounds equal bilaterally. GASTROINTESTINAL: Abdomen soft, non-tender, nondistended. MUSCULOSKELETAL: No lower extremity edema bilaterally. NEUROLOGICAL: Awake and alert. Unable to move R arm. Normal speech. PSYCHIATRIC: Appropriate mood and affect; insight and judgment normal. Procedures None A/P Problem List: (1) Basal ganglia hemorrhage Status: Chronic (2) Hemiparesis affecting right side as late effect of cerebrovascular accident (CVA) Status: Chronic (3) Hypertensive emergency Status: Resolved (4) Metabolic acidosis Status: Resolved (5) UTI (urinary tract infection) Status: Resolved Assessment and Plan Left basal ganglia bleed with 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 Venegas has evaluated the patient. The bleed has been stable on repeat head CT. No surgery needed. Speech therapy has been following the patient and last documented diet recommendation was 05/24/16 to indicate mechanical soft diet with thin liquids. As per continue speech therapy it would appear as if the patient has been refusing therapy for at least 90% of the time. Speech therapy has signed off as of 06/11 as patient refused to have therapy although she needs it. 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 Will need intensive occupational therapy evaluation until patient cleared by OT for discharge or patient's functional capacity can no longer improve Physical therapy indicating PT at rehabilitation. We'll need to continue intensive physical therapy, continue right AFO, PT indicates that able to use AFO because patient does not have any shoes. Right arm pain, controlled Continue Neurontin for right arm neuropathic pain Dysuria Urinalysis indicates small amount leukocyte esterase, WBCs 1519, squamous epithelial cells 0-5, possible contamination, Urine culture shows contamination with Gardnerella vaginalis Flagyl 500 mg twice daily for 7 days Hypertension, controlled Norvasc 10 mg daily, lisinopril 10 mg daily Lopressor 12.5 mg twice daily Alcohol and cocaine abuse dependence patient previously counseled. Status post thiamine Tobacco abuse Counseled on cessation Chronic hepatitis C, chronic Patient with chronic transaminitis liver ultrasound showed fatty infiltration Anxiety. Controlled Seroquel low-dose initiated on 05/27. Mood seems OK. Indigestion: TUMS, Maalox prn DVT prophylaxis Sequential compression devices. Discharge Planning Patient has no funding for rehabilitation. architecture manager is following up with [facility] regarding status of applications. Occupational therapy recommends shower bench, 3-1 bedside commode for discharge. PT recommends right AFO. Elisabeth Church Jul 04, 2016 12:17
[2016-07-04] MEDS ORDERED: MISC-163 (16:43)
[2016-07-04] MEDS ORDERED: MISC-289 (16:43)
[2016-07-04 20:00] VITALS: BP 107/75; PULSE 75; RESP 20; TEMP 98.6; O2SAT 96
[2016-07-04] MEDS: QUEtiapine FUMARATE 25 MG TAB PO SCH (20:52)
[2016-07-05 07:58] VITALS: BP 120/82; PULSE 87; RESP 18; TEMP 96.7; O2SAT 98
[2016-07-05] MEDS: metroNIDAZOLE 500 MG TAB PO SCH ×2 (08:38→22:11)
[2016-07-05] MEDS: METOPROLOL TARTRATE 25 MG TAB PO SCH ×2 (08:38→22:11)
[2016-07-05] MEDS: LISINOPRIL 10 MG TAB PO SCH (08:38)
[2016-07-05] MEDS: POTASSIUM CHLORIDE 10 MEQ CONTROLLED RELEASE TAB PO SCH (08:38)
[2016-07-05] MEDS: GABAPENTIN 100 MG CAP PO SCH ×2 (08:38→17:41)
[2016-07-05] MEDS: RANITIDINE HCL 150 MG TAB PO SCH ×2 (08:38→22:12)
--- NOTE | 2016-07-05 10:36 | HHI.PR ---
Subjective Remarks Patient complains of intermittent left upper quadrant abdominal pain as she mentioned yesterday. Denies current pain. Admits to eating okay. Denies any nausea, vomiting, or associated diarrhea. Last bowel movement was this morning , and BMs have been regular. Admits to heartburn. Denies any shortness of breath. Objective Vitals Vital Signs Date Time Temp Pulse Resp B/P Pulse Ox O2 Delivery O2 Flow Rate FiO2 07/05/16 07:58 96.7 87 18 120/82 98 07/04/16 20:00 98.6 75 20 107/75 96 I/O 07/04/16 07/04/16 07/04/16 07/05/16 07/05/16 07/05/16 07:00 15:00 23:00 07:00 15:00 23:00 Intake Total 240 ml 480 ml 600 ml 240 ml Balance 240 ml 480 ml 600 ml 240 ml Intake Oral 240 ml 480 ml 600 ml 240 ml # Voids 5 4 2 # Bowel Movements 1 1 1 0 Imaging Last Impressions Chest X-Ray 05/12/16 0600 Signed Impressions: Service Date/Time: Thursday, May 12, 2016 05:16 - CONCLUSION: No acute disease. Nadir Hebert MD Liver Ultrasound 05/11/16 0000 Signed Impressions: Service Date/Time: Wednesday, May 11, 2016 08:30 - CONCLUSION: 1. Liver is slightly echogenic which can be seen with fatty infiltration/hepatocellular dysfunction. 2. No evidence for cholelithiasis. Geremias Smith MD Head Magnetic Resonance Angiography 05/11/16 0000 Signed Impressions: Service Date/Time: Wednesday, May 11, 2016 16:21 - CONCLUSION: No acute [place] vascular abnormalities. Jeremy Toledo MD Brain MRI 05/11/16 0000 Signed Impressions: Service Date/Time: Wednesday, May 11, 2016 16:21 - CONCLUSION: 1. Focal acute intraparenchymal hemorrhage in the left thalamus measuring 2.8 cm most likely representing a focal hemorrhagic infarction. 2. Bilateral cortical atrophy and mild chronic white matter changes. 3. No enhancing mass occupying lesions are demonstrated. Estrada Vigil MD Abdomen X-Ray 05/11/16 0000 Signed Impressions: Service Date/Time: Wednesday, May 11, 2016 16:03 - CONCLUSION: No evidence of obstruction. No MRI incompatible foreign body is identified. Estrada Vigil MD Head CT 05/10/16 1431 Signed Impressions: Service Date/Time: Tuesday, May 10, 2016 15:07 - CONCLUSION: 1. 2.3 cm left thalamic hypertensive type hemorrhage with approximately 4 mm of lbxq-pj-wstyz subfalcine shift. 2. Mild periventricular small vessel ischemic demyelination. 3. Results were called to Dr. Barboza at the time of this dictation. Nicholas Dove MD Objective Remarks GENERAL: Thin, patient no apparent distress. SKIN: Warm and dry. EYES: Pupils equal. CARDIOVASCULAR: Regular rate and rhythm. RESPIRATORY: Limited anterior exam. No accessory muscle use. Clear to auscultation. Breath sounds equal bilaterally. GASTROINTESTINAL: Normoactive bowel sounds in all 4 quadrants. Abdomen soft, non-tender, nondistended. NEUROLOGICAL: Awake and alert. Weakness in right arm and right leg. Normal speech. PSYCHIATRIC: Insight and judgment normal. Procedures None Urinary Catheter: No Vascular Central Line Catheter: No A/P Problem List: (1) Basal ganglia hemorrhage Status: Chronic (2) Hemiparesis affecting right side as late effect of cerebrovascular accident (CVA) Status: Chronic (3) Hypertensive emergency Status: Resolved (4) Metabolic acidosis Status: Resolved (5) UTI (urinary tract infection) Status: Resolved Assessment and Plan Left basal ganglia bleed with 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 Venegas has evaluated the patient. The bleed has been stable on repeat head CT. No surgery needed. Speech therapy has been following the patient and last documented diet recommendation was 05/24/16 to indicate mechanical soft diet with thin liquids. As per continue speech therapy it would appear as if the patient has been refusing therapy for at least 90% of the time. Speech therapy has signed off as of 06/11 as patient refused to have therapy although she needs it. 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 Will need intensive occupational therapy evaluation until patient cleared by OT for discharge or patient's functional capacity can no longer improve Physical therapy indicating PT at rehabilitation. We'll need to continue intensive physical therapy, continue right AFO, PT indicates that able to use AFO because patient does not have any shoes. Right arm pain, controlled Continue Neurontin for right arm neuropathic pain Dysuria Urinalysis indicates small amount leukocyte esterase, WBCs 1519, squamous epithelial cells 0-5, possible contamination, Urine culture shows contamination with Gardnerella vaginalis Flagyl 500 mg twice daily for 7 days Hypertension, controlled Norvasc 10 mg daily, lisinopril 10 mg daily Lopressor 12.5 mg twice daily Alcohol and cocaine abuse dependence patient previously counseled. Status post thiamine Tobacco abuse Counseled on cessation Chronic hepatitis C, chronic Patient with chronic transaminitis liver ultrasound showed fatty infiltration Anxiety. Controlled Seroquel low-dose initiated on 05/27. Mood seems OK. Abdominal pain/heartburn: Patient complains of intermittent left upper quadrant pain, but abdominal exam is benign. Afebrile. She is having normal bowel movements. She does admit to heartburn. She is advised to ask for prn TUMS and Maalox. DVT prophylaxis Sequential compression devices. Discharge Planning Patient has no funding for rehabilitation. manager french is following up with [facility] regarding status of applications. Occupational therapy recommends shower bench, 3-1 bedside commode for discharge. PT recommends right AFO. Elisabeth Church Jul 05, 2016 10:36
[2016-07-05] MEDS: CALCIUM CARBONATE 500 MG CHEWABLE TAB CHEW PRN (17:43)
[2016-07-05 20:00] VITALS: BP 126/79; PULSE 77; RESP 20; TEMP 97.8; O2SAT 99
[2016-07-05] MEDS: QUEtiapine FUMARATE 25 MG TAB PO SCH (22:12)
--- NOTE | 2016-07-06 07:54 | HHI.PR ---
Subjective Remarks Patient seen and examined today. Patient denies any new complaints. No change in clinical status. Respiratory: DENIES: Cough, Shortness of breath, Wheezing Cardiovascular: DENIES: Chest pain, Palpitations Gastrointestinal: DENIES: Abdominal pain, Change in stools Neurological: DENIES: Headache, Numbness, Weakness Objective Vitals Vital Signs Date Time Temp Pulse Resp B/P Pulse Ox O2 Delivery O2 Flow Rate FiO2 07/05/16 20:00 97.8 77 20 126/79 99 07/05/16 07:58 96.7 87 18 120/82 98 I/O 07/05/16 07/05/16 07/05/16 07/06/16 07/06/16 07/06/16 07:00 15:00 23:00 07:00 15:00 23:00 Intake Total 240 ml 450 ml 120 ml 480 ml Balance 240 ml 450 ml 120 ml 480 ml Intake Oral 240 ml 450 ml 120 ml 480 ml # Voids 2 1 4 4 # Bowel Movements 0 1 0 0 Objective Remarks GENERAL: Well-developed, well-nourished, in no acute distress. alert and orientated HEENT: Head is normocephalic without any lesions or masses noted right facial droop. Eyes: Pupils equal round reactive to light. Extraocular muscles are intact. Conjunctivae were clear. NECK: Supple without any masses. Trachea midline no deviation. CARDIAC: Regular rhythm, regular rate. S1/S2 are heard. No murmurs gallops or rubs. LUNGS: Clear to auscultation bilaterally. No wheeze, rhonchi or rales. No use of accessory muscles on inspiration or expiration. ABDOMEN: Soft, nontender. Nondistended. Bowel sounds heard in all 4 quadrants. No organomegaly or masses. Negative rebound, negative guarding EXTREMITIES: No edema, pulses are equal bilaterally. No cyanosis or clubbing NEUROLOGY: Mood and affect appear appropriate. Dense right hemiparesis Procedures None Urinary Catheter: No Vascular Central Line Catheter: No A/P Assessment and Plan Left basal ganglia bleed with 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 Venegas has evaluated the patient. The bleed has been stable on repeat head CT. No surgery needed. Speech therapy has been following the patient and last documented diet recommendation was 05/24/16 to indicate mechanical soft diet with thin liquids. As per continue speech therapy it would appear as if the patient has been refusing therapy for at least 90% of the time. We'll need to continue speech therapy until they indicate the patient no longer requires therapy Occupational therapy indicates OT at rehabilitation. Will need intensive occupational therapy evaluation until patient cleared by OT for discharge or patient's functional capacity can no longer improve Physical therapy indicating PT at rehabilitation. We'll need to continue intensive physical therapy, continue right AFO, PT indicates that able to use AFO because patient does not have any shoes. Right arm pain, controlled Continue Neurontin for right arm neuropathic pain Dysuria Urinalysis indicates small amount leukocyte esterase, WBCs 1519, squamous epithelial cells 0-5, possible contamination, Urine culture shows contamination with Gardnerella vaginalis Flagyl 500 mg twice daily for 7 days Hypertension, blood pressure stable Norvasc 10 mg daily, lisinopril 10 mg daily Lopressor 12.5 mg twice daily Alcohol and cocaine abuse dependence patient previously counseled. Status post thiamine Tobacco abuse Counseled on cessation Chronic hepatitis C, chronic Patient with chronic transaminitis liver ultrasound showed fatty infiltration Anxiety. Controlled Seroquel low-dose initiated on 05/27. Mood seems OK. DVT prophylaxis Sequential compression devices. Discharge Planning Patient has no funding for rehabilitation. manager night is following up with [facility] regarding status of applications. Occupational therapy recommends shower bench, 3-1 bedside commode for discharge. PT recommends right AFO. Jaycob Rebolledo Jul 06, 2016 07:54
[2016-07-06 08:37] VITALS: BP 114/71; PULSE 72; RESP 18; TEMP 96.3; O2SAT 96
[2016-07-06] MEDS: metroNIDAZOLE 500 MG TAB PO SCH ×2 (08:49→20:24)
[2016-07-06] MEDS: POTASSIUM CHLORIDE 10 MEQ CONTROLLED RELEASE TAB PO SCH (08:49)
[2016-07-06] MEDS: RANITIDINE HCL 150 MG TAB PO SCH ×2 (08:49→20:24)
[2016-07-06] MEDS: GABAPENTIN 100 MG CAP PO SCH ×3 (08:49→18:41)
[2016-07-06] MEDS: LISINOPRIL 10 MG TAB PO SCH (08:49)
[2016-07-06] MEDS: METOPROLOL TARTRATE 25 MG TAB PO SCH ×2 (08:49→20:24)
[2016-07-06 20:00] VITALS: BP 103/66; PULSE 77; RESP 20; TEMP 98.1; O2SAT 95
[2016-07-06] MEDS: QUEtiapine FUMARATE 25 MG TAB PO SCH (20:24)
--- NOTE | 2016-07-07 08:31 | HHI.PR ---
Subjective Remarks Patient seen and examined today. Patient denies any new complaints. No change in clinical status. Respiratory: DENIES: Cough, Shortness of breath, Wheezing Cardiovascular: DENIES: Chest pain, Palpitations Gastrointestinal: DENIES: Abdominal pain, Change in stools Neurological: COMPLAINS OF: Numbness, Weakness, DENIES: Headache Objective Vitals Vital Signs Date Time Temp Pulse Resp B/P Pulse Ox O2 Delivery O2 Flow Rate FiO2 07/06/16 20:00 98.1 77 20 103/66 95 07/06/16 08:37 96.3 72 18 114/71 96 I/O 07/06/16 07/06/16 07/06/16 07/07/16 07/07/16 07/07/16 07:00 15:00 23:00 07:00 15:00 23:00 Intake Total 480 ml 240 ml Output Total 625 ml Balance 480 ml -385 ml Intake Oral 480 ml 240 ml Output Urine Total 625 ml # Voids 4 2 # Bowel Movements 0 1 Objective Remarks GENERAL: Well-developed, well-nourished, in no acute distress. alert and orientated HEENT: Head is normocephalic without any lesions or masses noted right facial droop. Eyes: Pupils equal round reactive to light. Extraocular muscles are intact. Conjunctivae were clear. NECK: Supple without any masses. Trachea midline no deviation. CARDIAC: Regular rhythm, regular rate. S1/S2 are heard. No murmurs gallops or rubs. LUNGS: Clear to auscultation bilaterally. No wheeze, rhonchi or rales. No use of accessory muscles on inspiration or expiration. ABDOMEN: Soft, nontender. Nondistended. Bowel sounds heard in all 4 quadrants. No organomegaly or masses. Negative rebound, negative guarding EXTREMITIES: No edema, pulses are equal bilaterally. No cyanosis or clubbing NEUROLOGY: Mood and affect appear appropriate. Dense right hemiparesis Procedures None Urinary Catheter: No Vascular Central Line Catheter: No A/P Assessment and Plan Left basal ganglia bleed with 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 Venegas has evaluated the patient. The bleed has been stable on repeat head CT. No surgery needed. Speech therapy has been following the patient and last documented diet recommendation was 05/24/16 to indicate mechanical soft diet with thin liquids. As per continue speech therapy it would appear as if the patient has been refusing therapy for at least 90% of the time. We'll need to continue speech therapy until they indicate the patient no longer requires therapy Occupational therapy indicates OT at rehabilitation. Will need intensive occupational therapy evaluation until patient cleared by OT for discharge or patient's functional capacity can no longer improve Physical therapy indicating PT at rehabilitation. We'll need to continue intensive physical therapy, continue right AFO, Right arm pain, controlled Continue Neurontin for right arm neuropathic pain Dysuria Urinalysis indicates small amount leukocyte esterase, WBCs 1519, squamous epithelial cells 0-5, possible contamination, Urine culture shows contamination with Gardnerella vaginalis Flagyl 500 mg twice daily for 7 days Hypertension, blood pressure stable Norvasc 10 mg daily, lisinopril 10 mg daily Lopressor 12.5 mg twice daily Alcohol and cocaine abuse dependence patient previously counseled. Status post thiamine Tobacco abuse Counseled on cessation Chronic hepatitis C, chronic Patient with chronic transaminitis liver ultrasound showed fatty infiltration Anxiety. Controlled Seroquel low-dose initiated on 05/27. Mood seems OK. DVT prophylaxis Sequential compression devices. Discharge Planning Patient has no funding for rehabilitation. automotive finance manager is following up with [facility] regarding status of applications. Occupational therapy recommends shower bench, 3-1 bedside commode for discharge. PT recommends right AFO. Jaycob Rebolledo Jul 07, 2016 08:31 Mehnaz Duval MD Jul 07, 2016 18:02
[2016-07-07 08:55] VITALS: BP 115/69; PULSE 76; RESP 16; TEMP 97.9; O2SAT 95
[2016-07-07] MEDS: LISINOPRIL 10 MG TAB PO SCH (09:48)
[2016-07-07] MEDS: METOPROLOL TARTRATE 25 MG TAB PO SCH ×2 (09:48→21:58)
[2016-07-07] MEDS: RANITIDINE HCL 150 MG TAB PO SCH ×2 (09:48→21:59)
[2016-07-07] MEDS: GABAPENTIN 100 MG CAP PO SCH ×3 (09:48→18:37)
[2016-07-07] MEDS: POTASSIUM CHLORIDE 10 MEQ CONTROLLED RELEASE TAB PO SCH (09:48)
[2016-07-07] MEDS: metroNIDAZOLE 500 MG TAB PO SCH ×2 (09:48→21:57)
[2016-07-07 20:00] VITALS: BP 104/64; PULSE 76; RESP 18; TEMP 97.2; O2SAT 96
[2016-07-07] MEDS: QUEtiapine FUMARATE 25 MG TAB PO SCH (21:58)
[2016-07-08 08:00] VITALS: BP 104/71; PULSE 74; RESP 20; TEMP 96.2; O2SAT 97
--- NOTE | 2016-07-08 10:01 | HHI.PR ---
Subjective Remarks Patient seen and examined today. Patient denies any new complaints. Patient is now able lift her right leg off the bed Objective Vitals Vital Signs Date Time Temp Pulse Resp B/P Pulse Ox O2 Delivery O2 Flow Rate FiO2 07/08/16 08:00 96.2 74 20 104/71 97 07/07/16 20:00 97.2 76 18 104/64 96 I/O 07/07/16 07/07/16 07/07/16 07/08/16 07/08/16 07/08/16 06:59 14:59 22:59 06:59 14:59 22:59 Intake Total 800 ml Balance 800 ml Intake Oral 800 ml # Voids 5 3 # Bowel Movements 1 0 Objective Remarks GENERAL: Well-developed, well-nourished, in no acute distress. alert and orientated HEENT: Head is normocephalic without any lesions or masses noted right facial droop. Eyes: Pupils equal round reactive to light. Extraocular muscles are intact. Conjunctivae were clear. NECK: Supple without any masses. Trachea midline no deviation. CARDIAC: Regular rhythm, regular rate. S1/S2 are heard. No murmurs gallops or rubs. LUNGS: Clear to auscultation bilaterally. No wheeze, rhonchi or rales. No use of accessory muscles on inspiration or expiration. ABDOMEN: Soft, nontender. Nondistended. Bowel sounds heard in all 4 quadrants. No organomegaly or masses. Negative rebound, negative guarding EXTREMITIES: No edema, pulses are equal bilaterally. No cyanosis or clubbing NEUROLOGY: Mood and affect appear appropriate. Dense right hemiparesis which appears to be improving in the lower extremity. Patient is able lift her right leg off the bed. However she is not able to move her foot, wiggle her toes. Her right upper extremity is still flaccid. 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 Venegas has evaluated the patient. The bleed has been stable on repeat head CT. No surgery needed. Speech therapy has been following the patient and last documented diet recommendation was 05/24/16 to indicate mechanical soft diet with thin liquids. As per continue speech therapy it would appear as if the patient has been refusing therapy for at least 90% of the time. We'll need to continue speech therapy until they indicate the patient no longer requires therapy Occupational therapy indicates OT at rehabilitation. Will need intensive occupational therapy evaluation until patient cleared by OT for discharge or patient's functional capacity can no longer improve Physical therapy indicating PT at rehabilitation. We'll need to continue intensive physical therapy, continue right AFO, Right arm pain, controlled Continue Neurontin for right arm neuropathic pain Dysuria Urinalysis indicates small amount leukocyte esterase, WBCs 1519, squamous epithelial cells 0-5, possible contamination, Urine culture shows contamination with Gardnerella vaginalis Flagyl 500 mg twice daily for 7 days Hypertension, blood pressure stable Norvasc 10 mg daily, lisinopril 10 mg daily Lopressor 12.5 mg twice daily Alcohol and cocaine abuse dependence patient previously counseled. Status post thiamine Tobacco abuse Counseled on cessation Chronic hepatitis C, chronic Patient with chronic transaminitis liver ultrasound showed fatty infiltration Anxiety. Controlled Seroquel low-dose initiated on 05/27. Mood seems OK. DVT prophylaxis Sequential compression devices. Discharge Planning Patient has no funding for rehabilitation. manager of purchasing is following up with [facility] regarding status of applications. Occupational therapy recommends shower bench, 3-1 bedside commode for discharge. PT recommends right AFO. Jaycob Rebolledo Jul 08, 2016 10:01
[2016-07-08] MEDS: POTASSIUM CHLORIDE 10 MEQ CONTROLLED RELEASE TAB PO SCH (12:10)
[2016-07-08] MEDS: LISINOPRIL 10 MG TAB PO SCH (12:10)
[2016-07-08] MEDS: RANITIDINE HCL 150 MG TAB PO SCH ×2 (12:10→20:42)
[2016-07-08] MEDS: GABAPENTIN 100 MG CAP PO SCH ×3 (12:10→17:10)
[2016-07-08] MEDS: METOPROLOL TARTRATE 25 MG TAB PO SCH ×2 (12:10→20:42)
[2016-07-08 20:00] VITALS: BP 113/77; PULSE 78; RESP 18; TEMP 96.1; O2SAT 97
[2016-07-08] MEDS: QUEtiapine FUMARATE 25 MG TAB PO SCH (20:42)
[2016-07-09 08:00] VITALS: BP 102/71; PULSE 76; RESP 20; TEMP 97; O2SAT 96
--- NOTE | 2016-07-09 08:40 | HHI.PR ---
Subjective Remarks Patient seen and examined today. Patient denies any new complaints. Patient has had minimal improvement in the right lower extremity with lifting it off the bed. She still cannot wiggle her toes Respiratory: DENIES: Cough, Shortness of breath, Wheezing Cardiovascular: DENIES: Chest pain, Palpitations Gastrointestinal: DENIES: Abdominal pain, Change in stools Neurological: DENIES: Headache, Numbness, Weakness Objective Vitals Vital Signs Date Time Temp Pulse Resp B/P Pulse Ox O2 Delivery O2 Flow Rate FiO2 07/08/16 20:00 96.1 78 18 113/77 97 I/O 07/08/16 07/08/16 07/08/16 07/09/16 07/09/16 07/09/16 07:00 15:00 23:00 07:00 15:00 23:00 Intake Total 660 ml 210 ml Balance 660 ml 210 ml Intake Oral 660 ml 210 ml # Voids 3 4 2 2 # Bowel Movements 0 2 1 0 Objective Remarks GENERAL: Well-developed, well-nourished, in no acute distress. alert and orientated HEENT: Head is normocephalic without any lesions or masses noted right facial droop. Eyes: Pupils equal round reactive to light. Extraocular muscles are intact. Conjunctivae were clear. NECK: Supple without any masses. Trachea midline no deviation. CARDIAC: Regular rhythm, regular rate. S1/S2 are heard. No murmurs gallops or rubs. LUNGS: Clear to auscultation bilaterally. No wheeze, rhonchi or rales. No use of accessory muscles on inspiration or expiration. ABDOMEN: Soft, nontender. Nondistended. Bowel sounds heard in all 4 quadrants. No organomegaly or masses. Negative rebound, negative guarding EXTREMITIES: No edema, pulses are equal bilaterally. No cyanosis or clubbing NEUROLOGY: Mood and affect appear appropriate. Dense right hemiparesis which appears to be improving in the lower extremity. Patient is able lift her right leg off the bed. However she is not able to move her foot, wiggle her toes. Her right upper extremity is still flaccid. 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 Venegas has evaluated the patient. The bleed has been stable on repeat head CT. No surgery needed. Speech therapy has been following the patient and last documented diet recommendation was 05/24/16 to indicate mechanical soft diet with thin liquids. As per continue speech therapy it would appear as if the patient has been refusing therapy for at least 90% of the time. We'll need to continue speech therapy until they indicate the patient no longer requires therapy Occupational therapy indicates OT at rehabilitation. Will need intensive occupational therapy evaluation until patient cleared by OT for discharge or patient's functional capacity can no longer improve Physical therapy indicating PT at rehabilitation. We'll need to continue intensive physical therapy, continue right AFO, Right arm pain, controlled Continue Neurontin for right arm neuropathic pain Dysuria Urinalysis indicates small amount leukocyte esterase, WBCs 1519, squamous epithelial cells 0-5, possible contamination, Urine culture shows contamination with Gardnerella vaginalis Status post Flagyl 500 mg twice daily for 7 days Hypertension, blood pressure stable Norvasc 10 mg daily, lisinopril 10 mg daily Lopressor 12.5 mg twice daily Alcohol and cocaine abuse dependence patient previously counseled. Status post thiamine Tobacco abuse Counseled on cessation Chronic hepatitis C, chronic Patient with chronic transaminitis liver ultrasound showed fatty infiltration Anxiety. Controlled Seroquel low-dose initiated on 05/27. Mood seems OK. DVT prophylaxis Sequential compression devices. Discharge Planning Patient has no funding for rehabilitation. water manager is following up with [facility] regarding status of applications. Occupational therapy recommends shower bench, 3-1 bedside commode for discharge. PT recommends right AFO. Jaycob Rebolledo Jul 09, 2016 08:40 Mehnaz Duval MD Jul 09, 2016 17:56
[2016-07-09] MEDS: LISINOPRIL 10 MG TAB PO SCH (09:00)
[2016-07-09] MEDS: METOPROLOL TARTRATE 25 MG TAB PO SCH ×2 (09:00→21:50)
[2016-07-09] MEDS: POTASSIUM CHLORIDE 10 MEQ CONTROLLED RELEASE TAB PO SCH (10:11)
[2016-07-09] MEDS: GABAPENTIN 100 MG CAP PO SCH ×3 (10:11→18:00)
[2016-07-09] MEDS: RANITIDINE HCL 150 MG TAB PO SCH ×2 (10:11→21:50)
[2016-07-09 21:45] VITALS: BP 120/76; PULSE 79; RESP 18; TEMP 97.6; O2SAT 98
[2016-07-09] MEDS: QUEtiapine FUMARATE 25 MG TAB PO SCH (21:50)
--- NOTE | 2016-07-10 07:28 | HHI.PR ---
Subjective Remarks Patient seen and examined today. Patient denies any new complaints. No change in clinical status. Objective Vitals Vital Signs Date Time Temp Pulse Resp B/P Pulse Ox O2 Delivery O2 Flow Rate FiO2 07/09/16 21:45 97.6 79 18 120/76 98 07/09/16 08:00 97.0 76 20 102/71 96 I/O 07/09/16 07/09/16 07/09/16 07/10/16 07/10/16 07/10/16 06:59 14:59 22:59 06:59 14:59 22:59 Intake Total 900 ml 720 ml Balance 900 ml 720 ml Intake Oral 900 ml 720 ml # Voids 2 6 5 3 # Bowel Movements 0 1 1 Objective Remarks GENERAL: Well-developed, well-nourished, in no acute distress. alert and orientated HEENT: Head is normocephalic without any lesions or masses noted right facial droop. NECK: Supple without any masses. Trachea midline no deviation. CARDIAC: Regular rhythm, regular rate. S1/S2 are heard. No murmurs gallops or rubs. LUNGS: Clear to auscultation bilaterally. No wheeze, rhonchi or rales. No use of accessory muscles on inspiration or expiration. ABDOMEN: Soft, nontender. Nondistended. Bowel sounds heard in all 4 quadrants. No organomegaly or masses. Negative rebound, negative guarding EXTREMITIES: No edema, pulses are equal bilaterally. No cyanosis or clubbing NEUROLOGY: Mood and affect appear appropriate. Dense right hemiparesis which appears to be improving in the lower extremity. Patient is able lift her right leg off the bed. However she is not able to move her foot, wiggle her toes. Her right upper extremity is still flaccid. 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 Venegas has evaluated the patient. The bleed has been stable on repeat head CT. No surgery needed. Speech therapy has been following the patient and last documented diet recommendation was 05/24/16 to indicate mechanical soft diet with thin liquids. As per continue speech therapy it would appear as if the patient has been refusing therapy for at least 90% of the time. We'll need to continue speech therapy until they indicate the patient no longer requires therapy Occupational therapy indicates OT at rehabilitation. Will need intensive occupational therapy evaluation until patient cleared by OT for discharge or patient's functional capacity can no longer improve Physical therapy indicating PT at rehabilitation. We'll need to continue intensive physical therapy, continue right AFO, Right arm pain, controlled Continue Neurontin for right arm neuropathic pain Dysuria, resolved Urinalysis indicates small amount leukocyte esterase, WBCs 1519, squamous epithelial cells 0-5, possible contamination, Urine culture shows contamination with Gardnerella vaginalis Status post Flagyl 500 mg twice daily for 7 days Hypertension, blood pressure stable Norvasc 10 mg daily, lisinopril 10 mg daily Lopressor 12.5 mg twice daily Alcohol and cocaine abuse dependence patient previously counseled. Status post thiamine Tobacco abuse Counseled on cessation Chronic hepatitis C, chronic Patient with chronic transaminitis liver ultrasound showed fatty infiltration Anxiety. Controlled Seroquel low-dose initiated on 05/27. Mood seems OK. DVT prophylaxis Sequential compression devices. Discharge Planning Patient has no funding for rehabilitation. manager utilization review is following up with [facility] regarding status of applications. Occupational therapy recommends shower bench, 3-1 bedside commode for discharge. PT recommends right AFO. Jaycob Rebolledo Jul 10, 2016 07:28 Mehnaz Duval MD Jul 10, 2016 12:27
[2016-07-10 08:00] VITALS: BP 117/68; PULSE 78; RESP 16; TEMP 96.9; O2SAT 100
[2016-07-10] MEDS: METOPROLOL TARTRATE 25 MG TAB PO SCH ×2 (10:08→21:52)
[2016-07-10] MEDS: RANITIDINE HCL 150 MG TAB PO SCH ×2 (10:08→21:52)
[2016-07-10] MEDS: GABAPENTIN 100 MG CAP PO SCH ×3 (10:08→18:00)
[2016-07-10] MEDS: POTASSIUM CHLORIDE 10 MEQ CONTROLLED RELEASE TAB PO SCH (10:08)
[2016-07-10] MEDS: LISINOPRIL 10 MG TAB PO SCH (10:09)
[2016-07-10] MEDS: ACETAMINOPHEN 325 MG TAB PO PRN (10:09)
[2016-07-10 20:00] VITALS: BP 107/71; PULSE 77; RESP 16; TEMP 96.6; O2SAT 100
[2016-07-10] MEDS: QUEtiapine FUMARATE 25 MG TAB PO SCH (21:53)
[2016-07-11 08:00] VITALS: BP 110/68; PULSE 79; RESP 18; TEMP 96.9; O2SAT 98
[2016-07-11] MEDS: ACETAMINOPHEN 325 MG TAB PO PRN (08:50)
[2016-07-11] MEDS: RANITIDINE HCL 150 MG TAB PO SCH ×2 (08:50→22:14)
[2016-07-11] MEDS: GABAPENTIN 100 MG CAP PO SCH ×3 (08:50→18:00)
[2016-07-11] MEDS: LISINOPRIL 5 MG TAB PO SCH (08:50)
[2016-07-11] MEDS: METOPROLOL TARTRATE 25 MG TAB PO SCH ×2 (08:51→22:14)
[2016-07-11] MEDS: POTASSIUM CHLORIDE 10 MEQ CONTROLLED RELEASE TAB PO SCH (08:51)
--- NOTE | 2016-07-11 09:29 | HHI.PR ---
Subjective Remarks Patient seen and examined today. Patient has any new complaints. No change in clinical status. Objective Vitals Vital Signs Date Time Temp Pulse Resp B/P Pulse Ox O2 Delivery O2 Flow Rate FiO2 07/11/16 08:00 96.9 79 18 110/68 98 07/10/16 20:00 96.6 77 16 107/71 100 I/O 07/10/16 07/10/16 07/10/16 07/11/16 07/11/16 07/11/16 07:00 15:00 23:00 07:00 15:00 23:00 Intake Total 650 ml Balance 650 ml Intake Oral 650 ml # Voids 3 2 2 2 # Bowel Movements 1 Objective Remarks GENERAL: Well-developed, well-nourished, in no acute distress. alert and orientated HEENT: Head is normocephalic without any lesions or masses noted right facial droop. NECK: Supple without any masses. Trachea midline no deviation. CARDIAC: Regular rhythm, regular rate. S1/S2 are heard. No murmurs gallops or rubs. LUNGS: Clear to auscultation bilaterally. No wheeze, rhonchi or rales. No use of accessory muscles on inspiration or expiration. ABDOMEN: Soft, nontender. Nondistended. Bowel sounds heard in all 4 quadrants. No organomegaly or masses. Negative rebound, negative guarding EXTREMITIES: No edema, pulses are equal bilaterally. No cyanosis or clubbing NEUROLOGY: Mood and affect appear appropriate. Dense right hemiparesis which appears to be improving in the lower extremity. Patient is able lift her right leg off the bed. However she is not able to move her foot, wiggle her toes. Her right upper extremity is still flaccid. 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 Venegas has evaluated the patient. The bleed has been stable on repeat head CT. No surgery needed. Speech therapy has been following the patient and last documented diet recommendation was 05/24/16 to indicate mechanical soft diet with thin liquids. As per continue speech therapy it would appear as if the patient has been refusing therapy for at least 90% of the time. We'll need to continue speech therapy until they indicate the patient no longer requires therapy Occupational therapy indicates OT at rehabilitation. Will need intensive occupational therapy evaluation until patient cleared by OT for discharge or patient's functional capacity can no longer improve Physical therapy indicating PT at rehabilitation. We'll need to continue intensive physical therapy, continue right AFO, Right arm pain, controlled Continue Neurontin for right arm neuropathic pain Dysuria, resolved Urinalysis indicates small amount leukocyte esterase, WBCs 1519, squamous epithelial cells 0-5, possible contamination, Urine culture shows contamination with Gardnerella vaginalis Status post Flagyl 500 mg twice daily for 7 days Hypertension, blood pressure stable Norvasc 10 mg daily, lisinopril 10 mg daily Lopressor 12.5 mg twice daily Alcohol and cocaine abuse dependence patient previously counseled. Status post thiamine Tobacco abuse Counseled on cessation Chronic hepatitis C, chronic Patient with chronic transaminitis liver ultrasound showed fatty infiltration Anxiety. Controlled Seroquel low-dose initiated on 05/27. Mood seems OK. DVT prophylaxis Sequential compression devices. Discharge Planning Patient has no funding for rehabilitation. manager income tax is following up with [facility] regarding status of applications. Occupational therapy recommends shower bench, 3-1 bedside commode for discharge. PT recommends right AFO. Jaycob Rebolledo Jul 11, 2016 09:29 Mehnaz Duval MD Jul 11, 2016 18:12
[2016-07-11 20:00] VITALS: BP 114/72; PULSE 80; RESP 16; TEMP 97.9; O2SAT 97
[2016-07-11] MEDS: QUEtiapine FUMARATE 25 MG TAB PO SCH (22:14)
--- NOTE | 2016-07-12 07:53 | HHI.PR ---
Subjective Remarks Patient seen and examined today. Patient denies any new complaints. No change in clinical status. Objective Vitals Vital Signs Date Time Temp Pulse Resp B/P Pulse Ox O2 Delivery O2 Flow Rate FiO2 07/11/16 20:00 97.9 80 16 114/72 97 07/11/16 09:50 20 07/11/16 08:00 96.9 79 18 110/68 98 I/O 07/11/16 07/11/16 07/11/16 07/12/16 07/12/16 07/12/16 07:00 15:00 23:00 07:00 15:00 23:00 Intake Total 525 ml Balance 525 ml Intake Oral 525 ml # Voids 2 2 4 # Bowel Movements 2 1 Objective Remarks GENERAL: Well-developed, well-nourished, in no acute distress. alert and orientated HEENT: Head is normocephalic without any lesions or masses noted right facial droop. NECK: Supple without any masses. Trachea midline no deviation. CARDIAC: Regular rhythm, regular rate. S1/S2 are heard. No murmurs gallops or rubs. LUNGS: Clear to auscultation bilaterally. No wheeze, rhonchi or rales. No use of accessory muscles on inspiration or expiration. ABDOMEN: Soft, nontender. Nondistended. Bowel sounds heard in all 4 quadrants. No organomegaly or masses. Negative rebound, negative guarding EXTREMITIES: No edema, pulses are equal bilaterally. No cyanosis or clubbing NEUROLOGY: Mood and affect appear appropriate. Dense right hemiparesis which appears to be improving in the lower extremity. Patient is able lift her right leg off the bed. However she is not able to move her foot, wiggle her toes. Her right upper extremity is still flaccid. 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 Venegas has evaluated the patient. The bleed has been stable on repeat head CT. No surgery needed. Speech therapy has been following the patient and last documented diet recommendation was 05/24/16 to indicate mechanical soft diet with thin liquids. As per continue speech therapy it would appear as if the patient has been refusing therapy for at least 90% of the time. We'll need to continue speech therapy until they indicate the patient no longer requires therapy Occupational therapy indicates OT at rehabilitation. Will need intensive occupational therapy evaluation until patient cleared by OT for discharge or patient's functional capacity can no longer improve Physical therapy indicating PT at rehabilitation. We'll need to continue intensive physical therapy, continue right AFO, Right arm pain, controlled Continue Neurontin for right arm neuropathic pain Dysuria, resolved Urinalysis indicates small amount leukocyte esterase, WBCs 1519, squamous epithelial cells 0-5, possible contamination, Urine culture shows contamination with Gardnerella vaginalis Status post Flagyl 500 mg twice daily for 7 days Hypertension, blood pressure stable Norvasc 10 mg daily, lisinopril 10 mg daily Lopressor 12.5 mg twice daily Alcohol and cocaine abuse dependence patient previously counseled. Status post thiamine Tobacco abuse Counseled on cessation Chronic hepatitis C, chronic Patient with chronic transaminitis liver ultrasound showed fatty infiltration Anxiety. Controlled Seroquel low-dose initiated on 05/27. Mood seems OK. DVT prophylaxis Sequential compression devices. Discharge Planning Patient has no funding for rehabilitation. reliability manager is following up with [facility] regarding status of applications. Occupational therapy recommends shower bench, 3-1 bedside commode for discharge. PT recommends right AFO. Jaycob Rebolledo Jul 12, 2016 07:52
[2016-07-12] MEDS: RANITIDINE HCL 150 MG TAB PO SCH ×2 (10:05→21:17)
[2016-07-12] MEDS: METOPROLOL TARTRATE 25 MG TAB PO SCH ×2 (10:05→21:00)
[2016-07-12] MEDS: GABAPENTIN 100 MG CAP PO SCH ×3 (10:05→18:35)
[2016-07-12] MEDS: LISINOPRIL 5 MG TAB PO SCH (10:05)
[2016-07-12] MEDS: POTASSIUM CHLORIDE 10 MEQ CONTROLLED RELEASE TAB PO SCH (10:05)
[2016-07-12 10:53] VITALS: BP 135/77; PULSE 79; RESP 20; TEMP 96.4; O2SAT 97
[2016-07-12 20:00] VITALS: BP 102/69; PULSE 67; PULSE 87; RESP 20; TEMP 96.8; O2SAT 97
[2016-07-12] MEDS: QUEtiapine FUMARATE 25 MG TAB PO SCH (21:17)
[2016-07-13 07:56] VITALS: BP 110/88; PULSE 81; RESP 17; TEMP 98.1; O2SAT 96
--- NOTE | 2016-07-13 08:54 | HHI.PR ---
Subjective Remarks Patient complains of increased urinary frequency starting last night. Denies any dysuria. Does admit to history of UTIs. Objective Vitals Vital Signs Date Time Temp Pulse Resp B/P Pulse Ox O2 Delivery O2 Flow Rate FiO2 07/13/16 07:56 98.1 81 17 110/88 96 07/12/16 20:00 96.8 87 20 102/69 97 07/12/16 10:53 96.4 79 20 135/77 97 I/O 07/12/16 07/12/16 07/12/16 07/13/16 07/13/16 07/13/16 07:00 15:00 23:00 07:00 15:00 23:00 Intake Total 600 ml 360 ml 360 ml Balance 600 ml 360 ml 360 ml Intake Oral 600 ml 360 ml 360 ml # Voids 4 5 2 3 # Bowel Movements 1 0 Imaging Last Impressions Chest X-Ray 05/12/16 0600 Signed Impressions: Service Date/Time: Thursday, May 12, 2016 05:16 - CONCLUSION: No acute disease. aNdir Hebert MD Liver Ultrasound 05/11/16 0000 Signed Impressions: Service Date/Time: Wednesday, May 11, 2016 08:30 - CONCLUSION: 1. Liver is slightly echogenic which can be seen with fatty infiltration/hepatocellular dysfunction. 2. No evidence for cholelithiasis. Geremias Smith MD Head Magnetic Resonance Angiography 05/11/16 0000 Signed Impressions: Service Date/Time: Wednesday, May 11, 2016 16:21 - CONCLUSION: No acute [place] vascular abnormalities. Jeremy Toledo MD Brain MRI 05/11/16 0000 Signed Impressions: Service Date/Time: Wednesday, May 11, 2016 16:21 - CONCLUSION: 1. Focal acute intraparenchymal hemorrhage in the left thalamus measuring 2.8 cm most likely representing a focal hemorrhagic infarction. 2. Bilateral cortical atrophy and mild chronic white matter changes. 3. No enhancing mass occupying lesions are demonstrated. Estrada Vigil MD Abdomen X-Ray 05/11/16 0000 Signed Impressions: Service Date/Time: Wednesday, May 11, 2016 16:03 - CONCLUSION: No evidence of obstruction. No MRI incompatible foreign body is identified. Estrada Vigil MD Head CT 05/10/16 1431 Signed Impressions: Service Date/Time: Tuesday, May 10, 2016 15:07 - CONCLUSION: 1. 2.3 cm left thalamic hypertensive type hemorrhage with approximately 4 mm of [id number] subfalcine shift. 2. Mild periventricular small vessel ischemic demyelination. 3. Results were called to Dr. Barboza at the time of this dictation. Nicholas Dove MD Objective Remarks GENERAL: Thin patient in no apparent distress. SKIN: Warm and dry. HEAD: Atraumatic. Normocephalic. CARDIOVASCULAR: Regular rate and rhythm. RESPIRATORY: Limited anterior exam. No accessory muscle use. Clear to auscultation. Breath sounds equal bilaterally. GASTROINTESTINAL: Abdomen soft, non-tender, nondistended. MUSCULOSKELETAL: Thin legs. NEUROLOGICAL: Awake and alert. Unable to move R arm. 3/5 strength R leg. Normal speech. PSYCHIATRIC: Appropriate mood and affect; insight and judgment normal. Procedures None Urinary Catheter: No Vascular Central Line Catheter: No A/P Problem List: (1) Basal ganglia hemorrhage Status: Chronic (2) Hemiparesis affecting right side as late effect of cerebrovascular accident (CVA) Status: Chronic (3) Hypertensive emergency Status: Resolved (4) Metabolic acidosis Status: Resolved (5) UTI (urinary tract infection) Status: Resolved Assessment and Plan Left basal ganglia bleed with 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 Venegas has evaluated the patient. The bleed has been stable on repeat head CT. No surgery needed. Speech therapy has been following the patient and last documented diet recommendation was 05/24/16 to indicate mechanical soft diet with thin liquids. As per continue speech therapy it would appear as if the patient has been refusing therapy for at least 90% of the time. We'll need to continue speech therapy until they indicate the patient no longer requires therapy Occupational therapy indicates OT at rehabilitation. Will need intensive occupational therapy evaluation until patient cleared by OT for discharge or patient's functional capacity can no longer improve Physical therapy indicating PT at rehabilitation. Will need to continue intensive physical therapy, continue right AFO, Right arm pain, controlled Continue Neurontin for right arm neuropathic pain Increased urinary frequency: started last night; patient wearing diaper New UA ordered, clean catch Previous dysuria with urine culture 06/28/16 showing contamination with Gardnerella vaginalis Status post Flagyl 500 mg twice daily for 7 days Hypertension, blood pressure stable Norvasc 10 mg daily, lisinopril 10 mg daily Lopressor 12.5 mg twice daily Alcohol and cocaine abuse dependence patient previously counseled. Status post thiamine Tobacco abuse Counseled on cessation Chronic hepatitis C, chronic Patient with chronic transaminitis liver ultrasound showed fatty infiltration Anxiety. Controlled Seroquel low-dose initiated on 05/27. Mood stable. DVT prophylaxis Sequential compression devices. Discharge Planning Patient has no funding for rehabilitation. pharmacist manager is following up with [facility] regarding status of applications. Occupational therapy recommends shower bench, 3-1 bedside commode for discharge. PT recommends right AFO. Elisabeth Church Jul 13, 2016 08:54
[2016-07-13] MEDS: LISINOPRIL 5 MG TAB PO SCH (09:07)
[2016-07-13] MEDS: POTASSIUM CHLORIDE 10 MEQ CONTROLLED RELEASE TAB PO SCH (09:07)
[2016-07-13] MEDS: METOPROLOL TARTRATE 25 MG TAB PO SCH ×2 (09:07→22:21)
[2016-07-13] MEDS: GABAPENTIN 100 MG CAP PO SCH ×3 (09:07→17:14)
[2016-07-13] MEDS: RANITIDINE HCL 150 MG TAB PO SCH ×2 (09:07→22:21)
[2016-07-13 20:00] VITALS: BP 107/70; PULSE 83; RESP 18; TEMP 97.3; O2SAT 96
[2016-07-13] MEDS: QUEtiapine FUMARATE 25 MG TAB PO SCH (22:21)
[2016-07-13] MEDS: MICONAZOLE NITRATE 200 MG VAG SUPP VAGINAL SCH (22:21)
[2016-07-13 22:57] LABS: BLOOD, URINE NEG (NEG); GLUCOSE,URINE NEG (NEG); KETONE, URINE NEG (NEG); NITRITE,URINE NEG (NEG); PH, URINE 5.5 (5.0-8.5)
[2016-07-13 23:18] LABS: METHOD OF COLLECTION CLEAN CATCH; URINE COLOR STRAW (YELLW/STRAW)
[2016-07-13 23:20] LABS: RBC, URINE 0-3 /hpf (0-3)
[2016-07-13 23:21] LABS: COMMENT (UR) CULTURE INDICATED; CULTURE IF INDICATED CULTURE INDICATED
[2016-07-14 08:00] VITALS: BP 122/77; PULSE 75; RESP 20; TEMP 96.2; O2SAT 97
[2016-07-14] MEDS: POTASSIUM CHLORIDE 10 MEQ CONTROLLED RELEASE TAB PO SCH (08:57)
[2016-07-14] MEDS: GABAPENTIN 100 MG CAP PO SCH ×3 (08:57→17:39)
[2016-07-14] MEDS: RANITIDINE HCL 150 MG TAB PO SCH ×2 (08:58→20:51)
[2016-07-14] MEDS: LISINOPRIL 5 MG TAB PO SCH (08:58)
[2016-07-14] MEDS: METOPROLOL TARTRATE 25 MG TAB PO SCH ×2 (08:59→20:51)
--- NOTE | 2016-07-14 11:15 | HHI.PR ---
Subjective Remarks Patient states the increased urinary frequency she was describing yesterday has now eased up. She does admit to possible yeast infection with white vaginal discharge and itching; the nurse made me aware of this yesterday and medication was ordered. Objective Vitals Vital Signs Date Time Temp Pulse Resp B/P Pulse Ox O2 Delivery O2 Flow Rate FiO2 07/14/16 08:00 96.2 75 20 122/77 97 07/13/16 20:00 97.3 83 18 107/70 96 I/O 07/13/16 07/13/16 07/13/16 07/14/16 07/14/16 07/14/16 06:59 14:59 22:59 06:59 14:59 22:59 Intake Total 360 ml 550 ml 480 ml 240 ml Output Total 200 ml Balance 360 ml 550 ml 280 ml 240 ml Intake Oral 360 ml 550 ml 480 ml 240 ml Output Urine Total 200 ml # Voids 3 2 2 Objective Remarks GENERAL: Thin patient in no apparent distress sleeping when I enter the room. SKIN: Warm and dry. HEAD: Atraumatic. Normocephalic. CARDIOVASCULAR: Regular rate and rhythm. RESPIRATORY: Limited anterior exam. No accessory muscle use. Clear to auscultation. Breath sounds equal bilaterally. GASTROINTESTINAL: Abdomen soft, non-tender, nondistended. NEUROLOGICAL: Awake and alert. Unable to move R arm. Normal speech. PSYCHIATRIC: Appropriate mood and affect; insight and judgment normal. Procedures None A/P Problem List: (1) Basal ganglia hemorrhage Status: Chronic (2) Hemiparesis affecting right side as late effect of cerebrovascular accident (CVA) Status: Chronic (3) Hypertensive emergency Status: Resolved (4) Metabolic acidosis Status: Resolved (5) UTI (urinary tract infection) Status: Resolved Assessment and Plan Left basal ganglia bleed with 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 Venegas has evaluated the patient. The bleed has been stable on repeat head CT. No surgery needed. Speech therapy has been following the patient and last documented diet recommendation was 05/24/16 to indicate mechanical soft diet with thin liquids. As per continue speech therapy it would appear as if the patient has been refusing therapy for at least 90% of the time. We'll need to continue speech therapy until they indicate the patient no longer requires therapy Occupational therapy indicates OT at rehabilitation. Will need intensive occupational therapy evaluation until patient cleared by OT for discharge or patient's functional capacity can no longer improve Physical therapy indicating PT at rehabilitation. 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 No nitrites. UA from 06/28 with Gardnerella vaginalis, and UA 05/10 with Escherichia coli. Urine culture is pending. Hold off on starting antibiotics at this time until culture results. Status post Flagyl 500 mg twice daily for 7 days Vaginal discharge: Patient with white vaginal discharge and pruritus. Could be a candidal infection although the patient has had gardnerella vaginalis on prior UA and is s/p treatment with Flagyl. -Monistat suppositories 3 days started yesterday, but if BV appears on urine culture, patient will require antibiotic treatment. Hypertension, blood pressure stable Norvasc 10 mg daily, lisinopril 10 mg daily Lopressor 12.5 mg twice daily Alcohol and cocaine abuse dependence patient previously counseled. Status post thiamine Tobacco abuse Counseled on cessation Chronic hepatitis C, chronic Patient with chronic transaminitis liver ultrasound showed fatty infiltration Anxiety. Controlled Seroquel low-dose initiated on 05/27. Mood stable. DVT prophylaxis Sequential compression devices. Discharge Planning Patient has no funding for rehabilitation. publishing manager is following up with [facility] regarding status of applications. Occupational therapy recommends shower bench, 3-1 bedside commode for discharge. PT recommends right AFO. Elisabeth Church Jul 14, 2016 11:15
[2016-07-14 20:00] VITALS: BP 119/76; PULSE 78; RESP 18; TEMP 97.7; O2SAT 97
[2016-07-14] MEDS: QUEtiapine FUMARATE 25 MG TAB PO SCH (20:50)
[2016-07-14] MEDS: MICONAZOLE NITRATE 200 MG VAG SUPP VAGINAL SCH (20:52)
[2016-07-15 08:00] VITALS: BP 116/85; PULSE 74; RESP 20; TEMP 96.7; O2SAT 96
--- NOTE | 2016-07-15 08:05 | HHI.PR ---
Subjective Remarks Patient admits to stomachache but states the medication is helping. She has had this for 2 days, but states it only occurs in the mornings. Patient complained previously of white vaginal discharge and has been treated for yeast infection, but when I asked the patient today she states the discharge is thin although non-malodorous. Objective Vitals Vital Signs Date Time Temp Pulse Resp B/P Pulse Ox O2 Delivery O2 Flow Rate FiO2 07/14/16 20:00 97.7 78 18 119/76 97 07/14/16 08:00 96.2 75 20 122/77 97 I/O 07/14/16 07/14/16 07/14/16 07/15/16 07/15/16 07/15/16 07:00 15:00 23:00 07:00 15:00 23:00 Intake Total 240 ml 660 ml Balance 240 ml 660 ml Intake Oral 240 ml 660 ml # Voids 2 3 1 Objective Remarks GENERAL: Thin patient in no apparent distress sleeping when I enter the room. SKIN: Warm and dry. HEAD: Atraumatic. Normocephalic. CARDIOVASCULAR: Regular rate and rhythm. RESPIRATORY: No accessory muscle use. Clear to auscultation. Breath sounds equal bilaterally. GASTROINTESTINAL: Normoactive bowel sounds. Abdomen soft, non-tender, nondistended. MUSCULOSKELETAL: 2+ right distal radial pulse. NEUROLOGICAL: Awake and alert. Unable to move R arm. Normal speech. PSYCHIATRIC: Appropriate mood and affect; insight and judgment normal. Procedures None Urinary Catheter: No Vascular Central Line Catheter: No A/P Problem List: (1) Basal ganglia hemorrhage Status: Chronic (2) Hemiparesis affecting right side as late effect of cerebrovascular accident (CVA) Status: Chronic (3) Hypertensive emergency Status: Resolved (4) Metabolic acidosis Status: Resolved (5) UTI (urinary tract infection) Status: Resolved Assessment and Plan Left basal ganglia bleed with 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 Venegas has evaluated the patient. The bleed has been stable on repeat head CT. No surgery needed. Speech therapy has been following the patient and last documented diet recommendation was 05/24/16 to indicate mechanical soft diet with thin liquids. As per continue speech therapy it would appear as if the patient has been refusing therapy for at least 90% of the time. We'll need to continue speech therapy until they indicate the patient no longer requires therapy Occupational therapy indicates OT at rehabilitation. Will need intensive occupational therapy evaluation until patient cleared by OT for discharge or patient's functional capacity can no longer improve Physical therapy indicating PT at rehabilitation. 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 No nitrites. UA from 06/28 with Gardnerella vaginalis, and UA 05/10 with Escherichia coli. Urine culture 07/13 with 50-100,000 mixed gram positive manasa indicating probable contaminants as expected. Status post Flagyl 500 mg twice daily for 7 days Vaginal discharge: Patient with white vaginal discharge and pruritus. Could be a candidal infection although the patient has had gardnerella vaginalis on prior UA and is s/p treatment with Flagyl. -Patient has had treatment with Monistat suppositories 3 days. Patient does tell me today discharge is thin likely BV rather than yeast although non- malodorous. Patient has one more treatment of Monistat. If discharge persists, will need to perform wet prep to rule out BV. Hypertension, blood pressure stable Norvasc 10 mg daily, lisinopril 10 mg daily Lopressor 12.5 mg twice daily Alcohol and cocaine abuse dependence patient previously counseled. Status post thiamine Tobacco abuse Counseled on cessation Chronic hepatitis C, chronic Patient with chronic transaminitis liver ultrasound showed fatty infiltration Anxiety. Controlled Seroquel low-dose initiated on 05/27. Mood stable. DVT prophylaxis Sequential compression devices. Discharge Planning Patient has no funding for rehabilitation. estimation manager is following up with [facility] regarding status of applications. Occupational therapy recommends shower bench, 3-1 bedside commode for discharge. PT recommends right AFO. Elisabeth Church Jul 15, 2016 08:05 Grecia Gunn MD Jul 15, 2016 18:44
[2016-07-15] MEDS: LISINOPRIL 5 MG TAB PO SCH (08:32)
[2016-07-15] MEDS: GABAPENTIN 100 MG CAP PO SCH ×3 (08:32→16:33)
[2016-07-15] MEDS: METOPROLOL TARTRATE 25 MG TAB PO SCH ×2 (08:33→20:28)
[2016-07-15] MEDS: POTASSIUM CHLORIDE 10 MEQ CONTROLLED RELEASE TAB PO SCH (08:34)
[2016-07-15] MEDS: RANITIDINE HCL 150 MG TAB PO SCH ×2 (08:34→20:27)
[2016-07-15] MEDS: ACETAMINOPHEN 325 MG TAB PO PRN ×2 (08:34→22:39)
[2016-07-15 20:00] VITALS: BP 120/72; PULSE 78; RESP 20; TEMP 97.4; O2SAT 98
[2016-07-15] MEDS: QUEtiapine FUMARATE 25 MG TAB PO SCH (20:27)
[2016-07-15] MEDS: MICONAZOLE NITRATE 200 MG VAG SUPP VAGINAL SCH (20:28)
[2016-07-16 08:00] VITALS: BP 114/75; PULSE 72; RESP 16; TEMP 97.8; O2SAT 96
--- NOTE | 2016-07-16 08:55 | HHI.PR ---
Subjective Remarks Patient admits to an upset stomach again but denies any abdominal pain. Denies any fevers or vomiting. Still admits to vaginal discharge and states it is worse after using the Monistat. Patient has a history of BV and gonorrhea and chlamydia. Objective Vitals Vital Signs Date Time Temp Pulse Resp B/P Pulse Ox O2 Delivery O2 Flow Rate FiO2 07/15/16 23:55 18 07/15/16 20:00 97.4 78 20 120/72 98 I/O 07/15/16 07/15/16 07/15/16 07/16/16 07/16/16 07/16/16 07:00 15:00 23:00 07:00 15:00 23:00 Intake Total 900 ml 120 ml 60 ml Balance 900 ml 120 ml 60 ml Intake Oral 900 ml 120 ml 60 ml # Voids 3 2 3 # Bowel Movements 1 Imaging Last Impressions Chest X-Ray 05/12/16 0600 Signed Impressions: Service Date/Time: Thursday, May 12, 2016 05:16 - CONCLUSION: No acute disease. Nadir Hebert MD Liver Ultrasound 05/11/16 0000 Signed Impressions: Service Date/Time: Wednesday, May 11, 2016 08:30 - CONCLUSION: 1. Liver is slightly echogenic which can be seen with fatty infiltration/hepatocellular dysfunction. 2. No evidence for cholelithiasis. Geremias Smith MD Head Magnetic Resonance Angiography 05/11/16 0000 Signed Impressions: Service Date/Time: Wednesday, May 11, 2016 16:21 - CONCLUSION: No acute [place] vascular abnormalities. Jeremy Toledo MD Brain MRI 05/11/16 0000 Signed Impressions: Service Date/Time: Wednesday, May 11, 2016 16:21 - CONCLUSION: 1. Focal acute intraparenchymal hemorrhage in the left thalamus measuring 2.8 cm most likely representing a focal hemorrhagic infarction. 2. Bilateral cortical atrophy and mild chronic white matter changes. 3. No enhancing mass occupying lesions are demonstrated. Estrada Vigil MD Abdomen X-Ray 05/11/16 0000 Signed Impressions: Service Date/Time: Wednesday, May 11, 2016 16:03 - CONCLUSION: No evidence of obstruction. No MRI incompatible foreign body is identified. Estrada Vigil MD Head CT 05/10/16 1431 Signed Impressions: Service Date/Time: Tuesday, May 10, 2016 15:07 - CONCLUSION: 1. 2.3 cm left thalamic hypertensive type hemorrhage with approximately 4 mm of [id number] subfalcine shift. 2. Mild periventricular small vessel ischemic demyelination. 3. Results were called to Dr. Barboza at the time of this dictation. Nicholas Dove MD Objective Remarks GENERAL: Thin patient in no apparent distress. SKIN: Warm and dry. HEAD: Atraumatic. Normocephalic. CARDIOVASCULAR: Regular rate and rhythm. RESPIRATORY: Limited anterior exam. No accessory muscle use. Clear to auscultation. Breath sounds equal bilaterally. GASTROINTESTINAL: Abdomen and pelvis soft, non-tender, nondistended. No guarding. GENITOURINARY: Exam performed in the presence of RNs Liza and Afshan. Exam was difficult as patient has weakness in her right leg and was unable to fully relax during exam. Normal external genitalia without lesions or erythema. Vaginal vault without blood. Mild amount of white thin discharge noted. No froth or malodor. Cervical os was closed without drainage, but was friable upon insertion of GC swab. Patient generally uncomfortable with exam, but no cervical motion tenderness. Uterus and Bilateral adnexa could not be palpated, but no tenderness in these regions. NEUROLOGICAL: Awake and alert. Unable to move R arm. Normal speech. PSYCHIATRIC: Appropriate mood and affect; insight and judgment normal. Procedures None Urinary Catheter: No Vascular Central Line Catheter: No A/P Problem List: (1) Basal ganglia hemorrhage Status: Chronic (2) Hemiparesis affecting right side as late effect of cerebrovascular accident (CVA) Status: Chronic (3) Hypertensive emergency Status: Resolved (4) Metabolic acidosis Status: Resolved (5) UTI (urinary tract infection) Status: Resolved (6) Vaginal discharge Status: Acute Assessment and Plan Left basal ganglia bleed with 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 Venegas has evaluated the patient. The bleed has been stable on repeat head CT. No surgery needed. Speech therapy has been following the patient and last documented diet recommendation was 05/24/16 to indicate mechanical soft diet with thin liquids. As per continue speech therapy it would appear as if the patient has been refusing therapy for at least 90% of the time. We'll need to continue speech therapy until they indicate the patient no longer requires therapy Occupational therapy indicates OT at rehabilitation. Will need intensive occupational therapy evaluation until patient cleared by OT for discharge or patient's functional capacity can no longer improve Physical therapy indicating PT at rehabilitation. Will need to continue intensive physical therapy, continue right AFO. 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 No nitrites. UA from 06/28 with Gardnerella vaginalis, and UA 05/10 with Escherichia coli. Urine culture 07/13 with 50-100,000 mixed gram positive manasa indicating probable contaminants as expected. Status post Flagyl 500 mg twice daily for 7 days Vaginal discharge: Patient with white vaginal discharge and pruritus. Could be a candidal infection although the patient has had gardnerella vaginalis on prior UA and is s/p treatment with Flagyl. -Patient has had treatment with Monistat suppositories 3 days, discharge has persisted. Likely BV although has h/o of GC. No abdominal or pelvic pain, no vomiting, afebrile. Pelvic exam performed. Wet prep and GC testing ordered and pending. Hypertension, blood pressure stable Norvasc 10 mg daily, Lisinopril 10 mg daily Lopressor 12.5 mg twice daily Alcohol and cocaine abuse dependence patient previously counseled. Status post thiamine Tobacco abuse Counseled on cessation Chronic hepatitis C, chronic Patient with chronic transaminitis liver ultrasound showed fatty infiltration Anxiety. Controlled Seroquel low-dose initiated on 05/27. Mood stable. DVT prophylaxis Sequential compression devices. Discharge Planning Patient has no funding for rehabilitation. site safety manager is following up with [facility] regarding status of applications. Occupational therapy recommends shower bench, 3-1 bedside commode for discharge. PT recommends right AFO. Elisabeth Chucrh Jul 16, 2016 08:55 Grecia Gunn MD Jul 16, 2016 19:01
[2016-07-16] MEDS: METOPROLOL TARTRATE 25 MG TAB PO SCH ×2 (09:42→21:20)
[2016-07-16] MEDS: GABAPENTIN 100 MG CAP PO SCH ×3 (09:42→18:25)
[2016-07-16] MEDS: LISINOPRIL 5 MG TAB PO SCH (09:42)
[2016-07-16] MEDS: RANITIDINE HCL 150 MG TAB PO SCH ×2 (09:42→21:20)
[2016-07-16] MEDS: POTASSIUM CHLORIDE 10 MEQ CONTROLLED RELEASE TAB PO SCH (09:42)
[2016-07-16 20:00] VITALS: BP 111/77; PULSE 81; RESP 20; TEMP 97; O2SAT 98
[2016-07-16 20:17] LABS: CHLAMYDIA PCR NOT DETECTED (NOT DETECT); NEISSERIA PCR NOT DETECTED (NOT DETECT)
[2016-07-16] MEDS: QUEtiapine FUMARATE 25 MG TAB PO SCH (21:20)
[2016-07-17 08:53] VITALS: BP 110/78; PULSE 78; RESP 20; TEMP 97.2; O2SAT 97
[2016-07-17] MEDS: RANITIDINE HCL 150 MG TAB PO SCH ×2 (10:21→20:06)
[2016-07-17] MEDS: POTASSIUM CHLORIDE 10 MEQ CONTROLLED RELEASE TAB PO SCH (10:21)
[2016-07-17] MEDS: METOPROLOL TARTRATE 25 MG TAB PO SCH ×2 (10:22→20:06)
[2016-07-17] MEDS: GABAPENTIN 100 MG CAP PO SCH ×3 (10:22→18:00)
[2016-07-17] MEDS: LISINOPRIL 5 MG TAB PO SCH (10:22)
--- NOTE | 2016-07-17 14:05 | HHI.PR ---
Subjective Remarks Patient states she is stiff but has no other acute complaints. She denies further vaginal discharge. Objective Vitals Vital Signs Date Time Temp Pulse Resp B/P Pulse Ox O2 Delivery O2 Flow Rate FiO2 07/17/16 08:53 97.2 78 20 110/78 97 07/16/16 20:00 97.0 81 20 111/77 98 I/O 07/16/16 07/16/16 07/16/16 07/17/16 07/17/16 07/17/16 07:00 15:00 23:00 07:00 15:00 23:00 Intake Total 60 ml 220 ml 1400 ml Output Total 1 ml Balance 60 ml -1 ml 220 ml 1400 ml Intake Oral 60 ml 220 ml 1400 ml Stool Total 1 ml # Voids 3 5 3 9 # Bowel Movements 1 2 Imaging Last Impressions Chest X-Ray 05/12/16 0600 Signed Impressions: Service Date/Time: Thursday, May 12, 2016 05:16 - CONCLUSION: No acute disease. Nadir Hebert MD Liver Ultrasound 05/11/16 0000 Signed Impressions: Service Date/Time: Wednesday, May 11, 2016 08:30 - CONCLUSION: 1. Liver is slightly echogenic which can be seen with fatty infiltration/hepatocellular dysfunction. 2. No evidence for cholelithiasis. Geremias Smith MD Head Magnetic Resonance Angiography 05/11/16 0000 Signed Impressions: Service Date/Time: Wednesday, May 11, 2016 16:21 - CONCLUSION: No acute [place] vascular abnormalities. Jeremy Toledo MD Brain MRI 05/11/16 0000 Signed Impressions: Service Date/Time: Wednesday, May 11, 2016 16:21 - CONCLUSION: 1. Focal acute intraparenchymal hemorrhage in the left thalamus measuring 2.8 cm most likely representing a focal hemorrhagic infarction. 2. Bilateral cortical atrophy and mild chronic white matter changes. 3. No enhancing mass occupying lesions are demonstrated. Estrada Vigil MD Abdomen X-Ray 05/11/16 0000 Signed Impressions: Service Date/Time: Wednesday, May 11, 2016 16:03 - CONCLUSION: No evidence of obstruction. No MRI incompatible foreign body is identified. Estrada Vigil MD Head CT 05/10/16 1431 Signed Impressions: Service Date/Time: Tuesday, May 10, 2016 15:07 - CONCLUSION: 1. 2.3 cm left thalamic hypertensive type hemorrhage with approximately 4 mm of [id number] subfalcine shift. 2. Mild periventricular small vessel ischemic demyelination. 3. Results were called to Dr. Barboza at the time of this dictation. Nicholas Dove MD Objective Remarks GENERAL: Thin patient in no apparent distress. SKIN: Warm and dry. HEAD: Atraumatic. Normocephalic. CARDIOVASCULAR: Regular rate and rhythm. RESPIRATORY: Limited anterior exam. No accessory muscle use. Clear to auscultation. Breath sounds equal bilaterally. GASTROINTESTINAL: Abdomen soft, non-tender, nondistended. NEUROLOGICAL: Awake and alert. Unable to move R arm. 2+ right distal radial pulse. Normal speech. MUSCULOSKELETAL: No lower extremity edema bilaterally. Atrophied appearing legs and arms. PSYCHIATRIC: Appropriate mood and affect; insight and judgment normal. Procedures None Urinary Catheter: No Vascular Central Line Catheter: No A/P Problem List: (1) Basal ganglia hemorrhage Status: Chronic (2) Hemiparesis affecting right side as late effect of cerebrovascular accident (CVA) Status: Chronic (3) Hypertensive emergency Status: Resolved (4) Metabolic acidosis Status: Resolved (5) UTI (urinary tract infection) Status: Resolved (6) Vaginal discharge Status: Resolved Assessment and Plan Left basal ganglia bleed with 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 Venegas has evaluated the patient. The bleed has been stable on repeat head CT. No surgery needed. Speech therapy has been following the patient and last documented diet recommendation was 05/24/16 to indicate mechanical soft diet with thin liquids. As per continue speech therapy it would appear as if the patient has been refusing therapy for at least 90% of the time. We'll need to continue speech therapy until they indicate the patient no longer requires therapy Occupational therapy indicates OT at rehabilitation. Will need intensive occupational therapy evaluation until patient cleared by OT for discharge or patient's functional capacity can no longer improve Physical therapy indicating PT at rehabilitation. Will need to continue intensive physical therapy, continue right AFO. 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 Urinalysis 07/13/16 with moderate leukocyte esterase, 9-14 white blood cells, few white blood cell clumps, and 6-8 squamous epithelial cells. No nitrites. UA from 06/28 with Gardnerella vaginalis, and UA 05/10 with Escherichia coli. Urine culture 07/13 with 50-100,000 mixed gram positive manasa indicating probable contaminants as expected. Status post Flagyl 500 mg twice daily for 7 days Vaginal discharge: Resolved. Patient had white vaginal discharge and pruritus. S /p treatment with Flagyl. -Patient has had treatment with Monistat suppositories 3 days, but discharge persisted. Pelvic exam performed yesterday. Wet prep reviewed today and negative for trichomonas, BV, and yeast. Negative GC. Hypertension, blood pressure stable Norvasc 10 mg daily, Lisinopril 10 mg daily Lopressor 12.5 mg twice daily Alcohol and cocaine abuse dependence patient previously counseled. Status post thiamine Tobacco abuse Counseled on cessation Chronic hepatitis C, chronic Patient with chronic transaminitis liver ultrasound showed fatty infiltration Anxiety. Controlled Seroquel low-dose initiated on 05/27. Mood stable. DVT prophylaxis Sequential compression devices. Discharge Planning Patient has no funding for rehabilitation. music store manager is following up with [facility] regarding status of applications. Occupational therapy recommends shower bench, 3-1 bedside commode for discharge. PT recommends right AFO. Elisabeth Church Jul 17, 2016 14:05 Grecia Gunn MD Jul 18, 2016 15:36
[2016-07-17 19:51] VITALS: BP 93/62; PULSE 82; RESP 18; TEMP 98.4; O2SAT 93
[2016-07-17] MEDS: QUEtiapine FUMARATE 25 MG TAB PO SCH (20:06)
[2016-07-18 09:15] VITALS: BP 120/73; PULSE 67; RESP 20; TEMP 96.6; O2SAT 96
[2016-07-18] MEDS: GABAPENTIN 100 MG CAP PO SCH ×3 (09:48→17:31)
[2016-07-18] MEDS: RANITIDINE HCL 150 MG TAB PO SCH ×2 (09:48→21:00)
[2016-07-18] MEDS: METOPROLOL TARTRATE 25 MG TAB PO SCH ×2 (09:48→21:00)
[2016-07-18] MEDS: LISINOPRIL 5 MG TAB PO SCH (09:48)
[2016-07-18] MEDS: POTASSIUM CHLORIDE 10 MEQ CONTROLLED RELEASE TAB PO SCH (09:48)
--- NOTE | 2016-07-18 10:30 | HHI.PR ---
Subjective Remarks No acute complaints. Patient states she slept well. Objective Vitals Vital Signs Date Time Temp Pulse Resp B/P Pulse Ox O2 Delivery O2 Flow Rate FiO2 07/18/16 09:15 96.6 67 20 120/73 96 07/17/16 19:51 98.4 82 18 93/62 93 I/O 07/17/16 07/17/16 07/17/16 07/18/16 07/18/16 07/18/16 07:00 15:00 23:00 07:00 15:00 23:00 Intake Total 220 ml 1400 ml 750 ml Balance 220 ml 1400 ml 750 ml Intake Oral 220 ml 1400 ml 750 ml # Voids 3 9 1 1 # Bowel Movements 1 3 Objective Remarks GENERAL: Thin patient in no apparent distress. SKIN: Warm and dry. HEAD: Atraumatic. Normocephalic. CARDIOVASCULAR: Regular rate and rhythm. RESPIRATORY: Limited anterior exam. No accessory muscle use. Clear to auscultation. Breath sounds equal bilaterally. GASTROINTESTINAL: Abdomen soft, non-tender, nondistended. MUSCULOSKELETAL: No lower extremity edema bilaterally. Atrophied appearing legs and arms. NEUROLOGICAL: Awake and alert. Normal speech. PSYCHIATRIC: Appropriate mood and affect; insight and judgment normal. Procedures None Urinary Catheter: No Vascular Central Line Catheter: No A/P Problem List: (1) Basal ganglia hemorrhage Status: Chronic (2) Hemiparesis affecting right side as late effect of cerebrovascular accident (CVA) Status: Chronic (3) Hypertensive emergency Status: Resolved (4) Metabolic acidosis Status: Resolved (5) UTI (urinary tract infection) Status: Resolved (6) Vaginal discharge Status: Resolved Assessment and Plan Left basal ganglia bleed with 4mm MLS with dense Right hemiparesis, stable secondary to cocaine and uncontrolled hypertension Neurosurgery, Dr. Venegas has evaluated the patient. The bleed has been stable on repeat head CT. No surgery needed. Speech therapy recommended on 05/24/16 diet to be mechanical soft diet with thin liquids. Patient refused ST. ST signed off on 06/11/16. Occupational therapy indicates OT at rehabilitation. Will need intensive occupational therapy evaluation until patient cleared by OT for discharge or patient's functional capacity can no longer improve Physical therapy indicating PT at rehabilitation. Will need to continue intensive physical therapy, continue right AFO. 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 Urinalysis 9/20/16 with moderate leukocyte esterase, 9-14 white blood cells, few white blood cell clumps, and 6-8 squamous epithelial cells. No nitrites. UA from 06/28 with Gardnerella vaginalis, and UA 05/10 with Escherichia coli. Urine culture 07/13 with 50-100,000 mixed gram positive manasa indicating probable contaminants as expected. Status post Flagyl 500 mg twice daily for 7 days Vaginal discharge: Resolved. Patient had white vaginal discharge and pruritus. S /p treatment with Flagyl. -Patient has had treatment with Monistat suppositories 3 days, but discharge persisted. Pelvic exam performed yesterday. Wet prep reviewed today and negative for trichomonas, BV, and yeast. Negative GC. Hypertension, blood pressure stable Norvasc 10 mg daily, Lisinopril 10 mg daily Lopressor 12.5 mg twice daily Alcohol and cocaine abuse dependence patient previously counseled. Status post thiamine Tobacco abuse Counseled on cessation Chronic hepatitis C, chronic Patient with chronic transaminitis liver ultrasound showed fatty infiltration Anxiety. Controlled Seroquel low-dose initiated on 05/27. Mood stable. DVT prophylaxis Sequential compression devices. Discharge Planning Patient has no funding for rehabilitation. [employer] working on establishing disability. Occupational therapy recommends shower bench, 3-1 bedside commode for discharge. PT recommends right AFO. Elisabeth Church Jul 18, 2016 10:30 Grecia Gunn MD Jul 18, 2016 15:40
[2016-07-18] MEDS: ACETAMINOPHEN 325 MG TAB PO PRN (17:32)
[2016-07-18 20:00] VITALS: BP 103/69; PULSE 75; RESP 18; TEMP 98.4; O2SAT 96
[2016-07-18] MEDS: QUEtiapine FUMARATE 25 MG TAB PO SCH (21:00)
[2016-07-19 08:00] VITALS: BP 107/66; PULSE 76; RESP 16; TEMP 97; O2SAT 96
[2016-07-19] MEDS: LISINOPRIL 5 MG TAB PO SCH (09:24)
[2016-07-19] MEDS: POTASSIUM CHLORIDE 10 MEQ CONTROLLED RELEASE TAB PO SCH (09:24)
[2016-07-19] MEDS: METOPROLOL TARTRATE 25 MG TAB PO SCH ×2 (09:25→21:00)
[2016-07-19] MEDS: RANITIDINE HCL 150 MG TAB PO SCH ×2 (09:25→22:51)
--- NOTE | 2016-07-19 09:26 | HHI.PR ---
Subjective Remarks Patient states that she went to the commode earlier but did not go and now has wet the bed. No other acute complaints. Objective Vitals Vital Signs Date Time Temp Pulse Resp B/P Pulse Ox O2 Delivery O2 Flow Rate FiO2 07/19/16 08:00 97.0 76 16 107/66 96 07/18/16 20:00 98.4 75 18 103/69 96 I/O 07/18/16 07/18/16 07/18/16 07/19/16 07/19/16 07/19/16 07:00 15:00 23:00 07:00 15:00 23:00 Intake Total 1350 ml Balance 1350 ml Intake Oral 1350 ml # Voids 1 5 1 1 # Bowel Movements 1 0 Objective Remarks GENERAL: Thin patient in no apparent distress. SKIN: Warm and dry. HEAD: Atraumatic. Normocephalic. EYES: Pupils normal. ENT: MMM. CARDIOVASCULAR: Regular rate and rhythm. RESPIRATORY: Limited anterior exam. No accessory muscle use. Clear to auscultation. Breath sounds equal bilaterally. GASTROINTESTINAL: Abdomen soft, non-tender, nondistended. NEUROLOGICAL: Awake and alert. Normal speech. PSYCHIATRIC: Insight and judgment normal. Procedures None Urinary Catheter: No Vascular Central Line Catheter: No A/P Problem List: (1) Basal ganglia hemorrhage Status: Chronic (2) Hemiparesis affecting right side as late effect of cerebrovascular accident (CVA) Status: Chronic (3) Hypertensive emergency Status: Resolved (4) Metabolic acidosis Status: Resolved (5) UTI (urinary tract infection) Status: Resolved (6) Vaginal discharge Status: Resolved Assessment and Plan Left basal ganglia bleed with 4mm MLS with dense Right hemiparesis, stable secondary to cocaine and uncontrolled hypertension Neurosurgery, Dr. Venegas has evaluated the patient. The bleed has been stable on repeat head CT. No surgery needed. Speech therapy recommended on 05/24/16 diet to be mechanical soft diet with thin liquids. Patient refused ST. ST signed off on 06/11/16. Occupational therapy indicates OT at rehabilitation. Will need intensive occupational therapy evaluation until patient cleared by OT for discharge or patient's functional capacity can no longer improve Physical therapy indicating PT at rehabilitation. Will need to continue intensive physical therapy, continue right AFO. 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 Urinalysis 07/13/16 with moderate leukocyte esterase, 9-14 white blood cells, few white blood cell clumps, and 6-8 squamous epithelial cells. No nitrites. UA from 06/28 with Gardnerella vaginalis, and UA 05/10 with Escherichia coli. Urine culture 07/13 with 50-100,000 mixed gram positive manasa indicating probable contaminants as expected. Status post Flagyl 500 mg twice daily for 7 days Vaginal discharge: Resolved. Patient had white vaginal discharge and pruritus. S /p treatment with Flagyl. -Patient has had treatment with Monistat suppositories 3 days, but discharge persisted. Pelvic exam performed yesterday. Wet prep reviewed today and negative for trichomonas, BV, and yeast. Negative GC. Hypertension, blood pressure stable Norvasc 10 mg daily, Lisinopril 10 mg daily Lopressor 12.5 mg twice daily Alcohol and cocaine abuse dependence patient previously counseled. Status post thiamine Tobacco abuse Counseled on cessation Chronic hepatitis C, chronic Patient with chronic transaminitis liver ultrasound showed fatty infiltration Anxiety. Controlled Seroquel low-dose initiated on 05/27. Mood stable. DVT prophylaxis Sequential compression devices. Discharge Planning Patient has no funding for rehabilitation. [employer] working on establishing disability. Occupational therapy recommends shower bench, 3-1 bedside commode for discharge. PT recommends right AFO. Elisabeth Church Jul 19, 2016 09:25
[2016-07-19] MEDS: GABAPENTIN 100 MG CAP PO SCH ×3 (09:28→17:39)
[2016-07-19 20:00] VITALS: BP 104/65; PULSE 81; RESP 20; TEMP 98.3; O2SAT 97
[2016-07-19] MEDS: ACETAMINOPHEN 325 MG TAB PO PRN (22:50)
[2016-07-19] MEDS: QUEtiapine FUMARATE 25 MG TAB PO SCH (22:51)
[2016-07-20] MEDS: GABAPENTIN 100 MG CAP PO SCH ×3 (08:19→17:20)
[2016-07-20] MEDS: POTASSIUM CHLORIDE 10 MEQ CONTROLLED RELEASE TAB PO SCH (08:19)
[2016-07-20] MEDS: RANITIDINE HCL 150 MG TAB PO SCH ×2 (08:20→21:05)
[2016-07-20] MEDS: METOPROLOL TARTRATE 25 MG TAB PO SCH ×2 (08:20→21:04)
[2016-07-20] MEDS: LISINOPRIL 5 MG TAB PO SCH (08:20)
--- NOTE | 2016-07-20 08:51 | HHI.PR ---
Subjective Remarks Patient seen and examined today. Patient denies any new complaints. No change in clinical status. Objective Vitals Vital Signs Date Time Temp Pulse Resp B/P Pulse Ox O2 Delivery O2 Flow Rate FiO2 07/19/16 20:00 98.3 81 20 104/65 97 I/O 07/19/16 07/19/16 07/19/16 07/20/16 07/20/16 07/20/16 07:00 15:00 23:00 07:00 15:00 23:00 Intake Total 850 ml 0 ml 240 ml Balance 850 ml 0 ml 240 ml Intake Oral 850 ml 240 ml IV Total 0 ml 0 ml # Voids 1 3 # Bowel Movements 0 Objective Remarks GENERAL: Well-developed, well-nourished, in no acute distress. alert and orientated HEENT: Head is normocephalic without any lesions or masses noted right facial droop. NECK: Supple without any masses. Trachea midline no deviation. CARDIAC: Regular rhythm, regular rate. S1/S2 are heard. No murmurs gallops or rubs. LUNGS: Clear to auscultation bilaterally. No wheeze, rhonchi or rales. No use of accessory muscles on inspiration or expiration. ABDOMEN: Soft, nontender. Nondistended. Bowel sounds heard in all 4 quadrants. No organomegaly or masses. Negative rebound, negative guarding EXTREMITIES: No edema, pulses are equal bilaterally. No cyanosis or clubbing NEUROLOGY: Mood and affect appear appropriate. Dense right hemiparesis which appears to be improving in the lower extremity. Patient is able lift her right leg off the bed. However she is not able to move her foot, wiggle her toes. Her right upper extremity is still flaccid. 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 Venegas has evaluated the patient. The bleed has been stable on repeat head CT. No surgery needed. Speech therapy has been following the patient and last documented diet recommendation was 05/24/16 to indicate mechanical soft diet with thin liquids. As per continue speech therapy it would appear as if the patient has been refusing therapy for at least 90% of the time. We'll need to continue speech therapy until they indicate the patient no longer requires therapy Occupational therapy indicates OT at rehabilitation. Will need intensive occupational therapy evaluation until patient cleared by OT for discharge or patient's functional capacity can no longer improve Physical therapy indicating PT at rehabilitation. We'll need to continue intensive physical therapy, continue right AFO, Right arm pain, controlled Continue Neurontin for right arm neuropathic pain Dysuria, resolved Urinalysis indicates small amount leukocyte esterase, WBCs 1519, squamous epithelial cells 0-5, possible contamination, Urine culture shows contamination with Gardnerella vaginalis Status post Flagyl 500 mg twice daily for 7 days Hypertension, systolic blood pressure ranging 56150 Norvasc 10 mg daily, discontinue lisinopril 5 mg daily, Lopressor 12.5 mg twice daily Alcohol and cocaine abuse dependence patient previously counseled. Status post thiamine Tobacco abuse Counseled on cessation Chronic hepatitis C, chronic Patient with chronic transaminitis liver ultrasound showed fatty infiltration Anxiety. Controlled Seroquel low-dose initiated on 05/27. Mood seems OK. DVT prophylaxis Sequential compression devices. Discharge Planning Patient has no funding for rehabilitation. mass spectrometry manager is following up with [facility] regarding status of applications. Occupational therapy recommends shower bench, 3-1 bedside commode for discharge. PT recommends right AFO. Jaycob Rebolledo Jul 20, 2016 08:51
[2016-07-20 09:56] VITALS: BP 116/77; PULSE 67; RESP 18; TEMP 96.6; O2SAT 97
[2016-07-20 20:00] VITALS: BP 105/70; PULSE 77; RESP 20; TEMP 96.6; O2SAT 96
[2016-07-20] MEDS: QUEtiapine FUMARATE 25 MG TAB PO SCH (21:04)
[2016-07-21] MEDS: GABAPENTIN 100 MG CAP PO SCH ×3 (08:25→17:05)
[2016-07-21] MEDS: RANITIDINE HCL 150 MG TAB PO SCH ×2 (08:25→21:19)
[2016-07-21] MEDS: POTASSIUM CHLORIDE 10 MEQ CONTROLLED RELEASE TAB PO SCH (08:25)
[2016-07-21] MEDS: METOPROLOL TARTRATE 25 MG TAB PO SCH (08:25)
--- NOTE | 2016-07-21 09:22 | HHI.PR ---
Subjective Remarks Patient seen and examined today. Patient denies any new complaints. No change in clinical status. Objective Vitals Vital Signs Date Time Temp Pulse Resp B/P Pulse Ox O2 Delivery O2 Flow Rate FiO2 07/20/16 20:00 96.6 77 20 105/70 96 07/20/16 09:56 96.6 67 18 116/77 97 I/O 07/20/16 07/20/16 07/20/16 07/21/16 07/21/16 07/21/16 07:00 15:00 23:00 07:00 15:00 23:00 Intake Total 240 ml 1480 ml Balance 240 ml 1480 ml Intake Oral 240 ml 1480 ml IV Total 0 ml # Voids 6 1 # Bowel Movements 1 Objective Remarks GENERAL: Well-developed, well-nourished, in no acute distress. alert and orientated HEENT: Head is normocephalic without any lesions or masses noted right facial droop. NECK: Supple without any masses. Trachea midline no deviation. CARDIAC: Regular rhythm, regular rate. S1/S2 are heard. No murmurs gallops or rubs. LUNGS: Clear to auscultation bilaterally. No wheeze, rhonchi or rales. No use of accessory muscles on inspiration or expiration. ABDOMEN: Soft, nontender. Nondistended. Bowel sounds heard in all 4 quadrants. No organomegaly or masses. Negative rebound, negative guarding EXTREMITIES: No edema, pulses are equal bilaterally. No cyanosis or clubbing NEUROLOGY: Mood and affect appear appropriate. Dense right hemiparesis which appears to be improving in the lower extremity. Patient is able lift her right leg off the bed. However she is not able to move her foot, wiggle her toes. Her right upper extremity is still flaccid. 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 Venegas has evaluated the patient. The bleed has been stable on repeat head CT. No surgery needed. Speech therapy has been following the patient and last documented diet recommendation was 05/24/16 to indicate mechanical soft diet with thin liquids. As per continue speech therapy it would appear as if the patient has been refusing therapy for at least 90% of the time. We'll need to continue speech therapy until they indicate the patient no longer requires therapy Occupational therapy indicates OT at rehabilitation. Will need intensive occupational therapy evaluation until patient cleared by OT for discharge or patient's functional capacity can no longer improve Physical therapy indicating PT at rehabilitation. We'll need to continue intensive physical therapy, continue right AFO, Right arm pain, controlled Continue Neurontin for right arm neuropathic pain Dysuria, resolved Urinalysis indicates small amount leukocyte esterase, WBCs 1519, squamous epithelial cells 0-5, possible contamination, Urine culture shows contamination with Gardnerella vaginalis Status post Flagyl 500 mg twice daily for 7 days Hypertension, systolic blood pressure ranging [id number] Norvasc 10 mg daily, Discontinue Lopressor 12.5 mg twice daily Alcohol and cocaine abuse dependence patient previously counseled. Status post thiamine Tobacco abuse Counseled on cessation Chronic hepatitis C, chronic Patient with chronic transaminitis liver ultrasound showed fatty infiltration Anxiety. Controlled Seroquel low-dose initiated on 05/27. Mood seems OK. DVT prophylaxis Sequential compression devices. Discharge Planning Patient has no funding for rehabilitation. manager account management is following up with [facility] regarding status of applications. Occupational therapy recommends shower bench, 3-1 bedside commode for discharge. PT recommends right AFO. Jaycob Rebolledo Jul 21, 2016 09:22 Grecia Gunn MD Jul 21, 2016 14:36
[2016-07-21 10:00] VITALS: BP 125/81; PULSE 67; RESP 14; TEMP 96.7; O2SAT 97
[2016-07-21 20:00] VITALS: BP 121/78; PULSE 80; RESP 15; TEMP 98.2; O2SAT 97
[2016-07-21] MEDS: QUEtiapine FUMARATE 25 MG TAB PO SCH (21:19)
[2016-07-21] MEDS: ALUMINUM/MAGNESIUM/SIMETH 30 ML CUP PO PRN (21:24)
[2016-07-21] MEDS: ACETAMINOPHEN 325 MG TAB PO PRN (21:25)
[2016-07-22] MEDS: POTASSIUM CHLORIDE 10 MEQ CONTROLLED RELEASE TAB PO SCH (09:11)
[2016-07-22] MEDS: GABAPENTIN 100 MG CAP PO SCH ×3 (09:11→16:56)
[2016-07-22] MEDS: RANITIDINE HCL 150 MG TAB PO SCH ×2 (09:11→20:51)
--- NOTE | 2016-07-22 10:20 | HHI.PR ---
Subjective Remarks Patient seen and examined today. Patient denies any new complaints. No change in clinical status. Objective Vitals Vital Signs Date Time Temp Pulse Resp B/P Pulse Ox O2 Delivery O2 Flow Rate FiO2 07/21/16 20:00 98.2 80 15 121/78 97 I/O 07/21/16 07/21/16 07/21/16 07/22/16 07/22/16 07/22/16 07:00 15:00 23:00 07:00 15:00 23:00 Intake Total 1500 ml 100 ml Balance 1500 ml 100 ml Intake Oral 1500 ml 100 ml # Voids 1 10 4 # Bowel Movements 1 Objective Remarks GENERAL: Well-developed, well-nourished, in no acute distress. alert and orientated HEENT: Head is normocephalic without any lesions or masses noted right facial droop. NECK: Supple without any masses. Trachea midline no deviation. CARDIAC: Regular rhythm, regular rate. S1/S2 are heard. No murmurs gallops or rubs. LUNGS: Clear to auscultation bilaterally. No wheeze, rhonchi or rales. No use of accessory muscles on inspiration or expiration. ABDOMEN: Soft, nontender. Nondistended. Bowel sounds heard in all 4 quadrants. No organomegaly or masses. Negative rebound, negative guarding EXTREMITIES: No edema, pulses are equal bilaterally. No cyanosis or clubbing NEUROLOGY: Mood and affect appear appropriate. Dense right hemiparesis which appears to be improving in the lower extremity. Patient is able lift her right leg off the bed. However she is not able to move her foot, wiggle her toes. Her right upper extremity is still flaccid. 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 Venegas has evaluated the patient. The bleed has been stable on repeat head CT. No surgery needed. Speech therapy has been following the patient and last documented diet recommendation was 05/24/16 to indicate mechanical soft diet with thin liquids. As per continue speech therapy it would appear as if the patient has been refusing therapy for at least 90% of the time. We'll need to continue speech therapy until they indicate the patient no longer requires therapy Occupational therapy indicates OT at rehabilitation. Will need intensive occupational therapy evaluation until patient cleared by OT for discharge or patient's functional capacity can no longer improve Physical therapy indicating PT at rehabilitation. 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 Status post thiamine Tobacco abuse Counseled on cessation Chronic hepatitis C, chronic Patient with chronic transaminitis liver ultrasound showed fatty infiltration Anxiety. Controlled Seroquel low-dose initiated on 05/27. Mood seems OK. DVT prophylaxis Sequential compression devices. Discharge Planning Patient has no funding for rehabilitation. manager dairy is following up with [facility] regarding status of applications. Occupational therapy recommends shower bench, 3-1 bedside commode for discharge. PT recommends right AFO. Attending Statement patient was seen and examined. has some pain to the right arm and right leg. otherwise no other new complaints. assessment and plan as noted above. Jaycob Rebolledo Jul 22, 2016 10:20 Myron Aragon MD Jul 22, 2016 12:06
[2016-07-22 12:00] VITALS: BP 134/88; PULSE 78; RESP 20; TEMP 95.9; O2SAT 96
[2016-07-22 13:46] LABS: GLUCOSE,URINE NEG (NEG); KETONE, URINE NEG (NEG); NITRITE,URINE NEG (NEG)
[2016-07-22 13:49] LABS: BLOOD, URINE MOD (NEG); METHOD OF COLLECTION CLEAN CATCH; URINE COLOR YELLOW (YELLW/STRAW)
[2016-07-22 13:50] LABS: BACTERIA, URINE MANY /hpf
[2016-07-22 13:51] LABS: COMMENT (UR) CULTURE INDICATED; CULTURE IF INDICATED CULTURE INDICATED; SQUAMOUS EPITHELIAL CELL URINE 0-5 /hpf (0-5)
[2016-07-22 20:00] VITALS: BP 119/80; PULSE 89; RESP 18; TEMP 97.7; O2SAT 96
[2016-07-22] MEDS: QUEtiapine FUMARATE 25 MG TAB PO SCH (20:51)
--- NOTE | 2016-07-23 07:53 | HHI.PR ---
Subjective Remarks Patient seen and examined today. Patient denies any new complaints. No change in clinical status. Objective Vitals Vital Signs Date Time Temp Pulse Resp B/P Pulse Ox O2 Delivery O2 Flow Rate FiO2 07/22/16 20:00 97.7 89 18 119/80 96 07/22/16 12:00 95.9 78 20 134/88 96 I/O 07/22/16 07/22/16 07/22/16 07/23/16 07/23/16 07/23/16 07:00 15:00 23:00 07:00 15:00 23:00 Intake Total 100 ml 700 ml Balance 100 ml 700 ml Intake Oral 100 ml 700 ml # Voids 4 7 1 2 # Bowel Movements 1 Objective Remarks GENERAL: Well-developed, well-nourished, in no acute distress. alert and orientated HEENT: Head is normocephalic without any lesions or masses noted right facial droop. NECK: Supple without any masses. Trachea midline no deviation. CARDIAC: Regular rhythm, regular rate. S1/S2 are heard. No murmurs gallops or rubs. LUNGS: Clear to auscultation bilaterally. No wheeze, rhonchi or rales. No use of accessory muscles on inspiration or expiration. ABDOMEN: Soft, nontender. Nondistended. Bowel sounds heard in all 4 quadrants. No organomegaly or masses. Negative rebound, negative guarding EXTREMITIES: No edema, pulses are equal bilaterally. No cyanosis or clubbing NEUROLOGY: Mood and affect appear appropriate. Dense right hemiparesis which appears to be improving in the lower extremity. Patient is able lift her right leg off the bed. However she is not able to move her foot, wiggle her toes. Her right upper extremity is still flaccid. Patient started getting contractures of the right lower extremity. 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 Venegas has evaluated the patient. The bleed has been stable on repeat head CT. No surgery needed. Speech therapy has been following the patient and last documented diet recommendation was 05/24/16 to indicate mechanical soft diet with thin liquids. As per continue speech therapy it would appear as if the patient has been refusing therapy for at least 90% of the time. We'll need to continue speech therapy until they indicate the patient no longer requires therapy Occupational therapy indicates OT at rehabilitation. Will need intensive occupational therapy evaluation until patient cleared by OT for discharge or patient's functional capacity can no longer improve Physical therapy indicating PT at rehabilitation. We'll need to continue intensive physical therapy, continue right AFO, Right arm pain, controlled Continue Neurontin for right arm neuropathic pain Dysuria, resolved Urinalysis indicates small amount leukocyte esterase, WBCs 1519, squamous epithelial cells 0-5, possible contamination, Urine culture shows contamination with Gardnerella vaginalis Status post Flagyl 500 mg twice daily for 7 days Hypertension, systolic blood pressure ranging 119-134 Norvasc 10 mg daily, Alcohol and cocaine abuse dependence patient previously counseled. Status post thiamine Tobacco abuse Counseled on cessation Chronic hepatitis C, chronic Patient with chronic transaminitis liver ultrasound showed fatty infiltration Anxiety. Controlled Seroquel low-dose initiated on 05/27. Mood seems OK. DVT prophylaxis Sequential compression devices. Discharge Planning Patient has no funding for rehabilitation. clinical manager is following up with [facility] regarding status of applications. Occupational therapy recommends shower bench, 3-1 bedside commode for discharge. PT recommends right AFO. Attending Statement in no distress. no new complaints. continue current care. Jaycob Rebolledo Jul 23, 2016 07:53 Myron Aragon MD Jul 23, 2016 12:06
[2016-07-23 08:44] VITALS: BP 177/92; PULSE 88; RESP 15; TEMP 97.7; O2SAT 99
[2016-07-23] MEDS: POTASSIUM CHLORIDE 10 MEQ CONTROLLED RELEASE TAB PO SCH (09:45)
[2016-07-23] MEDS: GABAPENTIN 100 MG CAP PO SCH ×3 (09:45→17:30)
[2016-07-23] MEDS: RANITIDINE HCL 150 MG TAB PO SCH ×2 (09:45→21:14)
[2016-07-23 20:32] VITALS: BP 118/81; PULSE 87; RESP 18; TEMP 97.8; O2SAT 98
[2016-07-23] MEDS: QUEtiapine FUMARATE 25 MG TAB PO SCH (21:14)
--- NOTE | 2016-07-24 07:50 | HHI.PR ---
Subjective Remarks Patient seen and examined today. Patient denies any new complaints. No change in clinical status. Objective Vitals Vital Signs Date Time Temp Pulse Resp B/P Pulse Ox O2 Delivery O2 Flow Rate FiO2 07/23/16 20:32 97.8 87 18 118/81 98 07/23/16 08:44 97.7 88 15 177/92 99 I/O 07/23/16 07/23/16 07/23/16 07/24/16 07/24/16 07/24/16 07:00 15:00 23:00 07:00 15:00 23:00 Intake Total 800 ml 1550 ml Balance 800 ml 1550 ml Intake Oral 800 ml 1550 ml # Voids 2 8 # Bowel Movements 3 Objective Remarks GENERAL: Well-developed, well-nourished, in no acute distress. alert and orientated HEENT: Head is normocephalic without any lesions or masses noted right facial droop. NECK: Supple without any masses. Trachea midline no deviation. CARDIAC: Regular rhythm, regular rate. S1/S2 are heard. No murmurs gallops or rubs. LUNGS: Clear to auscultation bilaterally. No wheeze, rhonchi or rales. No use of accessory muscles on inspiration or expiration. ABDOMEN: Soft, nontender. Nondistended. Bowel sounds heard in all 4 quadrants. No organomegaly or masses. Negative rebound, negative guarding EXTREMITIES: No edema, pulses are equal bilaterally. No cyanosis or clubbing NEUROLOGY: Mood and affect appear appropriate. Dense right hemiparesis which appears to be improving in the lower extremity. Patient is able lift her right leg off the bed. However she is not able to move her foot, wiggle her toes. Her right upper extremity is still flaccid. Patient started getting contractures of the right lower extremity. 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 Venegas has evaluated the patient. The bleed has been stable on repeat head CT. No surgery needed. Speech therapy has been following the patient and last documented diet recommendation was 05/24/16 to indicate mechanical soft diet with thin liquids. As per continue speech therapy it would appear as if the patient has been refusing therapy for at least 90% of the time. We'll need to continue speech therapy until they indicate the patient no longer requires therapy Occupational therapy indicates OT at rehabilitation. Will need intensive occupational therapy evaluation until patient cleared by OT for discharge or patient's functional capacity can no longer improve Physical therapy indicating PT at rehabilitation. We'll need to continue intensive physical therapy, continue right AFO, Right arm pain, controlled Continue Neurontin for right arm neuropathic pain Dysuria, resolved Urinalysis indicates small amount leukocyte esterase, WBCs 1519, squamous epithelial cells 0-5, possible contamination, Urine culture shows contamination with Gardnerella vaginalis Status post Flagyl 500 mg twice daily for 7 days Hypertension, Norvasc 10 mg daily, Alcohol and cocaine abuse dependence patient previously counseled. Status post thiamine Tobacco abuse Counseled on cessation Chronic hepatitis C, chronic Patient with chronic transaminitis liver ultrasound showed fatty infiltration Anxiety. Controlled Seroquel low-dose initiated on 05/27. DVT prophylaxis Sequential compression devices. Discharge Planning Patient has no funding for rehabilitation. 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 Occupational therapy recommends shower bench, 3-1 bedside commode for discharge. PT recommends right AFO. Attending Statement no new complaints. no change clinically. continue current care. Jaycob Rebolledo Jul 24, 2016 07:50 Myron Aragon MD Jul 24, 2016 11:42
[2016-07-24 08:00] VITALS: BP 110/69; PULSE 75; RESP 16; TEMP 97.7; O2SAT 96
[2016-07-24] MEDS: GABAPENTIN 100 MG CAP PO SCH ×3 (08:54→17:16)
[2016-07-24] MEDS: RANITIDINE HCL 150 MG TAB PO SCH ×2 (08:54→20:29)
[2016-07-24] MEDS: POTASSIUM CHLORIDE 10 MEQ CONTROLLED RELEASE TAB PO SCH (08:54)
[2016-07-24 20:00] VITALS: BP 138/81; PULSE 87; RESP 18; TEMP 98.1; O2SAT 96
[2016-07-24] MEDS: QUEtiapine FUMARATE 25 MG TAB PO SCH (20:29)
--- NOTE | 2016-07-25 07:43 | HHI.PR ---
Subjective Remarks Patient seen and examined today. Patient states that she has had frequent urination. She does have history of recurrent UTIs. Will obtain urine sample Objective Vitals Vital Signs Date Time Temp Pulse Resp B/P Pulse Ox O2 Delivery O2 Flow Rate FiO2 07/24/16 20:00 98.1 87 18 138/81 96 07/24/16 08:00 97.7 75 16 110/69 96 I/O 07/24/16 07/24/16 07/24/16 07/25/16 07/25/16 07/25/16 07:00 15:00 23:00 07:00 15:00 23:00 Intake Total 750 ml Output Total 1 ml Balance 750 ml -1 ml Intake Oral 750 ml IV Total 0 ml Output Urine Total 1 ml # Voids 5 3 10 2 # Bowel Movements 0 0 Objective Remarks GENERAL: Well-developed, well-nourished, in no acute distress. alert and orientated HEENT: Head is normocephalic without any lesions or masses noted right facial droop. NECK: Supple without any masses. Trachea midline no deviation. CARDIAC: Regular rhythm, regular rate. S1/S2 are heard. No murmurs gallops or rubs. LUNGS: Clear to auscultation bilaterally. No wheeze, rhonchi or rales. No use of accessory muscles on inspiration or expiration. ABDOMEN: Soft, nontender. Nondistended. Bowel sounds heard in all 4 quadrants. No organomegaly or masses. Negative rebound, negative guarding EXTREMITIES: No edema, pulses are equal bilaterally. No cyanosis or clubbing NEUROLOGY: Mood and affect appear appropriate. Dense right hemiparesis which appears to be improving in the lower extremity. Patient is able lift her right leg off the bed. However she is not able to move her foot, wiggle her toes. Her right upper extremity is still flaccid. Patient started getting contractures of the right lower extremity. 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 Venegas has evaluated the patient. The bleed has been stable on repeat head CT. No surgery needed. Speech therapy has been following the patient and last documented diet recommendation was 05/24/16 to indicate mechanical soft diet with thin liquids. As per continue speech therapy it would appear as if the patient has been refusing therapy for at least 90% of the time. We'll need to continue speech therapy until they indicate the patient no longer requires therapy Occupational therapy indicates OT at rehabilitation. Will need intensive occupational therapy evaluation until patient cleared by OT for discharge or patient's functional capacity can no longer improve Physical therapy indicating PT at rehabilitation. 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 Status post thiamine Tobacco abuse Counseled on cessation Chronic hepatitis C, chronic Patient with chronic transaminitis liver ultrasound showed fatty infiltration Anxiety. Controlled Seroquel low-dose initiated on 05/27. DVT prophylaxis Sequential compression devices. Discharge Planning Patient has no funding for rehabilitation. 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 Occupational therapy recommends shower bench, 3-1 bedside commode for discharge. PT recommends right AFO. Attending Statement resting comfortably with no distress. complaining of urinary frequency. check UA. continue current care. Jaycob Rebolledo Jul 25, 2016 07:43 Myron Aragon MD Jul 25, 2016 10:12
[2016-07-25 08:29] LABS: POTASSIUM 4.1 MEQ/L (3.5-5.1)
[2016-07-25 08:33] LABS: BICARBONATE 25.7 MEQ/L (21.0-32.0)
[2016-07-25] MEDS: POTASSIUM CHLORIDE 10 MEQ CONTROLLED RELEASE TAB PO SCH (09:56)
[2016-07-25] MEDS: GABAPENTIN 100 MG CAP PO SCH ×3 (09:56→18:02)
[2016-07-25] MEDS: RANITIDINE HCL 150 MG TAB PO SCH ×2 (09:56→20:37)
[2016-07-25] MEDS: ACETAMINOPHEN 325 MG TAB PO PRN ×2 (14:22→20:40)
[2016-07-25 17:14] LABS: BLOOD, URINE NEG (NEG); GLUCOSE,URINE NEG (NEG); KETONE, URINE NEG (NEG); NITRITE,URINE NEG (NEG)
[2016-07-25 17:15] LABS: METHOD OF COLLECTION CLEAN CATCH; URINE COLOR YELLOW (YELLW/STRAW)
[2016-07-25 17:24] LABS: COMMENT (UR) CULT NOT INDICATED; COMMENT2 (UR) MUCOUS PRESENT; CULTURE IF INDICATED CULT NOT INDICATED
[2016-07-25 20:29] VITALS: BP 124/76; PULSE 82; RESP 20; TEMP 98; O2SAT 98
[2016-07-25] MEDS: QUEtiapine FUMARATE 25 MG TAB PO SCH (20:37)
--- NOTE | 2016-07-26 07:24 | HHI.PR ---
Subjective Remarks Patient seen and examined today. Patient denies any new complaints. Did have a workup yesterday for polyuria. Patient does not have any indication of central DI or urinary tract infection. This was discussed with the patient. Her urine frequency has improved Objective Vitals Vital Signs Date Time Temp Pulse Resp B/P Pulse Ox O2 Delivery O2 Flow Rate FiO2 07/25/16 20:29 98.0 82 20 124/76 98 I/O 07/25/16 07/25/16 07/25/16 07/26/16 07/26/16 07/26/16 07:00 15:00 23:00 07:00 15:00 23:00 Intake Total 240 ml Balance 240 ml Intake Oral 240 ml IV Total 0 ml # Voids 10 3 1 4 # Bowel Movements 0 Result Diagram: 07/25/16 0800 Objective Remarks GENERAL: Well-developed, well-nourished, in no acute distress. alert and orientated HEENT: Head is normocephalic without any lesions or masses noted right facial droop. NECK: Supple without any masses. Trachea midline no deviation. CARDIAC: Regular rhythm, regular rate. S1/S2 are heard. No murmurs gallops or rubs. LUNGS: Clear to auscultation bilaterally. No wheeze, rhonchi or rales. No use of accessory muscles on inspiration or expiration. ABDOMEN: Soft, nontender. Nondistended. Bowel sounds heard in all 4 quadrants. No organomegaly or masses. Negative rebound, negative guarding EXTREMITIES: No edema, pulses are equal bilaterally. No cyanosis or clubbing NEUROLOGY: Mood and affect appear appropriate. Dense right hemiparesis which appears to be improving in the lower extremity. Patient is able lift her right leg off the bed. However she is not able to move her foot, wiggle her toes. Her right upper extremity is still flaccid. Patient started getting contractures of the right lower extremity. 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 Venegas has evaluated the patient. The bleed has been stable on repeat head CT. No surgery needed. Speech therapy has been following the patient and last documented diet recommendation was 05/24/16 to indicate mechanical soft diet with thin liquids. As per continue speech therapy it would appear as if the patient has been refusing therapy for at least 90% of the time. We'll need to continue speech therapy until they indicate the patient no longer requires therapy Occupational therapy indicates OT at rehabilitation. Will need intensive occupational therapy evaluation until patient cleared by OT for discharge or patient's functional capacity can no longer improve Physical therapy indicating PT at rehabilitation. We'll need to continue intensive physical therapy, continue right AFO, Right arm pain, controlled Continue Neurontin for right arm neuropathic pain Dysuria, urinary frequency has improved BNP was performed, sodium level was normal. No signs of central DI Urinalysis was performed which did not indicate any signs of infection Hypertension, Norvasc 10 mg daily, Alcohol and cocaine abuse dependence patient previously counseled. Status post thiamine Tobacco abuse Counseled on cessation Chronic hepatitis C, chronic Patient with chronic transaminitis liver ultrasound showed fatty infiltration Anxiety. Controlled Seroquel low-dose initiated on 05/27. DVT prophylaxis Sequential compression devices. Discharge Planning Patient has no funding for rehabilitation. 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 regarding status of applications. Occupational therapy recommends shower bench, 3-1 bedside commode for discharge. PT recommends right AFO. Jaycob Rebolledo Jul 26, 2016 07:24
[2016-07-26 08:00] VITALS: BP 123/71; PULSE 71; RESP 16; TEMP 97.4; O2SAT 97
[2016-07-26] MEDS: RANITIDINE HCL 150 MG TAB PO SCH ×2 (08:39→20:34)
[2016-07-26] MEDS: POTASSIUM CHLORIDE 10 MEQ CONTROLLED RELEASE TAB PO SCH (08:40)
[2016-07-26] MEDS: GABAPENTIN 100 MG CAP PO SCH ×3 (08:40→16:10)
[2016-07-26 20:00] VITALS: BP 128/78; PULSE 82; RESP 16; TEMP 97.8; O2SAT 97
[2016-07-26] MEDS: ACETAMINOPHEN 325 MG TAB PO PRN (20:34)
[2016-07-26] MEDS: QUEtiapine FUMARATE 25 MG TAB PO SCH (20:34)
[2016-07-27 07:46] VITALS: BP_DIAS 7
[2016-07-27 08:00] VITALS: BP 147/78; PULSE 74; RESP 18; TEMP 97.2; O2SAT 99
[2016-07-27] MEDS: RANITIDINE HCL 150 MG TAB PO SCH ×2 (08:22→20:11)
[2016-07-27] MEDS: GABAPENTIN 100 MG CAP PO SCH ×3 (08:22→18:02)
[2016-07-27] MEDS: POTASSIUM CHLORIDE 10 MEQ CONTROLLED RELEASE TAB PO SCH (08:22)
--- NOTE | 2016-07-27 09:16 | HHI.PR ---
Subjective Remarks Patient admits to feeling better but still complains of increased urinary frequency. She complained of this 2 days ago and a new urinalysis was performed and was negative. The patient denies any burning with urination. She denies any polydipsia or polyphagia. She states her stomach hurts sometimes but denies any current abdominal pain. Denies any vomiting or diarrhea. Objective Vitals Vital Signs Date Time Temp Pulse Resp B/P Pulse Ox O2 Delivery O2 Flow Rate FiO2 07/27/16 08:00 97.2 74 18 147/78 99 07/27/16 07:46 /7 07/26/16 20:00 97.8 82 16 128/78 97 I/O 07/26/16 07/26/16 07/26/16 07/27/16 07/27/16 07/27/16 07:00 15:00 23:00 07:00 15:00 23:00 Intake Total 725 ml 360 ml 360 ml Output Total 400 ml 400 ml Balance 725 ml -40 ml -40 ml Intake Oral 725 ml 360 ml 360 ml IV Total 0 ml 0 ml Output Urine Total 400 ml 400 ml # Voids 4 5 2 2 # Bowel Movements 1 Result Diagram: 07/25/16 0800 Objective Remarks GENERAL: Thin patient in no apparent distress. SKIN: Warm and dry. HEAD: Atraumatic. Normocephalic. CARDIOVASCULAR: Regular rate and rhythm. RESPIRATORY: Limited anterior exam. No accessory muscle use. Clear to auscultation. Breath sounds equal bilaterally. GASTROINTESTINAL: Abdomen soft, non-tender, nondistended. NEUROLOGICAL: Awake and alert. Normal speech. PSYCHIATRIC: Insight and judgment normal. 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 Venegas has evaluated the patient. The bleed has been stable on repeat head CT. No surgery needed. Speech therapy has been following the patient and last documented diet recommendation was 05/24/16 to indicate mechanical soft diet with thin liquids. As per continue speech therapy it would appear as if the patient has been refusing therapy for at least 90% of the time. We'll need to continue speech therapy until they indicate the patient no longer requires therapy Occupational therapy indicates OT at rehabilitation. Will need intensive occupational therapy evaluation until patient cleared by OT for discharge or patient's functional capacity can no longer improve Physical therapy indicating PT at rehabilitation. We'll need to continue intensive physical therapy, continue right AFO, Right arm pain, controlled Continue Neurontin for right arm neuropathic pain Increased urinary frequency: recurrent BNP was performed on 07/25, sodium level was normal. No signs of central DI Urinalysis was again performed on 07/25 which did not indicate any signs of infection Hypertension: BP 147/78 this morning. Norvasc 10 mg daily Continue to monitor Alcohol and cocaine abuse dependence patient previously counseled. Status post thiamine Tobacco abuse Counseled on cessation Chronic hepatitis C, chronic Patient with chronic transaminitis liver ultrasound showed fatty infiltration Anxiety. Controlled Seroquel low-dose initiated on 05/27. DVT prophylaxis Sequential compression devices. Discharge Planning Patient has no funding for rehabilitation. Denied SSI. Disability and Medicaid are pending. Occupational therapy recommends shower bench, 3-1 bedside commode for discharge. PT recommends right AFO. Attending Statement no clinical change. continue current care. Elisabeth Church Jul 27, 2016 09:16 Myron Aragon MD Jul 27, 2016 11:44
[2016-07-27 20:00] VITALS: BP 128/92; PULSE 98; RESP 18; TEMP 97.1; O2SAT 100
[2016-07-27] MEDS: QUEtiapine FUMARATE 25 MG TAB PO SCH (20:12)
[2016-07-28] MEDS ORDERED: cloNIDine HCL 0.1 MG TAB PO PRN (05:45)
[2016-07-28] MEDS ORDERED: ENALAPRILAT 1.25 MG/ML VIAL IV PRN (05:45)
[2016-07-28 08:00] VITALS: BP 136/85; PULSE 77; RESP 16; TEMP 98; O2SAT 98
[2016-07-28] MEDS: RANITIDINE HCL 150 MG TAB PO SCH ×2 (08:14→20:12)
[2016-07-28] MEDS: GABAPENTIN 100 MG CAP PO SCH ×3 (08:14→16:53)
[2016-07-28] MEDS: POTASSIUM CHLORIDE 10 MEQ CONTROLLED RELEASE TAB PO SCH (08:14)
--- NOTE | 2016-07-28 09:11 | HHI.PR ---
Subjective Remarks Patient continues to complain of increased urinary frequency, but DI and UTI have been ruled out. She denies any bladder spasm or decreased output when she goes. Objective Vitals Vital Signs Date Time Temp Pulse Resp B/P Pulse Ox O2 Delivery O2 Flow Rate FiO2 07/27/16 20:00 97.1 98 18 128/92 100 I/O 07/27/16 07/27/16 07/27/16 07/28/16 07/28/16 07/28/16 06:59 14:59 22:59 06:59 14:59 22:59 Intake Total 360 ml 875 ml 520 ml 720 ml Output Total 400 ml 1025 ml Balance -40 ml -150 ml 520 ml 720 ml Intake Oral 360 ml 875 ml 520 ml 720 ml IV Total 0 ml Output Urine Total 400 ml 1025 ml # Voids 2 4 4 # Bowel Movements 1 1 Result Diagram: 07/25/16 0800 Objective Remarks GENERAL: Thin patient in no apparent distress. SKIN: Warm and dry. HEAD: Atraumatic. Normocephalic. CARDIOVASCULAR: Regular rate and rhythm. RESPIRATORY: Limited anterior exam. No accessory muscle use. Clear to auscultation. Breath sounds equal bilaterally. GASTROINTESTINAL: Normoactive bowel sounds. Abdomen soft, non-tender, nondistended. No suprapubic tenderness. MUSCULOSKELETAL: Intact right distal radial pulse. NEUROLOGICAL: Awake and alert. Immobile R arm. Normal speech. PSYCHIATRIC: Insight and judgment normal. 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 Venegas has evaluated the patient. The bleed has been stable on repeat head CT. No surgery needed. Speech therapy has been following the patient and last documented diet recommendation was 05/24/16 to indicate mechanical soft diet with thin liquids. As per continue speech therapy it would appear as if the patient has been refusing therapy for at least 90% of the time. We'll need to continue speech therapy until they indicate the patient no longer requires therapy Occupational therapy indicates OT at rehabilitation. Will need intensive occupational therapy evaluation until patient cleared by OT for discharge or patient's functional capacity can no longer improve Physical therapy indicating PT at rehabilitation. We'll need to continue intensive physical therapy, continue right AFO. Right arm pain, controlled Continue Neurontin for right arm neuropathic pain Increased urinary frequency: recurrent. BNP was performed on 07/25, sodium level was normal. No signs of central DI. Urinalysis was again performed on 07/25 which did not indicate any signs of infection Patient has had increased urinary voids; will strictly monitor intake and output; consider starting medication for overactive bladder; may need to consider urology consult. Hypertension: Most recent BP 128/92 this morning. Norvasc 10 mg daily Continue to monitor Alcohol and cocaine abuse dependence patient previously counseled. Status post thiamine Tobacco abuse Counseled on cessation Chronic hepatitis C, chronic Patient with chronic transaminitis liver ultrasound showed fatty infiltration Anxiety. Controlled Seroquel low-dose initiated on 05/27. DVT prophylaxis Sequential compression devices. Discharge Planning Patient has no funding for rehabilitation. Denied SSI. Disability and Medicaid are pending. Occupational therapy recommends shower bench, 3-1 bedside commode for discharge. PT recommends right AFO. Elisabeth Church Jul 28, 2016 09:11 Walter Gamboa MD Jul 28, 2016 18:45
[2016-07-28 20:00] VITALS: BP 145/90; PULSE 95; RESP 18; TEMP 99.2; O2SAT 100
[2016-07-28] MEDS: QUEtiapine FUMARATE 25 MG TAB PO SCH (20:12)
[2016-07-28] MEDS: ACETAMINOPHEN 325 MG TAB PO PRN (20:14)
[2016-07-29 08:00] VITALS: BP 136/83; PULSE 73; RESP 20; TEMP 96.9; O2SAT 98
[2016-07-29] MEDS: POTASSIUM CHLORIDE 10 MEQ CONTROLLED RELEASE TAB PO SCH (08:11)
[2016-07-29] MEDS: CALCIUM CARBONATE 500 MG CHEWABLE TAB CHEW PRN (08:11)
[2016-07-29] MEDS: GABAPENTIN 100 MG CAP PO SCH ×3 (08:11→18:00)
[2016-07-29] MEDS: RANITIDINE HCL 150 MG TAB PO SCH ×2 (08:12→19:31)
[2016-07-29] MEDS: ACETAMINOPHEN 325 MG TAB PO PRN ×2 (08:12→19:34)
--- NOTE | 2016-07-29 13:09 | HHI.PR ---
Subjective Remarks Still complains of increased urinary frequency. No other complaints. Objective Vitals Vital Signs Date Time Temp Pulse Resp B/P Pulse Ox O2 Delivery O2 Flow Rate FiO2 07/29/16 08:00 96.9 73 20 136/83 98 07/28/16 21:20 18 07/28/16 20:00 99.2 95 18 145/90 100 I/O 07/28/16 07/28/16 07/28/16 07/29/16 07/29/16 07/29/16 07:00 15:00 23:00 07:00 15:00 23:00 Intake Total 720 ml 1540 ml 730 ml 520 ml Output Total 500 ml Balance 720 ml 1540 ml 730 ml 20 ml Intake Oral 720 ml 1540 ml 730 ml 520 ml Output Urine Total 500 ml # Voids 4 10 3 1 3 # Bowel Movements 0 Result Diagram: 07/25/16 0800 Objective Remarks GENERAL: Thin patient in no apparent distress. SKIN: Warm and dry. HEAD: Atraumatic. Normocephalic. CARDIOVASCULAR: Regular rate and rhythm. RESPIRATORY: Limited anterior exam. No accessory muscle use. Clear to auscultation. Breath sounds equal bilaterally. GASTROINTESTINAL: Abdomen soft, non-tender, nondistended. NEUROLOGICAL: Awake and alert. Immobile R arm. Barely can lift right leg off of the bed. Normal speech. PSYCHIATRIC: Insight and judgment normal. 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 Venegas has evaluated the patient. The bleed has been stable on repeat head CT. No surgery needed. Speech therapy has been following the patient and last documented diet recommendation was 05/24/16 to indicate mechanical soft diet with thin liquids. As per continue speech therapy it would appear as if the patient has been refusing therapy for at least 90% of the time. We'll need to continue speech therapy until they indicate the patient no longer requires therapy Occupational therapy indicates OT at rehabilitation. Will need intensive occupational therapy evaluation until patient cleared by OT for discharge or patient's functional capacity can no longer improve Physical therapy indicating PT at rehabilitation. We'll need to continue intensive physical therapy, continue right AFO. Right arm pain, controlled Continue Neurontin for right arm neuropathic pain Increased urinary frequency: recurrent. BNP was performed on 07/25, sodium level was normal. No signs of central DI. Urinalysis was again performed on 07/25 which did not indicate any signs of infection Patient has had increased urinary voids; will strictly monitor intake and output; patient has significant number of voids but volume of urine output itself is wnl. Oxybutynin has LEAD GENERATION REPRESENTATIVE interactions with Seroquel and gabapentin; will determine appropriate alternative; may need to consider urology consult. Hypertension: BP stable. Norvasc 10 mg daily Continue to monitor Alcohol and cocaine abuse dependence patient previously counseled. Status post thiamine Tobacco abuse Counseled on cessation Chronic hepatitis C, chronic Patient with chronic transaminitis liver ultrasound showed fatty infiltration Anxiety. Controlled Seroquel low-dose initiated on 05/27. DVT prophylaxis Sequential compression devices. Discharge Planning Patient has no funding for rehabilitation. Denied SSI. Disability and Medicaid are pending. Occupational therapy recommends shower bench, 3-1 bedside commode for discharge. PT recommends right AFO. Elisabeth Church Jul 29, 2016 13:09 Walter Gamboa MD Jul 29, 2016 16:45
[2016-07-29] MEDS: QUEtiapine FUMARATE 25 MG TAB PO SCH (19:31)
[2016-07-29 20:00] VITALS: BP 119/79; PULSE 67; RESP 20; TEMP 96.8; O2SAT 98
[2016-07-30 08:00] VITALS: BP 149/90; PULSE 73; RESP 20; TEMP 96.6; O2SAT 95
[2016-07-30] MEDS: RANITIDINE HCL 150 MG TAB PO SCH ×2 (09:01→22:14)
[2016-07-30] MEDS: GABAPENTIN 100 MG CAP PO SCH ×3 (09:01→17:35)
[2016-07-30] MEDS: POTASSIUM CHLORIDE 10 MEQ CONTROLLED RELEASE TAB PO SCH (09:01)
--- NOTE | 2016-07-30 11:19 | HHI.PR ---
Subjective Remarks No new complaints. No change in clinical status. Objective Vitals Vital Signs Date Time Temp Pulse Resp B/P Pulse Ox O2 Delivery O2 Flow Rate FiO2 07/30/16 08:00 96.6 73 20 149/90 95 07/29/16 20:00 96.8 67 20 119/79 98 I/O 07/29/16 07/29/16 07/29/16 07/30/16 07/30/16 07/30/16 07:02 15:02 23:02 07:02 15:02 23:02 Intake Total 520 ml 1000 ml 720 ml 480 ml Output Total 500 ml 3 ml Balance 20 ml 1000 ml 717 ml 480 ml Intake Oral 520 ml 1000 ml 720 ml 480 ml Output Urine Total 500 ml 3 ml # Voids 1 7 1 4 # Bowel Movements 1 0 Imaging Last Impressions Chest X-Ray 05/12/16 0600 Signed Impressions: Service Date/Time: Thursday, May 12, 2016 05:16 - CONCLUSION: No acute disease. Nadir Hebert MD Liver Ultrasound 05/11/16 0000 Signed Impressions: Service Date/Time: Wednesday, May 11, 2016 08:30 - CONCLUSION: 1. Liver is slightly echogenic which can be seen with fatty infiltration/hepatocellular dysfunction. 2. No evidence for cholelithiasis. Geremias Smith MD Head Magnetic Resonance Angiography 05/11/16 0000 Signed Impressions: Service Date/Time: Wednesday, May 11, 2016 16:21 - CONCLUSION: No acute [place] vascular abnormalities. Jeremy Toledo MD Brain MRI 05/11/16 0000 Signed Impressions: Service Date/Time: Wednesday, May 11, 2016 16:21 - CONCLUSION: 1. Focal acute intraparenchymal hemorrhage in the left thalamus measuring 2.8 cm most likely representing a focal hemorrhagic infarction. 2. Bilateral cortical atrophy and mild chronic white matter changes. 3. No enhancing mass occupying lesions are demonstrated. Estrada Vigil MD Abdomen X-Ray 05/11/16 0000 Signed Impressions: Service Date/Time: Wednesday, May 11, 2016 16:03 - CONCLUSION: No evidence of obstruction. No MRI incompatible foreign body is identified. Estrada Vigil MD Head CT 05/10/16 1431 Signed Impressions: Service Date/Time: Tuesday, May 10, 2016 15:07 - CONCLUSION: 1. 2.3 cm left thalamic hypertensive type hemorrhage with approximately 4 mm of [id number] subfalcine shift. 2. Mild periventricular small vessel ischemic demyelination. 3. Results were called to Dr. Barboza at the time of this dictation. Nicholas Dove MD Objective Remarks GENERAL: Thin, chronically ill appearing patient in no apparent distress. SKIN: Warm and dry. HEAD: Normocephalic. CARDIOVASCULAR: Regular rate and rhythm. RESPIRATORY: Limited anterior exam. No accessory muscle use. Clear to auscultation. Breath sounds equal bilaterally. GASTROINTESTINAL: Patient admits to some soreness with light palpation over the left abdomen, but no pain with deep palpation. Abdomen soft, nondistended. No rigidity or guarding. MUSCULOSKELETAL: Atrophied appearing arms and legs. NEUROLOGICAL: Awake and alert. Immobile R arm. Normal speech. PSYCHIATRIC: Insight and judgment normal. 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 Venegas has evaluated the patient. The bleed has been stable on repeat head CT. No surgery needed. Speech therapy has been following the patient and last documented diet recommendation was 05/24/16 to indicate mechanical soft diet with thin liquids. As per continue speech therapy it would appear as if the patient has been refusing therapy for at least 90% of the time. We'll need to continue speech therapy until they indicate the patient no longer requires therapy Occupational therapy indicates OT at rehabilitation. Will need intensive occupational therapy evaluation until patient cleared by OT for discharge or patient's functional capacity can no longer improve Physical therapy indicating PT at rehabilitation. We'll need to continue intensive physical therapy, continue right AFO. Right arm pain, controlled Continue Neurontin for right arm neuropathic pain Increased urinary frequency: recurrent. BNP was performed on 07/25, sodium level was normal. No signs of central DI. Urinalysis was again performed on 07/25 which did not indicate any signs of infection Patient has had increased urinary voids; will strictly monitor intake and output; patient has significant number of voids but volume of urine output itself is wnl. 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 Hypertension: Intermittent hypertension. BP 149/90 this morning. Norvasc 10 mg daily PRN clonidine and enalapril for SBP >160. Continue to monitor Alcohol and cocaine abuse dependence patient previously counseled. Status post thiamine Tobacco abuse Counseled on cessation Chronic hepatitis C, chronic Patient with chronic transaminitis liver ultrasound showed fatty infiltration Anxiety. Controlled Seroquel low-dose initiated on 05/27. DVT prophylaxis Sequential compression devices. Discharge Planning Patient has no funding for rehabilitation. Denied SSI. Disability and Medicaid are pending. Occupational therapy recommends shower bench, 3-1 bedside commode for discharge. PT recommends right AFO. Elisabeth Church Jul 30, 2016 11:19 Walter Gamboa MD Jul 30, 2016 13:25
[2016-07-30] MEDS: ACETAMINOPHEN 325 MG TAB PO PRN (12:33)
[2016-07-30 20:00] VITALS: BP 136/83; PULSE 87; RESP 20; TEMP 96.8; O2SAT 97
[2016-07-30] MEDS: QUEtiapine FUMARATE 25 MG TAB PO SCH (22:14)
[2016-07-30] MEDS: CALCIUM CARBONATE 500 MG CHEWABLE TAB CHEW PRN (22:37)
[2016-07-31 08:00] VITALS: BP 139/84; PULSE 75; RESP 17; TEMP 97; O2SAT 96
[2016-07-31] MEDS: RANITIDINE HCL 150 MG TAB PO SCH ×2 (08:48→20:29)
[2016-07-31] MEDS: GABAPENTIN 100 MG CAP PO SCH ×3 (08:48→17:46)
[2016-07-31] MEDS: POTASSIUM CHLORIDE 10 MEQ CONTROLLED RELEASE TAB PO SCH (08:48)
[2016-07-31] MEDS: CALCIUM CARBONATE 500 MG CHEWABLE TAB CHEW PRN (08:48)
[2016-07-31] MEDS: ACETAMINOPHEN 325 MG TAB PO PRN ×2 (08:48→17:49)
--- NOTE | 2016-07-31 17:59 | HHI.PR ---
Subjective Remarks Late entry. Patient evaluated early this morning. Still has increased urinary frequency but no other acute complaints. Objective Vitals Vital Signs Date Time Temp Pulse Resp B/P Pulse Ox O2 Delivery O2 Flow Rate FiO2 07/31/16 09:48 20 07/31/16 08:00 97.0 75 17 139/84 96 07/30/16 20:00 96.8 87 20 136/83 97 I/O 07/30/16 07/30/16 07/30/16 07/31/16 07/31/16 07/31/16 07:00 15:00 23:00 07:00 15:00 23:00 Intake Total 480 ml 650 ml 480 ml 360 ml Output Total 550 ml 700 ml Balance 480 ml 650 ml -70 ml -340 ml Intake Oral 480 ml 650 ml 480 ml 360 ml Output Urine Total 550 ml 700 ml # Voids 4 6 3 3 4 # Bowel Movements 0 1 1 0 0 Objective Remarks GENERAL: Thin, chronically ill appearing patient in no apparent distress. SKIN: Warm and dry. HEAD: Normocephalic. CARDIOVASCULAR: Regular rate and rhythm. RESPIRATORY: Limited anterior exam. No accessory muscle use. Clear to auscultation. Breath sounds equal bilaterally. GASTROINTESTINAL: Normoactive bowel sounds. Abdomen soft, nontender, nondistended. MUSCULOSKELETAL: 2+ right distal radial pulse. NEUROLOGICAL: Awake and alert. Immobile R arm. Normal speech. PSYCHIATRIC: Insight and judgment normal. 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 Venegas has evaluated the patient. The bleed has been stable on repeat head CT. No surgery needed. Speech therapy has been following the patient and last documented diet recommendation was 05/24/16 to indicate mechanical soft diet with thin liquids. As per continue speech therapy it would appear as if the patient has been refusing therapy for at least 90% of the time. We'll need to continue speech therapy until they indicate the patient no longer requires therapy Occupational therapy indicates OT at rehabilitation. Will need intensive occupational therapy evaluation until patient cleared by OT for discharge or patient's functional capacity can no longer improve Physical therapy indicating PT at rehabilitation. We'll need to continue intensive physical therapy, continue right AFO. Right arm pain, controlled Continue Neurontin for right arm neuropathic pain Increased urinary frequency: recurrent. BNP was performed on 07/25, sodium level was normal. No signs of central DI. Urinalysis was again performed on 07/25 which did not indicate any signs of infection Patient has had increased urinary voids; will strictly monitor intake and output; patient has significant number of voids but volume of urine output itself is wnl. 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 Gamboa has suggested belladonna once daily. Will start and monitor for any ROUNDHOUSE WORKER side effects. Hypertension: Intermittent hypertension. BP stable this morning. Norvasc 10 mg daily PRN clonidine and enalapril for SBP >160. Continue to monitor Alcohol and cocaine abuse dependence patient previously counseled. Status post thiamine Tobacco abuse Counseled on cessation Chronic hepatitis C, chronic Patient with chronic transaminitis liver ultrasound showed fatty infiltration Anxiety. Controlled Seroquel low-dose initiated on 05/27. DVT prophylaxis Sequential compression devices. Discharge Planning Patient has no funding for rehabilitation. Denied SSI. Disability and Medicaid are pending. Occupational therapy recommends shower bench, 3-1 bedside commode for discharge. PT recommends right AFO. Elisabeth Church Jul 31, 2016 17:59 Walter Gamboa MD Jul 31, 2016 19:43
[2016-07-31 20:00] VITALS: BP 144/88; PULSE 83; RESP 16; TEMP 98.7; O2SAT 98
[2016-07-31] MEDS: BELLADONNA ALKALOIDS/OPIUM 60 MG SUPP RECTAL SCH (20:28)
[2016-07-31] MEDS: QUEtiapine FUMARATE 25 MG TAB PO SCH (20:29)
--- NOTE | 2016-08-01 08:22 | HHI.PR ---
Subjective Remarks Patient states her urinary frequency has improved (after starting belladonna last night) with no significant side effects reported. She states she slept without having to get up at night. Objective Vitals Vital Signs Date Time Temp Pulse Resp B/P Pulse Ox O2 Delivery O2 Flow Rate FiO2 07/31/16 20:00 98.7 83 16 144/88 98 07/31/16 09:48 20 I/O 07/31/16 07/31/16 07/31/16 08/01/16 08/01/16 08/01/16 07:00 15:00 23:00 07:00 15:00 23:00 Intake Total 360 ml Output Total 700 ml Balance -340 ml Intake Oral 360 ml Output Urine Total 700 ml # Voids 3 6 3 # Bowel Movements 0 0 0 Objective Remarks GENERAL: Thin, chronically ill appearing patient in no apparent distress. SKIN: Warm and dry. HEAD: Normocephalic. CARDIOVASCULAR: Regular rate and rhythm. RESPIRATORY: Limited anterior exam. No accessory muscle use. Clear to auscultation. Breath sounds equal bilaterally. GASTROINTESTINAL: Abdomen soft, nontender, nondistended. MUSCULOSKELETAL: 2+ right distal radial pulse. NEUROLOGICAL: Awake and alert. Immobile R arm. Normal speech. PSYCHIATRIC: Insight and judgment normal. 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 Venegas has evaluated the patient. The bleed has been stable on repeat head CT. No surgery needed. Speech therapy has been following the patient and last documented diet recommendation was 05/24/16 to indicate mechanical soft diet with thin liquids. As per continue speech therapy it would appear as if the patient has been refusing therapy for at least 90% of the time. We'll need to continue speech therapy until they indicate the patient no longer requires therapy Occupational therapy indicates OT at rehabilitation. Will need intensive occupational therapy evaluation until patient cleared by OT for discharge or patient's functional capacity can no longer improve Physical therapy indicating PT at rehabilitation. We'll need to continue intensive physical therapy, continue right AFO. Right arm pain, controlled Continue Neurontin for right arm neuropathic pain Increased urinary frequency: improved BNP was performed on 07/25, sodium level was normal. No signs of central DI. Urinalysis was again performed on 07/25 which did not indicate any signs of infection Patient has had increased urinary voids; will strictly monitor intake and output; patient has significant number of voids but volume of urine output itself is wnl. 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 Gamboa has suggested belladonna once daily which was started yesterday. Patient is much improved; will continue. Hypertension: Intermittent hypertension. BP stable this morning. Norvasc 10 mg daily PRN clonidine and enalapril for SBP >160. Continue to monitor Alcohol and cocaine abuse dependence patient previously counseled. Status post thiamine Tobacco abuse Counseled on cessation Chronic hepatitis C, chronic Patient with chronic transaminitis liver ultrasound showed fatty infiltration Anxiety. Controlled Seroquel low-dose initiated on 05/27. DVT prophylaxis Sequential compression devices. Discharge Planning Patient has no funding for rehabilitation. Denied SSI. Disability and Medicaid are pending. Occupational therapy recommends shower bench, 3-1 bedside commode for discharge. PT recommends right AFO. Elisabeth Church Aug 01, 2016 08:22 Walter Gamboa MD Aug 01, 2016 18:44
[2016-08-01] MEDS: BELLADONNA ALKALOIDS/OPIUM 60 MG SUPP RECTAL SCH ×2 (09:00→09:15)
[2016-08-01] MEDS: RANITIDINE HCL 150 MG TAB PO SCH ×2 (09:15→21:51)
[2016-08-01] MEDS: GABAPENTIN 100 MG CAP PO SCH ×3 (09:15→17:22)
[2016-08-01] MEDS: POTASSIUM CHLORIDE 10 MEQ CONTROLLED RELEASE TAB PO SCH (09:15)
[2016-08-01 09:57] VITALS: BP 124/78; PULSE 78; RESP 20; TEMP 95.7; O2SAT 95
[2016-08-01 21:21] VITALS: BP 121/76; PULSE 80; RESP 18; TEMP 97.5; O2SAT 96
[2016-08-01] MEDS: QUEtiapine FUMARATE 25 MG TAB PO SCH (21:51)
[2016-08-02] MEDS: ACETAMINOPHEN 325 MG TAB PO PRN (04:04)
[2016-08-02 08:00] VITALS: BP 137/84; PULSE 73; RESP 22; TEMP 96.9; O2SAT 96
[2016-08-02] MEDS: POTASSIUM CHLORIDE 10 MEQ CONTROLLED RELEASE TAB PO SCH (09:48)
[2016-08-02] MEDS: GABAPENTIN 100 MG CAP PO SCH ×3 (09:49→17:40)
[2016-08-02] MEDS: BELLADONNA ALKALOIDS/OPIUM 60 MG SUPP RECTAL SCH (09:49)
[2016-08-02] MEDS: RANITIDINE HCL 150 MG TAB PO SCH ×2 (09:49→21:48)
--- NOTE | 2016-08-02 17:00 | HHI.PR ---
Subjective Remarks Patient complains about receiving the Belladonna suppository in the morning and prefer it be given at night as it was the first time. Objective Vitals Vital Signs Date Time Temp Pulse Resp B/P Pulse Ox O2 Delivery O2 Flow Rate FiO2 08/02/16 08:00 96.9 73 22 137/84 96 08/01/16 21:21 97.5 80 18 121/76 96 I/O 08/01/16 08/01/16 08/01/16 08/02/16 08/02/16 08/02/16 07:00 15:00 23:00 07:00 15:00 23:00 Intake Total 600 ml 120 ml 600 ml Balance 600 ml 120 ml 600 ml Intake Oral 600 ml 120 ml 600 ml IV Total 0 ml # Voids 3 5 2 9 # Bowel Movements 0 0 0 0 Objective Remarks GENERAL: Thin, chronically ill appearing patient in no apparent distress. SKIN: Warm and dry. HEAD: Normocephalic. CARDIOVASCULAR: Regular rate and rhythm. RESPIRATORY: Limited anterior exam. No accessory muscle use. Clear to auscultation. Breath sounds equal bilaterally. GASTROINTESTINAL: Abdomen soft, nontender, nondistended. MUSCULOSKELETAL: 2+ right distal radial pulse. NEUROLOGICAL: Awake and alert. Immobile R arm. Normal speech. PSYCHIATRIC: Insight and judgment normal. 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 Venegas has evaluated the patient. The bleed has been stable on repeat head CT. No surgery needed. Speech therapy has been following the patient and last documented diet recommendation was 05/24/16 to indicate mechanical soft diet with thin liquids. As per continue speech therapy it would appear as if the patient has been refusing therapy for at least 90% of the time. We'll need to continue speech therapy until they indicate the patient no longer requires therapy Occupational therapy indicates OT at rehabilitation. Will need intensive occupational therapy evaluation until patient cleared by OT for discharge or patient's functional capacity can no longer improve Physical therapy indicating PT at rehabilitation. We'll need to continue intensive physical therapy, continue right AFO. Right arm pain, controlled Continue Neurontin for right arm neuropathic pain Increased urinary frequency: improved BNP was performed on 07/25, sodium level was normal. No signs of central DI. Urinalysis was again performed on 07/25 which did not indicate any signs of infection Patient has had increased urinary voids; will strictly monitor intake and output; patient has significant number of voids but volume of urine output itself is wnl. 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 Gamboa has suggested belladonna once daily which was started and patient is much improved; will continue. Hypertension: Intermittent hypertension. BP stable this morning. Norvasc 10 mg daily PRN clonidine and enalapril for SBP >160. Continue to monitor Alcohol and cocaine abuse dependence patient previously counseled. Status post thiamine Tobacco abuse Counseled on cessation Chronic hepatitis C, chronic Patient with chronic transaminitis liver ultrasound showed fatty infiltration Anxiety. Controlled Seroquel low-dose initiated on 05/27. GI prophylaxis: No bowel movement recorded over the past few days, but the patient states she had BM 1.5 days ago. Justyna-colace as needed. Patient told to ask for it. DVT prophylaxis Sequential compression devices. Discharge Planning Patient has no funding for rehabilitation. Denied SSI. Disability and Medicaid are pending. Occupational therapy recommends shower bench, 3-1 bedside commode for discharge. PT recommends right AFO. Elisabeth Church Aug 02, 2016 17:00
[2016-08-02 20:00] VITALS: BP 122/83; PULSE 91; RESP 18; TEMP 98.8; O2SAT 94
[2016-08-02] MEDS: QUEtiapine FUMARATE 25 MG TAB PO SCH (21:48)
--- NOTE | 2016-08-03 08:48 | HHI.PR ---
Subjective Remarks Patient seen and examined today. Patient indicating that she started negative toothache. Objective Vitals Vital Signs Date Time Temp Pulse Resp B/P Pulse Ox O2 Delivery O2 Flow Rate FiO2 08/02/16 20:00 98.8 91 18 122/83 94 I/O 08/02/16 08/02/16 08/02/16 08/03/16 08/03/16 08/03/16 07:00 15:00 23:00 07:00 15:00 23:00 Intake Total 600 ml Output Total 200 ml 400 ml Balance 600 ml -200 ml -400 ml Intake Oral 600 ml Output Urine Total 200 ml 400 ml # Voids 9 1 # Bowel Movements 0 0 2 Objective Remarks GENERAL: Well-developed, well-nourished, in no acute distress. alert and orientated HEENT: Head is normocephalic without any lesions or masses noted right facial droop. NECK: Supple without any masses. Trachea midline no deviation. CARDIAC: Regular rhythm, regular rate. S1/S2 are heard. No murmurs gallops or rubs. LUNGS: Clear to auscultation bilaterally. No wheeze, rhonchi or rales. No use of accessory muscles on inspiration or expiration. ABDOMEN: Soft, nontender. Nondistended. Bowel sounds heard in all 4 quadrants. No organomegaly or masses. Negative rebound, negative guarding EXTREMITIES: No edema, pulses are equal bilaterally. No cyanosis or clubbing NEUROLOGY: Mood and affect appear appropriate. Dense right hemiparesis which appears to be improving in the lower extremity. Patient is able lift her right leg off the bed. However she is not able to move her foot, wiggle her toes. Her right upper extremity is still flaccid. Patient started getting contractures of the right lower extremity. 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 Venegas has evaluated the patient. The bleed has been stable on repeat head CT. No surgery needed. Speech therapy has been following the patient and last documented diet recommendation was 05/24/16 to indicate mechanical soft diet with thin liquids. As per continue speech therapy it would appear as if the patient has been refusing therapy for at least 90% of the time. We'll need to continue speech therapy until they indicate the patient no longer requires therapy Occupational therapy indicates OT at rehabilitation. Will need intensive occupational therapy evaluation until patient cleared by OT for discharge or patient's functional capacity can no longer improve Physical therapy indicating PT at rehabilitation. We'll need to continue intensive physical therapy, continue right AFO, Right arm pain, controlled Continue Neurontin for right arm neuropathic pain Dysuria, urinary frequency BNP was performed, sodium level was normal. No signs of central DI Urinalysis was performed which did not indicate any signs of infection Belladonna rectal suppository Hypertension, Norvasc 10 mg daily, Vasotec, clonidine as needed Alcohol and cocaine abuse dependence patient previously counseled. Status post thiamine Tobacco abuse Counseled on cessation Chronic hepatitis C, chronic Patient with chronic transaminitis liver ultrasound showed fatty infiltration Anxiety. Controlled Seroquel low-dose initiated on 05/27. Bowel regimen Justyna-Colace as needed DVT prophylaxis Sequential compression devices. Discharge Planning Patient has no funding for rehabilitation. global marketing manager is following up with [facility] regarding status of applications. Occupational therapy recommends shower bench, 3-1 bedside commode for discharge. PT recommends right AFO. Jaycob Rebolledo Aug 03, 2016 08:48
[2016-08-03] MEDS: GABAPENTIN 100 MG CAP PO SCH ×3 (10:54→17:59)
[2016-08-03] MEDS: RANITIDINE HCL 150 MG TAB PO SCH ×2 (10:54→21:13)
[2016-08-03] MEDS: POTASSIUM CHLORIDE 10 MEQ CONTROLLED RELEASE TAB PO SCH (10:54)
[2016-08-03 14:43] VITALS: BP 126/82; PULSE 75; RESP 15; TEMP 96.5; O2SAT 99
[2016-08-03 20:00] VITALS: BP 133/86; PULSE 91; RESP 20; TEMP 98.5; O2SAT 93
[2016-08-03] MEDS: BELLADONNA ALKALOIDS/OPIUM 60 MG SUPP RECTAL SCH (21:13)
[2016-08-03] MEDS: QUEtiapine FUMARATE 25 MG TAB PO SCH (21:13)
--- NOTE | 2016-08-04 07:50 | HHI.PR ---
Subjective Remarks Patient seen and examined today. Patient states that she is now able to move her fingers. Patient denies any new complaints Objective Vitals Vital Signs Date Time Temp Pulse Resp B/P Pulse Ox O2 Delivery O2 Flow Rate FiO2 08/03/16 20:00 98.5 91 20 133/86 93 08/03/16 14:43 96.5 75 15 126/82 99 I/O 08/03/16 08/03/16 08/03/16 08/04/16 08/04/16 08/04/16 07:00 15:00 23:00 07:00 15:00 23:00 Intake Total 750 ml 60 ml 60 ml Output Total 400 ml Balance -400 ml 750 ml 60 ml 60 ml Intake Oral 750 ml 60 ml 60 ml Output Urine Total 400 ml # Voids 2 2 1 # Bowel Movements 2 0 0 Objective Remarks GENERAL: Well-developed, well-nourished, in no acute distress. alert and orientated HEENT: Head is normocephalic without any lesions or masses noted right facial droop. NECK: Supple without any masses. Trachea midline no deviation. CARDIAC: Regular rhythm, regular rate. S1/S2 are heard. No murmurs gallops or rubs. LUNGS: Clear to auscultation bilaterally. No wheeze, rhonchi or rales. No use of accessory muscles on inspiration or expiration. ABDOMEN: Soft, nontender. Nondistended. Bowel sounds heard in all 4 quadrants. No organomegaly or masses. Negative rebound, negative guarding EXTREMITIES: No edema, pulses are equal bilaterally. No cyanosis or clubbing NEUROLOGY: Mood and affect appear appropriate. Dense right hemiparesis which appears to be improving in the lower extremity. Patient is able lift her right leg off the bed. However she is not able to move her foot, wiggle her toes. Her right upper extremity is still flaccid. Patient started getting contractures of the right lower extremity. 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 Venegas has evaluated the patient. The bleed has been stable on repeat head CT. No surgery needed. Speech therapy has been following the patient and last documented diet recommendation was 05/24/16 to indicate mechanical soft diet with thin liquids. As per continue speech therapy it would appear as if the patient has been refusing therapy for at least 90% of the time. We'll need to continue speech therapy until they indicate the patient no longer requires therapy Occupational therapy indicates OT at rehabilitation. Will need intensive occupational therapy evaluation until patient cleared by OT for discharge or patient's functional capacity can no longer improve Physical therapy indicating PT at rehabilitation. We'll need to continue intensive physical therapy, continue right AFO, Right arm pain, controlled Continue Neurontin for right arm neuropathic pain Dysuria, urinary frequency BNP was performed, sodium level was normal. No signs of central DI Urinalysis was performed which did not indicate any signs of infection Belladonna rectal suppository Hypertension, Norvasc 10 mg daily, Vasotec, clonidine as needed Alcohol and cocaine abuse dependence patient previously counseled. Status post thiamine Tobacco abuse Counseled on cessation Chronic hepatitis C, chronic Patient with chronic transaminitis liver ultrasound showed fatty infiltration Anxiety. Controlled Seroquel low-dose initiated on 05/27. Bowel regimen Justyna-Colace as needed DVT prophylaxis Sequential compression devices. Discharge Planning Patient has no funding for rehabilitation. fund development manager is following up with [facility] regarding status of applications. Occupational therapy recommends shower bench, 3-1 bedside commode for discharge. PT recommends right AFO. Jaycob Rebolledo Aug 04, 2016 07:50
[2016-08-04 08:00] VITALS: BP 113/74; PULSE 80; RESP 18; TEMP 98.4; O2SAT 95
[2016-08-04] MEDS: RANITIDINE HCL 150 MG TAB PO SCH ×2 (08:07→21:56)
[2016-08-04] MEDS: GABAPENTIN 100 MG CAP PO SCH ×3 (08:07→17:48)
[2016-08-04] MEDS: POTASSIUM CHLORIDE 10 MEQ CONTROLLED RELEASE TAB PO SCH (08:07)
[2016-08-04 20:00] VITALS: BP 125/78; PULSE 78; RESP 14; TEMP 98.3; O2SAT 97
[2016-08-04] MEDS: BELLADONNA ALKALOIDS/OPIUM 60 MG SUPP RECTAL SCH (21:56)
[2016-08-04] MEDS: QUEtiapine FUMARATE 25 MG TAB PO SCH (21:56)
[2016-08-05 08:01] VITALS: BP 127/88; PULSE 78; RESP 20; TEMP 96.4; O2SAT 97
[2016-08-05] MEDS: RANITIDINE HCL 150 MG TAB PO SCH ×2 (09:00→21:02)
[2016-08-05] MEDS: GABAPENTIN 100 MG CAP PO SCH ×3 (09:00→18:00)
[2016-08-05] MEDS: POTASSIUM CHLORIDE 10 MEQ CONTROLLED RELEASE TAB PO SCH (09:00)
--- NOTE | 2016-08-05 09:29 | HHI.PR ---
Subjective Remarks Patient seen and examined today. Patient denies any new complaints. No change in clinical status. Objective Vitals Vital Signs Date Time Temp Pulse Resp B/P Pulse Ox O2 Delivery O2 Flow Rate FiO2 08/05/16 08:01 96.4 78 20 127/88 97 08/04/16 20:00 98.3 78 14 125/78 97 I/O 08/04/16 08/04/16 08/04/16 08/05/16 08/05/16 08/05/16 07:00 15:00 23:00 07:00 15:00 23:00 Intake Total 60 ml 480 ml Output Total 360 ml Balance 60 ml 480 ml -360 ml Intake Oral 60 ml 480 ml Output Urine Total 360 ml # Voids 1 5 1 # Bowel Movements 0 1 Objective Remarks GENERAL: Well-developed, well-nourished, in no acute distress. alert and orientated HEENT: Head is normocephalic without any lesions or masses noted right facial droop. NECK: Supple without any masses. Trachea midline no deviation. CARDIAC: Regular rhythm, regular rate. S1/S2 are heard. No murmurs gallops or rubs. LUNGS: Clear to auscultation bilaterally. No wheeze, rhonchi or rales. No use of accessory muscles on inspiration or expiration. ABDOMEN: Soft, nontender. Nondistended. Bowel sounds heard in all 4 quadrants. No organomegaly or masses. Negative rebound, negative guarding EXTREMITIES: No edema, pulses are equal bilaterally. No cyanosis or clubbing NEUROLOGY: Mood and affect appear appropriate. Dense right hemiparesis which appears to be improving in the lower extremity. Patient is able lift her right leg off the bed. However she is not able to move her foot, wiggle her toes. Her right upper extremity is still flaccid. Patient started getting contractures of the right lower extremity. 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 Venegas has evaluated the patient. The bleed has been stable on repeat head CT. No surgery needed. Speech therapy has been following the patient and last documented diet recommendation was 05/24/16 to indicate mechanical soft diet with thin liquids. As per continue speech therapy it would appear as if the patient has been refusing therapy for at least 90% of the time. We'll need to continue speech therapy until they indicate the patient no longer requires therapy Occupational therapy indicates OT at rehabilitation. Will need intensive occupational therapy evaluation until patient cleared by OT for discharge or patient's functional capacity can no longer improve Physical therapy indicating PT at rehabilitation. We'll need to continue intensive physical therapy, continue right AFO, Right arm pain, controlled Continue Neurontin for right arm neuropathic pain Dysuria, urinary frequency BNP was performed, sodium level was normal. No signs of central DI Urinalysis was performed which did not indicate any signs of infection Belladonna rectal suppository Hypertension, Norvasc 10 mg daily, Vasotec, clonidine as needed Alcohol and cocaine abuse dependence patient previously counseled. Status post thiamine Tobacco abuse Counseled on cessation Chronic hepatitis C, chronic Patient with chronic transaminitis liver ultrasound showed fatty infiltration Anxiety. Controlled Seroquel low-dose initiated on 05/27. Bowel regimen Justyna-Colace as needed DVT prophylaxis Sequential compression devices. Discharge Planning Patient has no funding for rehabilitation. sales service route manager is following up with [facility] regarding status of applications. Occupational therapy recommends shower bench, 3-1 bedside commode for discharge. PT recommends right AFO. Jaycob Rebolledo Aug 05, 2016 09:28
[2016-08-05 19:40] VITALS: BP 129/74; PULSE 78; RESP 20; TEMP 98.4; O2SAT 97
[2016-08-05] MEDS: BELLADONNA ALKALOIDS/OPIUM 60 MG SUPP RECTAL SCH (21:02)
[2016-08-05] MEDS: QUEtiapine FUMARATE 25 MG TAB PO SCH (21:02)
[2016-08-06 08:00] VITALS: BP 130/81; PULSE 76; RESP 20; TEMP 96.9; O2SAT 97
[2016-08-06] MEDS: GABAPENTIN 100 MG CAP PO SCH ×3 (08:34→21:05)
[2016-08-06] MEDS: RANITIDINE HCL 150 MG TAB PO SCH ×2 (08:34→21:05)
[2016-08-06] MEDS: POTASSIUM CHLORIDE 10 MEQ CONTROLLED RELEASE TAB PO SCH (08:34)
--- NOTE | 2016-08-06 08:43 | HHI.PR ---
Subjective Remarks Patient seen and examined today. Patient denies any new complaints. No change in clinical status. Objective Vitals Vital Signs Date Time Temp Pulse Resp B/P Pulse Ox O2 Delivery O2 Flow Rate FiO2 08/06/16 08:00 96.9 76 20 130/81 97 08/05/16 19:40 98.4 78 20 129/74 97 I/O 08/05/16 08/05/16 08/05/16 08/06/16 08/06/16 08/06/16 07:00 15:00 23:00 07:00 15:00 23:00 Intake Total 840 ml 420 ml Output Total 360 ml 700 ml Balance -360 ml 140 ml 420 ml Intake Oral 840 ml 420 ml Output Urine Total 360 ml 700 ml # Voids 1 3 5 1 Objective Remarks GENERAL: Well-developed, well-nourished, in no acute distress. alert and orientated HEENT: Head is normocephalic without any lesions or masses noted right facial droop. NECK: Supple without any masses. Trachea midline no deviation. CARDIAC: Regular rhythm, regular rate. S1/S2 are heard. No murmurs gallops or rubs. LUNGS: Clear to auscultation bilaterally. No wheeze, rhonchi or rales. No use of accessory muscles on inspiration or expiration. ABDOMEN: Soft, nontender. Nondistended. Bowel sounds heard in all 4 quadrants. No organomegaly or masses. Negative rebound, negative guarding EXTREMITIES: No edema, pulses are equal bilaterally. No cyanosis or clubbing NEUROLOGY: Mood and affect appear appropriate. Dense right hemiparesis which appears to be improving in the lower extremity. Patient is able lift her right leg off the bed. However she is not able to move her foot, wiggle her toes. Her right upper extremity is still flaccid. Patient started getting contractures of the right lower extremity. 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 Venegas has evaluated the patient. The bleed has been stable on repeat head CT. No surgery needed. Speech therapy has been following the patient and last documented diet recommendation was 05/24/16 to indicate mechanical soft diet with thin liquids. As per continue speech therapy it would appear as if the patient has been refusing therapy for at least 90% of the time. We'll need to continue speech therapy until they indicate the patient no longer requires therapy Occupational therapy indicates OT at rehabilitation. Will need intensive occupational therapy evaluation until patient cleared by OT for discharge or patient's functional capacity can no longer improve Physical therapy indicating PT at rehabilitation. We'll need to continue intensive physical therapy, continue right AFO, Right arm pain, controlled Continue Neurontin for right arm neuropathic pain Dysuria, urinary frequency BNP was performed, sodium level was normal. No signs of central DI Urinalysis was performed which did not indicate any signs of infection Belladonna rectal suppository Hypertension, Norvasc 10 mg daily, Vasotec, clonidine as needed Alcohol and cocaine abuse dependence patient previously counseled. Status post thiamine Tobacco abuse Counseled on cessation Chronic hepatitis C, chronic Patient with chronic transaminitis liver ultrasound showed fatty infiltration Anxiety. Controlled Seroquel low-dose initiated on 05/27. Bowel regimen Justyna-Colace as needed DVT prophylaxis Sequential compression devices. Discharge Planning Patient has no funding for rehabilitation. store loss prevention manager is following up with [facility] regarding status of applications. Occupational therapy recommends shower bench, 3-1 bedside commode for discharge. PT recommends right AFO. Jaycob Rebolledo Aug 06, 2016 08:43
[2016-08-06 20:57] VITALS: BP 123/75; PULSE 75; RESP 20; TEMP 97.8; O2SAT 96
[2016-08-06] MEDS: QUEtiapine FUMARATE 25 MG TAB PO SCH (21:04)
[2016-08-06] MEDS: BELLADONNA ALKALOIDS/OPIUM 60 MG SUPP RECTAL SCH (21:06)
[2016-08-07 08:26] VITALS: BP 119/78; PULSE 68; RESP 20; TEMP 98.2; O2SAT 99
[2016-08-07] MEDS: GABAPENTIN 100 MG CAP PO SCH ×3 (08:30→18:00)
[2016-08-07] MEDS: RANITIDINE HCL 150 MG TAB PO SCH (08:30)
[2016-08-07] MEDS: POTASSIUM CHLORIDE 10 MEQ CONTROLLED RELEASE TAB PO SCH (08:30)
--- NOTE | 2016-08-07 10:44 | HHI.PR ---
Subjective Remarks Patient seen and examined today. Patient denies any new complaints. No change in clinical status. Objective Vitals Vital Signs Date Time Temp Pulse Resp B/P Pulse Ox O2 Delivery O2 Flow Rate FiO2 08/07/16 08:26 98.2 68 20 119/78 99 08/06/16 20:57 97.8 75 20 123/75 96 I/O 08/06/16 08/06/16 08/06/16 08/07/16 08/07/16 08/07/16 07:00 15:00 23:00 07:00 15:00 23:00 Intake Total 900 ml 210 ml 0 ml Output Total 400 ml Balance 500 ml 210 ml 0 ml Intake Oral 900 ml 210 ml 0 ml Output Urine Total 400 ml # Voids 1 3 5 1 Objective Remarks GENERAL: Well-developed, well-nourished, in no acute distress. alert and orientated HEENT: Head is normocephalic without any lesions or masses noted right facial droop. NECK: Supple without any masses. Trachea midline no deviation. CARDIAC: Regular rhythm, regular rate. S1/S2 are heard. No murmurs gallops or rubs. LUNGS: Clear to auscultation bilaterally. No wheeze, rhonchi or rales. No use of accessory muscles on inspiration or expiration. ABDOMEN: Soft, nontender. Nondistended. Bowel sounds heard in all 4 quadrants. No organomegaly or masses. Negative rebound, negative guarding EXTREMITIES: No edema, pulses are equal bilaterally. No cyanosis or clubbing NEUROLOGY: Mood and affect appear appropriate. Dense right hemiparesis which appears to be improving in the lower extremity. Patient is able lift her right leg off the bed. However she is not able to move her foot, wiggle her toes. Her right upper extremity is still flaccid. Patient started getting contractures of the right lower extremity. 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 Venegas has evaluated the patient. The bleed has been stable on repeat head CT. No surgery needed. Speech therapy has been following the patient and last documented diet recommendation was 05/24/16 to indicate mechanical soft diet with thin liquids. As per continue speech therapy it would appear as if the patient has been refusing therapy for at least 90% of the time. We'll need to continue speech therapy until they indicate the patient no longer requires therapy Occupational therapy indicates OT at rehabilitation. Will need intensive occupational therapy evaluation until patient cleared by OT for discharge or patient's functional capacity can no longer improve Physical therapy indicating PT at rehabilitation. We'll need to continue intensive physical therapy, continue right AFO, Right arm pain, controlled Continue Neurontin for right arm neuropathic pain Dysuria, urinary frequency BNP was performed, sodium level was normal. No signs of central DI Urinalysis was performed which did not indicate any signs of infection Belladonna rectal suppository Hypertension, Norvasc 10 mg daily, Vasotec, clonidine as needed Alcohol and cocaine abuse dependence patient previously counseled. Status post thiamine Tobacco abuse Counseled on cessation Chronic hepatitis C, chronic Patient with chronic transaminitis liver ultrasound showed fatty infiltration Anxiety. Controlled Seroquel low-dose initiated on 05/27. Bowel regimen Justyna-Colace as needed DVT prophylaxis Sequential compression devices. Discharge Planning Patient has no funding for rehabilitation. transportation project manager is following up with [facility] regarding status of applications. Occupational therapy recommends shower bench, 3-1 bedside commode for discharge. PT recommends right AFO. Jaycob Rebolledo Aug 07, 2016 10:44
[2016-08-07 20:00] VITALS: BP 123/81; PULSE 82; RESP 20; TEMP 97.3; O2SAT 96
[2016-08-07] MEDS: FAMOTIDINE 20 MG TAB PO SCH (21:27)
[2016-08-07] MEDS: QUEtiapine FUMARATE 25 MG TAB PO SCH (21:28)
[2016-08-07] MEDS: BELLADONNA ALKALOIDS/OPIUM 60 MG SUPP RECTAL SCH (21:28)
--- NOTE | 2016-08-08 08:15 | HHI.PR ---
Subjective Remarks Patient seen and examined today. Patient denies any new complaints. No change in clinical status. Objective Vitals Vital Signs Date Time Temp Pulse Resp B/P Pulse Ox O2 Delivery O2 Flow Rate FiO2 08/07/16 20:00 97.3 82 20 123/81 96 08/07/16 08:26 98.2 68 20 119/78 99 I/O 08/07/16 08/07/16 08/07/16 08/08/16 08/08/16 08/08/16 07:00 15:00 23:00 07:00 15:00 23:00 Intake Total 0 ml 280 ml 120 ml Balance 0 ml 280 ml 120 ml Intake Oral 0 ml 280 ml 120 ml # Voids 1 5 1 # Bowel Movements 1 Objective Remarks GENERAL: Well-developed, well-nourished, in no acute distress. alert and orientated HEENT: Head is normocephalic without any lesions or masses noted right facial droop. NECK: Supple without any masses. Trachea midline no deviation. CARDIAC: Regular rhythm, regular rate. S1/S2 are heard. No murmurs gallops or rubs. LUNGS: Clear to auscultation bilaterally. No wheeze, rhonchi or rales. No use of accessory muscles on inspiration or expiration. ABDOMEN: Soft, nontender. Nondistended. Bowel sounds heard in all 4 quadrants. No organomegaly or masses. Negative rebound, negative guarding EXTREMITIES: No edema, pulses are equal bilaterally. No cyanosis or clubbing NEUROLOGY: Mood and affect appear appropriate. Dense right hemiparesis which appears to be improving in the lower extremity. Patient is able lift her right leg off the bed. However she is not able to move her foot, wiggle her toes. Her right upper extremity is still flaccid. Patient started getting contractures of the right lower extremity. 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 Venegas has evaluated the patient. The bleed has been stable on repeat head CT. No surgery needed. Speech therapy has been following the patient and last documented diet recommendation was 05/24/16 to indicate mechanical soft diet with thin liquids. As per continue speech therapy it would appear as if the patient has been refusing therapy for at least 90% of the time. We'll need to continue speech therapy until they indicate the patient no longer requires therapy Occupational therapy indicates OT at rehabilitation. Will need intensive occupational therapy evaluation until patient cleared by OT for discharge or patient's functional capacity can no longer improve Physical therapy indicating PT at rehabilitation. We'll need to continue intensive physical therapy, continue right AFO, Right arm pain, controlled Continue Neurontin for right arm neuropathic pain Dysuria, urinary frequency BNP was performed, sodium level was normal. No signs of central DI Urinalysis was performed which did not indicate any signs of infection Belladonna rectal suppository Hypertension, Norvasc 10 mg daily, Vasotec, clonidine as needed Hypokalemia Patient is on potassium replacement Monitor BMP as needed Alcohol and cocaine abuse dependence patient previously counseled. Status post thiamine Tobacco abuse Counseled on cessation Chronic hepatitis C, chronic Patient with chronic transaminitis liver ultrasound showed fatty infiltration Anxiety. Controlled Seroquel low-dose initiated on 05/27. Bowel regimen Justyna-Colace as needed DVT prophylaxis Sequential compression devices. Discharge Planning Patient has no funding for rehabilitation. business records manager is following up with [facility] regarding status of applications. Occupational therapy recommends shower bench, 3-1 bedside commode for discharge. PT recommends right AFO. Jaycob Rebolledo Aug 08, 2016 08:15
[2016-08-08 08:30] VITALS: BP 136/87; PULSE 74; RESP 20; TEMP 98.2; O2SAT 98
[2016-08-08] MEDS: POTASSIUM CHLORIDE 10 MEQ CONTROLLED RELEASE TAB PO SCH (08:48)
[2016-08-08] MEDS: GABAPENTIN 100 MG CAP PO SCH ×3 (08:48→17:44)
[2016-08-08] MEDS: FAMOTIDINE 20 MG TAB PO SCH ×2 (08:48→21:22)
[2016-08-08 19:15] VITALS: BP 138/87; PULSE 81; RESP 16; TEMP 99.1; O2SAT 100
[2016-08-08] MEDS: QUEtiapine FUMARATE 25 MG TAB PO SCH (21:22)
[2016-08-08] MEDS: BELLADONNA ALKALOIDS/OPIUM 60 MG SUPP RECTAL SCH (21:23)
[2016-08-09 05:19] LABS: AUTOMATED NEUTROPHIL # 5.8 TH/MM3 (1.8-7.7); BASOPHIL % 0.5 % (0.0-2.0); EOSINOPHIL # 0.2 TH/MM3 (0-0.4); EOSINOPHIL % 2.5 % (0.0-4.0); HEMATOCRIT 40.7 % (35.0-46.0); LYMPH % 29.2 % (9.0-44.0); LYMPHOCYTE # 2.8 TH/MM3 (1.0-4.8); MEAN CELL VOLUME 87.2 FL (80.0-100.0); MEAN CORPUSCULAR HEMOGLOBIN 29.2 PG (27.0-34.0); MEAN CORPUSCULAR HGB CONC 33.5 % (32.0-36.0); MONO % 8.2 % (0.0-8.0); NEUT % 59.6 % (16.0-70.0); PLATELET COUNT 276 TH/MM3 (150-450); RED BLOOD COUNT 4.67 MIL/MM3 (4.00-5.30); RED CELL DISTRIBUTION WIDTH 12.8 % (11.6-17.2); WHITE BLOOD COUNT 9.6 TH/MM3 (4.0-11.0)
[2016-08-09 05:28] LABS: HEMO FLAGS DIFF FINAL
[2016-08-09 05:29] LABS: POTASSIUM 3.7 MEQ/L (3.5-5.1)
[2016-08-09 05:32] LABS: BICARBONATE 26.5 MEQ/L (21.0-32.0); MAGNESIUM 1.8 MG/DL (1.5-2.5)
[2016-08-09 08:07] VITALS: BP 123/80; PULSE 75; RESP 16; TEMP 97.3; O2SAT 93
[2016-08-09] MEDS: GABAPENTIN 100 MG CAP PO SCH ×3 (08:26→17:02)
[2016-08-09] MEDS: POTASSIUM CHLORIDE 10 MEQ CONTROLLED RELEASE TAB PO SCH (08:26)
[2016-08-09] MEDS: FAMOTIDINE 20 MG TAB PO SCH ×2 (08:26→20:21)
--- NOTE | 2016-08-09 09:05 | HHI.PR ---
Subjective Remarks Patient seen and examined today. Patient denies any new complaints. No change in clinical status. Objective Vitals Vital Signs Date Time Temp Pulse Resp B/P Pulse Ox O2 Delivery O2 Flow Rate FiO2 08/09/16 08:07 97.3 75 16 123/80 93 08/08/16 19:15 99.1 81 16 138/87 100 I/O 08/08/16 08/08/16 08/08/16 08/09/16 08/09/16 08/09/16 07:00 15:00 23:00 07:00 15:00 23:00 Intake Total 120 ml 500 ml 240 ml Balance 120 ml 500 ml 240 ml Intake Oral 120 ml 500 ml 240 ml # Voids 1 3 3 # Bowel Movements 1 1 Result Diagram: 08/09/16 0434 08/09/16 0434 Objective Remarks GENERAL: Well-developed, well-nourished, in no acute distress. alert and orientated HEENT: Head is normocephalic without any lesions or masses noted right facial droop. NECK: Supple without any masses. Trachea midline no deviation. CARDIAC: Regular rhythm, regular rate. S1/S2 are heard. No murmurs gallops or rubs. LUNGS: Clear to auscultation bilaterally. No wheeze, rhonchi or rales. No use of accessory muscles on inspiration or expiration. ABDOMEN: Soft, nontender. Nondistended. Bowel sounds heard in all 4 quadrants. No organomegaly or masses. Negative rebound, negative guarding EXTREMITIES: No edema, pulses are equal bilaterally. No cyanosis or clubbing NEUROLOGY: Mood and affect appear appropriate. Dense right hemiparesis which appears to be improving in the lower extremity. Patient is able lift her right leg off the bed. However she is not able to move her foot, wiggle her toes. Her right upper extremity is still flaccid. Patient started getting contractures of the right lower extremity. 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 Venegas has evaluated the patient. The bleed has been stable on repeat head CT. No surgery needed. Speech therapy has been following the patient and last documented diet recommendation was 05/24/16 to indicate mechanical soft diet with thin liquids. As per continue speech therapy it would appear as if the patient has been refusing therapy for at least 90% of the time. We'll need to continue speech therapy until they indicate the patient no longer requires therapy Occupational therapy indicates OT at rehabilitation. Will need intensive occupational therapy evaluation until patient cleared by OT for discharge or patient's functional capacity can no longer improve Physical therapy indicating PT at rehabilitation. We'll need to continue intensive physical therapy, continue right AFO, Right arm pain, controlled Continue Neurontin for right arm neuropathic pain Dysuria, urinary frequency BNP was performed, sodium level was normal. No signs of central DI Urinalysis was performed which did not indicate any signs of infection Belladonna rectal suppository Hypertension, Norvasc 10 mg daily, Vasotec, clonidine as needed Hypokalemia Patient is on potassium replacement Monitor BMP as needed Alcohol and cocaine abuse dependence patient previously counseled. Status post thiamine Tobacco abuse Counseled on cessation Chronic hepatitis C, chronic Patient with chronic transaminitis liver ultrasound showed fatty infiltration Anxiety. Controlled Seroquel low-dose initiated on 05/27. Bowel regimen Justyna-Colace as needed DVT prophylaxis Sequential compression devices. Discharge Planning Patient has no funding for rehabilitation. hourly manager is following up with [facility] regarding status of applications. Occupational therapy recommends shower bench, 3-1 bedside commode for discharge. PT recommends right AFO. Jaycob Rebolledo Aug 09, 2016 09:05 Yohan Mendoza MD Aug 09, 2016 20:50
[2016-08-09 20:00] VITALS: BP 133/83; PULSE 81; RESP 16; TEMP 98.2; O2SAT 98
[2016-08-09] MEDS: QUEtiapine FUMARATE 25 MG TAB PO SCH (20:21)
[2016-08-09] MEDS: BELLADONNA ALKALOIDS/OPIUM 60 MG SUPP RECTAL SCH (20:21)
[2016-08-10 08:10] VITALS: BP 121/82; PULSE 73; RESP 18; TEMP 97.4; O2SAT 98
[2016-08-10] MEDS: FAMOTIDINE 20 MG TAB PO SCH ×2 (08:12→20:23)
[2016-08-10] MEDS: GABAPENTIN 100 MG CAP PO SCH ×2 (08:12→16:06)
[2016-08-10] MEDS: POTASSIUM CHLORIDE 10 MEQ CONTROLLED RELEASE TAB PO SCH (08:12)
--- NOTE | 2016-08-10 16:21 | HHI.PR ---
Subjective Remarks Late entry. Patient evaluated earlier this morning. Patient now only urinates once at night having good improvement with the belladonna. She reports some indigestion earlier. Denies any fevers, vomiting , or diarrhea. Objective Vitals Vital Signs Date Time Temp Pulse Resp B/P Pulse Ox O2 Delivery O2 Flow Rate FiO2 08/10/16 08:10 97.4 73 18 121/82 98 08/09/16 20:00 98.2 81 16 133/83 98 I/O 08/09/16 08/09/16 08/09/16 08/10/16 08/10/16 08/10/16 07:00 15:00 23:00 07:00 15:00 23:00 Intake Total 240 ml 700 ml 300 ml Balance 240 ml 700 ml 300 ml Intake Oral 240 ml 700 ml 300 ml # Voids 2 2 Result Diagram: 08/09/16 0434 08/09/16 0434 Objective Remarks GENERAL: Thin, chronically ill appearing patient in no apparent distress. SKIN: Warm and dry. HEAD: Normocephalic. CARDIOVASCULAR: Regular rate and rhythm. RESPIRATORY: Limited anterior exam. No accessory muscle use. Clear to auscultation. Breath sounds equal bilaterally. GASTROINTESTINAL: Normoactive bowel sounds 4 quadrants. Abdomen soft, nontender , nondistended. NEUROLOGICAL: Awake and alert. Normal speech. PSYCHIATRIC: Insight and judgment normal. 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 Venegas has evaluated the patient. The bleed has been stable on repeat head CT. No surgery needed. Speech therapy has been following the patient and last documented diet recommendation was 05/24/16 to indicate mechanical soft diet with thin liquids. As per continue speech therapy it would appear as if the patient has been refusing therapy for at least 90% of the time. We'll need to continue speech therapy until they indicate the patient no longer requires therapy Occupational therapy indicates OT at rehabilitation. Will need intensive occupational therapy evaluation until patient cleared by OT for discharge or patient's functional capacity can no longer improve Physical therapy indicating PT at rehabilitation. We'll need to continue intensive physical therapy, continue right AFO. Right arm pain, controlled Continue Neurontin for right arm neuropathic pain Increased urinary frequency: improved BNP was performed on 07/25, sodium level was normal. No signs of central DI. Urinalysis was again performed on 07/25 which did not indicate any signs of infection Monitor intake and output. Patient had increased urinary voids, but volume of urine output itself is wnl. Continue Belladonna suppository which has provided great improvement. Hypertension: Intermittent hypertension. BP wnl this morning. Norvasc 10 mg daily PRN clonidine and enalapril for SBP >160. Continue to monitor Alcohol and cocaine abuse dependence patient previously counseled. Status post thiamine Tobacco abuse Counseled on cessation Chronic hepatitis C, chronic Patient with chronic transaminitis liver ultrasound showed fatty infiltration Anxiety. Controlled Seroquel low-dose initiated on 05/27. GI prophylaxis: Justyna-colace as needed. Patient told to ask for prn dyspepsia medication, Maalox and TUMS. DVT prophylaxis Sequential compression devices. Discharge Planning Patient has no funding for rehabilitation. Denied SSI. Disability and Medicaid are pending. Occupational therapy recommends shower bench, 3-1 bedside commode for discharge. PT recommends right AFO. Elisabeth Church Aug 10, 2016 16:21
[2016-08-10 20:00] VITALS: BP 131/79; PULSE 83; RESP 18; TEMP 97.8; O2SAT 98
[2016-08-10] MEDS: QUEtiapine FUMARATE 25 MG TAB PO SCH (20:23)
[2016-08-10] MEDS: BELLADONNA ALKALOIDS/OPIUM 60 MG SUPP RECTAL SCH (20:23)
[2016-08-11 08:00] VITALS: BP 127/84; PULSE 75; RESP 18; TEMP 96.3; O2SAT 97
[2016-08-11] MEDS: POTASSIUM CHLORIDE 10 MEQ CONTROLLED RELEASE TAB PO SCH (08:11)
[2016-08-11] MEDS: GABAPENTIN 100 MG CAP PO SCH ×3 (08:11→17:26)
[2016-08-11] MEDS: FAMOTIDINE 20 MG TAB PO SCH ×2 (08:11→20:56)
--- NOTE | 2016-08-11 08:24 | HHI.PR ---
Subjective Remarks Patient seen and examined today. Patient denies any new complaints. No change in clinical status. Objective Vitals Vital Signs Date Time Temp Pulse Resp B/P Pulse Ox O2 Delivery O2 Flow Rate FiO2 08/10/16 20:00 97.8 83 18 131/79 98 I/O 08/10/16 08/10/16 08/10/16 08/11/16 08/11/16 08/11/16 07:00 15:00 23:00 07:00 15:00 23:00 Intake Total 300 ml 650 ml 200 ml Output Total 250 ml 250 ml Balance 300 ml 400 ml -50 ml Intake Oral 300 ml 650 ml 200 ml Output Urine Total 250 ml 250 ml # Voids 2 4 1 Result Diagram: 08/09/16 0434 08/09/16433 Objective Remarks GENERAL: Well-developed, well-nourished, in no acute distress. alert and orientated HEENT: Head is normocephalic without any lesions or masses noted right facial droop. NECK: Supple without any masses. Trachea midline no deviation. CARDIAC: Regular rhythm, regular rate. S1/S2 are heard. No murmurs gallops or rubs. LUNGS: Clear to auscultation bilaterally. No wheeze, rhonchi or rales. No use of accessory muscles on inspiration or expiration. ABDOMEN: Soft, nontender. Nondistended. Bowel sounds heard in all 4 quadrants. No organomegaly or masses. Negative rebound, negative guarding EXTREMITIES: No edema, pulses are equal bilaterally. No cyanosis or clubbing NEUROLOGY: Mood and affect appear appropriate. Dense right hemiparesis which appears to be improving in the lower extremity. Patient is able lift her right leg off the bed. However she is not able to move her foot, wiggle her toes. Her right upper extremity is still flaccid. Patient started getting contractures of the right lower extremity. 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 Venegas has evaluated the patient. The bleed has been stable on repeat head CT. No surgery needed. Speech therapy has been following the patient and last documented diet recommendation was 05/24/16 to indicate mechanical soft diet with thin liquids. As per continue speech therapy it would appear as if the patient has been refusing therapy for at least 90% of the time. We'll need to continue speech therapy until they indicate the patient no longer requires therapy Occupational therapy indicates OT at rehabilitation. Will need intensive occupational therapy evaluation until patient cleared by OT for discharge or patient's functional capacity can no longer improve Physical therapy indicating PT at rehabilitation. We'll need to continue intensive physical therapy, continue right AFO, Right arm pain, controlled Continue Neurontin for right arm neuropathic pain Dysuria, urinary frequency BNP was performed, sodium level was normal. No signs of central DI Urinalysis was performed which did not indicate any signs of infection Belladonna rectal suppository Hypertension, Norvasc 10 mg daily, Vasotec, clonidine as needed Hypokalemia Patient is on potassium replacement Monitor BMP as needed Alcohol and cocaine abuse dependence patient previously counseled. Status post thiamine Tobacco abuse Counseled on cessation Chronic hepatitis C, chronic Patient with chronic transaminitis liver ultrasound showed fatty infiltration Anxiety. Controlled Seroquel low-dose initiated on 05/27. Bowel regimen Justyna-Colace as needed DVT prophylaxis Sequential compression devices. Discharge Planning Patient has no funding for rehabilitation. laboratory manager is following up with [facility] regarding status of applications. Occupational therapy recommends shower bench, 3-1 bedside commode for discharge. PT recommends right AFO. Jaycob Rebolledo Aug 11, 2016 08:24 Jessica Garcia MD Aug 11, 2016 16:39
[2016-08-11 20:00] VITALS: BP 121/84; PULSE 79; RESP 20; TEMP 97.3; O2SAT 98
[2016-08-11] MEDS: BELLADONNA ALKALOIDS/OPIUM 60 MG SUPP RECTAL SCH (20:56)
[2016-08-11] MEDS: QUEtiapine FUMARATE 25 MG TAB PO SCH (20:56)
[2016-08-12 08:00] VITALS: BP 136/99; PULSE 74; RESP 20; TEMP 96.5; O2SAT 95
[2016-08-12] MEDS: FAMOTIDINE 20 MG TAB PO SCH ×2 (08:13→20:49)
[2016-08-12] MEDS: GABAPENTIN 100 MG CAP PO SCH ×3 (08:13→17:51)
[2016-08-12] MEDS: POTASSIUM CHLORIDE 10 MEQ CONTROLLED RELEASE TAB PO SCH (08:13)
--- NOTE | 2016-08-12 10:35 | HHI.PR ---
Subjective Remarks No acute complaints. No change in clinical status. Objective Vitals Vital Signs Date Time Temp Pulse Resp B/P Pulse Ox O2 Delivery O2 Flow Rate FiO2 08/12/16 08:00 96.5 74 20 136/99 95 08/11/16 20:00 97.3 79 20 121/84 98 I/O 08/11/16 08/11/16 08/11/16 08/12/16 08/12/16 08/12/16 07:00 15:00 23:00 07:00 15:00 23:00 Intake Total 200 ml 630 ml 930 ml 280 ml Output Total 250 ml Balance -50 ml 630 ml 930 ml 280 ml Intake Oral 200 ml 630 ml 930 ml 280 ml Output Urine Total 250 ml # Voids 1 2 1 # Bowel Movements 1 Result Diagram: 08/09/1643308/09/16433 Objective Remarks GENERAL: Thin, chronically ill appearing patient in no apparent distress. SKIN: Warm and dry. HEAD: Normocephalic. CARDIOVASCULAR: Regular rate and rhythm. RESPIRATORY: Limited anterior exam. No accessory muscle use. Clear to auscultation. Breath sounds equal bilaterally. GASTROINTESTINAL: Abdomen soft, nontender, nondistended. NEUROLOGICAL: Awake and alert. PSYCHIATRIC: Insight and judgment normal. 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 Venegas has evaluated the patient. The bleed has been stable on repeat head CT. No surgery needed. Speech therapy has been following the patient and last documented diet recommendation was 05/24/16 to indicate mechanical soft diet with thin liquids. As per continue speech therapy it would appear as if the patient has been refusing therapy for at least 90% of the time. We'll need to continue speech therapy until they indicate the patient no longer requires therapy Occupational therapy indicates OT at rehabilitation. Will need intensive occupational therapy evaluation until patient cleared by OT for discharge or patient's functional capacity can no longer improve Physical therapy indicating PT at rehabilitation. We'll need to continue intensive physical therapy, continue right AFO. Right arm pain, controlled Continue Neurontin for right arm neuropathic pain Increased urinary frequency: controlled BNP was performed on 07/25, sodium level was normal. No signs of central DI. Urinalysis was again performed on 07/25 which did not indicate any signs of infection Monitor intake and output. Patient had increased urinary voids, but volume of urine output itself is wnl. Continue Belladonna suppository which has provided great improvement. Hypertension: Intermittent hypertension. Norvasc 10 mg daily PRN clonidine and enalapril for SBP >160. Continue to monitor Alcohol and cocaine abuse dependence patient previously counseled. Status post thiamine Tobacco abuse Counseled on cessation Chronic hepatitis C, chronic Patient with chronic transaminitis liver ultrasound showed fatty infiltration Anxiety: controlled Seroquel low-dose initiated on 05/27. GI prophylaxis: Justyna-colace as needed. Patient told to ask for prn dyspepsia medication, Maalox and TUMS. DVT prophylaxis Sequential compression devices. Discharge Planning Patient has no funding for rehabilitation. Denied SSI. Disability and Medicaid are pending. Occupational therapy recommends shower bench, 3-1 bedside commode for discharge. PT recommends right AFO. Elisabeth Church Aug 12, 2016 10:35 Jessica Garcia MD Aug 12, 2016 16:22
[2016-08-12 20:00] VITALS: BP 126/87; PULSE 85; RESP 20; TEMP 97.3; O2SAT 96
[2016-08-12] MEDS: BELLADONNA ALKALOIDS/OPIUM 60 MG SUPP RECTAL SCH (20:48)
[2016-08-12] MEDS: QUEtiapine FUMARATE 25 MG TAB PO SCH (20:49)
[2016-08-13 08:00] VITALS: BP 113/64; PULSE 78; RESP 18; TEMP 97.4; O2SAT 96
[2016-08-13] MEDS: POTASSIUM CHLORIDE 10 MEQ CONTROLLED RELEASE TAB PO SCH (08:14)
[2016-08-13] MEDS: FAMOTIDINE 20 MG TAB PO SCH ×2 (08:14→20:43)
[2016-08-13] MEDS: GABAPENTIN 100 MG CAP PO SCH ×3 (08:14→18:00)
--- NOTE | 2016-08-13 10:28 | HHI.PR ---
Subjective Remarks No acute complaints. Objective Vitals Vital Signs Date Time Temp Pulse Resp B/P Pulse Ox O2 Delivery O2 Flow Rate FiO2 08/13/16 08:00 97.4 78 18 113/64 96 08/12/16 20:00 97.3 85 20 126/87 96 I/O 08/12/16 08/12/16 08/12/16 08/13/16 08/13/16 08/13/16 07:00 15:00 23:00 07:00 15:00 23:00 Intake Total 280 ml 840 ml 690 ml 280 ml Balance 280 ml 840 ml 690 ml 280 ml Intake Oral 280 ml 840 ml 690 ml 280 ml # Voids 1 3 2 2 Result Diagram: 08/09/1643308/09/16433 Objective Remarks GENERAL: Thin, chronically ill appearing patient in no apparent distress. SKIN: Warm and dry. HEAD: Normocephalic. EYES: Equivocal scleral icterus. CARDIOVASCULAR: Regular rate and rhythm. RESPIRATORY: Limited anterior exam. No accessory muscle use. Clear to auscultation. Breath sounds equal bilaterally. GASTROINTESTINAL: Abdomen soft, nondistended. No hepatomegaly. Patient states LUQ is sore, but has no significant pain with deep palpation. NEUROLOGICAL: Awake and alert. PSYCHIATRIC: Insight and judgment normal. 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 Venegas has evaluated the patient. The bleed has been stable on repeat head CT. No surgery needed. Speech therapy has been following the patient and last documented diet recommendation was 05/24/16 to indicate mechanical soft diet with thin liquids. As per continue speech therapy it would appear as if the patient has been refusing therapy for at least 90% of the time. We'll need to continue speech therapy until they indicate the patient no longer requires therapy Occupational therapy indicates OT at rehabilitation. Will need intensive occupational therapy evaluation until patient cleared by OT for discharge or patient's functional capacity can no longer improve Physical therapy indicating PT at rehabilitation. We'll need to continue intensive physical therapy, continue right AFO. Right arm pain, controlled Continue Neurontin for right arm neuropathic pain Increased urinary frequency: controlled BNP was performed on 07/25, sodium level was normal. No signs of central DI. Urinalysis was again performed on 07/25 which did not indicate any signs of infection Monitor intake and output. Patient had increased urinary voids, but volume of urine output itself is wnl. Continue Belladonna suppository which has provided great improvement. Hypertension: Intermittent hypertension. Norvasc 10 mg daily PRN clonidine and enalapril for SBP >160. Continue to monitor Alcohol and cocaine abuse dependence patient previously counseled. Status post thiamine Tobacco abuse Counseled on cessation Chronic hepatitis C, chronic Patient with chronic transaminitis liver ultrasound showed fatty infiltration questionable scleral icterus on exam today. New LFTs obtained with AST/ALT of 118/224 but bilirubin levels normal. No RUQ pain. Will monitor. Anxiety: controlled Seroquel low-dose initiated on 05/27. GI prophylaxis: Justyna-colace as needed. Patient told to ask for prn dyspepsia medication, Maalox and TUMS. DVT prophylaxis Sequential compression devices. Discharge Planning Patient has no funding for rehabilitation. Denied SSI. Disability and Medicaid are pending. Occupational therapy recommends shower bench, 3-1 bedside commode for discharge. PT recommends right AFO. Elisabeth Church Aug 13, 2016 10:27
[2016-08-13 15:16] LABS: INDIRECT BILIRUBIN 0.1 MG/DL (0.0-0.8); TOTAL BILIRUBIN ADULT 0.2 MG/DL (0.2-1.0)
[2016-08-13 20:00] VITALS: BP 151/90; PULSE 92; RESP 18; TEMP 97.2; O2SAT 99
[2016-08-13] MEDS: BELLADONNA ALKALOIDS/OPIUM 60 MG SUPP RECTAL SCH (20:43)
[2016-08-13] MEDS: QUEtiapine FUMARATE 25 MG TAB PO SCH (20:43)
[2016-08-14 08:00] VITALS: BP 125/76; PULSE 72; RESP 16; TEMP 97.6; O2SAT 97
[2016-08-14] MEDS: FAMOTIDINE 20 MG TAB PO SCH ×2 (08:31→20:49)
[2016-08-14] MEDS: POTASSIUM CHLORIDE 10 MEQ CONTROLLED RELEASE TAB PO SCH (08:31)
[2016-08-14] MEDS: GABAPENTIN 100 MG CAP PO SCH ×3 (08:31→16:43)
--- NOTE | 2016-08-14 08:48 | HHI.PR ---
Subjective Remarks No acute complaints. Objective Vitals Vital Signs Date Time Temp Pulse Resp B/P Pulse Ox O2 Delivery O2 Flow Rate FiO2 08/13/16 20:00 97.2 92 18 151/90 99 I/O 08/13/16 08/13/16 08/13/16 08/14/16 08/14/16 08/14/16 06:59 14:59 22:59 06:59 14:59 22:59 Intake Total 280 ml 1050 ml 250 ml Output Total 451 ml Balance 280 ml 599 ml 250 ml Intake Oral 280 ml 1050 ml 250 ml Output Urine Total 450 ml Stool Total 1 ml # Voids 2 4 3 Objective Remarks GENERAL: Thin, chronically ill appearing patient in no apparent distress. SKIN: Warm and dry. HEAD: Normocephalic. CARDIOVASCULAR: Regular rate and rhythm. RESPIRATORY: Limited anterior exam. No accessory muscle use. Clear to auscultation. Breath sounds equal bilaterally. GASTROINTESTINAL: Normoactive bowel sounds. Abdomen soft, non-tender, nondistended. No hepatomegaly. NEUROLOGICAL: Awake and alert. Immobile R arm. PSYCHIATRIC: Insight and judgment normal. 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 Venegas has evaluated the patient. The bleed has been stable on repeat head CT. No surgery needed. Speech therapy has been following the patient and last documented diet recommendation was 05/24/16 to indicate mechanical soft diet with thin liquids. As per continue speech therapy it would appear as if the patient has been refusing therapy for at least 90% of the time. We'll need to continue speech therapy until they indicate the patient no longer requires therapy Occupational therapy indicates OT at rehabilitation. Will need intensive occupational therapy evaluation until patient cleared by OT for discharge or patient's functional capacity can no longer improve Physical therapy indicating PT at rehabilitation. We'll need to continue intensive physical therapy, continue right AFO. Physical therapist informed me yesterday that the patient has been having muscle spasms. She will be started on Norflex bid prn. Will avoid Flexeril due to liver issues. Monitor for [employer]RE[employer] side effects due to concurrent use of Seroquel and gabapentin. Right arm pain, controlled Continue Neurontin for right arm neuropathic pain Increased urinary frequency: controlled BNP was performed on 07/25, sodium level was normal. No signs of central DI. Urinalysis was again performed on 07/25 which did not indicate any signs of infection Monitor intake and output. Patient had increased urinary voids, but volume of urine output itself is wnl. Continue Belladonna suppository which has provided great improvement. Hypertension: Intermittent hypertension. Norvasc 10 mg daily PRN clonidine and enalapril for SBP >160. Continue to monitor Alcohol and cocaine abuse dependence patient previously counseled. Status post thiamine Tobacco abuse Counseled on cessation Chronic hepatitis C, chronic Patient with chronic transaminitis Liver ultrasound showed fatty infiltration questionable scleral icterus on exam yesterday. New LFTs obtained with AST/ALT of 118/224 but bilirubin levels normal. No abdominal pain on exam today. Monitor. Anxiety: controlled Seroquel low-dose initiated on 05/27. GI prophylaxis: Justyna-colace as needed. Patient told to ask for prn dyspepsia medication, Maalox and TUMS. DVT prophylaxis Sequential compression devices. Discharge Planning Patient has no funding for rehabilitation. Denied SSI. Disability and Medicaid are pending. Occupational therapy recommends shower bench, 3-1 bedside commode for discharge. PT recommends right AFO. Elisabeth Church Aug 14, 2016 08:47 Jessica Garcia MD Aug 14, 2016 16:13
[2016-08-14 20:30] VITALS: BP 127/78; PULSE 83; RESP 18; TEMP 96.9; O2SAT 94
[2016-08-14] MEDS: QUEtiapine FUMARATE 25 MG TAB PO SCH (20:49)
[2016-08-14] MEDS: BELLADONNA ALKALOIDS/OPIUM 60 MG SUPP RECTAL SCH (20:49)
[2016-08-14] MEDS: ORPHENADRINE CITRATE 100 MG SUSTAINED RELEASE TAB PO PRN (20:52)
[2016-08-15 08:00] VITALS: BP 122/77; PULSE 78; RESP 20; TEMP 98.7; O2SAT 92
[2016-08-15] MEDS: POTASSIUM CHLORIDE 10 MEQ CONTROLLED RELEASE TAB PO SCH (08:31)
[2016-08-15] MEDS: GABAPENTIN 100 MG CAP PO SCH ×3 (08:31→17:43)
[2016-08-15] MEDS: FAMOTIDINE 20 MG TAB PO SCH ×2 (08:31→20:51)
--- NOTE | 2016-08-15 09:40 | HHI.PR ---
Subjective Remarks No acute complaints. No change in clinical status. Objective Vitals Vital Signs Date Time Temp Pulse Resp B/P Pulse Ox O2 Delivery O2 Flow Rate FiO2 08/15/16 08:00 98.7 78 20 122/77 92 08/14/16 20:30 96.9 83 18 127/78 94 I/O 08/14/16 08/14/16 08/14/16 08/15/16 08/15/16 08/15/16 07:00 15:00 23:00 07:00 15:00 23:00 Intake Total 250 ml 1450 ml 300 ml Balance 250 ml 1450 ml 300 ml Intake Oral 250 ml 1450 ml 300 ml # Voids 3 8 2 Objective Remarks GENERAL: Thin, chronically ill appearing patient in no apparent distress. SKIN: Warm and dry. HEAD: Normocephalic. CARDIOVASCULAR: Regular rate and rhythm. RESPIRATORY: Limited anterior exam. No accessory muscle use. Clear to auscultation. Breath sounds equal bilaterally. GASTROINTESTINAL: Abdomen soft, non-tender, nondistended. NEUROLOGICAL: Awake and alert. Immobile R arm. PSYCHIATRIC: Insight and judgment normal. 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 Venegas has evaluated the patient. The bleed has been stable on repeat head CT. No surgery needed. Speech therapy has been following the patient and last documented diet recommendation was 05/24/16 to indicate mechanical soft diet with thin liquids. As per continue speech therapy it would appear as if the patient has been refusing therapy for at least 90% of the time. We'll need to continue speech therapy until they indicate the patient no longer requires therapy Occupational therapy indicates OT at rehabilitation. Will need intensive occupational therapy evaluation until patient cleared by OT for discharge or patient's functional capacity can no longer improve Physical therapy indicating PT at rehabilitation. We'll need to continue intensive physical therapy, continue right AFO. Physical therapist informed me that the patient has been having muscle spasms. She was started on Norflex bid prn on 08/14/16. Will avoid Flexeril due to liver issues. 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 Right arm pain, controlled Continue Neurontin for right arm neuropathic pain Increased urinary frequency: controlled BNP was performed on 07/25, sodium level was normal. No signs of central DI. Urinalysis was again performed on 07/25 which did not indicate any signs of infection Monitor intake and output. Patient had increased urinary voids, but volume of urine output itself is wnl. Continue Belladonna suppository which has provided great improvement. Hypertension: Intermittent hypertension. Norvasc 10 mg daily PRN clonidine and enalapril for SBP >160. Continue to monitor Alcohol and cocaine abuse dependence patient previously counseled. Status post thiamine Tobacco abuse Counseled on cessation Chronic hepatitis C, chronic Patient with chronic transaminitis Liver ultrasound showed fatty infiltration questionable scleral icterus on exam yesterday. New LFTs obtained with AST/ALT of 118/224 but bilirubin levels normal. No abdominal pain on exam today. Monitor. Anxiety: controlled Seroquel low-dose initiated on 05/27. GI prophylaxis: Justyna-colace as needed. Patient told to ask for prn dyspepsia medication, Maalox and TUMS. DVT prophylaxis Sequential compression devices. Discharge Planning Patient has no funding for rehabilitation. Denied SSI. Disability and Medicaid are pending. Occupational therapy recommends shower bench, 3-1 bedside commode for discharge. PT recommends right AFO. Elisabeth Church Aug 15, 2016 09:40
[2016-08-15 20:00] VITALS: BP 103/68; PULSE 82; RESP 18; TEMP 97.4; O2SAT 96
[2016-08-15] MEDS: QUEtiapine FUMARATE 25 MG TAB PO SCH (20:51)
[2016-08-15] MEDS: BELLADONNA ALKALOIDS/OPIUM 60 MG SUPP RECTAL SCH (20:51)
[2016-08-15] MEDS: ORPHENADRINE CITRATE 100 MG SUSTAINED RELEASE TAB PO PRN (20:54)
[2016-08-16 05:40] LABS: INDIRECT BILIRUBIN 0.2 MG/DL (0.0-0.8); TOTAL BILIRUBIN ADULT 0.3 MG/DL (0.2-1.0)
[2016-08-16 08:26] VITALS: BP 113/78; PULSE 79; RESP 18; TEMP 97.6; O2SAT 96
[2016-08-16] MEDS: FAMOTIDINE 20 MG TAB PO SCH ×2 (08:35→20:25)
[2016-08-16] MEDS: POTASSIUM CHLORIDE 10 MEQ CONTROLLED RELEASE TAB PO SCH (08:35)
[2016-08-16] MEDS: GABAPENTIN 100 MG CAP PO SCH ×3 (08:35→17:21)
--- NOTE | 2016-08-16 09:54 | HHI.PR ---
Subjective Remarks No acute complaints. No change in clinical status. Objective Vitals Vital Signs Date Time Temp Pulse Resp B/P Pulse Ox O2 Delivery O2 Flow Rate FiO2 08/16/16 08:26 97.6 79 18 113/78 96 08/15/16 20:00 97.4 82 18 103/68 96 I/O 08/15/16 08/15/16 08/15/16 08/16/16 08/16/16 08/16/16 07:00 15:00 23:00 07:00 15:00 23:00 Intake Total 300 ml 690 ml 690 ml 200 ml Balance 300 ml 690 ml 690 ml 200 ml Intake Oral 300 ml 690 ml 690 ml 200 ml # Voids 2 4 7 1 Objective Remarks GENERAL: Thin, chronically ill appearing patient in no apparent distress. SKIN: Warm and dry. HEAD: Normocephalic. CARDIOVASCULAR: Regular rate and rhythm. RESPIRATORY: Limited anterior exam. No accessory muscle use. Clear to auscultation. Breath sounds equal bilaterally. GASTROINTESTINAL: Abdomen soft, non-tender, nondistended. NEUROLOGICAL: Awake and alert. PSYCHIATRIC: Insight and judgment normal. 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 Venegas has evaluated the patient. The bleed has been stable on repeat head CT. No surgery needed. Speech therapy has been following the patient and last documented diet recommendation was 05/24/16 to indicate mechanical soft diet with thin liquids. As per continue speech therapy it would appear as if the patient has been refusing therapy for at least 90% of the time. We'll need to continue speech therapy until they indicate the patient no longer requires therapy Occupational therapy indicates OT at rehabilitation. Will need intensive occupational therapy evaluation until patient cleared by OT for discharge or patient's functional capacity can no longer improve Physical therapy indicating PT at rehabilitation. We'll need to continue intensive physical therapy, continue right AFO. Physical therapist informed me that the patient has been having muscle spasms. She was started on Norflex bid prn on 08/14/16. Will avoid Flexeril due to liver issues. 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 Right arm pain, controlled Continue Neurontin for right arm neuropathic pain Increased urinary frequency: controlled BNP was performed on 07/25, sodium level was normal. No signs of central DI. Urinalysis was again performed on 07/25 which did not indicate any signs of infection Monitor intake and output. Patient had increased urinary voids, but volume of urine output itself is wnl. Continue Belladonna suppository which has provided great improvement. Hypertension: Intermittent hypertension, currently controlled. Norvasc 10 mg daily PRN clonidine and enalapril for SBP >160. Continue to monitor Alcohol and cocaine abuse dependence patient previously counseled. Status post thiamine Tobacco abuse Counseled on cessation Chronic hepatitis C, chronic Patient with chronic transaminitis Liver ultrasound showed fatty infiltration questionable scleral icterus on 08/13 exam. New LFTs obtained with AST/ALT of 118/224 but bilirubin levels normal. Repeat labs today stable with AST 126 and ALT 226. Bilirubin levels again normal. No abdominal pain today. Monitor intermittently of if symptoms arise. Anxiety: controlled Seroquel low-dose initiated on 05/27. GI prophylaxis: Justyna-colace as needed. Patient told to ask for prn dyspepsia medication, Maalox and TUMS. DVT prophylaxis Sequential compression devices. Discharge Planning Patient has no funding for rehabilitation. Denied SSI. Disability and Medicaid are pending. Occupational therapy recommends shower bench, 3-1 bedside commode for discharge. PT recommends right AFO. Elisabeth Church Aug 16, 2016 09:54
[2016-08-16 20:00] VITALS: BP 128/81; PULSE 77; RESP 18; TEMP 99; O2SAT 96
[2016-08-16] MEDS: BELLADONNA ALKALOIDS/OPIUM 60 MG SUPP RECTAL SCH (20:24)
[2016-08-16] MEDS: QUEtiapine FUMARATE 25 MG TAB PO SCH (20:25)
[2016-08-16] MEDS: ORPHENADRINE CITRATE 100 MG SUSTAINED RELEASE TAB PO PRN (20:25)
[2016-08-17 08:00] VITALS: BP 116/70; PULSE 80; RESP 18; TEMP 97.3; O2SAT 96
[2016-08-17] MEDS: POTASSIUM CHLORIDE 10 MEQ CONTROLLED RELEASE TAB PO SCH (08:44)
[2016-08-17] MEDS: GABAPENTIN 100 MG CAP PO SCH ×3 (08:44→17:39)
[2016-08-17] MEDS: FAMOTIDINE 20 MG TAB PO SCH ×2 (08:44→20:54)
--- NOTE | 2016-08-17 08:59 | HHI.PR ---
Subjective Remarks Patient seen and examined today. Patient denies any new complaints. No change in clinical status. Objective Vitals Vital Signs Date Time Temp Pulse Resp B/P Pulse Ox O2 Delivery O2 Flow Rate FiO2 08/16/16 20:00 99.0 77 18 128/81 96 I/O 08/16/16 08/16/16 08/16/16 08/17/16 08/17/16 08/17/16 07:00 15:00 23:00 07:00 15:00 23:00 Intake Total 200 ml 520 ml 480 ml Balance 200 ml 520 ml 480 ml Intake Oral 200 ml 520 ml 480 ml # Voids 1 1 2 2 # Bowel Movements 1 Objective Remarks GENERAL: Well-developed, well-nourished, in no acute distress. alert and orientated HEENT: Head is normocephalic without any lesions or masses noted right facial droop. NECK: Supple without any masses. Trachea midline no deviation. CARDIAC: Regular rhythm, regular rate. S1/S2 are heard. No murmurs gallops or rubs. LUNGS: Clear to auscultation bilaterally. No wheeze, rhonchi or rales. No use of accessory muscles on inspiration or expiration. ABDOMEN: Soft, nontender. Nondistended. Bowel sounds heard in all 4 quadrants. No organomegaly or masses. Negative rebound, negative guarding EXTREMITIES: No edema, pulses are equal bilaterally. No cyanosis or clubbing NEUROLOGY: Mood and affect appear appropriate. Dense right hemiparesis which appears to be improving in the lower extremity. Patient is able lift her right leg off the bed. However she is not able to move her foot, wiggle her toes. Her right upper extremity is still flaccid. Patient started getting contractures of the right lower extremity. 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 Venegas has evaluated the patient. The bleed has been stable on repeat head CT. No surgery needed. Speech therapy has been following the patient and last documented diet recommendation was 05/24/16 to indicate mechanical soft diet with thin liquids. As per continue speech therapy it would appear as if the patient has been refusing therapy for at least 90% of the time. We'll need to continue speech therapy until they indicate the patient no longer requires therapy Occupational therapy indicates OT at rehabilitation. Will need intensive occupational therapy evaluation until patient cleared by OT for discharge or patient's functional capacity can no longer improve Physical therapy indicating PT at rehabilitation. We'll need to continue intensive physical therapy, continue right AFO, Patient started on Norflex for muscle spasms Right arm pain, controlled Continue Neurontin for right arm neuropathic pain Dysuria, urinary frequency BNP was performed, sodium level was normal. No signs of central DI Urinalysis was performed which did not indicate any signs of infection Belladonna rectal suppository Hypertension, Norvasc 10 mg daily, Vasotec, clonidine as needed Hypokalemia Patient is on potassium replacement Monitor BMP as needed Alcohol and cocaine abuse dependence patient previously counseled. Status post thiamine Tobacco abuse Counseled on cessation Chronic hepatitis C, chronic Patient with chronic transaminitis liver ultrasound showed fatty infiltration Anxiety. Controlled Seroquel low-dose initiated on 05/27. Bowel regimen Justyna-Colace as needed DVT prophylaxis Sequential compression devices. Discharge Planning Patient has no funding for rehabilitation. Patient was denied SSI. gravity manager is following up with [facility] regarding status of applications. Occupational therapy recommends shower bench, 3-1 bedside commode for discharge. PT recommends right AFO. 08/16, case management spoke with patient's mother who states that she'll assist in discharge planning. Call placed to the [facility] in [place] Aug 17, 2016 08:59
[2016-08-17 20:00] VITALS: BP 124/66; PULSE 79; RESP 18; TEMP 97.6; O2SAT 97
[2016-08-17] MEDS: QUEtiapine FUMARATE 25 MG TAB PO SCH (20:53)
[2016-08-17] MEDS: ORPHENADRINE CITRATE 100 MG SUSTAINED RELEASE TAB PO PRN (20:53)
[2016-08-17] MEDS: BELLADONNA ALKALOIDS/OPIUM 60 MG SUPP RECTAL SCH (20:53)
[2016-08-18 08:00] VITALS: BP 106/73; PULSE 79; RESP 16; TEMP 98.5; O2SAT 95
--- NOTE | 2016-08-18 08:30 | HHI.PR ---
Subjective Remarks Patient seen and examined today. Patient denies any new complaints. No change in clinical status. Objective Vitals Vital Signs Date Time Temp Pulse Resp B/P Pulse Ox O2 Delivery O2 Flow Rate FiO2 08/17/16 20:00 97.6 79 18 124/66 97 I/O 08/17/16 08/17/16 08/17/16 08/18/16 08/18/16 08/18/16 07:00 15:00 23:00 07:00 15:00 23:00 Intake Total 480 ml 1300 ml 300 ml Balance 480 ml 1300 ml 300 ml Intake Oral 480 ml 1300 ml 300 ml # Voids 2 8 3 Objective Remarks GENERAL: Well-developed, well-nourished, in no acute distress. alert and orientated HEENT: Head is normocephalic without any lesions or masses noted right facial droop. NECK: Supple without any masses. Trachea midline no deviation. CARDIAC: Regular rhythm, regular rate. S1/S2 are heard. No murmurs gallops or rubs. LUNGS: Clear to auscultation bilaterally. No wheeze, rhonchi or rales. No use of accessory muscles on inspiration or expiration. ABDOMEN: Soft, nontender. Nondistended. Bowel sounds heard in all 4 quadrants. No organomegaly or masses. Negative rebound, negative guarding EXTREMITIES: No edema, pulses are equal bilaterally. No cyanosis or clubbing NEUROLOGY: Mood and affect appear appropriate. Dense right hemiparesis which appears to be improving in the lower extremity. Patient is able lift her right leg off the bed. However she is not able to move her foot, wiggle her toes. Her right upper extremity is still flaccid. Patient started getting contractures of the right lower extremity. 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 Venegas has evaluated the patient. The bleed has been stable on repeat head CT. No surgery needed. Speech therapy has been following the patient and last documented diet recommendation was 05/24/16 to indicate mechanical soft diet with thin liquids. As per continue speech therapy it would appear as if the patient has been refusing therapy for at least 90% of the time. We'll need to continue speech therapy until they indicate the patient no longer requires therapy Occupational therapy indicates OT at rehabilitation. Will need intensive occupational therapy evaluation until patient cleared by OT for discharge or patient's functional capacity can no longer improve Physical therapy indicating PT at rehabilitation. We'll need to continue intensive physical therapy, continue right AFO, Patient started on Norflex for muscle spasms Right arm pain, controlled Continue Neurontin for right arm neuropathic pain Dysuria, urinary frequency BNP was performed, sodium level was normal. No signs of central DI Urinalysis was performed which did not indicate any signs of infection Belladonna rectal suppository Hypertension, Norvasc 10 mg daily, Vasotec, clonidine as needed Hypokalemia Patient is on potassium replacement Monitor BMP as needed Alcohol and cocaine abuse dependence patient previously counseled. Status post thiamine Tobacco abuse Counseled on cessation Chronic hepatitis C, chronic Patient with chronic transaminitis liver ultrasound showed fatty infiltration Anxiety. Controlled Seroquel low-dose initiated on 05/27. Bowel regimen Justyna-Colace as needed DVT prophylaxis Sequential compression devices. Discharge Planning Patient has no funding for rehabilitation. Patient was denied SSI. engineering project manager is following up with [facility] regarding status of applications. Occupational therapy recommends shower bench, 3-1 bedside commode for discharge. PT recommends right AFO. 08/16, case management spoke with patient's mother who states that she'll assist in discharge planning. [place] decision from [place] [facility] [place] Aug 18, 2016 08:30
[2016-08-18] MEDS: FAMOTIDINE 20 MG TAB PO SCH ×2 (08:55→20:57)
[2016-08-18] MEDS: POTASSIUM CHLORIDE 10 MEQ CONTROLLED RELEASE TAB PO SCH (08:55)
[2016-08-18] MEDS: GABAPENTIN 100 MG CAP PO SCH ×3 (08:55→19:56)
[2016-08-18 20:00] VITALS: BP 113/69; PULSE 86; RESP 19; TEMP 98.2; O2SAT 97
[2016-08-18] MEDS: QUEtiapine FUMARATE 25 MG TAB PO SCH (20:56)
[2016-08-18] MEDS: BELLADONNA ALKALOIDS/OPIUM 60 MG SUPP RECTAL SCH (20:58)
[2016-08-19 08:00] VITALS: BP 118/71; PULSE 74; RESP 15; TEMP 98.2; O2SAT 97
[2016-08-19] MEDS: GABAPENTIN 100 MG CAP PO SCH ×3 (09:09→18:00)
[2016-08-19] MEDS: POTASSIUM CHLORIDE 10 MEQ CONTROLLED RELEASE TAB PO SCH (09:09)
[2016-08-19] MEDS: FAMOTIDINE 20 MG TAB PO SCH ×2 (09:09→20:26)
--- NOTE | 2016-08-19 09:13 | HHI.PR ---
Subjective Remarks Patient seen and examined today. Patient denies any new complaints. No change in clinical status Objective Vitals Vital Signs Date Time Temp Pulse Resp B/P Pulse Ox O2 Delivery O2 Flow Rate FiO2 08/18/16 20:00 98.2 86 19 113/69 97 I/O 08/18/16 08/18/16 08/18/16 08/19/16 08/19/16 08/19/16 07:00 15:00 23:00 07:00 15:00 23:00 Intake Total 300 ml 600 ml 480 ml 480 ml Output Total 700 ml Balance 300 ml 600 ml -220 ml 480 ml Intake Oral 300 ml 600 ml 480 ml 480 ml Output Urine Total 700 ml # Voids 3 4 2 3 # Bowel Movements 0 0 Objective Remarks GENERAL: Well-developed, well-nourished, in no acute distress. alert and orientated HEENT: Head is normocephalic without any lesions or masses noted right facial droop. NECK: Supple without any masses. Trachea midline no deviation. CARDIAC: Regular rhythm, regular rate. S1/S2 are heard. No murmurs gallops or rubs. LUNGS: Clear to auscultation bilaterally. No wheeze, rhonchi or rales. No use of accessory muscles on inspiration or expiration. ABDOMEN: Soft, nontender. Nondistended. Bowel sounds heard in all 4 quadrants. No organomegaly or masses. Negative rebound, negative guarding EXTREMITIES: No edema, pulses are equal bilaterally. No cyanosis or clubbing NEUROLOGY: Mood and affect appear appropriate. Dense right hemiparesis which appears to be improving in the lower extremity. Patient is able lift her right leg off the bed. However she is not able to move her foot, wiggle her toes. Her right upper extremity is still flaccid. Patient started getting contractures of the right lower extremity. 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 Venegas has evaluated the patient. The bleed has been stable on repeat head CT. No surgery needed. Speech therapy has been following the patient and last documented diet recommendation was 05/24/16 to indicate mechanical soft diet with thin liquids. As per continue speech therapy it would appear as if the patient has been refusing therapy for at least 90% of the time. We'll need to continue speech therapy until they indicate the patient no longer requires therapy Occupational therapy indicates OT at rehabilitation. Will need intensive occupational therapy evaluation until patient cleared by OT for discharge or patient's functional capacity can no longer improve Physical therapy indicating PT at rehabilitation. We'll need to continue intensive physical therapy, continue right AFO, Norflex for muscle spasms Right arm pain, controlled Continue Neurontin for right arm neuropathic pain Dysuria, urinary frequency BNP was performed, sodium level was normal. No signs of central DI Urinalysis was performed which did not indicate any signs of infection Belladonna rectal suppository Hypertension, systolic blood pressure [id number] Norvasc 10 mg daily, reduce to 5 mg daily Vasotec, clonidine as needed Hypokalemia Patient is on potassium replacement Monitor BMP as needed Alcohol and cocaine abuse dependence patient previously counseled. Status post thiamine Tobacco abuse Counseled on cessation Chronic hepatitis C, chronic Patient with chronic transaminitis continue to follow liver ultrasound showed fatty infiltration Anxiety. Controlled Seroquel low-dose initiated on 05/27. Bowel regimen Justyna-Colace as needed DVT prophylaxis Sequential compression devices. Discharge Planning Patient has no funding for rehabilitation. Patient was denied SSI. crisis manager is following up with [facility] regarding status of applications. Occupational therapy recommends shower bench, 3-1 bedside commode for discharge. PT recommends right AFO. 08/16, case management spoke with patient's mother who states that she'll assist in discharge planning. Awaiting decision from the [facility] in [place] Aug 19, 2016 09:13
[2016-08-19 20:15] VITALS: BP 142/83; PULSE 79; RESP 18; TEMP 98.4; O2SAT 94
[2016-08-19] MEDS: QUEtiapine FUMARATE 25 MG TAB PO SCH (20:27)
[2016-08-19] MEDS: BELLADONNA ALKALOIDS/OPIUM 60 MG SUPP RECTAL SCH (20:27)
[2016-08-20 05:29] LABS: CHLORIDE 102 MEQ/L (98-107); POTASSIUM 4.1 MEQ/L (3.5-5.1); SODIUM (NA) 138 MEQ/L (136-145)
[2016-08-20 05:35] LABS: ANION GAP 8 MEQ/L (5-15); BICARBONATE 28.5 MEQ/L (21.0-32.0); BLOOD UREA NITROGEN 24 MG/DL (7-18)
[2016-08-20 05:38] LABS: ALT (GPT) 230 U/L (10-53); AST (GOT) 109 U/L (15-37); GLOMERULAR FILTRATION RATE 88 ML/MIN (>89)
[2016-08-20 05:39] LABS: TOTAL BILIRUBIN ADULT 0.3 MG/DL (0.2-1.0)
[2016-08-20 05:41] LABS: ALKALINE PHOSPHATASE 94 U/L (45-117)
--- NOTE | 2016-08-20 08:42 | HHI.PR ---
Subjective Remarks Patient seen and examined today. Patient denies any new complaints. No change in clinical status. Objective Vitals Vital Signs Date Time Temp Pulse Resp B/P Pulse Ox O2 Delivery O2 Flow Rate FiO2 08/19/16 20:15 98.4 79 18 142/83 94 I/O 08/19/16 08/19/16 08/19/16 08/20/16 08/20/16 08/20/16 07:00 15:00 23:00 07:00 15:00 23:00 Intake Total 480 ml 360 ml 1560 ml 550 ml Balance 480 ml 360 ml 1560 ml 550 ml Intake Oral 480 ml 360 ml 1560 ml 550 ml # Voids 3 2 8 3 # Bowel Movements 0 0 0 Result Diagram: 08/20/16 0445 Objective Remarks GENERAL: Well-developed, well-nourished, in no acute distress. alert and orientated HEENT: Head is normocephalic without any lesions or masses noted right facial droop. NECK: Supple without any masses. Trachea midline no deviation. CARDIAC: Regular rhythm, regular rate. S1/S2 are heard. No murmurs gallops or rubs. LUNGS: Clear to auscultation bilaterally. No wheeze, rhonchi or rales. No use of accessory muscles on inspiration or expiration. ABDOMEN: Soft, nontender. Nondistended. Bowel sounds heard in all 4 quadrants. No organomegaly or masses. Negative rebound, negative guarding EXTREMITIES: No edema, pulses are equal bilaterally. No cyanosis or clubbing NEUROLOGY: Mood and affect appear appropriate. Dense right hemiparesis which appears to be improving in the lower extremity. Patient is able lift her right leg off the bed. However she is not able to move her foot, wiggle her toes. Her right upper extremity is still flaccid. Patient started getting contractures of the right lower extremity. 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 Venegas has evaluated the patient. The bleed has been stable on repeat head CT. No surgery needed. Speech therapy has been following the patient and last documented diet recommendation was 05/24/16 to indicate mechanical soft diet with thin liquids. As per continue speech therapy it would appear as if the patient has been refusing therapy for at least 90% of the time. We'll need to continue speech therapy until they indicate the patient no longer requires therapy Occupational therapy indicates OT at rehabilitation. Will need intensive occupational therapy evaluation until patient cleared by OT for discharge or patient's functional capacity can no longer improve Physical therapy indicating PT at rehabilitation. We'll need to continue intensive physical therapy, continue right AFO, Norflex for muscle spasms Right arm pain, controlled Continue Neurontin for right arm neuropathic pain Dysuria, urinary frequency BNP was performed, sodium level was normal. No signs of central DI Urinalysis was performed which did not indicate any signs of infection Belladonna rectal suppository Hypertension, systolic blood pressure 106-142 Norvasc 5 mg daily Vasotec, clonidine as needed Hypokalemia Patient is on potassium replacement Monitor BMP as needed Alcohol and cocaine abuse dependence patient previously counseled. Status post thiamine Tobacco abuse Counseled on cessation Chronic hepatitis C, chronic Patient with chronic transaminitis continue to follow, which appear to be stable liver ultrasound showed fatty infiltration Anxiety. Controlled Seroquel low-dose initiated on 05/27. Bowel regimen Justyna-Colace as needed DVT prophylaxis Sequential compression devices. Discharge Planning Patient has no funding for rehabilitation. Patient was denied SSI. software engineering project manager is following up with [facility] regarding status of applications. Occupational therapy recommends shower bench, 3-1 bedside commode for discharge. PT recommends right AFO. 08/16, case management spoke with patient's mother who states that she'll assist in discharge planning. [place] decision [place] Aug 20, 2016 08:42
[2016-08-20] MEDS: GABAPENTIN 100 MG CAP PO SCH ×3 (09:00→18:00)
[2016-08-20] MEDS: POTASSIUM CHLORIDE 10 MEQ CONTROLLED RELEASE TAB PO SCH (09:16)
[2016-08-20] MEDS: amLODIPine BESYLATE 5 MG TAB PO SCH (09:16)
[2016-08-20] MEDS: FAMOTIDINE 20 MG TAB PO SCH ×2 (09:16→21:48)
[2016-08-20 10:06] VITALS: BP 144/78; PULSE 80; RESP 18; TEMP 98; O2SAT 98
[2016-08-20 20:00] VITALS: BP 140/77; PULSE 89; RESP 18; TEMP 98.9; O2SAT 94
[2016-08-20] MEDS: ORPHENADRINE CITRATE 100 MG SUSTAINED RELEASE TAB PO PRN (21:48)
[2016-08-20] MEDS: BELLADONNA ALKALOIDS/OPIUM 60 MG SUPP RECTAL SCH (21:48)
[2016-08-20] MEDS: QUEtiapine FUMARATE 25 MG TAB PO SCH (21:48)
[2016-08-21 08:26] VITALS: BP 138/86; PULSE 74; RESP 22; TEMP 98.2; O2SAT 98
[2016-08-21] MEDS: amLODIPine BESYLATE 5 MG TAB PO SCH (09:01)
[2016-08-21] MEDS: POTASSIUM CHLORIDE 10 MEQ CONTROLLED RELEASE TAB PO SCH (09:01)
[2016-08-21] MEDS: GABAPENTIN 100 MG CAP PO SCH ×3 (09:01→18:00)
[2016-08-21] MEDS: FAMOTIDINE 20 MG TAB PO SCH ×2 (09:01→21:07)
--- NOTE | 2016-08-21 09:04 | HHI.PR ---
Subjective Remarks Patient seen and examined today. Patient denies any new complaints. No change in clinical status. Objective Vitals Vital Signs Date Time Temp Pulse Resp B/P Pulse Ox O2 Delivery O2 Flow Rate FiO2 08/21/16 08:26 98.2 74 22 138/86 98 08/20/16 20:00 98.9 89 18 140/77 94 08/20/16 10:06 98.0 80 18 144/78 98 I/O 08/20/16 08/20/16 08/20/16 08/21/16 08/21/16 08/21/16 07:00 15:00 23:00 07:00 15:00 23:00 Intake Total 550 ml 0 ml 280 ml 0 ml Output Total 700 ml Balance 550 ml 0 ml -420 ml 0 ml Intake Oral 550 ml 280 ml IV Total 0 ml 0 ml Output Urine Total 700 ml # Voids 3 2 # Bowel Movements 0 1 Result Diagram: 08/20/16 0445 Objective Remarks GENERAL: Well-developed, well-nourished, in no acute distress. alert and orientated HEENT: Head is normocephalic without any lesions or masses noted right facial droop. NECK: Supple without any masses. Trachea midline no deviation. CARDIAC: Regular rhythm, regular rate. S1/S2 are heard. No murmurs gallops or rubs. LUNGS: Clear to auscultation bilaterally. No wheeze, rhonchi or rales. No use of accessory muscles on inspiration or expiration. ABDOMEN: Soft, nontender. Nondistended. Bowel sounds heard in all 4 quadrants. No organomegaly or masses. Negative rebound, negative guarding EXTREMITIES: No edema, pulses are equal bilaterally. No cyanosis or clubbing NEUROLOGY: Mood and affect appear appropriate. Dense right hemiparesis which appears to be improving in the lower extremity. Patient is able to move her right hand second third and fourth digit. 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 Venegas has evaluated the patient. The bleed has been stable on repeat head CT. No surgery needed. Speech therapy has been following the patient and last documented diet recommendation was 05/24/16 to indicate mechanical soft diet with thin liquids. As per continue speech therapy it would appear as if the patient has been refusing therapy for at least 90% of the time. We'll need to continue speech therapy until they indicate the patient no longer requires therapy Occupational therapy indicates OT at rehabilitation. Will need intensive occupational therapy evaluation until patient cleared by OT for discharge or patient's functional capacity can no longer improve, OT is not seen the patient in 9 days, patient is improving with able to move her fingers now and lift her leg off the bed. Patient will need to continue occupational therapy until discharge Physical therapy indicating PT at rehabilitation. We'll need to continue intensive physical therapy, continue right AFO, Norflex for muscle spasms Right arm pain, controlled Continue Neurontin for right arm neuropathic pain Dysuria, urinary frequency BNP was performed, sodium level was normal. No signs of central DI Urinalysis was performed which did not indicate any signs of infection Belladonna rectal suppository Hypertension, systolic blood pressure 106-142 Norvasc 5 mg daily Vasotec, clonidine as needed Hypokalemia Patient is on potassium replacement Monitor BMP as needed Alcohol and cocaine abuse dependence patient previously counseled. Status post thiamine Tobacco abuse Counseled on cessation Chronic hepatitis C, chronic Patient with chronic transaminitis continue to follow, which appear to be stable liver ultrasound showed fatty infiltration Anxiety. Controlled Seroquel low-dose initiated on 05/27. Bowel regimen Justyna-Colace as needed DVT prophylaxis Sequential compression devices. Discharge Planning Patient has no funding for rehabilitation. Patient was denied SSI. entry level assistant manager is following up with [facility] regarding status of applications. Occupational therapy recommends shower bench, 3-1 bedside commode for discharge. PT recommends right AFO. 08/16, case management spoke with patient's mother who states that she'll assist in discharge planning. Awaiting decision from the [place] in [facility] Aug [place], 2016 09:04
[2016-08-21] MEDS: ACETAMINOPHEN 325 MG TAB PO PRN (13:12)
[2016-08-21 20:00] VITALS: BP 126/83; PULSE 76; RESP 20; TEMP 98.5; O2SAT 97
[2016-08-21] MEDS: ORPHENADRINE CITRATE 100 MG SUSTAINED RELEASE TAB PO PRN (21:07)
[2016-08-21] MEDS: BELLADONNA ALKALOIDS/OPIUM 60 MG SUPP RECTAL SCH (21:07)
[2016-08-21] MEDS: QUEtiapine FUMARATE 25 MG TAB PO SCH (21:07)
[2016-08-22] MEDS: POTASSIUM CHLORIDE 10 MEQ CONTROLLED RELEASE TAB PO SCH (08:20)
[2016-08-22] MEDS: amLODIPine BESYLATE 5 MG TAB PO SCH (08:20)
[2016-08-22] MEDS: GABAPENTIN 100 MG CAP PO SCH ×3 (08:20→17:22)
[2016-08-22] MEDS: FAMOTIDINE 20 MG TAB PO SCH ×2 (08:20→21:09)
--- NOTE | 2016-08-22 08:23 | HHI.PR ---
Subjective Remarks Patient seen and examined today. Patient denies any new complaints. No change in clinical status. Objective Vitals Vital Signs Date Time Temp Pulse Resp B/P Pulse Ox O2 Delivery O2 Flow Rate FiO2 08/21/16 20:00 98.5 76 20 126/83 97 08/21/16 08:26 98.2 74 22 138/86 98 I/O 08/21/16 08/21/16 08/21/16 08/22/16 08/22/16 08/22/16 06:59 14:59 22:59 06:59 14:59 22:59 Intake Total 280 ml 0 ml Output Total 700 ml 250 ml Balance -420 ml 0 ml -250 ml Intake Oral 280 ml IV Total 0 ml Output Urine Total 700 ml 250 ml # Voids 2 1 1 # Bowel Movements 1 Result Diagram: 08/20/16 0445 Objective Remarks GENERAL: Well-developed, well-nourished, in no acute distress. alert and orientated HEENT: Head is normocephalic without any lesions or masses noted right facial droop. NECK: Supple without any masses. Trachea midline no deviation. CARDIAC: Regular rhythm, regular rate. S1/S2 are heard. No murmurs gallops or rubs. LUNGS: Clear to auscultation bilaterally. No wheeze, rhonchi or rales. No use of accessory muscles on inspiration or expiration. ABDOMEN: Soft, nontender. Nondistended. Bowel sounds heard in all 4 quadrants. No organomegaly or masses. Negative rebound, negative guarding EXTREMITIES: No edema, pulses are equal bilaterally. No cyanosis or clubbing NEUROLOGY: Mood and affect appear appropriate. Dense right hemiparesis which appears to be improving in the lower extremity. Patient is able to move her right hand second third and fourth digit. 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 Venegas has evaluated the patient. The bleed has been stable on repeat head CT. No surgery needed. Speech therapy has been following the patient and last documented diet recommendation was 05/24/16 to indicate mechanical soft diet with thin liquids. As per continue speech therapy it would appear as if the patient has been refusing therapy for at least 90% of the time. We'll need to continue speech therapy until they indicate the patient no longer requires therapy Occupational therapy indicates OT at rehabilitation. Will need intensive occupational therapy evaluation until patient cleared by OT for discharge or patient's functional capacity can no longer improve, OT is not seen the patient in 9 days, patient is improving with able to move her fingers now and lift her leg off the bed. Patient will need to continue occupational therapy until discharge Physical therapy indicating PT at rehabilitation. We'll need to continue intensive physical therapy, continue right AFO, Norflex for muscle spasms Right arm pain, controlled Continue Neurontin for right arm neuropathic pain Dysuria, urinary frequency BNP was performed, sodium level was normal. No signs of central DI Urinalysis was performed which did not indicate any signs of infection Belladonna rectal suppository Hypertension, systolic blood pressure 126-140 Norvasc 5 mg daily Vasotec, clonidine as needed Hypokalemia Patient is on potassium replacement Monitor BMP as needed Alcohol and cocaine abuse dependence patient previously counseled. Status post thiamine Tobacco abuse Counseled on cessation Chronic hepatitis C, chronic Patient with chronic transaminitis continue to follow, which appear to be stable liver ultrasound showed fatty infiltration Anxiety. Controlled Seroquel low-dose initiated on 05/27. Bowel regimen Justyna-Colace as needed DVT prophylaxis Sequential compression devices. Discharge Planning Patient has no funding for rehabilitation. Patient was denied SSI. accounts manager is following up with [facility] regarding status of applications. Occupational therapy recommends shower bench, 3-1 bedside commode for discharge. PT recommends right AFO. 08/16, case management spoke with patient's mother who states that she'll assist in discharge planning. Awaiting decision from the [place] Aug 22, 2016 08:23
[2016-08-22 08:26] VITALS: BP 115/94; PULSE 76; RESP 20; TEMP 97.5; O2SAT 97
[2016-08-22 20:00] VITALS: BP 123/69; PULSE 87; RESP 20; TEMP 98.7; O2SAT 95
[2016-08-22] MEDS: ORPHENADRINE CITRATE 100 MG SUSTAINED RELEASE TAB PO PRN (21:09)
[2016-08-22] MEDS: BELLADONNA ALKALOIDS/OPIUM 60 MG SUPP RECTAL SCH (21:09)
[2016-08-22] MEDS: QUEtiapine FUMARATE 25 MG TAB PO SCH (21:09)
[2016-08-23 08:00] VITALS: BP 136/76; PULSE 79; RESP 18; TEMP 97.8; O2SAT 94
--- NOTE | 2016-08-23 08:48 | HHI.PR ---
Subjective Remarks Patient seen and examined today. Patient denies any new complaints. No change in clinical status. Objective Vitals Vital Signs Date Time Temp Pulse Resp B/P Pulse Ox O2 Delivery O2 Flow Rate FiO2 08/22/16 20:00 98.7 87 20 123/69 95 I/O 08/22/16 08/22/16 08/22/16 08/23/16 08/23/16 08/23/16 07:00 15:00 23:00 07:00 15:00 23:00 Intake Total 120 ml 60 ml Output Total 250 ml Balance -250 ml 120 ml 60 ml Intake Oral 120 ml 60 ml Output Urine Total 250 ml # Voids 1 5 2 2 # Bowel Movements 0 0 Result Diagram: 08/20/16 0445 Objective Remarks GENERAL: Well-developed, well-nourished, in no acute distress. alert and orientated HEENT: Head is normocephalic without any lesions or masses noted right facial droop. NECK: Supple without any masses. Trachea midline no deviation. CARDIAC: Regular rhythm, regular rate. S1/S2 are heard. No murmurs gallops or rubs. LUNGS: Clear to auscultation bilaterally. No wheeze, rhonchi or rales. No use of accessory muscles on inspiration or expiration. ABDOMEN: Soft, nontender. Nondistended. Bowel sounds heard in all 4 quadrants. No organomegaly or masses. Negative rebound, negative guarding EXTREMITIES: No edema, pulses are equal bilaterally. No cyanosis or clubbing NEUROLOGY: Mood and affect appear appropriate. Dense right hemiparesis which appears to be improving in the lower extremity. Patient is able to move her right hand second third and fourth digit. 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 Venegas has evaluated the patient. The bleed has been stable on repeat head CT. No surgery needed. Speech therapy has been following the patient and last documented diet recommendation was 05/24/16 to indicate mechanical soft diet with thin liquids. As per continue speech therapy it would appear as if the patient has been refusing therapy for at least 90% of the time. We'll need to continue speech therapy until they indicate the patient no longer requires therapy Occupational therapy indicates OT at rehabilitation. Will need intensive occupational therapy evaluation until patient cleared by OT for discharge or patient's functional capacity can no longer improve, OT is not seen the patient in 9 days, patient is improving with able to move her fingers now and lift her leg off the bed. Patient will need to continue occupational therapy until discharge Physical therapy indicating PT at rehabilitation. We'll need to continue intensive physical therapy, continue right AFO, Norflex for muscle spasms Right arm pain, controlled Continue Neurontin for right arm neuropathic pain Dysuria, urinary frequency BNP was performed, sodium level was normal. No signs of central DI Urinalysis was performed which did not indicate any signs of infection Belladonna rectal suppository Hypertension, systolic blood pressure 115-123 Norvasc 5 mg daily Vasotec, clonidine as needed Hypokalemia Patient is on potassium replacement Monitor BMP as needed Alcohol and cocaine abuse dependence patient previously counseled. Status post thiamine Tobacco abuse Counseled on cessation Chronic hepatitis C, chronic Patient with chronic transaminitis continue to follow, which appear to be stable liver ultrasound showed fatty infiltration Anxiety. Controlled Seroquel low-dose initiated on 05/27. Bowel regimen Justyna-Colace as needed DVT prophylaxis Sequential compression devices. Discharge Planning Patient has no funding for rehabilitation. Patient was denied SSI. stock room manager is following up with [facility] regarding status of applications. Occupational therapy recommends shower bench, 3-1 bedside commode for discharge. PT recommends right AFO. 08/16, case management spoke with patient's mother who states that she'll assist in discharge planning. [place] decision [place] the [place] Aug 23, 2016 08:48
[2016-08-23] MEDS: amLODIPine BESYLATE 5 MG TAB PO SCH (09:49)
[2016-08-23] MEDS: GABAPENTIN 100 MG CAP PO SCH ×3 (09:49→18:00)
[2016-08-23] MEDS: FAMOTIDINE 20 MG TAB PO SCH ×2 (09:49→21:11)
[2016-08-23] MEDS: POTASSIUM CHLORIDE 10 MEQ CONTROLLED RELEASE TAB PO SCH (09:49)
[2016-08-23 20:00] VITALS: BP 132/78; PULSE 81; RESP 18; TEMP 98.5; O2SAT 96
[2016-08-23] MEDS: BELLADONNA ALKALOIDS/OPIUM 60 MG SUPP RECTAL SCH (21:10)
[2016-08-23] MEDS: QUEtiapine FUMARATE 25 MG TAB PO SCH (21:10)
[2016-08-23] MEDS: ORPHENADRINE CITRATE 100 MG SUSTAINED RELEASE TAB PO PRN (21:11)
[2016-08-23] MEDS: ACETAMINOPHEN 325 MG TAB PO PRN (21:17)
[2016-08-24 08:00] VITALS: BP 124/75; PULSE 74; RESP 20; TEMP 98; O2SAT 96
[2016-08-24] MEDS: amLODIPine BESYLATE 5 MG TAB PO SCH (10:34)
[2016-08-24] MEDS: GABAPENTIN 100 MG CAP PO SCH ×3 (10:34→18:09)
[2016-08-24] MEDS: POTASSIUM CHLORIDE 10 MEQ CONTROLLED RELEASE TAB PO SCH (10:34)
[2016-08-24] MEDS: FAMOTIDINE 20 MG TAB PO SCH ×2 (10:34→22:06)
--- NOTE | 2016-08-24 10:40 | HHI.PR ---
Subjective Remarks No acute complaints. No change in clinical status. Objective Vitals Vital Signs Date Time Temp Pulse Resp B/P Pulse Ox O2 Delivery O2 Flow Rate FiO2 08/24/16 08:00 98.0 74 20 124/75 96 08/23/16 20:00 98.5 81 18 132/78 96 I/O 08/23/16 08/23/16 08/23/16 08/24/16 08/24/16 08/24/16 06:59 14:59 22:59 06:59 14:59 22:59 Intake Total 60 ml 1125 ml 225 ml Output Total 1200 ml Balance 60 ml -75 ml 225 ml Intake Oral 60 ml 1125 ml 225 ml Output Urine Total 1200 ml # Voids 2 12 3 # Bowel Movements 0 Result Diagram: 08/20/16 0445 Objective Remarks GENERAL: Thin, chronically ill appearing patient in no apparent distress. SKIN: Warm and dry. HEAD: Normocephalic. CARDIOVASCULAR: Regular rate and rhythm. RESPIRATORY: Limited anterior exam. No accessory muscle use. Clear to auscultation. Breath sounds equal bilaterally. GASTROINTESTINAL: Abdomen soft, non-tender, nondistended. MUSCULOSKELETAL: 2+ right distal radial pulse. NEUROLOGICAL: Awake and alert. PSYCHIATRIC: Insight and judgment normal. 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 Venegas has evaluated the patient. The bleed has been stable on repeat head CT. No surgery needed. Speech therapy has been following the patient and last documented diet recommendation was 05/24/16 to indicate mechanical soft diet with thin liquids. As per continue speech therapy it would appear as if the patient has been refusing therapy for at least 90% of the time. We'll need to continue speech therapy until they indicate the patient no longer requires therapy Occupational therapy indicates OT at rehabilitation. Will need intensive occupational therapy evaluation until patient cleared by OT for discharge or patient's functional capacity can no longer improve Physical therapy indicating PT at rehabilitation. We'll need to continue intensive physical therapy, continue right AFO. Physical therapist informed me that the patient has been having muscle spasms. She was started on Norflex bid prn on 08/14/16. Will avoid Flexeril due to liver issues. Monitor for DELI BAKERY CLERK side effects due to concurrent use of Seroquel and gabapentin. Right arm pain, controlled Continue Neurontin for right arm neuropathic pain Increased urinary frequency: controlled BNP was performed on 07/25, sodium level was normal. No signs of central DI. Urinalysis was again performed on 07/25 which did not indicate any signs of infection Monitor intake and output. Patient had increased urinary voids, but volume of urine output itself is wnl. Continue Belladonna suppository which has provided great improvement per patient. Hypertension: Intermittent hypertension, currently controlled. Norvasc 10 mg daily PRN clonidine and enalapril for SBP >160. Continue to monitor Alcohol and cocaine abuse dependence patient previously counseled. Status post thiamine Tobacco abuse Counseled on cessation Chronic hepatitis C, chronic Patient with chronic transaminitis, stable Liver ultrasound showed fatty infiltration Anxiety: controlled Seroquel low-dose initiated on 05/27. GI prophylaxis: Justyna-colace as needed. Patient told to ask for prn dyspepsia medication, Maalox and TUMS. DVT prophylaxis Sequential compression devices. Discharge Planning Awaiting decision from the [place] if they will accept patient. Occupational therapy recommends shower bench, 3-1 bedside commode for discharge. PT recommends right AFO. Elisabeth Church Aug 24, 2016 10:39
[2016-08-24 20:00] VITALS: BP 123/82; PULSE 76; RESP 18; TEMP 97.4; O2SAT 94
[2016-08-24] MEDS: QUEtiapine FUMARATE 25 MG TAB PO SCH (22:05)
[2016-08-24] MEDS: ORPHENADRINE CITRATE 100 MG SUSTAINED RELEASE TAB PO PRN (22:06)
[2016-08-24] MEDS: BELLADONNA ALKALOIDS/OPIUM 60 MG SUPP RECTAL SCH (22:06)
[2016-08-25 08:00] VITALS: BP 112/74; PULSE 73; RESP 20; TEMP 96.9; O2SAT 95
[2016-08-25] MEDS: FAMOTIDINE 20 MG TAB PO SCH ×2 (08:23→21:05)
[2016-08-25] MEDS: POTASSIUM CHLORIDE 10 MEQ CONTROLLED RELEASE TAB PO SCH (08:23)
[2016-08-25] MEDS: GABAPENTIN 100 MG CAP PO SCH ×3 (08:24→17:00)
[2016-08-25] MEDS: amLODIPine BESYLATE 5 MG TAB PO SCH (08:24)
--- NOTE | 2016-08-25 13:16 | HHI.PR ---
Subjective Remarks No acute complaints. No change in clinical status. Objective Vitals Vital Signs Date Time Temp Pulse Resp B/P Pulse Ox O2 Delivery O2 Flow Rate FiO2 08/25/16 08:00 96.9 73 20 112/74 95 08/24/16 20:00 97.4 76 18 123/82 94 I/O 08/24/16 08/24/16 08/24/16 08/25/16 08/25/16 08/25/16 07:00 15:00 23:00 07:00 15:00 23:00 Intake Total 225 ml Balance 225 ml Intake Oral 225 ml # Voids 3 4 1 # Bowel Movements 1 Objective Remarks GENERAL: Thin, chronically ill appearing patient in no apparent distress. SKIN: Warm and dry. HEAD: Normocephalic. CARDIOVASCULAR: Regular rate and rhythm. RESPIRATORY: Limited anterior exam. No accessory muscle use. Clear to auscultation. Breath sounds equal bilaterally. GASTROINTESTINAL: Abdomen soft, non-tender, nondistended. NEUROLOGICAL: Awake and alert. PSYCHIATRIC: Insight and judgment normal. 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 Venegas has evaluated the patient. The bleed has been stable on repeat head CT. No surgery needed. Speech therapy has been following the patient and last documented diet recommendation was 05/24/16 to indicate mechanical soft diet with thin liquids. As per continue speech therapy it would appear as if the patient has been refusing therapy for at least 90% of the time. We'll need to continue speech therapy until they indicate the patient no longer requires therapy Occupational therapy indicates OT at rehabilitation. Will need intensive occupational therapy evaluation until patient cleared by OT for discharge or patient's functional capacity can no longer improve Physical therapy indicating PT at rehabilitation. We'll need to continue intensive physical therapy, continue right AFO. Continue Norflex bid prn muscle spasms on 08/14/16. Right arm pain, controlled Continue Neurontin for right arm neuropathic pain Increased urinary frequency: controlled BNP was performed on 07/25, sodium level was normal. No signs of central DI. Urinalysis was again performed on 07/25 which did not indicate any signs of infection Monitor intake and output. Patient had increased urinary voids, but volume of urine output itself is wnl. Continue Belladonna suppository which has provided great improvement per patient. Hypertension: Intermittent hypertension, currently controlled. Norvasc 10 mg daily PRN clonidine and enalapril for SBP >160. Continue to monitor Alcohol and cocaine abuse dependence patient previously counseled. Status post thiamine Tobacco abuse Counseled on cessation Chronic hepatitis C, chronic Patient with chronic transaminitis, stable Liver ultrasound showed fatty infiltration Anxiety: controlled Seroquel low-dose initiated on 05/27. GI prophylaxis: Justyna-colace as needed. Patient told to ask for prn dyspepsia medication, Maalox and TUMS. DVT prophylaxis Sequential compression devices. Discharge Planning Awaiting decision from the [facility] if they will accept patient. Occupational therapy recommends shower bench, 3-1 bedside commode for discharge. PT recommends right AFO. Elisabeth Church Aug 25, 2016 13:16 Walter Gamboa MD Aug 25, 2016 18:51
[2016-08-25] MEDS: QUEtiapine FUMARATE 25 MG TAB PO SCH (21:05)
[2016-08-25] MEDS: BELLADONNA ALKALOIDS/OPIUM 60 MG SUPP RECTAL SCH (21:05)
[2016-08-25] MEDS: ORPHENADRINE CITRATE 100 MG SUSTAINED RELEASE TAB PO PRN (21:05)
[2016-08-25 21:06] VITALS: BP 138/83; PULSE 80; RESP 14; TEMP 97.6; O2SAT 95
[2016-08-26 08:00] VITALS: BP 131/86; PULSE 76; RESP 20; TEMP 98.7; O2SAT 96
[2016-08-26] MEDS: FAMOTIDINE 20 MG TAB PO SCH ×2 (09:00→22:04)
[2016-08-26] MEDS: POTASSIUM CHLORIDE 10 MEQ CONTROLLED RELEASE TAB PO SCH (09:20)
[2016-08-26] MEDS: amLODIPine BESYLATE 5 MG TAB PO SCH (09:20)
[2016-08-26] MEDS: GABAPENTIN 100 MG CAP PO SCH ×3 (09:21→17:46)
[2016-08-26] MEDS: ACETAMINOPHEN 325 MG TAB PO PRN (09:21)
--- NOTE | 2016-08-26 19:34 | HHI.PR ---
Subjective Remarks Late entry. Patient evaluated earlier this morning. No acute complaints. No change in clinical status. Objective Vitals Vital Signs Date Time Temp Pulse Resp B/P Pulse Ox O2 Delivery O2 Flow Rate FiO2 08/26/16 10:21 16 08/26/16 08:00 98.7 76 20 131/86 96 08/25/16 21:06 97.6 80 14 138/83 95 I/O 08/25/16 08/25/16 08/25/16 08/26/16 08/26/16 08/26/16 07:00 15:00 23:00 07:00 15:00 23:00 Intake Total 900 ml 720 ml 720 ml 1110 ml 240 ml Output Total 225 ml Balance 900 ml 720 ml 720 ml 885 ml 240 ml Intake Oral 900 ml 720 ml 720 ml 1110 ml 240 ml Output Urine Total 225 ml # Voids 1 4 3 3 3 2 # Bowel Movements 2 0 1 Objective Remarks GENERAL: Thin, chronically ill appearing patient in no apparent distress. SKIN: Warm and dry. HEAD: Normocephalic. CARDIOVASCULAR: Regular rate and rhythm. RESPIRATORY: Limited anterior exam. No accessory muscle use. Clear to auscultation. Breath sounds equal bilaterally. GASTROINTESTINAL: Abdomen soft, non-tender, nondistended. NEUROLOGICAL: Awake and alert. PSYCHIATRIC: Insight and judgment normal. 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 Venegas has evaluated the patient. The bleed has been stable on repeat head CT. No surgery needed. Speech therapy has been following the patient and last documented diet recommendation was 05/24/16 to indicate mechanical soft diet with thin liquids. As per continue speech therapy it would appear as if the patient has been refusing therapy for at least 90% of the time. We'll need to continue speech therapy until they indicate the patient no longer requires therapy Occupational therapy indicates OT at rehabilitation. Will need intensive occupational therapy evaluation until patient cleared by OT for discharge or patient's functional capacity can no longer improve Physical therapy indicating PT at rehabilitation. We'll need to continue intensive physical therapy, continue right AFO. Continue Norflex bid prn muscle spasms on 08/14/16. Right arm pain, controlled Continue Neurontin for right arm neuropathic pain Increased urinary frequency: controlled BNP was performed on 07/25, sodium level was normal. No signs of central DI. Urinalysis was again performed on 07/25 which did not indicate any signs of infection Monitor intake and output. Patient had increased urinary voids, but volume of urine output itself is wnl. Continue Belladonna suppository which has provided great improvement per patient. Hypertension: Intermittent hypertension, currently controlled. Norvasc 10 mg daily PRN clonidine and enalapril for SBP >160. Continue to monitor Alcohol and cocaine abuse dependence patient previously counseled. Status post thiamine Tobacco abuse Counseled on cessation Chronic hepatitis C, chronic Patient with chronic transaminitis, stable Liver ultrasound showed fatty infiltration Anxiety: controlled Seroquel low-dose initiated on 05/27. GI prophylaxis: Justyna-colace as needed. Patient told to ask for prn dyspepsia medication, Maalox and TUMS. DVT prophylaxis Sequential compression devices. Discharge Planning Awaiting decision from the [facility] if they will accept patient. Occupational therapy recommends shower bench, 3-1 bedside commode for discharge. PT recommends right AFO. Elisabeth Church Aug 26, 2016 19:34
[2016-08-26 20:00] VITALS: BP 137/86; PULSE 74; RESP 20; TEMP 97.7; O2SAT 96
[2016-08-26] MEDS: QUEtiapine FUMARATE 25 MG TAB PO SCH (22:04)
[2016-08-26] MEDS: BELLADONNA ALKALOIDS/OPIUM 60 MG SUPP RECTAL SCH (22:04)
[2016-08-27 08:00] VITALS: BP 131/80; PULSE 76; RESP 16; TEMP 97.7; O2SAT 97
[2016-08-27] MEDS: amLODIPine BESYLATE 5 MG TAB PO SCH (09:13)
[2016-08-27] MEDS: GABAPENTIN 100 MG CAP PO SCH ×3 (09:13→17:40)
[2016-08-27] MEDS: POTASSIUM CHLORIDE 10 MEQ CONTROLLED RELEASE TAB PO SCH (09:13)
[2016-08-27] MEDS: FAMOTIDINE 20 MG TAB PO SCH ×2 (09:13→21:33)
--- NOTE | 2016-08-27 18:53 | HHI.PR ---
Subjective Remarks Late entry. Patient evaluated this morning. States she is good, slept well. No change in clinical status. Objective Vitals Vital Signs Date Time Temp Pulse Resp B/P Pulse Ox O2 Delivery O2 Flow Rate FiO2 08/27/16 08:00 97.7 76 16 131/80 97 08/26/16 20:00 97.7 74 20 137/86 96 I/O 08/26/16 08/26/16 08/26/16 08/27/16 08/27/16 08/27/16 07:00 15:00 23:00 07:00 15:00 23:00 Intake Total 720 ml 1110 ml 240 ml 360 ml Output Total 225 ml Balance 720 ml 885 ml 240 ml 360 ml Intake Oral 720 ml 1110 ml 240 ml 360 ml IV Total 0 ml Output Urine Total 225 ml # Voids 3 3 2 3 # Bowel Movements 1 Objective Remarks GENERAL: Thin, chronically ill appearing patient in no apparent distress. SKIN: Warm and dry. HEAD: Normocephalic. CARDIOVASCULAR: Regular rate and rhythm. RESPIRATORY: Limited anterior exam. No accessory muscle use. Clear to auscultation. Breath sounds equal bilaterally. GASTROINTESTINAL: Abdomen soft, non-tender, nondistended. NEUROLOGICAL: Awake and alert. PSYCHIATRIC: Insight and judgment normal. 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 Venegas has evaluated the patient. The bleed has been stable on repeat head CT. No surgery needed. Speech therapy has been following the patient and last documented diet recommendation was 05/24/16 to indicate mechanical soft diet with thin liquids. As per continue speech therapy it would appear as if the patient has been refusing therapy for at least 90% of the time. We'll need to continue speech therapy until they indicate the patient no longer requires therapy Occupational therapy indicates OT at rehabilitation. Will need intensive occupational therapy evaluation until patient cleared by OT for discharge or patient's functional capacity can no longer improve Physical therapy indicating PT at rehabilitation. We'll need to continue intensive physical therapy, continue right AFO. Continue Norflex bid prn muscle spasms on 08/14/16. Right arm pain, controlled Continue Neurontin for right arm neuropathic pain Increased urinary frequency: controlled BNP was performed on 07/25, sodium level was normal. No signs of central DI. Urinalysis was again performed on 07/25 which did not indicate any signs of infection Monitor intake and output. Patient had increased urinary voids, but volume of urine output itself is wnl. Continue Belladonna suppository which has provided great improvement per patient. Hypertension: Intermittent hypertension, currently controlled. Norvasc 10 mg daily PRN clonidine and enalapril for SBP >160. Continue to monitor Alcohol and cocaine abuse dependence patient previously counseled. Status post thiamine Tobacco abuse Counseled on cessation Chronic hepatitis C, chronic Patient with chronic transaminitis, stable Liver ultrasound showed fatty infiltration Anxiety: controlled Seroquel low-dose initiated on 05/27. GI prophylaxis: Justyna-colace as needed. Patient told to ask for prn dyspepsia medication, Maalox and TUMS. DVT prophylaxis Sequential compression devices. Discharge Planning Awaiting decision from the [facility] if they will accept patient. Occupational therapy recommends shower bench, 3-1 bedside commode for discharge. PT recommends right AFO. Elisabeth Church Aug 27, 2016 18:53
[2016-08-27 20:00] VITALS: BP 133/75; PULSE 75; RESP 17; TEMP 98.1; O2SAT 96
[2016-08-27] MEDS: BELLADONNA ALKALOIDS/OPIUM 60 MG SUPP RECTAL SCH (21:33)
[2016-08-27] MEDS: QUEtiapine FUMARATE 25 MG TAB PO SCH (21:34)
[2016-08-28] MEDS: FAMOTIDINE 20 MG TAB PO SCH ×2 (08:58→21:26)
[2016-08-28] MEDS: GABAPENTIN 100 MG CAP PO SCH ×3 (08:58→16:56)
[2016-08-28] MEDS: amLODIPine BESYLATE 5 MG TAB PO SCH (08:59)
[2016-08-28] MEDS: POTASSIUM CHLORIDE 10 MEQ CONTROLLED RELEASE TAB PO SCH (08:59)
[2016-08-28 09:53] VITALS: BP 110/70; PULSE 77; RESP 20; TEMP 95.9; O2SAT 96
--- NOTE | 2016-08-28 16:46 | HHI.PR ---
Subjective Remarks Late entry. Patient evaluated early this morning. Nurse asked if patient's diet could be changed because patient is currently on soft diet. Patient states she didn't sleep last night. Objective Vitals Vital Signs Date Time Temp Pulse Resp B/P Pulse Ox O2 Delivery O2 Flow Rate FiO2 08/28/16 09:53 95.9 77 20 110/70 96 08/27/16 20:00 98.1 75 17 133/75 96 I/O 08/27/16 08/27/16 08/27/16 08/28/16 08/28/16 08/28/16 07:00 15:00 23:00 07:00 15:00 23:00 Intake Total 360 ml 1080 ml 720 ml 0 ml Balance 360 ml 1080 ml 720 ml 0 ml Intake Oral 360 ml 1080 ml 720 ml IV Total 0 ml 0 ml # Voids 3 3 3 # Bowel Movements 1 1 Objective Remarks GENERAL: Thin, chronically ill appearing patient in no apparent distress. SKIN: Warm and dry. HEAD: Normocephalic. CARDIOVASCULAR: Regular rate and rhythm. RESPIRATORY: Limited anterior exam. No accessory muscle use. Clear to auscultation. Breath sounds equal bilaterally. GASTROINTESTINAL: Abdomen soft, non-tender, nondistended. NEUROLOGICAL: Awake and alert. PSYCHIATRIC: Insight and judgment normal. 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 Venegas has evaluated the patient. The bleed has been stable on repeat head CT. No surgery needed. Speech therapy has been following the patient and last documented diet recommendation was 05/24/16 to indicate mechanical soft diet with thin liquids. As per continue speech therapy it would appear as if the patient has been refusing therapy for at least 90% of the time. Reconsult ST for swallow evaluation as patient desires advanced diet. Occupational therapy indicates OT at rehabilitation. Will need intensive occupational therapy evaluation until patient cleared by OT for discharge or patient's functional capacity can no longer improve Physical therapy indicating PT at rehabilitation. We'll need to continue intensive physical therapy, continue right AFO. Continue Norflex bid prn muscle spasms on 08/14/16. Right arm pain, controlled Continue Neurontin for right arm neuropathic pain Increased urinary frequency: BNP was performed on 07/25, sodium level was normal. No signs of central DI. Urinalysis was again performed on 07/25 which did not indicate any signs of infection Patient had increased urinary voids, but volume of urine output itself was wnl. Continue Belladonna suppository which has provided great improvement per patient. Still has increased frequency of voids, but volume is not being consistently measured. Monitor I & O. Hypertension: Intermittent hypertension, currently controlled. Norvasc 10 mg daily PRN clonidine and enalapril for SBP >160. Continue to monitor Alcohol and cocaine abuse dependence patient previously counseled. Status post thiamine Tobacco abuse Counseled on cessation Chronic hepatitis C, chronic Patient with chronic transaminitis, stable Liver ultrasound showed fatty infiltration Anxiety: controlled Seroquel low-dose initiated on 05/27. GI prophylaxis: Justyna-colace as needed. Patient told to ask for prn dyspepsia medication, Maalox and TUMS. DVT prophylaxis Sequential compression devices. Discharge Planning Awaiting decision from the [facility] if they will accept patient. Occupational therapy recommends shower bench, 3-1 bedside commode for discharge. PT recommends right AFO. Elisabeth Church Aug 28, 2016 16:46
[2016-08-28 20:00] VITALS: BP 115/72; PULSE 81; RESP 18; TEMP 97.2; O2SAT 96
[2016-08-28] MEDS: QUEtiapine FUMARATE 25 MG TAB PO SCH (21:26)
[2016-08-28] MEDS: BELLADONNA ALKALOIDS/OPIUM 60 MG SUPP RECTAL SCH (21:27)
[2016-08-28] MEDS: ACETAMINOPHEN 325 MG TAB PO PRN (21:27)
[2016-08-29 08:00] VITALS: BP 106/69; PULSE 90; RESP 20; TEMP 100.5; O2SAT 93
[2016-08-29] MEDS ORDERED: IBUPROFEN 400 MG TAB PO PRN (08:00)
[2016-08-29 08:31] LABS: AUTOMATED NEUTROPHIL # 15.8 TH/MM3 (1.8-7.7); BASOPHIL # 0.3 TH/MM3 (0-0.2); BASOPHIL % 1.6 % (0.0-2.0); EOSINOPHIL # 0.1 TH/MM3 (0-0.4); EOSINOPHIL % 0.3 % (0.0-4.0); HEMATOCRIT 37.8 % (35.0-46.0); LYMPH % 9.4 % (9.0-44.0); LYMPHOCYTE # 1.8 TH/MM3 (1.0-4.8); MEAN CELL VOLUME 84.8 FL (80.0-100.0); MEAN CORPUSCULAR HEMOGLOBIN 29.3 PG (27.0-34.0); MEAN CORPUSCULAR HGB CONC 34.5 % (32.0-36.0); MONO % 3.5 % (0.0-8.0); NEUT % 85.2 % (16.0-70.0); PLATELET COUNT 251 TH/MM3 (150-450); RED BLOOD COUNT 4.46 MIL/MM3 (4.00-5.30); RED CELL DISTRIBUTION WIDTH 12.3 % (11.6-17.2); WHITE BLOOD COUNT 18.7 TH/MM3 (4.0-11.0)
[2016-08-29 08:33] LABS: HEMO FLAGS DIFF FINAL
[2016-08-29 08:39] LABS: CHLORIDE 104 MEQ/L (98-107); POTASSIUM 4.2 MEQ/L (3.5-5.1); SODIUM (NA) 137 MEQ/L (136-145)
[2016-08-29 08:43] LABS: ANION GAP 9 MEQ/L (5-15); BICARBONATE 23.9 MEQ/L (21.0-32.0); BLOOD UREA NITROGEN 21 MG/DL (7-18)
[2016-08-29 08:45] LABS: ALT (GPT) 211 U/L (10-53); AST (GOT) 109 U/L (15-37); GLOMERULAR FILTRATION RATE 78 ML/MIN (>89)
[2016-08-29] MEDS: amLODIPine BESYLATE 5 MG TAB PO SCH (08:45)
[2016-08-29] MEDS: GABAPENTIN 100 MG CAP PO SCH ×3 (08:45→16:51)
[2016-08-29] MEDS: POTASSIUM CHLORIDE 10 MEQ CONTROLLED RELEASE TAB PO SCH (08:45)
[2016-08-29] MEDS: FAMOTIDINE 20 MG TAB PO SCH ×2 (08:45→21:23)
[2016-08-29 08:47] LABS: TOTAL BILIRUBIN ADULT 0.3 MG/DL (0.2-1.0)
[2016-08-29 08:48] LABS: ALKALINE PHOSPHATASE 84 U/L (45-117)
[2016-08-29] MEDS: ACETAMINOPHEN 325 MG TAB PO PRN ×2 (08:48→21:25)
--- NOTE | 2016-08-29 08:57 | HHI.PR ---
Subjective Remarks Nurse informs me the patient had a temp of 100.5 this morning. Nurse also tells me that patient will keep her food tray all day long and eat from it. Patient complains of pain of the left abdomen which started last night. Admits to fever and chills. She states she had 3 episodes of emesis. Denies any diarrhea. Last bowel movement yesterday was normal. Patient denies any runny nose, congestion, earache, sore throat, or cough. Denies dysuria. Objective Vitals Vital Signs Date Time Temp Pulse Resp B/P Pulse Ox O2 Delivery O2 Flow Rate FiO2 08/29/16 08:00 100.5 90 20 106/69 93 08/28/16 20:00 97.2 81 18 115/72 96 08/28/16 09:53 95.9 77 20 110/70 96 I/O 08/28/16 08/28/16 08/28/16 08/29/16 08/29/16 08/29/16 07:00 15:00 23:00 07:00 15:00 23:00 Intake Total 720 ml 0 ml 360 ml 240 ml Balance 720 ml 0 ml 360 ml 240 ml Intake Oral 720 ml 360 ml 240 ml IV Total 0 ml 0 ml # Voids 3 3 3 # Bowel Movements 1 0 0 Result Diagram: 08/29/16 0823 08/29/16 0823 Imaging Last Impressions Chest X-Ray 05/12/16 0600 Signed Impressions: Service Date/Time: Thursday, May 12, 2016 05:16 - CONCLUSION: No acute disease. Nadir Hebert MD Liver Ultrasound 05/11/16 0000 Signed Impressions: Service Date/Time: Wednesday, May 11, 2016 08:30 - CONCLUSION: 1. Liver is slightly echogenic which can be seen with fatty infiltration/hepatocellular dysfunction. 2. No evidence for cholelithiasis. Geremias Smith MD Head Magnetic Resonance Angiography 05/11/16 0000 Signed Impressions: Service Date/Time: Wednesday, May 11, 2016 16:21 - CONCLUSION: No acute elem of [place] vascular abnormalities. Jeremy Toledo MD Brain MRI 05/11/16 0000 Signed Impressions: Service Date/Time: Wednesday, May 11, 2016 16:21 - CONCLUSION: 1. Focal acute intraparenchymal hemorrhage in the left thalamus measuring 2.8 cm most likely representing a focal hemorrhagic infarction. 2. Bilateral cortical atrophy and mild chronic white matter changes. 3. No enhancing mass occupying lesions are demonstrated. Estrada Vigil MD Abdomen X-Ray 05/11/16 0000 Signed Impressions: Service Date/Time: Wednesday, May 11, 2016 16:03 - CONCLUSION: No evidence of obstruction. No MRI incompatible foreign body is identified. Estrada Vigil MD Head CT 05/10/16 1431 Signed Impressions: Service Date/Time: Tuesday, May 10, 2016 15:07 - CONCLUSION: 1. 2.3 cm left thalamic hypertensive type hemorrhage with approximately 4 mm of [id number] subfalcine shift. 2. Mild periventricular small vessel ischemic demyelination. 3. Results were called to Dr. Barboza at the time of this dictation. Nicholas Dove MD Objective Remarks GENERAL: Thin, chronically ill appearing patient in no apparent distress. SKIN: Warm and dry. HEAD: Normocephalic. CARDIOVASCULAR: Regular rate and rhythm. RESPIRATORY: No accessory muscle use. Clear to auscultation. Breath sounds equal bilaterally. GASTROINTESTINAL: Normoactive bowel sounds in all 4 quadrants. Tender over left upper quadrant and left lower quadrant. Abdomen soft, nondistended. No rigidity or guarding. NEUROLOGICAL: Awake and alert. PSYCHIATRIC: Insight and judgment normal. 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 Left upper quadrant and left lower quadrant pain with vomiting. CBC with elevated white blood cell count of 18.7. Hemoglobin normal. BUN 21 improved from 08/20. AST stable at 109. ALT decreased to 211 from 230 on 08/20. Lipase normal. No diarrhea. -UA pending. -CT abdomen and pelvis w/ contrast ordered Left basal ganglia bleed with 4mm MLS with dense Right hemiparesis, stable secondary to cocaine and uncontrolled hypertension Neurosurgery, Dr. Venegas has evaluated the patient. The bleed has been stable on repeat head CT. No surgery needed. Speech therapy has been following the patient and last documented diet recommendation was 05/24/16 to indicate mechanical soft diet with thin liquids. As per continue speech therapy it would appear as if the patient has been refusing therapy for at least 90% of the time. Reconsult ST for swallow evaluation as patient desires advanced diet. Occupational therapy indicates OT at rehabilitation. Will need intensive occupational therapy evaluation until patient cleared by OT for discharge or patient's functional capacity can no longer improve Physical therapy indicating PT at rehabilitation. We'll need to continue intensive physical therapy, continue right AFO. Continue Norflex bid prn muscle spasms on 08/14/16. Right arm pain, controlled Continue Neurontin for right arm neuropathic pain Increased urinary frequency: BNP was performed on 07/25, sodium level was normal. No signs of central DI. Urinalysis was again performed on 07/25 which did not indicate any signs of infection Patient had increased urinary voids, but volume of urine output itself was wnl. Continue Belladonna suppository which has provided great improvement per patient. Still has increased frequency of voids, but volume is not being consistently measured. Monitor I & O. Hypertension: Intermittent hypertension, currently controlled. Norvasc 10 mg daily PRN clonidine and enalapril for SBP >160. Continue to monitor Alcohol and cocaine abuse dependence patient previously counseled. Status post thiamine Tobacco abuse Counseled on cessation Chronic hepatitis C, chronic Patient with chronic transaminitis, stable Liver ultrasound showed fatty infiltration Anxiety: controlled Seroquel low-dose initiated on 05/27. GI prophylaxis: Justyna-colace as needed. Patient told to ask for prn dyspepsia medication, Maalox and TUMS. DVT prophylaxis Sequential compression devices. Discharge Planning Awaiting decision from the [facility] if they will accept patient. Occupational therapy recommends shower bench, 3-1 bedside commode for discharge. PT recommends right AFO. Attending Statement Patient has a MAXIMUM TEMPERATURE of 100.5 complains of nausea, vomiting and left lower quadrant abdominal pain. Regular bowel movements. No UTI symptoms. Vital signs noted with no tachycardia and tachypnea. Physical exam in distress due to pain No jaundice Regular rate and rhythm Clear to auscultation Abdomen soft tender left lower quadrant area CT of the abdomen pending Laboratory shows a white count of 18,000 Pertinent negative urinalysis and lipase Patient with fever, nausea, vomiting and left lower abdominal pain concerning for diverticulitis. Obtain blood cultures. We'll start intravenous antibiotics pending abdominal CT. We'll continue to closely monitor. Elisabeth Church Aug 29, 2016 08:57 Walter Gamboa MD Aug 29, 2016 12:23
[2016-08-29] MEDS ORDERED: DIATRIZOATE MEGLUM/DIATRIZOATE SOD 9 ML CUP PO ONE (10:00)
[2016-08-29 10:50] LABS: BLOOD, URINE NEG (NEG); GLUCOSE,URINE NEG (NEG); KETONE, URINE NEG (NEG); NITRITE,URINE NEG (NEG)
[2016-08-29 10:51] LABS: METHOD OF COLLECTION CLEAN CATCH; URINE COLOR YELLOW (YELLW/STRAW)
[2016-08-29 10:54] LABS: COMMENT (UR) CULT NOT INDICATED; CULTURE IF INDICATED CULT NOT INDICATED; SQUAMOUS EPITHELIAL CELL URINE 0-5 /hpf (0-5)
[2016-08-29] MEDS ORDERED: IOHEXOL 350 MG/ML 10 ML VIAL (for RAD DIAG) IV ONE (12:42)
--- NOTE | 2016-08-29 12:54 | RADHPO ---
EXAM DATE/TIME: 08/29/2016 12:24 [facility] COMPARISON: No previous studies available for comparison. INDICATIONS : Abdomen pain, distention. IV CONTRAST: 67 cc Omnipaque 350 (iohexol) IV ORAL CONTRAST: Prescribed oral contrast ingested. RADIATION DOSE: 6.71 CTDIvol (mGy) MEDICAL HISTORY : Hypertension. Hepatitis C. SURGICAL HISTORY : None. ENCOUNTER: Initial ACUITY: 2 days PAIN SCALE: 10/10 LOCATION: abdomen TECHNIQUE: Volumetric scanning of the abdomen and pelvis was performed. Using automated exposure control and adjustment of the mA and/or kV according to patient size, radiation dose was kept as low as reasonably achievable to obtain optimal diagnostic quality images. FINDINGS: CT Abdomen: The liver, spleen, pancreas, right kidney, adrenals are unremarkable. There is no evidenc e for any appreciable pathological adenopathy, free fluid, or bowel obstruction. There may be a small sliding hiatal hernia. Mild right lung base atelectasis and/or infiltrate is seen. There are 2 tiny nonobstructing stones in the left kidney the larger one measuring 4-5 mm in size. There are small lym ph nodes within the german hepatis and scattered tiny lymph nodes in the retroperitoneum most likely b enign. CT pelvis: There is no evidence for mass, abscess formation, or any significant adenopathy within the pelvis. There is evidence for old healed right sacral and inferior pubic ramus fracture. CONCLUSION: 1. There are tiny obstructing stones in the left kidney and old healed fractures of the pelvic bones. 2. Mild right lung base atelectasis and/or infiltrate is seen a small hiatal hernia. Braden Murrieta MD on August 29, 2016 at 12:47 Board Certified Radiologist. This report was verified electronically.
[2016-08-29 13:00] VITALS: BP 100/67; PULSE 87; RESP 20; TEMP 96.5; O2SAT 97
[2016-08-29 20:00] VITALS: BP 114/70; PULSE 80; RESP 18; TEMP 98.8; O2SAT 94
[2016-08-29] MEDS: BELLADONNA ALKALOIDS/OPIUM 60 MG SUPP RECTAL SCH (21:23)
[2016-08-29] MEDS: QUEtiapine FUMARATE 25 MG TAB PO SCH (21:23)
[2016-08-29] MEDS: ORPHENADRINE CITRATE 100 MG SUSTAINED RELEASE TAB PO PRN (21:25)
[2016-08-30 08:00] VITALS: BP 131/70; PULSE 72; RESP 16; TEMP 97.7; O2SAT 97
[2016-08-30] MEDS: POTASSIUM CHLORIDE 10 MEQ CONTROLLED RELEASE TAB PO SCH (08:51)
[2016-08-30] MEDS: FAMOTIDINE 20 MG TAB PO SCH ×2 (08:51→20:43)
[2016-08-30] MEDS: GABAPENTIN 100 MG CAP PO SCH ×3 (08:51→18:00)
[2016-08-30] MEDS: amLODIPine BESYLATE 5 MG TAB PO SCH (08:51)
[2016-08-30 09:41] LABS: AUTOMATED NEUTROPHIL # 6.8 TH/MM3 (1.8-7.7); BASOPHIL % 0.4 % (0.0-2.0); EOSINOPHIL # 0.2 TH/MM3 (0-0.4); EOSINOPHIL % 1.8 % (0.0-4.0); HEMO FLAGS DIFF FINAL; LYMPH % 21.1 % (9.0-44.0); LYMPHOCYTE # 2.1 TH/MM3 (1.0-4.8); MEAN CELL VOLUME 85.8 FL (80.0-100.0); MEAN CORPUSCULAR HEMOGLOBIN 28.8 PG (27.0-34.0); MEAN CORPUSCULAR HGB CONC 33.6 % (32.0-36.0); MONO % 5.7 % (0.0-8.0); PLATELET COUNT 236 TH/MM3 (150-450); RED BLOOD COUNT 4.43 MIL/MM3 (4.00-5.30); RED CELL DISTRIBUTION WIDTH 12.3 % (11.6-17.2); WHITE BLOOD COUNT 9.7 TH/MM3 (4.0-11.0)
--- NOTE | 2016-08-30 10:20 | HHI.PR ---
Subjective Remarks Patient status post intracranial hemorrhage with R sided hemiparesis. Follow- up for increased urinary frequency, abdominal pain and vomiting. Patient feels better today. She denies any further nausea or vomiting. No significant abdominal pain. Denies any diarrhea. She admits to feeling short of breath which started over the past 2 days, but denies any cough or mucus production. Denies any fevers or chills. Denies hemoptysis or history of DVT/PE. Objective Vitals Vital Signs Date Time Temp Pulse Resp B/P Pulse Ox O2 Delivery O2 Flow Rate FiO2 08/30/16 08:00 97.7 72 16 131/70 97 08/29/16 20:00 98.8 80 18 114/70 94 08/29/16 13:00 96.5 87 20 100/67 97 I/O 08/29/16 08/29/16 08/29/16 08/30/16 08/30/16 08/30/16 07:00 15:00 23:00 07:00 15:00 23:00 Intake Total 240 ml 1310 ml 300 ml Output Total 500 ml Balance 240 ml -500 ml 1310 ml 300 ml Intake Oral 240 ml 1310 ml 300 ml Output Urine Total 500 ml # Voids 3 4 6 4 # Bowel Movements 0 Result Diagram: 08/30/16 0912 08/29/16 0823 Imaging Chest x-ray 08/30 personally interpreted without acute disease. Abdomen/Pelvis CT 08/29/16 0000 Signed Impressions: Service Date/Time: Monday, August 29, 2016 12:24 - CONCLUSION: 1. There are tiny obstructing stones in the left kidney and old healed fractures of the pelvic bones. 2. Mild right lung base atelectasis and/or infiltrate is seen a small hiatal hernia. Braden Murrieta MD Chest X-Ray 05/12/16 0600 Signed Impressions: Service Date/Time: Thursday, May 12, 2016 05:16 - CONCLUSION: No acute disease. Nadir Hebert MD Liver Ultrasound 05/11/16 0000 Signed Impressions: Service Date/Time: Wednesday, May 11, 2016 08:30 - CONCLUSION: 1. Liver is slightly echogenic which can be seen with fatty infiltration/hepatocellular dysfunction. 2. No evidence for cholelithiasis. Geremias Smith MD Head Magnetic Resonance Angiography 05/11/16 0000 Signed Impressions: Service Date/Time: Wednesday, May 11, 2016 16:21 - CONCLUSION: No acute [place] vascular abnormalities. Jeremy Toledo MD Brain MRI 05/11/16 0000 Signed Impressions: Service Date/Time: Wednesday, May 11, 2016 16:21 - CONCLUSION: 1. Focal acute intraparenchymal hemorrhage in the left thalamus measuring 2.8 cm most likely representing a focal hemorrhagic infarction. 2. Bilateral cortical atrophy and mild chronic white matter changes. 3. No enhancing mass occupying lesions are demonstrated. Estrada Vigil MD Abdomen X-Ray 05/11/16 0000 Signed Impressions: Service Date/Time: Wednesday, May 11, 2016 16:03 - CONCLUSION: No evidence of obstruction. No MRI incompatible foreign body is identified. Estrada Vigil MD Head CT 05/10/16 1431 Signed Impressions: Service Date/Time: Tuesday, May 10, 2016 15:07 - CONCLUSION: 1. 2.3 cm left thalamic hypertensive type hemorrhage with approximately 4 mm of [id number] subfalcine shift. 2. Mild periventricular small vessel ischemic demyelination. 3. Results were called to Dr. Barboza at the time of this dictation. Nicholas Dove MD Objective Remarks GENERAL: Thin, chronically ill appearing patient in no apparent distress. SKIN: Warm and dry. HEAD: Normocephalic. CARDIOVASCULAR: Regular rate and rhythm. RESPIRATORY: No accessory muscle use. Mild expiratory wheezing, but no rales or rhonchi. Breath sounds equal bilaterally. GASTROINTESTINAL: Normoactive bowel sounds over the left abdomen. Abdomen soft , nontender, nondistended. No guarding. NEUROLOGICAL: Awake and alert. PSYCHIATRIC: Insight and judgment normal. 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 No abdominal pain on exam. Still gets subjective intermittent pain like before, but yesterday's symptoms resolved. No further vomiting. WBC count improved 18.7-->9.7. Hemoglobin normal. BUN improved 21-->17. AST stable at 109. ALT decreased to 211 from 230 on 08/20. Lipase normal. No diarrhea. -UA personally reviewed without infection. -CT abdomen and pelvis shows no free fluid or bowel obstruction. No evidence of diverticulitis. There are some nonobstructing stones left kidney and benign- appearing lymph nodes within the german hepatis and retroperitoneum. No mass, abscess formation, or adenopathy within the pelvis. Old healed right sacral and appear pubic ramus fracture. SOB: Over the last 2 days. Unlikely to be pulmonary embolus as patient has HR 72 and oxygen saturation 97% on room air. RR normal. WBC normal today. No crackles on exam, only minor wheezing throughout. CT of the abdomen does show right lung base atelectasis or infiltrate. -Chest x-ray performed today, personally interpreted with no evidence of infiltrate or effusion. -Incentive spirometry ordered. 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 Venegas has evaluated the patient. The bleed has been stable on repeat head CT. No surgery needed. Speech therapy has been following the patient and last documented diet recommendation was 05/24/16 to indicate mechanical soft diet with thin liquids. As per continue speech therapy it would appear as if the patient has been refusing therapy for at least 90% of the time. Reconsult ST for swallow evaluation as patient desires advanced diet. Occupational therapy indicates OT at rehabilitation. Will need intensive occupational therapy evaluation until patient cleared by OT for discharge or patient's functional capacity can no longer improve Physical therapy indicating PT at rehabilitation. We'll need to continue intensive physical therapy, continue right AFO. Continue Norflex bid prn muscle spasms on 08/14/16. Right arm pain, controlled Continue Neurontin for right arm neuropathic pain Increased urinary frequency: BNP was performed on 07/25, sodium level was normal. No signs of central DI. Urinalysis was again performed on 07/25 which did not indicate any signs of infection Patient had increased urinary voids, but volume of urine output itself was wnl. Continue Belladonna suppository which has provided great improvement per patient. Still has increased frequency of voids, but volume is not being consistently measured. Monitor I & O. Hypertension: Intermittent hypertension, currently controlled. Norvasc 10 mg daily PRN clonidine and enalapril for SBP >160. Continue to monitor Alcohol and cocaine abuse dependence patient previously counseled. Status post thiamine Tobacco abuse Counseled on cessation Chronic hepatitis C, chronic Patient with chronic transaminitis, stable Liver ultrasound showed fatty infiltration Anxiety: controlled Seroquel low-dose initiated on 05/27. GI prophylaxis: Justyna-colace as needed. Patient told to ask for prn dyspepsia medication, Maalox and TUMS. DVT prophylaxis Sequential compression devices. Discharge Planning Awaiting decision from the [facility] if they will accept patient. Occupational therapy recommends shower bench, 3-1 bedside commode for discharge. PT recommends right AFO. Elisabeth Church Aug 30, 2016 10:20
[2016-08-30 10:25] LABS: POTASSIUM 3.8 MEQ/L (3.5-5.1)
[2016-08-30 10:31] LABS: BICARBONATE 26.2 MEQ/L (21.0-32.0)
--- NOTE | 2016-08-30 10:40 | RADHPO ---
EXAM DATE/TIME: 08/30/2016 09:59 [facility] COMPARISON: CHEST SINGLE AP, May 12, 2016, 5:16. INDICATIONS : Short of breath. MEDICAL HISTORY : Hypertension. SURGICAL HISTORY : None. ENCOUNTER: Initial ACUITY: 1 day PAIN SCORE: 2/10 LOCATION: chest FINDINGS: A single view of the chest demonstrates the lungs to be symmetrically aerated without evidence of mas s, infiltrate or effusion. The cardiomediastinal contours are unremarkable. Osseous structures are intact. CONCLUSION: No acute cardiopulmonary disease. Jeremy Moseley MD on August 30, 2016 at 10:38 Board Certified Radiologist. This report was verified electronically.
[2016-08-30 20:00] VITALS: BP 125/74; PULSE 84; RESP 20; TEMP 98.8; O2SAT 93
[2016-08-30] MEDS: ACETAMINOPHEN 325 MG TAB PO PRN (20:43)
[2016-08-30] MEDS: BELLADONNA ALKALOIDS/OPIUM 60 MG SUPP RECTAL SCH (20:43)
[2016-08-30] MEDS: QUEtiapine FUMARATE 25 MG TAB PO SCH (20:43)
[2016-08-30] MEDS: ORPHENADRINE CITRATE 100 MG SUSTAINED RELEASE TAB PO PRN (20:43)
[2016-08-31 08:59] VITALS: BP 124/82; PULSE 75; RESP 20; TEMP 95.8; O2SAT 94
[2016-08-31] MEDS: POTASSIUM CHLORIDE 10 MEQ CONTROLLED RELEASE TAB PO SCH (09:15)
[2016-08-31] MEDS: FAMOTIDINE 20 MG TAB PO SCH ×2 (09:15→21:04)
[2016-08-31] MEDS: GABAPENTIN 100 MG CAP PO SCH ×3 (09:16→18:54)
[2016-08-31] MEDS: amLODIPine BESYLATE 5 MG TAB PO SCH (09:16)
--- NOTE | 2016-08-31 11:22 | HHI.PR ---
Subjective Remarks Patient seen and examined today. Patient denies any new complaints. No change in clinical status. Objective Vitals Vital Signs Date Time Temp Pulse Resp B/P Pulse Ox O2 Delivery O2 Flow Rate FiO2 08/31/16 08:59 95.8 75 20 124/82 94 08/30/16 20:00 98.8 84 20 125/74 93 I/O 08/30/16 08/30/16 08/30/16 08/31/16 08/31/16 08/31/16 07:00 15:00 23:00 07:00 15:00 23:00 Intake Total 300 ml 0 ml 480 ml Output Total 1 ml Balance 300 ml 0 ml 479 ml Intake Oral 300 ml 480 ml IV Total 0 ml Stool Total 1 ml # Voids 4 3 7 Result Diagram: 08/30/1691108/30/1612 Objective Remarks GENERAL: Well-developed, well-nourished, in no acute distress. alert and orientated HEENT: Head is normocephalic without any lesions or masses noted right facial droop. NECK: Supple without any masses. Trachea midline no deviation. CARDIAC: Regular rhythm, regular rate. S1/S2 are heard. No murmurs gallops or rubs. LUNGS: Clear to auscultation bilaterally. No wheeze, rhonchi or rales. No use of accessory muscles on inspiration or expiration. ABDOMEN: Soft, nontender. Nondistended. Bowel sounds heard in all 4 quadrants. No organomegaly or masses. Negative rebound, negative guarding EXTREMITIES: No edema, pulses are equal bilaterally. No cyanosis or clubbing NEUROLOGY: Mood and affect appear appropriate. Dense right hemiparesis which appears to be improving in the lower extremity. Patient is able to move her right hand second third and fourth digit. 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 Venegas has evaluated the patient. The bleed has been stable on repeat head CT. No surgery needed. Speech therapy has been following the patient and last documented diet recommendation was 05/24/16 to indicate mechanical soft diet with thin liquids. As per continue speech therapy it would appear as if the patient has been refusing therapy for at least 90% of the time. We'll need to continue speech therapy until they indicate the patient no longer requires therapy Occupational therapy indicates OT at rehabilitation. Will need intensive occupational therapy evaluation until patient cleared by OT for discharge or patient's functional capacity can no longer improve, OT is not seen the patient in 9 days, patient is improving with able to move her fingers now and lift her leg off the bed. Patient will need to continue occupational therapy until discharge Physical therapy indicating PT at rehabilitation. We'll need to continue intensive physical therapy, continue right AFO, Norflex for muscle spasms Abdominal pain, resolved Laboratory studies do not indicate any acute abnormality CT scan did not indicate any abnormality Right arm pain, controlled Continue Neurontin for right arm neuropathic pain Dysuria, urinary frequency BNP was performed, sodium level was normal. No signs of central DI Urinalysis was performed which did not indicate any signs of infection Belladonna rectal suppository Hypertension, systolic blood pressure 114-131 Norvasc 5 mg daily Vasotec, clonidine as needed Hypokalemia, stable Patient is on potassium replacement Monitor BMP as needed Alcohol and cocaine abuse dependence patient previously counseled. Status post thiamine Tobacco abuse Counseled on cessation Chronic hepatitis C, chronic Patient with chronic transaminitis continue to follow, which appear to be stable liver ultrasound showed fatty infiltration Anxiety. Controlled Seroquel low-dose initiated on 05/27. Bowel regimen Justyna-Colace as needed DVT prophylaxis Sequential compression devices. Discharge Planning Patient has no funding for rehabilitation. Patient was denied SSI. residential mortgage manager is following up with [facility] regarding status of applications. Occupational therapy recommends shower bench, 3-1 bedside commode for discharge. PT recommends right AFO. 08/16, case management spoke with patient's mother who states that she'll assist in discharge planning. Awaiting decision from the [facility] in [place] 08/17/16 1443 AWAITING DECISION FROM THE [facility] IF THEY WILL ACCEPT. PATIENT AND FAMILY IN AGREEMENT WITH [facility] JUST NEED ACCEPTING SNF. CONT TO WORK ON THIS PROCESS GISELA ORTIZ LPN/Jaycob Wallace Aug 31, 2016 11:22
[2016-08-31 20:00] VITALS: BP 135/78; PULSE 78; RESP 19; TEMP 97.9; O2SAT 96
[2016-08-31] MEDS: QUEtiapine FUMARATE 25 MG TAB PO SCH (21:02)
[2016-08-31] MEDS: BELLADONNA ALKALOIDS/OPIUM 60 MG SUPP RECTAL SCH (21:02)
[2016-08-31] MEDS: ORPHENADRINE CITRATE 100 MG SUSTAINED RELEASE TAB PO PRN (21:02)
[2016-08-31] MEDS: ACETAMINOPHEN 325 MG TAB PO PRN (21:03)
[2016-09-01 08:00] VITALS: BP 141/71; PULSE 73; RESP 18; TEMP 98.1; O2SAT 92
--- NOTE | 2016-09-01 08:43 | HHI.PR ---
Subjective Remarks Patient seen and examined today. Patient denies any new complaints. No change in clinical status. Objective Vitals Vital Signs Date Time Temp Pulse Resp B/P Pulse Ox O2 Delivery O2 Flow Rate FiO2 09/01/16 08:00 98.1 73 18 141/71 92 08/31/16 20:00 97.9 78 19 135/78 96 08/31/16 08:59 95.8 75 20 124/82 94 I/O 08/31/16 08/31/16 08/31/16 09/01/16 09/01/16 09/01/16 07:00 15:00 23:00 07:00 15:00 23:00 Intake Total 800 ml 480 ml 480 ml Balance 800 ml 480 ml 480 ml Intake Oral 800 ml 480 ml 480 ml IV Total 0 ml 0 ml # Voids 7 4 1 2 # Bowel Movements 0 0 0 Result Diagram: 08/30/1691108/30/16911 Objective Remarks GENERAL: Well-developed, well-nourished, in no acute distress. alert and orientated HEENT: Head is normocephalic without any lesions or masses noted right facial droop. NECK: Supple without any masses. Trachea midline no deviation. CARDIAC: Regular rhythm, regular rate. S1/S2 are heard. No murmurs gallops or rubs. LUNGS: Clear to auscultation bilaterally. No wheeze, rhonchi or rales. No use of accessory muscles on inspiration or expiration. ABDOMEN: Soft, nontender. Nondistended. Bowel sounds heard in all 4 quadrants. No organomegaly or masses. Negative rebound, negative guarding EXTREMITIES: No edema, pulses are equal bilaterally. No cyanosis or clubbing NEUROLOGY: Mood and affect appear appropriate. Dense right hemiparesis which appears to be improving in the lower extremity. Patient is able to move her right hand second third and fourth digit. 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 Venegas has evaluated the patient. The bleed has been stable on repeat head CT. No surgery needed. Speech therapy has been following the patient and last documented diet recommendation was 05/24/16 to indicate mechanical soft diet with thin liquids. As per continue speech therapy it would appear as if the patient has been refusing therapy for at least 90% of the time. We'll need to continue speech therapy until they indicate the patient no longer requires therapy Occupational therapy indicates OT at rehabilitation. Will need intensive occupational therapy evaluation until patient cleared by OT for discharge or patient's functional capacity can no longer improve, OT is not seen the patient in 9 days, patient is improving with able to move her fingers now and lift her leg off the bed. Patient will need to continue occupational therapy until discharge Physical therapy indicating PT at rehabilitation. We'll need to continue intensive physical therapy, continue right AFO, Norflex for muscle spasms Abdominal pain, resolved Laboratory studies did not indicate any acute abnormality CT scan did not indicate any abnormality Right arm pain, controlled Continue Neurontin for right arm neuropathic pain Dysuria, urinary frequency BNP was performed, sodium level was normal. No signs of central DI Urinalysis was performed which did not indicate any signs of infection Belladonna rectal suppository Hypertension, Norvasc 5 mg daily Vasotec, clonidine as needed Hypokalemia, stable Patient is on potassium replacement Monitor BMP as needed Alcohol and cocaine abuse dependence patient previously counseled. Status post thiamine Tobacco abuse Counseled on cessation Chronic hepatitis C, chronic Patient with chronic transaminitis continue to follow, which appear to be stable liver ultrasound showed fatty infiltration Anxiety. Controlled Seroquel low-dose initiated on 05/27. Bowel regimen Justyna-Colace as needed DVT prophylaxis Sequential compression devices. Discharge Planning Patient has no funding for rehabilitation. Patient was denied SSI. relocation manager is following up with [facility] regarding status of applications. Occupational therapy recommends shower bench, 3-1 bedside commode for discharge. PT recommends right AFO. 08/16, case management spoke with patient's mother who states that she'll assist in discharge planning. Awaiting decision from the [facility] in [place] 08/17/16 1443 AWAITING DECISION FROM THE [facility] IF THEY WILL ACCEPT. PATIENT AND FAMILY IN AGREEMENT WITH [facility] JUST NEED ACCEPTING SNF. CONT TO WORK ON THIS PROCESS GISELA ORTIZ LPN/Jaycob Wallace Sep 01, 2016 08:43
[2016-09-01] MEDS: amLODIPine BESYLATE 5 MG TAB PO SCH (09:06)
[2016-09-01] MEDS: POTASSIUM CHLORIDE 10 MEQ CONTROLLED RELEASE TAB PO SCH (09:06)
[2016-09-01] MEDS: GABAPENTIN 100 MG CAP PO SCH ×3 (09:06→17:23)
[2016-09-01] MEDS: FAMOTIDINE 20 MG TAB PO SCH ×2 (09:06→21:13)
[2016-09-01] MEDS: ALUMINUM/MAGNESIUM/SIMETH 30 ML CUP PO PRN (13:30)
[2016-09-01 20:19] VITALS: BP 142/80; PULSE 84; RESP 22; TEMP 98.8; O2SAT 99
[2016-09-01] MEDS: BELLADONNA ALKALOIDS/OPIUM 60 MG SUPP RECTAL SCH (21:12)
[2016-09-01] MEDS: ACETAMINOPHEN 325 MG TAB PO PRN (21:12)
[2016-09-01] MEDS: ORPHENADRINE CITRATE 100 MG SUSTAINED RELEASE TAB PO PRN (21:13)
[2016-09-01] MEDS: QUEtiapine FUMARATE 25 MG TAB PO SCH (21:13)
[2016-09-02 08:00] VITALS: BP 119/74; PULSE 75; RESP 16; TEMP 97.9; O2SAT 94
--- NOTE | 2016-09-02 09:03 | HHI.PR ---
Subjective Remarks Patient seen and examined today. Patient denies any new complaints. No change in clinical status. Objective Vitals Vital Signs Date Time Temp Pulse Resp B/P Pulse Ox O2 Delivery O2 Flow Rate FiO2 09/02/16 08:00 97.9 75 16 119/74 94 09/01/16 20:19 98.8 84 22 142/80 99 I/O 09/01/16 09/01/16 09/01/16 09/02/16 09/02/16 09/02/16 07:00 15:00 23:00 07:00 15:00 23:00 Intake Total 480 ml 520 ml 0 ml Balance 480 ml 520 ml 0 ml Intake Oral 480 ml 520 ml IV Total 0 ml # Voids 2 3 1 1 # Bowel Movements 0 1 0 Result Diagram: 08/30/1691108/30/16911 Objective Remarks GENERAL: Well-developed, well-nourished, in no acute distress. alert and orientated HEENT: Head is normocephalic without any lesions or masses noted right facial droop. NECK: Supple without any masses. Trachea midline no deviation. CARDIAC: Regular rhythm, regular rate. S1/S2 are heard. No murmurs gallops or rubs. LUNGS: Clear to auscultation bilaterally. No wheeze, rhonchi or rales. No use of accessory muscles on inspiration or expiration. ABDOMEN: Soft, nontender. Nondistended. Bowel sounds heard in all 4 quadrants. No organomegaly or masses. Negative rebound, negative guarding EXTREMITIES: No edema, pulses are equal bilaterally. No cyanosis or clubbing NEUROLOGY: Mood and affect appear appropriate. Dense right hemiparesis which appears to be improving in the lower extremity. Patient is able to move her right hand second third and fourth digit. 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 Venegas has evaluated the patient. The bleed has been stable on repeat head CT. No surgery needed. Speech therapy has been following the patient and last documented diet recommendation was 05/24/16 to indicate mechanical soft diet with thin liquids. As per continue speech therapy it would appear as if the patient has been refusing therapy for at least 90% of the time. We'll need to continue speech therapy until they indicate the patient no longer requires therapy Occupational therapy indicates OT at rehabilitation. Will need intensive occupational therapy evaluation until patient cleared by OT for discharge or patient's functional capacity can no longer improve, OT is not seen the patient in 9 days, patient is improving with able to move her fingers now and lift her leg off the bed. Patient will need to continue occupational therapy until discharge Physical therapy indicating PT at rehabilitation. We'll need to continue intensive physical therapy, continue right AFO, Norflex for muscle spasms Abdominal pain, resolved Laboratory studies did not indicate any acute abnormality CT scan did not indicate any abnormality Right arm pain, controlled Continue Neurontin for right arm neuropathic pain Dysuria, urinary frequency BNP was performed, sodium level was normal. No signs of central DI Urinalysis was performed which did not indicate any signs of infection Belladonna rectal suppository Hypertension, Norvasc 5 mg daily Vasotec, clonidine as needed Hypokalemia, stable Patient is on potassium replacement Monitor BMP as needed Alcohol and cocaine abuse dependence patient previously counseled. Status post thiamine Tobacco abuse Counseled on cessation Chronic hepatitis C, chronic Patient with chronic transaminitis continue to follow, which appear to be stable liver ultrasound showed fatty infiltration Anxiety. Controlled Seroquel low-dose initiated on 05/27. Bowel regimen Justyna-Colace as needed DVT prophylaxis Sequential compression devices. Discharge Planning Patient has no funding for rehabilitation. Patient was denied SSI. parts manager is following up with [facility] regarding status of applications. Occupational therapy recommends shower bench, 3-1 bedside commode for discharge. PT recommends right AFO. 08/16, case management spoke with patient's mother who states that she'll assist in discharge planning. Awaiting decision from the [facility] in [place] 08/17/16 1443 AWAITING DECISION FROM THE [facility] IF THEY WILL ACCEPT. PATIENT AND FAMILY IN AGREEMENT WITH [facility] JUST NEED ACCEPTING SNF. CONT TO WORK ON THIS PROCESS GISELA ORTIZ LPN/Jaycob Wallace Sep 02, 2016 09:03
[2016-09-02] MEDS: GABAPENTIN 100 MG CAP PO SCH ×3 (09:23→17:41)
[2016-09-02] MEDS: FAMOTIDINE 20 MG TAB PO SCH ×2 (09:23→20:01)
[2016-09-02] MEDS: amLODIPine BESYLATE 5 MG TAB PO SCH (09:23)
[2016-09-02] MEDS: POTASSIUM CHLORIDE 10 MEQ CONTROLLED RELEASE TAB PO SCH (09:23)
[2016-09-02 20:00] VITALS: BP 142/84; PULSE 80; RESP 18; TEMP 97.7; O2SAT 96
[2016-09-02] MEDS: BELLADONNA ALKALOIDS/OPIUM 60 MG SUPP RECTAL SCH (20:01)
[2016-09-02] MEDS: QUEtiapine FUMARATE 25 MG TAB PO SCH (20:01)
[2016-09-02] MEDS: ACETAMINOPHEN 325 MG TAB PO PRN (20:06)
[2016-09-02] MEDS: ORPHENADRINE CITRATE 100 MG SUSTAINED RELEASE TAB PO PRN (20:10)
[2016-09-03 08:00] VITALS: BP 126/76; PULSE 77; RESP 18; TEMP 97.7; O2SAT 95
--- NOTE | 2016-09-03 08:41 | HHI.PR ---
Subjective Remarks Patient seen and examined today. Patient denies any new complaints. No change in clinical status. Objective Vitals Vital Signs Date Time Temp Pulse Resp B/P Pulse Ox O2 Delivery O2 Flow Rate FiO2 09/02/16 20:00 97.7 80 18 142/84 96 I/O 09/02/16 09/02/16 09/02/16 09/03/16 09/03/16 09/03/16 07:00 15:00 23:00 07:00 15:00 23:00 Intake Total 1360 ml Balance 1360 ml Intake Oral 1360 ml # Voids 1 2 1 # Bowel Movements 0 3 Result Diagram: 08/30/1691108/30/16911 Objective Remarks GENERAL: Well-developed, well-nourished, in no acute distress. alert and orientated HEENT: Head is normocephalic without any lesions or masses noted right facial droop. NECK: Supple without any masses. Trachea midline no deviation. CARDIAC: Regular rhythm, regular rate. S1/S2 are heard. No murmurs gallops or rubs. LUNGS: Clear to auscultation bilaterally. No wheeze, rhonchi or rales. No use of accessory muscles on inspiration or expiration. ABDOMEN: Soft, nontender. Nondistended. Bowel sounds heard in all 4 quadrants. No organomegaly or masses. Negative rebound, negative guarding EXTREMITIES: No edema, pulses are equal bilaterally. No cyanosis or clubbing NEUROLOGY: Mood and affect appear appropriate. Dense right hemiparesis which appears to be improving in the lower extremity. Patient is able to move her right hand second third and fourth digit. 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 Venegas has evaluated the patient. The bleed has been stable on repeat head CT. No surgery needed. Speech therapy has been following the patient continue on soft diet with thin liquids Occupational therapy indicates OT at rehabilitation. Patient will need to continue occupational therapy until discharge Physical therapy indicating PT at rehabilitation. We'll need to continue physical therapy, continue right AFO, Norflex for muscle spasms Abdominal pain, resolved Laboratory studies did not indicate any acute abnormality CT scan did not indicate any abnormality Right arm pain, controlled Continue Neurontin for right arm neuropathic pain Dysuria, urinary frequency BNP was performed, sodium level was normal. No signs of central DI Urinalysis was performed which did not indicate any signs of infection Belladonna rectal suppository Hypertension, Norvasc 5 mg daily Vasotec, clonidine as needed Hypokalemia, stable Patient is on potassium replacement Monitor BMP as needed Alcohol and cocaine abuse dependence patient previously counseled. Status post thiamine Tobacco abuse Counseled on cessation Chronic hepatitis C, chronic Patient with chronic transaminitis continue to follow, which appear to be stable liver ultrasound showed fatty infiltration Anxiety. Controlled Seroquel low-dose initiated on 05/27. Bowel regimen Justyna-Colace as needed DVT prophylaxis Sequential compression devices. Discharge Planning Patient has no funding for rehabilitation. Patient was denied SSI. manager beauty is following up with [facility] regarding status of applications. Occupational therapy recommends shower bench, 3-1 bedside commode for discharge. PT recommends right AFO. 08/16, case management spoke with patient's mother who states that she'll assist in discharge planning. Awaiting decision from the [place] in [place] 08/17/16 1443 AWAITING DECISION FROM THE [facility] IF THEY WILL ACCEPT. PATIENT AND FAMILY IN AGREEMENT WITH [facility] JUST NEED ACCEPTING SNF. CONT TO WORK ON THIS PROCESS GISELA ORTIZ LPN/Jaycob Wallace Sep 03, 2016 08:41
[2016-09-03] MEDS: POTASSIUM CHLORIDE 10 MEQ CONTROLLED RELEASE TAB PO SCH (10:45)
[2016-09-03] MEDS: amLODIPine BESYLATE 5 MG TAB PO SCH (10:45)
[2016-09-03] MEDS: GABAPENTIN 100 MG CAP PO SCH ×2 (10:45→13:00)
[2016-09-03] MEDS: FAMOTIDINE 20 MG TAB PO SCH ×2 (10:45→21:08)
[2016-09-03 20:00] VITALS: BP_SYST 133; BP_SYST 139; BP_DIAS 80; PULSE 84; PULSE 86; RESP 16; RESP 18; TEMP 98.1; TEMP 98.7; O2SAT 96; O2SAT 97
[2016-09-03] MEDS: QUEtiapine FUMARATE 25 MG TAB PO SCH (21:08)
[2016-09-03] MEDS: BELLADONNA ALKALOIDS/OPIUM 60 MG SUPP RECTAL SCH (21:08)
[2016-09-03] MEDS: ACETAMINOPHEN 325 MG TAB PO PRN (21:12)
[2016-09-04 08:26] VITALS: BP 149/85; PULSE 72; RESP 22; TEMP 98.7; O2SAT 98
--- NOTE | 2016-09-04 08:49 | HHI.PR ---
Subjective Remarks Patient seen and examined today. Patient denies any new complaints. No change in clinical status. Objective Vitals Vital Signs Date Time Temp Pulse Resp B/P Pulse Ox O2 Delivery O2 Flow Rate FiO2 09/03/16 20:00 98.7 86 16 139/80 96 I/O 09/03/16 09/03/16 09/03/16 09/04/16 09/04/16 09/04/16 07:00 15:00 23:00 07:00 15:00 23:00 Intake Total 1250 ml 240 ml 360 ml Balance 1250 ml 240 ml 360 ml Intake Oral 1250 ml 240 ml 360 ml # Voids 4 2 3 # Bowel Movements 0 2 Objective Remarks GENERAL: Well-developed, well-nourished, in no acute distress. alert and orientated HEENT: Head is normocephalic without any lesions or masses noted right facial droop. NECK: Supple without any masses. Trachea midline no deviation. CARDIAC: Regular rhythm, regular rate. S1/S2 are heard. No murmurs gallops or rubs. LUNGS: Clear to auscultation bilaterally. No wheeze, rhonchi or rales. No use of accessory muscles on inspiration or expiration. ABDOMEN: Soft, nontender. Nondistended. Bowel sounds heard in all 4 quadrants. No organomegaly or masses. Negative rebound, negative guarding EXTREMITIES: No edema, pulses are equal bilaterally. No cyanosis or clubbing NEUROLOGY: Mood and affect appear appropriate. Dense right hemiparesis which appears to be improving in the lower extremity. Patient is able to move her right hand second third and fourth digit. 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 Venegas has evaluated the patient. The bleed has been stable on repeat head CT. No surgery needed. Speech therapy has been following the patient continue on soft diet with thin liquids Occupational therapy indicates OT at rehabilitation. Patient will need to continue occupational therapy until discharge Physical therapy indicating PT at rehabilitation. We'll need to continue physical therapy, continue right AFO, Norflex for muscle spasms Abdominal pain, resolved Laboratory studies did not indicate any acute abnormality CT scan did not indicate any abnormality Right arm pain, controlled Continue Neurontin for right arm neuropathic pain Dysuria, urinary frequency BNP was performed, sodium level was normal. No signs of central DI Urinalysis was performed which did not indicate any signs of infection Belladonna rectal suppository Hypertension, Norvasc 10 mg daily Vasotec, clonidine as needed Hypokalemia, stable Patient is on potassium replacement Monitor BMP as needed Alcohol and cocaine abuse dependence patient previously counseled. Status post thiamine Tobacco abuse Counseled on cessation Chronic hepatitis C, chronic Patient with chronic transaminitis continue to follow, which appear to be stable liver ultrasound showed fatty infiltration Anxiety. Controlled Seroquel low-dose initiated on 05/27. Bowel regimen Justyna-Colace as needed DVT prophylaxis Sequential compression devices. Discharge Planning Patient has no funding for rehabilitation. Patient was denied SSI. social services manager is following up with [facility] regarding status of applications. Occupational therapy recommends shower bench, 3-1 bedside commode for discharge. PT recommends right AFO. 08/16, case management spoke with patient's mother who states that she'll assist in discharge planning. Awaiting decision from the [facility] in [place] 08/17/16 1443 AWAITING DECISION FROM THE [facility] IF THEY WILL ACCEPT. PATIENT AND FAMILY IN AGREEMENT WITH [facility] JUST NEED ACCEPTING SNF. CONT TO WORK ON THIS PROCESS GISELA ORTIZ LPN/Jaycob Wallace Sep 04, 2016 08:49
[2016-09-04] MEDS: GABAPENTIN 100 MG CAP PO SCH ×4 (09:00→18:00)
[2016-09-04] MEDS: POTASSIUM CHLORIDE 10 MEQ CONTROLLED RELEASE TAB PO SCH (10:39)
[2016-09-04] MEDS: FAMOTIDINE 20 MG TAB PO SCH ×2 (10:39→20:07)
[2016-09-04] MEDS: BELLADONNA ALKALOIDS/OPIUM 60 MG SUPP RECTAL SCH (20:07)
[2016-09-04] MEDS: QUEtiapine FUMARATE 25 MG TAB PO SCH (20:07)
--- NOTE | 2016-09-05 08:49 | HHI.PR ---
Subjective Remarks Patient seen and examined today. Patient denies any new complaints. No change in clinical status. Objective Vitals I/O 09/04/16 09/04/16 09/04/16 09/05/16 09/05/16 09/05/16 07:00 15:00 23:00 07:00 15:00 23:00 Intake Total 360 ml 480 ml 120 ml Balance 360 ml 480 ml 120 ml Intake Oral 360 ml 480 ml 120 ml # Voids 3 2 1 Objective Remarks GENERAL: Well-developed, well-nourished, in no acute distress. alert and orientated HEENT: Head is normocephalic without any lesions or masses noted right facial droop. NECK: Supple without any masses. Trachea midline no deviation. CARDIAC: Regular rhythm, regular rate. S1/S2 are heard. No murmurs gallops or rubs. LUNGS: Clear to auscultation bilaterally. No wheeze, rhonchi or rales. No use of accessory muscles on inspiration or expiration. ABDOMEN: Soft, nontender. Nondistended. Bowel sounds heard in all 4 quadrants. No organomegaly or masses. Negative rebound, negative guarding EXTREMITIES: No edema, pulses are equal bilaterally. No cyanosis or clubbing NEUROLOGY: Mood and affect appear appropriate. Dense right hemiparesis which appears to be improving in the lower extremity. Patient is able to move her right hand second third and fourth digit. 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 Venegas has evaluated the patient. The bleed has been stable on repeat head CT. No surgery needed. Speech therapy has been following the patient continue on soft diet with thin liquids Occupational therapy indicates OT at rehabilitation. Patient will need to continue occupational therapy until discharge Physical therapy indicating PT at rehabilitation. We'll need to continue physical therapy, continue right AFO, Norflex for muscle spasms Abdominal pain, resolved Laboratory studies did not indicate any acute abnormality CT scan did not indicate any abnormality Right arm pain, controlled Continue Neurontin for right arm neuropathic pain Dysuria, urinary frequency, improved BNP was performed, sodium level was normal. No signs of central DI Urinalysis was performed which did not indicate any signs of infection Belladonna rectal suppository Hypertension, stable Norvasc 10 mg daily Vasotec, clonidine as needed Hypokalemia, stable Patient is on potassium replacement Monitor BMP as needed Alcohol and cocaine abuse dependence patient previously counseled. Status post thiamine Tobacco abuse Counseled on cessation Chronic hepatitis C, chronic Patient with chronic transaminitis continue to follow, which appear to be stable liver ultrasound showed fatty infiltration Anxiety. Controlled Seroquel low-dose initiated on 05/27. Bowel regimen Justyna-Colace as needed DVT prophylaxis Sequential compression devices. Discharge Planning Patient has no funding for rehabilitation. Patient was denied SSI. manager games is following up with [facility] regarding status of applications. Occupational therapy recommends shower bench, 3-1 bedside commode for discharge. PT recommends right AFO. 08/16, case management spoke with patient's mother who states that she'll assist in discharge planning. Awaiting decision from the [facility] in [place] 08/17/16 1443 AWAITING DECISION FROM THE [facility] IF THEY WILL ACCEPT. PATIENT AND FAMILY IN AGREEMENT WITH [facility] JUST NEED ACCEPTING SNF. CONT TO WORK ON THIS PROCESS GISELA ORTIZ LPN/Jaycob Wallace Sep 05, 2016 08:49
[2016-09-05 08:56] VITALS: BP 136/83; PULSE 82; RESP 22; TEMP 98.2; O2SAT 96
[2016-09-05] MEDS: POTASSIUM CHLORIDE 10 MEQ CONTROLLED RELEASE TAB PO SCH (09:24)
[2016-09-05] MEDS: GABAPENTIN 100 MG CAP PO SCH ×3 (09:24→16:59)
[2016-09-05] MEDS: FAMOTIDINE 20 MG TAB PO SCH ×2 (09:24→20:54)
[2016-09-05 20:00] VITALS: BP 132/79; PULSE 77; RESP 19; TEMP 98.3; O2SAT 97
[2016-09-05] MEDS: BELLADONNA ALKALOIDS/OPIUM 60 MG SUPP RECTAL SCH (20:54)
[2016-09-05] MEDS: QUEtiapine FUMARATE 25 MG TAB PO SCH (20:54)
[2016-09-06 08:00] VITALS: BP 133/72; PULSE 88; RESP 18; TEMP 98.8; O2SAT 98
--- NOTE | 2016-09-06 08:05 | HHI.PR ---
Subjective Remarks Patient seen and examined today. Patient denies any new complaints. No change in clinical status. Objective Vitals Vital Signs Date Time Temp Pulse Resp B/P Pulse Ox O2 Delivery O2 Flow Rate FiO2 09/05/16 20:00 98.3 77 19 132/79 97 09/05/16 08:56 98.2 82 22 136/83 96 I/O 09/05/16 09/05/16 09/05/16 09/06/16 09/06/16 09/06/16 06:59 14:59 22:59 06:59 14:59 22:59 Intake Total 120 ml 0 ml 480 ml 480 ml Output Total 500 ml 600 ml Balance 120 ml -500 ml -120 ml 480 ml Intake Oral 120 ml 480 ml 480 ml IV Total 0 ml Output Urine Total 500 ml 600 ml # Voids 1 2 6 2 # Bowel Movements 0 0 Objective Remarks GENERAL: Well-developed, well-nourished, in no acute distress. alert and orientated HEENT: Head is normocephalic without any lesions or masses noted right facial droop. NECK: Supple without any masses. Trachea midline no deviation. CARDIAC: Regular rhythm, regular rate. S1/S2 are heard. No murmurs gallops or rubs. LUNGS: Clear to auscultation bilaterally. No wheeze, rhonchi or rales. No use of accessory muscles on inspiration or expiration. ABDOMEN: Soft, nontender. Nondistended. Bowel sounds heard in all 4 quadrants. No organomegaly or masses. Negative rebound, negative guarding EXTREMITIES: No edema, pulses are equal bilaterally. No cyanosis or clubbing NEUROLOGY: Mood and affect appear appropriate. Dense right hemiparesis which appears to be improving in the lower extremity. Patient is able to move her right hand second third and fourth digit. She is able to lift her right leg off the bed, right lower extremity now with 1/5 strength Procedures None Urinary Catheter: No Vascular Central Line Catheter: No A/P Assessment and Plan Left basal ganglia bleed with 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 Venegas has evaluated the patient. The bleed has been stable on repeat head CT. No surgery needed. Speech therapy has been following the patient continue on soft diet with thin liquids Occupational therapy indicates OT at rehabilitation. Patient will need to continue occupational therapy until discharge Physical therapy indicating PT at rehabilitation. We'll need to continue physical therapy, continue right AFO, Norflex for muscle spasms Abdominal pain, resolved Laboratory studies did not indicate any acute abnormality CT scan did not indicate any abnormality Right arm pain, controlled Continue Neurontin for right arm neuropathic pain Dysuria, urinary frequency, improved BNP was performed, sodium level was normal. No signs of central DI Urinalysis was performed which did not indicate any signs of infection Belladonna rectal suppository Hypertension, stable Norvasc 10 mg daily Vasotec, clonidine as needed Hypokalemia, stable Patient is on potassium replacement Monitor BMP as needed Alcohol and cocaine abuse dependence patient previously counseled. Status post thiamine Tobacco abuse Counseled on cessation Chronic hepatitis C, chronic Patient with chronic transaminitis continue to follow monthly. liver ultrasound showed fatty infiltration Anxiety. Controlled Seroquel low-dose initiated on 05/27. Bowel regimen Justyna-Colace as needed DVT prophylaxis Sequential compression devices. Discharge Planning Patient has no funding for rehabilitation. Patient was denied SSI. manager child is following up with [facility] regarding status of applications. Occupational therapy recommends shower bench, 3-1 bedside commode for discharge. PT recommends right AFO. 08/16, case management spoke with patient's mother who states that she'll assist in discharge planning. Awaiting decision from the [facility] in [place] 08/17/16 3023 AWAITING DECISION FROM THE [facility] IF THEY WILL ACCEPT. PATIENT AND FAMILY IN AGREEMENT WITH [facility] JUST NEED ACCEPTING SNF. CONT TO WORK ON THIS PROCESS GISELA ORTIZ LPN/Jaycob Wallace Sep 06, 2016 08:05
[2016-09-06] MEDS: GABAPENTIN 100 MG CAP PO SCH ×3 (08:58→17:59)
[2016-09-06] MEDS: FAMOTIDINE 20 MG TAB PO SCH ×2 (08:58→20:52)
[2016-09-06] MEDS: POTASSIUM CHLORIDE 10 MEQ CONTROLLED RELEASE TAB PO SCH (08:58)
[2016-09-06 18:00] VITALS: BP 128/84; PULSE 75; RESP 21; TEMP 97.9; O2SAT 95
[2016-09-06] MEDS: BELLADONNA ALKALOIDS/OPIUM 60 MG SUPP RECTAL SCH (20:51)
[2016-09-06] MEDS: QUEtiapine FUMARATE 25 MG TAB PO SCH (20:53)
[2016-09-06] MEDS: ACETAMINOPHEN 325 MG TAB PO PRN (21:04)
[2016-09-07] MEDS: GABAPENTIN 100 MG CAP PO SCH ×3 (08:32→17:44)
[2016-09-07] MEDS: FAMOTIDINE 20 MG TAB PO SCH ×2 (08:32→20:22)
[2016-09-07] MEDS: POTASSIUM CHLORIDE 10 MEQ CONTROLLED RELEASE TAB PO SCH (08:32)
[2016-09-07 10:46] VITALS: BP 137/92; PULSE 78; RESP 20; TEMP 97.6; O2SAT 96
--- NOTE | 2016-09-07 19:15 | HHI.PR ---
Subjective Remarks patient denies cp/sob denies fevers/chills no major overnight events Objective Vitals Vital Signs Date Time Temp Pulse Resp B/P Pulse Ox O2 Delivery O2 Flow Rate FiO2 09/07/16 10:46 97.6 78 20 137/92 96 I/O 09/06/16 09/06/16 09/06/16 09/07/16 09/07/16 09/07/16 07:00 15:00 23:00 07:00 15:00 23:00 Intake Total 480 ml 0 ml 600 ml 800 ml Output Total 250 ml Balance 480 ml 0 ml 600 ml 550 ml Intake Oral 480 ml 600 ml 800 ml IV Total 0 ml Output Urine Total 250 ml # Voids 2 4 3 # Bowel Movements 0 1 Imaging Last Impressions Chest X-Ray 08/30/16 0000 Signed Impressions: Service Date/Time: Tuesday, August 30, 2016 09:59 - CONCLUSION: No acute cardiopulmonary disease. Jeremy Moseley MD Abdomen/Pelvis CT 08/29/16 0000 Signed Impressions: Service Date/Time: Monday, August 29, 2016 12:24 - CONCLUSION: 1. There are tiny obstructing stones in the left kidney and old healed fractures of the pelvic bones. 2. Mild right lung base atelectasis and/or infiltrate is seen a small hiatal hernia. Braden Murrieta MD Liver Ultrasound 05/11/16 0000 Signed Impressions: Service Date/Time: Wednesday, May 11, 2016 08:30 - CONCLUSION: 1. Liver is slightly echogenic which can be seen with fatty infiltration/hepatocellular dysfunction. 2. No evidence for cholelithiasis. Geremias Smith MD Head Magnetic Resonance Angiography 05/11/16 0000 Signed Impressions: Service Date/Time: Wednesday, May 11, 2016 16:21 - CONCLUSION: No acute [place] vascular abnormalities. Jeremy Toledo MD Brain MRI 05/11/16 0000 Signed Impressions: Service Date/Time: Wednesday, May 11, 2016 16:21 - CONCLUSION: 1. Focal acute intraparenchymal hemorrhage in the left thalamus measuring 2.8 cm most likely representing a focal hemorrhagic infarction. 2. Bilateral cortical atrophy and mild chronic white matter changes. 3. No enhancing mass occupying lesions are demonstrated. Estrada Vigil MD Abdomen X-Ray 05/11/16 0000 Signed Impressions: Service Date/Time: Wednesday, May 11, 2016 16:03 - CONCLUSION: No evidence of obstruction. No MRI incompatible foreign body is identified. Estrada Vigil MD Head CT 05/10/16 1431 Signed Impressions: Service Date/Time: Tuesday, May 10, 2016 15:07 - CONCLUSION: 1. 2.3 cm left thalamic hypertensive type hemorrhage with approximately 4 mm of [id number] subfalcine shift. 2. Mild periventricular small vessel ischemic demyelination. 3. Results were called to Dr. Barboza at the time of this dictation. Nicholas Dove MD Objective Remarks Gen.: Patient is awake and alert, nad HEENT: Neck supple, no JVD, trachea midline CVS: Tachycardic rate and rhythm, normal S1-S2 without rub murmur gallop Respiratory: Clear to auscultation bilaterally no wheezes rales or rhonchi GI: Soft, nontender, nondistended, no organomegaly, no rebound tenderness Extremities: Positive multiple old ecchymotic areas, positive pulses, capillary refills intact, no clubbing Skin: Positive old ecchymosis, bruising to the anterior chest, left shoulder Neuro: Awake and alert 1, pupils are equal, extraocular muscles are intact, cranial nerves are grossly intact, neck is supple, Normal strength L upper and lower ext, RUE 4/5 and RLE 3/5 strength Procedures None Medications and IVs Current Medications Medications (Trade) Dose Ordered Sig/Nicole Route Start Time Stop Time Status Last Admin (Neurontin) 100 mg TID PO 05/21/16 18:00 09/07/16 17:44 (SEROquel) 12.5 mg HS PO 05/27/16 21:00 09/06/16 20:53 (Pill Splitter) 1 ea UNSCH PRN OTHER 05/27/16 11:15 (KCl) 10 meq DAILY PO 06/06/16 10:00 09/07/16 08:32 (Mag-Al Plus Susp Liq) 30 ml Q6H PRN PO 06/09/16 13:30 09/01/16 13:30 (Tums Chew) 500 mg Q6H PRN CHEW 06/09/16 13:30 07/31/16 08:48 (Zofran Odt) 4 mg Q6H PRN PO 06/18/16 10:00 08/29/16 04:28 (B & O Supp) 60 mg HS RECTAL 08/03/16 21:00 09/06/16 20:51 (Justyna-Colace) 2 tab BID PRN PO 08/02/16 17:00 (Pepcid) 20 mg BID PO 08/07/16 21:00 09/07/16 08:32 (Norflex Cr) 100 mg Q12H PRN PO 08/14/16 12:00 09/02/16 20:10 (Tylenol) 650 mg Q6H PRN PO 08/29/16 08:15 09/06/16 21:04 (Norvasc) 10 mg DAILY PO 09/04/16 09:00 09/07/16 08:32 Urinary Catheter: No Vascular Central Line Catheter: No A/P Problem List: (1) Shortness of breath ICD Code: R06.02 Status: Acute (2) Fever ICD Code: R50.9 Status: Resolved (3) Abdominal pain ICD Code: R10.9 Status: Acute (4) 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 (5) Hemiparesis affecting right side as late effect of cerebrovascular accident (CVA) ICD Code: I69.351 Status: Chronic (6) Hypertensive emergency ICD Code: I10 Status: Resolved (7) Metabolic acidosis ICD Code: E87.2 Status: Resolved (8) UTI (urinary tract infection) ICD Code: N39.0 Status: Resolved (9) Vaginal discharge ICD Code: N89.8 Status: Resolved (10) Increased urinary frequency ICD Code: R35.0 Status: Resolved Assessment and Plan Left basal ganglia bleed with 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 Venegas has evaluated the patient. The bleed has been stable on repeat head CT. No surgery needed. Speech therapy has been following the patient continue on soft diet with thin liquids Occupational therapy indicates OT at rehabilitation. Patient will need to continue occupational therapy until discharge Physical therapy indicating PT at rehabilitation. We'll need to continue physical therapy, continue right AFO, Norflex for muscle spasms Abdominal pain, resolved Laboratory studies did not indicate any acute abnormality CT scan did not indicate any abnormality Right arm pain, controlled Continue Neurontin for right arm neuropathic pain Dysuria, urinary frequency, improved BNP was performed, sodium level was normal. No signs of central DI Urinalysis was performed which did not indicate any signs of infection Belladonna rectal suppository Hypertension, stable Norvasc 10 mg daily Vasotec, clonidine as needed Hypokalemia, stable Patient is on potassium replacement Monitor BMP as needed Alcohol and cocaine abuse dependence patient previously counseled. Status post thiamine Tobacco abuse Counseled on cessation Chronic hepatitis C, chronic Patient with chronic transaminitis continue to follow monthly. liver ultrasound showed fatty infiltration Anxiety. Controlled Seroquel low-dose initiated on 05/27. Bowel regimen Justyna-Colace as needed DVT prophylaxis Sequential compression devices. Discharge Planning Patient has no funding for rehabilitation. Patient was denied SSI. customer engagement manager is following up with [facility] regarding status of applications. Occupational therapy recommends shower bench, 3-1 bedside commode for discharge. PT recommends right AFO. 08/16, case management spoke with patient's mother who states that she'll assist in discharge planning. Awaiting decision from the [facility] Regan Newell MD Sep 07, 2016 19:14
[2016-09-07 20:00] VITALS: BP 129/78; PULSE 80; RESP 20; TEMP 98.9; O2SAT 96
[2016-09-07] MEDS: QUEtiapine FUMARATE 25 MG TAB PO SCH (20:22)
[2016-09-07] MEDS: BELLADONNA ALKALOIDS/OPIUM 60 MG SUPP RECTAL SCH (20:22)
[2016-09-08] MEDS: POTASSIUM CHLORIDE 10 MEQ CONTROLLED RELEASE TAB PO SCH (09:38)
[2016-09-08] MEDS: GABAPENTIN 100 MG CAP PO SCH ×3 (09:38→17:31)
[2016-09-08] MEDS: FAMOTIDINE 20 MG TAB PO SCH ×2 (09:38→20:29)
[2016-09-08 10:09] VITALS: BP 129/84; PULSE 85; RESP 20; TEMP 97.6; O2SAT 92
--- NOTE | 2016-09-08 10:22 | HHI.PR ---
Subjective Remarks Patient states her right leg is improving. No acute complaints. Objective Vitals Vital Signs Date Time Temp Pulse Resp B/P Pulse Ox O2 Delivery O2 Flow Rate FiO2 09/08/16 10:09 97.6 85 20 129/84 92 09/07/16 20:00 98.9 80 20 129/78 96 09/07/16 10:46 97.6 78 20 137/92 96 I/O 09/07/16 09/07/16 09/07/16 09/08/16 09/08/16 09/08/16 07:00 15:00 23:00 07:00 15:00 23:00 Intake Total 800 ml 100 ml Output Total 250 ml Balance 550 ml 100 ml Intake Oral 800 ml 100 ml Output Urine Total 250 ml # Voids 3 2 2 # Bowel Movements 1 Objective Remarks GENERAL: Thin, chronically ill appearing patient in no apparent distress. SKIN: Warm and dry. HEAD: Normocephalic. CARDIOVASCULAR: Regular rate and rhythm. RESPIRATORY: No accessory muscle use. Limited anterior lung exam. CTAB. GASTROINTESTINAL: Abdomen soft, nontender, nondistended. NEUROLOGICAL: Awake and alert. Immobile R arm. PSYCHIATRIC: Insight and judgment normal. 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 Venegas has evaluated the patient. The bleed has been stable on repeat head CT. No surgery needed. Speech therapy has been following the patient continue on soft diet with thin liquids Occupational therapy indicates OT at rehabilitation. Patient will need to continue occupational therapy until discharge Physical therapy indicating PT at rehabilitation. We'll need to continue physical therapy, continue right AFO, Norflex for muscle spasms Abdominal pain, resolved Leukocytosis resolved CT scan did not indicate any abnormality SOB, resolved. Chest x-ray without acute abnormality. Right arm pain, controlled Continue Neurontin for right arm neuropathic pain Dysuria, urinary frequency, improved BNP was performed, sodium level was normal. No signs of central DI Urinalysis was performed which did not indicate any signs of infection Continue Belladonna rectal suppository Hypertension, stable Norvasc 10 mg daily Vasotec, clonidine as needed Hypokalemia, stable Patient is on potassium replacement Monitor BMP as needed Alcohol and cocaine abuse dependence patient previously counseled. Status post thiamine Tobacco abuse Counseled on cessation Chronic hepatitis C, chronic Patient with chronic transaminitis continue to follow monthly. liver ultrasound showed fatty infiltration Anxiety. Controlled Seroquel low-dose initiated on 05/27. Bowel regimen Justyna-Colace as needed DVT prophylaxis Sequential compression devices. Discharge Planning Needs Medicaid for placement. Occupational therapy recommends shower bench, 3-1 bedside commode for discharge. PT recommends right AILYN. Elisabeth Church Sep 08, 2016 10:22 Anxiety: controlled Seroquel low-dose initiated on 05/27. GI prophylaxis: Justyna-colace as needed. Patient told to ask for prn dyspepsia medication, Maalox and TUMS. DVT prophylaxis Sequential compression devices. Discharge Planning Awaiting decision from the [facility] if they will accept patient. Occupational therapy recommends shower bench, 3-1 bedside commode for discharge. PT recommends right JONATHANO. Elisabeth Church Sep 08, 2016 10:22
[2016-09-08 20:00] VITALS: BP 128/90; PULSE 84; RESP 18; TEMP 97.8; O2SAT 95
[2016-09-08] MEDS: BELLADONNA ALKALOIDS/OPIUM 60 MG SUPP RECTAL SCH (20:29)
[2016-09-08] MEDS: QUEtiapine FUMARATE 25 MG TAB PO SCH (20:29)
[2016-09-09 08:00] VITALS: BP 130/78; PULSE 80; RESP 18; TEMP 98.4; O2SAT 96
[2016-09-09] MEDS: FAMOTIDINE 20 MG TAB PO SCH ×2 (08:58→21:50)
[2016-09-09] MEDS: POTASSIUM CHLORIDE 10 MEQ CONTROLLED RELEASE TAB PO SCH (08:58)
[2016-09-09] MEDS: GABAPENTIN 100 MG CAP PO SCH ×3 (08:58→17:42)
--- NOTE | 2016-09-09 10:22 | HHI.PR ---
Subjective Remarks Patient complains about her leg, which is "waking up" so she cannot get comfortable. No other acute complaints. Objective Vitals Vital Signs Date Time Temp Pulse Resp B/P Pulse Ox O2 Delivery O2 Flow Rate FiO2 09/09/16 08:00 98.4 80 18 130/78 96 09/08/16 20:00 97.8 84 18 128/90 95 I/O 09/08/16 09/08/16 09/08/16 09/09/16 09/09/16 09/09/16 06:59 14:59 22:59 06:59 14:59 22:59 Intake Total 100 ml 0 ml 240 ml 0 ml Output Total 1200 ml Balance 100 ml 0 ml -960 ml 0 ml Intake Oral 100 ml 240 ml 0 ml IV Total 0 ml Output Urine Total 1200 ml # Voids 2 5 # Bowel Movements 0 Objective Remarks GENERAL: Thin, chronically ill appearing patient in no apparent distress. SKIN: Warm and dry. HEAD: Normocephalic. CARDIOVASCULAR: Regular rate and rhythm. RESPIRATORY: No accessory muscle use. Limited anterior lung exam. CTAB. GASTROINTESTINAL: Abdomen soft, nontender, equivocally distended. NEUROLOGICAL: Awake and alert. PSYCHIATRIC: Insight and judgment normal. 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 Venegas has evaluated the patient. The bleed has been stable on repeat head CT. No surgery needed. Speech therapy has been following the patient continue on soft diet with thin liquids Occupational therapy indicates OT at rehabilitation. Patient will need to continue occupational therapy until discharge Physical therapy indicating PT at rehabilitation. We'll need to continue physical therapy, continue right AFO, Norflex for muscle spasms Abdominal pain, resolved Leukocytosis resolved CT scan did not indicate any abnormality SOB, resolved. Chest x-ray without acute abnormality. Right arm pain, controlled Continue Neurontin for right arm neuropathic pain Dysuria, urinary frequency, improved BNP was performed, sodium level was normal. No signs of central DI Urinalysis was performed which did not indicate any signs of infection Continue Belladonna rectal suppository Hypertension, stable Norvasc 10 mg daily Vasotec, clonidine as needed Hypokalemia, stable Patient is on potassium replacement Monitor BMP as needed Alcohol and cocaine abuse dependence patient previously counseled. Status post thiamine Tobacco abuse Counseled on cessation Chronic hepatitis C, chronic Patient with chronic transaminitis continue to follow monthly. liver ultrasound showed fatty infiltration Anxiety. Controlled Seroquel low-dose initiated on 05/27. Bowel regimen Justyna-Colace as needed DVT prophylaxis Sequential compression devices. Discharge Planning Needs Medicaid for placement. Occupational therapy recommends shower bench, 3-1 bedside commode for discharge. PT recommends right AFO. Elisabeth Church Sep 09, 2016 10:22
[2016-09-09 20:00] VITALS: BP 119/79; PULSE 81; RESP 20; TEMP 98.2; O2SAT 97
[2016-09-09] MEDS: QUEtiapine FUMARATE 25 MG TAB PO SCH (21:51)
[2016-09-09] MEDS: BELLADONNA ALKALOIDS/OPIUM 60 MG SUPP RECTAL SCH (21:51)
[2016-09-10] MEDS: POTASSIUM CHLORIDE 10 MEQ CONTROLLED RELEASE TAB PO SCH (09:51)
[2016-09-10 10:30] VITALS: BP 122/78; PULSE 74; RESP 18; TEMP 96.1; O2SAT 96
[2016-09-10] MEDS: FAMOTIDINE 20 MG TAB PO SCH ×2 (12:25→21:43)
[2016-09-10] MEDS: GABAPENTIN 100 MG CAP PO SCH ×3 (12:25→19:07)
--- NOTE | 2016-09-10 13:54 | HHI.PR ---
Subjective Remarks No acute complaints. No change in clinical status. Patient talking to her mother on the phone when I enter the room. Objective Vitals Vital Signs Date Time Temp Pulse Resp B/P Pulse Ox O2 Delivery O2 Flow Rate FiO2 09/09/16 20:00 98.2 81 20 119/79 97 I/O 09/09/16 09/09/16 09/09/16 09/10/16 09/10/16 09/10/16 06:59 14:59 22:59 06:59 14:59 22:59 Intake Total 240 ml 0 ml 480 ml Output Total 1200 ml 1 ml Balance -960 ml 0 ml 480 ml -1 ml Intake Oral 240 ml 0 ml 480 ml IV Total 0 ml Output Urine Total 1200 ml Stool Total 1 ml # Voids 5 1 5 # Bowel Movements 0 0 Objective Remarks GENERAL: Thin, chronically ill appearing patient in no apparent distress. SKIN: Warm and dry. HEAD: Normocephalic. CARDIOVASCULAR: Regular rate and rhythm. RESPIRATORY: No accessory muscle use. CTAB. GASTROINTESTINAL: Abdomen soft, nontender, non-distended. MUSCULOSKELETAL: Intact R distal radial pulse. NEUROLOGICAL: Awake and alert. Immobile R arm. PSYCHIATRIC: Insight and judgment normal. 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 Venegas has evaluated the patient. The bleed has been stable on repeat head CT. No surgery needed. Speech therapy has been following the patient continue on soft diet with thin liquids Occupational therapy indicates OT at rehabilitation. Patient will need to continue occupational therapy until discharge Physical therapy indicating PT at rehabilitation. We'll need to continue physical therapy, continue right AFO, Norflex for muscle spasms Abdominal pain, resolved Leukocytosis resolved CT scan did not indicate any abnormality SOB, resolved. Chest x-ray without acute abnormality. Right arm pain, controlled Continue Neurontin for right arm neuropathic pain Dysuria, urinary frequency, improved BNP was performed, sodium level was normal. No signs of central DI Urinalysis was performed which did not indicate any signs of infection Continue Belladonna rectal suppository Hypertension, stable Norvasc 10 mg daily Vasotec, clonidine as needed Hypokalemia, stable Patient is on potassium replacement Monitor BMP as needed Alcohol and cocaine abuse dependence patient previously counseled. Status post thiamine Tobacco abuse Counseled on cessation Chronic hepatitis C, chronic Patient with chronic transaminitis continue to follow monthly. liver ultrasound showed fatty infiltration Anxiety. Controlled Seroquel low-dose initiated on 05/27. Bowel regimen Justyna-Colace as needed DVT prophylaxis Sequential compression devices. Discharge Planning Needs Medicaid for placement. Occupational therapy recommends shower bench, 3-1 bedside commode for discharge. PT recommends right AFO. Elisabeth Church Sep 10, 2016 13:54
[2016-09-10 20:00] VITALS: BP 138/72; PULSE 82; RESP 20; TEMP 98.3; O2SAT 98
[2016-09-10] MEDS: BELLADONNA ALKALOIDS/OPIUM 60 MG SUPP RECTAL SCH (21:43)
[2016-09-10] MEDS: QUEtiapine FUMARATE 25 MG TAB PO SCH (21:43)
[2016-09-11 08:00] VITALS: BP 130/85; PULSE 79; RESP 18; TEMP 97.4; O2SAT 94
[2016-09-11] MEDS: GABAPENTIN 100 MG CAP PO SCH ×3 (08:44→17:40)
[2016-09-11] MEDS: FAMOTIDINE 20 MG TAB PO SCH ×2 (08:44→21:10)
[2016-09-11] MEDS: POTASSIUM CHLORIDE 10 MEQ CONTROLLED RELEASE TAB PO SCH (08:44)
--- NOTE | 2016-09-11 13:55 | HHI.PR ---
Subjective Remarks No acute complaints. No change in clinical status. Objective Vitals Vital Signs Date Time Temp Pulse Resp B/P Pulse Ox O2 Delivery O2 Flow Rate FiO2 09/11/16 08:00 97.4 79 18 130/85 94 09/10/16 20:00 98.3 82 20 138/72 98 I/O 09/10/16 09/10/16 09/10/16 09/11/16 09/11/16 09/11/16 07:00 15:00 23:00 07:00 15:00 23:00 Intake Total 480 ml 360 ml Output Total 401 ml Balance 480 ml -41 ml Intake Oral 480 ml 360 ml Output Urine Total 400 ml Stool Total 1 ml # Voids 5 # Bowel Movements 0 1 1 Objective Remarks GENERAL: Thin, chronically ill appearing patient in no apparent distress. SKIN: Warm and dry. HEAD: Normocephalic. CARDIOVASCULAR: Regular rate and rhythm. RESPIRATORY: Limited anterior exam. No accessory muscle use. CTAB. GASTROINTESTINAL: Abdomen soft, nontender, non-distended. NEUROLOGICAL: Awake and alert. PSYCHIATRIC: Insight and judgment normal. 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 Venegas has evaluated the patient. The bleed has been stable on repeat head CT. No surgery needed. Speech therapy has been following the patient continue on soft diet with thin liquids Occupational therapy indicates OT at rehabilitation. Patient will need to continue occupational therapy until discharge Physical therapy indicating PT at rehabilitation. We'll need to continue physical therapy, continue right AFO, Norflex for muscle spasms Abdominal pain, resolved Leukocytosis resolved CT scan did not indicate any abnormality SOB, resolved. Chest x-ray without acute abnormality. Right arm pain, controlled Continue Neurontin for right arm neuropathic pain Dysuria, urinary frequency, improved BNP was performed, sodium level was normal. No signs of central DI Urinalysis was performed which did not indicate any signs of infection Continue Belladonna rectal suppository Hypertension, stable Norvasc 10 mg daily Vasotec, clonidine as needed Hypokalemia, stable Patient is on potassium replacement Monitor BMP as needed Alcohol and cocaine abuse dependence patient previously counseled. Status post thiamine Tobacco abuse Counseled on cessation Chronic hepatitis C, chronic Patient with chronic transaminitis continue to follow monthly. liver ultrasound showed fatty infiltration Anxiety. Controlled Seroquel low-dose initiated on 05/27. Bowel regimen Justyna-Colace as needed DVT prophylaxis Sequential compression devices. Discharge Planning Needs Medicaid for placement. Occupational therapy recommends shower bench, 3-1 bedside commode for discharge. PT recommends right AFO. Elisabeth Church Sep 11, 2016 13:55
[2016-09-11 20:00] VITALS: BP 148/84; PULSE 89; RESP 18; TEMP 96.8; O2SAT 95
[2016-09-11] MEDS: BELLADONNA ALKALOIDS/OPIUM 60 MG SUPP RECTAL SCH (21:10)
[2016-09-11] MEDS: ORPHENADRINE CITRATE 100 MG SUSTAINED RELEASE TAB PO PRN (21:10)
[2016-09-11] MEDS: QUEtiapine FUMARATE 25 MG TAB PO SCH (21:10)
[2016-09-11] MEDS: ACETAMINOPHEN 325 MG TAB PO PRN (21:11)
[2016-09-12 08:55] VITALS: BP 131/83; PULSE 75; RESP 20; TEMP 96; O2SAT 95
--- NOTE | 2016-09-12 09:55 | HHI.PR ---
Subjective Remarks No acute complaints. No change in clinical status. Objective Vitals Vital Signs Date Time Temp Pulse Resp B/P Pulse Ox O2 Delivery O2 Flow Rate FiO2 09/12/16 08:55 96.0 75 20 131/83 95 09/11/16 20:00 96.8 89 18 148/84 95 I/O 09/11/16 09/11/16 09/11/16 09/12/16 09/12/16 09/12/16 07:00 15:00 23:00 07:00 15:00 23:00 Intake Total 0 ml 700 ml 350 ml Balance 0 ml 700 ml 350 ml Intake Oral 700 ml 350 ml IV Total 0 ml # Voids 7 3 # Bowel Movements 0 Objective Remarks GENERAL: Thin, chronically ill appearing patient in no apparent distress. SKIN: Warm and dry. HEAD: Normocephalic. CARDIOVASCULAR: Regular rate and rhythm. RESPIRATORY: Limited anterior exam. No accessory muscle use. GASTROINTESTINAL: Abdomen soft, nontender, non-distended. NEUROLOGICAL: Awake and alert. immobile R arm. PSYCHIATRIC: Insight and judgment normal. 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 Venegas has evaluated the patient. The bleed has been stable on repeat head CT. No surgery needed. Speech therapy has been following the patient continue on soft diet with thin liquids Occupational therapy indicates OT at rehabilitation. Patient will need to continue occupational therapy until discharge Physical therapy indicating PT at rehabilitation. We'll need to continue physical therapy, continue right AFO, Norflex for muscle spasms Abdominal pain, resolved Leukocytosis resolved CT scan did not indicate any abnormality SOB, resolved. Chest x-ray without acute abnormality. Right arm pain, controlled Continue Neurontin for right arm neuropathic pain Dysuria, urinary frequency, improved BNP was performed, sodium level was normal. No signs of central DI Urinalysis was performed which did not indicate any signs of infection Continue Belladonna rectal suppository Hypertension, stable Norvasc 10 mg daily Vasotec, clonidine as needed Hypokalemia, stable Patient is on potassium replacement Monitor BMP as needed Alcohol and cocaine abuse dependence patient previously counseled. Status post thiamine Tobacco abuse Counseled on cessation Chronic hepatitis C, chronic Patient with chronic transaminitis continue to follow monthly. liver ultrasound showed fatty infiltration Anxiety. Controlled Seroquel low-dose initiated on 05/27. Bowel regimen Justyna-Colace as needed DVT prophylaxis Sequential compression devices. Discharge Planning Needs Medicaid for placement. Occupational therapy recommends shower bench, 3-1 bedside commode for discharge. PT recommends right AFO. Elisabeth Church Sep 12, 2016 09:55
[2016-09-12] MEDS: POTASSIUM CHLORIDE 10 MEQ CONTROLLED RELEASE TAB PO SCH (10:15)
[2016-09-12] MEDS: FAMOTIDINE 20 MG TAB PO SCH ×2 (10:16→20:41)
[2016-09-12] MEDS: GABAPENTIN 100 MG CAP PO SCH ×3 (10:16→18:32)
[2016-09-12 20:00] VITALS: BP 137/87; PULSE 84; RESP 19; TEMP 97.1; O2SAT 97
[2016-09-12] MEDS: BELLADONNA ALKALOIDS/OPIUM 60 MG SUPP RECTAL SCH (20:41)
[2016-09-12] MEDS: ORPHENADRINE CITRATE 100 MG SUSTAINED RELEASE TAB PO PRN (20:41)
[2016-09-12] MEDS: ACETAMINOPHEN 325 MG TAB PO PRN (20:41)
[2016-09-12] MEDS: QUEtiapine FUMARATE 25 MG TAB PO SCH (20:41)
[2016-09-13] MEDS: GABAPENTIN 100 MG CAP PO SCH ×3 (07:58→14:12)
[2016-09-13] MEDS: POTASSIUM CHLORIDE 10 MEQ CONTROLLED RELEASE TAB PO SCH (07:58)
[2016-09-13] MEDS: FAMOTIDINE 20 MG TAB PO SCH ×2 (07:58→20:50)
[2016-09-13 08:00] VITALS: BP 122/80; PULSE 80; RESP 18; TEMP 98.1; O2SAT 97
--- NOTE | 2016-09-13 10:07 | HHI.PR ---
Subjective Remarks No acute complaints. No change in clinical status. Objective Vitals Vital Signs Date Time Temp Pulse Resp B/P Pulse Ox O2 Delivery O2 Flow Rate FiO2 09/12/16 20:00 97.1 84 19 137/87 97 I/O 09/12/16 09/12/16 09/12/16 09/13/16 09/13/16 09/13/16 07:00 15:00 23:00 07:00 15:00 23:00 Intake Total 350 ml 870 ml 860 ml 300 ml Balance 350 ml 870 ml 860 ml 300 ml Intake Oral 350 ml 870 ml 860 ml 300 ml # Voids 3 3 7 3 # Bowel Movements 1 0 0 Objective Remarks GENERAL: Thin, chronically ill appearing patient in no apparent distress. SKIN: Warm and dry. HEAD: Normocephalic. CARDIOVASCULAR: Regular rate and rhythm. RESPIRATORY: Limited anterior exam. No accessory muscle use, CTAB. GASTROINTESTINAL: Abdomen soft, nontender, non-distended. NEUROLOGICAL: Awake and alert. immobile R arm. PSYCHIATRIC: Insight and judgment normal. 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 Venegas has evaluated the patient. The bleed has been stable on repeat head CT. No surgery needed. Speech therapy has been following the patient continue on soft diet with thin liquids Occupational therapy indicates OT at rehabilitation. Patient will need to continue occupational therapy until discharge Physical therapy indicating PT at rehabilitation. We'll need to continue physical therapy, continue right AFO. Norflex for muscle spasms Abdominal pain, resolved Leukocytosis resolved CT scan did not indicate any abnormality SOB, resolved. Chest x-ray without acute abnormality. Right arm pain, controlled Continue Neurontin for right arm neuropathic pain Dysuria, urinary frequency, improved BNP was performed, sodium level was normal. No signs of central DI Urinalysis was performed which did not indicate any signs of infection Continue Belladonna rectal suppository Hypertension, stable Norvasc 10 mg daily Vasotec, clonidine as needed Hypokalemia, stable Patient is on potassium replacement Monitor BMP as needed Alcohol and cocaine abuse dependence patient previously counseled. Status post thiamine Tobacco abuse Counseled on cessation Chronic hepatitis C, chronic Patient with chronic transaminitis continue to follow monthly. liver ultrasound showed fatty infiltration Anxiety. Controlled Seroquel low-dose initiated on 05/27. Bowel regimen Justyna-Colace as needed DVT prophylaxis Sequential compression devices. Discharge Planning Needs Medicaid for placement. Occupational therapy recommends shower bench, 3-1 bedside commode for discharge. PT recommends right AFO. Elisabeth Church Sep 13, 2016 10:07
[2016-09-13 20:00] VITALS: BP 128/86; RESP 18; TEMP 97.8; O2SAT 97
[2016-09-13] MEDS: ACETAMINOPHEN 325 MG TAB PO PRN (20:49)
[2016-09-13] MEDS: BELLADONNA ALKALOIDS/OPIUM 60 MG SUPP RECTAL SCH (20:50)
[2016-09-13] MEDS: ORPHENADRINE CITRATE 100 MG SUSTAINED RELEASE TAB PO PRN (20:50)
[2016-09-13] MEDS: QUEtiapine FUMARATE 25 MG TAB PO SCH (20:50)
[2016-09-14] MEDS: GABAPENTIN 100 MG CAP PO SCH ×3 (08:40→17:13)
[2016-09-14] MEDS: POTASSIUM CHLORIDE 10 MEQ CONTROLLED RELEASE TAB PO SCH (08:40)
[2016-09-14] MEDS: FAMOTIDINE 20 MG TAB PO SCH ×2 (08:40→21:08)
--- NOTE | 2016-09-14 11:34 | HHI.PR ---
Subjective Remarks Patient seen and examined today. Patient has any new complaints. No change in clinical status. As indicated by physical therapy the patient is resistant to doing physical therapy. I counseled patient extensively on needing to get out of bed at least 3 times daily and that she needed to work with physical therapy or she would not get any better and she would remain a permanent resident at [facility] Objective Vitals Vital Signs Date Time Temp Pulse Resp B/P Pulse Ox O2 Delivery O2 Flow Rate FiO2 09/13/16 20:00 97.8 18 128/86 97 I/O 09/13/16 09/13/16 09/13/16 09/14/16 09/14/16 09/14/16 07:00 15:00 23:00 07:00 15:00 23:00 Intake Total 300 ml 560 ml 450 ml Output Total 201 ml Balance 300 ml 359 ml 450 ml Intake Oral 300 ml 560 ml 450 ml Output Urine Total 200 ml Stool Total 1 ml # Voids 3 8 3 # Bowel Movements 0 0 Objective Remarks GENERAL: Well-developed, well-nourished, in no acute distress. alert and orientated HEENT: Head is normocephalic without any lesions or masses noted right facial droop. NECK: Supple without any masses. Trachea midline no deviation. CARDIAC: Regular rhythm, regular rate. S1/S2 are heard. No murmurs gallops or rubs. LUNGS: Clear to auscultation bilaterally. No wheeze, rhonchi or rales. No use of accessory muscles on inspiration or expiration. ABDOMEN: Soft, nontender. Nondistended. Bowel sounds heard in all 4 quadrants. No organomegaly or masses. Negative rebound, negative guarding EXTREMITIES: No edema, pulses are equal bilaterally. No cyanosis or clubbing NEUROLOGY: Mood and affect appear appropriate. Dense right hemiparesis which appears to be improving in the lower extremity. Patient is able to move her right hand second third and fourth digit. She is able to lift her right leg off the bed, right lower extremity now with 1/5 strength Procedures None Urinary Catheter: No Vascular Central Line Catheter: No A/P Assessment and Plan Left basal ganglia bleed with 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 Venegas has evaluated the patient. The bleed has been stable on repeat head CT. No surgery needed. Speech therapy has been following the patient continue on soft diet with thin liquids Occupational therapy indicates OT at rehabilitation. Patient will need to continue occupational therapy until discharge Physical therapy indicating PT at rehabilitation. We'll need to continue physical therapy, continue right AFO, Norflex for muscle spasms Abdominal pain, resolved Laboratory studies did not indicate any acute abnormality CT scan did not indicate any abnormality Right arm pain, controlled Continue Neurontin for right arm neuropathic pain Dysuria, urinary frequency, improved BNP was performed, sodium level was normal. No signs of central DI Urinalysis was performed which did not indicate any signs of infection Belladonna rectal suppository Hypertension, stable Norvasc 10 mg daily Vasotec, clonidine as needed Hypokalemia, stable Patient is on potassium replacement Monitor BMP as needed Alcohol and cocaine abuse dependence patient previously counseled. Status post thiamine Tobacco abuse Counseled on cessation Chronic hepatitis C, chronic Patient with chronic transaminitis continue to follow monthly. liver ultrasound showed fatty infiltration Anxiety. Controlled Seroquel low-dose initiated on 05/27. Bowel regimen Justyna-Colace as needed DVT prophylaxis Sequential compression devices. Discharge Planning Patient has no funding for rehabilitation. Patient was denied SSI. manager area is following up with [facility] regarding status of applications. Occupational therapy recommends shower bench, 3-1 bedside commode for discharge. PT recommends right AFO. 08/16, case management spoke with patient's mother who states that she'll assist in discharge planning. Awaiting decision from the [facility] in [place] 09/07/16 1207 PATIENTN NEEDING MEDICAID IN PLACE BEFORE WE CAN CONTINUE TO SEEK PLACEMENT, THOUGHT IT WAS AVILABLE BUT WAS DENIED [facility] RESUBMITTING PROCESS. GISELA ORTIZ LPN/Jaycob Wallace Sep 14, 2016 11:34
[2016-09-14 11:35] VITALS: BP 123/89; PULSE 87; RESP 20; TEMP 97.6; O2SAT 98
[2016-09-14 20:00] VITALS: BP 114/68; PULSE 83; RESP 20; TEMP 97.7; O2SAT 97
[2016-09-14] MEDS: QUEtiapine FUMARATE 25 MG TAB PO SCH (21:07)
[2016-09-14] MEDS: ACETAMINOPHEN 325 MG TAB PO PRN (21:07)
[2016-09-14] MEDS: BELLADONNA ALKALOIDS/OPIUM 60 MG SUPP RECTAL SCH (21:08)
[2016-09-14] MEDS: ORPHENADRINE CITRATE 100 MG SUSTAINED RELEASE TAB PO PRN (21:08)
[2016-09-15 08:00] VITALS: BP 126/80; PULSE 80; RESP 18; TEMP 97.8; O2SAT 95
--- NOTE | 2016-09-15 08:51 | HHI.PR ---
Subjective Remarks Patient seen and examined today. Patient denies any new complaints. No change in clinical status. Objective Vitals Vital Signs Date Time Temp Pulse Resp B/P Pulse Ox O2 Delivery O2 Flow Rate FiO2 09/14/16 20:00 97.7 83 20 114/68 97 09/14/16 11:35 97.6 87 20 123/89 98 I/O 09/14/16 09/14/16 09/14/16 09/15/16 09/15/16 09/15/16 06:59 14:59 22:59 06:59 14:59 22:59 Intake Total 450 ml 900 ml 480 ml 500 ml Balance 450 ml 900 ml 480 ml 500 ml Intake Oral 450 ml 900 ml 480 ml 500 ml # Voids 3 4 3 5 # Bowel Movements 0 1 Objective Remarks GENERAL: Well-developed, well-nourished, in no acute distress. alert and orientated HEENT: Head is normocephalic without any lesions or masses noted right facial droop. NECK: Supple without any masses. Trachea midline no deviation. CARDIAC: Regular rhythm, regular rate. S1/S2 are heard. No murmurs gallops or rubs. LUNGS: Clear to auscultation bilaterally. No wheeze, rhonchi or rales. No use of accessory muscles on inspiration or expiration. ABDOMEN: Soft, nontender. Nondistended. Bowel sounds heard in all 4 quadrants. No organomegaly or masses. Negative rebound, negative guarding EXTREMITIES: No edema, pulses are equal bilaterally. No cyanosis or clubbing NEUROLOGY: Mood and affect appear appropriate. Dense right hemiparesis which appears to be improving in the lower extremity. Patient is able to move her right hand second third and fourth digit. She is able to lift her right leg off the bed, right lower extremity now with 1/5 strength Procedures None Urinary Catheter: No Vascular Central Line Catheter: No A/P Assessment and Plan Left basal ganglia bleed with 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 Venegas has evaluated the patient. The bleed has been stable on repeat head CT. No surgery needed. Speech therapy has been following the patient continue on soft diet with thin liquids Occupational therapy indicates OT at rehabilitation. Patient will need to continue occupational therapy until discharge Physical therapy indicating PT at rehabilitation. We'll need to continue physical therapy, continue right AFO, Norflex for muscle spasms Abdominal pain, resolved Laboratory studies did not indicate any acute abnormality CT scan did not indicate any abnormality Right arm pain, controlled Continue Neurontin for right arm neuropathic pain Dysuria, urinary frequency, improved BNP was performed, sodium level was normal. No signs of central DI Urinalysis was performed which did not indicate any signs of infection Belladonna rectal suppository Hypertension, stable Norvasc 10 mg daily Vasotec, clonidine as needed Hypokalemia, stable Patient is on potassium replacement Monitor BMP as needed Alcohol and cocaine abuse dependence patient previously counseled. Status post thiamine Tobacco abuse Counseled on cessation Chronic hepatitis C, chronic Patient with chronic transaminitis continue to follow monthly. liver ultrasound showed fatty infiltration Anxiety. Controlled Seroquel low-dose initiated on 05/27. Bowel regimen Justyna-Colace as needed DVT prophylaxis Sequential compression devices. Discharge Planning Patient has no funding for rehabilitation. Patient was denied SSI. apartment community assistant manager is following up with [employer] regarding status of applications. Occupational therapy recommends shower bench, 3-1 bedside commode for discharge. PT recommends right AFO. 08/16, case management spoke with patient's mother who states that she'll assist in discharge planning. Awaiting decision from the [facility] in [place] 09/15/16 0707 PATIENT WITH PLACEMENT NEED AN INCOME BASE BUT NEEDING MEDICIAID FOR THIS WELL. THIS IS PENDING ONCE WE HAVE MEDICAID IN PLACE WE CAN SEEK OUT PLACEMENT, [facility] WORKING ON THIS WITH FAMILY GISELA ORTIZ BENNETT/Jaycob Wallace Sep 15, 2016 08:50
[2016-09-15] MEDS: FAMOTIDINE 20 MG TAB PO SCH ×2 (09:45→20:45)
[2016-09-15] MEDS: POTASSIUM CHLORIDE 10 MEQ CONTROLLED RELEASE TAB PO SCH (09:45)
[2016-09-15] MEDS: GABAPENTIN 100 MG CAP PO SCH ×3 (09:45→18:00)
[2016-09-15 20:00] VITALS: BP 133/87; PULSE 84; RESP 20; TEMP 97.2; O2SAT 98
[2016-09-15] MEDS: ACETAMINOPHEN 325 MG TAB PO PRN (20:46)
[2016-09-15] MEDS: ORPHENADRINE CITRATE 100 MG SUSTAINED RELEASE TAB PO PRN (20:46)
[2016-09-15] MEDS: BELLADONNA ALKALOIDS/OPIUM 60 MG SUPP RECTAL SCH (20:47)
[2016-09-15] MEDS: QUEtiapine FUMARATE 25 MG TAB PO SCH (20:47)
[2016-09-16] MEDS: POTASSIUM CHLORIDE 10 MEQ CONTROLLED RELEASE TAB PO SCH (07:56)
[2016-09-16] MEDS: GABAPENTIN 100 MG CAP PO SCH ×3 (07:57→17:41)
[2016-09-16 08:35] VITALS: BP 142/95; PULSE 77; RESP 16; TEMP 98.1; O2SAT 96
--- NOTE | 2016-09-16 09:02 | HHI.PR ---
Subjective Remarks Patient seen and examined today. Patient denies any new complaints. No change in clinical status. Awaiting case management for discharge planning Objective Vitals Vital Signs Date Time Temp Pulse Resp B/P Pulse Ox O2 Delivery O2 Flow Rate FiO2 09/16/16 08:35 98.1 77 16 142/95 96 09/15/16 20:00 97.2 84 20 133/87 98 I/O 09/15/16 09/15/16 09/15/16 09/16/16 09/16/16 09/16/16 06:59 14:59 22:59 06:59 14:59 22:59 Intake Total 500 ml 800 ml 480 ml 480 ml Balance 500 ml 800 ml 480 ml 480 ml Intake Oral 500 ml 800 ml 480 ml 480 ml # Voids 5 3 2 # Bowel Movements 1 0 Objective Remarks GENERAL: Well-developed, well-nourished, in no acute distress. alert and orientated HEENT: Head is normocephalic without any lesions or masses noted right facial droop. NECK: Supple without any masses. Trachea midline no deviation. CARDIAC: Regular rhythm, regular rate. S1/S2 are heard. No murmurs gallops or rubs. LUNGS: Clear to auscultation bilaterally. No wheeze, rhonchi or rales. No use of accessory muscles on inspiration or expiration. ABDOMEN: Soft, nontender. Nondistended. Bowel sounds heard in all 4 quadrants. No organomegaly or masses. Negative rebound, negative guarding EXTREMITIES: No edema, pulses are equal bilaterally. No cyanosis or clubbing NEUROLOGY: Mood and affect appear appropriate. Dense right hemiparesis which appears to be improving in the lower extremity. Patient is able to move her right hand second third and fourth digit. She is able to lift her right leg off the bed, right lower extremity now with 1/5 strength Procedures None Urinary Catheter: No Vascular Central Line Catheter: No A/P Assessment and Plan Left basal ganglia bleed with 4mm MLS with dense Right hemiparesis, improving slowly secondary to cocaine and uncontrolled hypertension Neurosurgery,Dr. Venegas has evaluated the patient. The bleed has been stable on repeat head CT. No surgery needed. Speech therapy has been following the patient continue on soft diet with thin liquids Occupational therapy indicates OT at rehabilitation. Patient will need to continue occupational therapy until discharge Physical therapy indicating PT at rehabilitation. We'll need to continue physical therapy, continue right AFO, Norflex for muscle spasms Abdominal pain, resolved Laboratory studies did not indicate any acute abnormality CT scan did not indicate any abnormality Right arm pain, controlled Continue Neurontin for right arm neuropathic pain Dysuria, urinary frequency, improved BNP was performed, sodium level was normal. No signs of central DI Urinalysis was performed which did not indicate any signs of infection Belladonna rectal suppository Hypertension, stable Norvasc 10 mg daily Vasotec, clonidine as needed Hypokalemia, stable Patient is on potassium replacement Monitor BMP as needed Alcohol and cocaine abuse dependence patient previously counseled. Status post thiamine Tobacco abuse Counseled on cessation Chronic hepatitis C, chronic Patient with chronic transaminitis continue to follow monthly. liver ultrasound showed fatty infiltration Anxiety. Controlled Seroquel low-dose initiated on 05/27. Bowel regimen Justyna-Colace as needed DVT prophylaxis Sequential compression devices. Discharge Planning Patient has no funding for rehabilitation. Patient was denied SSI. physician practice manager is following up with [employer] regarding status of applications. Occupational therapy recommends shower bench, 3-1 bedside commode for discharge. PT recommends right AFO. 08/16, case management spoke with patient's mother who states that she'll assist in discharge planning. Awaiting decision from the [facility] in [place] 09/15/16 0707 PATIENT WITH PLACEMENT NEED AN INCOME BASE BUT NEEDING MEDICIAID FOR THIS WELL. THIS IS PENDING ONCE WE HAVE MEDICAID IN PLACE WE CAN SEEK OUT PLACEMENT, [facility] WORKING ON THIS WITH FAMILY GISELA ORTIZ BENNETT/Jaycob Wallace Sep 16, 2016 09:02
[2016-09-16] MEDS: FAMOTIDINE 20 MG TAB PO SCH ×2 (11:37→20:21)
[2016-09-16 20:00] VITALS: BP 136/91; PULSE 89; RESP 18; TEMP 98.9; O2SAT 94
[2016-09-16] MEDS: BELLADONNA ALKALOIDS/OPIUM 60 MG SUPP RECTAL SCH (20:20)
[2016-09-16] MEDS: QUEtiapine FUMARATE 25 MG TAB PO SCH (20:22)
[2016-09-16] MEDS: ACETAMINOPHEN 325 MG TAB PO PRN (20:28)
[2016-09-17] MEDS: FAMOTIDINE 20 MG TAB PO SCH ×2 (07:53→22:33)
[2016-09-17] MEDS: GABAPENTIN 100 MG CAP PO SCH ×3 (07:53→16:21)
[2016-09-17] MEDS: POTASSIUM CHLORIDE 10 MEQ CONTROLLED RELEASE TAB PO SCH (07:53)
[2016-09-17] MEDS: ACETAMINOPHEN 325 MG TAB PO PRN (07:53)
[2016-09-17 08:00] VITALS: BP 130/70; PULSE 77; RESP 18; TEMP 98.3; O2SAT 95
--- NOTE | 2016-09-17 11:55 | HHI.PR ---
Subjective Remarks Patient seen and examined today. Patient denies any new complaints. No change in clinical status. Objective Vitals Vital Signs Date Time Temp Pulse Resp B/P Pulse Ox O2 Delivery O2 Flow Rate FiO2 09/17/16 08:53 20 09/16/16 20:00 98.9 89 18 136/91 94 I/O 09/16/16 09/16/16 09/16/16 09/17/16 09/17/16 09/17/16 06:59 14:59 22:59 06:59 14:59 22:59 Intake Total 480 ml 1000 ml Output Total 425 ml 225 ml Balance 480 ml 575 ml -225 ml Intake Oral 480 ml 1000 ml Output Urine Total 425 ml 225 ml # Voids 2 5 1 # Bowel Movements 0 1 0 Objective Remarks GENERAL: Well-developed, well-nourished, in no acute distress. alert and orientated HEENT: Head is normocephalic without any lesions or masses noted right facial droop. NECK: Supple without any masses. Trachea midline no deviation. CARDIAC: Regular rhythm, regular rate. S1/S2 are heard. No murmurs gallops or rubs. LUNGS: Clear to auscultation bilaterally. No wheeze, rhonchi or rales. No use of accessory muscles on inspiration or expiration. ABDOMEN: Soft, nontender. Nondistended. Bowel sounds heard in all 4 quadrants. No organomegaly or masses. Negative rebound, negative guarding EXTREMITIES: No edema, pulses are equal bilaterally. No cyanosis or clubbing NEUROLOGY: Mood and affect appear appropriate. Dense right hemiparesis which appears to be improving in the lower extremity. Patient is able to move her right hand second third and fourth digit. 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 Venegas has evaluated the patient. The bleed has been stable on repeat head CT. No surgery needed. Speech therapy has been following the patient continue on soft diet with thin liquids Occupational therapy indicates OT at rehabilitation. Patient will need to continue occupational therapy until discharge Physical therapy indicating PT at rehabilitation. We'll need to continue physical therapy, continue right AFO, Norflex for muscle spasms Abdominal pain, resolved Laboratory studies did not indicate any acute abnormality CT scan did not indicate any abnormality Right arm pain, controlled Continue Neurontin for right arm neuropathic pain Dysuria, urinary frequency, improved BNP was performed, sodium level was normal. No signs of central DI Urinalysis was performed which did not indicate any signs of infection Belladonna rectal suppository Hypertension, stable Norvasc 10 mg daily Vasotec, clonidine as needed Hypokalemia, stable Patient is on potassium replacement Monitor BMP as needed Alcohol and cocaine abuse dependence patient previously counseled. Status post thiamine Tobacco abuse Counseled on cessation Chronic hepatitis C, chronic Patient with chronic transaminitis continue to follow monthly. liver ultrasound showed fatty infiltration Anxiety. Controlled Seroquel low-dose initiated on 05/27. Bowel regimen Justyna-Colace as needed DVT prophylaxis Sequential compression devices. Discharge Planning Patient has no funding for rehabilitation. Patient was denied SSI. quality systems manager is following up with [employer] regarding status of applications. Occupational therapy recommends shower bench, 3-1 bedside commode for discharge. PT recommends right AFO. 08/16, case management spoke with patient's mother who states that she'll assist in discharge planning. Awaiting decision from the [facility] in [place] 09/15/16 0707 PATIENT WITH PLACEMENT NEED AN INCOME BASE BUT NEEDING MEDICIAID FOR THIS WELL. THIS IS PENDING ONCE WE HAVE MEDICAID IN PLACE WE CAN SEEK OUT PLACEMENT, [facility] WORKING ON THIS WITH FAMILY GISELA DIANA GUAJARDO/Jaycob Wallace Sep 17, 2016 11:55
[2016-09-17 22:00] VITALS: BP 140/85; PULSE 86; RESP 18; TEMP 97.1; O2SAT 95
[2016-09-17] MEDS: QUEtiapine FUMARATE 25 MG TAB PO SCH (22:33)
[2016-09-17] MEDS: BELLADONNA ALKALOIDS/OPIUM 60 MG SUPP RECTAL SCH (22:33)
[2016-09-18 08:00] VITALS: BP 130/81; PULSE 72; RESP 18; TEMP 97.3; O2SAT 96
[2016-09-18] MEDS: FAMOTIDINE 20 MG TAB PO SCH ×2 (08:42→20:59)
[2016-09-18] MEDS: POTASSIUM CHLORIDE 10 MEQ CONTROLLED RELEASE TAB PO SCH (08:42)
[2016-09-18] MEDS: GABAPENTIN 100 MG CAP PO SCH ×3 (08:42→17:24)
--- NOTE | 2016-09-18 09:42 | HHI.PR ---
Subjective Remarks No acute complaints. No change in clinical status. Objective Vitals Vital Signs Date Time Temp Pulse Resp B/P Pulse Ox O2 Delivery O2 Flow Rate FiO2 09/18/16 08:00 97.3 72 18 130/81 96 09/17/16 22:00 97.1 86 18 140/85 95 I/O 09/17/16 09/17/16 09/17/16 09/18/16 09/18/16 09/18/16 06:59 14:59 22:59 06:59 14:59 22:59 Intake Total 625 ml 850 ml 840 ml Output Total 225 ml Balance -225 ml 625 ml 850 ml 840 ml Intake Oral 625 ml 850 ml 840 ml Output Urine Total 225 ml # Voids 1 6 4 4 2 # Bowel Movements 0 0 0 0 Objective Remarks GENERAL: Thin, chronically ill appearing patient in no apparent distress. SKIN: Warm and dry. HEAD: Normocephalic. CARDIOVASCULAR: Regular rate and rhythm. RESPIRATORY: Limited anterior exam. No accessory muscle use, CTAB. GASTROINTESTINAL: Abdomen soft, nontender, non-distended. NEUROLOGICAL: Awake and alert. PSYCHIATRIC: Insight and judgment normal. 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 Venegas has evaluated the patient. The bleed has been stable on repeat head CT. No surgery needed. Speech therapy has been following the patient continue on soft diet with thin liquids Occupational therapy indicates OT at rehabilitation. Patient will need to continue occupational therapy until discharge Physical therapy indicating PT at rehabilitation. We'll need to continue physical therapy, continue right AFO. Norflex for muscle spasms Abdominal pain, resolved Leukocytosis resolved CT scan did not indicate any abnormality SOB, resolved. Chest x-ray without acute abnormality. Right arm pain, controlled Continue Neurontin for right arm neuropathic pain Dysuria, urinary frequency, improved BNP was performed, sodium level was normal. No signs of central DI Urinalysis was performed which did not indicate any signs of infection Continue Belladonna rectal suppository Hypertension, stable Norvasc 10 mg daily Vasotec, clonidine as needed Hypokalemia, stable Patient is on potassium replacement Monitor BMP as needed Alcohol and cocaine abuse dependence patient previously counseled. Status post thiamine Tobacco abuse Counseled on cessation Chronic hepatitis C, chronic Patient with chronic transaminitis continue to follow monthly. liver ultrasound showed fatty infiltration Anxiety. Controlled Seroquel low-dose initiated on 05/27. Bowel regimen Justyna-Colace as needed DVT prophylaxis Sequential compression devices. Discharge Planning Needs Medicaid for placement. Occupational therapy recommends shower bench, 3-1 bedside commode for discharge. PT recommends right AFO. Elisabeth Church Sep 18, 2016 09:42
[2016-09-18 20:00] VITALS: BP 124/90; PULSE 86; RESP 16; TEMP 98.2; O2SAT 97
[2016-09-18] MEDS: QUEtiapine FUMARATE 25 MG TAB PO SCH (20:58)
[2016-09-18] MEDS: BELLADONNA ALKALOIDS/OPIUM 60 MG SUPP RECTAL SCH (20:59)
[2016-09-18] MEDS: ACETAMINOPHEN 325 MG TAB PO PRN (21:02)
[2016-09-19] MEDS: POTASSIUM CHLORIDE 10 MEQ CONTROLLED RELEASE TAB PO SCH (07:48)
[2016-09-19] MEDS: FAMOTIDINE 20 MG TAB PO SCH ×2 (07:48→20:46)
[2016-09-19] MEDS: GABAPENTIN 100 MG CAP PO SCH ×3 (07:48→18:41)
[2016-09-19 08:00] VITALS: BP 123/87; PULSE 75; RESP 16; TEMP 97.3; O2SAT 96
--- NOTE | 2016-09-19 09:51 | HHI.PR ---
Subjective Remarks No acute complaints. No change in clinical status. Objective Vitals Vital Signs Date Time Temp Pulse Resp B/P Pulse Ox O2 Delivery O2 Flow Rate FiO2 09/19/16 08:00 97.3 75 16 123/87 96 09/18/16 20:00 98.2 86 16 124/90 97 I/O 09/18/16 09/18/16 09/18/16 09/19/16 09/19/16 09/19/16 07:00 15:00 23:00 07:00 15:00 23:00 Intake Total 840 ml 240 ml 500 ml Balance 840 ml 240 ml 500 ml Intake Oral 840 ml 240 ml 500 ml # Voids 4 2 2 2 # Bowel Movements 0 1 Objective Remarks GENERAL: Thin, chronically ill appearing patient in no apparent distress. SKIN: Warm and dry. CARDIOVASCULAR: Regular rate and rhythm. RESPIRATORY: Limited anterior exam. No accessory muscle use, CTAB. GASTROINTESTINAL: Abdomen soft, nontender, non-distended. NEUROLOGICAL: Awake and alert. PSYCHIATRIC: Insight and judgment normal. 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 Venegas has evaluated the patient. The bleed has been stable on repeat head CT. No surgery needed. Speech therapy has been following the patient continue on soft diet with thin liquids Occupational therapy indicates OT at rehabilitation. Patient will need to continue occupational therapy until discharge Physical therapy indicating PT at rehabilitation. We'll need to continue physical therapy, continue right AFO. Norflex for muscle spasms Abdominal pain, resolved Leukocytosis resolved CT scan did not indicate any abnormality SOB, resolved. Chest x-ray without acute abnormality. Right arm pain, controlled Continue Neurontin for right arm neuropathic pain Dysuria, urinary frequency, improved BNP was performed, sodium level was normal. No signs of central DI Urinalysis was performed which did not indicate any signs of infection Continue Belladonna rectal suppository Hypertension, stable Norvasc 10 mg daily Vasotec, clonidine as needed Hypokalemia, stable Patient is on potassium replacement Monitor BMP as needed Alcohol and cocaine abuse dependence patient previously counseled. Status post thiamine Tobacco abuse Counseled on cessation Chronic hepatitis C, chronic Patient with chronic transaminitis continue to follow monthly. liver ultrasound showed fatty infiltration Anxiety. Controlled Seroquel low-dose initiated on 05/27. Bowel regimen Justyna-Colace as needed DVT prophylaxis Sequential compression devices. Discharge Planning Needs Medicaid for placement. Occupational therapy recommends shower bench, 3-1 bedside commode for discharge. PT recommends right AFO. Elisabeth Church Sep 19, 2016 09:51
[2016-09-19 20:15] VITALS: BP 106/85; PULSE 80; RESP 18; TEMP 96.9; O2SAT 94
[2016-09-19] MEDS: BELLADONNA ALKALOIDS/OPIUM 60 MG SUPP RECTAL SCH (20:46)
[2016-09-19] MEDS: QUEtiapine FUMARATE 25 MG TAB PO SCH (20:46)
[2016-09-20] MEDS: ACETAMINOPHEN 325 MG TAB PO PRN (08:23)
[2016-09-20] MEDS: GABAPENTIN 100 MG CAP PO SCH ×3 (08:23→17:26)
[2016-09-20] MEDS: FAMOTIDINE 20 MG TAB PO SCH ×2 (08:24→20:21)
[2016-09-20] MEDS: POTASSIUM CHLORIDE 10 MEQ CONTROLLED RELEASE TAB PO SCH (08:24)
[2016-09-20 08:30] VITALS: BP 120/81; PULSE 75; RESP 18; TEMP 96.5; O2SAT 94
--- NOTE | 2016-09-20 09:38 | HHI.PR ---
Subjective Remarks No acute complaints. No change in clinical status. Objective Vitals Vital Signs Date Time Temp Pulse Resp B/P Pulse Ox O2 Delivery O2 Flow Rate FiO2 09/20/16 08:30 96.5 75 18 120/81 94 09/19/16 20:15 96.9 80 18 106/85 94 I/O 09/19/16 09/19/16 09/19/16 09/20/16 09/20/16 09/20/16 06:59 14:59 22:59 06:59 14:59 22:59 Intake Total 450 ml Output Total 900 ml Balance 450 ml -900 ml Intake Oral 450 ml Output Urine Total 900 ml # Voids 2 2 4 # Bowel Movements 0 Objective Remarks GENERAL: Thin, chronically ill appearing patient in no apparent distress. SKIN: Warm and dry. CARDIOVASCULAR: Regular rate and rhythm. RESPIRATORY: Limited anterior exam. No accessory muscle use, CTAB. GASTROINTESTINAL: Abdomen soft, nontender, non-distended. NEUROLOGICAL: Awake and alert. PSYCHIATRIC: Insight and judgment normal. 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 Venegas has evaluated the patient. The bleed has been stable on repeat head CT. No surgery needed. Speech therapy has been following the patient continue on soft diet with thin liquids Occupational therapy indicates OT at rehabilitation. Patient will need to continue occupational therapy until discharge Physical therapy indicating PT at rehabilitation. We'll need to continue physical therapy, continue right AFO. Norflex for muscle spasms Abdominal pain, resolved Leukocytosis resolved CT scan did not indicate any abnormality SOB, resolved. Chest x-ray without acute abnormality. Right arm pain, controlled Continue Neurontin for right arm neuropathic pain Dysuria, urinary frequency, improved BNP was performed, sodium level was normal. No signs of central DI Urinalysis was performed which did not indicate any signs of infection Continue Belladonna rectal suppository Hypertension, stable Norvasc 10 mg daily Vasotec, clonidine as needed Hypokalemia, stable Patient is on potassium replacement Monitor BMP as needed Alcohol and cocaine abuse dependence patient previously counseled. Status post thiamine Tobacco abuse Counseled on cessation Chronic hepatitis C, chronic Patient with chronic transaminitis continue to follow monthly. liver ultrasound showed fatty infiltration Anxiety. Controlled Seroquel low-dose initiated on 05/27. Bowel regimen Justyna-Colace as needed DVT prophylaxis Sequential compression devices. Discharge Planning Needs Medicaid for placement. Occupational therapy recommends shower bench, 3-1 bedside commode for discharge. PT recommends right AFO. Elisabeth Church Sep 20, 2016 09:38
[2016-09-20 20:00] VITALS: BP 126/81; PULSE 90; RESP 20; TEMP 98.1; O2SAT 96
[2016-09-20] MEDS: BELLADONNA ALKALOIDS/OPIUM 60 MG SUPP RECTAL SCH (20:21)
[2016-09-20] MEDS: QUEtiapine FUMARATE 25 MG TAB PO SCH (20:21)
[2016-09-21] MEDS: POTASSIUM CHLORIDE 10 MEQ CONTROLLED RELEASE TAB PO SCH (08:12)
[2016-09-21] MEDS: FAMOTIDINE 20 MG TAB PO SCH ×2 (08:12→22:34)
[2016-09-21] MEDS: GABAPENTIN 100 MG CAP PO SCH ×3 (08:12→17:16)
[2016-09-21 09:52] VITALS: BP 129/83; PULSE 79; RESP 20; TEMP 96.7; O2SAT 93
--- NOTE | 2016-09-21 10:07 | HHI.PR ---
Subjective Remarks No acute complaints. No change in clinical status. Objective Vitals Vital Signs Date Time Temp Pulse Resp B/P Pulse Ox O2 Delivery O2 Flow Rate FiO2 09/21/16 09:52 96.7 79 20 129/83 93 09/20/16 20:00 98.1 90 20 126/81 96 I/O 09/20/16 09/20/16 09/20/16 09/21/16 09/21/16 09/21/16 07:00 15:00 23:00 07:00 15:00 23:00 Intake Total 1180 ml Output Total 400 ml 400 ml Balance 780 ml -400 ml Intake Oral 1180 ml Output Urine Total 400 ml 400 ml # Voids 1 7 1 # Bowel Movements 0 Objective Remarks GENERAL: Thin, chronically ill appearing patient in no apparent distress. SKIN: Warm and dry. CARDIOVASCULAR: Regular rate and rhythm. RESPIRATORY: Limited anterior exam. No accessory muscle use, CTAB. GASTROINTESTINAL: Abdomen soft, nontender, non-distended. NEUROLOGICAL: Awake and alert. PSYCHIATRIC: Insight and judgment normal. 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 (2) Hemiparesis affecting right side as late effect of cerebrovascular accident (CVA) ICD Code: I69.351 Status: Chronic (3) Shortness of breath ICD Code: R06.02 Status: Resolved (4) Fever ICD Code: R50.9 Status: Resolved (5) Abdominal pain ICD Code: R10.9 Status: Resolved (6) Hypertensive emergency ICD Code: I10 Status: Resolved (7) Metabolic acidosis ICD Code: E87.2 Status: Resolved (8) UTI (urinary tract infection) ICD Code: N39.0 Status: Resolved (9) Vaginal discharge ICD Code: N89.8 Status: Resolved (10) Increased urinary frequency ICD Code: R35.0 Status: Resolved Assessment and Plan Left basal ganglia bleed with 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 Venegas has evaluated the patient. The bleed has been stable on repeat head CT. No surgery needed. Speech therapy has been following the patient continue on soft diet with thin liquids Occupational therapy indicates OT at rehabilitation. Patient will need to continue occupational therapy until discharge Physical therapy indicating PT at rehabilitation. We'll need to continue physical therapy, continue right AFO. Norflex for muscle spasms Abdominal pain, resolved Leukocytosis resolved CT scan did not indicate any abnormality SOB, resolved. Chest x-ray without acute abnormality. Right arm pain, controlled Continue Neurontin for right arm neuropathic pain Dysuria, urinary frequency, improved BNP was performed, sodium level was normal. No signs of central DI Urinalysis was performed which did not indicate any signs of infection Continue Belladonna rectal suppository Hypertension, stable Norvasc 10 mg daily Vasotec, clonidine as needed Hypokalemia, stable Patient is on potassium replacement Monitor BMP as needed Alcohol and cocaine abuse dependence patient previously counseled. Status post thiamine Tobacco abuse Counseled on cessation Chronic hepatitis C, chronic Patient with chronic transaminitis continue to follow monthly. liver ultrasound showed fatty infiltration Anxiety. Controlled Seroquel low-dose initiated on 05/27. Bowel regimen Justyna-Colace as needed DVT prophylaxis Sequential compression devices. Discharge Planning Needs Medicaid for placement. Occupational therapy recommends shower bench, 3-1 bedside commode for discharge. PT recommends right AFO. Elisabeth Church Sep 21, 2016 10:06
[2016-09-21 20:00] VITALS: BP 103/69; PULSE 88; RESP 16; TEMP 97.9; O2SAT 94
[2016-09-21] MEDS: ORPHENADRINE CITRATE 100 MG SUSTAINED RELEASE TAB PO PRN (22:34)
[2016-09-21] MEDS: QUEtiapine FUMARATE 25 MG TAB PO SCH (22:34)
[2016-09-21] MEDS: BELLADONNA ALKALOIDS/OPIUM 60 MG SUPP RECTAL SCH (22:35)
[2016-09-22] MEDS: FAMOTIDINE 20 MG TAB PO SCH ×2 (08:37→23:12)
[2016-09-22] MEDS: POTASSIUM CHLORIDE 10 MEQ CONTROLLED RELEASE TAB PO SCH (08:37)
[2016-09-22] MEDS: GABAPENTIN 100 MG CAP PO SCH ×3 (08:37→18:13)
[2016-09-22 09:01] VITALS: BP 142/79; PULSE 78; RESP 15; TEMP 97.3; O2SAT 97
--- NOTE | 2016-09-22 11:06 | HHI.PR ---
Subjective Remarks No acute complaints. No change in clinical status. Objective Vitals Vital Signs Date Time Temp Pulse Resp B/P Pulse Ox O2 Delivery O2 Flow Rate FiO2 09/22/16 09:01 97.3 78 15 142/79 97 09/21/16 20:00 97.9 88 16 103/69 94 I/O 09/21/16 09/21/16 09/21/16 09/22/16 09/22/16 09/22/16 07:00 15:00 23:00 07:00 15:00 23:00 Intake Total 900 ml 930 ml 280 ml Output Total 400 ml 525 ml Balance -400 ml 900 ml 405 ml 280 ml Intake Oral 900 ml 930 ml 280 ml Output Urine Total 400 ml 525 ml # Voids 1 3 3 3 # Bowel Movements 1 2 Objective Remarks GENERAL: Thin, chronically ill appearing patient in no apparent distress. SKIN: Warm and dry. CARDIOVASCULAR: Regular rate and rhythm. RESPIRATORY: Limited anterior exam. No accessory muscle use, CTAB. GASTROINTESTINAL: Normoactive bowel sounds. Abdomen soft, nontender, non- distended. NEUROLOGICAL: Awake and alert. PSYCHIATRIC: Insight and judgment normal. 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 (2) Hemiparesis affecting right side as late effect of cerebrovascular accident (CVA) ICD Code: I69.351 Status: Chronic (3) Shortness of breath ICD Code: R06.02 Status: Resolved (4) Fever ICD Code: R50.9 Status: Resolved (5) Abdominal pain ICD Code: R10.9 Status: Resolved (6) Hypertensive emergency ICD Code: I10 Status: Resolved (7) Metabolic acidosis ICD Code: E87.2 Status: Resolved (8) UTI (urinary tract infection) ICD Code: N39.0 Status: Resolved (9) Vaginal discharge ICD Code: N89.8 Status: Resolved (10) Increased urinary frequency ICD Code: R35.0 Status: Resolved Assessment and Plan Left basal ganglia bleed with 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 Venegas has evaluated the patient. The bleed has been stable on repeat head CT. No surgery needed. Speech therapy has been following the patient continue on soft diet with thin liquids Occupational therapy indicates OT at rehabilitation. Patient will need to continue occupational therapy until discharge Physical therapy indicating PT at rehabilitation. We'll need to continue physical therapy, continue right AFO. Norflex for muscle spasms Abdominal pain, resolved Leukocytosis resolved CT scan did not indicate any abnormality SOB, resolved. Chest x-ray without acute abnormality. Right arm pain, controlled Continue Neurontin for right arm neuropathic pain Dysuria, urinary frequency, improved BNP was performed, sodium level was normal. No signs of central DI Urinalysis was performed which did not indicate any signs of infection Continue Belladonna rectal suppository Hypertension, mildly elevated this morning. Norvasc 10 mg daily Vasotec, clonidine as needed Monitor BP Hypokalemia, stable Patient is on potassium replacement Monitor BMP as needed Alcohol and cocaine abuse dependence patient previously counseled. Status post thiamine Tobacco abuse Counseled on cessation Chronic hepatitis C, chronic Patient with chronic transaminitis continue to follow monthly. liver ultrasound showed fatty infiltration Anxiety. Controlled Seroquel low-dose initiated on 05/27. Bowel regimen Justyna-Colace as needed DVT prophylaxis Sequential compression devices. Discharge Planning Needs Medicaid for placement. Occupational therapy recommends shower bench, 3-1 bedside commode for discharge. PT recommends right AFO. Elisabeth Church Sep 22, 2016 11:06
[2016-09-22 20:00] VITALS: BP 110/80; PULSE 82; RESP 20; TEMP 96.4; O2SAT 97
[2016-09-22] MEDS: BELLADONNA ALKALOIDS/OPIUM 60 MG SUPP RECTAL SCH (23:11)
[2016-09-22] MEDS: ORPHENADRINE CITRATE 100 MG SUSTAINED RELEASE TAB PO PRN (23:11)
[2016-09-22] MEDS: DOCUSATE SODIUM 50 MG/SENNA 8.6 MG TAB PO PRN (23:12)
[2016-09-22] MEDS: QUEtiapine FUMARATE 25 MG TAB PO SCH (23:14)
[2016-09-23 08:00] VITALS: BP 123/82; PULSE 74; RESP 16; TEMP 97.5; O2SAT 95
[2016-09-23] MEDS: FAMOTIDINE 20 MG TAB PO SCH ×2 (08:45→20:46)
[2016-09-23] MEDS: GABAPENTIN 100 MG CAP PO SCH ×3 (08:45→17:23)
[2016-09-23] MEDS: POTASSIUM CHLORIDE 10 MEQ CONTROLLED RELEASE TAB PO SCH (08:45)
--- NOTE | 2016-09-23 11:07 | HHI.PR ---
Subjective Remarks No acute complaints. No change in clinical status. Objective Vitals Vital Signs Date Time Temp Pulse Resp B/P Pulse Ox O2 Delivery O2 Flow Rate FiO2 09/23/16 08:00 97.5 74 16 123/82 95 09/22/16 20:00 96.4 82 20 110/80 97 I/O 09/22/16 09/22/16 09/22/16 09/23/16 09/23/16 09/23/16 07:00 15:00 23:00 07:00 15:00 23:00 Intake Total 280 ml 1280 ml 480 ml Balance 280 ml 1280 ml 480 ml Intake Oral 280 ml 1280 ml 480 ml # Voids 3 6 4 # Bowel Movements 1 0 Objective Remarks GENERAL: Thin, chronically ill appearing patient in no apparent distress. SKIN: Warm and dry. CARDIOVASCULAR: Regular rate and rhythm. RESPIRATORY: Limited anterior exam. No accessory muscle use, CTAB. GASTROINTESTINAL: Abdomen soft, nontender, non-distended. NEUROLOGICAL: Awake and alert. PSYCHIATRIC: Insight and judgment normal. 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 (2) Hemiparesis affecting right side as late effect of cerebrovascular accident (CVA) ICD Code: I69.351 Status: Chronic (3) Shortness of breath ICD Code: R06.02 Status: Resolved (4) Fever ICD Code: R50.9 Status: Resolved (5) Abdominal pain ICD Code: R10.9 Status: Resolved (6) Hypertensive emergency ICD Code: I10 Status: Resolved (7) Metabolic acidosis ICD Code: E87.2 Status: Resolved (8) UTI (urinary tract infection) ICD Code: N39.0 Status: Resolved (9) Vaginal discharge ICD Code: N89.8 Status: Resolved (10) Increased urinary frequency ICD Code: R35.0 Status: Resolved Assessment and Plan Left basal ganglia bleed with 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 Venegas has evaluated the patient. The bleed has been stable on repeat head CT. No surgery needed. Speech therapy has been following the patient continue on soft diet with thin liquids Occupational therapy indicates OT at rehabilitation. Patient will need to continue occupational therapy until discharge Physical therapy indicating PT at rehabilitation. We'll need to continue physical therapy, continue right AFO. Norflex for muscle spasms Abdominal pain, resolved Leukocytosis resolved CT scan did not indicate any abnormality SOB, resolved. Chest x-ray without acute abnormality. Right arm pain, controlled Continue Neurontin for right arm neuropathic pain Dysuria, urinary frequency, improved BNP was performed, sodium level was normal. No signs of central DI Urinalysis was performed which did not indicate any signs of infection Continue Belladonna rectal suppository Hypertension, mildly elevated this morning. Norvasc 10 mg daily Vasotec, clonidine as needed Monitor BP Hypokalemia, stable Patient is on potassium replacement Monitor BMP as needed Alcohol and cocaine abuse dependence patient previously counseled. Status post thiamine Tobacco abuse Counseled on cessation Chronic hepatitis C, chronic Patient with chronic transaminitis continue to follow monthly. liver ultrasound showed fatty infiltration Anxiety. Controlled Seroquel low-dose initiated on 05/27. Bowel regimen Justyna-Colace as needed DVT prophylaxis Sequential compression devices. Discharge Planning Needs Medicaid for placement. Occupational therapy recommends shower bench, 3-1 bedside commode for discharge. PT recommends right AFO. Elisabeth Church Sep 23, 2016 11:07
[2016-09-23 20:00] VITALS: BP 113/83; PULSE 86; RESP 20; TEMP 98.2; O2SAT 95
[2016-09-23] MEDS: BELLADONNA ALKALOIDS/OPIUM 60 MG SUPP RECTAL SCH (20:46)
[2016-09-23] MEDS: QUEtiapine FUMARATE 25 MG TAB PO SCH (20:46)
[2016-09-24] MEDS: POTASSIUM CHLORIDE 10 MEQ CONTROLLED RELEASE TAB PO SCH (07:52)
[2016-09-24] MEDS: GABAPENTIN 100 MG CAP PO SCH ×3 (07:52→17:17)
[2016-09-24] MEDS: FAMOTIDINE 20 MG TAB PO SCH ×2 (07:53→20:51)
[2016-09-24 08:00] VITALS: BP 134/81; PULSE 75; RESP 16; TEMP 96.9; O2SAT 97
--- NOTE | 2016-09-24 10:22 | HHI.PR ---
Subjective Remarks No acute complaints. No change in clinical status. Objective Vitals Vital Signs Date Time Temp Pulse Resp B/P Pulse Ox O2 Delivery O2 Flow Rate FiO2 09/24/16 08:00 96.9 75 16 134/81 97 09/23/16 20:00 98.2 86 20 113/83 95 I/O 09/23/16 09/23/16 09/23/16 09/24/16 09/24/16 09/24/16 07:00 15:00 23:00 07:00 15:00 23:00 Intake Total 480 ml 720 ml 640 ml 400 ml Balance 480 ml 720 ml 640 ml 400 ml Intake Oral 480 ml 720 ml 640 ml 400 ml # Voids 4 2 3 2 # Bowel Movements 0 0 0 0 Objective Remarks GENERAL: Thin, chronically ill appearing patient in no apparent distress. SKIN: Warm and dry. CARDIOVASCULAR: Regular rate and rhythm. RESPIRATORY: Limited anterior exam. No accessory muscle use, CTAB. GASTROINTESTINAL: Abdomen soft, nontender, non-distended. NEUROLOGICAL: Awake and alert. PSYCHIATRIC: Insight and judgment normal. 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 (2) Hemiparesis affecting right side as late effect of cerebrovascular accident (CVA) ICD Code: I69.351 Status: Chronic (3) Shortness of breath ICD Code: R06.02 Status: Resolved (4) Fever ICD Code: R50.9 Status: Resolved (5) Abdominal pain ICD Code: R10.9 Status: Resolved (6) Hypertensive emergency ICD Code: I10 Status: Resolved (7) Metabolic acidosis ICD Code: E87.2 Status: Resolved (8) UTI (urinary tract infection) ICD Code: N39.0 Status: Resolved (9) Vaginal discharge ICD Code: N89.8 Status: Resolved (10) Increased urinary frequency ICD Code: R35.0 Status: Resolved Assessment and Plan Left basal ganglia bleed with 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 Venegas has evaluated the patient. The bleed has been stable on repeat head CT. No surgery needed. Speech therapy has been following the patient continue on soft diet with thin liquids Occupational therapy indicates OT at rehabilitation. Patient will need to continue occupational therapy until discharge Physical therapy indicating PT at rehabilitation. We'll need to continue physical therapy, continue right AFO. Norflex for muscle spasms Abdominal pain, resolved Leukocytosis resolved CT scan did not indicate any abnormality SOB, resolved. Chest x-ray without acute abnormality. Right arm pain, controlled Continue Neurontin for right arm neuropathic pain Dysuria, urinary frequency, improved BNP was performed, sodium level was normal. No signs of central DI Urinalysis was performed which did not indicate any signs of infection Continue Belladonna rectal suppository Hypertension, mildly elevated this morning. Norvasc 10 mg daily Vasotec, clonidine as needed Monitor BP Hypokalemia, stable Patient is on potassium replacement Monitor BMP as needed Alcohol and cocaine abuse dependence patient previously counseled. Status post thiamine Tobacco abuse Counseled on cessation Chronic hepatitis C, chronic Patient with chronic transaminitis continue to follow monthly. liver ultrasound showed fatty infiltration Anxiety. Controlled Seroquel low-dose initiated on 05/27. Bowel regimen Justyna-Colace as needed DVT prophylaxis Sequential compression devices. Discharge Planning Needs Medicaid for placement. Occupational therapy recommends shower bench, 3-1 bedside commode for discharge. PT recommends right AFO. Elisabeth Church Sep 24, 2016 10:22
[2016-09-24 20:00] VITALS: BP 135/86; PULSE 96; RESP 20; TEMP 98.4; O2SAT 94
[2016-09-24] MEDS: QUEtiapine FUMARATE 25 MG TAB PO SCH (20:51)
[2016-09-24] MEDS: BELLADONNA ALKALOIDS/OPIUM 60 MG SUPP RECTAL SCH (20:51)
[2016-09-25] MEDS: POTASSIUM CHLORIDE 10 MEQ CONTROLLED RELEASE TAB PO SCH (08:03)
[2016-09-25] MEDS: FAMOTIDINE 20 MG TAB PO SCH ×2 (08:03→21:44)
[2016-09-25] MEDS: GABAPENTIN 100 MG CAP PO SCH ×3 (08:03→18:00)
[2016-09-25 08:43] VITALS: BP 115/81; PULSE 85; RESP 20; TEMP 97.3; O2SAT 95
--- NOTE | 2016-09-25 13:55 | HHI.PR ---
Subjective Remarks No acute complaints. No change in clinical status. Objective Vitals Vital Signs Date Time Temp Pulse Resp B/P Pulse Ox O2 Delivery O2 Flow Rate FiO2 09/25/16 08:43 97.3 85 20 115/81 95 09/24/16 20:00 98.4 96 20 135/86 94 I/O 09/24/16 09/24/16 09/24/16 09/25/16 09/25/16 09/25/16 07:00 15:00 23:00 07:00 15:00 23:00 Intake Total 400 ml 600 ml 960 ml Output Total 600 ml Balance 400 ml 0 ml 960 ml Intake Oral 400 ml 600 ml 960 ml Output Urine Total 600 ml # Voids 2 6 # Bowel Movements 0 0 0 Objective Remarks GENERAL: Thin, chronically ill appearing patient in no apparent distress sitting in recliner. SKIN: Warm and dry. CARDIOVASCULAR: Regular rate and rhythm. RESPIRATORY: Limited anterior exam. No accessory muscle use, CTAB. GASTROINTESTINAL: Abdomen soft, nontender, non-distended. NEUROLOGICAL: Awake and alert. PSYCHIATRIC: Insight and judgment normal. 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 (2) Hemiparesis affecting right side as late effect of cerebrovascular accident (CVA) ICD Code: I69.351 Status: Chronic (3) Shortness of breath ICD Code: R06.02 Status: Resolved (4) Fever ICD Code: R50.9 Status: Resolved (5) Abdominal pain ICD Code: R10.9 Status: Resolved (6) Hypertensive emergency ICD Code: I10 Status: Resolved (7) Metabolic acidosis ICD Code: E87.2 Status: Resolved (8) UTI (urinary tract infection) ICD Code: N39.0 Status: Resolved (9) Vaginal discharge ICD Code: N89.8 Status: Resolved (10) Increased urinary frequency ICD Code: R35.0 Status: Resolved Assessment and Plan Left basal ganglia bleed with 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 Venegas has evaluated the patient. The bleed has been stable on repeat head CT. No surgery needed. Speech therapy has been following the patient continue on soft diet with thin liquids Occupational therapy indicates OT at rehabilitation. Patient will need to continue occupational therapy until discharge Physical therapy indicating PT at rehabilitation. We'll need to continue physical therapy, continue right AFO. Norflex for muscle spasms Abdominal pain, resolved Leukocytosis resolved CT scan did not indicate any abnormality SOB, resolved. Chest x-ray without acute abnormality. Right arm pain, controlled Continue Neurontin for right arm neuropathic pain Dysuria, urinary frequency, improved BNP was performed, sodium level was normal. No signs of central DI Urinalysis was performed which did not indicate any signs of infection Continue Belladonna rectal suppository Hypertension, mildly elevated this morning. Norvasc 10 mg daily Vasotec, clonidine as needed Monitor BP Hypokalemia, stable Patient is on potassium replacement Monitor BMP as needed Alcohol and cocaine abuse dependence patient previously counseled. Status post thiamine Tobacco abuse Counseled on cessation Chronic hepatitis C, chronic Patient with chronic transaminitis continue to follow monthly. liver ultrasound showed fatty infiltration Anxiety. Controlled Seroquel low-dose initiated on 05/27. Bowel regimen Justyna-Colace as needed DVT prophylaxis Sequential compression devices. Discharge Planning Needs Medicaid for placement. Occupational therapy recommends shower bench, 3-1 bedside commode for discharge. PT recommends right AFO. Elisabeth Church Sep 25, 2016 13:55
[2016-09-25 20:00] VITALS: BP 101/77; PULSE 82; RESP 18; TEMP 97.7; O2SAT 96
[2016-09-25] MEDS: QUEtiapine FUMARATE 25 MG TAB PO SCH (21:00)
[2016-09-25] MEDS: BELLADONNA ALKALOIDS/OPIUM 60 MG SUPP RECTAL SCH (21:44)
[2016-09-26] MEDS: FAMOTIDINE 20 MG TAB PO SCH ×2 (07:52→20:37)
[2016-09-26] MEDS: GABAPENTIN 100 MG CAP PO SCH ×3 (07:52→17:20)
[2016-09-26] MEDS: POTASSIUM CHLORIDE 10 MEQ CONTROLLED RELEASE TAB PO SCH (07:52)
[2016-09-26 08:00] VITALS: BP 104/78; PULSE 78; RESP 18; TEMP 97.6; O2SAT 95
--- NOTE | 2016-09-26 11:41 | HHI.PR ---
Subjective Remarks Patient seen and examined today. Patient denies any new complaints. No change in clinical status. Objective Vitals Vital Signs Date Time Temp Pulse Resp B/P Pulse Ox O2 Delivery O2 Flow Rate FiO2 09/26/16 08:00 97.6 78 18 104/78 95 09/25/16 20:00 97.7 82 18 101/77 96 I/O 09/25/16 09/25/16 09/25/16 09/26/16 09/26/16 09/26/16 06:59 14:59 22:59 06:59 14:59 22:59 Intake Total 960 ml 720 ml 0 ml 0 ml Balance 960 ml 720 ml 0 ml 0 ml Intake Oral 960 ml 720 ml IV Total 0 ml 0 ml # Voids 6 5 3 # Bowel Movements 0 1 Objective Remarks GENERAL: Well-developed, well-nourished, in no acute distress. alert and orientated HEENT: Head is normocephalic without any lesions or masses noted right facial droop. NECK: Supple without any masses. Trachea midline no deviation. CARDIAC: Regular rhythm, regular rate. S1/S2 are heard. No murmurs gallops or rubs. LUNGS: Clear to auscultation bilaterally. No wheeze, rhonchi or rales. No use of accessory muscles on inspiration or expiration. ABDOMEN: Soft, nontender. Nondistended. Bowel sounds heard in all 4 quadrants. No organomegaly or masses. Negative rebound, negative guarding EXTREMITIES: No edema, pulses are equal bilaterally. No cyanosis or clubbing NEUROLOGY: Mood and affect appear appropriate. Dense right hemiparesis which appears to be improving in the lower extremity. Patient is able to move her right hand second third and fourth digit. 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 Venegas has evaluated the patient. The bleed has been stable on repeat head CT. No surgery needed. Speech therapy has been following the patient continue on soft diet with thin liquids Occupational therapy indicates OT at rehabilitation. Patient will need to continue occupational therapy until discharge Physical therapy indicating PT at rehabilitation. 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 No signs of central DI Urinalysis was performed which did not indicate any signs of infection Belladonna rectal suppository Hypertension, stable Norvasc 10 mg daily Vasotec, clonidine as needed Alcohol and cocaine abuse dependence patient previously counseled. Status post thiamine Tobacco abuse Counseled on cessation Chronic hepatitis C, chronic Patient with chronic transaminitis continue to follow monthly. liver ultrasound showed fatty infiltration Anxiety. Controlled Seroquel low-dose initiated on 05/27. Bowel regimen Justyna-Colace as needed DVT prophylaxis Sequential compression devices. Discharge Planning Patient has no funding for rehabilitation. Patient was denied SSI. it portfolio manager is following up with [employer] regarding status of applications. Occupational therapy recommends shower bench, 3-1 bedside commode for discharge. PT recommends right AFO. 08/16, case management spoke with patient's mother who states that she'll assist in discharge planning. Awaiting decision from the [facility] 09/15/16 0707 PATIENT WITH PLACEMENT NEED AN INCOME BASE BUT NEEDING MEDICIAID FOR THIS WELL. THIS IS PENDING ONCE WE HAVE MEDICAID IN PLACE WE CAN SEEK OUT PLACEMENT, [facility] WORKING ON THIS WITH FAMILY GISELA ORTIZ BENNETT/Jaycob Wallace Sep 26, 2016 11:40
[2016-09-26 20:00] VITALS: BP 151/91; PULSE 89; RESP 18; TEMP 99; O2SAT 95
[2016-09-26] MEDS: QUEtiapine FUMARATE 25 MG TAB PO SCH (20:37)
[2016-09-26] MEDS: ACETAMINOPHEN 325 MG TAB PO PRN (20:37)
[2016-09-26] MEDS: BELLADONNA ALKALOIDS/OPIUM 60 MG SUPP RECTAL SCH (20:38)
[2016-09-26] MEDS: ORPHENADRINE CITRATE 100 MG SUSTAINED RELEASE TAB PO PRN (20:38)
[2016-09-27] MEDS: POTASSIUM CHLORIDE 10 MEQ CONTROLLED RELEASE TAB PO SCH (09:22)
[2016-09-27] MEDS: GABAPENTIN 100 MG CAP PO SCH ×3 (09:22→17:57)
[2016-09-27] MEDS: FAMOTIDINE 20 MG TAB PO SCH ×2 (09:23→21:37)
--- NOTE | 2016-09-27 09:23 | HHI.PR ---
Subjective Remarks Patient seen and examined today. Patient denies any new complaints. No change in clinical status. Objective Vitals Vital Signs Date Time Temp Pulse Resp B/P Pulse Ox O2 Delivery O2 Flow Rate FiO2 09/26/16 20:00 99.0 89 18 151/91 95 I/O 09/26/16 09/26/16 09/26/16 09/27/16 09/27/16 09/27/16 06:59 14:59 22:59 06:59 14:59 22:59 Intake Total 0 ml 0 ml 950 ml 400 ml Output Total 275 ml Balance 0 ml 0 ml 675 ml 400 ml Intake Oral 950 ml 400 ml IV Total 0 ml 0 ml Output Urine Total 275 ml # Voids 3 4 4 3 Objective Remarks GENERAL: Well-developed, well-nourished, in no acute distress. alert and orientated HEENT: Head is normocephalic without any lesions or masses noted right facial droop. NECK: Supple without any masses. Trachea midline no deviation. CARDIAC: Regular rhythm, regular rate. S1/S2 are heard. No murmurs gallops or rubs. LUNGS: Clear to auscultation bilaterally. No wheeze, rhonchi or rales. No use of accessory muscles on inspiration or expiration. ABDOMEN: Soft, nontender. Nondistended. Bowel sounds heard in all 4 quadrants. No organomegaly or masses. Negative rebound, negative guarding EXTREMITIES: No edema, pulses are equal bilaterally. No cyanosis or clubbing NEUROLOGY: Mood and affect appear appropriate. Dense right hemiparesis which appears to be improving in the lower extremity. Patient is able to move her right hand second third and fourth digit. 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 Venegas has evaluated the patient. The bleed has been stable on repeat head CT. No surgery needed. Speech therapy has been following the patient continue on soft diet with thin liquids Occupational therapy indicates OT at rehabilitation. Patient will need to continue occupational therapy until discharge Physical therapy indicating PT at rehabilitation. 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 No signs of central DI Urinalysis was performed which did not indicate any signs of infection Belladonna rectal suppository Hypertension, stable Norvasc 10 mg daily Vasotec, clonidine as needed Alcohol and cocaine abuse dependence patient previously counseled. Status post thiamine Tobacco abuse Counseled on cessation Chronic hepatitis C, chronic Patient with chronic transaminitis continue to follow monthly. liver ultrasound showed fatty infiltration Anxiety. Controlled Seroquel low-dose initiated on 05/27. Bowel regimen Justyna-Colace as needed DVT prophylaxis Sequential compression devices. Discharge Planning Patient has no funding for rehabilitation. Patient was denied SSI. area loss prevention manager is following up with [employer] regarding status of applications. Occupational therapy recommends shower bench, 3-1 bedside commode for discharge. PT recommends right AFO. 08/16, case management spoke with patient's mother who states that she'll assist in discharge planning. Awaiting decision from the [facility] in [place] 09/15/16 0707 PATIENT WITH PLACEMENT NEED AN INCOME BASE BUT NEEDING MEDICIAID FOR THIS WELL. THIS IS PENDING ONCE WE HAVE MEDICAID IN PLACE WE CAN SEEK OUT PLACEMENT, [facility] WORKING ON THIS WITH FAMILY GISELA DIANA GUAJARDO/Jaycob Wallace Sep 27, 2016 09:23
[2016-09-27 09:51] VITALS: BP 132/85; PULSE 73; RESP 16; TEMP 98.7; O2SAT 93
[2016-09-27 20:00] VITALS: BP 122/80; PULSE 85; RESP 18; TEMP 98.4; O2SAT 98
[2016-09-27] MEDS: BELLADONNA ALKALOIDS/OPIUM 60 MG SUPP RECTAL SCH (21:36)
[2016-09-27] MEDS: QUEtiapine FUMARATE 25 MG TAB PO SCH (21:37)
[2016-09-27] MEDS: ORPHENADRINE CITRATE 100 MG SUSTAINED RELEASE TAB PO PRN (21:37)
[2016-09-27] MEDS: ACETAMINOPHEN 325 MG TAB PO PRN (21:37)
[2016-09-28 08:00] VITALS: BP 135/79; PULSE 72; RESP 16; TEMP 97.2; O2SAT 94
[2016-09-28] MEDS: GABAPENTIN 100 MG CAP PO SCH ×3 (09:08→17:12)
[2016-09-28] MEDS: POTASSIUM CHLORIDE 10 MEQ CONTROLLED RELEASE TAB PO SCH (09:08)
[2016-09-28] MEDS: FAMOTIDINE 20 MG TAB PO SCH ×2 (09:08→21:54)
--- NOTE | 2016-09-28 09:44 | HHI.PR ---
Subjective Remarks Patient seen and examined today. Patient has any new complaints. No change in clinical status. Objective Vitals Vital Signs Date Time Temp Pulse Resp B/P Pulse Ox O2 Delivery O2 Flow Rate FiO2 09/28/16 08:00 97.2 72 16 135/79 94 09/27/16 20:00 98.4 85 18 122/80 98 09/27/16 09:51 98.7 73 16 132/85 93 I/O 09/27/16 09/27/16 09/27/16 09/28/16 09/28/16 09/28/16 06:59 14:59 22:59 06:59 14:59 22:59 Intake Total 400 ml 1400 ml 400 ml Balance 400 ml 1400 ml 400 ml Intake Oral 400 ml 1400 ml 400 ml # Voids 3 6 3 # Bowel Movements 1 0 Objective Remarks GENERAL: Well-developed, well-nourished, in no acute distress. alert and orientated HEENT: Head is normocephalic without any lesions or masses noted right facial droop. NECK: Supple without any masses. Trachea midline no deviation. CARDIAC: Regular rhythm, regular rate. S1/S2 are heard. No murmurs gallops or rubs. LUNGS: Clear to auscultation bilaterally. No wheeze, rhonchi or rales. No use of accessory muscles on inspiration or expiration. ABDOMEN: Soft, nontender. Nondistended. Bowel sounds heard in all 4 quadrants. No organomegaly or masses. Negative rebound, negative guarding EXTREMITIES: No edema, pulses are equal bilaterally. No cyanosis or clubbing NEUROLOGY: Mood and affect appear appropriate. Dense right hemiparesis which appears to be improving in the lower extremity. Patient is able to move her right hand second third and fourth digit. 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 Venegas has evaluated the patient. The bleed has been stable on repeat head CT. No surgery needed. Speech therapy has been following the patient continue on soft diet with thin liquids Occupational therapy indicates OT at rehabilitation. Patient will need to continue occupational therapy until discharge Physical therapy indicating PT at rehabilitation. 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 No signs of central DI Urinalysis was performed which did not indicate any signs of infection Belladonna rectal suppository Hypertension, stable Norvasc 10 mg daily Vasotec, clonidine as needed Alcohol and cocaine abuse dependence patient previously counseled. Status post thiamine Tobacco abuse Counseled on cessation Chronic hepatitis C, chronic Patient with chronic transaminitis continue to follow monthly. liver ultrasound showed fatty infiltration Anxiety. Controlled Seroquel low-dose initiated on 05/27. Bowel regimen Justyna-Colace as needed DVT prophylaxis Sequential compression devices. Discharge Planning Patient has no funding for rehabilitation. Patient was denied SSI. clerical manager is following up with [employer] regarding status of applications. Occupational therapy recommends shower bench, 3-1 bedside commode for discharge. PT recommends right AFO. 08/16, case management spoke with patient's mother who states that she'll assist in discharge planning. Awaiting decision from the [facility] in [place] 09/15/16 0707 PATIENT WITH PLACEMENT NEED AN INCOME BASE BUT NEEDING MEDICIAID FOR THIS WELL. THIS IS PENDING ONCE WE HAVE MEDICAID IN PLACE WE CAN SEEK OUT PLACEMENT, [facility] WORKING ON THIS WITH FAMILY GISELA DIANA GUAJARDO/Jaycob Wallace Sep 28, 2016 09:44
[2016-09-28 20:00] VITALS: BP 119/88; PULSE 79; RESP 19; TEMP 98.2; O2SAT 95
[2016-09-28] MEDS: BELLADONNA ALKALOIDS/OPIUM 60 MG SUPP RECTAL SCH (21:53)
[2016-09-28] MEDS: ORPHENADRINE CITRATE 100 MG SUSTAINED RELEASE TAB PO PRN (21:53)
[2016-09-28] MEDS: QUEtiapine FUMARATE 25 MG TAB PO SCH (21:54)
[2016-09-28] MEDS: ACETAMINOPHEN 325 MG TAB PO PRN (21:54)
[2016-09-29 05:28] LABS: AUTOMATED NEUTROPHIL # 5.3 TH/MM3 (1.8-7.7); BASOPHIL # 0.1 TH/MM3 (0-0.2); BASOPHIL % 0.7 % (0.0-2.0); EOSINOPHIL # 0.2 TH/MM3 (0-0.4); EOSINOPHIL % 2.6 % (0.0-4.0); HEMATOCRIT 40.5 % (35.0-46.0); HEMO FLAGS DIFF FINAL; LYMPH % 31.2 % (9.0-44.0); LYMPHOCYTE # 2.8 TH/MM3 (1.0-4.8); MEAN CELL VOLUME 86.2 FL (80.0-100.0); MEAN CORPUSCULAR HEMOGLOBIN 28.8 PG (27.0-34.0); MEAN CORPUSCULAR HGB CONC 33.4 % (32.0-36.0); MONO % 7.8 % (0.0-8.0); NEUT % 57.7 % (16.0-70.0); PLATELET COUNT 246 TH/MM3 (150-450); RED CELL DISTRIBUTION WIDTH 11.7 % (11.6-17.2); WHITE BLOOD COUNT 9.1 TH/MM3 (4.0-11.0)
[2016-09-29 05:47] LABS: CHLORIDE 103 MEQ/L (98-107); POTASSIUM 4.2 MEQ/L (3.5-5.1); SODIUM (NA) 138 MEQ/L (136-145)
[2016-09-29 05:51] LABS: ANION GAP 8 MEQ/L (5-15); BICARBONATE 27.4 MEQ/L (21.0-32.0); BLOOD UREA NITROGEN 20 MG/DL (7-18)
[2016-09-29 05:54] LABS: ALT (GPT) 220 U/L (10-53)
[2016-09-29 05:55] LABS: AST (GOT) 112 U/L (15-37); GLOMERULAR FILTRATION RATE 93 ML/MIN (>89)
[2016-09-29 05:56] LABS: TOTAL BILIRUBIN ADULT 0.2 MG/DL (0.2-1.0)
[2016-09-29 05:57] LABS: ALKALINE PHOSPHATASE 84 U/L (45-117)
[2016-09-29 08:00] VITALS: BP 153/89; PULSE 80; RESP 16; TEMP 97.1; O2SAT 93
[2016-09-29] MEDS: POTASSIUM CHLORIDE 10 MEQ CONTROLLED RELEASE TAB PO SCH (09:02)
[2016-09-29] MEDS: FAMOTIDINE 20 MG TAB PO SCH ×2 (09:02→20:48)
[2016-09-29] MEDS: GABAPENTIN 100 MG CAP PO SCH ×3 (09:02→17:42)
--- NOTE | 2016-09-29 10:18 | HHI.PR ---
Subjective Remarks Patient seen and examined today. Patient denies any new complaints. No change in clinical status. Objective Vitals Vital Signs Date Time Temp Pulse Resp B/P Pulse Ox O2 Delivery O2 Flow Rate FiO2 09/29/16 08:00 97.1 80 16 153/89 93 09/28/16 20:00 98.2 79 19 119/88 95 I/O 09/28/16 09/28/16 09/28/16 09/29/16 09/29/16 09/29/16 07:00 15:00 23:00 07:00 15:00 23:00 Intake Total 400 ml 480 ml 480 ml 240 ml Balance 400 ml 480 ml 480 ml 240 ml Intake Oral 400 ml 480 ml 480 ml 240 ml # Voids 3 3 2 2 # Bowel Movements 0 2 0 0 Result Diagram: 09/29/1651109/29/1612 Objective Remarks GENERAL: Well-developed, well-nourished, in no acute distress. alert and orientated HEENT: Head is normocephalic without any lesions or masses noted right facial droop. NECK: Supple without any masses. Trachea midline no deviation. CARDIAC: Regular rhythm, regular rate. S1/S2 are heard. No murmurs gallops or rubs. LUNGS: Clear to auscultation bilaterally. No wheeze, rhonchi or rales. No use of accessory muscles on inspiration or expiration. ABDOMEN: Soft, nontender. Nondistended. Bowel sounds heard in all 4 quadrants. No organomegaly or masses. Negative rebound, negative guarding EXTREMITIES: No edema, pulses are equal bilaterally. No cyanosis or clubbing NEUROLOGY: Mood and affect appear appropriate. Dense right hemiparesis which appears to be improving in the lower extremity. Patient is able to move her right hand second third and fourth digit. 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 Venegas has evaluated the patient. The bleed has been stable on repeat head CT. No surgery needed. Speech therapy has been following the patient continue on soft diet with thin liquids Occupational therapy indicates OT at rehabilitation. Patient will need to continue occupational therapy until discharge Physical therapy indicating PT at rehabilitation. 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 No signs of central DI Urinalysis was performed which did not indicate any signs of infection Belladonna rectal suppository Hypertension, stable Norvasc 10 mg daily Vasotec, clonidine as needed Alcohol and cocaine abuse dependence patient previously counseled. Status post thiamine Tobacco abuse Counseled on cessation Chronic hepatitis C, chronic Patient with chronic transaminitis continue to follow monthly. liver ultrasound showed fatty infiltration Anxiety. Controlled Seroquel low-dose initiated on 05/27. Bowel regimen Justyna-Colace as needed DVT prophylaxis Sequential compression devices. Discharge Planning Patient has no funding for rehabilitation. Patient was denied SSI. systems program manager is following up with [employer] regarding status of applications. Occupational therapy recommends shower bench, 3-1 bedside commode for discharge. PT recommends right AFO. 08/16, case management spoke with patient's mother who states that she'll assist in discharge planning. Awaiting decision from the [facility] 09/15/16 0707 PATIENT WITH PLACEMENT NEED AN INCOME BASE BUT NEEDING MEDICIAID FOR THIS WELL. THIS IS PENDING ONCE WE HAVE MEDICAID IN PLACE WE CAN SEEK OUT PLACEMENT, [facility] WORKING ON THIS WITH FAMILY GISELA DIANA GUAJARDO/Jaycob Wallace Sep 29, 2016 10:18
[2016-09-29 20:00] VITALS: BP 125/86; PULSE 81; RESP 16; TEMP 98.5; O2SAT 96
[2016-09-29] MEDS: QUEtiapine FUMARATE 25 MG TAB PO SCH (20:47)
[2016-09-29] MEDS: BELLADONNA ALKALOIDS/OPIUM 60 MG SUPP RECTAL SCH (20:49)
[2016-09-30 09:00] VITALS: BP 102/77; PULSE 81; RESP 20; TEMP 98.6; O2SAT 96
[2016-09-30] MEDS: POTASSIUM CHLORIDE 10 MEQ CONTROLLED RELEASE TAB PO SCH (09:28)
[2016-09-30] MEDS: FAMOTIDINE 20 MG TAB PO SCH ×2 (09:28→20:15)
[2016-09-30] MEDS: GABAPENTIN 100 MG CAP PO SCH ×3 (09:28→17:14)
--- NOTE | 2016-09-30 10:43 | HHI.PR ---
Subjective Remarks Patient seen and examined today. Patient denies any new complaints. No change in clinical status. Objective Vitals Vital Signs Date Time Temp Pulse Resp B/P Pulse Ox O2 Delivery O2 Flow Rate FiO2 09/29/16 20:00 98.5 81 16 125/86 96 I/O 09/29/16 09/29/16 09/29/16 09/30/16 09/30/16 09/30/16 07:00 15:00 23:00 07:00 15:00 23:00 Intake Total 240 ml 720 ml 780 ml Balance 240 ml 720 ml 780 ml Intake Oral 240 ml 720 ml 780 ml IV Total 0 ml # Voids 2 3 1 4 # Bowel Movements 0 0 0 Result Diagram: 09/29/1651109/29/16511 Objective Remarks GENERAL: Well-developed, well-nourished, in no acute distress. alert and orientated HEENT: Head is normocephalic without any lesions or masses noted right facial droop. NECK: Supple without any masses. Trachea midline no deviation. CARDIAC: Regular rhythm, regular rate. S1/S2 are heard. No murmurs gallops or rubs. LUNGS: Clear to auscultation bilaterally. No wheeze, rhonchi or rales. No use of accessory muscles on inspiration or expiration. ABDOMEN: Soft, nontender. Nondistended. Bowel sounds heard in all 4 quadrants. No organomegaly or masses. Negative rebound, negative guarding EXTREMITIES: No edema, pulses are equal bilaterally. No cyanosis or clubbing NEUROLOGY: Mood and affect appear appropriate. Dense right hemiparesis which appears to be improving in the lower extremity. Patient is able to move her right hand second third and fourth digit. 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 Venegas has evaluated the patient. The bleed has been stable on repeat head CT. No surgery needed. Speech therapy has been following the patient continue on soft diet with thin liquids Occupational therapy indicates OT at rehabilitation. Patient will need to continue occupational therapy until discharge Physical therapy indicating PT at rehabilitation. 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 No signs of central DI Urinalysis was performed which did not indicate any signs of infection Belladonna rectal suppository Hypertension, stable Norvasc 10 mg daily Vasotec, clonidine as needed Alcohol and cocaine abuse dependence patient previously counseled. Status post thiamine Tobacco abuse Counseled on cessation Chronic hepatitis C, chronic Patient with chronic transaminitis continue to follow monthly. liver ultrasound showed fatty infiltration Anxiety. Controlled Seroquel low-dose initiated on 05/27. Bowel regimen Justyna-Colace as needed DVT prophylaxis Sequential compression devices. Discharge Planning Patient has no funding for rehabilitation. Patient was denied SSI. mds manager is following up with [employer] regarding status of applications. Occupational therapy recommends shower bench, 3-1 bedside commode for discharge. PT recommends right AFO. 08/16, case management spoke with patient's mother who states that she'll assist in discharge planning. Awaiting decision from the [facility] 09/15/16 0707 PATIENT WITH PLACEMENT NEED AN INCOME BASE BUT NEEDING MEDICIAID FOR THIS WELL. THIS IS PENDING ONCE WE HAVE MEDICAID IN PLACE WE CAN SEEK OUT PLACEMENT, [facility] WORKING ON THIS WITH FAMILY GISELA DIANA GUAJARDO/Jaycob Wallace Sep 30, 2016 10:43
[2016-09-30 20:00] VITALS: BP 112/78; PULSE 86; RESP 18; TEMP 98.3; O2SAT 96
[2016-09-30] MEDS: BELLADONNA ALKALOIDS/OPIUM 60 MG SUPP RECTAL SCH (20:14)
[2016-09-30] MEDS: QUEtiapine FUMARATE 25 MG TAB PO SCH (20:15)
[2016-10-01 08:00] VITALS: BP 101/85; PULSE 91; RESP 20; TEMP 97.2; O2SAT 96
[2016-10-01] MEDS: FAMOTIDINE 20 MG TAB PO SCH ×2 (08:51→21:00)
[2016-10-01] MEDS: GABAPENTIN 100 MG CAP PO SCH ×3 (08:51→16:08)
[2016-10-01] MEDS: POTASSIUM CHLORIDE 10 MEQ CONTROLLED RELEASE TAB PO SCH (08:52)
--- NOTE | 2016-10-01 09:15 | HHI.PR ---
Subjective Remarks Patient seen and examined today. Patient denies any new complaints. No change in clinical status. Objective Vitals Vital Signs Date Time Temp Pulse Resp B/P Pulse Ox O2 Delivery O2 Flow Rate FiO2 09/30/16 20:00 98.3 86 18 112/78 96 I/O 09/30/16 09/30/16 09/30/16 10/01/16 10/01/16 10/01/16 07:00 15:00 23:00 07:00 15:00 23:00 Intake Total 780 ml 1000 ml 2120 ml 420 ml Balance 780 ml 1000 ml 2120 ml 420 ml Intake Oral 780 ml 1000 ml 2120 ml 420 ml # Voids 4 4 7 2 # Bowel Movements 0 0 0 0 Result Diagram: 09/29/1651109/29/16511 Objective Remarks GENERAL: Well-developed, well-nourished, in no acute distress. alert and orientated HEENT: Head is normocephalic without any lesions or masses noted right facial droop. NECK: Supple without any masses. Trachea midline no deviation. CARDIAC: Regular rhythm, regular rate. S1/S2 are heard. No murmurs gallops or rubs. LUNGS: Clear to auscultation bilaterally. No wheeze, rhonchi or rales. No use of accessory muscles on inspiration or expiration. ABDOMEN: Soft, nontender. Nondistended. Bowel sounds heard in all 4 quadrants. No organomegaly or masses. Negative rebound, negative guarding EXTREMITIES: No edema, pulses are equal bilaterally. No cyanosis or clubbing NEUROLOGY: Mood and affect appear appropriate. Dense right hemiparesis which appears to be improving in the lower extremity. Patient is able to move her right hand second third and fourth digit. 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 Venegas has evaluated the patient. The bleed has been stable on repeat head CT. No surgery needed. Speech therapy has been following the patient continue on soft diet with thin liquids Occupational therapy indicates OT at rehabilitation. Patient will need to continue occupational therapy until discharge Physical therapy indicating PT at rehabilitation. 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 No signs of central DI Urinalysis was performed which did not indicate any signs of infection Belladonna rectal suppository Hypertension, stable Norvasc 10 mg daily Vasotec, clonidine as needed Alcohol and cocaine abuse dependence patient previously counseled. Status post thiamine Tobacco abuse Counseled on cessation Chronic hepatitis C, chronic Patient with chronic transaminitis continue to follow monthly. liver ultrasound showed fatty infiltration Anxiety. Controlled Seroquel low-dose initiated on 05/27. Bowel regimen Justyna-Colace as needed DVT prophylaxis Sequential compression devices. Discharge Planning Patient has no funding for rehabilitation. Patient was denied SSI. billing services manager is following up with [employer] regarding status of applications. Occupational therapy recommends shower bench, 3-1 bedside commode for discharge. PT recommends right AFO. 08/16, case management spoke with patient's mother who states that she'll assist in discharge planning. Awaiting decision from the [facility] 09/15/16 0707 PATIENT WITH PLACEMENT NEED AN INCOME BASE BUT NEEDING MEDICIAID FOR THIS WELL. THIS IS PENDING ONCE WE HAVE MEDICAID IN PLACE WE CAN SEEK OUT PLACEMENT, [facility] WORKING ON THIS WITH FAMILY GISELA ORTIZ BENNETT/Jaycob Wallace Oct 01, 2016 09:15
[2016-10-01] MEDS: BELLADONNA ALKALOIDS/OPIUM 60 MG SUPP RECTAL SCH (21:32)
[2016-10-01] MEDS: QUEtiapine FUMARATE 25 MG TAB PO SCH (21:32)
[2016-10-01] MEDS: ACETAMINOPHEN 325 MG TAB PO PRN (21:36)
[2016-10-01 23:47] VITALS: BP 142/93; PULSE 85; RESP 22; TEMP 97.6; O2SAT 95
[2016-10-02 08:00] VITALS: BP 130/82; PULSE 68; RESP 16; TEMP 96.3; O2SAT 97
[2016-10-02] MEDS: GABAPENTIN 100 MG CAP PO SCH ×3 (09:42→17:21)
[2016-10-02] MEDS: FAMOTIDINE 20 MG TAB PO SCH ×2 (09:42→22:11)
[2016-10-02] MEDS: POTASSIUM CHLORIDE 10 MEQ CONTROLLED RELEASE TAB PO SCH (09:43)
--- NOTE | 2016-10-02 10:56 | HHI.PR ---
Subjective Remarks Patient seen and examined today. Patient denies any new complaints. No change in clinical status. Objective Vitals Vital Signs Date Time Temp Pulse Resp B/P Pulse Ox O2 Delivery O2 Flow Rate FiO2 10/02/16 08:00 96.3 68 16 130/82 97 10/01/16 23:47 97.6 85 22 142/93 95 10/01/16 23:46 20 I/O 10/01/16 10/01/16 10/01/16 10/02/16 10/02/16 10/02/16 07:00 15:00 23:00 07:00 15:00 23:00 Intake Total 420 ml 800 ml 1360 ml Balance 420 ml 800 ml 1360 ml Intake Oral 420 ml 800 ml 1360 ml # Voids 2 5 7 # Bowel Movements 0 0 0 Result Diagram: 09/29/1651109/29/16511 Objective Remarks GENERAL: Well-developed, well-nourished, in no acute distress. alert and orientated HEENT: Head is normocephalic without any lesions or masses noted right facial droop. NECK: Supple without any masses. Trachea midline no deviation. CARDIAC: Regular rhythm, regular rate. S1/S2 are heard. No murmurs gallops or rubs. LUNGS: Clear to auscultation bilaterally. No wheeze, rhonchi or rales. No use of accessory muscles on inspiration or expiration. ABDOMEN: Soft, nontender. Nondistended. Bowel sounds heard in all 4 quadrants. No organomegaly or masses. Negative rebound, negative guarding EXTREMITIES: No edema, pulses are equal bilaterally. No cyanosis or clubbing NEUROLOGY: Mood and affect appear appropriate. Dense right hemiparesis which appears to be improving in the lower extremity. Patient is able to move her right hand second third and fourth digit. 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 Venegas has evaluated the patient. The bleed has been stable on repeat head CT. No surgery needed. Speech therapy has been following the patient continue on soft diet with thin liquids Occupational therapy indicates OT at rehabilitation. Patient will need to continue occupational therapy until discharge Physical therapy indicating PT at rehabilitation. 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 No signs of central DI Urinalysis was performed which did not indicate any signs of infection Belladonna rectal suppository Hypertension, stable Norvasc 10 mg daily Vasotec, clonidine as needed Alcohol and cocaine abuse dependence patient previously counseled. Status post thiamine Tobacco abuse Counseled on cessation Chronic hepatitis C, chronic Patient with chronic transaminitis continue to follow monthly. liver ultrasound showed fatty infiltration Anxiety. Controlled Seroquel low-dose initiated on 05/27. Bowel regimen Justyna-Colace as needed DVT prophylaxis Sequential compression devices. Discharge Planning Patient has no funding for rehabilitation. Patient was denied SSI. 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 Occupational therapy recommends shower bench, 3-1 bedside commode for discharge. PT recommends right AFO. 08/16, case management spoke with patient's mother who states that she'll assist in discharge planning. Awaiting decision from the [facility] in [place] 09/15/16 0707 PATIENT WITH PLACEMENT NEED AN INCOME BASE BUT NEEDING MEDICIAID FOR THIS WELL. THIS IS PENDING ONCE WE HAVE MEDICAID IN PLACE WE CAN SEEK OUT PLACEMENT, [facility] WORKING ON THIS WITH FAMILY GISELA ORTIZ BENNETT/Jaycob Wallace Oct 02, 2016 10:55
[2016-10-02 22:01] VITALS: BP 136/88; PULSE 62; RESP 18; TEMP 98.7; O2SAT 95
[2016-10-02] MEDS: QUEtiapine FUMARATE 25 MG TAB PO SCH (22:11)
[2016-10-02] MEDS: BELLADONNA ALKALOIDS/OPIUM 60 MG SUPP RECTAL SCH (22:11)
[2016-10-03 08:00] VITALS: BP 126/88; PULSE 72; RESP 18; TEMP 97.2; O2SAT 96
[2016-10-03] MEDS: GABAPENTIN 100 MG CAP PO SCH ×3 (09:42→17:58)
[2016-10-03] MEDS: POTASSIUM CHLORIDE 10 MEQ CONTROLLED RELEASE TAB PO SCH (09:42)
[2016-10-03] MEDS: FAMOTIDINE 20 MG TAB PO SCH ×2 (09:42→21:09)
--- NOTE | 2016-10-03 09:55 | HHI.PR ---
Subjective Remarks Patient seen and examined today. Patient denies any new complaints. No change in clinical status. Objective Vitals Vital Signs Date Time Temp Pulse Resp B/P Pulse Ox O2 Delivery O2 Flow Rate FiO2 10/03/16 08:00 97.2 72 18 126/88 96 10/02/16 22:01 98.7 62 18 136/88 95 I/O 10/02/16 10/02/16 10/02/16 10/03/16 10/03/16 10/03/16 07:00 15:00 23:00 07:00 15:00 23:00 Intake Total 1360 ml 720 ml Output Total 600 ml 800 ml Balance 1360 ml 720 ml -600 ml -800 ml Intake Oral 1360 ml 720 ml Output Urine Total 600 ml 800 ml # Voids 7 2 # Bowel Movements 0 0 Result Diagram: 09/29/1651109/29/16511 Objective Remarks GENERAL: Well-developed, well-nourished, in no acute distress. alert and orientated HEENT: Head is normocephalic without any lesions or masses noted right facial droop. NECK: Supple without any masses. Trachea midline no deviation. CARDIAC: Regular rhythm, regular rate. S1/S2 are heard. No murmurs gallops or rubs. LUNGS: Clear to auscultation bilaterally. No wheeze, rhonchi or rales. No use of accessory muscles on inspiration or expiration. ABDOMEN: Soft, nontender. Nondistended. Bowel sounds heard in all 4 quadrants. No organomegaly or masses. Negative rebound, negative guarding EXTREMITIES: No edema, pulses are equal bilaterally. No cyanosis or clubbing NEUROLOGY: Mood and affect appear appropriate. Dense right hemiparesis which appears to be improving in the lower extremity. Patient is able to move her right hand second third and fourth digit. 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 Venegas has evaluated the patient. The bleed has been stable on repeat head CT. No surgery needed. Speech therapy has been following the patient continue on soft diet with thin liquids Occupational therapy indicates OT at rehabilitation. Patient will need to continue occupational therapy until discharge Physical therapy indicating PT at rehabilitation. 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 No signs of central DI Urinalysis was performed which did not indicate any signs of infection Belladonna rectal suppository Hypertension, stable Norvasc 10 mg daily Vasotec, clonidine as needed Alcohol and cocaine abuse dependence patient previously counseled. Status post thiamine Tobacco abuse Counseled on cessation Chronic hepatitis C, chronic Patient with chronic transaminitis continue to follow monthly. liver ultrasound showed fatty infiltration Anxiety. Controlled Seroquel low-dose initiated on 05/27. Bowel regimen Justyna-Colace as needed DVT prophylaxis Sequential compression devices. Discharge Planning Patient has no funding for rehabilitation. Patient was denied SSI. manager technology is following up with [employer] regarding status of applications. Occupational therapy recommends shower bench, 3-1 bedside commode for discharge. PT recommends right AFO. 08/16, case management spoke with patient's mother who states that she'll assist in discharge planning. Awaiting decision from the [facility] in [place] 09/15/16 0707 PATIENT WITH PLACEMENT NEED AN INCOME BASE BUT NEEDING MEDICIAID FOR THIS WELL. THIS IS PENDING ONCE WE HAVE MEDICAID IN PLACE WE CAN SEEK OUT PLACEMENT, [facility] WORKING ON THIS WITH FAMILY GISELA ORTIZ BENNETT/Jaycob Wallace Oct 03, 2016 09:55
[2016-10-03] MEDS: BELLADONNA ALKALOIDS/OPIUM 60 MG SUPP RECTAL SCH (21:09)
[2016-10-03] MEDS: QUEtiapine FUMARATE 25 MG TAB PO SCH (21:09)
[2016-10-03 21:44] VITALS: BP 125/78; PULSE 88; RESP 18; TEMP 98.7; O2SAT 95
[2016-10-04 08:00] VITALS: BP 127/86; PULSE 82; RESP 16; TEMP 98.4; O2SAT 96
[2016-10-04] MEDS: FAMOTIDINE 20 MG TAB PO SCH ×2 (08:20→21:47)
[2016-10-04] MEDS: GABAPENTIN 100 MG CAP PO SCH ×3 (08:20→17:06)
[2016-10-04] MEDS: POTASSIUM CHLORIDE 10 MEQ CONTROLLED RELEASE TAB PO SCH (08:20)
--- NOTE | 2016-10-04 10:00 | HHI.PR ---
Subjective Remarks Patient seen and examined today. Patient denies any new complaints. No change in clinical status. Objective Vitals Vital Signs Date Time Temp Pulse Resp B/P Pulse Ox O2 Delivery O2 Flow Rate FiO2 10/04/16 08:00 98.4 82 16 127/86 96 10/03/16 21:44 98.7 88 18 125/78 95 I/O 10/03/16 10/03/16 10/03/16 10/04/16 10/04/16 10/04/16 07:00 15:00 23:00 07:00 15:00 23:00 Intake Total 600 ml Output Total 800 ml 1100 ml 400 ml Balance -800 ml 600 ml -1100 ml -400 ml Intake Oral 600 ml Output Urine Total 800 ml 1100 ml 400 ml # Voids 2 # Bowel Movements 0 1 Objective Remarks GENERAL: Well-developed, well-nourished, in no acute distress. alert and orientated HEENT: Head is normocephalic without any lesions or masses noted right facial droop. NECK: Supple without any masses. Trachea midline no deviation. CARDIAC: Regular rhythm, regular rate. S1/S2 are heard. No murmurs gallops or rubs. LUNGS: Clear to auscultation bilaterally. No wheeze, rhonchi or rales. No use of accessory muscles on inspiration or expiration. ABDOMEN: Soft, nontender. Nondistended. Bowel sounds heard in all 4 quadrants. No organomegaly or masses. Negative rebound, negative guarding EXTREMITIES: No edema, pulses are equal bilaterally. No cyanosis or clubbing NEUROLOGY: Mood and affect appear appropriate. Dense right hemiparesis which appears to be improving in the lower extremity. Patient is able to move her right hand second third and fourth digit. 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 Venegas has evaluated the patient. The bleed has been stable on repeat head CT. No surgery needed. Speech therapy has been following the patient continue on soft diet with thin liquids Occupational therapy indicates OT at rehabilitation. Patient will need to continue occupational therapy until discharge Physical therapy indicating PT at rehabilitation. 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 No signs of central DI Urinalysis was performed which did not indicate any signs of infection Belladonna rectal suppository Hypertension, stable Norvasc 10 mg daily Vasotec, clonidine as needed Alcohol and cocaine abuse dependence patient previously counseled. Status post thiamine Tobacco abuse Counseled on cessation Chronic hepatitis C, chronic Patient with chronic transaminitis continue to follow monthly. liver ultrasound showed fatty infiltration Anxiety. Controlled Seroquel low-dose initiated on 05/27. Bowel regimen Justyna-Colace as needed DVT prophylaxis Sequential compression devices. Discharge Planning Patient has no funding for rehabilitation. Patient was denied SSI. sr. payroll manager is following up with [employer] regarding status of applications. Occupational therapy recommends shower bench, 3-1 bedside commode for discharge. PT recommends right AFO. 08/16, case management spoke with patient's mother who states that she'll assist in discharge planning. Awaiting decision from the [facility] 09/15/16 0707 PATIENT WITH PLACEMENT NEED AN INCOME BASE BUT NEEDING MEDICIAID FOR THIS WELL. THIS IS PENDING ONCE WE HAVE MEDICAID IN PLACE WE CAN SEEK OUT PLACEMENT, [facility] WORKING ON THIS WITH FAMILY GISELA ORTIZ BENNETT/Jaycob Wallace Oct 04, 2016 10:00
[2016-10-04 21:00] VITALS: BP 122/78; PULSE 83; RESP 20; TEMP 96.8; O2SAT 96
[2016-10-04] MEDS: BELLADONNA ALKALOIDS/OPIUM 60 MG SUPP RECTAL SCH (21:47)
[2016-10-04] MEDS: QUEtiapine FUMARATE 25 MG TAB PO SCH (21:49)
[2016-10-05 08:00] VITALS: BP 126/84; PULSE 113; RESP 19; TEMP 97.1; O2SAT 95
[2016-10-05] MEDS: FAMOTIDINE 20 MG TAB PO SCH ×2 (09:44→20:51)
[2016-10-05] MEDS: GABAPENTIN 100 MG CAP PO SCH ×3 (09:44→18:01)
[2016-10-05] MEDS: POTASSIUM CHLORIDE 10 MEQ CONTROLLED RELEASE TAB PO SCH (09:44)
--- NOTE | 2016-10-05 15:20 | HHI.PR ---
Subjective Remarks No acute complaints. No change in clinical status. Objective Vitals Vital Signs Date Time Temp Pulse Resp B/P Pulse Ox O2 Delivery O2 Flow Rate FiO2 10/05/16 08:00 97.1 113 19 126/84 95 10/04/16 21:00 96.8 83 20 122/78 96 I/O 10/04/16 10/04/16 10/04/16 10/05/16 10/05/16 10/05/16 06:59 14:59 22:59 06:59 14:59 22:59 Intake Total 660 ml 210 ml 240 ml 620 ml Output Total 400 ml 200 ml 700 ml Balance -400 ml 660 ml 10 ml -460 ml 620 ml Intake Oral 660 ml 210 ml 240 ml 620 ml IV Total 0 ml Output Urine Total 400 ml 200 ml 700 ml # Voids 3 3 3 2 Objective Remarks GENERAL: Thin, chronically ill appearing patient in no apparent distress sitting in recliner. SKIN: Warm and dry. CARDIOVASCULAR: Regular rate and rhythm. RESPIRATORY: Limited anterior exam. No accessory muscle use, CTAB. GASTROINTESTINAL: Abdomen soft, nontender, non-distended. MUSCULOSKELETAL: Intact right distal radial pulse. NEUROLOGICAL: Awake and alert. PSYCHIATRIC: Insight and judgment normal. 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 (2) Hemiparesis affecting right side as late effect of cerebrovascular accident (CVA) ICD Code: I69.351 Status: Chronic (3) Shortness of breath ICD Code: R06.02 Status: Resolved (4) Fever ICD Code: R50.9 Status: Resolved (5) Abdominal pain ICD Code: R10.9 Status: Resolved (6) Hypertensive emergency ICD Code: I10 Status: Resolved (7) Metabolic acidosis ICD Code: E87.2 Status: Resolved (8) UTI (urinary tract infection) ICD Code: N39.0 Status: Resolved (9) Vaginal discharge ICD Code: N89.8 Status: Resolved (10) Increased urinary frequency ICD Code: R35.0 Status: Resolved Assessment and Plan Left basal ganglia bleed with 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 Venegas has evaluated the patient. The bleed has been stable on repeat head CT. No surgery needed. Speech therapy indicated soft diet with thin liquids Occupational therapy indicates OT at rehabilitation. Patient will need to continue occupational therapy until discharge Physical therapy indicating PT at rehabilitation. We'll need to continue physical therapy, continue right AFO. Norflex for muscle spasms Abdominal pain, resolved Leukocytosis resolved CT scan did not indicate any abnormality SOB, resolved. Chest x-ray without acute abnormality. Right arm pain, controlled Continue Neurontin for right arm neuropathic pain Dysuria, urinary frequency, improved BNP was performed, sodium level was normal. No signs of central DI Urinalysis was performed which did not indicate any signs of infection Continue Belladonna rectal suppository Hypertension, mildly elevated this morning. Norvasc 10 mg daily Vasotec, clonidine as needed Monitor BP Hypokalemia, stable Patient is on potassium replacement Monitor BMP as needed Alcohol and cocaine abuse dependence patient previously counseled. Status post thiamine Tobacco abuse Counseled on cessation Chronic hepatitis C, chronic Patient with chronic transaminitis continue to follow monthly. 09/29 AST and ALT stable from prior. liver ultrasound showed fatty infiltration Anxiety. Controlled Seroquel low-dose initiated on 05/27. Bowel regimen Justyna-Colace as needed DVT prophylaxis Sequential compression devices. Discharge Planning Needs Medicaid for placement. Occupational therapy recommends shower bench, 3-1 bedside commode for discharge. PT recommends right AFO. Elisabeth Church Oct 05, 2016 15:20 Yarely Buckley DO Oct 06, 2016 01:51
[2016-10-05 20:00] VITALS: BP 117/78; PULSE 88; RESP 18; TEMP 97.1; O2SAT 95
[2016-10-05] MEDS: BELLADONNA ALKALOIDS/OPIUM 60 MG SUPP RECTAL SCH (20:51)
[2016-10-05] MEDS: QUEtiapine FUMARATE 25 MG TAB PO SCH (20:51)
[2016-10-06 08:00] VITALS: BP 112/72; PULSE 72; RESP 16; TEMP 96.1; O2SAT 96
[2016-10-06] MEDS: GABAPENTIN 100 MG CAP PO SCH ×3 (08:52→18:00)
[2016-10-06] MEDS: POTASSIUM CHLORIDE 10 MEQ CONTROLLED RELEASE TAB PO SCH (08:53)
[2016-10-06] MEDS: FAMOTIDINE 20 MG TAB PO SCH ×2 (08:53→20:49)
--- NOTE | 2016-10-06 14:46 | HHI.PR ---
Subjective Remarks No acute complaints. No change in clinical status. Objective Vitals Vital Signs Date Time Temp Pulse Resp B/P Pulse Ox O2 Delivery O2 Flow Rate FiO2 10/06/16 08:00 96.1 72 16 112/72 96 10/05/16 20:00 97.1 88 18 117/78 95 I/O 10/05/16 10/05/16 10/05/16 10/06/16 10/06/16 10/06/16 07:00 15:00 23:00 07:00 15:00 23:00 Intake Total 240 ml 620 ml Output Total 700 ml Balance -460 ml 620 ml Intake Oral 240 ml 620 ml IV Total 0 ml Output Urine Total 700 ml # Voids 3 2 2 Objective Remarks GENERAL: Thin, chronically ill appearing patient in no apparent distress sitting in recliner. CARDIOVASCULAR: Regular rate and rhythm. RESPIRATORY: Limited anterior exam. No accessory muscle use, CTAB. GASTROINTESTINAL: Abdomen soft, nontender, non-distended. NEUROLOGICAL: Awake and alert. PSYCHIATRIC: Insight and judgment normal. 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 (2) Hemiparesis affecting right side as late effect of cerebrovascular accident (CVA) ICD Code: I69.351 Status: Chronic (3) Shortness of breath ICD Code: R06.02 Status: Resolved (4) Fever ICD Code: R50.9 Status: Resolved (5) Abdominal pain ICD Code: R10.9 Status: Resolved (6) Hypertensive emergency ICD Code: I10 Status: Resolved (7) Metabolic acidosis ICD Code: E87.2 Status: Resolved (8) UTI (urinary tract infection) ICD Code: N39.0 Status: Resolved (9) Vaginal discharge ICD Code: N89.8 Status: Resolved (10) Increased urinary frequency ICD Code: R35.0 Status: Resolved Assessment and Plan Left basal ganglia bleed with 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 Venegas has evaluated the patient. The bleed has been stable on repeat head CT. No surgery needed. Speech therapy indicated soft diet with thin liquids Occupational therapy indicates OT at rehabilitation. Patient will need to continue occupational therapy until discharge Physical therapy indicating PT at rehabilitation. We'll need to continue physical therapy, continue right AFO. Norflex for muscle spasms Abdominal pain: Resolved Leukocytosis resolved CT scan did not indicate any abnormality SOB: Resolved. Chest x-ray without acute abnormality. 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 No signs of central DI Urinalysis was performed which did not indicate any signs of infection Continue Belladonna rectal suppository Hypertension: Controlled Norvasc 10 mg daily Vasotec, clonidine as needed Monitor BP Hypokalemia: Resolved. Patient is on potassium replacement Monitor BMP as needed Alcohol and cocaine abuse dependence patient previously counseled. Status post thiamine Tobacco abuse Counseled on cessation Chronic hepatitis C, chronic Patient with chronic transaminitis continue to follow monthly. 09/29 AST and ALT stable from prior. liver ultrasound showed fatty infiltration Anxiety: Controlled Seroquel low-dose initiated on 05/27. Bowel regimen Justyna-Colace as needed DVT prophylaxis Sequential compression devices. Discharge Planning Needs Medicaid for placement. Occupational therapy recommends shower bench, 3-1 bedside commode for discharge. PT recommends right AFO. Elisabeth Church Oct 06, 2016 14:46 Yarely Buckley DO Oct 07, 2016 00:58
[2016-10-06 20:00] VITALS: BP 123/81; PULSE 88; RESP 18; TEMP 96.5; O2SAT 96
[2016-10-06] MEDS: BELLADONNA ALKALOIDS/OPIUM 60 MG SUPP RECTAL SCH (20:49)
[2016-10-06] MEDS: QUEtiapine FUMARATE 25 MG TAB PO SCH (20:50)
[2016-10-07 08:00] VITALS: BP 121/79; PULSE 74; RESP 16; TEMP 97.7; O2SAT 95
[2016-10-07] MEDS: POTASSIUM CHLORIDE 10 MEQ CONTROLLED RELEASE TAB PO SCH (08:54)
[2016-10-07] MEDS: FAMOTIDINE 20 MG TAB PO SCH ×2 (08:55→21:55)
[2016-10-07] MEDS: GABAPENTIN 100 MG CAP PO SCH ×3 (08:55→17:52)
--- NOTE | 2016-10-07 10:57 | HHI.PR ---
Subjective Remarks No acute complaints. No change in clinical status. Objective Vitals Vital Signs Date Time Temp Pulse Resp B/P Pulse Ox O2 Delivery O2 Flow Rate FiO2 10/07/16 08:00 97.7 74 16 121/79 95 10/06/16 20:00 96.5 88 18 123/81 96 I/O 10/06/16 10/06/16 10/06/16 10/07/16 10/07/16 10/07/16 07:00 15:00 23:00 07:00 15:00 23:00 Intake Total 480 ml Balance 480 ml Intake Oral 480 ml IV Total 0 ml # Voids 2 2 # Bowel Movements 0 Objective Remarks GENERAL: Thin, chronically ill appearing patient in no apparent distress. CARDIOVASCULAR: Regular rate and rhythm. RESPIRATORY: Limited anterior exam. No accessory muscle use, CTAB. GASTROINTESTINAL: Abdomen soft, nontender, non-distended. NEUROLOGICAL: Sleeping when I enter, but arouses to voice. PSYCHIATRIC: Insight and judgment normal. 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 (2) Hemiparesis affecting right side as late effect of cerebrovascular accident (CVA) ICD Code: I69.351 Status: Chronic (3) Shortness of breath ICD Code: R06.02 Status: Resolved (4) Fever ICD Code: R50.9 Status: Resolved (5) Abdominal pain ICD Code: R10.9 Status: Resolved (6) Hypertensive emergency ICD Code: I10 Status: Resolved (7) Metabolic acidosis ICD Code: E87.2 Status: Resolved (8) UTI (urinary tract infection) ICD Code: N39.0 Status: Resolved (9) Vaginal discharge ICD Code: N89.8 Status: Resolved (10) Increased urinary frequency ICD Code: R35.0 Status: Resolved Assessment and Plan Left basal ganglia bleed with 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 Venegas has evaluated the patient. The bleed has been stable on repeat head CT. No surgery needed. Speech therapy indicated soft diet with thin liquids Occupational therapy indicates OT at rehabilitation. Patient will need to continue occupational therapy until discharge Physical therapy indicating PT at rehabilitation. We'll need to continue physical therapy, continue right AFO. Norflex for muscle spasms Abdominal pain: Resolved Leukocytosis resolved CT scan did not indicate any abnormality SOB: Resolved. Chest x-ray without acute abnormality. 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 No signs of central DI Urinalysis was performed which did not indicate any signs of infection Continue Belladonna rectal suppository Hypertension: Controlled Norvasc 10 mg daily Vasotec, clonidine as needed Monitor BP Hypokalemia: Resolved. Patient is on potassium replacement Monitor BMP as needed Alcohol and cocaine abuse dependence patient previously counseled. Status post thiamine Tobacco abuse Counseled on cessation Chronic hepatitis C, chronic Patient with chronic transaminitis continue to follow monthly. 09/29 AST and ALT stable from prior. liver ultrasound showed fatty infiltration Anxiety: Controlled Seroquel low-dose initiated on 05/27. Bowel regimen Justyna-Colace as needed DVT prophylaxis Sequential compression devices. Discharge Planning Needs Medicaid for placement. Occupational therapy recommends shower bench, 3-1 bedside commode for discharge. PT recommends right AFO. Elisabeth Church Oct 07, 2016 10:57 am Yarely Buckley DO Oct 07, 2016 6:49 pm
[2016-10-07 20:00] VITALS: BP 133/77; PULSE 51; RESP 20; TEMP 97.2; O2SAT 96
[2016-10-07] MEDS: BELLADONNA ALKALOIDS/OPIUM 60 MG SUPP RECTAL SCH (21:54)
[2016-10-07] MEDS: QUEtiapine FUMARATE 25 MG TAB PO SCH (21:54)
[2016-10-08 08:29] VITALS: BP 119/80; PULSE 78; RESP 19; TEMP 97.6; O2SAT 95
[2016-10-08] MEDS: FAMOTIDINE 20 MG TAB PO SCH ×2 (08:37→21:06)
[2016-10-08] MEDS: GABAPENTIN 100 MG CAP PO SCH ×3 (08:37→17:22)
[2016-10-08] MEDS: POTASSIUM CHLORIDE 10 MEQ CONTROLLED RELEASE TAB PO SCH (08:37)
--- NOTE | 2016-10-08 10:07 | HHI.PR ---
Subjective Remarks No acute complaints. No change in clinical status. Objective Vitals Vital Signs Date Time Temp Pulse Resp B/P Pulse Ox O2 Delivery O2 Flow Rate FiO2 10/08/16 08:29 97.6 78 19 119/80 95 10/07/16 20:00 97.2 51 20 133/77 96 I/O 10/07/16 10/07/16 10/07/16 10/08/16 10/08/16 10/08/16 07:00 15:00 23:00 07:00 15:00 23:00 Intake Total 480 ml 480 ml 480 ml Balance 480 ml 480 ml 480 ml Intake Oral 480 ml 480 ml 480 ml # Voids 2 2 3 # Bowel Movements 0 1 1 Objective Remarks GENERAL: Thin, chronically ill appearing patient in no apparent distress. CARDIOVASCULAR: Regular rate and rhythm. RESPIRATORY: Limited anterior exam. No accessory muscle use, CTAB. GASTROINTESTINAL: Abdomen soft, nontender, non-distended. NEUROLOGICAL: Awake and alert. PSYCHIATRIC: Insight and judgment normal. 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 (2) Hemiparesis affecting right side as late effect of cerebrovascular accident (CVA) ICD Code: I69.351 Status: Chronic (3) Shortness of breath ICD Code: R06.02 Status: Resolved (4) Fever ICD Code: R50.9 Status: Resolved (5) Abdominal pain ICD Code: R10.9 Status: Resolved (6) Hypertensive emergency ICD Code: I10 Status: Resolved (7) Metabolic acidosis ICD Code: E87.2 Status: Resolved (8) UTI (urinary tract infection) ICD Code: N39.0 Status: Resolved (9) Vaginal discharge ICD Code: N89.8 Status: Resolved (10) Increased urinary frequency ICD Code: R35.0 Status: Resolved Assessment and Plan Left basal ganglia bleed with 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 Venegas has evaluated the patient. The bleed has been stable on repeat head CT. No surgery needed. Speech therapy indicated soft diet with thin liquids Occupational therapy indicates OT at rehabilitation. Patient will need to continue occupational therapy until discharge Physical therapy indicating PT at rehabilitation. We'll need to continue physical therapy, continue right AFO. Norflex for muscle spasms Abdominal pain: Resolved Leukocytosis resolved CT scan did not indicate any abnormality SOB: Resolved. Chest x-ray without acute abnormality. 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 No signs of central DI Urinalysis was performed which did not indicate any signs of infection Continue Belladonna rectal suppository Hypertension: Controlled Norvasc 10 mg daily Vasotec, clonidine as needed Monitor BP Hypokalemia: Resolved. Patient is on potassium replacement Monitor BMP as needed Alcohol and cocaine abuse dependence patient previously counseled. Status post thiamine Tobacco abuse Counseled on cessation Chronic hepatitis C, chronic Patient with chronic transaminitis continue to follow monthly. 09/29 AST and ALT stable from prior. liver ultrasound showed fatty infiltration Anxiety: Controlled Seroquel low-dose initiated on 05/27. Bowel regimen Justyna-Colace as needed DVT prophylaxis Sequential compression devices. Discharge Planning Needs Medicaid for placement. Occupational therapy recommends shower bench, 3-1 bedside commode for discharge. PT recommends right AFO. Elisabeth Church Oct 08, 2016 10:06
[2016-10-08 20:00] VITALS: BP 130/85; PULSE 85; RESP 20; TEMP 97.4; O2SAT 97
[2016-10-08] MEDS: QUEtiapine FUMARATE 25 MG TAB PO SCH (21:05)
[2016-10-08] MEDS: BELLADONNA ALKALOIDS/OPIUM 60 MG SUPP RECTAL SCH (21:05)
[2016-10-09 08:00] VITALS: BP 130/84; PULSE 79; RESP 18; TEMP 96.6; O2SAT 98
--- NOTE | 2016-10-09 09:52 | HHI.PR ---
Subjective Remarks No acute complaints. No change in clinical status. Objective Vitals Vital Signs Date Time Temp Pulse Resp B/P Pulse Ox O2 Delivery O2 Flow Rate FiO2 10/09/16 08:00 96.6 79 18 130/84 98 10/08/16 20:00 97.4 85 20 130/85 97 I/O 10/08/16 10/08/16 10/08/16 10/09/16 10/09/16 10/09/16 06:59 14:59 22:59 06:59 14:59 22:59 Intake Total 480 ml 560 ml 480 ml 240 ml Balance 480 ml 560 ml 480 ml 240 ml Intake Oral 480 ml 560 ml 480 ml 240 ml # Voids 3 4 2 # Bowel Movements 1 1 1 Objective Remarks GENERAL: Thin, chronically ill appearing patient in no apparent distress. CARDIOVASCULAR: Regular rate and rhythm. RESPIRATORY: Limited anterior exam. No accessory muscle use, CTAB. GASTROINTESTINAL: Abdomen soft, nontender, non-distended. NEUROLOGICAL: Awake and alert. PSYCHIATRIC: Insight and judgment normal. 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 (2) Hemiparesis affecting right side as late effect of cerebrovascular accident (CVA) ICD Code: I69.351 Status: Chronic (3) Shortness of breath ICD Code: R06.02 Status: Resolved (4) Fever ICD Code: R50.9 Status: Resolved (5) Abdominal pain ICD Code: R10.9 Status: Resolved (6) Hypertensive emergency ICD Code: I10 Status: Resolved (7) Metabolic acidosis ICD Code: E87.2 Status: Resolved (8) UTI (urinary tract infection) ICD Code: N39.0 Status: Resolved (9) Vaginal discharge ICD Code: N89.8 Status: Resolved (10) Increased urinary frequency ICD Code: R35.0 Status: Resolved Assessment and Plan Left basal ganglia bleed with 4mm MLS with dense Right hemiparesis, stable secondary to cocaine and uncontrolled hypertension Neurosurgery, Dr. Venegas has evaluated the patient. The bleed has been stable on repeat head CT. No surgery needed. Speech therapy indicated soft diet with thin liquids Occupational therapy indicates OT at rehabilitation. Patient will need to continue occupational therapy until discharge Physical therapy indicating PT at rehabilitation. We'll need to continue physical therapy, continue right AFO. Norflex for muscle spasms Abdominal pain: Resolved Leukocytosis resolved CT scan did not indicate any abnormality SOB: Resolved. Chest x-ray without acute abnormality. 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 No signs of central DI Urinalysis was performed which did not indicate any signs of infection Continue Belladonna rectal suppository Hypertension: Controlled Norvasc 10 mg daily Vasotec, clonidine as needed Monitor BP Hypokalemia: Resolved. Patient is on potassium replacement Monitor BMP as needed Alcohol and cocaine abuse dependence patient previously counseled. Status post thiamine Tobacco abuse Counseled on cessation Chronic hepatitis C, chronic Patient with chronic transaminitis continue to follow monthly. 09/29 AST and ALT stable from prior. liver ultrasound showed fatty infiltration Anxiety: Controlled Seroquel low-dose initiated on 05/27. Bowel regimen Justyna-Colace as needed DVT prophylaxis Sequential compression devices. Discharge Planning Needs Medicaid for placement. Occupational therapy recommends shower bench, 3-1 bedside commode for discharge. PT recommends right AFO. Elisabeth Church Oct 09, 2016 09:52
[2016-10-09] MEDS: FAMOTIDINE 20 MG TAB PO SCH ×2 (10:13→21:27)
[2016-10-09] MEDS: POTASSIUM CHLORIDE 10 MEQ CONTROLLED RELEASE TAB PO SCH (10:13)
[2016-10-09] MEDS: GABAPENTIN 100 MG CAP PO SCH ×3 (10:13→17:50)
[2016-10-09 20:00] VITALS: BP 129/84; PULSE 82; RESP 18; TEMP 97.6; O2SAT 96
[2016-10-09] MEDS: QUEtiapine FUMARATE 25 MG TAB PO SCH (21:27)
[2016-10-09] MEDS: BELLADONNA ALKALOIDS/OPIUM 60 MG SUPP RECTAL SCH (21:27)
[2016-10-10 08:00] VITALS: BP 127/85; PULSE 79; RESP 20; TEMP 96.1; O2SAT 97
[2016-10-10] MEDS: GABAPENTIN 100 MG CAP PO SCH ×3 (09:48→18:10)
[2016-10-10] MEDS: POTASSIUM CHLORIDE 10 MEQ CONTROLLED RELEASE TAB PO SCH (09:49)
[2016-10-10] MEDS: FAMOTIDINE 20 MG TAB PO SCH ×2 (09:49→20:40)
--- NOTE | 2016-10-10 09:49 | HHI.PR ---
Subjective Remarks No acute complaints. No change in clinical status. Objective Vitals Vital Signs Date Time Temp Pulse Resp B/P Pulse Ox O2 Delivery O2 Flow Rate FiO2 10/10/16 08:00 96.1 79 20 127/85 97 10/09/16 20:00 97.6 82 18 129/84 96 I/O 10/09/16 10/09/16 10/09/16 10/10/16 10/10/16 10/10/16 06:59 14:59 22:59 06:59 14:59 22:59 Intake Total 240 ml 930 ml 64 ml Balance 240 ml 930 ml 64 ml Intake Oral 240 ml 930 ml 64 ml # Voids 2 4 2 # Bowel Movements 1 0 Objective Remarks GENERAL: Thin, chronically ill appearing patient in no apparent distress. CARDIOVASCULAR: Regular rate and rhythm. RESPIRATORY: Limited anterior exam. No accessory muscle use, CTAB. GASTROINTESTINAL: Abdomen soft, nontender, non-distended. NEUROLOGICAL: Awake and alert. PSYCHIATRIC: Insight and judgment normal. 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 (2) Hemiparesis affecting right side as late effect of cerebrovascular accident (CVA) ICD Code: I69.351 Status: Chronic (3) Shortness of breath ICD Code: R06.02 Status: Resolved (4) Fever ICD Code: R50.9 Status: Resolved (5) Abdominal pain ICD Code: R10.9 Status: Resolved (6) Hypertensive emergency ICD Code: I10 Status: Resolved (7) Metabolic acidosis ICD Code: E87.2 Status: Resolved (8) UTI (urinary tract infection) ICD Code: N39.0 Status: Resolved (9) Vaginal discharge ICD Code: N89.8 Status: Resolved (10) Increased urinary frequency ICD Code: R35.0 Status: Resolved Assessment and Plan Left basal ganglia bleed with 4mm MLS with dense Right hemiparesis, stable secondary to cocaine and uncontrolled hypertension Neurosurgery, Dr. Venegas has evaluated the patient. The bleed has been stable on repeat head CT. No surgery needed. Speech therapy indicated soft diet with thin liquids Occupational therapy indicates OT at rehabilitation. Patient will need to continue occupational therapy until discharge Physical therapy indicating PT at rehabilitation. We'll need to continue physical therapy, continue right AFO. Norflex for muscle spasms Abdominal pain: Resolved Leukocytosis resolved CT scan did not indicate any abnormality SOB: Resolved. Chest x-ray without acute abnormality. 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 No signs of central DI Urinalysis was performed which did not indicate any signs of infection Continue Belladonna rectal suppository Hypertension: Controlled Norvasc 10 mg daily Vasotec, clonidine as needed Monitor BP Hypokalemia: Resolved. Patient is on potassium replacement Monitor BMP as needed Alcohol and cocaine abuse dependence patient previously counseled. Status post thiamine Tobacco abuse Counseled on cessation Chronic hepatitis C, chronic Patient with chronic transaminitis continue to follow monthly. 09/29 AST and ALT stable from prior. liver ultrasound showed fatty infiltration Anxiety: Controlled Seroquel low-dose initiated on 05/27. Bowel regimen Justyna-Colace as needed DVT prophylaxis Sequential compression devices. Discharge Planning Needs Medicaid for placement. Occupational therapy recommends shower bench, 3-1 bedside commode for discharge. PT recommends right AFO. Elisabeth Church Oct 10, 2016 09:49
[2016-10-10] MEDS: BELLADONNA ALKALOIDS/OPIUM 60 MG SUPP RECTAL SCH (20:40)
[2016-10-10] MEDS: ORPHENADRINE CITRATE 100 MG SUSTAINED RELEASE TAB PO PRN (20:40)
[2016-10-10] MEDS: QUEtiapine FUMARATE 25 MG TAB PO SCH (20:40)
[2016-10-10 21:16] VITALS: BP 130/87; PULSE 85; RESP 20; TEMP 98.3; O2SAT 96
[2016-10-11 08:00] VITALS: BP 124/80; PULSE 79; RESP 18; TEMP 97; O2SAT 95
[2016-10-11] MEDS: GABAPENTIN 100 MG CAP PO SCH ×3 (08:38→17:44)
[2016-10-11] MEDS: POTASSIUM CHLORIDE 10 MEQ CONTROLLED RELEASE TAB PO SCH (08:38)
[2016-10-11] MEDS: FAMOTIDINE 20 MG TAB PO SCH ×2 (08:38→21:17)
--- NOTE | 2016-10-11 10:57 | HHI.PR ---
Subjective Remarks No acute complaints. No change in clinical status. Objective Vitals Vital Signs Date Time Temp Pulse Resp B/P Pulse Ox O2 Delivery O2 Flow Rate FiO2 10/11/16 08:00 97.0 79 18 124/80 95 10/10/16 21:16 98.3 85 20 130/87 96 I/O 10/10/16 10/10/16 10/10/16 10/11/16 10/11/16 10/11/16 07:00 15:00 23:00 07:00 15:00 23:00 Intake Total 2140 ml 850 ml 300 ml Output Total 600 ml Balance 2140 ml 850 ml -300 ml Intake Oral 2140 ml 850 ml 300 ml Output Urine Total 600 ml # Voids 3 4 3 # Bowel Movements 0 Objective Remarks GENERAL: Thin, chronically ill appearing patient in no apparent distress. CARDIOVASCULAR: Regular rate and rhythm. RESPIRATORY: Limited anterior exam. No accessory muscle use, CTAB. GASTROINTESTINAL: Abdomen soft, nontender, non-distended. NEUROLOGICAL: Awake and alert. PSYCHIATRIC: Insight and judgment normal. 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 (2) Hemiparesis affecting right side as late effect of cerebrovascular accident (CVA) ICD Code: I69.351 Status: Chronic (3) Shortness of breath ICD Code: R06.02 Status: Resolved (4) Fever ICD Code: R50.9 Status: Resolved (5) Abdominal pain ICD Code: R10.9 Status: Resolved (6) Hypertensive emergency ICD Code: I10 Status: Resolved (7) Metabolic acidosis ICD Code: E87.2 Status: Resolved (8) UTI (urinary tract infection) ICD Code: N39.0 Status: Resolved (9) Vaginal discharge ICD Code: N89.8 Status: Resolved (10) Increased urinary frequency ICD Code: R35.0 Status: Resolved Assessment and Plan Left basal ganglia bleed with 4mm MLS with dense Right hemiparesis, stable secondary to cocaine and uncontrolled hypertension Neurosurgery, Dr. Venegas has evaluated the patient. The bleed has been stable on repeat head CT. No surgery needed. Speech therapy indicated soft diet with thin liquids Occupational therapy indicates OT at rehabilitation. Patient will need to continue occupational therapy until discharge Physical therapy indicating PT at rehabilitation. We'll need to continue physical therapy, continue right AFO. Norflex for muscle spasms Abdominal pain: Resolved Leukocytosis resolved CT scan did not indicate any abnormality SOB: Resolved. Chest x-ray without acute abnormality. 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 No signs of central DI Urinalysis was performed which did not indicate any signs of infection Continue Belladonna rectal suppository Hypertension: Controlled Norvasc 10 mg daily Vasotec, clonidine as needed Monitor BP Hypokalemia: Resolved. Patient is on potassium replacement Monitor BMP as needed Alcohol and cocaine abuse dependence patient previously counseled. Status post thiamine Tobacco abuse Counseled on cessation Chronic hepatitis C, chronic Patient with chronic transaminitis continue to follow monthly. 09/29 AST and ALT stable from prior. liver ultrasound showed fatty infiltration Anxiety: Controlled Seroquel low-dose initiated on 05/27. Bowel regimen Justyna-Colace as needed DVT prophylaxis Sequential compression devices. Discharge Planning Needs Medicaid for placement. Occupational therapy recommends shower bench, 3-1 bedside commode for discharge. PT recommends right AFO. Elisabeth Church Oct 11, 2016 10:57
[2016-10-11 20:00] VITALS: BP 124/85; PULSE 80; RESP 20; TEMP 98.2; O2SAT 94
[2016-10-11] MEDS: QUEtiapine FUMARATE 25 MG TAB PO SCH (21:15)
[2016-10-11] MEDS: BELLADONNA ALKALOIDS/OPIUM 60 MG SUPP RECTAL SCH (21:16)
[2016-10-11] MEDS: ORPHENADRINE CITRATE 100 MG SUSTAINED RELEASE TAB PO PRN (21:17)
[2016-10-11] MEDS: DOCUSATE SODIUM 50 MG/SENNA 8.6 MG TAB PO PRN (21:19)
[2016-10-12 08:00] VITALS: BP 133/84; PULSE 78; RESP 16; TEMP 96.8; O2SAT 97
[2016-10-12] MEDS: FAMOTIDINE 20 MG TAB PO SCH ×2 (08:45→21:15)
[2016-10-12] MEDS: POTASSIUM CHLORIDE 10 MEQ CONTROLLED RELEASE TAB PO SCH (08:45)
[2016-10-12] MEDS: GABAPENTIN 100 MG CAP PO SCH ×3 (08:46→16:30)
--- NOTE | 2016-10-12 11:10 | HHI.PR ---
Subjective Remarks Patient seen and examined today. Patient denies any new complaints. No change in clinical status. Objective Vitals Vital Signs Date Time Temp Pulse Resp B/P Pulse Ox O2 Delivery O2 Flow Rate FiO2 10/12/16 08:00 96.8 78 16 133/84 97 10/11/16 20:00 98.2 80 20 124/85 94 I/O 10/11/16 10/11/16 10/11/16 10/12/16 10/12/16 10/12/16 06:59 14:59 22:59 06:59 14:59 22:59 Intake Total 300 ml 620 ml 480 ml 240 ml Output Total 600 ml Balance -300 ml 620 ml 480 ml 240 ml Intake Oral 300 ml 620 ml 480 ml 240 ml Output Urine Total 600 ml # Voids 3 4 2 3 # Bowel Movements 0 0 0 Objective Remarks GENERAL: Well-developed, well-nourished, in no acute distress. alert and orientated HEENT: Head is normocephalic without any lesions or masses noted right facial droop. NECK: Supple without any masses. Trachea midline no deviation. CARDIAC: Regular rhythm, regular rate. S1/S2 are heard. No murmurs gallops or rubs. LUNGS: Clear to auscultation bilaterally. No wheeze, rhonchi or rales. No use of accessory muscles on inspiration or expiration. ABDOMEN: Soft, nontender. Nondistended. Bowel sounds heard in all 4 quadrants. No organomegaly or masses. Negative rebound, negative guarding EXTREMITIES: No edema, pulses are equal bilaterally. No cyanosis or clubbing NEUROLOGY: Mood and affect appear appropriate. Dense right hemiparesis which appears to be improving in the lower extremity. Patient is able to move her right hand second third and fourth digit. 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 Venegas has evaluated the patient. The bleed has been stable on repeat head CT. No surgery needed. Speech therapy has been following the patient continue on soft diet with thin liquids Occupational therapy indicates OT at rehabilitation. Patient will need to continue occupational therapy until discharge Physical therapy indicating PT at rehabilitation. 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 No signs of central DI Urinalysis was performed which did not indicate any signs of infection Belladonna rectal suppository Hypertension, stable Norvasc 10 mg daily Vasotec, clonidine as needed Alcohol and cocaine abuse dependence patient previously counseled. Status post thiamine Tobacco abuse Counseled on cessation Chronic hepatitis C, chronic Patient with chronic transaminitis continue to follow monthly. liver ultrasound showed fatty infiltration Anxiety. Controlled Seroquel low-dose initiated on 05/27. Bowel regimen Justyna-Colace as needed DVT prophylaxis Sequential compression devices. Discharge Planning Patient has no funding for rehabilitation. Patient was denied SSI. disease case manager is following up with [facility] regarding status of applications. Occupational therapy recommends shower bench, 3-1 bedside commode for discharge. PT recommends right AFO. 08/16, case management spoke with patient's mother who states that she'll assist in discharge planning. Awaiting decision from the [facility] in [place] 10/07/16: Pt remains in house. Pt requires SNF placement. Pt remains Medicaid pending. When Medicaid approved, pt can be placed. Per previous CM note, [facility] is working on this with family. CM following. Jaycob Rebolledo Oct 12, 2016 11:10
[2016-10-12 20:00] VITALS: BP 132/85; PULSE 85; RESP 16; TEMP 99; O2SAT 96
[2016-10-12] MEDS: ORPHENADRINE CITRATE 100 MG SUSTAINED RELEASE TAB PO PRN (21:14)
[2016-10-12] MEDS: BELLADONNA ALKALOIDS/OPIUM 60 MG SUPP RECTAL SCH (21:15)
[2016-10-12] MEDS: QUEtiapine FUMARATE 25 MG TAB PO SCH (21:15)
[2016-10-13 08:00] VITALS: BP 115/82; PULSE 79; RESP 16; TEMP 96.2; O2SAT 95
--- NOTE | 2016-10-13 09:18 | HHI.PR ---
Subjective Remarks Patient seen and examined today. Patient denies any new complaints. No change in clinical status. Objective Vitals Vital Signs Date Time Temp Pulse Resp B/P Pulse Ox O2 Delivery O2 Flow Rate FiO2 10/13/16 08:00 96.2 79 16 115/82 95 10/12/16 20:00 99.0 85 16 132/85 96 I/O 10/12/16 10/12/16 10/12/16 10/13/16 10/13/16 10/13/16 07:00 15:00 23:00 07:00 15:00 23:00 Intake Total 240 ml 1600 ml 300 ml Output Total 800 ml Balance 240 ml 1600 ml -500 ml Intake Oral 240 ml 1600 ml 300 ml Output Urine Total 800 ml # Voids 3 3 3 # Bowel Movements 0 1 Objective Remarks GENERAL: Well-developed, well-nourished, in no acute distress. alert and orientated HEENT: Head is normocephalic without any lesions or masses noted right facial droop. NECK: Supple without any masses. Trachea midline no deviation. CARDIAC: Regular rhythm, regular rate. S1/S2 are heard. No murmurs gallops or rubs. LUNGS: Clear to auscultation bilaterally. No wheeze, rhonchi or rales. No use of accessory muscles on inspiration or expiration. ABDOMEN: Soft, nontender. Nondistended. Bowel sounds heard in all 4 quadrants. No organomegaly or masses. Negative rebound, negative guarding EXTREMITIES: No edema, pulses are equal bilaterally. No cyanosis or clubbing NEUROLOGY: Mood and affect appear appropriate. Dense right hemiparesis which appears to be improving in the lower extremity. Patient is able to move her right hand second third and fourth digit. 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 Venegas has evaluated the patient. The bleed has been stable on repeat head CT. No surgery needed. Speech therapy has been following the patient continue on soft diet with thin liquids Occupational therapy indicates OT at rehabilitation. Patient will need to continue occupational therapy until discharge Physical therapy indicating PT at rehabilitation. 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 No signs of central DI Urinalysis was performed which did not indicate any signs of infection Belladonna rectal suppository Hypertension, stable Norvasc 10 mg daily Vasotec, clonidine as needed Alcohol and cocaine abuse dependence patient previously counseled. Status post thiamine Tobacco abuse Counseled on cessation Chronic hepatitis C, chronic Patient with chronic transaminitis continue to follow monthly. liver ultrasound showed fatty infiltration Anxiety. Controlled Seroquel low-dose initiated on 05/27. Bowel regimen Justyna-Colace as needed DVT prophylaxis Sequential compression devices. Discharge Planning Patient has no funding for rehabilitation. Patient was denied SSI. client solutions manager is following up with [facility] regarding status of applications. Occupational therapy recommends shower bench, 3-1 bedside commode for discharge. PT recommends right AFO. 08/16, case management spoke with patient's mother who states that she'll assist in discharge planning. Awaiting decision from the [facility] [place] 10/07/16: Pt remains in house. Pt requires SNF placement. Pt remains Medicaid pending. When Medicaid approved, pt can be placed. Per previous CM note, [facility] is working on this with family. CM following. Jaycob Rebolledo Oct 13, 2016 09:18
[2016-10-13] MEDS: POTASSIUM CHLORIDE 10 MEQ CONTROLLED RELEASE TAB PO SCH (09:45)
[2016-10-13] MEDS: GABAPENTIN 100 MG CAP PO SCH ×2 (09:45→11:48)
[2016-10-13] MEDS: FAMOTIDINE 20 MG TAB PO SCH ×2 (09:45→22:05)
[2016-10-13 20:00] VITALS: BP 129/83; PULSE 89; RESP 18; TEMP 97.6; O2SAT 97
[2016-10-13] MEDS: BELLADONNA ALKALOIDS/OPIUM 60 MG SUPP RECTAL SCH (22:05)
[2016-10-13] MEDS: QUEtiapine FUMARATE 25 MG TAB PO SCH (22:05)
[2016-10-14 08:00] VITALS: BP 122/70; PULSE 80; RESP 18; TEMP 98.2; O2SAT 96
[2016-10-14] MEDS: FAMOTIDINE 20 MG TAB PO SCH ×2 (08:25→20:38)
[2016-10-14] MEDS: ORPHENADRINE CITRATE 100 MG SUSTAINED RELEASE TAB PO PRN (08:25)
[2016-10-14] MEDS: GABAPENTIN 100 MG CAP PO SCH ×3 (08:25→17:29)
[2016-10-14] MEDS: POTASSIUM CHLORIDE 10 MEQ CONTROLLED RELEASE TAB PO SCH (08:25)
--- NOTE | 2016-10-14 08:47 | HHI.PR ---
Subjective Remarks Patient seen and examined today. Patient denies any new complaints. No change in clinical status. Objective Vitals Vital Signs Date Time Temp Pulse Resp B/P Pulse Ox O2 Delivery O2 Flow Rate FiO2 10/13/16 20:00 97.6 89 18 129/83 97 I/O 10/13/16 10/13/16 10/13/16 10/14/16 10/14/16 10/14/16 07:00 15:00 23:00 07:00 15:00 23:00 Intake Total 300 ml 1140 ml 720 ml 360 ml Output Total 800 ml Balance -500 ml 1140 ml 720 ml 360 ml Intake Oral 300 ml 1140 ml 720 ml 360 ml Output Urine Total 800 ml # Voids 3 4 5 2 # Bowel Movements 2 Objective Remarks GENERAL: Well-developed, well-nourished, in no acute distress. alert and orientated HEENT: Head is normocephalic without any lesions or masses noted right facial droop. NECK: Supple without any masses. Trachea midline no deviation. CARDIAC: Regular rhythm, regular rate. S1/S2 are heard. No murmurs gallops or rubs. LUNGS: Clear to auscultation bilaterally. No wheeze, rhonchi or rales. No use of accessory muscles on inspiration or expiration. ABDOMEN: Soft, nontender. Nondistended. Bowel sounds heard in all 4 quadrants. No organomegaly or masses. Negative rebound, negative guarding EXTREMITIES: No edema, pulses are equal bilaterally. No cyanosis or clubbing NEUROLOGY: Mood and affect appear appropriate. Dense right hemiparesis which appears to be improving in the lower extremity. Patient is able to move her right hand second third and fourth digit. 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 Venegas has evaluated the patient. The bleed has been stable on repeat head CT. No surgery needed. Speech therapy has been following the patient continue on soft diet with thin liquids Occupational therapy indicates OT at rehabilitation. Patient will need to continue occupational therapy until discharge Physical therapy indicating PT at rehabilitation. 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 No signs of central DI Urinalysis was performed which did not indicate any signs of infection Belladonna rectal suppository Hypertension, stable Norvasc 10 mg daily Vasotec, clonidine as needed Alcohol and cocaine abuse dependence patient previously counseled. Status post thiamine Tobacco abuse Counseled on cessation Chronic hepatitis C, chronic Patient with chronic transaminitis continue to follow monthly. liver ultrasound showed fatty infiltration Anxiety. Controlled Seroquel low-dose initiated on 05/27. Bowel regimen Justyna-Colace as needed DVT prophylaxis Sequential compression devices. Discharge Planning Patient has no funding for rehabilitation. Patient was denied SSI. care process manager is following up with [facility] regarding status of applications. Occupational therapy recommends shower bench, 3-1 bedside commode for discharge. PT recommends right AFO. 08/16, case management spoke with patient's mother who states that she'll assist in discharge planning. Awaiting decision from the [facility] [place] 10/07/16: Pt remains in house. Pt requires SNF placement. Pt remains Medicaid pending. When Medicaid approved, pt can be placed. Per previous CM note, [facility] is working on this with family. CM following. Jaycob Rebolledo Oct 14, 2016 08:47
[2016-10-14 20:00] VITALS: BP 126/83; PULSE 84; RESP 18; TEMP 97.5; O2SAT 96
[2016-10-14] MEDS: BELLADONNA ALKALOIDS/OPIUM 60 MG SUPP RECTAL SCH (20:38)
[2016-10-14] MEDS: QUEtiapine FUMARATE 25 MG TAB PO SCH (20:38)
[2016-10-15 08:00] VITALS: BP 115/76; PULSE 78; RESP 18; TEMP 98.1; O2SAT 95
[2016-10-15] MEDS: FAMOTIDINE 20 MG TAB PO SCH ×2 (08:53→20:57)
[2016-10-15] MEDS: POTASSIUM CHLORIDE 10 MEQ CONTROLLED RELEASE TAB PO SCH (08:53)
[2016-10-15] MEDS: GABAPENTIN 100 MG CAP PO SCH ×3 (08:53→17:55)
--- NOTE | 2016-10-15 14:47 | HHI.PR ---
Subjective Remarks Patient seen and examined today. Patient denies any new complaints. No change in clinical status. Objective Vitals Vital Signs Date Time Temp Pulse Resp B/P Pulse Ox O2 Delivery O2 Flow Rate FiO2 10/15/16 08:00 98.1 78 18 115/76 95 10/14/16 20:00 97.5 84 18 126/83 96 I/O 10/14/16 10/14/16 10/14/16 10/15/16 10/15/16 10/15/16 07:00 15:00 23:00 07:00 15:00 23:00 Intake Total 360 ml 720 ml 720 ml 960 ml Balance 360 ml 720 ml 720 ml 960 ml Intake Oral 360 ml 720 ml 720 ml 960 ml # Voids 2 2 2 3 Objective Remarks GENERAL: Well-developed, well-nourished, in no acute distress. alert and orientated HEENT: Head is normocephalic without any lesions or masses noted right facial droop. NECK: Supple without any masses. Trachea midline no deviation. CARDIAC: Regular rhythm, regular rate. S1/S2 are heard. No murmurs gallops or rubs. LUNGS: Clear to auscultation bilaterally. No wheeze, rhonchi or rales. No use of accessory muscles on inspiration or expiration. ABDOMEN: Soft, nontender. Nondistended. Bowel sounds heard in all 4 quadrants. No organomegaly or masses. Negative rebound, negative guarding EXTREMITIES: No edema, pulses are equal bilaterally. No cyanosis or clubbing NEUROLOGY: Mood and affect appear appropriate. Dense right hemiparesis which appears to be improving in the lower extremity. Patient is able to move her right hand second third and fourth digit. 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 Venegas has evaluated the patient. The bleed has been stable on repeat head CT. No surgery needed. Speech therapy has been following the patient continue on soft diet with thin liquids Occupational therapy indicates OT at rehabilitation. Patient will need to continue occupational therapy until discharge Physical therapy indicating PT at rehabilitation. 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 No signs of central DI Urinalysis was performed which did not indicate any signs of infection Belladonna rectal suppository Hypertension, stable Norvasc 10 mg daily Vasotec, clonidine as needed Alcohol and cocaine abuse dependence patient previously counseled. Status post thiamine Tobacco abuse Counseled on cessation Chronic hepatitis C, chronic Patient with chronic transaminitis continue to follow monthly. liver ultrasound showed fatty infiltration Anxiety. Controlled Seroquel low-dose initiated on 05/27. Bowel regimen Justyna-Colace as needed DVT prophylaxis Sequential compression devices. Discharge Planning Patient has no funding for rehabilitation. Patient was denied SSI. lodging manager is following up with [facility] regarding status of applications. Occupational therapy recommends shower bench, 3-1 bedside commode for discharge. PT recommends right AFO. 08/16, case management spoke with patient's mother who states that she'll assist in discharge planning. Awaiting decision from the [facility] [place] 10/07/16: Pt remains in house. Pt requires SNF placement. Pt remains Medicaid pending. When Medicaid approved, pt can be placed. Per previous CM note, [facility] is working on this with family. CM following. Jaycob Rebolledo Oct 15, 2016 14:47
[2016-10-15 20:00] VITALS: BP 121/78; PULSE 78; RESP 20; TEMP 98.5; O2SAT 98
[2016-10-15] MEDS: QUEtiapine FUMARATE 25 MG TAB PO SCH (20:57)
[2016-10-15] MEDS: BELLADONNA ALKALOIDS/OPIUM 60 MG SUPP RECTAL SCH (20:57)
[2016-10-16 08:00] VITALS: BP 116/78; PULSE 73; RESP 17; TEMP 96.2; O2SAT 94
[2016-10-16] MEDS: POTASSIUM CHLORIDE 10 MEQ CONTROLLED RELEASE TAB PO SCH (09:24)
[2016-10-16] MEDS: GABAPENTIN 100 MG CAP PO SCH ×3 (09:24→16:39)
[2016-10-16] MEDS: FAMOTIDINE 20 MG TAB PO SCH ×2 (09:25→20:26)
--- NOTE | 2016-10-16 10:16 | HHI.PR ---
Subjective Remarks Patient seen and examined today. Patient denies any new complaints. No change in clinical status Objective Vitals Vital Signs Date Time Temp Pulse Resp B/P Pulse Ox O2 Delivery O2 Flow Rate FiO2 10/16/16 08:00 96.2 73 17 116/78 94 10/15/16 20:00 98.5 78 20 121/78 98 I/O 10/15/16 10/15/16 10/15/16 10/16/16 10/16/16 10/16/16 06:59 14:59 22:59 06:59 14:59 22:59 Intake Total 720 ml 960 ml 240 ml 120 ml Output Total 1 ml 1 ml Balance 720 ml 960 ml 239 ml 119 ml Intake Oral 720 ml 960 ml 240 ml 120 ml Output Urine Total 1 ml 1 ml # Voids 2 3 4 3 # Bowel Movements 0 Objective Remarks GENERAL: Well-developed, well-nourished, in no acute distress. alert and orientated HEENT: Head is normocephalic without any lesions or masses noted right facial droop. NECK: Supple without any masses. Trachea midline no deviation. CARDIAC: Regular rhythm, regular rate. S1/S2 are heard. No murmurs gallops or rubs. LUNGS: Clear to auscultation bilaterally. No wheeze, rhonchi or rales. No use of accessory muscles on inspiration or expiration. ABDOMEN: Soft, nontender. Nondistended. Bowel sounds heard in all 4 quadrants. No organomegaly or masses. Negative rebound, negative guarding EXTREMITIES: No edema, pulses are equal bilaterally. No cyanosis or clubbing NEUROLOGY: Mood and affect appear appropriate. Dense right hemiparesis which appears to be improving in the lower extremity. Patient is able to move her right hand second third and fourth digit. 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 Venegas has evaluated the patient. The bleed has been stable on repeat head CT. No surgery needed. Speech therapy has been following the patient continue on soft diet with thin liquids Occupational therapy indicates OT at rehabilitation. Patient will need to continue occupational therapy until discharge Physical therapy indicating PT at rehabilitation. 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 No signs of central DI Urinalysis was performed which did not indicate any signs of infection Belladonna rectal suppository Hypertension, stable Norvasc 10 mg daily Vasotec, clonidine as needed Alcohol and cocaine abuse dependence patient previously counseled. Status post thiamine Tobacco abuse Counseled on cessation Chronic hepatitis C, chronic Patient with chronic transaminitis continue to follow monthly. liver ultrasound showed fatty infiltration Anxiety. Controlled Seroquel low-dose initiated on 05/27. Bowel regimen Justyna-Colace as needed DVT prophylaxis Sequential compression devices. Discharge Planning Patient has no funding for rehabilitation. Patient was denied SSI. technology project manager is following up with [facility] regarding status of applications. Occupational therapy recommends shower bench, 3-1 bedside commode for discharge. PT recommends right AFO. 08/16, case management spoke with patient's mother who states that she'll assist in discharge planning. Awaiting decision from the [facility] in [place] 10/14/16 1047 CONTINUE TO FOLLOW FOR ABILITY TO PLACE RETIREMENT. NEEDING MEDICAID APPROVED FOR THIS IT IS STILL PENDING WILL CONT TO FOLLOW PATIENT HAS NO SAFE D/C WITHOUT PLACEMENT GISELA LONG PRACTICE PROFESSIONAL/CM/CHARGE Jaycob Rebolledo Oct 16, 2016 10:16
[2016-10-16 20:00] VITALS: BP 107/74; PULSE 83; RESP 20; TEMP 96.8; O2SAT 95
[2016-10-16] MEDS: BELLADONNA ALKALOIDS/OPIUM 60 MG SUPP RECTAL SCH (20:26)
[2016-10-16] MEDS: QUEtiapine FUMARATE 25 MG TAB PO SCH (20:26)
[2016-10-17 08:00] VITALS: BP 119/84; PULSE 71; RESP 20; TEMP 96.6; O2SAT 98
--- NOTE | 2016-10-17 09:28 | HHI.PR ---
Subjective Remarks Patient seen and examined today. Patient denies any new complaints. No change in clinical status. Objective Vitals Vital Signs Date Time Temp Pulse Resp B/P Pulse Ox O2 Delivery O2 Flow Rate FiO2 10/17/16 08:00 96.6 71 20 119/84 98 10/16/16 20:00 96.8 83 20 107/74 95 I/O 10/16/16 10/16/16 10/16/16 10/17/16 10/17/16 10/17/16 07:00 15:00 23:00 07:00 15:00 23:00 Intake Total 120 ml 480 ml 480 ml Output Total 1 ml 600 ml Balance 119 ml 480 ml 480 ml -600 ml Intake Oral 120 ml 480 ml 480 ml Output Urine Total 1 ml 600 ml # Voids 3 2 2 # Bowel Movements 0 0 0 Objective Remarks GENERAL: Well-developed, well-nourished, in no acute distress. alert and orientated HEENT: Head is normocephalic without any lesions or masses noted right facial droop. NECK: Supple without any masses. Trachea midline no deviation. CARDIAC: Regular rhythm, regular rate. S1/S2 are heard. No murmurs gallops or rubs. LUNGS: Clear to auscultation bilaterally. No wheeze, rhonchi or rales. No use of accessory muscles on inspiration or expiration. ABDOMEN: Soft, nontender. Nondistended. Bowel sounds heard in all 4 quadrants. No organomegaly or masses. Negative rebound, negative guarding EXTREMITIES: No edema, pulses are equal bilaterally. No cyanosis or clubbing NEUROLOGY: Mood and affect appear appropriate. Dense right hemiparesis which appears to be improving in the lower extremity. Patient is able to move her right hand second third and fourth digit. 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 Venegas has evaluated the patient. The bleed has been stable on repeat head CT. No surgery needed. Speech therapy has been following the patient continue on soft diet with thin liquids Occupational therapy indicates OT at rehabilitation. Patient will need to continue occupational therapy until discharge Physical therapy indicating PT at rehabilitation. 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 No signs of central DI Urinalysis was performed which did not indicate any signs of infection Belladonna rectal suppository Hypertension, stable Norvasc 10 mg daily Vasotec, clonidine as needed Alcohol and cocaine abuse dependence patient previously counseled. Status post thiamine Tobacco abuse Counseled on cessation Chronic hepatitis C, chronic Patient with chronic transaminitis continue to follow monthly. liver ultrasound showed fatty infiltration Anxiety. Controlled Seroquel low-dose initiated on 05/27. Bowel regimen Justyna-Colace as needed DVT prophylaxis Sequential compression devices. Discharge Planning Patient has no funding for rehabilitation. Patient was denied SSI. manager title is following up with [facility] regarding status of applications. Occupational therapy recommends shower bench, 3-1 bedside commode for discharge. PT recommends right AFO. 08/16, case management spoke with patient's mother who states that she'll assist in discharge planning. 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 NEEDING MEDICAID APPROVED FOR THIS IT IS STILL PENDING WILL CONT TO FOLLOW PATIENT HAS NO SAFE D/C WITHOUT PLACEMENT GISELA LONG WARP DOFFER/CM/CHARGE Jaycob Rebolledo Oct 17, 2016 09:28
[2016-10-17] MEDS: GABAPENTIN 100 MG CAP PO SCH ×3 (10:00→17:43)
[2016-10-17] MEDS: POTASSIUM CHLORIDE 10 MEQ CONTROLLED RELEASE TAB PO SCH (10:00)
[2016-10-17] MEDS: FAMOTIDINE 20 MG TAB PO SCH ×2 (10:00→20:27)
[2016-10-17 20:00] VITALS: BP 117/75; PULSE 80; RESP 20; TEMP 98; O2SAT 96
[2016-10-17] MEDS: BELLADONNA ALKALOIDS/OPIUM 60 MG SUPP RECTAL SCH (20:27)
[2016-10-17] MEDS: QUEtiapine FUMARATE 25 MG TAB PO SCH (20:27)
[2016-10-18 08:00] VITALS: BP 121/82; PULSE 76; RESP 18; TEMP 96.2; O2SAT 99
[2016-10-18] MEDS: GABAPENTIN 100 MG CAP PO SCH ×3 (08:42→17:45)
[2016-10-18] MEDS: FAMOTIDINE 20 MG TAB PO SCH ×2 (08:42→21:45)
[2016-10-18] MEDS: POTASSIUM CHLORIDE 10 MEQ CONTROLLED RELEASE TAB PO SCH (08:42)
--- NOTE | 2016-10-18 15:02 | HHI.PR ---
Subjective Remarks Patient seen and examined today with Dr. Bernal. Patient denies any new complaints. No change in clinical status. Objective Vitals Vital Signs Date Time Temp Pulse Resp B/P Pulse Ox O2 Delivery O2 Flow Rate FiO2 10/18/16 08:00 96.2 76 18 121/82 99 10/17/16 20:00 98.0 80 20 117/75 96 I/O 10/17/16 10/17/16 10/17/16 10/18/16 10/18/16 10/18/16 06:59 14:59 22:59 06:59 14:59 22:59 Intake Total 1380 ml 450 ml 120 ml Output Total 600 ml Balance -600 ml 1380 ml 450 ml 120 ml Intake Oral 1380 ml 450 ml 120 ml Output Urine Total 600 ml # Voids 4 4 3 # Bowel Movements 2 0 Objective Remarks GENERAL: Well-developed, well-nourished, in no acute distress. alert and orientated HEENT: Head is normocephalic without any lesions or masses noted right facial droop. NECK: Supple without any masses. Trachea midline no deviation. CARDIAC: Regular rhythm, regular rate. S1/S2 are heard. No murmurs gallops or rubs. LUNGS: Clear to auscultation bilaterally. No wheeze, rhonchi or rales. No use of accessory muscles on inspiration or expiration. ABDOMEN: Soft, nontender. Nondistended. Bowel sounds heard in all 4 quadrants. No organomegaly or masses. Negative rebound, negative guarding EXTREMITIES: No edema, pulses are equal bilaterally. No cyanosis or clubbing NEUROLOGY: Mood and affect appear appropriate. Dense right hemiparesis which appears to be improving in the lower extremity. Patient is able to move her right hand second third and fourth digit. 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 Venegas has evaluated the patient. The bleed has been stable on repeat head CT. No surgery needed. Speech therapy has been following the patient continue on soft diet with thin liquids Occupational therapy indicates OT at rehabilitation. Patient will need to continue occupational therapy until discharge Physical therapy indicating PT at rehabilitation. 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 No signs of central DI Urinalysis was performed which did not indicate any signs of infection Belladonna rectal suppository Hypertension, stable Norvasc 10 mg daily Vasotec, clonidine as needed Alcohol and cocaine abuse dependence patient previously counseled. Status post thiamine Tobacco abuse Counseled on cessation Chronic hepatitis C, chronic Patient with chronic transaminitis continue to follow monthly. liver ultrasound showed fatty infiltration Anxiety. Controlled Seroquel low-dose initiated on 05/27. Bowel regimen Justyna-Colace as needed DVT prophylaxis Sequential compression devices. Discharge Planning Patient has no funding for rehabilitation. Patient was denied SSI. accounts payable manager is following up with [facility] regarding status of applications. Occupational therapy recommends shower bench, 3-1 bedside commode for discharge. PT recommends right AFO. 08/16, case management spoke with patient's mother who states that she'll assist in discharge planning. Awaiting decision from the [facility] in [place] 10/14/16 1047 CONTINUE TO FOLLOW FOR ABILITY TO PLACE [facility]. NEEDING MEDICAID APPROVED FOR THIS IT IS STILL PENDING WILL CONT TO FOLLOW PATIENT HAS NO SAFE D/C WITHOUT PLACEMENT GISELA LONG TECHNOLOGY APPLICATIONS CONSULTANT/CM/CHARGE Jaycob Rebolledo Oct 18, 2016 15:02
[2016-10-18 20:00] VITALS: BP 126/87; PULSE 96; RESP 20; TEMP 98.8; O2SAT 96
[2016-10-18] MEDS: QUEtiapine FUMARATE 25 MG TAB PO SCH (21:45)
[2016-10-18] MEDS: BELLADONNA ALKALOIDS/OPIUM 60 MG SUPP RECTAL SCH (21:45)
[2016-10-18] MEDS: ORPHENADRINE CITRATE 100 MG SUSTAINED RELEASE TAB PO PRN (21:45)
[2016-10-19 08:00] VITALS: BP 127/78; PULSE 77; RESP 16; TEMP 98.5; O2SAT 95
[2016-10-19] MEDS: GABAPENTIN 100 MG CAP PO SCH ×3 (08:30→17:29)
[2016-10-19] MEDS: POTASSIUM CHLORIDE 10 MEQ CONTROLLED RELEASE TAB PO SCH (08:30)
[2016-10-19] MEDS: FAMOTIDINE 20 MG TAB PO SCH ×2 (08:31→20:41)
--- NOTE | 2016-10-19 10:36 | HHI.PR ---
Subjective Remarks Patient seen with Dr. Bernal. No acute complaints. No change in clinical status. Objective Vitals Vital Signs Date Time Temp Pulse Resp B/P Pulse Ox O2 Delivery O2 Flow Rate FiO2 10/19/16 08:00 98.5 77 16 127/78 95 10/18/16 20:00 98.8 96 20 126/87 96 I/O 10/18/16 10/18/16 10/18/16 10/19/16 10/19/16 10/19/16 07:00 15:00 23:00 07:00 15:00 23:00 Intake Total 600 ml 240 ml Balance 600 ml 240 ml Intake Oral 600 ml 240 ml # Voids 5 1 2 # Bowel Movements 0 0 Objective Remarks GENERAL: Thin, chronically ill appearing patient in no apparent distress. CARDIOVASCULAR: Regular rate and rhythm. RESPIRATORY: Limited anterior exam. No accessory muscle use, CTAB. GASTROINTESTINAL: Abdomen soft, nontender, non-distended. NEUROLOGICAL: Awake and alert. Immobile R arm. PSYCHIATRIC: Insight and judgment normal. 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 (2) Hemiparesis affecting right side as late effect of cerebrovascular accident (CVA) ICD Code: I69.351 Status: Chronic (3) Shortness of breath ICD Code: R06.02 Status: Resolved (4) Fever ICD Code: R50.9 Status: Resolved (5) Abdominal pain ICD Code: R10.9 Status: Resolved (6) Hypertensive emergency ICD Code: I10 Status: Resolved (7) Metabolic acidosis ICD Code: E87.2 Status: Resolved (8) UTI (urinary tract infection) ICD Code: N39.0 Status: Resolved (9) Vaginal discharge ICD Code: N89.8 Status: Resolved (10) Increased urinary frequency ICD Code: R35.0 Status: Resolved Assessment and Plan Left basal ganglia bleed with 4mm MLS with dense Right hemiparesis, stable secondary to cocaine and uncontrolled hypertension Neurosurgery, Dr. Venegas has evaluated the patient. The bleed has been stable on repeat head CT. No surgery needed. Speech therapy indicated soft diet with thin liquids Occupational therapy indicates OT at rehabilitation. Patient will need to continue occupational therapy until discharge Physical therapy indicating PT at rehabilitation. We'll need to continue physical therapy, continue right AFO. Norflex for muscle spasms Abdominal pain: Resolved Leukocytosis resolved CT scan did not indicate any abnormality SOB: Resolved. Chest x-ray without acute abnormality. 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 No signs of central DI Urinalysis was performed which did not indicate any signs of infection Continue Belladonna rectal suppository Hypertension: Controlled Norvasc 10 mg daily Vasotec, clonidine as needed Monitor BP Hypokalemia: Resolved. Patient is on potassium replacement Monitor BMP as needed Alcohol and cocaine abuse dependence patient previously counseled. Status post thiamine Tobacco abuse Counseled on cessation Chronic hepatitis C, chronic Patient with chronic transaminitis continue to follow monthly. 09/29 AST and ALT stable from prior. Liver ultrasound showed fatty infiltration Anxiety: Controlled Seroquel low-dose initiated on 05/27. Bowel regimen Justyna-Colace as needed DVT prophylaxis Sequential compression devices. Discharge Planning Needs Medicaid for placement, pending. Occupational therapy recommends shower bench, 3-1 bedside commode for discharge. PT recommends right AFO. Elisabeth Church Oct 19, 2016 10:36
[2016-10-19 20:00] VITALS: BP 128/79; PULSE 85; RESP 20; TEMP 98.8; O2SAT 96
[2016-10-19] MEDS: BELLADONNA ALKALOIDS/OPIUM 60 MG SUPP RECTAL SCH (20:41)
[2016-10-19] MEDS: ORPHENADRINE CITRATE 100 MG SUSTAINED RELEASE TAB PO PRN (20:41)
[2016-10-19] MEDS: QUEtiapine FUMARATE 25 MG TAB PO SCH (20:41)
[2016-10-20 08:00] VITALS: BP 112/83; PULSE 80; RESP 18; TEMP 97.5; O2SAT 96
[2016-10-20] MEDS: GABAPENTIN 100 MG CAP PO SCH ×3 (08:20→17:16)
[2016-10-20] MEDS: FAMOTIDINE 20 MG TAB PO SCH ×2 (08:20→20:57)
[2016-10-20] MEDS: POTASSIUM CHLORIDE 10 MEQ CONTROLLED RELEASE TAB PO SCH (08:21)
--- NOTE | 2016-10-20 11:52 | HHI.PR ---
Subjective Remarks No acute complaints. No change in clinical status. Objective Vitals Vital Signs Date Time Temp Pulse Resp B/P Pulse Ox O2 Delivery O2 Flow Rate FiO2 10/20/16 08:00 97.5 80 18 112/83 96 10/19/16 20:00 98.8 85 20 128/79 96 I/O 10/19/16 10/19/16 10/19/16 10/20/16 10/20/16 10/20/16 06:59 14:59 22:59 06:59 14:59 22:59 Intake Total 720 ml 360 ml 120 ml Output Total 400 ml Balance 720 ml -40 ml 120 ml Intake Oral 720 ml 360 ml 120 ml Output Urine Total 400 ml # Voids 2 3 2 1 # Bowel Movements 0 0 0 Objective Remarks GENERAL: Thin, chronically ill appearing patient in no apparent distress. CARDIOVASCULAR: Regular rate and rhythm. RESPIRATORY: Limited anterior exam. No accessory muscle use, CTAB. GASTROINTESTINAL: Abdomen soft, nontender, non-distended. NEUROLOGICAL: Awake and alert. PSYCHIATRIC: Insight and judgment normal. 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 (2) Hemiparesis affecting right side as late effect of cerebrovascular accident (CVA) ICD Code: I69.351 Status: Chronic (3) Shortness of breath ICD Code: R06.02 Status: Resolved (4) Fever ICD Code: R50.9 Status: Resolved (5) Abdominal pain ICD Code: R10.9 Status: Resolved (6) Hypertensive emergency ICD Code: I10 Status: Resolved (7) Metabolic acidosis ICD Code: E87.2 Status: Resolved (8) UTI (urinary tract infection) ICD Code: N39.0 Status: Resolved (9) Vaginal discharge ICD Code: N89.8 Status: Resolved (10) Increased urinary frequency ICD Code: R35.0 Status: Resolved Assessment and Plan Left basal ganglia bleed with 4mm MLS with dense Right hemiparesis, stable secondary to cocaine and uncontrolled hypertension Neurosurgery, Dr. Venegas has evaluated the patient. The bleed has been stable on repeat head CT. No surgery needed. Speech therapy indicated soft diet with thin liquids Occupational therapy indicates OT at rehabilitation. Patient will need to continue occupational therapy until discharge Physical therapy indicating PT at rehabilitation. We'll need to continue physical therapy, continue right AFO. Norflex for muscle spasms Abdominal pain: Resolved Leukocytosis resolved CT scan did not indicate any abnormality SOB: Resolved. Chest x-ray without acute abnormality. 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 No signs of central DI Urinalysis was performed which did not indicate any signs of infection Continue Belladonna rectal suppository Hypertension: Controlled Norvasc 10 mg daily Vasotec, clonidine as needed Monitor BP Hypokalemia: Resolved. Patient is on potassium replacement Monitor BMP as needed Alcohol and cocaine abuse dependence patient previously counseled. Status post thiamine Tobacco abuse Counseled on cessation Chronic hepatitis C, chronic Patient with chronic transaminitis continue to follow monthly. 09/29 AST and ALT stable from prior. Liver ultrasound showed fatty infiltration Anxiety: Controlled Seroquel low-dose initiated on 05/27. Bowel regimen Justyna-Colace as needed DVT prophylaxis Sequential compression devices. Discharge Planning Needs Medicaid for placement, pending. Occupational therapy recommends shower bench, 3-1 bedside commode for discharge. PT recommends right AFO. Elisabeth Church Oct 20, 2016 11:51
[2016-10-20 20:00] VITALS: BP 123/90; PULSE 85; RESP 18; TEMP 97.7; O2SAT 96
[2016-10-20] MEDS: ORPHENADRINE CITRATE 100 MG SUSTAINED RELEASE TAB PO PRN (20:56)
[2016-10-20] MEDS: QUEtiapine FUMARATE 25 MG TAB PO SCH (20:56)
[2016-10-20] MEDS: BELLADONNA ALKALOIDS/OPIUM 60 MG SUPP RECTAL SCH (20:57)
[2016-10-21 08:00] VITALS: BP 114/79; PULSE 81; RESP 16; TEMP 98; O2SAT 95
[2016-10-21] MEDS: GABAPENTIN 100 MG CAP PO SCH ×3 (08:56→17:12)
[2016-10-21] MEDS: POTASSIUM CHLORIDE 10 MEQ CONTROLLED RELEASE TAB PO SCH (08:56)
[2016-10-21] MEDS: FAMOTIDINE 20 MG TAB PO SCH ×2 (08:56→21:05)
--- NOTE | 2016-10-21 11:18 | HHI.PR ---
Subjective Remarks No acute complaints. No change in clinical status. Objective Vitals Vital Signs Date Time Temp Pulse Resp B/P Pulse Ox O2 Delivery O2 Flow Rate FiO2 10/21/16 08:00 98.0 81 16 114/79 95 10/20/16 20:00 97.7 85 18 123/90 96 I/O 10/20/16 10/20/16 10/20/16 10/21/16 10/21/16 10/21/16 06:59 14:59 22:59 06:59 14:59 22:59 Intake Total 120 ml 600 ml Output Total 650 ml Balance 120 ml -50 ml Intake Oral 120 ml 600 ml Output Urine Total 650 ml # Voids 2 1 6 2 # Bowel Movements 0 Objective Remarks GENERAL: Thin, chronically ill appearing patient in no apparent distress sleeping when I enter the room. CARDIOVASCULAR: Regular rate and rhythm. RESPIRATORY: Limited anterior exam. No accessory muscle use, CTAB. GASTROINTESTINAL: Abdomen soft, nontender, non-distended. NEUROLOGICAL: Awake and alert. PSYCHIATRIC: Insight and judgment normal. 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 (2) Hemiparesis affecting right side as late effect of cerebrovascular accident (CVA) ICD Code: I69.351 Status: Chronic (3) Shortness of breath ICD Code: R06.02 Status: Resolved (4) Fever ICD Code: R50.9 Status: Resolved (5) Abdominal pain ICD Code: R10.9 Status: Resolved (6) Hypertensive emergency ICD Code: I10 Status: Resolved (7) Metabolic acidosis ICD Code: E87.2 Status: Resolved (8) UTI (urinary tract infection) ICD Code: N39.0 Status: Resolved (9) Vaginal discharge ICD Code: N89.8 Status: Resolved (10) Increased urinary frequency ICD Code: R35.0 Status: Resolved Assessment and Plan Left basal ganglia bleed with 4mm MLS with dense Right hemiparesis, stable secondary to cocaine and uncontrolled hypertension Neurosurgery, Dr. Venegas has evaluated the patient. The bleed has been stable on repeat head CT. No surgery needed. Speech therapy indicated soft diet with thin liquids Occupational therapy indicates OT at rehabilitation. Patient will need to continue occupational therapy until discharge Physical therapy indicating PT at rehabilitation. We'll need to continue physical therapy, continue right AFO. Norflex for muscle spasms Abdominal pain: Resolved Leukocytosis resolved CT scan did not indicate any abnormality SOB: Resolved. Chest x-ray without acute abnormality. 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 No signs of central DI Urinalysis was performed which did not indicate any signs of infection Continue Belladonna rectal suppository Hypertension: Controlled Norvasc 10 mg daily Vasotec, clonidine as needed Monitor BP Hypokalemia: Resolved. Patient is on potassium replacement Monitor BMP as needed Alcohol and cocaine abuse dependence patient previously counseled. Status post thiamine Tobacco abuse Counseled on cessation Chronic hepatitis C, chronic Patient with chronic transaminitis continue to follow monthly. 09/29 AST and ALT stable from prior. Liver ultrasound showed fatty infiltration Anxiety: Controlled Seroquel low-dose initiated on 05/27. Bowel regimen Justyna-Colace as needed DVT prophylaxis Sequential compression devices. Discharge Planning Needs Medicaid for placement, pending. Occupational therapy recommends shower bench, 3-1 bedside commode for discharge. PT recommends right AFO. Elisabeth Church Oct 21, 2016 11:18
[2016-10-21 20:00] VITALS: BP 120/81; PULSE 91; RESP 16; TEMP 98.7; O2SAT 96
[2016-10-21] MEDS: BELLADONNA ALKALOIDS/OPIUM 60 MG SUPP RECTAL SCH (21:05)
[2016-10-21] MEDS: QUEtiapine FUMARATE 25 MG TAB PO SCH (21:05)
[2016-10-22 08:00] VITALS: BP 126/82; PULSE 78; RESP 16; TEMP 98.5; O2SAT 93
[2016-10-22] MEDS: FAMOTIDINE 20 MG TAB PO SCH ×2 (08:23→21:00)
[2016-10-22] MEDS: POTASSIUM CHLORIDE 10 MEQ CONTROLLED RELEASE TAB PO SCH (08:23)
[2016-10-22] MEDS: GABAPENTIN 100 MG CAP PO SCH ×3 (08:23→17:34)
--- NOTE | 2016-10-22 18:10 | HHI.PR ---
Subjective Remarks No acute complaints. No change in clinical status. Objective Vitals Vital Signs Date Time Temp Pulse Resp B/P Pulse Ox O2 Delivery O2 Flow Rate FiO2 10/22/16 08:00 98.5 78 16 126/82 93 10/21/16 20:00 98.7 91 16 120/81 96 I/O 10/21/16 10/21/16 10/21/16 10/22/16 10/22/16 10/22/16 06:59 14:59 22:59 06:59 14:59 22:59 Intake Total 1380 ml 440 ml 480 ml Balance 1380 ml 440 ml 480 ml Intake Oral 1380 ml 440 ml 480 ml # Voids 2 3 2 1 3 # Bowel Movements 0 0 Objective Remarks GENERAL: Thin patient in no apparent distress. CARDIOVASCULAR: Regular rate and rhythm. RESPIRATORY: Limited anterior exam. No accessory muscle use, CTAB. GASTROINTESTINAL: Abdomen soft, nontender, non-distended. NEUROLOGICAL: Awake and alert. PSYCHIATRIC: Insight and judgment normal. 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 (2) Hemiparesis affecting right side as late effect of cerebrovascular accident (CVA) ICD Code: I69.351 Status: Chronic (3) Shortness of breath ICD Code: R06.02 Status: Resolved (4) Fever ICD Code: R50.9 Status: Resolved (5) Abdominal pain ICD Code: R10.9 Status: Resolved (6) Hypertensive emergency ICD Code: I10 Status: Resolved (7) Metabolic acidosis ICD Code: E87.2 Status: Resolved (8) UTI (urinary tract infection) ICD Code: N39.0 Status: Resolved (9) Vaginal discharge ICD Code: N89.8 Status: Resolved (10) Increased urinary frequency ICD Code: R35.0 Status: Resolved Assessment and Plan Left basal ganglia bleed with 4mm MLS with dense Right hemiparesis, stable secondary to cocaine and uncontrolled hypertension Neurosurgery, Dr. Venegas has evaluated the patient. The bleed has been stable on repeat head CT. No surgery needed. Speech therapy indicated soft diet with thin liquids Occupational therapy indicates OT at rehabilitation. Patient will need to continue occupational therapy until discharge Physical therapy indicating PT at rehabilitation. We'll need to continue physical therapy, continue right AFO. Norflex for muscle spasms Abdominal pain: Resolved Leukocytosis resolved CT scan did not indicate any abnormality SOB: Resolved. Chest x-ray without acute abnormality. 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 No signs of central DI Urinalysis was performed which did not indicate any signs of infection Continue Belladonna rectal suppository Hypertension: Controlled Norvasc 10 mg daily Vasotec, clonidine as needed Monitor BP Hypokalemia: Resolved. Patient is on potassium replacement Monitor BMP as needed Alcohol and cocaine abuse dependence patient previously counseled. Status post thiamine Tobacco abuse Counseled on cessation Chronic hepatitis C, chronic Patient with chronic transaminitis continue to follow monthly. 09/29 AST and ALT stable from prior. Liver ultrasound showed fatty infiltration Anxiety: Controlled Seroquel low-dose initiated on 05/27. Bowel regimen Justyna-Colace as needed DVT prophylaxis Sequential compression devices. Discharge Planning Needs Medicaid for placement, pending. Occupational therapy recommends shower bench, 3-1 bedside commode for discharge. PT recommends right AFO. Elisabeth Church Oct 22, 2016 18:10
[2016-10-22 20:26] VITALS: BP 117/80; PULSE 87; RESP 20; TEMP 98.1; O2SAT 97
[2016-10-22] MEDS: QUEtiapine FUMARATE 25 MG TAB PO SCH (21:00)
[2016-10-22] MEDS: BELLADONNA ALKALOIDS/OPIUM 60 MG SUPP RECTAL SCH (21:00)
[2016-10-23 08:00] VITALS: BP 120/84; PULSE 79; RESP 20; TEMP 98.4; O2SAT 96
[2016-10-23] MEDS: FAMOTIDINE 20 MG TAB PO SCH ×2 (09:10→21:28)
[2016-10-23] MEDS: GABAPENTIN 100 MG CAP PO SCH ×3 (09:11→18:02)
[2016-10-23] MEDS: POTASSIUM CHLORIDE 10 MEQ CONTROLLED RELEASE TAB PO SCH (09:11)
--- NOTE | 2016-10-23 16:16 | HHI.PR ---
Subjective Remarks No acute complaints. No change in clinical status. Objective Vitals Vital Signs Date Time Temp Pulse Resp B/P Pulse Ox O2 Delivery O2 Flow Rate FiO2 10/23/16 08:00 98.4 79 20 120/84 96 10/22/16 20:26 98.1 87 20 117/80 97 I/O 10/22/16 10/22/16 10/22/16 10/23/16 10/23/16 10/23/16 07:00 15:00 23:00 07:00 15:00 23:00 Intake Total 480 ml 240 ml Output Total 240 ml Balance 480 ml 240 ml -240 ml Intake Oral 480 ml 240 ml Output Urine Total 240 ml # Voids 1 3 1 2 # Bowel Movements 0 Objective Remarks GENERAL: Thin patient in no apparent distress. CARDIOVASCULAR: Regular rate and rhythm. RESPIRATORY: No accessory muscle use. CTAB. GASTROINTESTINAL: Abdomen soft, nontender, non-distended. NEUROLOGICAL: Awake and alert. PSYCHIATRIC: Insight and judgment normal. 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 (2) Hemiparesis affecting right side as late effect of cerebrovascular accident (CVA) ICD Code: I69.351 Status: Chronic (3) Shortness of breath ICD Code: R06.02 Status: Resolved (4) Fever ICD Code: R50.9 Status: Resolved (5) Abdominal pain ICD Code: R10.9 Status: Resolved (6) Hypertensive emergency ICD Code: I10 Status: Resolved (7) Metabolic acidosis ICD Code: E87.2 Status: Resolved (8) UTI (urinary tract infection) ICD Code: N39.0 Status: Resolved (9) Vaginal discharge ICD Code: N89.8 Status: Resolved (10) Increased urinary frequency ICD Code: R35.0 Status: Resolved Assessment and Plan Left basal ganglia bleed with 4mm MLS with dense Right hemiparesis, stable secondary to cocaine and uncontrolled hypertension Neurosurgery, Dr. Venegas has evaluated the patient. The bleed has been stable on repeat head CT. No surgery needed. Speech therapy indicated soft diet with thin liquids Occupational therapy indicates OT at rehabilitation. Patient will need to continue occupational therapy until discharge Physical therapy indicating PT at rehabilitation. We'll need to continue physical therapy, continue right AFO. Norflex for muscle spasms Abdominal pain: Resolved Leukocytosis resolved CT scan did not indicate any abnormality SOB: Resolved. Chest x-ray without acute abnormality. 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 No signs of central DI Urinalysis was performed which did not indicate any signs of infection Continue Belladonna rectal suppository Hypertension: Controlled Norvasc 10 mg daily Vasotec, clonidine as needed Monitor BP Hypokalemia: Resolved. Patient is on potassium replacement Monitor BMP as needed Alcohol and cocaine abuse dependence patient previously counseled. Status post thiamine Tobacco abuse Counseled on cessation Chronic hepatitis C, chronic Patient with chronic transaminitis continue to follow monthly. 09/29 AST and ALT stable from prior. Liver ultrasound showed fatty infiltration Anxiety: Controlled Seroquel low-dose initiated on 05/27. Bowel regimen: No BM in 6 days. Patient has not been using prn Justyna-Colace. Add magnesium hydroxide as needed. Nursing order to encourage use. DVT prophylaxis Sequential compression devices. Discharge Planning Needs Medicaid for placement, pending. Occupational therapy recommends shower bench, 3-1 bedside commode for discharge. PT recommends right AFO. Elisabeth Church Oct 23, 2016 16:15
[2016-10-23 20:00] VITALS: BP 114/84; PULSE 62; RESP 18; TEMP 97.7; O2SAT 98
[2016-10-23] MEDS: QUEtiapine FUMARATE 25 MG TAB PO SCH (21:28)
[2016-10-23] MEDS: BELLADONNA ALKALOIDS/OPIUM 60 MG SUPP RECTAL SCH (21:28)
[2016-10-24 08:00] VITALS: BP 118/68; PULSE 78; RESP 16; TEMP 98.1; O2SAT 95
[2016-10-24] MEDS: GABAPENTIN 100 MG CAP PO SCH ×3 (09:11→16:38)
[2016-10-24] MEDS: FAMOTIDINE 20 MG TAB PO SCH ×2 (09:12→21:08)
[2016-10-24] MEDS: POTASSIUM CHLORIDE 10 MEQ CONTROLLED RELEASE TAB PO SCH (09:12)
--- NOTE | 2016-10-24 11:26 | HHI.PR ---
Subjective Remarks No acute complaints. No change in clinical status. Objective Vitals Vital Signs Date Time Temp Pulse Resp B/P Pulse Ox O2 Delivery O2 Flow Rate FiO2 10/24/16 08:00 98.1 78 16 118/68 95 10/23/16 20:00 97.7 62 18 114/84 98 I/O 10/23/16 10/23/16 10/23/16 10/24/16 10/24/16 10/24/16 07:00 15:00 23:00 07:00 15:00 23:00 Intake Total 360 ml Output Total 240 ml 240 ml Balance -240 ml 120 ml Intake Oral 360 ml Output Urine Total 240 ml 240 ml # Voids 2 2 1 Objective Remarks GENERAL: Thin patient in no apparent distress. CARDIOVASCULAR: Regular rate and rhythm. RESPIRATORY: RR normal. GASTROINTESTINAL: Abdomen soft, nontender, non-distended. NEUROLOGICAL: Awake and alert. PSYCHIATRIC: Insight and judgment normal. 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 (2) Hemiparesis affecting right side as late effect of cerebrovascular accident (CVA) ICD Code: I69.351 Status: Chronic (3) Shortness of breath ICD Code: R06.02 Status: Resolved (4) Fever ICD Code: R50.9 Status: Resolved (5) Abdominal pain ICD Code: R10.9 Status: Resolved (6) Hypertensive emergency ICD Code: I10 Status: Resolved (7) Metabolic acidosis ICD Code: E87.2 Status: Resolved (8) UTI (urinary tract infection) ICD Code: N39.0 Status: Resolved (9) Vaginal discharge ICD Code: N89.8 Status: Resolved (10) Increased urinary frequency ICD Code: R35.0 Status: Resolved Assessment and Plan Left basal ganglia bleed with 4mm MLS with dense Right hemiparesis, stable secondary to cocaine and uncontrolled hypertension Neurosurgery, Dr. Venegas has evaluated the patient. The bleed has been stable on repeat head CT. No surgery needed. Speech therapy indicated soft diet with thin liquids Occupational therapy indicates OT at rehabilitation. Patient will need to continue occupational therapy until discharge Physical therapy indicating PT at rehabilitation. We'll need to continue physical therapy, continue right AFO. Norflex for muscle spasms Abdominal pain: Resolved Leukocytosis resolved CT scan did not indicate any abnormality SOB: Resolved. Chest x-ray without acute abnormality. 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 No signs of central DI Urinalysis was performed which did not indicate any signs of infection Continue Belladonna rectal suppository Hypertension: Controlled Norvasc 10 mg daily Vasotec, clonidine as needed Monitor BP Hypokalemia: Resolved. Patient is on potassium replacement Monitor BMP as needed Alcohol and cocaine abuse dependence patient previously counseled. Status post thiamine Tobacco abuse Counseled on cessation Chronic hepatitis C, chronic Patient with chronic transaminitis continue to follow monthly. 09/29 AST and ALT stable from prior. Liver ultrasound showed fatty infiltration Anxiety: Controlled Seroquel low-dose initiated on 05/27. Bowel regimen: No BM in 6 days. Patient has not been using prn Justyna-Colace. Add magnesium hydroxide as needed. Nursing order to encourage use. DVT prophylaxis Sequential compression devices. Discharge Planning Needs Medicaid for placement, pending. Occupational therapy recommends shower bench, 3-1 bedside commode for discharge. PT recommends right AFO. Elisabeth hCurch Oct 24, 2016 11:26
[2016-10-24 20:00] VITALS: BP 116/75; PULSE 81; RESP 18; TEMP 97.6; O2SAT 96
[2016-10-24] MEDS: QUEtiapine FUMARATE 25 MG TAB PO SCH (21:08)
[2016-10-24] MEDS: BELLADONNA ALKALOIDS/OPIUM 60 MG SUPP RECTAL SCH (21:08)
[2016-10-24] MEDS: ORPHENADRINE CITRATE 100 MG SUSTAINED RELEASE TAB PO PRN (23:49)
[2016-10-25 08:00] VITALS: BP 122/81; PULSE 76; RESP 16; TEMP 98.5; O2SAT 95
--- NOTE | 2016-10-25 08:40 | HHI.PR ---
Subjective Remarks No acute complaints. No change in clinical status. Objective Vitals Vital Signs Date Time Temp Pulse Resp B/P Pulse Ox O2 Delivery O2 Flow Rate FiO2 10/25/16 08:00 98.5 76 16 122/81 95 10/24/16 20:00 97.6 81 18 116/75 96 I/O 10/24/16 10/24/16 10/24/16 10/25/16 10/25/16 10/25/16 06:59 14:59 22:59 06:59 14:59 22:59 Intake Total 720 ml Output Total 300 ml 700 ml Balance 420 ml -700 ml Intake Oral 720 ml Output Urine Total 300 ml 700 ml # Voids 2 1 # Bowel Movements 1 Objective Remarks GENERAL: Thin patient in no apparent distress. CARDIOVASCULAR: Regular rate and rhythm. RESPIRATORY: Limited anterior exam. RR normal. CTAB. GASTROINTESTINAL: Abdomen soft, nontender, non-distended. MUSCULOSKELETAL: 2+ right distal radial pulse. NEUROLOGICAL: Awake and alert. Immobile right arm. Patient is able to lift both legs off the bed. PSYCHIATRIC: Insight and judgment normal. 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 (2) Hemiparesis affecting right side as late effect of cerebrovascular accident (CVA) ICD Code: I69.351 Status: Chronic (3) Shortness of breath ICD Code: R06.02 Status: Resolved (4) Fever ICD Code: R50.9 Status: Resolved (5) Abdominal pain ICD Code: R10.9 Status: Resolved (6) Hypertensive emergency ICD Code: I10 Status: Resolved (7) Metabolic acidosis ICD Code: E87.2 Status: Resolved (8) UTI (urinary tract infection) ICD Code: N39.0 Status: Resolved (9) Vaginal discharge ICD Code: N89.8 Status: Resolved (10) Increased urinary frequency ICD Code: R35.0 Status: Resolved Assessment and Plan Left basal ganglia bleed with 4mm MLS with dense Right hemiparesis, stable secondary to cocaine and uncontrolled hypertension Neurosurgery, Dr. Venegas has evaluated the patient. The bleed has been stable on repeat head CT. No surgery needed. Speech therapy indicated soft diet with thin liquids Occupational therapy indicates OT at rehabilitation. Patient will need to continue occupational therapy until discharge Physical therapy indicating PT at rehabilitation. We'll need to continue physical therapy, continue right AFO. Norflex for muscle spasms Abdominal pain: Resolved Leukocytosis resolved CT scan did not indicate any abnormality SOB: Resolved. Chest x-ray without acute abnormality. 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 No signs of central DI Urinalysis was performed which did not indicate any signs of infection Continue Belladonna rectal suppository Hypertension: Controlled Norvasc 10 mg daily Vasotec, clonidine as needed Monitor BP Hypokalemia: Resolved. Patient is on potassium replacement Monitor BMP as needed Alcohol and cocaine abuse dependence patient previously counseled. Status post thiamine Tobacco abuse Counseled on cessation Chronic hepatitis C, chronic Patient with chronic transaminitis continue to follow monthly. 09/29 AST and ALT stable from prior. Liver ultrasound showed fatty infiltration Anxiety: Controlled Seroquel low-dose initiated on 05/27. Bowel regimen: No BM in 6 days. Patient has not been using prn Justyna-Colace. Add magnesium hydroxide as needed. Nursing order to encourage use. DVT prophylaxis Sequential compression devices. Discharge Planning Needs Medicaid for placement, pending. Occupational therapy recommends shower bench, 3-1 bedside commode for discharge. PT recommends right AFO. Elisabeth Church Oct 25, 2016 08:40
[2016-10-25] MEDS: GABAPENTIN 100 MG CAP PO SCH ×3 (09:26→17:10)
[2016-10-25] MEDS: FAMOTIDINE 20 MG TAB PO SCH ×2 (09:27→20:39)
[2016-10-25] MEDS: POTASSIUM CHLORIDE 10 MEQ CONTROLLED RELEASE TAB PO SCH (09:27)
[2016-10-25 20:00] VITALS: BP 117/78; PULSE 81; RESP 18; TEMP 96.2; O2SAT 95
[2016-10-25] MEDS: ORPHENADRINE CITRATE 100 MG SUSTAINED RELEASE TAB PO PRN (20:39)
[2016-10-25] MEDS: BELLADONNA ALKALOIDS/OPIUM 60 MG SUPP RECTAL SCH (20:39)
[2016-10-25] MEDS: QUEtiapine FUMARATE 25 MG TAB PO SCH (20:39)
[2016-10-26 08:00] VITALS: BP 123/85; PULSE 78; RESP 18; TEMP 96; O2SAT 93
--- NOTE | 2016-10-26 08:58 | HHI.PR ---
Subjective Remarks Patient seen and examined today. Patient denies any new complaints. No change in clinical status. Objective Vitals Vital Signs Date Time Temp Pulse Resp B/P Pulse Ox O2 Delivery O2 Flow Rate FiO2 10/26/16 08:00 96.0 78 18 123/85 93 10/25/16 20:00 96.2 81 18 117/78 95 I/O 10/25/16 10/25/16 10/25/16 10/26/16 10/26/16 10/26/16 07:00 15:00 23:00 07:00 15:00 23:00 Intake Total 480 ml Output Total 700 ml 350 ml Balance -700 ml 480 ml -350 ml Intake Oral 480 ml Output Urine Total 700 ml 350 ml # Voids 2 1 1 # Bowel Movements 0 Objective Remarks GENERAL: Well-developed, well-nourished, in no acute distress. alert and orientated HEENT: Head is normocephalic without any lesions or masses noted right facial droop. NECK: Trachea midline no deviation. CARDIAC: Regular rhythm, regular rate. S1/S2 are heard. No murmurs gallops or rubs. LUNGS: Clear to auscultation bilaterally. No wheeze, rhonchi or rales. No use of accessory muscles on inspiration or expiration. ABDOMEN: Soft, nontender. Nondistended. Bowel sounds heard in all 4 quadrants. No organomegaly or masses. Negative rebound, negative guarding EXTREMITIES: No edema, pulses are equal bilaterally. No cyanosis or clubbing NEUROLOGY: Mood and affect appear appropriate. Dense right hemiparesis which appears to be improving in the lower extremity. Patient is able to move her right hand second third and fourth digit. 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 Venegas has evaluated the patient. The bleed has been stable on repeat head CT. No surgery needed. Speech therapy has been following the patient continue on soft diet with thin liquids Occupational therapy indicates OT at rehabilitation. Patient will need to continue occupational therapy until discharge Physical therapy indicating PT at rehabilitation. 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 No signs of central DI Urinalysis was performed which did not indicate any signs of infection Belladonna rectal suppository Hypertension, stable Norvasc 10 mg daily Vasotec, clonidine as needed Alcohol and cocaine abuse dependence patient previously counseled. Status post thiamine Tobacco abuse Counseled on cessation Chronic hepatitis C, chronic Patient with chronic transaminitis continue to follow monthly. liver ultrasound showed fatty infiltration Anxiety. Controlled Seroquel low-dose initiated on 05/27. Bowel regimen Justyna-Colace as needed DVT prophylaxis Sequential compression devices. Discharge Planning Patient has no funding for rehabilitation. Patient was denied SSI. senior planning manager is following up with [facility] regarding status of applications. Occupational therapy recommends shower bench, 3-1 bedside commode for discharge. PT recommends right AFO. 08/16, case management spoke with patient's mother who states that she'll assist in discharge planning. Awaiting decision from the [facility] in [place] 10/14/16 1047 CONTINUE TO FOLLOW FOR ABILITY TO PLACE RESIDENTIAL. NEEDING MEDICAID APPROVED FOR THIS IT IS STILL PENDING WILL CONT TO FOLLOW PATIENT HAS NO SAFE D/C WITHOUT PLACEMENT GISELA LONG DIRECTOR OF PUBLIC RELATIONS/CM/CHARGE Jaycob Rebolledo Oct 26, 2016 08:58
[2016-10-26] MEDS: POTASSIUM CHLORIDE 10 MEQ CONTROLLED RELEASE TAB PO SCH (09:13)
[2016-10-26] MEDS: FAMOTIDINE 20 MG TAB PO SCH ×2 (09:13→20:05)
[2016-10-26] MEDS: GABAPENTIN 100 MG CAP PO SCH ×3 (09:14→17:43)
[2016-10-26 20:00] VITALS: BP 123/81; PULSE 90; RESP 20; TEMP 97.6; O2SAT 95
[2016-10-26] MEDS: BELLADONNA ALKALOIDS/OPIUM 60 MG SUPP RECTAL SCH (20:04)
[2016-10-26] MEDS: QUEtiapine FUMARATE 25 MG TAB PO SCH (20:05)
[2016-10-27 08:00] VITALS: BP 110/72; PULSE 74; RESP 18; TEMP 97.2; O2SAT 94
[2016-10-27] MEDS: FAMOTIDINE 20 MG TAB PO SCH ×2 (08:46→20:43)
[2016-10-27] MEDS: POTASSIUM CHLORIDE 10 MEQ CONTROLLED RELEASE TAB PO SCH (08:46)
[2016-10-27] MEDS: GABAPENTIN 100 MG CAP PO SCH ×3 (08:46→17:46)
--- NOTE | 2016-10-27 10:05 | HHI.PR ---
Subjective Remarks Patient seen and examined today. Patient has any new complaints. No change in clinical status. Objective Vitals Vital Signs Date Time Temp Pulse Resp B/P Pulse Ox O2 Delivery O2 Flow Rate FiO2 10/27/16 08:00 97.2 74 18 110/72 94 10/26/16 20:00 97.6 90 20 123/81 95 I/O 10/26/16 10/26/16 10/26/16 10/27/16 10/27/16 10/27/16 07:00 15:00 23:00 07:00 15:00 23:00 Intake Total 1200 ml 240 ml 840 ml Balance 1200 ml 240 ml 840 ml Intake Oral 1200 ml 240 ml 840 ml # Voids 1 3 4 2 # Bowel Movements 0 3 0 Objective Remarks GENERAL: Well-developed, well-nourished, in no acute distress. alert and orientated HEENT: Head is normocephalic without any lesions or masses noted right facial droop. NECK: Trachea midline no deviation. CARDIAC: Regular rhythm, regular rate. S1/S2 are heard. No murmurs gallops or rubs. LUNGS: Clear to auscultation bilaterally. No wheeze, rhonchi or rales. No use of accessory muscles on inspiration or expiration. ABDOMEN: Soft, nontender. Nondistended. Bowel sounds heard in all 4 quadrants. No organomegaly or masses. Negative rebound, negative guarding EXTREMITIES: No edema, pulses are equal bilaterally. No cyanosis or clubbing NEUROLOGY: Mood and affect appear appropriate. Dense right hemiparesis which appears to be improving in the lower extremity. Patient is able to move her right hand second third and fourth digit. 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 Venegas has evaluated the patient. The bleed has been stable on repeat head CT. No surgery needed. Speech therapy has been following the patient continue on soft diet with thin liquids Occupational therapy indicates OT at rehabilitation. Patient will need to continue occupational therapy until discharge Physical therapy indicating PT at rehabilitation. 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 No signs of central DI Urinalysis was performed which did not indicate any signs of infection Belladonna rectal suppository Hypertension, stable Norvasc 10 mg daily Vasotec, clonidine as needed Alcohol and cocaine abuse dependence patient previously counseled. Status post thiamine Tobacco abuse Counseled on cessation Chronic hepatitis C, chronic Patient with chronic transaminitis continue to follow monthly. liver ultrasound showed fatty infiltration Anxiety. Controlled Seroquel low-dose initiated on 05/27. Bowel regimen Justyna-Colace as needed DVT prophylaxis Sequential compression devices. Discharge Planning Patient has no funding for rehabilitation. Patient was denied SSI. litigation services manager is following up with [facility] regarding status of applications. Occupational therapy recommends shower bench, 3-1 bedside commode for discharge. PT recommends right AFO. 08/16, case management spoke with patient's mother who states that she'll assist in discharge planning. 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 NEEDING MEDICAID APPROVED FOR THIS IT IS STILL PENDING WILL CONT TO FOLLOW PATIENT HAS NO SAFE D/C WITHOUT PLACEMENT GISELA LONG FIREBRICK AND REFRACTORY TILE REPAIRER/CM/CHARGE Jaycob Rebolledo Oct 27, 2016 10:04
[2016-10-27 20:00] VITALS: BP 122/75; PULSE 84; RESP 18; TEMP 97.6; O2SAT 97
[2016-10-27] MEDS: QUEtiapine FUMARATE 25 MG TAB PO SCH (20:43)
[2016-10-27] MEDS: BELLADONNA ALKALOIDS/OPIUM 60 MG SUPP RECTAL SCH (20:44)
[2016-10-28 07:30] VITALS: BP 120/80; PULSE 78; RESP 16; TEMP 97.4; O2SAT 95
[2016-10-28] MEDS: FAMOTIDINE 20 MG TAB PO SCH ×2 (08:34→21:36)
[2016-10-28] MEDS: POTASSIUM CHLORIDE 10 MEQ CONTROLLED RELEASE TAB PO SCH (08:34)
[2016-10-28] MEDS: GABAPENTIN 100 MG CAP PO SCH ×3 (08:34→17:24)
--- NOTE | 2016-10-28 10:15 | HHI.PR ---
Subjective Remarks Patient seen and examined today. Patient denies any new complaints. No change in clinical status. Objective Vitals Vital Signs Date Time Temp Pulse Resp B/P Pulse Ox O2 Delivery O2 Flow Rate FiO2 10/28/16 07:30 97.4 78 16 120/80 95 10/27/16 20:00 97.6 84 18 122/75 97 I/O 10/27/16 10/27/16 10/27/16 10/28/16 10/28/16 10/28/16 07:00 15:00 23:00 07:00 15:00 23:00 Intake Total 840 ml 480 ml 620 ml 420 ml Balance 840 ml 480 ml 620 ml 420 ml Intake Oral 840 ml 480 ml 620 ml 420 ml # Voids 2 2 2 2 # Bowel Movements 0 0 0 0 Objective Remarks GENERAL: Well-developed, well-nourished, in no acute distress. alert and orientated HEENT: Head is normocephalic without any lesions or masses noted right facial droop. NECK: Trachea midline no deviation. CARDIAC: Regular rhythm, regular rate. S1/S2 are heard. No murmurs gallops or rubs. LUNGS: Clear to auscultation bilaterally. No wheeze, rhonchi or rales. No use of accessory muscles on inspiration or expiration. ABDOMEN: Soft, nontender. Nondistended. Bowel sounds heard in all 4 quadrants. No organomegaly or masses. Negative rebound, negative guarding EXTREMITIES: No edema, pulses are equal bilaterally. No cyanosis or clubbing NEUROLOGY: Mood and affect appear appropriate. Dense right hemiparesis which appears to be improving in the lower extremity. Patient is able to move her right hand second third and fourth digit. 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 Venegas has evaluated the patient. The bleed has been stable on repeat head CT. No surgery needed. Speech therapy has been following the patient continue on soft diet with thin liquids Occupational therapy indicates OT at rehabilitation. Patient will need to continue occupational therapy until discharge Physical therapy indicating PT at rehabilitation. 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 No signs of central DI Urinalysis was performed which did not indicate any signs of infection Belladonna rectal suppository Hypertension, stable Norvasc 10 mg daily Vasotec, clonidine as needed Alcohol and cocaine abuse dependence patient previously counseled. Status post thiamine Tobacco abuse Counseled on cessation Chronic hepatitis C, chronic Patient with chronic transaminitis continue to follow monthly. liver ultrasound showed fatty infiltration Anxiety. Controlled Seroquel low-dose initiated on 05/27. Bowel regimen Justyna-Colace as needed DVT prophylaxis Sequential compression devices. Discharge Planning Patient has no funding for rehabilitation. Patient was denied SSI. team manager is following up with [facility] regarding status of applications. Occupational therapy recommends shower bench, 3-1 bedside commode for discharge. PT recommends right AFO. 08/16, case management spoke with patient's mother who states that she'll assist in discharge planning. 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 NEEDING MEDICAID APPROVED FOR THIS IT IS STILL PENDING WILL CONT TO FOLLOW PATIENT HAS NO SAFE D/C WITHOUT PLACEMENT GISELA LONG MANGANESE WHEELER/CM/CHARGE Jaycob Rebolledo Oct 28, 2016 10:15
[2016-10-28 20:00] VITALS: BP 110/78; PULSE 84; RESP 18; TEMP 99.1; O2SAT 96
[2016-10-28] MEDS: BELLADONNA ALKALOIDS/OPIUM 60 MG SUPP RECTAL SCH (21:37)
[2016-10-28] MEDS: QUEtiapine FUMARATE 25 MG TAB PO SCH (21:37)
[2016-10-29 08:00] VITALS: BP 108/74; PULSE 85; RESP 21; TEMP 98.4; O2SAT 93
[2016-10-29] MEDS: FAMOTIDINE 20 MG TAB PO SCH ×2 (08:49→20:13)
[2016-10-29] MEDS: POTASSIUM CHLORIDE 10 MEQ CONTROLLED RELEASE TAB PO SCH (08:49)
[2016-10-29] MEDS: GABAPENTIN 100 MG CAP PO SCH ×3 (08:49→17:03)
--- NOTE | 2016-10-29 09:51 | HHI.PR ---
Subjective Remarks Patient seen and examined today. Patient denies any new complaints. No change in clinical status. Objective Vitals Vital Signs Date Time Temp Pulse Resp B/P Pulse Ox O2 Delivery O2 Flow Rate FiO2 10/29/16 08:00 98.4 85 21 108/74 93 10/28/16 20:00 99.1 84 18 110/78 96 I/O 10/28/16 10/28/16 10/28/16 10/29/16 10/29/16 10/29/16 07:00 15:00 23:00 07:00 15:00 23:00 Intake Total 420 ml 750 ml 680 ml 320 ml Balance 420 ml 750 ml 680 ml 320 ml Intake Oral 420 ml 750 ml 680 ml 320 ml IV Total 0 ml 0 ml # Voids 2 3 3 4 # Bowel Movements 0 1 0 0 Objective Remarks GENERAL: Well-developed, well-nourished, in no acute distress. alert and orientated HEENT: Head is normocephalic without any lesions or masses noted right facial droop. NECK: Trachea midline no deviation. CARDIAC: Regular rhythm, regular rate. S1/S2 are heard. No murmurs gallops or rubs. LUNGS: Clear to auscultation bilaterally. No wheeze, rhonchi or rales. No use of accessory muscles on inspiration or expiration. ABDOMEN: Soft, nontender. Nondistended. Bowel sounds heard in all 4 quadrants. No organomegaly or masses. Negative rebound, negative guarding EXTREMITIES: No edema, pulses are equal bilaterally. No cyanosis or clubbing NEUROLOGY: Mood and affect appear appropriate. Dense right hemiparesis which appears to be improving in the lower extremity. Patient is able to move her right hand second third and fourth digit. 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 Venegas has evaluated the patient. The bleed has been stable on repeat head CT. No surgery needed. Speech therapy has been following the patient continue on soft diet with thin liquids Occupational therapy indicates OT at rehabilitation. Patient will need to continue occupational therapy until discharge Physical therapy indicating PT at rehabilitation. 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 No signs of central DI Urinalysis was performed which did not indicate any signs of infection Belladonna rectal suppository Hypertension, stable Norvasc 10 mg daily Vasotec, clonidine as needed Alcohol and cocaine abuse dependence patient previously counseled. Status post thiamine Tobacco abuse Counseled on cessation Chronic hepatitis C, chronic Patient with chronic transaminitis continue to follow monthly. liver ultrasound showed fatty infiltration Anxiety. Controlled Seroquel low-dose initiated on 05/27. Bowel regimen Justyna-Colace as needed DVT prophylaxis Sequential compression devices. Discharge Planning Patient has no funding for rehabilitation. Patient was denied SSI. hair or beauty salon manager is following up with [facility] regarding status of applications. Occupational therapy recommends shower bench, 3-1 bedside commode for discharge. PT recommends right AFO. 08/16, case management spoke with patient's mother who states that she'll assist in discharge planning. Awaiting decision from the [facility] in [place] 10/14/16 1047 CONTINUE TO FOLLOW FOR ABILITY TO PLACE [facility]. NEEDING MEDICAID APPROVED FOR THIS IT IS STILL PENDING WILL CONT TO FOLLOW PATIENT HAS NO SAFE D/C WITHOUT PLACEMENT GISELA LONG STRING STUDIES DIRECTOR/CM/CHARGE Jaycob Rebolledo Oct 29, 2016 09:51
[2016-10-29 20:00] VITALS: BP 112/77; PULSE 86; RESP 22; TEMP 98.9; O2SAT 96
[2016-10-29] MEDS: QUEtiapine FUMARATE 25 MG TAB PO SCH (20:13)
[2016-10-29] MEDS: BELLADONNA ALKALOIDS/OPIUM 60 MG SUPP RECTAL SCH (20:13)
[2016-10-30 08:00] VITALS: BP 106/82; PULSE 88; RESP 16; TEMP 96.7; O2SAT 93
[2016-10-30] MEDS: GABAPENTIN 100 MG CAP PO SCH ×3 (09:10→17:33)
[2016-10-30] MEDS: FAMOTIDINE 20 MG TAB PO SCH ×2 (09:10→20:43)
[2016-10-30] MEDS: POTASSIUM CHLORIDE 10 MEQ CONTROLLED RELEASE TAB PO SCH (09:10)
--- NOTE | 2016-10-30 09:49 | HHI.PR ---
Subjective Remarks Patient seen and examined today. Patient denies any new complaints. No change in clinical status. Objective Vitals Vital Signs Date Time Temp Pulse Resp B/P Pulse Ox O2 Delivery O2 Flow Rate FiO2 10/30/16 08:00 96.7 88 16 106/82 93 10/29/16 20:00 98.9 86 22 112/77 96 I/O 10/29/16 10/29/16 10/29/16 10/30/16 10/30/16 10/30/16 07:00 15:00 23:00 07:00 15:00 23:00 Intake Total 320 ml 0 ml 450 ml Output Total 1300 ml Balance 320 ml 0 ml -850 ml Intake Oral 320 ml 450 ml IV Total 0 ml 0 ml Output Urine Total 1300 ml # Voids 4 2 # Bowel Movements 0 0 Objective Remarks GENERAL: Well-developed, well-nourished, in no acute distress. alert and orientated HEENT: Head is normocephalic without any lesions or masses noted right facial droop. NECK: Trachea midline no deviation. CARDIAC: Regular rhythm, regular rate. S1/S2 are heard. No murmurs gallops or rubs. LUNGS: Clear to auscultation bilaterally. No wheeze, rhonchi or rales. No use of accessory muscles on inspiration or expiration. ABDOMEN: Soft, nontender. Nondistended. Bowel sounds heard in all 4 quadrants. No organomegaly or masses. Negative rebound, negative guarding EXTREMITIES: No edema, pulses are equal bilaterally. No cyanosis or clubbing NEUROLOGY: Mood and affect appear appropriate. Dense right hemiparesis which appears to be improving in the lower extremity. Patient is able to move her right hand second third and fourth digit. 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 Venegas has evaluated the patient. The bleed has been stable on repeat head CT. No surgery needed. Speech therapy has been following the patient continue on soft diet with thin liquids Occupational therapy indicates OT at rehabilitation. Patient will need to continue occupational therapy until discharge Physical therapy indicating PT at rehabilitation. 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 No signs of central DI Urinalysis was performed which did not indicate any signs of infection Belladonna rectal suppository Hypertension, stable Norvasc 10 mg daily Vasotec, clonidine as needed Alcohol and cocaine abuse dependence patient previously counseled. Status post thiamine Tobacco abuse Counseled on cessation Chronic hepatitis C, chronic Patient with chronic transaminitis continue to follow monthly. liver ultrasound showed fatty infiltration Anxiety. Controlled Seroquel low-dose initiated on 05/27. Bowel regimen Justyna-Colace as needed DVT prophylaxis Sequential compression devices. Discharge Planning Patient has no funding for rehabilitation. Patient was denied SSI. fitness centre manager is following up with [facility] regarding status of applications. Occupational therapy recommends shower bench, 3-1 bedside commode for discharge. PT recommends right AFO. 08/16, case management spoke with patient's mother who states that she'll assist in discharge planning. 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 NEEDING MEDICAID APPROVED FOR THIS IT IS STILL PENDING WILL CONT TO FOLLOW PATIENT HAS NO SAFE D/C WITHOUT PLACEMENT GISELA LONG PIECE DYE WORKER/CM/CHARGE Jaycob Rebolledo Oct 30, 2016 09:49
[2016-10-30] MEDS: BELLADONNA ALKALOIDS/OPIUM 60 MG SUPP RECTAL SCH (20:43)
[2016-10-30] MEDS: QUEtiapine FUMARATE 25 MG TAB PO SCH (20:43)
[2016-10-30 21:14] VITALS: BP 130/65; PULSE 80; RESP 22; TEMP 97.8; O2SAT 95
[2016-10-31 08:00] VITALS: BP 115/75; PULSE 79; RESP 18; TEMP 98.1; O2SAT 93
[2016-10-31] MEDS: FAMOTIDINE 20 MG TAB PO SCH ×2 (09:01→20:33)
[2016-10-31] MEDS: POTASSIUM CHLORIDE 10 MEQ CONTROLLED RELEASE TAB PO SCH (09:01)
[2016-10-31] MEDS: GABAPENTIN 100 MG CAP PO SCH ×3 (09:01→17:51)
--- NOTE | 2016-10-31 10:17 | HHI.PR ---
Subjective Remarks Patient seen and examined today. Patient denies any new complaints. No change in clinical status. Objective Vitals Vital Signs Date Time Temp Pulse Resp B/P Pulse Ox O2 Delivery O2 Flow Rate FiO2 10/31/16 08:00 98.1 79 18 115/75 93 10/30/16 21:14 97.8 80 22 130/65 95 I/O 10/30/16 10/30/16 10/30/16 10/31/16 10/31/16 10/31/16 07:00 15:00 23:00 07:00 15:00 23:00 Intake Total 450 ml 480 ml 200 ml Output Total 1300 ml 400 ml Balance -850 ml 480 ml -200 ml Intake Oral 450 ml 480 ml 200 ml Output Urine Total 1300 ml 400 ml # Voids 2 2 2 2 # Bowel Movements 0 0 Objective Remarks GENERAL: Well-developed, well-nourished, in no acute distress. alert and orientated HEENT: Head is normocephalic without any lesions or masses noted right facial droop. NECK: Trachea midline no deviation. CARDIAC: Regular rhythm, regular rate. S1/S2 are heard. No murmurs gallops or rubs. LUNGS: Clear to auscultation bilaterally. No wheeze, rhonchi or rales. No use of accessory muscles on inspiration or expiration. ABDOMEN: Soft, nontender. Nondistended. Bowel sounds heard in all 4 quadrants. No organomegaly or masses. Negative rebound, negative guarding EXTREMITIES: No edema, pulses are equal bilaterally. No cyanosis or clubbing NEUROLOGY: Mood and affect appear appropriate. Dense right hemiparesis which appears to be improving in the lower extremity. Patient is able to move her right hand second third and fourth digit. 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 Venegas has evaluated the patient. The bleed has been stable on repeat head CT. No surgery needed. Speech therapy has been following the patient continue on soft diet with thin liquids Occupational therapy indicates OT at rehabilitation. Patient will need to continue occupational therapy until discharge Physical therapy indicating PT at rehabilitation. 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 No signs of central DI Urinalysis was performed which did not indicate any signs of infection Belladonna rectal suppository Hypertension, stable Norvasc 10 mg daily Vasotec, clonidine as needed Alcohol and cocaine abuse dependence patient previously counseled. Status post thiamine Tobacco abuse Counseled on cessation Chronic hepatitis C, chronic Patient with chronic transaminitis continue to follow monthly. liver ultrasound showed fatty infiltration Anxiety. Controlled Seroquel low-dose initiated on 05/27. Bowel regimen Justyna-Colace as needed DVT prophylaxis Sequential compression devices. Discharge Planning Patient has no funding for rehabilitation. Patient was denied SSI. rehab department manager is following up with [facility] regarding status of applications. Occupational therapy recommends shower bench, 3-1 bedside commode for discharge. PT recommends right AFO. 08/16, case management spoke with patient's mother who states that she'll assist in discharge planning. Awaiting decision from the [facility] in [place] 10/14/16 1047 CONTINUE TO FOLLOW FOR ABILITY TO PLACE [facility]. NEEDING MEDICAID APPROVED FOR THIS IT IS STILL PENDING WILL CONT TO FOLLOW PATIENT HAS NO SAFE D/C WITHOUT PLACEMENT GISELA LONG LICENSING ANALYST/CM/CHARGE Jaycob Rebolledo Oct 31, 2016 10:17
[2016-10-31 20:00] VITALS: BP 108/77; PULSE 85; RESP 20; TEMP 97.9; O2SAT 97
[2016-10-31] MEDS: BELLADONNA ALKALOIDS/OPIUM 60 MG SUPP RECTAL SCH (20:33)
[2016-10-31] MEDS: QUEtiapine FUMARATE 25 MG TAB PO SCH (20:33)
[2016-11-01 08:00] VITALS: BP 128/85; PULSE 86; RESP 16; TEMP 99.3; O2SAT 94
[2016-11-01] MEDS: FAMOTIDINE 20 MG TAB PO SCH ×2 (08:25→21:52)
[2016-11-01] MEDS: GABAPENTIN 100 MG CAP PO SCH ×3 (08:25→16:45)
[2016-11-01] MEDS: POTASSIUM CHLORIDE 10 MEQ CONTROLLED RELEASE TAB PO SCH (08:26)
--- NOTE | 2016-11-01 11:54 | HHI.PR ---
Subjective Remarks Patient seen and examined today. Patient denies any new complaints. No change clinical status. Objective Vitals Vital Signs Date Time Temp Pulse Resp B/P Pulse Ox O2 Delivery O2 Flow Rate FiO2 11/01/16 08:00 99.3 86 16 128/85 94 10/31/16 20:00 97.9 85 20 108/77 97 I/O 10/31/16 10/31/16 10/31/16 11/01/16 11/01/16 11/01/16 07:00 15:00 23:00 07:00 15:00 23:00 Intake Total 720 ml 200 ml Output Total 700 ml 400 ml Balance 720 ml -500 ml -400 ml Intake Oral 720 ml 200 ml Output Urine Total 700 ml 400 ml # Voids 2 2 # Bowel Movements 0 Objective Remarks GENERAL: Well-developed, well-nourished, in no acute distress. alert and orientated HEENT: Head is normocephalic without any lesions or masses noted right facial droop. NECK: Trachea midline no deviation. CARDIAC: Regular rhythm, regular rate. S1/S2 are heard. No murmurs gallops or rubs. LUNGS: Clear to auscultation bilaterally. No wheeze, rhonchi or rales. No use of accessory muscles on inspiration or expiration. ABDOMEN: Soft, nontender. Nondistended. Bowel sounds heard in all 4 quadrants. No organomegaly or masses. Negative rebound, negative guarding EXTREMITIES: No edema, pulses are equal bilaterally. No cyanosis or clubbing NEUROLOGY: Mood and affect appear appropriate. Dense right hemiparesis which appears to be improving in the lower extremity. Patient is able to move her right hand second third and fourth digit. 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 Venegas has evaluated the patient. The bleed has been stable on repeat head CT. No surgery needed. Speech therapy has been following the patient continue on soft diet with thin liquids Occupational therapy indicates OT at rehabilitation. Patient will need to continue occupational therapy until discharge Physical therapy indicating PT at rehabilitation. 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 No signs of central DI Urinalysis was performed which did not indicate any signs of infection Belladonna rectal suppository Hypertension, stable Norvasc 10 mg daily Vasotec, clonidine as needed Alcohol and cocaine abuse dependence patient previously counseled. Status post thiamine Tobacco abuse Counseled on cessation Chronic hepatitis C, chronic Patient with chronic transaminitis continue to follow monthly. liver ultrasound showed fatty infiltration Anxiety. Controlled Seroquel low-dose initiated on 05/27. Bowel regimen Justyna-Colace as needed DVT prophylaxis Sequential compression devices. Discharge Planning Patient has no funding for rehabilitation. Patient was denied SSI. information systems project manager is following up with [facility] regarding status of applications. Occupational therapy recommends shower bench, 3-1 bedside commode for discharge. PT recommends right AFO. 08/16, case management spoke with patient's mother who states that she'll assist in discharge planning. Awaiting decision from the [facility] in [place] 10/14/16 1047 CONTINUE TO FOLLOW FOR ABILITY TO PLACE CUSTODIAL. NEEDING MEDICAID APPROVED FOR THIS IT IS STILL PENDING WILL CONT TO FOLLOW PATIENT HAS NO SAFE D/C WITHOUT PLACEMENT GISELA LONG FLIGHT ATTENDANT RAMP/CM/CHARGE Jaycob Rebolledo Nov 01, 2016 11:54
[2016-11-01 20:00] VITALS: BP 101/71; PULSE 82; RESP 20; TEMP 97.8; O2SAT 95
[2016-11-01] MEDS: QUEtiapine FUMARATE 25 MG TAB PO SCH (21:51)
[2016-11-01] MEDS: BELLADONNA ALKALOIDS/OPIUM 60 MG SUPP RECTAL SCH (21:52)
[2016-11-02 08:47] VITALS: BP 131/77; PULSE 84; RESP 19; TEMP 99.4; O2SAT 93
--- NOTE | 2016-11-02 09:07 | HHI.PR ---
Subjective Remarks No acute complaints. No change in clinical status. Objective Vitals Vital Signs Date Time Temp Pulse Resp B/P Pulse Ox O2 Delivery O2 Flow Rate FiO2 11/02/16 08:47 99.4 84 19 131/77 93 11/01/16 20:00 97.8 82 20 101/71 95 I/O 11/01/16 11/01/16 11/01/16 11/02/16 11/02/16 11/02/16 07:00 15:00 23:00 07:00 15:00 23:00 Intake Total 480 ml 480 ml 240 ml Output Total 400 ml Balance -400 ml 480 ml 480 ml 240 ml Intake Oral 480 ml 480 ml 240 ml Output Urine Total 400 ml # Voids 1 1 1 # Bowel Movements 0 0 Objective Remarks GENERAL: Thin patient in no apparent distress. CARDIOVASCULAR: Regular rate and rhythm. RESPIRATORY: Limited anterior exam. RR normal. CTAB. GASTROINTESTINAL: Abdomen soft, nontender, non-distended. NEUROLOGICAL: Awake and alert. PSYCHIATRIC: Insight and judgment normal. 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 (2) Hemiparesis affecting right side as late effect of cerebrovascular accident (CVA) ICD Code: I69.351 Status: Chronic (3) Shortness of breath ICD Code: R06.02 Status: Resolved (4) Fever ICD Code: R50.9 Status: Resolved (5) Abdominal pain ICD Code: R10.9 Status: Resolved (6) Hypertensive emergency ICD Code: I10 Status: Resolved (7) Metabolic acidosis ICD Code: E87.2 Status: Resolved (8) UTI (urinary tract infection) ICD Code: N39.0 Status: Resolved (9) Vaginal discharge ICD Code: N89.8 Status: Resolved (10) Increased urinary frequency ICD Code: R35.0 Status: Resolved Assessment and Plan 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 Venegas has evaluated the patient. The bleed has been stable on repeat head CT. No surgery needed. Speech therapy indicated soft diet with thin liquids Occupational therapy indicates OT at rehabilitation. Patient will need to continue occupational therapy until discharge Physical therapy indicating PT at rehabilitation. We'll need to continue physical therapy, continue right AFO. Norflex for muscle spasms Abdominal pain: Resolved Leukocytosis resolved CT scan did not indicate any abnormality SOB: Resolved. Chest x-ray without acute abnormality. 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 No signs of central DI Urinalysis was performed which did not indicate any signs of infection Continue Belladonna rectal suppository Hypertension: Controlled Norvasc 10 mg daily Vasotec, clonidine as needed Monitor BP Hypokalemia: Resolved. Patient is on potassium replacement Monitor BMP as needed Alcohol and cocaine abuse dependence patient previously counseled. Status post thiamine Tobacco abuse Counseled on cessation Chronic hepatitis C, chronic Patient with chronic transaminitis continue to follow monthly. 09/29 AST and ALT stable from prior. Liver ultrasound showed fatty infiltration Anxiety: Controlled Seroquel low-dose initiated on 05/27. Bowel regimen: Justyna-Colace, magnesium hydroxide as needed. DVT prophylaxis Sequential compression devices. Discharge Planning Needs Medicaid for placement, pending. Occupational therapy recommends shower bench, 3-1 bedside commode for discharge. PT recommends right AFO. Elisabeth Church Nov 02, 2016 09:07
[2016-11-02] MEDS: POTASSIUM CHLORIDE 10 MEQ CONTROLLED RELEASE TAB PO SCH (09:41)
[2016-11-02] MEDS: GABAPENTIN 100 MG CAP PO SCH ×3 (09:41→18:31)
[2016-11-02] MEDS: FAMOTIDINE 20 MG TAB PO SCH ×2 (09:41→21:31)
[2016-11-02 20:00] VITALS: BP 129/84; PULSE 86; RESP 18; TEMP 97.7; O2SAT 93
[2016-11-02] MEDS: BELLADONNA ALKALOIDS/OPIUM 60 MG SUPP RECTAL SCH (21:31)
[2016-11-02] MEDS: QUEtiapine FUMARATE 25 MG TAB PO SCH (21:31)
[2016-11-03 08:00] VITALS: BP 121/87; PULSE 81; RESP 19; TEMP 97.7; O2SAT 95
[2016-11-03] MEDS: POTASSIUM CHLORIDE 10 MEQ CONTROLLED RELEASE TAB PO SCH (09:06)
[2016-11-03] MEDS: GABAPENTIN 100 MG CAP PO SCH ×3 (09:06→17:59)
[2016-11-03] MEDS: FAMOTIDINE 20 MG TAB PO SCH ×2 (09:06→21:47)
--- NOTE | 2016-11-03 16:56 | HHI.PR ---
Subjective Remarks No acute complaints. No change in clinical status. Objective Vitals Vital Signs Date Time Temp Pulse Resp B/P Pulse Ox O2 Delivery O2 Flow Rate FiO2 11/03/16 08:00 97.7 81 19 121/87 95 11/02/16 20:00 97.7 86 18 129/84 93 I/O 11/02/16 11/02/16 11/02/16 11/03/16 11/03/16 11/03/16 07:00 15:00 23:00 07:00 15:00 23:00 Intake Total 240 ml 1245 ml 80 ml Balance 240 ml 1245 ml 80 ml Intake Oral 240 ml 820 ml 80 ml IV Total 425 ml # Voids 1 2 2 2 3 # Bowel Movements 0 2 1 0 Objective Remarks GENERAL: Thin patient in no apparent distress. CARDIOVASCULAR: Regular rate and rhythm. RESPIRATORY: Limited anterior exam. RR normal. CTAB. GASTROINTESTINAL: Abdomen soft, nontender, non-distended. NEUROLOGICAL: Awake and alert. PSYCHIATRIC: Insight and judgment normal. 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 (2) Hemiparesis affecting right side as late effect of cerebrovascular accident (CVA) ICD Code: I69.351 Status: Chronic (3) Shortness of breath ICD Code: R06.02 Status: Resolved (4) Fever ICD Code: R50.9 Status: Resolved (5) Abdominal pain ICD Code: R10.9 Status: Resolved (6) Hypertensive emergency ICD Code: I10 Status: Resolved (7) Metabolic acidosis ICD Code: E87.2 Status: Resolved (8) UTI (urinary tract infection) ICD Code: N39.0 Status: Resolved (9) Vaginal discharge ICD Code: N89.8 Status: Resolved (10) Increased urinary frequency ICD Code: R35.0 Status: Resolved Assessment and Plan 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 Venegas has evaluated the patient. The bleed has been stable on repeat head CT. No surgery needed. Speech therapy indicated soft diet with thin liquids Occupational therapy indicates OT at rehabilitation. Patient will need to continue occupational therapy until discharge Physical therapy indicating PT at rehabilitation. We'll need to continue physical therapy, continue right AFO. Norflex for muscle spasms Abdominal pain: Resolved Leukocytosis resolved CT scan did not indicate any abnormality SOB: Resolved. Chest x-ray without acute abnormality. 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 No signs of central DI Urinalysis was performed which did not indicate any signs of infection Continue Belladonna rectal suppository Hypertension: Controlled Norvasc 10 mg daily Vasotec, clonidine as needed Monitor BP Hypokalemia: Resolved. Patient is on potassium replacement Monitor BMP as needed Alcohol and cocaine abuse dependence patient previously counseled. Status post thiamine Tobacco abuse Counseled on cessation Chronic hepatitis C, chronic Patient with chronic transaminitis continue to follow monthly. 09/29 AST and ALT stable from prior. Liver ultrasound showed fatty infiltration Anxiety: Controlled Seroquel low-dose initiated on 05/27. Bowel regimen: Justyna-Colace, magnesium hydroxide as needed. DVT prophylaxis Sequential compression devices. Discharge Planning Needs Medicaid for placement, pending. Occupational therapy recommends shower bench, 3-1 bedside commode for discharge. PT recommends right AFO. Elisabeth Church Nov 03, 2016 16:56 Jessica Garcia MD Nov 03, 2016 17:31
[2016-11-03 20:00] VITALS: BP 111/81; PULSE 87; RESP 22; TEMP 97.9; O2SAT 96
[2016-11-03] MEDS: QUEtiapine FUMARATE 25 MG TAB PO SCH (21:47)
[2016-11-03] MEDS: BELLADONNA ALKALOIDS/OPIUM 60 MG SUPP RECTAL SCH (21:48)
[2016-11-04 08:00] VITALS: BP 118/88; PULSE 88; RESP 18; TEMP 98.7; O2SAT 93
--- NOTE | 2016-11-04 08:59 | HHI.PR ---
Subjective Remarks No acute complaints. No change in clinical status. Objective Vitals Vital Signs Date Time Temp Pulse Resp B/P Pulse Ox O2 Delivery O2 Flow Rate FiO2 11/03/16 20:00 97.9 87 22 111/81 96 I/O 11/03/16 11/03/16 11/03/16 11/04/16 11/04/16 11/04/16 07:00 15:00 23:00 07:00 15:00 23:00 Intake Total 80 ml 800 ml Balance 80 ml 800 ml Intake Oral 80 ml 800 ml # Voids 2 3 8 # Bowel Movements 1 0 0 Objective Remarks GENERAL: Thin patient in no apparent distress sitting in recliner. CARDIOVASCULAR: Regular rate and rhythm. RESPIRATORY: RR normal. CTAB. GASTROINTESTINAL: Abdomen soft, nontender, non-distended. NEUROLOGICAL: Awake and alert. PSYCHIATRIC: Insight and judgment normal. 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 (2) Hemiparesis affecting right side as late effect of cerebrovascular accident (CVA) ICD Code: I69.351 Status: Chronic (3) Shortness of breath ICD Code: R06.02 Status: Resolved (4) Fever ICD Code: R50.9 Status: Resolved (5) Abdominal pain ICD Code: R10.9 Status: Resolved (6) Hypertensive emergency ICD Code: I10 Status: Resolved (7) Metabolic acidosis ICD Code: E87.2 Status: Resolved (8) UTI (urinary tract infection) ICD Code: N39.0 Status: Resolved (9) Vaginal discharge ICD Code: N89.8 Status: Resolved (10) Increased urinary frequency ICD Code: R35.0 Status: Resolved Assessment and Plan 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 Venegas has evaluated the patient. The bleed has been stable on repeat head CT. No surgery needed. Speech therapy indicated soft diet with thin liquids Occupational therapy indicates OT at rehabilitation. Patient will need to continue occupational therapy until discharge Physical therapy indicating PT at rehabilitation. We'll need to continue physical therapy, continue right AFO. Norflex for muscle spasms Abdominal pain: Resolved Leukocytosis resolved CT scan did not indicate any abnormality SOB: Resolved. Chest x-ray without acute abnormality. 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 No signs of central DI Urinalysis was performed which did not indicate any signs of infection Continue Belladonna rectal suppository Hypertension: Controlled Norvasc 10 mg daily Vasotec, clonidine as needed Monitor BP Hypokalemia: Resolved. Patient is on potassium replacement Monitor BMP as needed Alcohol and cocaine abuse dependence patient previously counseled. Status post thiamine Tobacco abuse Counseled on cessation Chronic hepatitis C, chronic Patient with chronic transaminitis continue to follow monthly. 09/29 AST and ALT stable from prior. AM LFTs ordered. Liver ultrasound showed fatty infiltration Anxiety: Controlled Seroquel low-dose initiated on 05/27. Bowel regimen: Justyna-Colace, magnesium hydroxide as needed. DVT prophylaxis Sequential compression devices. Discharge Planning Needs Medicaid for placement, pending. Occupational therapy recommends shower bench, 3-1 bedside commode for discharge. PT recommends right AFO. Elisabeth Church Nov 04, 2016 08:59
[2016-11-04] MEDS: GABAPENTIN 100 MG CAP PO SCH ×3 (09:05→17:55)
[2016-11-04] MEDS: POTASSIUM CHLORIDE 10 MEQ CONTROLLED RELEASE TAB PO SCH (09:05)
[2016-11-04] MEDS: FAMOTIDINE 20 MG TAB PO SCH ×2 (09:05→21:12)
[2016-11-04 20:00] VITALS: BP 109/82; PULSE 84; RESP 20; TEMP 98.8; O2SAT 96
[2016-11-04] MEDS: QUEtiapine FUMARATE 25 MG TAB PO SCH (21:12)
[2016-11-04] MEDS: BELLADONNA ALKALOIDS/OPIUM 60 MG SUPP RECTAL SCH (21:12)
[2016-11-05 05:23] LABS: ALT (GPT) 177 U/L (10-53); AST (GOT) 82 U/L (15-37)
[2016-11-05 05:24] LABS: TOTAL BILIRUBIN ADULT 0.3 MG/DL (0.2-1.0)
[2016-11-05 05:26] LABS: ALKALINE PHOSPHATASE 85 U/L (45-117)
[2016-11-05 05:27] LABS: INDIRECT BILIRUBIN 0.2 MG/DL (0.0-0.8)
[2016-11-05 08:00] VITALS: BP 110/77; PULSE 79; RESP 18; TEMP 97.9; O2SAT 92
[2016-11-05] MEDS: FAMOTIDINE 20 MG TAB PO SCH ×2 (09:36→20:40)
[2016-11-05] MEDS: GABAPENTIN 100 MG CAP PO SCH ×3 (09:36→17:58)
[2016-11-05] MEDS: POTASSIUM CHLORIDE 10 MEQ CONTROLLED RELEASE TAB PO SCH (09:36)
--- NOTE | 2016-11-05 12:13 | HHI.PR ---
Subjective Remarks No acute complaints. No change in clinical status. Objective Vitals Vital Signs Date Time Temp Pulse Resp B/P Pulse Ox O2 Delivery O2 Flow Rate FiO2 11/05/16 08:00 97.9 79 18 110/77 92 11/04/16 20:00 98.8 84 20 109/82 96 I/O 11/04/16 11/04/16 11/04/16 11/05/16 11/05/16 11/05/16 07:00 15:00 23:00 07:00 15:00 23:00 Intake Total 800 ml 480 ml 480 ml Balance 800 ml 480 ml 480 ml Intake Oral 800 ml 480 ml 480 ml # Voids 8 3 3 # Bowel Movements 0 0 0 Objective Remarks GENERAL: Thin patient in no apparent distress. CARDIOVASCULAR: Regular rate and rhythm. RESPIRATORY: RR normal. CTAB. GASTROINTESTINAL: Abdomen soft, nontender, non-distended. NEUROLOGICAL: Awake and alert. PSYCHIATRIC: Insight and judgment normal. 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 (2) Hemiparesis affecting right side as late effect of cerebrovascular accident (CVA) ICD Code: I69.351 Status: Chronic (3) Shortness of breath ICD Code: R06.02 Status: Resolved (4) Fever ICD Code: R50.9 Status: Resolved (5) Abdominal pain ICD Code: R10.9 Status: Resolved (6) Hypertensive emergency ICD Code: I10 Status: Resolved (7) Metabolic acidosis ICD Code: E87.2 Status: Resolved (8) UTI (urinary tract infection) ICD Code: N39.0 Status: Resolved (9) Vaginal discharge ICD Code: N89.8 Status: Resolved (10) Increased urinary frequency ICD Code: R35.0 Status: Resolved Assessment and Plan 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 Venegas has evaluated the patient. The bleed has been stable on repeat head CT. No surgery needed. Speech therapy indicated soft diet with thin liquids Occupational therapy indicates OT at rehabilitation. Patient will need to continue occupational therapy until discharge Physical therapy indicating PT at rehabilitation. We'll need to continue physical therapy, continue right AFO. Norflex for muscle spasms Abdominal pain: Resolved Leukocytosis resolved CT scan did not indicate any abnormality SOB: Resolved. Chest x-ray without acute abnormality. 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 No signs of central DI Urinalysis was performed which did not indicate any signs of infection Continue Belladonna rectal suppository Hypertension: Controlled Norvasc 10 mg daily Vasotec, clonidine as needed Monitor BP Hypokalemia: Resolved. Patient is on potassium replacement Monitor BMP as needed Alcohol and cocaine abuse dependence patient previously counseled. Status post thiamine Tobacco abuse Counseled on cessation Chronic hepatitis C, chronic Patient with chronic transaminitis continue to follow monthly. 09/29 AST and ALT stable from prior. AM LFTs ordered. Liver ultrasound showed fatty infiltration Anxiety: Controlled Seroquel low-dose initiated on 05/27. Bowel regimen: Justyna-Colace, magnesium hydroxide as needed. DVT prophylaxis Sequential compression devices. Discharge Planning Needs Medicaid for placement, pending. [employer] waiting on return call from [facility]. Occupational therapy recommends shower bench, 3-1 bedside commode for discharge. PT recommends right AFO. Elisabeth Church Nov 05, 2016 12:13
[2016-11-05 20:00] VITALS: BP 110/75; PULSE 83; RESP 20; TEMP 96.4; O2SAT 96
[2016-11-05] MEDS: QUEtiapine FUMARATE 25 MG TAB PO SCH (20:40)
[2016-11-05] MEDS: BELLADONNA ALKALOIDS/OPIUM 60 MG SUPP RECTAL SCH (20:40)
[2016-11-06 08:00] VITALS: BP 139/86; PULSE 81; RESP 18; TEMP 97.5; O2SAT 92
[2016-11-06] MEDS: GABAPENTIN 100 MG CAP PO SCH ×3 (08:44→17:07)
[2016-11-06] MEDS: POTASSIUM CHLORIDE 10 MEQ CONTROLLED RELEASE TAB PO SCH (08:44)
[2016-11-06] MEDS: FAMOTIDINE 20 MG TAB PO SCH ×2 (08:44→20:56)
--- NOTE | 2016-11-06 09:57 | HHI.PR ---
Subjective Remarks No acute complaints. No change in clinical status. Objective Vitals Vital Signs Date Time Temp Pulse Resp B/P Pulse Ox O2 Delivery O2 Flow Rate FiO2 11/06/16 08:00 97.5 81 18 139/86 92 11/05/16 20:00 96.4 83 20 110/75 96 I/O 11/05/16 11/05/16 11/05/16 11/06/16 11/06/16 11/06/16 07:00 15:00 23:00 07:00 15:00 23:00 Intake Total 480 ml 480 ml 480 ml 480 ml Output Total 5 ml Balance 480 ml 475 ml 480 ml 480 ml Intake Oral 480 ml 480 ml 480 ml 480 ml Output Urine Total 5 ml # Voids 3 2 4 # Bowel Movements 0 0 1 0 Objective Remarks GENERAL: Thin patient in no apparent distress. CARDIOVASCULAR: Regular rate and rhythm. RESPIRATORY: RR normal. CTAB. GASTROINTESTINAL: Abdomen soft, nontender, non-distended. MUSCULOSKELETAL: Paralysis R arm. NEUROLOGICAL: Awake and alert. PSYCHIATRIC: Insight and judgment normal. 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 (2) Hemiparesis affecting right side as late effect of cerebrovascular accident (CVA) ICD Code: I69.351 Status: Chronic (3) Shortness of breath ICD Code: R06.02 Status: Resolved (4) Fever ICD Code: R50.9 Status: Resolved (5) Abdominal pain ICD Code: R10.9 Status: Resolved (6) Hypertensive emergency ICD Code: I10 Status: Resolved (7) Metabolic acidosis ICD Code: E87.2 Status: Resolved (8) UTI (urinary tract infection) ICD Code: N39.0 Status: Resolved (9) Vaginal discharge ICD Code: N89.8 Status: Resolved (10) Increased urinary frequency ICD Code: R35.0 Status: Resolved Assessment and Plan 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 Venegas has evaluated the patient. The bleed has been stable on repeat head CT. No surgery needed. Speech therapy indicated soft diet with thin liquids Occupational therapy indicates OT at rehabilitation. Patient will need to continue occupational therapy until discharge Physical therapy indicating PT at rehabilitation. We'll need to continue physical therapy, continue right AFO. Norflex for muscle spasms Abdominal pain: Resolved Leukocytosis resolved CT scan did not indicate any abnormality SOB: Resolved. Chest x-ray without acute abnormality. 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 No signs of central DI Urinalysis was performed which did not indicate any signs of infection Continue Belladonna rectal suppository Hypertension: Controlled Norvasc 10 mg daily Vasotec, clonidine as needed Monitor BP Hypokalemia: Resolved. Patient is on potassium replacement Monitor BMP as needed Alcohol and cocaine abuse dependence patient previously counseled. Status post thiamine Tobacco abuse Counseled on cessation Chronic hepatitis C, chronic Patient with chronic transaminitis continue to follow monthly. 11/05 AST and ALT improved from prior LFTs. Liver ultrasound showed fatty infiltration Anxiety: Controlled Seroquel low-dose initiated on 05/27. Bowel regimen: Justyna-Colace, magnesium hydroxide as needed. DVT prophylaxis Sequential compression devices. Discharge Planning Needs Medicaid for placement, pending. [employer] waiting on return call from [facility]. Occupational therapy recommends shower bench, 3-1 bedside commode for discharge. PT recommends right AFO. Elisabeth Church Nov 06, 2016 09:57
[2016-11-06] MEDS: BELLADONNA ALKALOIDS/OPIUM 60 MG SUPP RECTAL SCH (20:56)
[2016-11-06] MEDS: QUEtiapine FUMARATE 25 MG TAB PO SCH (20:56)
[2016-11-06 21:33] VITALS: BP 133/85; PULSE 71; RESP 18; TEMP 98.2; O2SAT 95
[2016-11-06] MEDS: ALUMINUM/MAGNESIUM/SIMETH 30 ML CUP PO PRN (22:31)
[2016-11-07 08:00] VITALS: BP 113/77; PULSE 86; RESP 20; TEMP 97.7; O2SAT 94
[2016-11-07] MEDS: GABAPENTIN 100 MG CAP PO SCH ×3 (08:41→17:15)
[2016-11-07] MEDS: POTASSIUM CHLORIDE 10 MEQ CONTROLLED RELEASE TAB PO SCH (08:41)
[2016-11-07] MEDS: FAMOTIDINE 20 MG TAB PO SCH ×2 (08:41→21:30)
--- NOTE | 2016-11-07 17:22 | HHI.PR ---
Subjective Remarks Patient seen today in follow-up for continued rehabilitation and follow-up of cognitive injury status post left basal bleed. No complaints Objective Vitals Vital Signs Date Time Temp Pulse Resp B/P Pulse Ox O2 Delivery O2 Flow Rate FiO2 11/07/16 08:00 97.7 86 20 113/77 94 11/06/16 21:33 98.2 71 18 133/85 95 I/O 11/06/16 11/06/16 11/06/16 11/07/16 11/07/16 11/07/16 07:00 15:00 23:00 07:00 15:00 23:00 Intake Total 480 ml 250 ml 600 ml Output Total 350 ml Balance 480 ml -100 ml 600 ml Intake Oral 480 ml 250 ml 600 ml Output Urine Total 350 ml # Voids 4 3 4 # Bowel Movements 0 0 0 Objective Remarks GENERAL: This is a well-nourished, well-developed patient, in no apparent distress. CARDIOVASCULAR: Regular rate and rhythm without murmurs, gallops, or rubs. RESPIRATORY: Clear to auscultation. Breath sounds equal bilaterally. No wheezes , rales, or rhonchi. GASTROINTESTINAL: Abdomen soft, non-tender, nondistended. Normal active bowel sounds MUSCULOSKELETAL: Extremities without clubbing, cyanosis, or edema. 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
[2016-11-07 21:22] VITALS: BP 139/87; PULSE 79; RESP 22; TEMP 98.3; O2SAT 96
[2016-11-07] MEDS: BELLADONNA ALKALOIDS/OPIUM 60 MG SUPP RECTAL SCH (21:31)
[2016-11-07] MEDS: QUEtiapine FUMARATE 25 MG TAB PO SCH (21:31)
[2016-11-08 08:00] VITALS: BP 128/86; PULSE 83; RESP 20; TEMP 97.3; O2SAT 94
[2016-11-08] MEDS: POTASSIUM CHLORIDE 10 MEQ CONTROLLED RELEASE TAB PO SCH (08:31)
[2016-11-08] MEDS: FAMOTIDINE 20 MG TAB PO SCH ×2 (08:32→21:42)
[2016-11-08] MEDS: GABAPENTIN 100 MG CAP PO SCH ×3 (08:32→17:22)
--- NOTE | 2016-11-08 10:08 | HHI.PR ---
Subjective Remarks No acute complaints. No change in clinical status. Objective Vitals Vital Signs Date Time Temp Pulse Resp B/P Pulse Ox O2 Delivery O2 Flow Rate FiO2 11/08/16 08:00 97.3 83 20 128/86 94 11/07/16 21:22 98.3 79 22 139/87 96 I/O 11/07/16 11/07/16 11/07/16 11/08/16 11/08/16 11/08/16 07:00 15:00 23:00 07:00 15:00 23:00 Intake Total 600 ml 100 ml Balance 600 ml 100 ml Intake Oral 600 ml 100 ml # Voids 4 2 1 # Bowel Movements 0 Objective Remarks GENERAL: Thin patient in no apparent distress. CARDIOVASCULAR: Regular rate and rhythm. RESPIRATORY: RR normal. CTAB. GASTROINTESTINAL: Normoactive bowel sounds. Abdomen soft, nontender, non- distended. NEUROLOGICAL: Awake and alert. PSYCHIATRIC: Insight and judgment normal. 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 (2) Hemiparesis affecting right side as late effect of cerebrovascular accident (CVA) ICD Code: I69.351 Status: Chronic (3) Shortness of breath ICD Code: R06.02 Status: Resolved (4) Fever ICD Code: R50.9 Status: Resolved (5) Abdominal pain ICD Code: R10.9 Status: Resolved (6) Hypertensive emergency ICD Code: I10 Status: Resolved (7) Metabolic acidosis ICD Code: E87.2 Status: Resolved (8) UTI (urinary tract infection) ICD Code: N39.0 Status: Resolved (9) Vaginal discharge ICD Code: N89.8 Status: Resolved (10) Increased urinary frequency ICD Code: R35.0 Status: Resolved Assessment and Plan Left basal ganglia bleed with 4mm MLS with dense Right hemiparesis, stable secondary to cocaine and uncontrolled hypertension Neurosurgery, Dr. Venegas has evaluated the patient. The bleed has been stable on repeat head CT. No surgery needed. Speech therapy indicated soft diet with thin liquids Occupational therapy indicates OT at rehabilitation. Patient will need to continue occupational therapy until discharge Physical therapy indicating PT at rehabilitation. We'll need to continue physical therapy, continue right AFO. Norflex for muscle spasms Abdominal pain: Resolved Leukocytosis resolved CT scan did not indicate any abnormality SOB: Resolved. Chest x-ray without acute abnormality. 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 No signs of central DI Urinalysis was performed which did not indicate any signs of infection Continue Belladonna rectal suppository Hypertension: Controlled Norvasc 10 mg daily Vasotec, clonidine as needed Monitor BP Hypokalemia: Resolved. Patient is on potassium replacement Monitor BMP as needed Alcohol and cocaine abuse dependence patient previously counseled. Status post thiamine Tobacco abuse Counseled on cessation Chronic hepatitis C, chronic Patient with chronic transaminitis continue to follow monthly. 11/05 AST and ALT improved from prior LFTs. Liver ultrasound showed fatty infiltration Anxiety: Controlled Seroquel low-dose initiated on 05/27. Bowel regimen: Justyna-Colace, magnesium hydroxide as needed. DVT prophylaxis Sequential compression devices. Discharge Planning Needs Medicaid for placement, pending. [facility] waiting on return call from [facility]. Occupational therapy recommends shower bench, 3-1 bedside commode for discharge. PT recommends right AFO. Elisabeth Church Nov 08, 2016 10:07
[2016-11-08 20:00] VITALS: BP 110/76; PULSE 83; RESP 18; TEMP 97.9; O2SAT 94
[2016-11-08] MEDS: QUEtiapine FUMARATE 25 MG TAB PO SCH (21:41)
[2016-11-08] MEDS: BELLADONNA ALKALOIDS/OPIUM 60 MG SUPP RECTAL SCH (21:42)
[2016-11-09 08:00] VITALS: BP 119/83; PULSE 78; RESP 16; TEMP 98.3; O2SAT 96
[2016-11-09] MEDS: GABAPENTIN 100 MG CAP PO SCH ×3 (09:38→17:31)
[2016-11-09] MEDS: FAMOTIDINE 20 MG TAB PO SCH ×2 (09:38→20:19)
[2016-11-09] MEDS: POTASSIUM CHLORIDE 10 MEQ CONTROLLED RELEASE TAB PO SCH (09:38)
--- NOTE | 2016-11-09 10:20 | HHI.PR ---
Subjective Remarks Patient seen and examined today. Patient denies any new complaints. No change in clinical status. Objective Vitals Vital Signs Date Time Temp Pulse Resp B/P Pulse Ox O2 Delivery O2 Flow Rate FiO2 11/09/16 08:00 98.3 78 16 119/83 96 11/08/16 20:00 97.9 83 18 110/76 94 I/O 11/08/16 11/08/16 11/08/16 11/09/16 11/09/16 11/09/16 07:00 15:00 23:00 07:00 15:00 23:00 Intake Total 900 ml 320 ml 180 ml Balance 900 ml 320 ml 180 ml Intake Oral 900 ml 320 ml 180 ml # Voids 5 3 3 # Bowel Movements 0 Objective Remarks GENERAL: Well-developed, well-nourished, in no acute distress. alert and orientated HEENT: Head is normocephalic without any lesions or masses noted right facial droop. NECK: Trachea midline no deviation. CARDIAC: Regular rhythm, regular rate. S1/S2 are heard. No murmurs gallops or rubs. LUNGS: Clear to auscultation bilaterally. No wheeze, rhonchi or rales. No use of accessory muscles on inspiration or expiration. ABDOMEN: Soft, nontender. Nondistended. Bowel sounds heard in all 4 quadrants. No organomegaly or masses. Negative rebound, negative guarding EXTREMITIES: No edema, pulses are equal bilaterally. No cyanosis or clubbing NEUROLOGY: Mood and affect appear appropriate. Dense right hemiparesis which appears to be improving in the lower extremity. Patient is able to move her right hand second third and fourth digit. 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 Venegas has evaluated the patient. The bleed has been stable on repeat head CT. No surgery needed. Speech therapy has been following the patient continue on soft diet with thin liquids Occupational therapy indicates OT at rehabilitation. Patient will need to continue occupational therapy until discharge Physical therapy indicating PT at rehabilitation. 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 No signs of central DI Urinalysis was performed which did not indicate any signs of infection Belladonna rectal suppository Hypertension, stable Norvasc 10 mg daily Vasotec, clonidine as needed Alcohol and cocaine abuse dependence patient previously counseled. Status post thiamine Tobacco abuse Counseled on cessation Chronic hepatitis C, chronic Patient with chronic transaminitis continue to follow monthly. liver ultrasound showed fatty infiltration Anxiety. Controlled Seroquel low-dose initiated on 05/27. Bowel regimen Justyna-Colace as needed DVT prophylaxis Sequential compression devices. Discharge Planning Patient has no funding for rehabilitation. Patient was denied SSI. manager process excellence is following up with [facility] regarding status of applications. Occupational therapy recommends shower bench, 3-1 bedside commode for discharge. PT recommends right AFO. 08/16, case management spoke with patient's mother who states that she'll assist in discharge planning. Awaiting decision from the [facility] in [place] 11/05/16 AWAITING MEDICAID APPROVAL FOR ABILITY TO PLACE. BUT ISSUE AROSE THIS WEEK PER [facility] THE INCOME SHE IS RECEIVEING IS IN A DIFFERENT NAME CAUSING A RED FLAG SO MEDICAID PUT A HOLD ON DECISION TO CLEAR UP NAME ISSUE SEEMS SHE HASD ANOTHER NAME THE WHEN ADOPTED SHARATH CHANGED BUT SHE CONTINUED TO GET [employer] [facility] FROM GOVERMENT UNDER ORIGINAL NAME. WHICH NOW IS CAUSING ROAD BLOCK GISELA ORTIZ LPN/CM Jaycob Rebolledo Nov 09, 2016 10:20
[2016-11-09 20:00] VITALS: BP 121/78; PULSE 84; RESP 20; TEMP 97.1; O2SAT 94
[2016-11-09] MEDS: QUEtiapine FUMARATE 25 MG TAB PO SCH (20:19)
[2016-11-09] MEDS: BELLADONNA ALKALOIDS/OPIUM 60 MG SUPP RECTAL SCH (20:19)
[2016-11-10 08:00] VITALS: BP 118/86; PULSE 76; RESP 16; TEMP 97.7; O2SAT 93
[2016-11-10] MEDS: POTASSIUM CHLORIDE 10 MEQ CONTROLLED RELEASE TAB PO SCH (09:18)
[2016-11-10] MEDS: GABAPENTIN 100 MG CAP PO SCH ×3 (09:18→17:41)
[2016-11-10] MEDS: FAMOTIDINE 20 MG TAB PO SCH ×2 (09:18→20:05)
--- NOTE | 2016-11-10 09:44 | HHI.PR ---
Subjective Remarks Patient seen and examined today. Patient denies any new complaints. No change in clinical status. Awaiting case management discharge planning Objective Vitals Vital Signs Date Time Temp Pulse Resp B/P Pulse Ox O2 Delivery O2 Flow Rate FiO2 11/10/16 08:00 97.7 76 16 118/86 93 11/09/16 20:00 97.1 84 20 121/78 94 I/O 11/09/16 11/09/16 11/09/16 11/10/16 11/10/16 11/10/16 07:00 15:00 23:00 07:00 15:00 23:00 Intake Total 180 ml 840 ml 480 ml 620 ml Balance 180 ml 840 ml 480 ml 620 ml Intake Oral 180 ml 840 ml 480 ml 620 ml # Voids 3 2 2 2 # Bowel Movements 0 1 0 Objective Remarks GENERAL: Well-developed, well-nourished, in no acute distress. alert and orientated HEENT: Head is normocephalic without any lesions or masses noted right facial droop. NECK: Trachea midline no deviation. CARDIAC: Regular rhythm, regular rate. S1/S2 are heard. No murmurs gallops or rubs. LUNGS: Clear to auscultation bilaterally. No wheeze, rhonchi or rales. No use of accessory muscles on inspiration or expiration. ABDOMEN: Soft, nontender. Nondistended. Bowel sounds heard in all 4 quadrants. No organomegaly or masses. Negative rebound, negative guarding EXTREMITIES: No edema, pulses are equal bilaterally. No cyanosis or clubbing NEUROLOGY: Mood and affect appear appropriate. Dense right hemiparesis which appears to be improving in the lower extremity. Patient is able to move her right hand second third and fourth digit. 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 Venegas has evaluated the patient. The bleed has been stable on repeat head CT. No surgery needed. Speech therapy has been following the patient continue on soft diet with thin liquids Occupational therapy indicates OT at rehabilitation. Patient will need to continue occupational therapy until discharge Physical therapy indicating PT at rehabilitation. 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 No signs of central DI Urinalysis was performed which did not indicate any signs of infection Belladonna rectal suppository Hypertension, stable Norvasc 10 mg daily Vasotec, clonidine as needed Alcohol and cocaine abuse dependence patient previously counseled. Status post thiamine Tobacco abuse Counseled on cessation Chronic hepatitis C, chronic Patient with chronic transaminitis continue to follow monthly. liver ultrasound showed fatty infiltration Anxiety. Controlled Seroquel low-dose initiated on 05/27. Bowel regimen Justyna-Colace as needed DVT prophylaxis Sequential compression devices. Discharge Planning Patient has no funding for rehabilitation. Patient was denied SSI. canteen manager is following up with [facility] regarding status of applications. Occupational therapy recommends shower bench, 3-1 bedside commode for discharge. PT recommends right AFO. 08/16, case management spoke with patient's mother who states that she'll assist in discharge planning. [place] Nov 10, 2016 09:43
[2016-11-10 20:00] VITALS: BP 128/91; PULSE 83; RESP 20; TEMP 97.2; O2SAT 97
[2016-11-10] MEDS: QUEtiapine FUMARATE 25 MG TAB PO SCH (20:05)
[2016-11-10] MEDS: BELLADONNA ALKALOIDS/OPIUM 60 MG SUPP RECTAL SCH (20:05)
[2016-11-11 08:00] VITALS: BP 122/83; PULSE 77; RESP 20; TEMP 96.7; O2SAT 96
[2016-11-11] MEDS: GABAPENTIN 100 MG CAP PO SCH ×3 (08:33→18:13)
[2016-11-11] MEDS: POTASSIUM CHLORIDE 10 MEQ CONTROLLED RELEASE TAB PO SCH (08:33)
[2016-11-11] MEDS: FAMOTIDINE 20 MG TAB PO SCH ×2 (08:33→20:37)
--- NOTE | 2016-11-11 10:46 | HHI.PR ---
Subjective Remarks Patient seen and examined today. Patient denies any new complaints. No change in clinical status. Awaiting case management for discharge planning Objective Vitals Vital Signs Date Time Temp Pulse Resp B/P Pulse Ox O2 Delivery O2 Flow Rate FiO2 11/11/16 08:00 96.7 77 20 122/83 96 11/10/16 20:00 97.2 83 20 128/91 97 I/O 11/10/16 11/10/16 11/10/16 11/11/16 11/11/16 11/11/16 07:00 15:00 23:00 07:00 15:00 23:00 Intake Total 620 ml 680 ml 720 ml 660 ml Balance 620 ml 680 ml 720 ml 660 ml Intake Oral 620 ml 680 ml 720 ml 660 ml # Voids 2 3 3 2 # Bowel Movements 0 0 0 0 Objective Remarks GENERAL: Well-developed, well-nourished, in no acute distress. alert and orientated HEENT: Head is normocephalic without any lesions or masses noted right facial droop. NECK: Trachea midline no deviation. CARDIAC: Regular rhythm, regular rate. S1/S2 are heard. No murmurs gallops or rubs. LUNGS: Clear to auscultation bilaterally. No wheeze, rhonchi or rales. No use of accessory muscles on inspiration or expiration. ABDOMEN: Soft, nontender. Nondistended. Bowel sounds heard in all 4 quadrants. No organomegaly or masses. Negative rebound, negative guarding EXTREMITIES: No edema, pulses are equal bilaterally. No cyanosis or clubbing NEUROLOGY: Mood and affect appear appropriate. Dense right hemiparesis which appears to be improving in the lower extremity. Patient is able to move her right hand second third and fourth digit. 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 Venegas has evaluated the patient. The bleed has been stable on repeat head CT. No surgery needed. Speech therapy has been following the patient continue on soft diet with thin liquids Occupational therapy indicates OT at rehabilitation. Patient will need to continue occupational therapy until discharge Physical therapy indicating PT at rehabilitation. 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 No signs of central DI Urinalysis was performed which did not indicate any signs of infection Belladonna rectal suppository Hypertension, stable Norvasc 10 mg daily Vasotec, clonidine as needed Alcohol and cocaine abuse dependence patient previously counseled. Status post thiamine Tobacco abuse Counseled on cessation Chronic hepatitis C, chronic Patient with chronic transaminitis continue to follow monthly. liver ultrasound showed fatty infiltration Anxiety. Controlled Seroquel low-dose initiated on 05/27. Bowel regimen Justyna-Colace as needed DVT prophylaxis Sequential compression devices. Discharge Planning Patient has no funding for rehabilitation. Patient was denied SSI. bartender manager is following up with [facility] regarding status of applications. Occupational therapy recommends shower bench, 3-1 bedside commode for discharge. PT recommends right AFO. 08/16, case management spoke with patient's mother who states that she'll assist in discharge planning. [place]ing decision from [place] Nov 11, 2016 10:46
[2016-11-11 20:00] VITALS: BP 120/79; PULSE 83; RESP 16; TEMP 98.5; O2SAT 95
[2016-11-11] MEDS: QUEtiapine FUMARATE 25 MG TAB PO SCH (20:37)
[2016-11-11] MEDS: BELLADONNA ALKALOIDS/OPIUM 60 MG SUPP RECTAL SCH (20:37)
[2016-11-12 08:00] VITALS: BP 126/83; PULSE 82; RESP 20; TEMP 98.3; O2SAT 96
[2016-11-12] MEDS: FAMOTIDINE 20 MG TAB PO SCH ×2 (09:21→21:19)
[2016-11-12] MEDS: POTASSIUM CHLORIDE 10 MEQ CONTROLLED RELEASE TAB PO SCH (09:21)
[2016-11-12] MEDS: GABAPENTIN 100 MG CAP PO SCH ×3 (09:21→17:55)
--- NOTE | 2016-11-12 11:23 | HHI.PR ---
Subjective Remarks Patient seen and examined today. Patient denies any new complaints. No change in clinical status. Awaiting case management for discharge planning Objective Vitals Vital Signs Date Time Temp Pulse Resp B/P Pulse Ox O2 Delivery O2 Flow Rate FiO2 11/12/16 08:00 98.3 82 20 126/83 96 11/11/16 20:00 98.5 83 16 120/79 95 I/O 11/11/16 11/11/16 11/11/16 11/12/16 11/12/16 11/12/16 07:00 15:00 23:00 07:00 15:00 23:00 Intake Total 660 ml 450 ml 680 ml 580 ml Balance 660 ml 450 ml 680 ml 580 ml Intake Oral 660 ml 450 ml 680 ml 580 ml # Voids 2 2 3 3 # Bowel Movements 0 0 0 Objective Remarks GENERAL: Well-developed, well-nourished, in no acute distress. alert and orientated HEENT: Head is normocephalic without any lesions or masses noted right facial droop. NECK: Trachea midline no deviation. CARDIAC: Regular rhythm, regular rate. S1/S2 are heard. No murmurs gallops or rubs. LUNGS: Clear to auscultation bilaterally. No wheeze, rhonchi or rales. No use of accessory muscles on inspiration or expiration. ABDOMEN: Soft, nontender. Nondistended. Bowel sounds heard in all 4 quadrants. No organomegaly or masses. Negative rebound, negative guarding EXTREMITIES: No edema, pulses are equal bilaterally. No cyanosis or clubbing NEUROLOGY: Mood and affect appear appropriate. Dense right hemiparesis which appears to be improving in the lower extremity. Patient is able to move her right hand second third and fourth digit. 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 Venegas has evaluated the patient. The bleed has been stable on repeat head CT. No surgery needed. Speech therapy has been following the patient continue on soft diet with thin liquids Occupational therapy indicates OT at rehabilitation. Patient will need to continue occupational therapy until discharge Physical therapy indicating PT at rehabilitation. 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 No signs of central DI Urinalysis was performed which did not indicate any signs of infection Belladonna rectal suppository Hypertension, stable Norvasc 10 mg daily Vasotec, clonidine as needed Alcohol and cocaine abuse dependence patient previously counseled. Status post thiamine Tobacco abuse Counseled on cessation Chronic hepatitis C, chronic Patient with chronic transaminitis continue to follow monthly. liver ultrasound showed fatty infiltration Anxiety. Controlled Seroquel low-dose initiated on 05/27. Bowel regimen Justyna-Colace as needed DVT prophylaxis Sequential compression devices. Discharge Planning Patient has no funding for rehabilitation. Patient was denied SSI. station manager is following up with [facility] regarding status of applications. Occupational therapy recommends shower bench, 3-1 bedside commode for discharge. PT recommends right AFO. 08/16, case management spoke with patient's mother who states that she'll assist in discharge planning. [facility] [place] [facility] [place] Nov 12, 2016 11:23
[2016-11-12 20:00] VITALS: BP 109/82; PULSE 83; RESP 18; TEMP 98.1; O2SAT 93
[2016-11-12] MEDS: QUEtiapine FUMARATE 25 MG TAB PO SCH (21:19)
[2016-11-12] MEDS: BELLADONNA ALKALOIDS/OPIUM 60 MG SUPP RECTAL SCH (21:19)
[2016-11-13 08:00] VITALS: BP 115/74; PULSE 76; RESP 18; TEMP 98.3; O2SAT 95
[2016-11-13] MEDS: GABAPENTIN 100 MG CAP PO SCH ×3 (08:50→17:42)
[2016-11-13] MEDS: FAMOTIDINE 20 MG TAB PO SCH ×2 (08:50→21:30)
[2016-11-13] MEDS: POTASSIUM CHLORIDE 10 MEQ CONTROLLED RELEASE TAB PO SCH (08:50)
--- NOTE | 2016-11-13 10:21 | HHI.PR ---
Subjective Remarks Patient seen and examined today. Patient denies any new complaints. No change in clinical status. Awaiting case management for discharge planning. Objective Vitals Vital Signs Date Time Temp Pulse Resp B/P Pulse Ox O2 Delivery O2 Flow Rate FiO2 11/13/16 08:00 98.3 76 18 115/74 95 11/12/16 20:00 98.1 83 18 109/82 93 I/O 11/12/16 11/12/16 11/12/16 11/13/16 11/13/16 11/13/16 07:00 15:00 23:00 07:00 15:00 23:00 Intake Total 580 ml 840 ml Output Total 800 ml 250 ml 250 ml Balance 580 ml 40 ml -250 ml -250 ml Intake Oral 580 ml 840 ml Output Urine Total 800 ml 250 ml 250 ml # Voids 3 4 # Bowel Movements 0 0 Objective Remarks GENERAL: Well-developed, well-nourished, in no acute distress. alert and orientated HEENT: Head is normocephalic without any lesions or masses noted right facial droop. NECK: Trachea midline no deviation. CARDIAC: Regular rhythm, regular rate. S1/S2 are heard. No murmurs gallops or rubs. LUNGS: Clear to auscultation bilaterally. No wheeze, rhonchi or rales. No use of accessory muscles on inspiration or expiration. ABDOMEN: Soft, nontender. Nondistended. Bowel sounds heard in all 4 quadrants. No organomegaly or masses. Negative rebound, negative guarding EXTREMITIES: No edema, pulses are equal bilaterally. No cyanosis or clubbing NEUROLOGY: Mood and affect appear appropriate. Dense right hemiparesis which appears to be improving in the lower extremity. Patient is able to move her right hand second third and fourth digit. 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 Venegas has evaluated the patient. The bleed has been stable on repeat head CT. No surgery needed. Speech therapy has been following the patient continue on soft diet with thin liquids Occupational therapy indicates OT at rehabilitation. Patient will need to continue occupational therapy until discharge Physical therapy indicating PT at rehabilitation. 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 No signs of central DI Urinalysis was performed which did not indicate any signs of infection Belladonna rectal suppository Hypertension, stable Norvasc 10 mg daily Vasotec, clonidine as needed Alcohol and cocaine abuse dependence patient previously counseled. Status post thiamine Tobacco abuse Counseled on cessation Chronic hepatitis C, chronic Patient with chronic transaminitis continue to follow monthly. liver ultrasound showed fatty infiltration Anxiety. Controlled Seroquel low-dose initiated on 05/27. Bowel regimen Justyna-Colace as needed DVT prophylaxis Sequential compression devices. Discharge Planning Patient has no funding for rehabilitation. Patient was denied SSI. real estate branch manager is following up with [facility] regarding status of applications. Occupational therapy recommends shower bench, 3-1 bedside commode for discharge. PT recommends right AFO. 08/16, case management spoke with patient's mother who states that she'll assist in discharge planning. [facility] [place] [facility] Nov 13, 2016 10:21
[2016-11-13] MEDS: DOCUSATE SODIUM 50 MG/SENNA 8.6 MG TAB PO PRN (15:37)
[2016-11-13 20:00] VITALS: BP 127/76; PULSE 85; RESP 20; TEMP 97.5; O2SAT 95
[2016-11-13] MEDS: BELLADONNA ALKALOIDS/OPIUM 60 MG SUPP RECTAL SCH (21:30)
[2016-11-13] MEDS: QUEtiapine FUMARATE 25 MG TAB PO SCH (21:30)
[2016-11-14 08:00] VITALS: BP 106/82; PULSE 86; RESP 18; TEMP 98.2; O2SAT 93
[2016-11-14] MEDS: POTASSIUM CHLORIDE 10 MEQ CONTROLLED RELEASE TAB PO SCH (09:21)
[2016-11-14] MEDS: FAMOTIDINE 20 MG TAB PO SCH ×2 (09:21→20:58)
[2016-11-14] MEDS: GABAPENTIN 100 MG CAP PO SCH ×3 (09:21→18:15)
--- NOTE | 2016-11-14 14:32 | HHI.PR ---
Subjective Remarks Patient seen and examined today. Patient denies any new complaints. No change in clinical status. Awaiting case management for discharge planning. Patient is requesting if she had a trapeze that she could possibly getting out of a wheelchair on her own. Objective Vitals Vital Signs Date Time Temp Pulse Resp B/P Pulse Ox O2 Delivery O2 Flow Rate FiO2 11/14/16 08:00 98.2 86 18 106/82 93 11/13/16 20:00 97.5 85 20 127/76 95 I/O 11/13/16 11/13/16 11/13/16 11/14/16 11/14/16 11/14/16 07:00 15:00 23:00 07:00 15:00 23:00 Intake Total 480 ml 480 ml 480 ml Output Total 250 ml Balance -250 ml 480 ml 480 ml 480 ml Intake Oral 480 ml 480 ml 480 ml Output Urine Total 250 ml # Voids 4 2 2 # Bowel Movements 1 0 1 Objective Remarks GENERAL: Well-developed, well-nourished, in no acute distress. alert and orientated HEENT: Head is normocephalic without any lesions or masses noted right facial droop. NECK: Trachea midline no deviation. CARDIAC: Regular rhythm, regular rate. S1/S2 are heard. No murmurs gallops or rubs. LUNGS: Clear to auscultation bilaterally. No wheeze, rhonchi or rales. No use of accessory muscles on inspiration or expiration. ABDOMEN: Soft, nontender. Nondistended. Bowel sounds heard in all 4 quadrants. No organomegaly or masses. Negative rebound, negative guarding EXTREMITIES: No edema, pulses are equal bilaterally. No cyanosis or clubbing NEUROLOGY: Mood and affect appear appropriate. Dense right hemiparesis which appears to be improving in the lower extremity. Patient is able to move her right hand second third and fourth digit. 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 Venegas has evaluated the patient. The bleed has been stable on repeat head CT. No surgery needed. Speech therapy has been following the patient continue on soft diet with thin liquids Occupational therapy indicates OT at rehabilitation. Patient will need to continue occupational therapy until discharge Physical therapy indicating PT at rehabilitation. 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 No signs of central DI Urinalysis was performed which did not indicate any signs of infection Belladonna rectal suppository Hypertension, stable Norvasc 10 mg daily Vasotec, clonidine as needed Alcohol and cocaine abuse dependence patient previously counseled. Status post thiamine Tobacco abuse Counseled on cessation Chronic hepatitis C, chronic Patient with chronic transaminitis continue to follow monthly. liver ultrasound showed fatty infiltration Anxiety. Controlled Seroquel low-dose initiated on 05/27. Bowel regimen Justyna-Colace as needed DVT prophylaxis Sequential compression devices. Discharge Planning Patient has no funding for rehabilitation. Patient was denied SSI. 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 Occupational therapy recommends shower bench, 3-1 bedside commode for discharge. PT recommends right AFO. 08/16, case management spoke with patient's mother who states that she'll assist in discharge planning. Awaiting decision from the [place] in [place] Nov 14, 2016 14:32
[2016-11-14 20:00] VITALS: BP 114/78; PULSE 83; RESP 18; TEMP 97.2; O2SAT 95
[2016-11-14] MEDS: BELLADONNA ALKALOIDS/OPIUM 60 MG SUPP RECTAL SCH (20:58)
[2016-11-14] MEDS: QUEtiapine FUMARATE 25 MG TAB PO SCH (20:58)
[2016-11-15 08:00] VITALS: BP 103/77; PULSE 82; RESP 20; TEMP 98; O2SAT 93
[2016-11-15] MEDS: POTASSIUM CHLORIDE 10 MEQ CONTROLLED RELEASE TAB PO SCH (09:26)
[2016-11-15] MEDS: GABAPENTIN 100 MG CAP PO SCH ×3 (09:26→18:09)
[2016-11-15] MEDS: FAMOTIDINE 20 MG TAB PO SCH ×2 (09:26→21:13)
--- NOTE | 2016-11-15 12:05 | HHI.PR ---
Subjective Remarks Patient seen and examined today. Patient has any new complaints. No change in clinical status. Awaiting case management for discharge planning Objective Vitals Vital Signs Date Time Temp Pulse Resp B/P Pulse Ox O2 Delivery O2 Flow Rate FiO2 11/15/16 08:00 98.0 82 20 103/77 93 11/14/16 20:00 97.2 83 18 114/78 95 I/O 11/14/16 11/14/16 11/14/16 11/15/16 11/15/16 11/15/16 07:00 15:00 23:00 07:00 15:00 23:00 Intake Total 480 ml 360 ml 480 ml 480 ml Balance 480 ml 360 ml 480 ml 480 ml Intake Oral 480 ml 360 ml 480 ml 480 ml # Voids 2 4 2 3 # Bowel Movements 1 0 1 0 Objective Remarks GENERAL: Well-developed, well-nourished, in no acute distress. alert and orientated HEENT: Head is normocephalic without any lesions or masses noted right facial droop. NECK: Trachea midline no deviation. CARDIAC: Regular rhythm, regular rate. S1/S2 are heard. No murmurs gallops or rubs. LUNGS: Clear to auscultation bilaterally. No wheeze, rhonchi or rales. No use of accessory muscles on inspiration or expiration. ABDOMEN: Soft, nontender. Nondistended. Bowel sounds heard in all 4 quadrants. No organomegaly or masses. Negative rebound, negative guarding EXTREMITIES: No edema, pulses are equal bilaterally. No cyanosis or clubbing NEUROLOGY: Mood and affect appear appropriate. Dense right hemiparesis which appears to be improving in the lower extremity. Patient is able to move her right hand second third and fourth digit. 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 Venegas has evaluated the patient. The bleed has been stable on repeat head CT. No surgery needed. Speech therapy has been following the patient continue on soft diet with thin liquids Occupational therapy indicates OT at rehabilitation. Patient will need to continue occupational therapy until discharge Physical therapy indicating PT at rehabilitation. We'll need to continue physical therapy, continue right AFO, Norflex for muscle spasm --Awaiting trapeze assembly for bed to facilitate functioning --Consulted OT for wheelchair recommendations Right arm pain, controlled Continue Neurontin for right arm neuropathic pain Dysuria, urinary frequency, resolved BNP was performed, sodium level was normal. No signs of central DI Urinalysis was performed which did not indicate any signs of infection Belladonna rectal suppository Hypertension, stable Norvasc 10 mg daily Vasotec, clonidine as needed Alcohol and cocaine abuse dependence patient previously counseled. Status post thiamine Tobacco abuse Counseled on cessation Chronic hepatitis C, chronic Patient with chronic transaminitis continue to follow monthly. liver ultrasound showed fatty infiltration Anxiety. Controlled Seroquel low-dose initiated on 05/27. Bowel regimen Justyna-Colace as needed DVT prophylaxis Sequential compression devices. Discharge Planning Patient has no funding for rehabilitation. Patient was denied SSI. 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 Occupational therapy recommends shower bench, 3-1 bedside commode for discharge. PT recommends right AFO. 08/16, case management spoke with patient's mother who states that she'll assist in discharge planning. [facility] [place] [facility] Nov 15, 2016 12:05
[2016-11-15 20:00] VITALS: BP 116/87; PULSE 83; RESP 18; TEMP 98.1; O2SAT 95
[2016-11-15] MEDS: BELLADONNA ALKALOIDS/OPIUM 60 MG SUPP RECTAL SCH (21:13)
[2016-11-15] MEDS: QUEtiapine FUMARATE 25 MG TAB PO SCH (21:13)
[2016-11-16 08:00] VITALS: BP 123/87; PULSE 85; RESP 18; TEMP 97.7; O2SAT 96
[2016-11-16] MEDS: FAMOTIDINE 20 MG TAB PO SCH ×2 (09:39→20:15)
[2016-11-16] MEDS: POTASSIUM CHLORIDE 10 MEQ CONTROLLED RELEASE TAB PO SCH (09:39)
[2016-11-16] MEDS: GABAPENTIN 100 MG CAP PO SCH ×3 (09:39→16:51)
--- NOTE | 2016-11-16 18:13 | HHI.PR ---
Subjective Remarks No acute complaints. No change in clinical status. Objective Vitals Vital Signs Date Time Temp Pulse Resp B/P Pulse Ox O2 Delivery O2 Flow Rate FiO2 11/16/16 08:00 97.7 85 18 123/87 96 11/15/16 20:00 98.1 83 18 116/87 95 I/O 11/15/16 11/15/16 11/15/16 11/16/16 11/16/16 11/16/16 07:00 15:00 23:00 07:00 15:00 23:00 Intake Total 480 ml 1000 ml 0 ml 0 ml 750 ml Balance 480 ml 1000 ml 0 ml 0 ml 750 ml Intake Oral 480 ml 1000 ml 750 ml IV Total 0 ml 0 ml # Voids 3 5 1 3 3 # Bowel Movements 0 0 1 Objective Remarks GENERAL: Thin patient in no apparent distress. CARDIOVASCULAR: Regular rate and rhythm. RESPIRATORY: RR normal. CTAB. GASTROINTESTINAL: Abdomen soft, nontender, non-distended. NEUROLOGICAL: Awake and alert. PSYCHIATRIC: Insight and judgment normal. 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 (2) Hemiparesis affecting right side as late effect of cerebrovascular accident (CVA) ICD Code: I69.351 Status: Chronic (3) Shortness of breath ICD Code: R06.02 Status: Resolved (4) Fever ICD Code: R50.9 Status: Resolved (5) Abdominal pain ICD Code: R10.9 Status: Resolved (6) Hypertensive emergency ICD Code: I10 Status: Resolved (7) Metabolic acidosis ICD Code: E87.2 Status: Resolved (8) UTI (urinary tract infection) ICD Code: N39.0 Status: Resolved (9) Vaginal discharge ICD Code: N89.8 Status: Resolved (10) Increased urinary frequency ICD Code: R35.0 Status: Resolved Assessment and Plan 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 Venegas has evaluated the patient. The bleed has been stable on repeat head CT. No surgery needed. Speech therapy indicated soft diet with thin liquids Occupational therapy indicates OT at rehabilitation. Patient will need to continue occupational therapy until discharge Physical therapy indicating PT at rehabilitation. We'll need to continue physical therapy, continue right AFO. Norflex for muscle spasms Abdominal pain: Resolved Leukocytosis resolved CT scan did not indicate any abnormality SOB: Resolved. Chest x-ray without acute abnormality. 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 No signs of central DI Urinalysis was performed which did not indicate any signs of infection Continue Belladonna rectal suppository Hypertension: Controlled Norvasc 10 mg daily Vasotec, clonidine as needed Monitor BP Hypokalemia: Resolved. Patient is on potassium replacement Monitor BMP as needed Alcohol and cocaine abuse dependence patient previously counseled. Status post thiamine Tobacco abuse Counseled on cessation Chronic hepatitis C, chronic Patient with chronic transaminitis continue to follow monthly. 11/05 AST and ALT improved from prior LFTs. Liver ultrasound showed fatty infiltration Anxiety: Controlled Seroquel low-dose initiated on 05/27. Bowel regimen: Justyna-Colace, magnesium hydroxide as needed. DVT prophylaxis Sequential compression devices. Discharge Planning Occupational therapy recommends shower bench, 3-1 bedside commode for discharge. PT recommends right AFO. CM working on placement. Elisabeth Church Nov 16, 2016 18:13
[2016-11-16] MEDS: ORPHENADRINE CITRATE 100 MG SUSTAINED RELEASE TAB PO PRN (18:33)
[2016-11-16 20:00] VITALS: BP 129/80; PULSE 85; RESP 18; TEMP 98.4; O2SAT 96
[2016-11-16] MEDS: QUEtiapine FUMARATE 25 MG TAB PO SCH (20:15)
[2016-11-16] MEDS: BELLADONNA ALKALOIDS/OPIUM 60 MG SUPP RECTAL SCH (20:15)
[2016-11-17 08:00] VITALS: BP 136/84; PULSE 81; RESP 16; TEMP 98.1; O2SAT 96
--- NOTE | 2016-11-17 09:02 | HHI.PR ---
Subjective Remarks No acute complaints. No change in clinical status. Objective Vitals Vital Signs Date Time Temp Pulse Resp B/P Pulse Ox O2 Delivery O2 Flow Rate FiO2 11/17/16 08:00 98.1 81 16 136/84 96 11/16/16 20:00 98.4 85 18 129/80 96 I/O 11/16/16 11/16/16 11/16/16 11/17/16 11/17/16 11/17/16 07:00 15:00 23:00 07:00 15:00 23:00 Intake Total 0 ml 750 ml 600 ml 480 ml Balance 0 ml 750 ml 600 ml 480 ml Intake Oral 750 ml 600 ml 480 ml IV Total 0 ml # Voids 3 5 2 # Bowel Movements 1 0 Objective Remarks GENERAL: Thin patient in no apparent distress. CARDIOVASCULAR: Regular rate and rhythm. RESPIRATORY: RR normal. CTAB. GASTROINTESTINAL: Abdomen soft, nontender, non-distended. NEUROLOGICAL: Awake and alert. PSYCHIATRIC: Insight and judgment normal. 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 (2) Hemiparesis affecting right side as late effect of cerebrovascular accident (CVA) ICD Code: I69.351 Status: Chronic (3) Shortness of breath ICD Code: R06.02 Status: Resolved (4) Fever ICD Code: R50.9 Status: Resolved (5) Abdominal pain ICD Code: R10.9 Status: Resolved (6) Hypertensive emergency ICD Code: I10 Status: Resolved (7) Metabolic acidosis ICD Code: E87.2 Status: Resolved (8) UTI (urinary tract infection) ICD Code: N39.0 Status: Resolved (9) Vaginal discharge ICD Code: N89.8 Status: Resolved (10) Increased urinary frequency ICD Code: R35.0 Status: Resolved Assessment and Plan 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 Venegas has evaluated the patient. The bleed has been stable on repeat head CT. No surgery needed. Speech therapy indicated soft diet with thin liquids Occupational therapy indicates OT at rehabilitation. Patient will need to continue occupational therapy until discharge Physical therapy indicating PT at rehabilitation. We'll need to continue physical therapy, continue right AFO. Norflex for muscle spasms Abdominal pain: Resolved Leukocytosis resolved CT scan did not indicate any abnormality SOB: Resolved. Chest x-ray without acute abnormality. 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 No signs of central DI Urinalysis was performed which did not indicate any signs of infection Continue Belladonna rectal suppository Hypertension: Controlled Norvasc 10 mg daily Vasotec, clonidine as needed Monitor BP Hypokalemia: Resolved. Patient is on potassium replacement Monitor BMP as needed Alcohol and cocaine abuse dependence patient previously counseled. Status post thiamine Tobacco abuse Counseled on cessation Chronic hepatitis C, chronic Patient with chronic transaminitis continue to follow monthly. 11/05 AST and ALT improved from prior LFTs. Liver ultrasound showed fatty infiltration Anxiety: Controlled Seroquel low-dose initiated on 05/27. Bowel regimen: Justyna-Colace, magnesium hydroxide as needed. DVT prophylaxis Sequential compression devices. Discharge Planning Occupational therapy recommends shower bench, 3-1 bedside commode for discharge. PT recommends right AFO. CM working on placement. Elisabeth Church Nov 17, 2016 09:02
[2016-11-17] MEDS: FAMOTIDINE 20 MG TAB PO SCH ×2 (10:20→21:27)
[2016-11-17] MEDS: POTASSIUM CHLORIDE 10 MEQ CONTROLLED RELEASE TAB PO SCH (10:20)
[2016-11-17] MEDS: GABAPENTIN 100 MG CAP PO SCH ×3 (10:20→18:08)
[2016-11-17 20:00] VITALS: BP 117/73; PULSE 87; RESP 20; TEMP 96.7; O2SAT 94
[2016-11-17] MEDS: ORPHENADRINE CITRATE 100 MG SUSTAINED RELEASE TAB PO PRN (21:26)
[2016-11-17] MEDS: BELLADONNA ALKALOIDS/OPIUM 60 MG SUPP RECTAL SCH (21:27)
[2016-11-17] MEDS: QUEtiapine FUMARATE 25 MG TAB PO SCH (21:27)
[2016-11-18 08:00] VITALS: BP 111/74; PULSE 78; RESP 17; TEMP 98.4; O2SAT 95
[2016-11-18] MEDS: GABAPENTIN 100 MG CAP PO SCH ×3 (09:03→16:15)
[2016-11-18] MEDS: POTASSIUM CHLORIDE 10 MEQ CONTROLLED RELEASE TAB PO SCH (09:03)
[2016-11-18] MEDS: FAMOTIDINE 20 MG TAB PO SCH ×2 (09:03→20:24)
--- NOTE | 2016-11-18 12:23 | HHI.PR ---
Subjective Remarks No acute complaints. No change in clinical status. Objective Vitals Vital Signs Date Time Temp Pulse Resp B/P Pulse Ox O2 Delivery O2 Flow Rate FiO2 11/18/16 08:00 98.4 78 17 111/74 95 11/17/16 20:00 96.7 87 20 117/73 94 I/O 11/17/16 11/17/16 11/17/16 11/18/16 11/18/16 11/18/16 07:00 15:00 23:00 07:00 15:00 23:00 Intake Total 480 ml 600 ml 720 ml 480 ml Balance 480 ml 600 ml 720 ml 480 ml Intake Oral 480 ml 600 ml 720 ml 480 ml # Voids 2 4 2 3 # Bowel Movements 0 0 0 0 Objective Remarks GENERAL: Thin patient in no apparent distress. CARDIOVASCULAR: Regular rate and rhythm. RESPIRATORY: RR normal. CTAB. GASTROINTESTINAL: Abdomen soft, nontender, non-distended. NEUROLOGICAL: Awake and alert. PSYCHIATRIC: Insight and judgment normal. 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 (2) Hemiparesis affecting right side as late effect of cerebrovascular accident (CVA) ICD Code: I69.351 Status: Chronic (3) Shortness of breath ICD Code: R06.02 Status: Resolved (4) Fever ICD Code: R50.9 Status: Resolved (5) Abdominal pain ICD Code: R10.9 Status: Resolved (6) Hypertensive emergency ICD Code: I10 Status: Resolved (7) Metabolic acidosis ICD Code: E87.2 Status: Resolved (8) UTI (urinary tract infection) ICD Code: N39.0 Status: Resolved (9) Vaginal discharge ICD Code: N89.8 Status: Resolved (10) Increased urinary frequency ICD Code: R35.0 Status: Resolved Assessment and Plan 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 Venegas has evaluated the patient. The bleed has been stable on repeat head CT. No surgery needed. Speech therapy indicated soft diet with thin liquids Occupational therapy indicates OT at rehabilitation. Patient will need to continue occupational therapy until discharge Physical therapy indicating PT at rehabilitation. We'll need to continue physical therapy, continue right AFO. Norflex for muscle spasms Abdominal pain: Resolved Leukocytosis resolved CT scan did not indicate any abnormality SOB: Resolved. Chest x-ray without acute abnormality. 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 No signs of central DI Urinalysis was performed which did not indicate any signs of infection Continue Belladonna rectal suppository Hypertension: Controlled Norvasc 10 mg daily Vasotec, clonidine as needed Monitor BP Hypokalemia: Resolved. Patient is on potassium replacement Monitor BMP as needed Alcohol and cocaine abuse dependence patient previously counseled. Status post thiamine Tobacco abuse Counseled on cessation Chronic hepatitis C, chronic Patient with chronic transaminitis continue to follow monthly. 11/05 AST and ALT improved from prior LFTs. Liver ultrasound showed fatty infiltration Anxiety: Controlled Seroquel low-dose initiated on 05/27. Bowel regimen: Justyna-Colace, magnesium hydroxide as needed. DVT prophylaxis Sequential compression devices. Discharge Planning Occupational therapy recommends shower bench, 3-1 bedside commode for discharge. PT recommends right AFO. CM working on placement. Elisabeth Church Nov 18, 2016 12:23
[2016-11-18 20:00] VITALS: BP 121/73; PULSE 77; RESP 16; TEMP 98.4; O2SAT 94
[2016-11-18] MEDS: QUEtiapine FUMARATE 25 MG TAB PO SCH (20:24)
[2016-11-18] MEDS: BELLADONNA ALKALOIDS/OPIUM 60 MG SUPP RECTAL SCH (20:24)
[2016-11-19 08:00] VITALS: BP 122/76; PULSE 89; RESP 20; TEMP 97.8; O2SAT 96
[2016-11-19] MEDS: FAMOTIDINE 20 MG TAB PO SCH ×2 (08:37→21:09)
[2016-11-19] MEDS: GABAPENTIN 100 MG CAP PO SCH ×3 (08:37→17:03)
[2016-11-19] MEDS: POTASSIUM CHLORIDE 10 MEQ CONTROLLED RELEASE TAB PO SCH (08:37)
--- NOTE | 2016-11-19 13:21 | HHI.PR ---
Subjective Remarks No acute complaints. No change in clinical status. Objective Vitals Vital Signs Date Time Temp Pulse Resp B/P Pulse Ox O2 Delivery O2 Flow Rate FiO2 11/19/16 08:00 97.8 89 20 122/76 96 11/18/16 20:00 98.4 77 16 121/73 94 I/O 11/18/16 11/18/16 11/18/16 11/19/16 11/19/16 11/19/16 07:00 15:00 23:00 07:00 15:00 23:00 Intake Total 480 ml 620 ml 480 ml 480 ml 320 ml Balance 480 ml 620 ml 480 ml 480 ml 320 ml Intake Oral 480 ml 620 ml 480 ml 480 ml 320 ml # Voids 3 5 2 # Bowel Movements 0 0 0 Objective Remarks GENERAL: Thin patient in no apparent distress. CARDIOVASCULAR: Regular rate and rhythm. RESPIRATORY: RR normal. CTAB. GASTROINTESTINAL: Abdomen soft, nontender, non-distended. NEUROLOGICAL: Awake and alert. PSYCHIATRIC: Insight and judgment normal. 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 (2) Hemiparesis affecting right side as late effect of cerebrovascular accident (CVA) ICD Code: I69.351 Status: Chronic (3) Shortness of breath ICD Code: R06.02 Status: Resolved (4) Fever ICD Code: R50.9 Status: Resolved (5) Abdominal pain ICD Code: R10.9 Status: Resolved (6) Hypertensive emergency ICD Code: I10 Status: Resolved (7) Metabolic acidosis ICD Code: E87.2 Status: Resolved (8) UTI (urinary tract infection) ICD Code: N39.0 Status: Resolved (9) Vaginal discharge ICD Code: N89.8 Status: Resolved (10) Increased urinary frequency ICD Code: R35.0 Status: Resolved Assessment and Plan Left basal ganglia bleed with 4mm MLS with dense Right hemiparesis, stable secondary to cocaine and uncontrolled hypertension Neurosurgery, Dr. Venegas has evaluated the patient. The bleed has been stable on repeat head CT. No surgery needed. Speech therapy indicated soft diet with thin liquids Occupational therapy indicates OT at rehabilitation. Patient will need to continue occupational therapy until discharge Physical therapy indicating PT at rehabilitation. We'll need to continue physical therapy, continue right AFO. Norflex for muscle spasms Abdominal pain: Resolved Leukocytosis resolved CT scan did not indicate any abnormality SOB: Resolved. Chest x-ray without acute abnormality. 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 No signs of central DI Urinalysis was performed which did not indicate any signs of infection Continue Belladonna rectal suppository Hypertension: Controlled Norvasc 10 mg daily Vasotec, clonidine as needed Monitor BP Hypokalemia: Resolved. Patient is on potassium replacement Monitor BMP as needed Alcohol and cocaine abuse dependence patient previously counseled. Status post thiamine Tobacco abuse Counseled on cessation Chronic hepatitis C, chronic Patient with chronic transaminitis continue to follow monthly. 11/05 AST and ALT improved from prior LFTs. Liver ultrasound showed fatty infiltration Anxiety: Controlled Seroquel low-dose initiated on 05/27. Bowel regimen: Justyna-Colace, magnesium hydroxide as needed. DVT prophylaxis Sequential compression devices. Discharge Planning Occupational therapy recommends shower bench, 3-1 bedside commode for discharge. PT recommends right AFO. CM working on placement. Elisabeth Church Nov 19, 2016 13:21
[2016-11-19 20:00] VITALS: BP 124/73; PULSE 82; RESP 18; TEMP 97.8; O2SAT 98
[2016-11-19] MEDS: BELLADONNA ALKALOIDS/OPIUM 60 MG SUPP RECTAL SCH (21:09)
[2016-11-19] MEDS: QUEtiapine FUMARATE 25 MG TAB PO SCH (21:09)
[2016-11-20] MEDS: GABAPENTIN 100 MG CAP PO SCH ×3 (08:57→16:31)
[2016-11-20] MEDS: POTASSIUM CHLORIDE 10 MEQ CONTROLLED RELEASE TAB PO SCH (08:58)
[2016-11-20] MEDS: FAMOTIDINE 20 MG TAB PO SCH ×2 (08:58→20:31)
[2016-11-20 09:00] VITALS: BP 130/70; PULSE 80; RESP 18; TEMP 98.1; O2SAT 95
--- NOTE | 2016-11-20 11:41 | HHI.PR ---
Subjective Remarks No acute complaints. No change in clinical status. Objective Vitals Vital Signs Date Time Temp Pulse Resp B/P Pulse Ox O2 Delivery O2 Flow Rate FiO2 11/20/16 09:00 98.1 80 18 130/70 95 11/19/16 20:00 97.8 82 18 124/73 98 I/O 11/19/16 11/19/16 11/19/16 11/20/16 11/20/16 11/20/16 07:00 15:00 23:00 07:00 15:00 23:00 Intake Total 480 ml 320 ml 760 ml Output Total 4 ml Balance 480 ml 320 ml 756 ml Intake Oral 480 ml 320 ml 760 ml Output Urine Total 4 ml # Voids 1 # Bowel Movements 1 0 Objective Remarks GENERAL: Thin patient in no apparent distress. CARDIOVASCULAR: Regular rate and rhythm. RESPIRATORY: RR normal. CTAB. GASTROINTESTINAL: Abdomen soft, nontender, non-distended. NEUROLOGICAL: Awake and alert. PSYCHIATRIC: Insight and judgment normal. 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 (2) Hemiparesis affecting right side as late effect of cerebrovascular accident (CVA) ICD Code: I69.351 Status: Chronic (3) Shortness of breath ICD Code: R06.02 Status: Resolved (4) Fever ICD Code: R50.9 Status: Resolved (5) Abdominal pain ICD Code: R10.9 Status: Resolved (6) Hypertensive emergency ICD Code: I10 Status: Resolved (7) Metabolic acidosis ICD Code: E87.2 Status: Resolved (8) UTI (urinary tract infection) ICD Code: N39.0 Status: Resolved (9) Vaginal discharge ICD Code: N89.8 Status: Resolved (10) Increased urinary frequency ICD Code: R35.0 Status: Resolved Assessment and Plan Left basal ganglia bleed with 4mm MLS with dense Right hemiparesis, stable secondary to cocaine and uncontrolled hypertension Neurosurgery, Dr. Venegas has evaluated the patient. The bleed has been stable on repeat head CT. No surgery needed. Speech therapy indicated soft diet with thin liquids Occupational therapy indicates OT at rehabilitation. Patient will need to continue occupational therapy until discharge Physical therapy indicating PT at rehabilitation. We'll need to continue physical therapy, continue right AFO. Norflex for muscle spasms Abdominal pain: Resolved Leukocytosis resolved CT scan did not indicate any abnormality SOB: Resolved. Chest x-ray without acute abnormality. 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 No signs of central DI Urinalysis was performed which did not indicate any signs of infection Continue Belladonna rectal suppository Hypertension: Controlled Norvasc 10 mg daily Vasotec, clonidine as needed Monitor BP Hypokalemia: Resolved. Patient is on potassium replacement Monitor BMP as needed Alcohol and cocaine abuse dependence patient previously counseled. Status post thiamine Tobacco abuse Counseled on cessation Chronic hepatitis C, chronic Patient with chronic transaminitis continue to follow monthly. 11/05 AST and ALT improved from prior LFTs. Liver ultrasound showed fatty infiltration Anxiety: Controlled Seroquel low-dose initiated on 05/27. Bowel regimen: Justyna-Colace, magnesium hydroxide as needed. DVT prophylaxis Sequential compression devices. Discharge Planning Occupational therapy recommends shower bench, 3-1 bedside commode for discharge. PT recommends right AFO. CM working on placement. Elisabeth Church Nov 20, 2016 11:41
[2016-11-20 20:00] VITALS: BP 118/75; PULSE 78; RESP 18; TEMP 97.8; O2SAT 97
[2016-11-20] MEDS: BELLADONNA ALKALOIDS/OPIUM 60 MG SUPP RECTAL SCH (20:31)
[2016-11-20] MEDS: ORPHENADRINE CITRATE 100 MG SUSTAINED RELEASE TAB PO PRN (20:31)
[2016-11-20] MEDS: QUEtiapine FUMARATE 25 MG TAB PO SCH (20:32)
[2016-11-21 08:00] VITALS: BP 130/70; PULSE 92; RESP 17; TEMP 97.5; O2SAT 93
[2016-11-21] MEDS: POTASSIUM CHLORIDE 10 MEQ CONTROLLED RELEASE TAB PO SCH (09:07)
[2016-11-21] MEDS: FAMOTIDINE 20 MG TAB PO SCH ×2 (09:07→22:27)
[2016-11-21] MEDS: GABAPENTIN 100 MG CAP PO SCH ×3 (09:07→18:39)
--- NOTE | 2016-11-21 17:25 | HHI.PR ---
Objective Vitals Vital Signs Date Time Temp Pulse Resp B/P Pulse Ox O2 Delivery O2 Flow Rate FiO2 11/21/16 08:00 97.5 92 17 130/70 93 11/20/16 20:00 97.8 78 18 118/75 97 I/O 11/20/16 11/20/16 11/20/16 11/21/16 11/21/16 11/21/16 07:00 15:00 23:00 07:00 15:00 23:00 Intake Total 480 ml 280 ml 540 ml Output Total 2 ml Balance 480 ml 280 ml 538 ml Intake Oral 480 ml 280 ml 540 ml Stool Total 2 ml # Voids 1 3 3 5 # Bowel Movements 0 1 Objective Remarks GENERAL: This is a well-nourished, well-developed patient, in no apparent distress. CARDIOVASCULAR: Regular rate and rhythm without murmurs, gallops, or rubs. RESPIRATORY: Clear to auscultation. Breath sounds equal bilaterally. No wheezes , rales, or rhonchi. GASTROINTESTINAL: Abdomen soft, non-tender, nondistended. Normal active bowel sounds MUSCULOSKELETAL: Extremities without clubbing, cyanosis, or edema. 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 (2) Hemiparesis affecting right side as late effect of cerebrovascular accident (CVA) ICD Code: I69.351 Status: Chronic (3) Shortness of breath ICD Code: R06.02 Status: Resolved (4) Fever ICD Code: R50.9 Status: Resolved (5) Abdominal pain ICD Code: R10.9 Status: Resolved (6) Hypertensive emergency ICD Code: I10 Status: Resolved (7) Metabolic acidosis ICD Code: E87.2 Status: Resolved (8) UTI (urinary tract infection) ICD Code: N39.0 Status: Resolved (9) Vaginal discharge ICD Code: N89.8 Status: Resolved (10) Increased urinary frequency ICD Code: R35.0 Status: Resolved Assessment and Plan Continue with medical management of Left basal ganglia bleed with 4mm MLS with dense Right hemiparesis, stable Discharge Planning Case management aware of Barriers to discharge Jessica Garcia MD Nov 21, 2016 17:25
[2016-11-21 20:00] VITALS: BP 135/83; PULSE 78; RESP 18; TEMP 97.7; O2SAT 96
[2016-11-21] MEDS: QUEtiapine FUMARATE 25 MG TAB PO SCH (22:27)
[2016-11-21] MEDS: BELLADONNA ALKALOIDS/OPIUM 60 MG SUPP RECTAL SCH (22:27)
[2016-11-21] MEDS: ORPHENADRINE CITRATE 100 MG SUSTAINED RELEASE TAB PO PRN (22:31)
[2016-11-22] MEDS: POTASSIUM CHLORIDE 10 MEQ CONTROLLED RELEASE TAB PO SCH (07:49)
[2016-11-22] MEDS: FAMOTIDINE 20 MG TAB PO SCH ×2 (07:49→20:08)
[2016-11-22] MEDS: GABAPENTIN 100 MG CAP PO SCH ×3 (07:49→16:57)
[2016-11-22 08:18] VITALS: BP 120/78; PULSE 89; RESP 20; TEMP 97.5; O2SAT 99
--- NOTE | 2016-11-22 11:45 | HHI.PR ---
Subjective Remarks No acute complaints. No change in clinical status. Objective Vitals Vital Signs Date Time Temp Pulse Resp B/P Pulse Ox O2 Delivery O2 Flow Rate FiO2 11/22/16 08:18 97.5 89 20 120/78 99 11/21/16 20:00 97.7 78 18 135/83 96 I/O 11/21/16 11/21/16 11/21/16 11/22/16 11/22/16 11/22/16 07:00 15:00 23:00 07:00 15:00 23:00 Intake Total 280 ml 540 ml 680 ml 480 ml Output Total 2 ml Balance 280 ml 538 ml 680 ml 480 ml Intake Oral 280 ml 540 ml 680 ml 480 ml Stool Total 2 ml # Voids 3 5 2 # Bowel Movements 1 0 Objective Remarks GENERAL: Thin patient in no apparent distress. CARDIOVASCULAR: Regular rate and rhythm. RESPIRATORY: RR normal. CTAB. GASTROINTESTINAL: Abdomen soft, nontender, non-distended. NEUROLOGICAL: Awake and alert. PSYCHIATRIC: Insight and judgment normal. 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 (2) Hemiparesis affecting right side as late effect of cerebrovascular accident (CVA) ICD Code: I69.351 Status: Chronic (3) Shortness of breath ICD Code: R06.02 Status: Resolved (4) Fever ICD Code: R50.9 Status: Resolved (5) Abdominal pain ICD Code: R10.9 Status: Resolved (6) Hypertensive emergency ICD Code: I10 Status: Resolved (7) Metabolic acidosis ICD Code: E87.2 Status: Resolved (8) UTI (urinary tract infection) ICD Code: N39.0 Status: Resolved (9) Vaginal discharge ICD Code: N89.8 Status: Resolved (10) Increased urinary frequency ICD Code: R35.0 Status: Resolved Assessment and Plan Left basal ganglia bleed with 4mm MLS with dense Right hemiparesis, stable secondary to cocaine and uncontrolled hypertension Neurosurgery, Dr. Venegas has evaluated the patient. The bleed has been stable on repeat head CT. No surgery needed. Speech therapy indicated soft diet with thin liquids Occupational therapy indicates OT at rehabilitation. Patient will need to continue occupational therapy until discharge Physical therapy indicating PT at rehabilitation. We'll need to continue physical therapy, continue right AFO. Norflex for muscle spasms Abdominal pain: Resolved Leukocytosis resolved CT scan did not indicate any abnormality SOB: Resolved. Chest x-ray without acute abnormality. 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 No signs of central DI Urinalysis was performed which did not indicate any signs of infection Continue Belladonna rectal suppository Hypertension: Controlled Norvasc 10 mg daily Vasotec, clonidine as needed Monitor BP Hypokalemia: Resolved. Patient is on potassium replacement Monitor BMP as needed Alcohol and cocaine abuse dependence patient previously counseled. Status post thiamine Tobacco abuse Counseled on cessation Chronic hepatitis C, chronic Patient with chronic transaminitis continue to follow monthly. 11/05 AST and ALT improved from prior LFTs. Liver ultrasound showed fatty infiltration Anxiety: Controlled Seroquel low-dose initiated on 05/27. Bowel regimen: Justyna-Colace, magnesium hydroxide as needed. DVT prophylaxis Sequential compression devices. Discharge Planning Occupational therapy recommends shower bench, 3-1 bedside commode for discharge. PT recommends right AFO. CM working on placement. Elisabeth Church Nov 22, 2016 11:45
[2016-11-22 20:00] VITALS: BP 116/79; PULSE 79; RESP 20; TEMP 96.8; O2SAT 96
[2016-11-22] MEDS: QUEtiapine FUMARATE 25 MG TAB PO SCH (20:08)
[2016-11-22] MEDS: BELLADONNA ALKALOIDS/OPIUM 60 MG SUPP RECTAL SCH (20:09)
[2016-11-22] MEDS: ORPHENADRINE CITRATE 100 MG SUSTAINED RELEASE TAB PO PRN (20:09)
[2016-11-23 08:00] VITALS: BP 108/70; PULSE 81; RESP 18; TEMP 97.3; O2SAT 97
[2016-11-23] MEDS: FAMOTIDINE 20 MG TAB PO SCH ×2 (09:02→20:51)
[2016-11-23] MEDS: GABAPENTIN 100 MG CAP PO SCH ×3 (09:02→17:32)
[2016-11-23] MEDS: POTASSIUM CHLORIDE 10 MEQ CONTROLLED RELEASE TAB PO SCH (09:02)
--- NOTE | 2016-11-23 09:57 | HHI.PR ---
Subjective Remarks Patient seen and examined today. Patient denies any new complaints. No change in clinical status. Awaiting case management discharge planning Objective Vitals Vital Signs Date Time Temp Pulse Resp B/P Pulse Ox O2 Delivery O2 Flow Rate FiO2 11/22/16 20:00 96.8 79 20 116/79 96 I/O 11/22/16 11/22/16 11/22/16 11/23/16 11/23/16 11/23/16 07:00 15:00 23:00 07:00 15:00 23:00 Intake Total 480 ml 550 ml 350 ml Output Total 300 ml 800 ml Balance 480 ml 550 ml -300 ml -450 ml Intake Oral 480 ml 550 ml 350 ml Output Urine Total 300 ml 800 ml # Voids 4 4 # Bowel Movements 0 Objective Remarks GENERAL: Well-developed, well-nourished, in no acute distress. alert and orientated HEENT: Head is normocephalic without any lesions or masses noted right facial droop. NECK: Trachea midline no deviation. CARDIAC: Regular rhythm, regular rate. S1/S2 are heard. No murmurs gallops or rubs. LUNGS: Clear to auscultation bilaterally. No wheeze, rhonchi or rales. No use of accessory muscles on inspiration or expiration. ABDOMEN: Soft, nontender. Nondistended. Bowel sounds heard in all 4 quadrants. No organomegaly or masses. Negative rebound, negative guarding EXTREMITIES: No edema, pulses are equal bilaterally. No cyanosis or clubbing NEUROLOGY: Mood and affect appear appropriate. Dense right hemiparesis which appears to be improving in the lower extremity. Patient is able to move her right hand second third and fourth digit. 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 Venegas has evaluated the patient. The bleed has been stable on repeat head CT. No surgery needed. Speech therapy has been following the patient continue on soft diet with thin liquids Occupational therapy indicates OT at rehabilitation. Patient will need to continue occupational therapy until discharge Physical therapy indicating PT at rehabilitation. We'll need to continue physical therapy, continue right AFO, Norflex for muscle spasm --trapeze assembly for bed to facilitate functioning --Consulted OT for wheelchair recommendations. Will supply recommendations to case management to provide wheelchair. Right arm pain, controlled Continue Neurontin for right arm neuropathic pain Dysuria, urinary frequency, resolved BNP was performed, sodium level was normal. No signs of central DI Urinalysis was performed which did not indicate any signs of infection Belladonna rectal suppository Hypertension, stable Norvasc 10 mg daily Vasotec, clonidine as needed Alcohol and cocaine abuse dependence patient previously counseled. Status post thiamine Tobacco abuse Counseled on cessation Chronic hepatitis C, chronic Patient with chronic transaminitis continue to follow monthly. liver ultrasound showed fatty infiltration Anxiety. Controlled Seroquel low-dose initiated on 05/27. Bowel regimen Justyna-Colace as needed DVT prophylaxis Sequential compression devices. Discharge Planning Patient has no funding for rehabilitation. Patient was denied SSI. school business manager is following up with [facility] regarding status of applications. Occupational therapy recommends shower bench, 3-1 bedside commode for discharge. PT recommends right AFO. 08/16, case management spoke with patient's mother who states that she'll assist in discharge planning. Awaiting decision from the [facility] in [place] Nov 23, 2016 09:57
[2016-11-23] MEDS ORDERED: WHEEMIS3 (10:00)
[2016-11-23 20:00] VITALS: BP 129/84; PULSE 83; RESP 14; TEMP 99.2; O2SAT 94
[2016-11-23] MEDS: ORPHENADRINE CITRATE 100 MG SUSTAINED RELEASE TAB PO PRN (20:51)
[2016-11-23] MEDS: QUEtiapine FUMARATE 25 MG TAB PO SCH (20:51)
[2016-11-23] MEDS: BELLADONNA ALKALOIDS/OPIUM 60 MG SUPP RECTAL SCH (20:51)
[2016-11-24] MEDS: MAGNESIUM HYDROXIDE SUSP 30 ML CUP PO PRN ×2 (06:42→20:13)
[2016-11-24 08:00] VITALS: BP 121/74; PULSE 78; RESP 16; TEMP 98.2; O2SAT 97
--- NOTE | 2016-11-24 08:28 | HHI.PR ---
Subjective Remarks Patient seen and examined today. Patient denies any new complaints. No change in clinical status. Awaiting case management for discharge planning. Objective Vitals Vital Signs Date Time Temp Pulse Resp B/P Pulse Ox O2 Delivery O2 Flow Rate FiO2 11/23/16 20:00 99.2 83 14 129/84 94 I/O 11/23/16 11/23/16 11/23/16 11/24/16 11/24/16 11/24/16 07:00 15:00 23:00 07:00 15:00 23:00 Intake Total 350 ml 840 ml 800 ml 400 ml Output Total 800 ml 3 ml 900 ml 700 ml Balance -450 ml 837 ml -100 ml -300 ml Intake Oral 350 ml 840 ml 800 ml 400 ml Output Urine Total 800 ml 3 ml 900 ml 700 ml Stool Total 0 ml # Voids 4 3 3 # Bowel Movements 0 0 Objective Remarks GENERAL: Well-developed, well-nourished, in no acute distress. alert and orientated HEENT: Head is normocephalic without any lesions or masses noted right facial droop. NECK: Trachea midline no deviation. CARDIAC: Regular rhythm, regular rate. S1/S2 are heard. No murmurs gallops or rubs. LUNGS: Clear to auscultation bilaterally. No wheeze, rhonchi or rales. No use of accessory muscles on inspiration or expiration. ABDOMEN: Soft, nontender. Nondistended. Bowel sounds heard in all 4 quadrants. No organomegaly or masses. Negative rebound, negative guarding EXTREMITIES: No edema, pulses are equal bilaterally. No cyanosis or clubbing NEUROLOGY: Mood and affect appear appropriate. Dense right hemiparesis which appears to be improving in the lower extremity. Patient is able to move her right hand second third and fourth digit. 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 Venegas has evaluated the patient. The bleed has been stable on repeat head CT. No surgery needed. Speech therapy has been following the patient continue on soft diet with thin liquids Occupational therapy indicates OT at rehabilitation. Patient will need to continue occupational therapy until discharge Physical therapy indicating PT at rehabilitation. We'll need to continue physical therapy, continue right AFO, Norflex for muscle spasm --trapeze assembly for bed to facilitate functioning --Consulted OT for wheelchair recommendations. Supplied recommendations to case management to provide wheelchair. Right arm pain, controlled Continue Neurontin for right arm neuropathic pain Dysuria, urinary frequency, resolved BNP was performed, sodium level was normal. No signs of central DI Urinalysis was performed which did not indicate any signs of infection Belladonna rectal suppository Hypertension, stable Norvasc 10 mg daily Vasotec, clonidine as needed Alcohol and cocaine abuse dependence patient previously counseled. Status post thiamine Tobacco abuse Counseled on cessation Chronic hepatitis C, chronic Patient with chronic transaminitis continue to follow monthly. liver ultrasound showed fatty infiltration Anxiety. Controlled Seroquel low-dose initiated on 05/27. Bowel regimen Justyna-Colace as needed DVT prophylaxis Sequential compression devices. Discharge Planning Patient has no funding for rehabilitation. Patient was denied SSI. manager is following up with [facility] regarding status of applications. Occupational therapy recommends shower bench, 3-1 bedside commode for discharge. PT recommends right AFO. 08/16, case management spoke with patient's mother who states that she'll assist in discharge planning. Awaiting decision from the [place] Nov 24, 2016 08:27
[2016-11-24] MEDS: POTASSIUM CHLORIDE 10 MEQ CONTROLLED RELEASE TAB PO SCH (08:29)
[2016-11-24] MEDS: GABAPENTIN 100 MG CAP PO SCH ×3 (08:29→16:44)
[2016-11-24] MEDS: FAMOTIDINE 20 MG TAB PO SCH ×2 (08:30→20:13)
[2016-11-24 20:00] VITALS: BP 134/86; PULSE 81; RESP 18; TEMP 98.7; O2SAT 95
[2016-11-24] MEDS: QUEtiapine FUMARATE 25 MG TAB PO SCH (20:13)
[2016-11-24] MEDS: BELLADONNA ALKALOIDS/OPIUM 60 MG SUPP RECTAL SCH (20:13)
[2016-11-24] MEDS: ORPHENADRINE CITRATE 100 MG SUSTAINED RELEASE TAB PO PRN (20:13)
[2016-11-25 08:00] VITALS: BP 118/86; PULSE 85; RESP 20; TEMP 97.9; O2SAT 94
[2016-11-25] MEDS: GABAPENTIN 100 MG CAP PO SCH ×3 (08:07→18:03)
[2016-11-25] MEDS: FAMOTIDINE 20 MG TAB PO SCH ×2 (08:07→20:53)
[2016-11-25] MEDS: POTASSIUM CHLORIDE 10 MEQ CONTROLLED RELEASE TAB PO SCH (08:08)
--- NOTE | 2016-11-25 09:39 | HHI.PR ---
Subjective Remarks Patient seen and examined today. Patient denies any new complaints. No change in clinical status. Awaiting case management for discharge planning. Objective Vitals Vital Signs Date Time Temp Pulse Resp B/P Pulse Ox O2 Delivery O2 Flow Rate FiO2 11/24/16 20:00 98.7 81 18 134/86 95 I/O 11/24/16 11/24/16 11/24/16 11/25/16 11/25/16 11/25/16 07:00 15:00 23:00 07:00 15:00 23:00 Intake Total 400 ml 720 ml 640 ml 640 ml Output Total 700 ml Balance -300 ml 720 ml 640 ml 640 ml Intake Oral 400 ml 720 ml 640 ml 640 ml Output Urine Total 700 ml # Voids 3 3 1 3 # Bowel Movements 0 0 0 Objective Remarks GENERAL: Well-developed, well-nourished, in no acute distress. alert and orientated HEENT: Head is normocephalic without any lesions or masses noted right facial droop. NECK: Trachea midline no deviation. CARDIAC: Regular rhythm, regular rate. S1/S2 are heard. No murmurs gallops or rubs. LUNGS: Clear to auscultation bilaterally. No wheeze, rhonchi or rales. No use of accessory muscles on inspiration or expiration. ABDOMEN: Soft, nontender. Nondistended. Bowel sounds heard in all 4 quadrants. No organomegaly or masses. Negative rebound, negative guarding EXTREMITIES: No edema, pulses are equal bilaterally. No cyanosis or clubbing NEUROLOGY: Mood and affect appear appropriate. Dense right hemiparesis which appears to be improving in the lower extremity. Patient is able to move her right hand second third and fourth digit. 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 Venegas has evaluated the patient. The bleed has been stable on repeat head CT. No surgery needed. Speech therapy has been following the patient continue on soft diet with thin liquids Occupational therapy indicates OT at rehabilitation. Patient will need to continue occupational therapy until discharge Physical therapy indicating PT at rehabilitation. We'll need to continue physical therapy, continue right AFO, Norflex for muscle spasm --trapeze assembly for bed to facilitate functioning --Consulted OT for wheelchair recommendations. Supplied recommendations to case management to provide wheelchair. Right arm pain, controlled Continue Neurontin for right arm neuropathic pain Dysuria, urinary frequency, resolved BNP was performed, sodium level was normal. No signs of central DI Urinalysis was performed which did not indicate any signs of infection Belladonna rectal suppository Hypertension, stable Norvasc 10 mg daily Vasotec, clonidine as needed Alcohol and cocaine abuse dependence patient previously counseled. Status post thiamine Tobacco abuse Counseled on cessation Chronic hepatitis C, chronic Patient with chronic transaminitis continue to follow monthly. liver ultrasound showed fatty infiltration Anxiety. Controlled Seroquel low-dose initiated on 05/27. Bowel regimen Justyna-Colace as needed DVT prophylaxis Sequential compression devices. Discharge Planning Patient has no funding for rehabilitation. Patient was denied SSI. online community manager is following up with [facility] regarding status of applications. Occupational therapy recommends shower bench, 3-1 bedside commode for discharge. PT recommends right AFO. 08/16, case management spoke with patient's mother who states that she'll assist in discharge planning. Awaiting decision from the [facility] Nov 25, 2016 09:39
[2016-11-25 20:00] VITALS: BP 126/78; PULSE 84; RESP 18; TEMP 97.1; O2SAT 96
[2016-11-25] MEDS: QUEtiapine FUMARATE 25 MG TAB PO SCH (20:53)
[2016-11-25] MEDS: BELLADONNA ALKALOIDS/OPIUM 60 MG SUPP RECTAL SCH (20:53)
[2016-11-26 08:00] VITALS: BP 144/77; PULSE 79; RESP 18; TEMP 97.5; O2SAT 97
[2016-11-26] MEDS: GABAPENTIN 100 MG CAP PO SCH ×3 (08:28→17:50)
[2016-11-26] MEDS: POTASSIUM CHLORIDE 10 MEQ CONTROLLED RELEASE TAB PO SCH (08:28)
[2016-11-26] MEDS: FAMOTIDINE 20 MG TAB PO SCH ×2 (08:28→21:11)
--- NOTE | 2016-11-26 10:16 | HHI.PR ---
Subjective Remarks Patient seen and examined today. Patient denies any new complaints. No change in clinical status. Awaiting case management discharge planning. Objective Vitals Vital Signs Date Time Temp Pulse Resp B/P Pulse Ox O2 Delivery O2 Flow Rate FiO2 11/26/16 08:00 97.5 79 18 144/77 97 11/25/16 20:00 97.1 84 18 126/78 96 I/O 11/25/16 11/25/16 11/25/16 11/26/16 11/26/16 11/26/16 07:00 15:00 23:00 07:00 15:00 23:00 Intake Total 640 ml 1000 ml 420 ml Balance 640 ml 1000 ml 420 ml Intake Oral 640 ml 1000 ml 420 ml # Voids 3 4 7 # Bowel Movements 0 1 0 Objective Remarks GENERAL: Well-developed, well-nourished, in no acute distress. alert and orientated HEENT: Head is normocephalic without any lesions or masses noted right facial droop. NECK: Trachea midline no deviation. CARDIAC: Regular rhythm, regular rate. S1/S2 are heard. No murmurs gallops or rubs. LUNGS: Clear to auscultation bilaterally. No wheeze, rhonchi or rales. No use of accessory muscles on inspiration or expiration. ABDOMEN: Soft, nontender. Nondistended. Bowel sounds heard in all 4 quadrants. No organomegaly or masses. Negative rebound, negative guarding EXTREMITIES: No edema, pulses are equal bilaterally. No cyanosis or clubbing NEUROLOGY: Mood and affect appear appropriate. Dense right hemiparesis which appears to be improving in the lower extremity. Patient is able to move her right hand second third and fourth digit. 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 Venegas has evaluated the patient. The bleed has been stable on repeat head CT. No surgery needed. Speech therapy has been following the patient continue on soft diet with thin liquids Occupational therapy indicates OT at rehabilitation. Patient will need to continue occupational therapy until discharge Physical therapy indicating PT at rehabilitation. We'll need to continue physical therapy, continue right AFO, Norflex for muscle spasm --trapeze assembly for bed to facilitate functioning --Consulted OT for wheelchair recommendations. Supplied recommendations to case management to provide wheelchair. Right arm pain, controlled Continue Neurontin for right arm neuropathic pain Dysuria, urinary frequency, resolved BNP was performed, sodium level was normal. No signs of central DI Urinalysis was performed which did not indicate any signs of infection Belladonna rectal suppository Hypertension, stable Norvasc 10 mg daily Vasotec, clonidine as needed Alcohol and cocaine abuse dependence patient previously counseled. Status post thiamine Tobacco abuse Counseled on cessation Chronic hepatitis C, chronic Patient with chronic transaminitis continue to follow monthly. liver ultrasound showed fatty infiltration Anxiety. Controlled Seroquel low-dose initiated on 05/27. Bowel regimen Justyna-Colace as needed DVT prophylaxis Sequential compression devices. Discharge Planning Patient has no funding for rehabilitation. Patient was denied SSI. assistant produce manager is following up with [facility] regarding status of applications. Occupational therapy recommends shower bench, 3-1 bedside commode for discharge. PT recommends right AFO. 08/16, case management spoke with patient's mother who states that she'll assist in discharge planning. Awaiting decision from the [place] Nov 26, 2016 10:16
[2016-11-26 20:50] VITALS: BP 131/83; PULSE 84; RESP 20; TEMP 96.9; O2SAT 96
[2016-11-26] MEDS: ORPHENADRINE CITRATE 100 MG SUSTAINED RELEASE TAB PO PRN (21:11)
[2016-11-26] MEDS: BELLADONNA ALKALOIDS/OPIUM 60 MG SUPP RECTAL SCH (21:11)
[2016-11-26] MEDS: QUEtiapine FUMARATE 25 MG TAB PO SCH (21:12)
[2016-11-27 08:00] VITALS: BP 133/81; PULSE 75; RESP 18; TEMP 96.9; O2SAT 95
[2016-11-27] MEDS: GABAPENTIN 100 MG CAP PO SCH ×3 (08:23→16:26)
[2016-11-27] MEDS: POTASSIUM CHLORIDE 10 MEQ CONTROLLED RELEASE TAB PO SCH (08:24)
[2016-11-27] MEDS: FAMOTIDINE 20 MG TAB PO SCH ×2 (08:24→20:55)
--- NOTE | 2016-11-27 11:30 | HHI.PR ---
Subjective Remarks Patient seen and examined today. Patient denies any new complaints. No change in clinical status. Awaiting case management for discharge planning. Objective Vitals Vital Signs Date Time Temp Pulse Resp B/P Pulse Ox O2 Delivery O2 Flow Rate FiO2 11/27/16 08:00 96.9 75 18 133/81 95 11/26/16 20:50 96.9 84 20 131/83 96 I/O 11/26/16 11/26/16 11/26/16 11/27/16 11/27/16 11/27/16 07:00 15:00 23:00 07:00 15:00 23:00 Intake Total 420 ml 940 ml Output Total 300 ml 200 ml Balance 420 ml 940 ml -300 ml -200 ml Intake Oral 420 ml 940 ml Output Urine Total 300 ml 200 ml # Voids 7 2 # Bowel Movements 0 1 0 0 Objective Remarks GENERAL: Well-developed, well-nourished, in no acute distress. alert and orientated HEENT: Head is normocephalic without any lesions or masses noted right facial droop. NECK: Trachea midline no deviation. CARDIAC: Regular rhythm, regular rate. S1/S2 are heard. No murmurs gallops or rubs. LUNGS: Clear to auscultation bilaterally. No wheeze, rhonchi or rales. No use of accessory muscles on inspiration or expiration. ABDOMEN: Soft, nontender. Nondistended. Bowel sounds heard in all 4 quadrants. No organomegaly or masses. Negative rebound, negative guarding EXTREMITIES: No edema, pulses are equal bilaterally. No cyanosis or clubbing NEUROLOGY: Mood and affect appear appropriate. Dense right hemiparesis which appears to be improving in the lower extremity. Patient is able to move her right hand second third and fourth digit. 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 Venegas has evaluated the patient. The bleed has been stable on repeat head CT. No surgery needed. Speech therapy has been following the patient continue on soft diet with thin liquids Occupational therapy indicates OT at rehabilitation. Patient will need to continue occupational therapy until discharge Physical therapy indicating PT at rehabilitation. We'll need to continue physical therapy, continue right AFO, Norflex for muscle spasm --trapeze assembly for bed to facilitate functioning --Consulted OT for wheelchair recommendations. Supplied recommendations to case management to provide wheelchair. Right arm pain, controlled Continue Neurontin for right arm neuropathic pain Dysuria, urinary frequency, resolved BNP was performed, sodium level was normal. No signs of central DI Urinalysis was performed which did not indicate any signs of infection Belladonna rectal suppository Hypertension, stable Norvasc 10 mg daily Vasotec, clonidine as needed Alcohol and cocaine abuse dependence patient previously counseled. Status post thiamine Tobacco abuse Counseled on cessation Chronic hepatitis C, chronic Patient with chronic transaminitis continue to follow monthly. liver ultrasound showed fatty infiltration Anxiety. Controlled Seroquel low-dose initiated on 05/27. Bowel regimen Justyna-Colace as needed DVT prophylaxis Sequential compression devices. Discharge Planning Patient has no funding for rehabilitation. Patient was denied SSI. medical affairs manager is following up with [facility] regarding status of applications. Occupational therapy recommends shower bench, 3-1 bedside commode for discharge. PT recommends right AFO. 08/16, case management spoke with patient's mother who states that she'll assist in discharge planning. Awaiting decision from the [place] Nov 27, 2016 11:30
[2016-11-27 20:00] VITALS: BP 104/80; PULSE 82; RESP 20; TEMP 98.2; O2SAT 96
[2016-11-27] MEDS: BELLADONNA ALKALOIDS/OPIUM 60 MG SUPP RECTAL SCH (20:55)
[2016-11-27] MEDS: ORPHENADRINE CITRATE 100 MG SUSTAINED RELEASE TAB PO PRN (20:56)
[2016-11-27] MEDS: QUEtiapine FUMARATE 25 MG TAB PO SCH (20:56)
[2016-11-28 08:00] VITALS: BP 140/82; PULSE 79; RESP 18; TEMP 97; O2SAT 96
[2016-11-28] MEDS: GABAPENTIN 100 MG CAP PO SCH ×3 (09:22→18:15)
[2016-11-28] MEDS: FAMOTIDINE 20 MG TAB PO SCH ×2 (09:22→21:03)
[2016-11-28] MEDS: POTASSIUM CHLORIDE 10 MEQ CONTROLLED RELEASE TAB PO SCH (09:22)
--- NOTE | 2016-11-28 10:22 | HHI.PR ---
Subjective Remarks Patient seen and examined today. Patient denies any new complaints. No change in clinical status. Awaiting case management for discharge planning. Objective Vitals Vital Signs Date Time Temp Pulse Resp B/P Pulse Ox O2 Delivery O2 Flow Rate FiO2 11/28/16 08:00 97.0 79 18 140/82 96 11/27/16 20:00 98.2 82 20 104/80 96 I/O 11/27/16 11/27/16 11/27/16 11/28/16 11/28/16 11/28/16 07:00 15:00 23:00 07:00 15:00 23:00 Intake Total 480 ml 480 ml 480 ml Output Total 200 ml Balance -200 ml 480 ml 480 ml 480 ml Intake Oral 480 ml 480 ml 480 ml Output Urine Total 200 ml # Voids 5 1 2 # Bowel Movements 0 0 0 0 Objective Remarks GENERAL: Well-developed, well-nourished, in no acute distress. alert and orientated HEENT: Head is normocephalic without any lesions or masses noted right facial droop. NECK: Trachea midline no deviation. CARDIAC: Regular rhythm, regular rate. S1/S2 are heard. No murmurs gallops or rubs. LUNGS: Clear to auscultation bilaterally. No wheeze, rhonchi or rales. No use of accessory muscles on inspiration or expiration. ABDOMEN: Soft, nontender. Nondistended. Bowel sounds heard in all 4 quadrants. No organomegaly or masses. Negative rebound, negative guarding EXTREMITIES: No edema, pulses are equal bilaterally. No cyanosis or clubbing NEUROLOGY: Mood and affect appear appropriate. Dense right hemiparesis which appears to be improving in the lower extremity. Patient is able to move her right hand second third and fourth digit. 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 Venegas has evaluated the patient. The bleed has been stable on repeat head CT. No surgery needed. Speech therapy has been following the patient continue on soft diet with thin liquids Occupational therapy indicates OT at rehabilitation. Patient will need to continue occupational therapy until discharge Physical therapy indicating PT at rehabilitation. We'll need to continue physical therapy, continue right AFO, Norflex for muscle spasm --trapeze assembly for bed to facilitate functioning --Consulted OT for wheelchair recommendations. Supplied recommendations to case management to provide wheelchair. Right arm pain, controlled Continue Neurontin for right arm neuropathic pain Dysuria, urinary frequency, resolved BNP was performed, sodium level was normal. No signs of central DI Urinalysis was performed which did not indicate any signs of infection Belladonna rectal suppository Hypertension, stable Norvasc 10 mg daily Vasotec, clonidine as needed Alcohol and cocaine abuse dependence patient previously counseled. Status post thiamine Tobacco abuse Counseled on cessation Chronic hepatitis C, chronic Patient with chronic transaminitis continue to follow monthly. liver ultrasound showed fatty infiltration Anxiety. Controlled Seroquel low-dose initiated on 05/27. Bowel regimen Justyna-Colace as needed DVT prophylaxis Sequential compression devices. Discharge Planning Patient has no funding for rehabilitation. Patient was denied SSI. geotechnical department manager is following up with [facility] regarding status of applications. Occupational therapy recommends shower bench, 3-1 bedside commode for discharge. PT recommends right AFO. 08/16, case management spoke with patient's mother who states that she'll assist in discharge planning. Awaiting decision from the [place] Nov 28, 2016 10:22
[2016-11-28 20:00] VITALS: BP 122/79; PULSE 82; RESP 20; TEMP 98.2; O2SAT 96
[2016-11-28] MEDS: QUEtiapine FUMARATE 25 MG TAB PO SCH (21:03)
[2016-11-28] MEDS: BELLADONNA ALKALOIDS/OPIUM 60 MG SUPP RECTAL SCH (21:03)
[2016-11-28] MEDS: ORPHENADRINE CITRATE 100 MG SUSTAINED RELEASE TAB PO PRN (21:03)
[2016-11-29 08:00] VITALS: BP 128/70; PULSE 80; RESP 18; TEMP 96.8; O2SAT 95
[2016-11-29] MEDS: POTASSIUM CHLORIDE 10 MEQ CONTROLLED RELEASE TAB PO SCH (09:11)
[2016-11-29] MEDS: FAMOTIDINE 20 MG TAB PO SCH ×2 (09:11→20:07)
[2016-11-29] MEDS: GABAPENTIN 100 MG CAP PO SCH ×3 (09:11→16:49)
--- NOTE | 2016-11-29 09:25 | HHI.PR ---
Subjective Remarks Patient seen and examined today. Patient denies any new complaints. No change in clinical status. Awaiting case management discharge planning. Still awaiting case management to arrange for wheelchair. Patient will likely be able to function at home in a wheelchair before she will be able to ambulate out of the hospital or get finding to go to a rehabilitation facility Objective Vitals Vital Signs Date Time Temp Pulse Resp B/P Pulse Ox O2 Delivery O2 Flow Rate FiO2 11/28/16 20:00 98.2 82 20 122/79 96 I/O 11/28/16 11/28/16 11/28/16 11/29/16 11/29/16 11/29/16 07:00 15:00 23:00 07:00 15:00 23:00 Intake Total 480 ml 480 ml 480 ml 240 ml Balance 480 ml 480 ml 480 ml 240 ml Intake Oral 480 ml 480 ml 480 ml 240 ml # Voids 2 2 2 1 # Bowel Movements 0 0 0 0 Objective Remarks GENERAL: Well-developed, well-nourished, in no acute distress. alert and orientated HEENT: Head is normocephalic without any lesions or masses noted right facial droop. NECK: Trachea midline no deviation. CARDIAC: Regular rhythm, regular rate. S1/S2 are heard. No murmurs gallops or rubs. LUNGS: Clear to auscultation bilaterally. No wheeze, rhonchi or rales. No use of accessory muscles on inspiration or expiration. ABDOMEN: Soft, nontender. Nondistended. Bowel sounds heard in all 4 quadrants. No organomegaly or masses. Negative rebound, negative guarding EXTREMITIES: No edema, pulses are equal bilaterally. No cyanosis or clubbing NEUROLOGY: Mood and affect appear appropriate. Dense right hemiparesis which appears to be improving in the lower extremity. Patient is able to move her right hand second third and fourth digit. 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 Venegas has evaluated the patient. The bleed has been stable on repeat head CT. No surgery needed. Speech therapy has been following the patient continue on soft diet with thin liquids Occupational therapy indicates OT at rehabilitation. Patient will need to continue occupational therapy until discharge Physical therapy indicating PT at rehabilitation. We'll need to continue physical therapy, continue right AFO, Norflex for muscle spasm --trapeze assembly for bed to facilitate functioning --Consulted OT for wheelchair recommendations. Supplied recommendations to case management to provide wheelchair. Patient will likely be able to use a wheelchair and be discharged prior to ambulating at a hospital or finding available for rehabilitation Right arm pain, controlled Continue Neurontin for right arm neuropathic pain Dysuria, urinary frequency, resolved BNP was performed, sodium level was normal. No signs of central DI Urinalysis was performed which did not indicate any signs of infection Belladonna rectal suppository Hypertension, stable Norvasc 10 mg daily Vasotec, clonidine as needed Alcohol and cocaine abuse dependence patient previously counseled. Status post thiamine Tobacco abuse Counseled on cessation Chronic hepatitis C, chronic Patient with chronic transaminitis continue to follow monthly. liver ultrasound showed fatty infiltration Anxiety. Controlled Seroquel low-dose initiated on 05/27. Bowel regimen Justyna-Colace as needed DVT prophylaxis Sequential compression devices. Discharge Planning Patient has no funding for rehabilitation. Patient was denied SSI. drilling manager is following up with [facility] regarding status of applications. Occupational therapy recommends shower bench, 3-1 bedside commode for discharge. PT recommends right AFO. 08/16, case management spoke with patient's mother who states that she'll assist in discharge planning. Awaiting decision from the [facility] in [place] Jaycob Rebolledo Nov 29, 2016 09:25
[2016-11-29 20:00] VITALS: BP 111/79; PULSE 78; RESP 18; TEMP 96.8; O2SAT 94
[2016-11-29] MEDS: QUEtiapine FUMARATE 25 MG TAB PO SCH (20:07)
[2016-11-29] MEDS: BELLADONNA ALKALOIDS/OPIUM 60 MG SUPP RECTAL SCH (20:07)
[2016-11-30 08:00] VITALS: BP 117/78; PULSE 84; RESP 20; TEMP 96.9; O2SAT 95
[2016-11-30] MEDS: FAMOTIDINE 20 MG TAB PO SCH ×2 (09:10→20:49)
[2016-11-30] MEDS: GABAPENTIN 100 MG CAP PO SCH ×3 (09:10→17:27)
[2016-11-30] MEDS: POTASSIUM CHLORIDE 10 MEQ CONTROLLED RELEASE TAB PO SCH (09:10)
--- NOTE | 2016-11-30 13:37 | HHI.PR ---
Subjective Remarks No acute complaints. No change in clinical status. Objective Vitals Vital Signs Date Time Temp Pulse Resp B/P Pulse Ox O2 Delivery O2 Flow Rate FiO2 11/30/16 08:00 96.9 84 20 117/78 95 11/29/16 20:00 96.8 78 18 111/79 94 11/29/16 20:00 96.8 78 18 111/79 94 I/O 11/29/16 11/29/16 11/29/16 11/30/16 11/30/16 11/30/16 07:00 15:00 23:00 07:00 15:00 23:00 Intake Total 240 ml 720 ml 960 ml Balance 240 ml 720 ml 960 ml Intake Oral 240 ml 720 ml 960 ml # Voids 1 4 6 # Bowel Movements 0 0 Objective Remarks GENERAL: Thin patient in no apparent distress. CARDIOVASCULAR: Regular rate and rhythm. RESPIRATORY: CTAB. GASTROINTESTINAL: Abdomen soft, nontender, non-distended. NEUROLOGICAL: Awake and alert. PSYCHIATRIC: Insight and judgment normal. 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 (2) Hemiparesis affecting right side as late effect of cerebrovascular accident (CVA) ICD Code: I69.351 Status: Chronic (3) Shortness of breath ICD Code: R06.02 Status: Resolved (4) Fever ICD Code: R50.9 Status: Resolved (5) Abdominal pain ICD Code: R10.9 Status: Resolved (6) Hypertensive emergency ICD Code: I10 Status: Resolved (7) Metabolic acidosis ICD Code: E87.2 Status: Resolved (8) UTI (urinary tract infection) ICD Code: N39.0 Status: Resolved (9) Vaginal discharge ICD Code: N89.8 Status: Resolved (10) Increased urinary frequency ICD Code: R35.0 Status: Resolved Assessment and Plan 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 Venegas has evaluated the patient. The bleed has been stable on repeat head CT. No surgery needed. Speech therapy indicated soft diet with thin liquids Occupational therapy indicates OT at rehabilitation. Patient will need to continue occupational therapy until discharge Physical therapy indicating PT at rehabilitation. We'll need to continue physical therapy, continue right AFO. Norflex for muscle spasms Abdominal pain: Resolved Leukocytosis resolved CT scan did not indicate any abnormality SOB: Resolved. Chest x-ray without acute abnormality. 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 No signs of central DI Urinalysis was performed which did not indicate any signs of infection Continue Belladonna rectal suppository Hypertension: Controlled Norvasc 10 mg daily Vasotec, clonidine as needed Monitor BP Hypokalemia: Resolved. Patient is on potassium replacement Monitor BMP as needed Alcohol and cocaine abuse dependence patient previously counseled. Status post thiamine Tobacco abuse Counseled on cessation Chronic hepatitis C, chronic Patient with chronic transaminitis continue to follow monthly. 11/05 AST and ALT improved from prior LFTs. Liver ultrasound showed fatty infiltration Anxiety: Controlled Seroquel low-dose initiated on 05/27. Bowel regimen: Justyna-Colace, magnesium hydroxide as needed. DVT prophylaxis Sequential compression devices. Discharge Planning Occupational therapy recommends shower bench, 3-1 bedside commode for discharge. PT recommends right AFO. CM working on placement. Elisabeth Church Nov 30, 2016 13:37
[2016-11-30 20:00] VITALS: BP 119/81; PULSE 84; RESP 18; TEMP 98.3; O2SAT 95
[2016-11-30] MEDS: QUEtiapine FUMARATE 25 MG TAB PO SCH (20:49)
[2016-11-30] MEDS: BELLADONNA ALKALOIDS/OPIUM 60 MG SUPP RECTAL SCH (20:49)
[2016-12-01 08:00] VITALS: BP 122/82; PULSE 80; RESP 20; TEMP 97.9; O2SAT 95
[2016-12-01] MEDS: FAMOTIDINE 20 MG TAB PO SCH ×2 (09:05→21:41)
[2016-12-01] MEDS: POTASSIUM CHLORIDE 10 MEQ CONTROLLED RELEASE TAB PO SCH (09:05)
[2016-12-01] MEDS: GABAPENTIN 100 MG CAP PO SCH ×3 (09:05→17:44)
--- NOTE | 2016-12-01 12:13 | HHI.PR ---
Subjective Remarks No acute complaints. No change in clinical status. Objective Vitals Vital Signs Date Time Temp Pulse Resp B/P Pulse Ox O2 Delivery O2 Flow Rate FiO2 12/01/16 08:00 97.9 80 20 122/82 95 11/30/16 20:00 98.3 84 18 119/81 95 I/O 11/30/16 11/30/16 11/30/16 12/01/16 12/01/16 12/01/16 07:00 15:00 23:00 07:00 15:00 23:00 Intake Total 960 ml 900 ml 160 ml 240 ml Balance 960 ml 900 ml 160 ml 240 ml Intake Oral 960 ml 900 ml 160 ml 240 ml # Voids 6 5 2 3 # Bowel Movements 0 1 0 Objective Remarks GENERAL: Thin patient in no apparent distress. CARDIOVASCULAR: Regular rate and rhythm. RESPIRATORY: CTAB. GASTROINTESTINAL: Abdomen soft, nontender, non-distended. NEUROLOGICAL: Awake and alert. PSYCHIATRIC: Insight and judgment normal. 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 (2) Hemiparesis affecting right side as late effect of cerebrovascular accident (CVA) ICD Code: I69.351 Status: Chronic (3) Shortness of breath ICD Code: R06.02 Status: Resolved (4) Fever ICD Code: R50.9 Status: Resolved (5) Abdominal pain ICD Code: R10.9 Status: Resolved (6) Hypertensive emergency ICD Code: I10 Status: Resolved (7) Metabolic acidosis ICD Code: E87.2 Status: Resolved (8) UTI (urinary tract infection) ICD Code: N39.0 Status: Resolved (9) Vaginal discharge ICD Code: N89.8 Status: Resolved (10) Increased urinary frequency ICD Code: R35.0 Status: Resolved Assessment and Plan 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 Venegas has evaluated the patient. The bleed has been stable on repeat head CT. No surgery needed. Speech therapy indicated soft diet with thin liquids Occupational therapy indicates OT at rehabilitation. Patient will need to continue occupational therapy until discharge Physical therapy indicating PT at rehabilitation. We'll need to continue physical therapy, continue right AFO. Norflex for muscle spasms Abdominal pain: Resolved Leukocytosis resolved CT scan did not indicate any abnormality SOB: Resolved. Chest x-ray without acute abnormality. 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 No signs of central DI Urinalysis was performed which did not indicate any signs of infection Continue Belladonna rectal suppository Hypertension: Controlled Norvasc 10 mg daily Vasotec, clonidine as needed Monitor BP Hypokalemia: Resolved. Patient is on potassium replacement Monitor BMP as needed Alcohol and cocaine abuse dependence patient previously counseled. Status post thiamine Tobacco abuse Counseled on cessation Chronic hepatitis C, chronic Patient with chronic transaminitis continue to follow monthly. 11/05 AST and ALT improved from prior LFTs. Liver ultrasound showed fatty infiltration Anxiety: Controlled Seroquel low-dose initiated on 05/27. Bowel regimen: Justyna-Colace, magnesium hydroxide as needed. DVT prophylaxis Sequential compression devices. Discharge Planning Occupational therapy recommends shower bench, 3-1 bedside commode for discharge. PT recommends right AFO. CM working on placement. Elisabeth Church Dec 01, 2016 12:13
[2016-12-01 20:00] VITALS: BP 114/87; PULSE 89; RESP 20; TEMP 98.1; O2SAT 97
[2016-12-01] MEDS: QUEtiapine FUMARATE 25 MG TAB PO SCH (21:41)
[2016-12-01] MEDS: BELLADONNA ALKALOIDS/OPIUM 60 MG SUPP RECTAL SCH (21:42)
[2016-12-02] MEDS: GABAPENTIN 100 MG CAP PO SCH ×3 (08:23→17:14)
[2016-12-02] MEDS: FAMOTIDINE 20 MG TAB PO SCH ×2 (08:23→20:38)
[2016-12-02] MEDS: POTASSIUM CHLORIDE 10 MEQ CONTROLLED RELEASE TAB PO SCH (08:23)
[2016-12-02 09:19] VITALS: BP 118/88; PULSE 81; RESP 16; TEMP 98; O2SAT 96
--- NOTE | 2016-12-02 12:29 | HHI.PR ---
Subjective Remarks No acute complaints. No change in clinical status. Objective Vitals Vital Signs Date Time Temp Pulse Resp B/P Pulse Ox O2 Delivery O2 Flow Rate FiO2 12/02/16 09:19 98.0 81 16 118/88 96 12/01/16 20:00 98.1 89 20 114/87 97 I/O 12/01/16 12/01/16 12/01/16 12/02/16 12/02/16 12/02/16 07:00 15:00 23:00 07:00 15:00 23:00 Intake Total 240 ml 1140 ml 930 ml 220 ml Balance 240 ml 1140 ml 930 ml 220 ml Intake Oral 240 ml 1140 ml 930 ml 220 ml # Voids 3 3 3 2 # Bowel Movements 0 0 0 Objective Remarks GENERAL: Thin patient in no apparent distress. CARDIOVASCULAR: Regular rate and rhythm. RESPIRATORY: CTAB. GASTROINTESTINAL: Abdomen soft, nontender, non-distended. NEUROLOGICAL: Awake and alert. PSYCHIATRIC: Insight and judgment normal. 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 (2) Hemiparesis affecting right side as late effect of cerebrovascular accident (CVA) ICD Code: I69.351 Status: Chronic (3) Shortness of breath ICD Code: R06.02 Status: Resolved (4) Fever ICD Code: R50.9 Status: Resolved (5) Abdominal pain ICD Code: R10.9 Status: Resolved (6) Hypertensive emergency ICD Code: I10 Status: Resolved (7) Metabolic acidosis ICD Code: E87.2 Status: Resolved (8) UTI (urinary tract infection) ICD Code: N39.0 Status: Resolved (9) Vaginal discharge ICD Code: N89.8 Status: Resolved (10) Increased urinary frequency ICD Code: R35.0 Status: Resolved Assessment and Plan Left basal ganglia bleed with 4mm MLS with dense Right hemiparesis, stable secondary to cocaine and uncontrolled hypertension Neurosurgery, Dr. Venegas has evaluated the patient. The bleed has been stable on repeat head CT. No surgery needed. Speech therapy indicated soft diet with thin liquids Occupational therapy indicates OT at rehabilitation. Patient will need to continue occupational therapy until discharge Physical therapy indicating PT at rehabilitation. We'll need to continue physical therapy, continue right AFO. Norflex for muscle spasms Abdominal pain: Resolved Leukocytosis resolved CT scan did not indicate any abnormality SOB: Resolved. Chest x-ray without acute abnormality. 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 No signs of central DI Urinalysis was performed which did not indicate any signs of infection Continue Belladonna rectal suppository Hypertension: Controlled Norvasc 10 mg daily Vasotec, clonidine as needed Monitor BP Hypokalemia: Resolved. Patient is on potassium replacement Monitor BMP as needed Alcohol and cocaine abuse dependence patient previously counseled. Status post thiamine Tobacco abuse Counseled on cessation Chronic hepatitis C, chronic Patient with chronic transaminitis continue to follow monthly. 11/05 AST and ALT improved from prior LFTs. Liver ultrasound showed fatty infiltration Anxiety: Controlled Seroquel low-dose initiated on 05/27. Bowel regimen: Justyna-Colace, magnesium hydroxide as needed. DVT prophylaxis Sequential compression devices. Discharge Planning Occupational therapy recommends shower bench, 3-1 bedside commode for discharge. PT recommends right AFO. CM working on placement. Elisabeth Church Dec 02, 2016 12:29
[2016-12-02 20:00] VITALS: BP 137/91; PULSE 85; RESP 18; TEMP 99.6; O2SAT 94
[2016-12-02] MEDS: QUEtiapine FUMARATE 25 MG TAB PO SCH (20:38)
[2016-12-02] MEDS: BELLADONNA ALKALOIDS/OPIUM 60 MG SUPP RECTAL SCH (20:38)
[2016-12-03] MEDS: POTASSIUM CHLORIDE 10 MEQ CONTROLLED RELEASE TAB PO SCH (08:46)
[2016-12-03] MEDS: GABAPENTIN 100 MG CAP PO SCH ×3 (08:46→18:19)
[2016-12-03] MEDS: FAMOTIDINE 20 MG TAB PO SCH ×2 (08:46→20:44)
[2016-12-03 09:07] VITALS: BP 114/78; PULSE 88; RESP 15; TEMP 97.6; O2SAT 93
--- NOTE | 2016-12-03 09:25 | HHI.PR ---
Subjective Remarks No acute complaints. No change in clinical status. Objective Vitals Vital Signs Date Time Temp Pulse Resp B/P Pulse Ox O2 Delivery O2 Flow Rate FiO2 12/03/16 09:07 97.6 88 15 114/78 93 12/02/16 20:00 99.6 85 18 137/91 94 I/O 12/02/16 12/02/16 12/02/16 12/03/16 12/03/16 12/03/16 07:00 15:00 23:00 07:00 15:00 23:00 Intake Total 220 ml 1420 ml 220 ml Balance 220 ml 1420 ml 220 ml Intake Oral 220 ml 1420 ml 220 ml # Voids 2 5 # Bowel Movements 0 0 0 Objective Remarks GENERAL: Thin patient in no apparent distress. CARDIOVASCULAR: Regular rate and rhythm. RESPIRATORY: CTAB. GASTROINTESTINAL: Abdomen soft, nontender, non-distended. NEUROLOGICAL: Awake and alert. PSYCHIATRIC: Insight and judgment normal. 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 (2) Hemiparesis affecting right side as late effect of cerebrovascular accident (CVA) ICD Code: I69.351 Status: Chronic (3) Shortness of breath ICD Code: R06.02 Status: Resolved (4) Fever ICD Code: R50.9 Status: Resolved (5) Abdominal pain ICD Code: R10.9 Status: Resolved (6) Hypertensive emergency ICD Code: I10 Status: Resolved (7) Metabolic acidosis ICD Code: E87.2 Status: Resolved (8) UTI (urinary tract infection) ICD Code: N39.0 Status: Resolved (9) Vaginal discharge ICD Code: N89.8 Status: Resolved (10) Increased urinary frequency ICD Code: R35.0 Status: Resolved Assessment and Plan Left basal ganglia bleed with 4mm MLS with dense Right hemiparesis, stable secondary to cocaine and uncontrolled hypertension Neurosurgery, Dr. Venegas has evaluated the patient. The bleed has been stable on repeat head CT. No surgery needed. Speech therapy indicated soft diet with thin liquids Occupational therapy indicates OT at rehabilitation. Patient will need to continue occupational therapy until discharge Physical therapy indicating PT at rehabilitation. We'll need to continue physical therapy, continue right AFO. Norflex for muscle spasms Abdominal pain: Resolved Leukocytosis resolved CT scan did not indicate any abnormality SOB: Resolved. Chest x-ray without acute abnormality. 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 No signs of central DI Urinalysis was performed which did not indicate any signs of infection Continue Belladonna rectal suppository Hypertension: Controlled Norvasc 10 mg daily Vasotec, clonidine as needed Monitor BP Hypokalemia: Resolved. Patient is on potassium replacement Monitor BMP as needed Alcohol and cocaine abuse dependence patient previously counseled. Status post thiamine Tobacco abuse Counseled on cessation Chronic hepatitis C, chronic Patient with chronic transaminitis continue to follow monthly. 11/05 AST and ALT improved from prior LFTs. Liver ultrasound showed fatty infiltration Anxiety: Controlled Seroquel low-dose initiated on 05/27. Bowel regimen: Justyna-Colace, magnesium hydroxide as needed. DVT prophylaxis Sequential compression devices. Discharge Planning Occupational therapy recommends shower bench, 3-1 bedside commode for discharge. PT recommends right AFO. CM working on placement. Elisabeth Church Dec 03, 2016 09:25
[2016-12-03 20:00] VITALS: BP 135/84; PULSE 85; RESP 20; TEMP 97.7; O2SAT 96
[2016-12-03] MEDS: ORPHENADRINE CITRATE 100 MG SUSTAINED RELEASE TAB PO PRN (20:44)
[2016-12-03] MEDS: BELLADONNA ALKALOIDS/OPIUM 60 MG SUPP RECTAL SCH (20:44)
[2016-12-03] MEDS: QUEtiapine FUMARATE 25 MG TAB PO SCH (20:44)
[2016-12-04 08:00] VITALS: BP 121/82; PULSE 79; RESP 16; TEMP 98.8; O2SAT 94
[2016-12-04] MEDS: FAMOTIDINE 20 MG TAB PO SCH ×2 (08:34→21:26)
[2016-12-04] MEDS: GABAPENTIN 100 MG CAP PO SCH ×3 (08:34→17:50)
[2016-12-04] MEDS: POTASSIUM CHLORIDE 10 MEQ CONTROLLED RELEASE TAB PO SCH (08:34)
--- NOTE | 2016-12-04 09:38 | HHI.PR ---
Subjective Remarks No acute complaints. Physical therapist informed me yesterday that the patient was participating well in therapy and patient states she likes it and appears motivated. Objective Vitals Vital Signs Date Time Temp Pulse Resp B/P Pulse Ox O2 Delivery O2 Flow Rate FiO2 12/03/16 20:00 97.7 85 20 135/84 96 I/O 12/03/16 12/03/16 12/03/16 12/04/16 12/04/16 12/04/16 07:00 15:00 23:00 07:00 15:00 23:00 Intake Total 220 ml 1000 ml 100 ml Output Total 300 ml Balance 220 ml 1000 ml -200 ml Intake Oral 220 ml 1000 ml 100 ml Output Urine Total 300 ml # Voids 4 5 # Bowel Movements 0 0 Objective Remarks GENERAL: Thin patient in no apparent distress. CARDIOVASCULAR: Regular rate and rhythm. RESPIRATORY: CTAB. GASTROINTESTINAL: Abdomen soft, nontender, non-distended. NEUROLOGICAL: Awake and alert. PSYCHIATRIC: Insight and judgment normal. 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 (2) Hemiparesis affecting right side as late effect of cerebrovascular accident (CVA) ICD Code: I69.351 Status: Chronic (3) Shortness of breath ICD Code: R06.02 Status: Resolved (4) Fever ICD Code: R50.9 Status: Resolved (5) Abdominal pain ICD Code: R10.9 Status: Resolved (6) Hypertensive emergency ICD Code: I10 Status: Resolved (7) Metabolic acidosis ICD Code: E87.2 Status: Resolved (8) UTI (urinary tract infection) ICD Code: N39.0 Status: Resolved (9) Vaginal discharge ICD Code: N89.8 Status: Resolved (10) Increased urinary frequency ICD Code: R35.0 Status: Resolved Assessment and Plan Left basal ganglia bleed with 4mm MLS with dense Right hemiparesis, stable secondary to cocaine and uncontrolled hypertension Neurosurgery, Dr. Venegas has evaluated the patient. The bleed has been stable on repeat head CT. No surgery needed. Speech therapy indicated soft diet with thin liquids Occupational therapy indicates OT at rehabilitation. Patient will need to continue occupational therapy until discharge Physical therapy indicating PT at rehabilitation. We'll need to continue physical therapy, continue right AFO. Norflex for muscle spasms Abdominal pain: Resolved Leukocytosis resolved CT scan did not indicate any abnormality SOB: Resolved. Chest x-ray without acute abnormality. 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 No signs of central DI Urinalysis was performed which did not indicate any signs of infection Continue Belladonna rectal suppository Hypertension: Controlled Norvasc 10 mg daily Vasotec, clonidine as needed Monitor BP Hypokalemia: Resolved. Patient is on potassium replacement Monitor BMP as needed Alcohol and cocaine abuse dependence patient previously counseled. Status post thiamine Tobacco abuse Counseled on cessation Chronic hepatitis C, chronic Patient with chronic transaminitis continue to follow monthly. 11/05 AST and ALT improved from prior LFTs. Liver ultrasound showed fatty infiltration Anxiety: Controlled Seroquel low-dose initiated on 05/27. Bowel regimen: Justyna-Colace, magnesium hydroxide as needed. DVT prophylaxis Sequential compression devices. Discharge Planning Occupational therapy recommends shower bench, 3-1 bedside commode for discharge. PT recommends right AFO. CM working on placement. Elisabeth Church Dec 04, 2016 09:38
[2016-12-04 20:00] VITALS: BP 129/82; PULSE 86; RESP 16; TEMP 98.8; O2SAT 95
[2016-12-04] MEDS: QUEtiapine FUMARATE 25 MG TAB PO SCH (21:26)
[2016-12-04] MEDS: BELLADONNA ALKALOIDS/OPIUM 60 MG SUPP RECTAL SCH (21:26)
[2016-12-04] MEDS: ORPHENADRINE CITRATE 100 MG SUSTAINED RELEASE TAB PO PRN (21:26)
[2016-12-05 08:00] VITALS: BP 107/77; PULSE 80; RESP 16; TEMP 98.9; O2SAT 92
--- NOTE | 2016-12-05 08:31 | HHI.PR ---
Subjective Remarks No acute complaints. No change in clinical status. Objective Vitals Vital Signs Date Time Temp Pulse Resp B/P Pulse Ox O2 Delivery O2 Flow Rate FiO2 12/05/16 08:00 98.9 80 16 107/77 92 12/04/16 20:00 98.8 86 16 129/82 95 I/O 12/04/16 12/04/16 12/04/16 12/05/16 12/05/16 12/05/16 07:00 15:00 23:00 07:00 15:00 23:00 Intake Total 100 ml 1600 ml 360 ml Output Total 300 ml Balance -200 ml 1600 ml 360 ml Intake Oral 100 ml 1600 ml 360 ml Output Urine Total 300 ml # Voids 5 3 6 # Bowel Movements 0 0 Objective Remarks GENERAL: Thin patient in no apparent distress sleeping when I enter the room. CARDIOVASCULAR: Regular rate and rhythm. RESPIRATORY: CTAB. GASTROINTESTINAL: Abdomen soft, nontender, non-distended. NEUROLOGICAL: Awake and alert. PSYCHIATRIC: Insight and judgment normal. 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 (2) Hemiparesis affecting right side as late effect of cerebrovascular accident (CVA) ICD Code: I69.351 Status: Chronic (3) Shortness of breath ICD Code: R06.02 Status: Resolved (4) Fever ICD Code: R50.9 Status: Resolved (5) Abdominal pain ICD Code: R10.9 Status: Resolved (6) Hypertensive emergency ICD Code: I10 Status: Resolved (7) Metabolic acidosis ICD Code: E87.2 Status: Resolved (8) UTI (urinary tract infection) ICD Code: N39.0 Status: Resolved (9) Vaginal discharge ICD Code: N89.8 Status: Resolved (10) Increased urinary frequency ICD Code: R35.0 Status: Resolved Assessment and Plan Left basal ganglia bleed with 4mm MLS with dense Right hemiparesis, stable secondary to cocaine and uncontrolled hypertension Neurosurgery, Dr. Venegas has evaluated the patient. The bleed has been stable on repeat head CT. No surgery needed. Speech therapy indicated soft diet with thin liquids Occupational therapy indicates OT at rehabilitation. Patient will need to continue occupational therapy until discharge Physical therapy indicating PT at rehabilitation. We'll need to continue physical therapy, continue right AFO. Norflex for muscle spasms Abdominal pain: Resolved Leukocytosis resolved CT scan did not indicate any abnormality SOB: Resolved. Chest x-ray without acute abnormality. 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 No signs of central DI Urinalysis was performed which did not indicate any signs of infection Continue Belladonna rectal suppository Hypertension: Controlled Norvasc 10 mg daily Vasotec, clonidine as needed Monitor BP Hypokalemia: Resolved. Patient is on potassium replacement Monitor BMP as needed Alcohol and cocaine abuse dependence patient previously counseled. Status post thiamine Tobacco abuse Counseled on cessation Chronic hepatitis C, chronic Patient with chronic transaminitis continue to follow periodically. 11/05 AST and ALT improved from prior LFTs. Liver ultrasound showed fatty infiltration Anxiety: Controlled Seroquel low-dose initiated on 05/27. Bowel regimen: Justyna-Colace, magnesium hydroxide as needed. DVT prophylaxis Sequential compression devices. Discharge Planning Occupational therapy recommends shower bench, 3-1 bedside commode for discharge. PT recommends right AFO. CM working on placement. Elisabeth Church Dec 05, 2016 08:31
[2016-12-05] MEDS: POTASSIUM CHLORIDE 10 MEQ CONTROLLED RELEASE TAB PO SCH (09:20)
[2016-12-05] MEDS: FAMOTIDINE 20 MG TAB PO SCH ×2 (09:20→20:29)
[2016-12-05] MEDS: GABAPENTIN 100 MG CAP PO SCH ×3 (09:20→18:25)
[2016-12-05 20:00] VITALS: BP 115/76; PULSE 79; RESP 20; TEMP 98.9; O2SAT 97
[2016-12-05] MEDS: BELLADONNA ALKALOIDS/OPIUM 60 MG SUPP RECTAL SCH (20:29)
[2016-12-05] MEDS: QUEtiapine FUMARATE 25 MG TAB PO SCH (20:29)
[2016-12-05] MEDS: ORPHENADRINE CITRATE 100 MG SUSTAINED RELEASE TAB PO PRN (20:29)
[2016-12-06 08:00] VITALS: BP 115/77; PULSE 79; RESP 17; TEMP 98.1; O2SAT 96
[2016-12-06] MEDS: FAMOTIDINE 20 MG TAB PO SCH ×2 (09:04→20:36)
[2016-12-06] MEDS: POTASSIUM CHLORIDE 10 MEQ CONTROLLED RELEASE TAB PO SCH (09:04)
[2016-12-06] MEDS: GABAPENTIN 100 MG CAP PO SCH ×3 (09:04→17:00)
--- NOTE | 2016-12-06 13:14 | HHI.PR ---
Subjective Remarks No acute complaints. No change in clinical status. Objective Vitals Vital Signs Date Time Temp Pulse Resp B/P Pulse Ox O2 Delivery O2 Flow Rate FiO2 12/06/16 08:00 98.1 79 17 115/77 96 12/05/16 20:00 98.9 79 20 115/76 97 I/O 12/05/16 12/05/16 12/05/16 12/06/16 12/06/16 12/06/16 06:59 14:59 22:59 06:59 14:59 22:59 Intake Total 360 ml 1340 ml Balance 360 ml 1340 ml Intake Oral 360 ml 1340 ml # Voids 6 3 1 6 # Bowel Movements 0 0 Objective Remarks GENERAL: Thin patient in no apparent distress. CARDIOVASCULAR: Regular rate and rhythm. RESPIRATORY: CTAB. GASTROINTESTINAL: Abdomen soft, nontender, mildly distended, chronic. NEUROLOGICAL: Awake and alert. PSYCHIATRIC: Insight and judgment normal. 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 (2) Hemiparesis affecting right side as late effect of cerebrovascular accident (CVA) ICD Code: I69.351 Status: Chronic (3) Shortness of breath ICD Code: R06.02 Status: Resolved (4) Fever ICD Code: R50.9 Status: Resolved (5) Abdominal pain ICD Code: R10.9 Status: Resolved (6) Hypertensive emergency ICD Code: I10 Status: Resolved (7) Metabolic acidosis ICD Code: E87.2 Status: Resolved (8) UTI (urinary tract infection) ICD Code: N39.0 Status: Resolved (9) Vaginal discharge ICD Code: N89.8 Status: Resolved (10) Increased urinary frequency ICD Code: R35.0 Status: Resolved Assessment and Plan Left basal ganglia bleed with 4mm MLS with dense Right hemiparesis, stable secondary to cocaine and uncontrolled hypertension Neurosurgery, Dr. Venegas has evaluated the patient. The bleed has been stable on repeat head CT. No surgery needed. Speech therapy indicated soft diet with thin liquids Occupational therapy indicates OT at rehabilitation. Patient will need to continue occupational therapy until discharge Physical therapy indicating PT at rehabilitation. We'll need to continue physical therapy, continue right AFO. Norflex for muscle spasms Abdominal pain: Resolved Leukocytosis resolved CT scan did not indicate any abnormality SOB: Resolved. Chest x-ray without acute abnormality. 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 No signs of central DI Urinalysis was performed which did not indicate any signs of infection Continue Belladonna rectal suppository Hypertension: Controlled Norvasc 10 mg daily Vasotec, clonidine as needed Monitor BP Hypokalemia: Resolved. Patient is on potassium replacement Monitor BMP as needed Alcohol and cocaine abuse dependence patient previously counseled. Status post thiamine Tobacco abuse Counseled on cessation Chronic hepatitis C, chronic Patient with chronic transaminitis continue to follow periodically. 11/05 AST and ALT improved from prior LFTs. Liver ultrasound showed fatty infiltration Anxiety: Controlled Seroquel low-dose initiated on 05/27. Bowel regimen: Justyna-Colace, magnesium hydroxide as needed. DVT prophylaxis Sequential compression devices. Discharge Planning Occupational therapy recommends shower bench, 3-1 bedside commode for discharge. PT recommends right AFO. CM working on placement. Elisabeth Church Dec 06, 2016 13:14
[2016-12-06 20:00] VITALS: BP 132/87; PULSE 81; RESP 20; TEMP 98.6; O2SAT 95
[2016-12-06] MEDS: QUEtiapine FUMARATE 25 MG TAB PO SCH (20:35)
[2016-12-06] MEDS: BELLADONNA ALKALOIDS/OPIUM 60 MG SUPP RECTAL SCH (20:36)
[2016-12-06] MEDS: ORPHENADRINE CITRATE 100 MG SUSTAINED RELEASE TAB PO PRN (20:43)
[2016-12-07 08:00] VITALS: BP 122/83; PULSE 77; RESP 18; TEMP 98.2; O2SAT 97
[2016-12-07] MEDS: POTASSIUM CHLORIDE 10 MEQ CONTROLLED RELEASE TAB PO SCH (08:37)
[2016-12-07] MEDS: GABAPENTIN 100 MG CAP PO SCH ×3 (08:37→17:07)
[2016-12-07] MEDS: FAMOTIDINE 20 MG TAB PO SCH ×2 (08:37→21:19)
--- NOTE | 2016-12-07 10:22 | HHI.PR ---
Subjective Remarks Patient seen and examined today. Patient denies any new complaints. No change in clinical status. Awaiting case management discharge planning Objective Vitals Vital Signs Date Time Temp Pulse Resp B/P Pulse Ox O2 Delivery O2 Flow Rate FiO2 12/07/16 08:00 98.2 77 18 122/83 97 12/06/16 20:00 98.6 81 20 132/87 95 I/O 12/06/16 12/06/16 12/06/16 12/07/16 12/07/16 12/07/16 07:00 15:00 23:00 07:00 15:00 23:00 Intake Total 480 ml 480 ml 240 ml Balance 480 ml 480 ml 240 ml Intake Oral 480 ml 480 ml 240 ml # Voids 6 2 2 # Bowel Movements 0 0 0 Objective Remarks GENERAL: Well-developed, well-nourished, in no acute distress. alert and orientated HEENT: Head is normocephalic without any lesions or masses noted right facial droop. NECK: Trachea midline no deviation. CARDIAC: Regular rhythm, regular rate. S1/S2 are heard. No murmurs gallops or rubs. LUNGS: Clear to auscultation bilaterally. No wheeze, rhonchi or rales. No use of accessory muscles on inspiration or expiration. ABDOMEN: Soft, nontender. Nondistended. Bowel sounds heard in all 4 quadrants. No organomegaly or masses. Negative rebound, negative guarding EXTREMITIES: No edema, pulses are equal bilaterally. No cyanosis or clubbing NEUROLOGY: Mood and affect appear appropriate. Dense right hemiparesis which appears to be improving in the lower extremity. Patient is able to move her right hand second third and fourth digit. 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 Venegas has evaluated the patient. The bleed has been stable on repeat head CT. No surgery needed. Speech therapy has been following the patient continue on soft diet with thin liquids Occupational therapy indicates OT at rehabilitation. Patient will need to continue occupational therapy until discharge Physical therapy indicating PT at rehabilitation. We'll need to continue physical therapy, continue right AFO, Norflex for muscle spasm --trapeze assembly for bed to facilitate functioning --Consulted OT for wheelchair recommendations. Supplied recommendations to case management to provide wheelchair. We'll reconsult case management to supply wheelchair Patient will likely be able to use a wheelchair and be discharged prior to ambulating at a hospital or finding available for rehabilitation Right arm pain, controlled Continue Neurontin for right arm neuropathic pain Dysuria, urinary frequency, resolved BNP was performed, sodium level was normal. No signs of central DI Urinalysis was performed which did not indicate any signs of infection Belladonna rectal suppository Hypertension, stable Norvasc 10 mg daily Vasotec, clonidine as needed Alcohol and cocaine abuse dependence patient previously counseled. Status post thiamine Tobacco abuse Counseled on cessation Chronic hepatitis C, chronic Patient with chronic transaminitis continue to follow monthly. liver ultrasound showed fatty infiltration Anxiety. Controlled Seroquel low-dose initiated on 05/27. Bowel regimen Justyna-Colace as needed DVT prophylaxis Sequential compression devices. Discharge Planning Patient has no funding for rehabilitation. Patient was denied SSI. pay station department manager is following up with [facility] regarding status of applications. Occupational therapy recommends shower bench, 3-1 bedside commode for discharge. PT recommends right AFO. 08/16, case management spoke with patient's mother who states that she'll assist in discharge planning. [place] decision [place] Dec 07, 2016 10:22
[2016-12-07 20:00] VITALS: BP 138/94; PULSE 85; RESP 20; TEMP 97.6; O2SAT 96
[2016-12-07] MEDS: ORPHENADRINE CITRATE 100 MG SUSTAINED RELEASE TAB PO PRN (21:20)
[2016-12-07] MEDS: BELLADONNA ALKALOIDS/OPIUM 60 MG SUPP RECTAL SCH (21:20)
[2016-12-07] MEDS: QUEtiapine FUMARATE 25 MG TAB PO SCH (21:20)
[2016-12-08] MEDS: GABAPENTIN 100 MG CAP PO SCH ×3 (09:29→16:55)
[2016-12-08] MEDS: FAMOTIDINE 20 MG TAB PO SCH ×2 (09:29→20:11)
[2016-12-08] MEDS: POTASSIUM CHLORIDE 10 MEQ CONTROLLED RELEASE TAB PO SCH (09:29)
[2016-12-08 10:16] VITALS: BP 121/80; PULSE 78; RESP 18; TEMP 97.1; O2SAT 91
--- NOTE | 2016-12-08 13:56 | HHI.PR ---
Subjective Remarks Patient seen and examined today. Patient denies any new complaints. No change in clinical status. Awaiting case management to supply patient wheelchair and arrange discharge planning Objective Vitals Vital Signs Date Time Temp Pulse Resp B/P Pulse Ox O2 Delivery O2 Flow Rate FiO2 12/08/16 10:16 97.1 78 18 121/80 91 12/07/16 20:00 97.6 85 20 138/94 96 I/O 12/07/16 12/07/16 12/07/16 12/08/16 12/08/16 12/08/16 07:00 15:00 23:00 07:00 15:00 23:00 Intake Total 240 ml 480 ml 480 ml 480 ml Balance 240 ml 480 ml 480 ml 480 ml Intake Oral 240 ml 480 ml 480 ml 480 ml # Voids 2 2 3 3 # Bowel Movements 0 1 1 0 Objective Remarks GENERAL: Well-developed, well-nourished, in no acute distress. alert and orientated HEENT: Head is normocephalic without any lesions or masses noted right facial droop. NECK: Trachea midline no deviation. CARDIAC: Regular rhythm, regular rate. S1/S2 are heard. No murmurs gallops or rubs. LUNGS: Clear to auscultation bilaterally. No wheeze, rhonchi or rales. No use of accessory muscles on inspiration or expiration. ABDOMEN: Soft, nontender. Nondistended. Bowel sounds heard in all 4 quadrants. No organomegaly or masses. Negative rebound, negative guarding EXTREMITIES: No edema, pulses are equal bilaterally. No cyanosis or clubbing NEUROLOGY: Mood and affect appear appropriate. Dense right hemiparesis which appears to be improving in the lower extremity. Patient is able to move her right hand second third and fourth digit. 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 Venegas has evaluated the patient. The bleed has been stable on repeat head CT. No surgery needed. Speech therapy has been following the patient continue on soft diet with thin liquids Occupational therapy indicates OT at rehabilitation. Patient will need to continue occupational therapy until discharge Physical therapy indicating PT at rehabilitation. We'll need to continue physical therapy, continue right AFO, Norflex for muscle spasm --trapeze assembly for bed to facilitate functioning --Consulted OT for wheelchair recommendations. Supplied recommendations to case management to provide wheelchair. We'll reconsult case management to supply wheelchair Patient will likely be able to use a wheelchair and be discharged prior to ambulating at a hospital or finding available for rehabilitation Right arm pain, controlled Continue Neurontin for right arm neuropathic pain Dysuria, urinary frequency, resolved BNP was performed, sodium level was normal. No signs of central DI Urinalysis was performed which did not indicate any signs of infection Belladonna rectal suppository Hypertension, stable Norvasc 10 mg daily Vasotec, clonidine as needed Alcohol and cocaine abuse dependence patient previously counseled. Status post thiamine Tobacco abuse Counseled on cessation Chronic hepatitis C, chronic Patient with chronic transaminitis continue to follow monthly. liver ultrasound showed fatty infiltration Anxiety. Controlled Seroquel low-dose initiated on 05/27. Bowel regimen Justyna-Colace as needed DVT prophylaxis Sequential compression devices. Discharge Planning Patient has no funding for rehabilitation. Patient was denied SSI. fitness services manager is following up with [facility] regarding status of applications. Occupational therapy recommends shower bench, 3-1 bedside commode for discharge. PT recommends right AFO. 08/16, case management spoke with patient's mother who states that she'll assist in discharge planning. [facility] [place] [facility] [place] Dec 08, 2016 13:56
[2016-12-08 20:00] VITALS: BP 122/82; PULSE 82; RESP 20; TEMP 98.6; O2SAT 96
[2016-12-08] MEDS: BELLADONNA ALKALOIDS/OPIUM 60 MG SUPP RECTAL SCH (20:11)
[2016-12-08] MEDS: QUEtiapine FUMARATE 25 MG TAB PO SCH (20:11)
[2016-12-09 08:00] VITALS: BP 119/80; PULSE 77; RESP 20; TEMP 96.9; O2SAT 95
[2016-12-09] MEDS: GABAPENTIN 100 MG CAP PO SCH ×3 (08:22→17:31)
[2016-12-09] MEDS: POTASSIUM CHLORIDE 10 MEQ CONTROLLED RELEASE TAB PO SCH (08:22)
[2016-12-09] MEDS: FAMOTIDINE 20 MG TAB PO SCH ×2 (08:22→20:31)
--- NOTE | 2016-12-09 10:24 | HHI.PR ---
Subjective Remarks Patient seen and examined today. Patient denies any new complaints. No change in clinical status. This record reviewed, no acute events overnight, no change in present treatment plan. Objective Vitals Vital Signs Date Time Temp Pulse Resp B/P Pulse Ox O2 Delivery O2 Flow Rate FiO2 12/09/16 08:00 96.9 77 20 119/80 95 12/08/16 20:00 98.6 82 20 122/82 96 I/O 12/08/16 12/08/16 12/08/16 12/09/16 12/09/16 12/09/16 07:00 15:00 23:00 07:00 15:00 23:00 Intake Total 480 ml 480 ml Output Total 175 ml Balance 480 ml 305 ml Intake Oral 480 ml 480 ml Output Urine Total 175 ml # Voids 3 3 1 2 # Bowel Movements 0 1 0 Objective Remarks GENERAL: Well-developed, well-nourished, in no acute distress. alert and orientated HEENT: Head is normocephalic without any lesions or masses noted right facial droop. NECK: Trachea midline no deviation. CARDIAC: Regular rhythm, regular rate. S1/S2 are heard. No murmurs gallops or rubs. LUNGS: Clear to auscultation bilaterally. No wheeze, rhonchi or rales. No use of accessory muscles on inspiration or expiration. ABDOMEN: Soft, nontender. Nondistended. Bowel sounds heard in all 4 quadrants. No organomegaly or masses. Negative rebound, negative guarding EXTREMITIES: No edema, pulses are equal bilaterally. No cyanosis or clubbing NEUROLOGY: Mood and affect appear appropriate. Dense right hemiparesis which appears to be improving in the lower extremity. Patient is able to move her right hand second third and fourth digit. 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 Venegas has evaluated the patient. The bleed has been stable on repeat head CT. No surgery needed. Speech therapy has been following the patient continue on soft diet with thin liquids Occupational therapy indicates OT at rehabilitation. Patient will need to continue occupational therapy until discharge Physical therapy indicating PT at rehabilitation. We'll need to continue physical therapy, continue right AFO, Norflex for muscle spasm --trapeze assembly for bed to facilitate functioning --Consulted OT for wheelchair recommendations. Supplied recommendations to case management to provide wheelchair. We'll reconsult case management to supply wheelchair Patient will likely be able to use a wheelchair and be discharged prior to ambulating out of the hospital or funding available for rehabilitation Right arm pain, controlled Continue Neurontin for right arm neuropathic pain Dysuria, urinary frequency, resolved BNP was performed, sodium level was normal. No signs of central DI Urinalysis was performed which did not indicate any signs of infection Belladonna rectal suppository Hypertension, stable Norvasc 10 mg daily Vasotec, clonidine as needed Alcohol and cocaine abuse dependence patient previously counseled. Status post thiamine Tobacco abuse Counseled on cessation Chronic hepatitis C, chronic Patient with chronic transaminitis continue to follow monthly. liver ultrasound showed fatty infiltration Anxiety. Controlled Seroquel low-dose initiated on 05/27. Bowel regimen Justyna-Colace as needed DVT prophylaxis Sequential compression devices. Discharge Planning Patient has no funding for rehabilitation. Patient was denied SSI. manager industrial is following up with [facility] regarding status of applications. Occupational therapy recommends shower bench, 3-1 bedside commode for discharge. PT recommends right AFO. 08/16, case management spoke with patient's mother who states that she'll assist in discharge planning. [facility] [place] [facility] Dec 09, 2016 10:24
[2016-12-09 20:00] VITALS: BP 112/72; PULSE 77; RESP 16; TEMP 97.6; O2SAT 98
[2016-12-09] MEDS: BELLADONNA ALKALOIDS/OPIUM 60 MG SUPP RECTAL SCH (20:31)
[2016-12-09] MEDS: QUEtiapine FUMARATE 25 MG TAB PO SCH (20:31)
[2016-12-10 08:00] VITALS: BP 119/81; PULSE 79; RESP 16; TEMP 98.1; O2SAT 96
[2016-12-10] MEDS: GABAPENTIN 100 MG CAP PO SCH ×3 (08:51→18:05)
[2016-12-10] MEDS: POTASSIUM CHLORIDE 10 MEQ CONTROLLED RELEASE TAB PO SCH (08:51)
[2016-12-10] MEDS: FAMOTIDINE 20 MG TAB PO SCH ×2 (08:51→20:10)
--- NOTE | 2016-12-10 10:18 | HHI.PR ---
Subjective Remarks Patient seen and examined today. Patient denies any new complaints. No change in clinical status. This record was reviewed, no acute events overnight, present treatment plan is unchanged. Awaiting case management for discharge planning Objective Vitals Vital Signs Date Time Temp Pulse Resp B/P Pulse Ox O2 Delivery O2 Flow Rate FiO2 12/10/16 08:00 98.1 79 16 119/81 96 12/09/16 20:00 97.6 77 16 112/72 98 I/O 12/09/16 12/09/16 12/09/16 12/10/16 12/10/16 12/10/16 07:00 15:00 23:00 07:00 15:00 23:00 Intake Total 900 ml 620 ml 100 ml Balance 900 ml 620 ml 100 ml Intake Oral 900 ml 620 ml 100 ml # Voids 2 5 2 1 # Bowel Movements 0 1 0 Objective Remarks GENERAL: Well-developed, well-nourished, in no acute distress. alert and orientated HEENT: Head is normocephalic without any lesions or masses noted right facial droop. NECK: Trachea midline no deviation. CARDIAC: Regular rhythm, regular rate. S1/S2 are heard. No murmurs gallops or rubs. LUNGS: Clear to auscultation bilaterally. No wheeze, rhonchi or rales. No use of accessory muscles on inspiration or expiration. ABDOMEN: Soft, nontender. Nondistended. Bowel sounds heard in all 4 quadrants. No organomegaly or masses. Negative rebound, negative guarding EXTREMITIES: No edema, pulses are equal bilaterally. No cyanosis or clubbing NEUROLOGY: Mood and affect appear appropriate. Dense right hemiparesis which appears to be improving in the lower extremity. Patient is able to move her right hand second third and fourth digit. 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 Venegas has evaluated the patient. The bleed has been stable on repeat head CT. No surgery needed. Speech therapy has been following the patient continue on soft diet with thin liquids Occupational therapy indicates OT at rehabilitation. Patient will need to continue occupational therapy until discharge Physical therapy indicating PT at rehabilitation. We'll need to continue physical therapy, continue right AFO, Norflex for muscle spasm --trapeze assembly for bed to facilitate functioning --Consulted OT for wheelchair recommendations. Supplied recommendations to case management to provide wheelchair. We'll reconsult case management to supply wheelchair Patient will likely be able to use a wheelchair and be discharged prior to ambulating out of the hospital or funding available for rehabilitation Right arm pain, controlled Continue Neurontin for right arm neuropathic pain Dysuria, urinary frequency, resolved BNP was performed, sodium level was normal. No signs of central DI Urinalysis was performed which did not indicate any signs of infection Belladonna rectal suppository Hypertension, stable Norvasc 10 mg daily Vasotec, clonidine as needed Alcohol and cocaine abuse dependence patient previously counseled. Status post thiamine Tobacco abuse Counseled on cessation Chronic hepatitis C, chronic Patient with chronic transaminitis continue to follow monthly. liver ultrasound showed fatty infiltration Anxiety. Controlled Seroquel low-dose initiated on 05/27. Bowel regimen Justyna-Colace as needed DVT prophylaxis Sequential compression devices. Discharge Planning Patient has no funding for rehabilitation. Patient was denied SSI. artist's manager is following up with [facility] regarding status of applications. Occupational therapy recommends shower bench, 3-1 bedside commode for discharge. PT recommends right AFO. 08/16, case management spoke with patient's mother who states that she'll assist in discharge planning. [facility]waiting decision [facility] [place] [facility] Dec 10, 2016 10:18
[2016-12-10] MEDS: QUEtiapine FUMARATE 25 MG TAB PO SCH (20:10)
[2016-12-10] MEDS: BELLADONNA ALKALOIDS/OPIUM 60 MG SUPP RECTAL SCH (20:11)
[2016-12-10 22:03] VITALS: BP 132/84; PULSE 84; RESP 20; TEMP 98.6; O2SAT 97
[2016-12-11 08:00] VITALS: BP 131/82; PULSE 77; RESP 18; TEMP 97.9; O2SAT 96
[2016-12-11] MEDS: FAMOTIDINE 20 MG TAB PO SCH ×2 (08:08→20:11)
[2016-12-11] MEDS: GABAPENTIN 100 MG CAP PO SCH ×3 (08:08→17:48)
[2016-12-11] MEDS: POTASSIUM CHLORIDE 10 MEQ CONTROLLED RELEASE TAB PO SCH (08:08)
--- NOTE | 2016-12-11 10:32 | HHI.PR ---
Subjective Remarks Patient seen and examined today. Patient denies any new complaints. No change in clinical status. This record was reviewed, no acute events overnight, no change present treatment plan. Awaiting case management for discharge planning Objective Vitals Vital Signs Date Time Temp Pulse Resp B/P Pulse Ox O2 Delivery O2 Flow Rate FiO2 12/11/16 08:00 97.9 77 18 131/82 96 12/10/16 22:03 98.6 84 20 132/84 97 I/O 12/10/16 12/10/16 12/10/16 12/11/16 12/11/16 12/11/16 07:00 15:00 23:00 07:00 15:00 23:00 Intake Total 100 ml 1380 ml Balance 100 ml 1380 ml Intake Oral 100 ml 1380 ml # Voids 1 3 3 1 # Bowel Movements 0 Objective Remarks GENERAL: Well-developed, well-nourished, in no acute distress. alert and orientated HEENT: Head is normocephalic without any lesions or masses noted right facial droop. NECK: Trachea midline no deviation. CARDIAC: Regular rhythm, regular rate. S1/S2 are heard. No murmurs gallops or rubs. LUNGS: Clear to auscultation bilaterally. No wheeze, rhonchi or rales. No use of accessory muscles on inspiration or expiration. ABDOMEN: Soft, nontender. Nondistended. Bowel sounds heard in all 4 quadrants. No organomegaly or masses. Negative rebound, negative guarding EXTREMITIES: No edema, pulses are equal bilaterally. No cyanosis or clubbing NEUROLOGY: Mood and affect appear appropriate. Dense right hemiparesis which appears to be improving in the lower extremity. Patient is able to move her right hand second third and fourth digit. 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 Venegas has evaluated the patient. The bleed has been stable on repeat head CT. No surgery needed. Speech therapy has been following the patient continue on soft diet with thin liquids Occupational therapy indicates OT at rehabilitation. Patient will need to continue occupational therapy until discharge Physical therapy indicating PT at rehabilitation. We'll need to continue physical therapy, continue right AFO, Norflex for muscle spasm --trapeze assembly for bed to facilitate functioning --Consulted OT for wheelchair recommendations. Supplied recommendations to case management to provide wheelchair. reconsulted case management to supply wheelchair Patient will likely be able to use a wheelchair and be discharged prior to ambulating out of the hospital or funding available for rehabilitation Right arm pain, controlled Continue Neurontin for right arm neuropathic pain Dysuria, urinary frequency, resolved BNP was performed, sodium level was normal. No signs of central DI Urinalysis was performed which did not indicate any signs of infection Belladonna rectal suppository Hypertension, stable Norvasc 10 mg daily Vasotec, clonidine as needed Alcohol and cocaine abuse dependence patient previously counseled. Status post thiamine Tobacco abuse Counseled on cessation Chronic hepatitis C, chronic Patient with chronic transaminitis continue to follow monthly. liver ultrasound showed fatty infiltration Anxiety. Controlled Seroquel low-dose initiated on 05/27. Bowel regimen Justyna-Colace as needed DVT prophylaxis Sequential compression devices. Discharge Planning Patient has no funding for rehabilitation. Patient was denied SSI. inventory specialist manager is following up with [facility] regarding status of applications. Occupational therapy recommends shower bench, 3-1 bedside commode for discharge. PT recommends right AFO. 08/16, case management spoke with patient's mother who states that she'll assist in discharge planning. [facility] [place] [facility] Dec 11, 2016 10:32
[2016-12-11 20:00] VITALS: BP 131/81; PULSE 84; RESP 16; TEMP 98.3; O2SAT 94
[2016-12-11] MEDS: BELLADONNA ALKALOIDS/OPIUM 60 MG SUPP RECTAL SCH (20:11)
[2016-12-11] MEDS: QUEtiapine FUMARATE 25 MG TAB PO SCH (20:11)
[2016-12-12 08:00] VITALS: BP 121/80; PULSE 77; RESP 19; TEMP 97.9; O2SAT 96
[2016-12-12] MEDS: GABAPENTIN 100 MG CAP PO SCH ×3 (08:58→16:36)
[2016-12-12] MEDS: FAMOTIDINE 20 MG TAB PO SCH ×2 (08:58→20:22)
[2016-12-12] MEDS: POTASSIUM CHLORIDE 10 MEQ CONTROLLED RELEASE TAB PO SCH (08:58)
--- NOTE | 2016-12-12 10:53 | HHI.PR ---
Subjective Remarks This record was reviewed, no acute events overnight, no change in present treatment plan. Patient seen and examined today. Patient denies any new complaints. Awaiting case management for discharge planning Objective Vitals Vital Signs Date Time Temp Pulse Resp B/P Pulse Ox O2 Delivery O2 Flow Rate FiO2 12/12/16 08:00 97.9 77 19 121/80 96 12/11/16 20:00 98.3 84 16 131/81 94 I/O 12/11/16 12/11/16 12/11/16 12/12/16 12/12/16 12/12/16 07:00 15:00 23:00 07:00 15:00 23:00 Intake Total 480 ml 480 ml 220 ml Balance 480 ml 480 ml 220 ml Intake Oral 480 ml 480 ml 220 ml # Voids 1 2 5 2 # Bowel Movements 0 0 0 Objective Remarks GENERAL: Well-developed, well-nourished, in no acute distress. alert and orientated HEENT: Head is normocephalic without any lesions or masses noted right facial droop. NECK: Trachea midline no deviation. CARDIAC: Regular rhythm, regular rate. S1/S2 are heard. No murmurs gallops or rubs. LUNGS: Clear to auscultation bilaterally. No wheeze, rhonchi or rales. No use of accessory muscles on inspiration or expiration. ABDOMEN: Soft, nontender. Nondistended. Bowel sounds heard in all 4 quadrants. No organomegaly or masses. Negative rebound, negative guarding EXTREMITIES: No edema, pulses are equal bilaterally. No cyanosis or clubbing NEUROLOGY: Mood and affect appear appropriate. Dense right hemiparesis which appears to be improving in the lower extremity. Patient is able to move her right hand second third and fourth digit. 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 Venegas has evaluated the patient. The bleed has been stable on repeat head CT. No surgery needed. Speech therapy has been following the patient continue on soft diet with thin liquids Occupational therapy indicates OT at rehabilitation. Patient will need to continue occupational therapy until discharge Physical therapy indicating PT at rehabilitation. We'll need to continue physical therapy, continue right AFO, Norflex for muscle spasm --trapeze assembly for bed to facilitate functioning --Consulted OT for wheelchair recommendations. Supplied recommendations to case management to provide wheelchair. reconsulted case management to supply wheelchair Patient will likely be able to use a wheelchair and be discharged prior to ambulating out of the hospital or funding available for rehabilitation Right arm pain, controlled Continue Neurontin for right arm neuropathic pain Dysuria, urinary frequency, resolved BNP was performed, sodium level was normal. No signs of central DI Urinalysis was performed which did not indicate any signs of infection Belladonna rectal suppository Hypertension, stable Norvasc 10 mg daily Vasotec, clonidine as needed Alcohol and cocaine abuse dependence patient previously counseled. Status post thiamine Tobacco abuse Counseled on cessation Chronic hepatitis C, chronic Patient with chronic transaminitis continue to follow monthly. liver ultrasound showed fatty infiltration Anxiety. Controlled Seroquel low-dose initiated on 05/27. Bowel regimen Justyna-Colace as needed DVT prophylaxis Sequential compression devices. Discharge Planning Patient has no funding for rehabilitation. Patient was denied SSI. front end manager is following up with [facility] regarding status of applications. Occupational therapy recommends shower bench, 3-1 bedside commode for discharge. PT recommends right AFO. 08/16, case management spoke with patient's mother who states that she'll assist in discharge planning. [facility] [place] [facility] Dec 12, 2016 10:53
[2016-12-12] MEDS: QUEtiapine FUMARATE 25 MG TAB PO SCH (20:22)
[2016-12-12] MEDS: BELLADONNA ALKALOIDS/OPIUM 60 MG SUPP RECTAL SCH (20:22)
[2016-12-12] MEDS: ORPHENADRINE CITRATE 100 MG SUSTAINED RELEASE TAB PO PRN (20:22)
[2016-12-12 22:00] VITALS: BP 125/87; PULSE 83; RESP 20; TEMP 98.7; O2SAT 96
[2016-12-13] MEDS: POTASSIUM CHLORIDE 10 MEQ CONTROLLED RELEASE TAB PO SCH (07:47)
[2016-12-13] MEDS: GABAPENTIN 100 MG CAP PO SCH ×3 (07:47→17:29)
[2016-12-13] MEDS: FAMOTIDINE 20 MG TAB PO SCH ×2 (07:47→20:26)
[2016-12-13 08:00] VITALS: BP 136/92; PULSE 83; RESP 20; TEMP 98.4; O2SAT 92
--- NOTE | 2016-12-13 11:22 | HHI.PR ---
Subjective Remarks Patient seen and examined today. Patient denies any new complaints. No change in clinical status. Objective Vitals Vital Signs Date Time Temp Pulse Resp B/P Pulse Ox O2 Delivery O2 Flow Rate FiO2 12/13/16 08:00 98.4 83 20 136/92 92 12/12/16 22:00 98.7 83 20 125/87 96 I/O 12/12/16 12/12/16 12/12/16 12/13/16 12/13/16 12/13/16 07:00 15:00 23:00 07:00 15:00 23:00 Intake Total 220 ml 1280 ml Balance 220 ml 1280 ml Intake Oral 220 ml 1280 ml # Voids 2 5 1 # Bowel Movements 0 0 Objective Remarks GENERAL: Well-developed, well-nourished, in no acute distress. alert and orientated HEENT: Head is normocephalic without any lesions or masses noted right facial droop. NECK: Trachea midline no deviation. CARDIAC: Regular rhythm, regular rate. S1/S2 are heard. No murmurs gallops or rubs. LUNGS: Clear to auscultation bilaterally. No wheeze, rhonchi or rales. No use of accessory muscles on inspiration or expiration. ABDOMEN: Soft, nontender. Nondistended. Bowel sounds heard in all 4 quadrants. No organomegaly or masses. Negative rebound, negative guarding EXTREMITIES: No edema, pulses are equal bilaterally. No cyanosis or clubbing NEUROLOGY: Mood and affect appear appropriate. Dense right hemiparesis which appears to be improving in the lower extremity. Patient is able to move her right hand second third and fourth digit. 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 Venegas has evaluated the patient. The bleed has been stable on repeat head CT. No surgery needed. Speech therapy has been following the patient continue on soft diet with thin liquids Occupational therapy indicates OT at rehabilitation. Patient will need to continue occupational therapy until discharge Physical therapy indicating PT at rehabilitation. We'll need to continue physical therapy, continue right AFO, Norflex for muscle spasm --trapeze assembly for bed to facilitate functioning --Consulted OT for wheelchair recommendations. Supplied recommendations to case management to provide wheelchair. reconsulted case management to supply wheelchair Patient will likely be able to use a wheelchair and be discharged prior to ambulating out of the hospital or funding available for rehabilitation Right arm pain, controlled Continue Neurontin for right arm neuropathic pain Dysuria, urinary frequency, resolved BNP was performed, sodium level was normal. No signs of central DI Urinalysis was performed which did not indicate any signs of infection Belladonna rectal suppository Hypertension, stable Norvasc 10 mg daily Vasotec, clonidine as needed Alcohol and cocaine abuse dependence patient previously counseled. Status post thiamine Tobacco abuse Counseled on cessation Chronic hepatitis C, chronic Patient with chronic transaminitis continue to follow monthly. liver ultrasound showed fatty infiltration Anxiety. Controlled Seroquel low-dose initiated on 05/27. Bowel regimen Justyna-Colace as needed DVT prophylaxis Sequential compression devices. Discharge Planning Discharge planning per case management Jaycob Rebolledo Dec 13, 2016 11:22
[2016-12-13 20:00] VITALS: BP 134/87; PULSE 83; RESP 16; TEMP 98.5; O2SAT 96
[2016-12-13] MEDS: ORPHENADRINE CITRATE 100 MG SUSTAINED RELEASE TAB PO PRN (20:26)
[2016-12-13] MEDS: QUEtiapine FUMARATE 25 MG TAB PO SCH (20:26)
[2016-12-13] MEDS: BELLADONNA ALKALOIDS/OPIUM 60 MG SUPP RECTAL SCH (20:26)
[2016-12-14 08:00] VITALS: BP 126/85; PULSE 79; RESP 21; TEMP 96.1; O2SAT 95
[2016-12-14] MEDS: FAMOTIDINE 20 MG TAB PO SCH ×2 (08:13→20:40)
[2016-12-14] MEDS: GABAPENTIN 100 MG CAP PO SCH ×3 (08:13→16:58)
[2016-12-14] MEDS: POTASSIUM CHLORIDE 10 MEQ CONTROLLED RELEASE TAB PO SCH (08:13)
--- NOTE | 2016-12-14 12:26 | HHI.PR ---
Subjective Remarks No acute complaints. No change in clinical status. Objective Vitals Vital Signs Date Time Temp Pulse Resp B/P Pulse Ox O2 Delivery O2 Flow Rate FiO2 12/14/16 08:00 96.1 79 21 126/85 95 12/13/16 20:00 98.5 83 16 134/87 96 I/O 12/13/16 12/13/16 12/13/16 12/14/16 12/14/16 12/14/16 07:00 15:00 23:00 07:00 15:00 23:00 Intake Total 1340 ml 840 ml 480 ml Balance 1340 ml 840 ml 480 ml Intake Oral 1340 ml 840 ml 480 ml # Voids 3 1 1 # Bowel Movements 1 0 0 Objective Remarks GENERAL: Thin patient in no apparent distress. CARDIOVASCULAR: Regular rate and rhythm. RESPIRATORY: CTAB. GASTROINTESTINAL: Abdomen soft, nontender, mildly distended, chronic. NEUROLOGICAL: Awake and alert. PSYCHIATRIC: Insight and judgment normal. 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 (2) Hemiparesis affecting right side as late effect of cerebrovascular accident (CVA) ICD Code: I69.351 Status: Chronic (3) Shortness of breath ICD Code: R06.02 Status: Resolved (4) Fever ICD Code: R50.9 Status: Resolved (5) Abdominal pain ICD Code: R10.9 Status: Resolved (6) Hypertensive emergency ICD Code: I10 Status: Resolved (7) Metabolic acidosis ICD Code: E87.2 Status: Resolved (8) UTI (urinary tract infection) ICD Code: N39.0 Status: Resolved (9) Vaginal discharge ICD Code: N89.8 Status: Resolved (10) Increased urinary frequency ICD Code: R35.0 Status: Resolved Assessment and Plan Left basal ganglia bleed with 4mm MLS with dense Right hemiparesis, stable secondary to cocaine and uncontrolled hypertension Neurosurgery, Dr. Venegas has evaluated the patient. The bleed has been stable on repeat head CT. No surgery needed. Speech therapy indicated soft diet with thin liquids Occupational therapy indicates OT at rehabilitation. Patient will need to continue occupational therapy until discharge Physical therapy indicating PT at rehabilitation. We'll need to continue physical therapy, continue right AFO. Norflex for muscle spasms Abdominal pain: Resolved Leukocytosis resolved CT scan did not indicate any abnormality SOB: Resolved. Chest x-ray without acute abnormality. 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 No signs of central DI Urinalysis was performed which did not indicate any signs of infection Continue Belladonna rectal suppository Hypertension: Controlled Norvasc 10 mg daily Vasotec, clonidine as needed Monitor BP Hypokalemia: Resolved. Patient is on potassium replacement Monitor BMP as needed Alcohol and cocaine abuse dependence patient previously counseled. Status post thiamine Tobacco abuse Counseled on cessation Chronic hepatitis C, chronic Patient with chronic transaminitis continue to follow periodically. 11/05 AST and ALT improved from prior LFTs. Liver ultrasound showed fatty infiltration Anxiety: Controlled Seroquel low-dose initiated on 05/27. Bowel regimen: Justyna-Colace, magnesium hydroxide as needed. DVT prophylaxis Sequential compression devices. Discharge Planning Occupational therapy recommends shower bench, 3-1 bedside commode for discharge. PT recommends right AFO. CM working on placement. 12/07/16: CM trying to resolve issue with medicaid on hold. Elisabeth Church Dec 14, 2016 12:26
[2016-12-14] MEDS: ORPHENADRINE CITRATE 100 MG SUSTAINED RELEASE TAB PO PRN ×2 (14:34→20:40)
[2016-12-14 20:00] VITALS: BP 122/85; PULSE 84; RESP 20; TEMP 98; O2SAT 96
[2016-12-14] MEDS: BELLADONNA ALKALOIDS/OPIUM 60 MG SUPP RECTAL SCH (20:39)
[2016-12-14] MEDS: QUEtiapine FUMARATE 25 MG TAB PO SCH (20:40)
[2016-12-15] MEDS: GABAPENTIN 100 MG CAP PO SCH ×3 (07:40→18:00)
[2016-12-15] MEDS: POTASSIUM CHLORIDE 10 MEQ CONTROLLED RELEASE TAB PO SCH (07:40)
[2016-12-15] MEDS: FAMOTIDINE 20 MG TAB PO SCH ×2 (07:40→20:14)
[2016-12-15 08:38] VITALS: BP 121/78; PULSE 78; RESP 18; TEMP 98.1; O2SAT 96
--- NOTE | 2016-12-15 12:59 | HHI.PR ---
Subjective Remarks No acute complaints. No change in clinical status. Objective Vitals Vital Signs Date Time Temp Pulse Resp B/P Pulse Ox O2 Delivery O2 Flow Rate FiO2 12/15/16 08:38 98.1 78 18 121/78 96 12/14/16 20:00 98.0 84 20 122/85 96 I/O 12/14/16 12/14/16 12/14/16 12/15/16 12/15/16 12/15/16 07:00 15:00 23:00 07:00 15:00 23:00 Intake Total 480 ml 850 ml 680 ml 840 ml Balance 480 ml 850 ml 680 ml 840 ml Intake Oral 480 ml 850 ml 680 ml 840 ml # Voids 1 5 4 4 # Bowel Movements 0 0 0 0 Objective Remarks GENERAL: Thin patient in no apparent distress. CARDIOVASCULAR: Regular rate and rhythm. RESPIRATORY: CTAB. GASTROINTESTINAL: Abdomen soft, nontender. NEUROLOGICAL: Awake and alert. PSYCHIATRIC: Insight and judgment normal. 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 (2) Hemiparesis affecting right side as late effect of cerebrovascular accident (CVA) ICD Code: I69.351 Status: Chronic (3) Shortness of breath ICD Code: R06.02 Status: Resolved (4) Fever ICD Code: R50.9 Status: Resolved (5) Abdominal pain ICD Code: R10.9 Status: Resolved (6) Hypertensive emergency ICD Code: I10 Status: Resolved (7) Metabolic acidosis ICD Code: E87.2 Status: Resolved (8) UTI (urinary tract infection) ICD Code: N39.0 Status: Resolved (9) Vaginal discharge ICD Code: N89.8 Status: Resolved (10) Increased urinary frequency ICD Code: R35.0 Status: Resolved Assessment and Plan Left basal ganglia bleed with 4mm MLS with dense Right hemiparesis, stable secondary to cocaine and uncontrolled hypertension Neurosurgery, Dr. Venegas has evaluated the patient. The bleed has been stable on repeat head CT. No surgery needed. Speech therapy indicated soft diet with thin liquids Occupational therapy indicates OT at rehabilitation. Patient will need to continue occupational therapy until discharge Physical therapy indicating PT at rehabilitation. We'll need to continue physical therapy, continue right AFO. Norflex for muscle spasms Abdominal pain: Resolved Leukocytosis resolved CT scan did not indicate any abnormality SOB: Resolved. Chest x-ray without acute abnormality. 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 No signs of central DI Urinalysis was performed which did not indicate any signs of infection Continue Belladonna rectal suppository Hypertension: Controlled Norvasc 10 mg daily Vasotec, clonidine as needed Monitor BP Hypokalemia: Resolved. Patient is on potassium replacement Monitor BMP as needed Alcohol and cocaine abuse dependence patient previously counseled. Status post thiamine Tobacco abuse Counseled on cessation Chronic hepatitis C, chronic Patient with chronic transaminitis continue to follow periodically. 11/05 AST and ALT improved from prior LFTs. Liver ultrasound showed fatty infiltration Anxiety: Controlled Seroquel low-dose initiated on 05/27. Bowel regimen: Justyna-Colace, magnesium hydroxide as needed. DVT prophylaxis Sequential compression devices. Discharge Planning Occupational therapy recommends shower bench, 3-1 bedside commode for discharge. PT recommends right AFO. CM working on placement. 12/07/16: CM trying to resolve issue with medicaid on hold. Elisabeth Church Dec 15, 2016 12:59
[2016-12-15 20:00] VITALS: BP 138/85; PULSE 78; RESP 20; TEMP 99.2; TEMP 99.9; O2SAT 92
[2016-12-15] MEDS: QUEtiapine FUMARATE 25 MG TAB PO SCH (20:14)
[2016-12-15] MEDS: BELLADONNA ALKALOIDS/OPIUM 60 MG SUPP RECTAL SCH (20:14)
[2016-12-16] MEDS: FAMOTIDINE 20 MG TAB PO SCH ×2 (08:05→20:52)
[2016-12-16] MEDS: GABAPENTIN 100 MG CAP PO SCH ×3 (08:05→16:48)
[2016-12-16] MEDS: POTASSIUM CHLORIDE 10 MEQ CONTROLLED RELEASE TAB PO SCH (08:05)
[2016-12-16 08:46] VITALS: BP 122/80; PULSE 62; RESP 12; TEMP 97.5; O2SAT 92
--- NOTE | 2016-12-16 13:07 | HHI.PR ---
Subjective Remarks No acute complaints. No change in clinical status. Objective Vitals Vital Signs Date Time Temp Pulse Resp B/P Pulse Ox O2 Delivery O2 Flow Rate FiO2 12/16/16 08:46 97.5 62 12 122/80 92 12/15/16 20:00 99.2 78 20 138/85 92 12/15/16 20:00 99.9 78 20 138/85 92 I/O 12/15/16 12/15/16 12/15/16 12/16/16 12/16/16 12/16/16 06:59 14:59 22:59 06:59 14:59 22:59 Intake Total 840 ml 480 ml 240 ml Balance 840 ml 480 ml 240 ml Intake Oral 840 ml 480 ml 240 ml # Voids 4 6 1 # Bowel Movements 0 1 0 1 Objective Remarks GENERAL: Thin patient in no apparent distress. CARDIOVASCULAR: Regular rate and rhythm. RESPIRATORY: CTAB. GASTROINTESTINAL: Abdomen soft, nontender. NEUROLOGICAL: Awake and alert. PSYCHIATRIC: Insight and judgment normal. 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 (2) Hemiparesis affecting right side as late effect of cerebrovascular accident (CVA) ICD Code: I69.351 Status: Chronic (3) Shortness of breath ICD Code: R06.02 Status: Resolved (4) Fever ICD Code: R50.9 Status: Resolved (5) Abdominal pain ICD Code: R10.9 Status: Resolved (6) Hypertensive emergency ICD Code: I10 Status: Resolved (7) Metabolic acidosis ICD Code: E87.2 Status: Resolved (8) UTI (urinary tract infection) ICD Code: N39.0 Status: Resolved (9) Vaginal discharge ICD Code: N89.8 Status: Resolved (10) Increased urinary frequency ICD Code: R35.0 Status: Resolved Assessment and Plan Left basal ganglia bleed with 4mm MLS with dense Right hemiparesis, stable secondary to cocaine and uncontrolled hypertension Neurosurgery, Dr. Venegas has evaluated the patient. The bleed has been stable on repeat head CT. No surgery needed. Speech therapy indicated soft diet with thin liquids Occupational therapy indicates OT at rehabilitation. Patient will need to continue occupational therapy until discharge Physical therapy indicating PT at rehabilitation. We'll need to continue physical therapy, continue right AFO. Norflex for muscle spasms Abdominal pain: Resolved Leukocytosis resolved CT scan did not indicate any abnormality SOB: Resolved. Chest x-ray without acute abnormality. 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 No signs of central DI Urinalysis was performed which did not indicate any signs of infection Continue Belladonna rectal suppository Hypertension: Controlled Norvasc 10 mg daily Vasotec, clonidine as needed Monitor BP Hypokalemia: Resolved. Patient is on potassium replacement Monitor BMP as needed Alcohol and cocaine abuse dependence patient previously counseled. Status post thiamine Tobacco abuse Counseled on cessation Chronic hepatitis C, chronic Patient with chronic transaminitis continue to follow periodically. 11/05 AST and ALT improved from prior LFTs. Liver ultrasound showed fatty infiltration Anxiety: Controlled Seroquel low-dose initiated on 05/27. Bowel regimen: Justyna-Colace, magnesium hydroxide as needed. DVT prophylaxis Sequential compression devices. Discharge Planning Occupational therapy recommends shower bench, 3-1 bedside commode for discharge. PT recommends right AFO. CM working on placement. 12/07/16: CM trying to resolve issue with medicaid on hold. Elisabeth Church Dec 16, 2016 13:07
[2016-12-16 20:00] VITALS: BP 135/92; PULSE 93; RESP 21; TEMP 99.7; O2SAT 99
[2016-12-16] MEDS: BELLADONNA ALKALOIDS/OPIUM 60 MG SUPP RECTAL SCH (20:52)
[2016-12-16] MEDS: QUEtiapine FUMARATE 25 MG TAB PO SCH (20:52)
[2016-12-17 08:00] VITALS: BP 124/76; PULSE 78; RESP 18; TEMP 97.5; O2SAT 98
[2016-12-17] MEDS: POTASSIUM CHLORIDE 10 MEQ CONTROLLED RELEASE TAB PO SCH (09:08)
[2016-12-17] MEDS: FAMOTIDINE 20 MG TAB PO SCH ×2 (09:08→20:24)
[2016-12-17] MEDS: GABAPENTIN 100 MG CAP PO SCH ×3 (09:08→17:28)
--- NOTE | 2016-12-17 09:17 | HHI.PR ---
Subjective Remarks No acute complaints. No change in clinical status. Objective Vitals Vital Signs Date Time Temp Pulse Resp B/P Pulse Ox O2 Delivery O2 Flow Rate FiO2 12/17/16 08:00 97.5 78 18 124/76 98 12/16/16 20:00 99.7 93 21 135/92 99 I/O 12/16/16 12/16/16 12/16/16 12/17/16 12/17/16 12/17/16 07:00 15:00 23:00 07:00 15:00 23:00 Intake Total 240 ml 1120 ml 240 ml Balance 240 ml 1120 ml 240 ml Intake Oral 240 ml 1120 ml 240 ml # Voids 1 4 1 # Bowel Movements 0 1 0 Objective Remarks GENERAL: Thin patient in no apparent distress. CARDIOVASCULAR: Regular rate and rhythm. RESPIRATORY: CTAB. NEUROLOGICAL: Awake and alert. PSYCHIATRIC: Insight and judgment normal. 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 (2) Hemiparesis affecting right side as late effect of cerebrovascular accident (CVA) ICD Code: I69.351 Status: Chronic (3) Shortness of breath ICD Code: R06.02 Status: Resolved (4) Fever ICD Code: R50.9 Status: Resolved (5) Abdominal pain ICD Code: R10.9 Status: Resolved (6) Hypertensive emergency ICD Code: I10 Status: Resolved (7) Metabolic acidosis ICD Code: E87.2 Status: Resolved (8) UTI (urinary tract infection) ICD Code: N39.0 Status: Resolved (9) Vaginal discharge ICD Code: N89.8 Status: Resolved (10) Increased urinary frequency ICD Code: R35.0 Status: Resolved Assessment and Plan Left basal ganglia bleed with 4mm MLS with dense Right hemiparesis, stable secondary to cocaine and uncontrolled hypertension Neurosurgery, Dr. Vengeas has evaluated the patient. The bleed has been stable on repeat head CT. No surgery needed. Speech therapy indicated soft diet with thin liquids Occupational therapy indicates OT at rehabilitation. Patient will need to continue occupational therapy until discharge Physical therapy indicating PT at rehabilitation. We'll need to continue physical therapy, continue right AFO. Norflex for muscle spasms Abdominal pain: Resolved Leukocytosis resolved CT scan did not indicate any abnormality SOB: Resolved. Chest x-ray without acute abnormality. 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 No signs of central DI Urinalysis was performed which did not indicate any signs of infection Continue Belladonna rectal suppository Hypertension: Controlled Norvasc 10 mg daily Vasotec, clonidine as needed Monitor BP Hypokalemia: Resolved. Patient is on potassium replacement Monitor BMP as needed Alcohol and cocaine abuse dependence patient previously counseled. Status post thiamine Tobacco abuse Counseled on cessation Chronic hepatitis C, chronic Patient with chronic transaminitis continue to follow periodically. 11/05 AST and ALT improved from prior LFTs. Liver ultrasound showed fatty infiltration Anxiety: Controlled Seroquel low-dose initiated on 05/27. Bowel regimen: Justyna-Colace, magnesium hydroxide as needed. DVT prophylaxis Sequential compression devices. Discharge Planning Occupational therapy recommends shower bench, 3-1 bedside commode for discharge. PT recommends right AFO. CM working on placement. 12/07/16: CM trying to resolve issue with medicaid on hold. Elisabeth Church Dec 17, 2016 09:17
[2016-12-17 20:00] VITALS: BP 133/84; PULSE 91; RESP 20; TEMP 98.9; O2SAT 94
[2016-12-17] MEDS: QUEtiapine FUMARATE 25 MG TAB PO SCH (20:23)
[2016-12-17] MEDS: BELLADONNA ALKALOIDS/OPIUM 60 MG SUPP RECTAL SCH (20:24)
[2016-12-18 08:00] VITALS: BP 118/81; PULSE 80; RESP 16; TEMP 98; O2SAT 94
[2016-12-18] MEDS: GABAPENTIN 100 MG CAP PO SCH ×3 (08:42→17:27)
[2016-12-18] MEDS: FAMOTIDINE 20 MG TAB PO SCH ×2 (08:42→20:05)
[2016-12-18] MEDS: POTASSIUM CHLORIDE 10 MEQ CONTROLLED RELEASE TAB PO SCH (08:42)
--- NOTE | 2016-12-18 16:11 | HHI.PR ---
Subjective Remarks Patient evaluated this morning. No acute complaints. No change in clinical status. Objective Vitals Vital Signs Date Time Temp Pulse Resp B/P Pulse Ox O2 Delivery O2 Flow Rate FiO2 12/18/16 08:00 98.0 80 16 118/81 94 12/17/16 20:00 98.9 91 20 133/84 94 I/O 12/17/16 12/17/16 12/17/16 12/18/16 12/18/16 12/18/16 07:00 15:00 23:00 07:00 15:00 23:00 Intake Total 240 ml 850 ml 1380 ml Output Total 975 ml Balance 240 ml -125 ml 1380 ml Intake Oral 240 ml 850 ml 1380 ml Output Urine Total 975 ml # Voids 1 1 5 # Bowel Movements 0 1 Objective Remarks GENERAL: Thin patient in no apparent distress. CARDIOVASCULAR: Regular rate and rhythm. RESPIRATORY: RR normal. GASTROINTESTINAL: Mildly distended abdomen, chronic; non-tender. NEUROLOGICAL: Awake and alert. PSYCHIATRIC: Insight and judgment normal. 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 (2) Hemiparesis affecting right side as late effect of cerebrovascular accident (CVA) ICD Code: I69.351 Status: Chronic (3) Shortness of breath ICD Code: R06.02 Status: Resolved (4) Fever ICD Code: R50.9 Status: Resolved (5) Abdominal pain ICD Code: R10.9 Status: Resolved (6) Hypertensive emergency ICD Code: I10 Status: Resolved (7) Metabolic acidosis ICD Code: E87.2 Status: Resolved (8) UTI (urinary tract infection) ICD Code: N39.0 Status: Resolved (9) Vaginal discharge ICD Code: N89.8 Status: Resolved (10) Increased urinary frequency ICD Code: R35.0 Status: Resolved Assessment and Plan Left basal ganglia bleed with 4mm MLS with dense Right hemiparesis, stable secondary to cocaine and uncontrolled hypertension Neurosurgery, Dr. Venegas has evaluated the patient. The bleed has been stable on repeat head CT. No surgery needed. Speech therapy indicated soft diet with thin liquids Occupational therapy indicates OT at rehabilitation. Patient will need to continue occupational therapy until discharge Physical therapy indicating PT at rehabilitation. We'll need to continue physical therapy, continue right AFO. Norflex for muscle spasms Abdominal pain: Resolved Leukocytosis resolved CT scan did not indicate any abnormality SOB: Resolved. Chest x-ray without acute abnormality. 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 No signs of central DI Urinalysis was performed which did not indicate any signs of infection Continue Belladonna rectal suppository Hypertension: Controlled Norvasc 10 mg daily Vasotec, clonidine as needed Monitor BP Hypokalemia: Resolved. Patient is on potassium replacement Monitor BMP as needed Alcohol and cocaine abuse dependence patient previously counseled. Status post thiamine Tobacco abuse Counseled on cessation Chronic hepatitis C, chronic Patient with chronic transaminitis continue to follow periodically. 11/05 AST and ALT improved from prior LFTs. Liver ultrasound showed fatty infiltration Anxiety: Controlled Seroquel low-dose initiated on 05/27. Bowel regimen: Justyna-Colace, magnesium hydroxide as needed. DVT prophylaxis Sequential compression devices. Discharge Planning Occupational therapy recommends shower bench, 3-1 bedside commode for discharge. PT recommends right AFO. CM working on placement. 12/07/16: CM trying to resolve issue with medicaid on hold. Elisabeth Church Dec 18, 2016 16:11
[2016-12-18] MEDS: BELLADONNA ALKALOIDS/OPIUM 60 MG SUPP RECTAL SCH (20:05)
[2016-12-18] MEDS: QUEtiapine FUMARATE 25 MG TAB PO SCH (20:05)
[2016-12-18 21:12] VITALS: BP 124/88; PULSE 86; RESP 18; TEMP 97.3; O2SAT 97
[2016-12-19 08:00] VITALS: BP 125/80; PULSE 77; RESP 20; TEMP 97; O2SAT 96
[2016-12-19] MEDS: GABAPENTIN 100 MG CAP PO SCH ×3 (08:18→17:03)
[2016-12-19] MEDS: POTASSIUM CHLORIDE 10 MEQ CONTROLLED RELEASE TAB PO SCH (08:19)
[2016-12-19] MEDS: FAMOTIDINE 20 MG TAB PO SCH ×2 (08:19→21:22)
--- NOTE | 2016-12-19 09:14 | HHI.PR ---
Subjective Remarks No acute complaints. No change in clinical status. Objective Vitals Vital Signs Date Time Temp Pulse Resp B/P Pulse Ox O2 Delivery O2 Flow Rate FiO2 12/19/16 08:00 97.0 77 20 125/80 96 12/18/16 21:12 97.3 86 18 124/88 97 I/O 12/18/16 12/18/16 12/18/16 12/19/16 12/19/16 12/19/16 07:00 15:00 23:00 07:00 15:00 23:00 Intake Total 1380 ml Balance 1380 ml Intake Oral 1380 ml # Voids 5 2 1 # Bowel Movements 1 Objective Remarks GENERAL: Thin patient in no apparent distress. CARDIOVASCULAR: Regular rate and rhythm. RESPIRATORY: RR normal. CTAB. GASTROINTESTINAL: Abdomen soft, nontender, nondistended. NEUROLOGICAL: Awake and alert. PSYCHIATRIC: Insight and judgment normal. 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 (2) Hemiparesis affecting right side as late effect of cerebrovascular accident (CVA) ICD Code: I69.351 Status: Chronic (3) Shortness of breath ICD Code: R06.02 Status: Resolved (4) Fever ICD Code: R50.9 Status: Resolved (5) Abdominal pain ICD Code: R10.9 Status: Resolved (6) Hypertensive emergency ICD Code: I10 Status: Resolved (7) Metabolic acidosis ICD Code: E87.2 Status: Resolved (8) UTI (urinary tract infection) ICD Code: N39.0 Status: Resolved (9) Vaginal discharge ICD Code: N89.8 Status: Resolved (10) Increased urinary frequency ICD Code: R35.0 Status: Resolved Assessment and Plan Left basal ganglia bleed with 4mm MLS with dense Right hemiparesis, stable secondary to cocaine and uncontrolled hypertension Neurosurgery, Dr. Venegas has evaluated the patient. The bleed has been stable on repeat head CT. No surgery needed. Speech therapy indicated soft diet with thin liquids Occupational therapy indicates OT at rehabilitation. Patient will need to continue occupational therapy until discharge Physical therapy indicating PT at rehabilitation. We'll need to continue physical therapy, continue right AFO. Norflex for muscle spasms Abdominal pain: Resolved Leukocytosis resolved CT scan did not indicate any abnormality SOB: Resolved. Chest x-ray without acute abnormality. 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 No signs of central DI Urinalysis was performed which did not indicate any signs of infection Continue Belladonna rectal suppository Hypertension: Controlled Norvasc 10 mg daily Vasotec, clonidine as needed Monitor BP Hypokalemia: Resolved. Patient is on potassium replacement Monitor BMP as needed Alcohol and cocaine abuse dependence patient previously counseled. Status post thiamine Tobacco abuse Counseled on cessation Chronic hepatitis C, chronic Patient with chronic transaminitis continue to follow periodically. 11/05 AST and ALT improved from prior LFTs. Liver ultrasound showed fatty infiltration Anxiety: Controlled Seroquel low-dose initiated on 05/27. Bowel regimen: Justyna-Colace, magnesium hydroxide as needed. DVT prophylaxis Sequential compression devices. Discharge Planning Occupational therapy recommends shower bench, 3-1 bedside commode for discharge. PT recommends right AFO. CM working on placement. 12/07/16: CM trying to resolve issue with medicaid on hold. Elisabeth Church Dec 19, 2016 09:14
[2016-12-19 20:51] VITALS: BP 120/90; PULSE 88; RESP 18; TEMP 98.4; O2SAT 94
[2016-12-19] MEDS: QUEtiapine FUMARATE 25 MG TAB PO SCH (21:00)
[2016-12-19] MEDS: BELLADONNA ALKALOIDS/OPIUM 60 MG SUPP RECTAL SCH (21:22)
--- NOTE | 2016-12-20 08:53 | HHI.PR ---
Subjective Remarks No acute complaints. No change in clinical status. Objective Vitals Vital Signs Date Time Temp Pulse Resp B/P Pulse Ox O2 Delivery O2 Flow Rate FiO2 12/19/16 20:51 98.4 88 18 120/90 94 I/O 12/19/16 12/19/16 12/19/16 12/20/16 12/20/16 12/20/16 07:00 15:00 23:00 07:00 15:00 23:00 Intake Total 1140 ml Balance 1140 ml Intake Oral 1140 ml # Voids 1 3 3 3 # Bowel Movements 0 0 Objective Remarks GENERAL: Thin patient in no apparent distress. CARDIOVASCULAR: Regular rate and rhythm. RESPIRATORY: RR normal. CTAB. GASTROINTESTINAL: Abdomen soft, nontender, nondistended. NEUROLOGICAL: Awake and alert. PSYCHIATRIC: Insight and judgment normal. 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 (2) Hemiparesis affecting right side as late effect of cerebrovascular accident (CVA) ICD Code: I69.351 Status: Chronic (3) Shortness of breath ICD Code: R06.02 Status: Resolved (4) Fever ICD Code: R50.9 Status: Resolved (5) Abdominal pain ICD Code: R10.9 Status: Resolved (6) Hypertensive emergency ICD Code: I10 Status: Resolved (7) Metabolic acidosis ICD Code: E87.2 Status: Resolved (8) UTI (urinary tract infection) ICD Code: N39.0 Status: Resolved (9) Vaginal discharge ICD Code: N89.8 Status: Resolved (10) Increased urinary frequency ICD Code: R35.0 Status: Resolved Assessment and Plan Left basal ganglia bleed with 4mm MLS with dense Right hemiparesis, stable secondary to cocaine and uncontrolled hypertension Neurosurgery, Dr. Venegas has evaluated the patient. The bleed has been stable on repeat head CT. No surgery needed. Speech therapy indicated soft diet with thin liquids Occupational therapy indicates OT at rehabilitation. Patient will need to continue occupational therapy until discharge Physical therapy indicating PT at rehabilitation. We'll need to continue physical therapy, continue right AFO. Norflex for muscle spasms Abdominal pain: Resolved Leukocytosis resolved CT scan did not indicate any abnormality SOB: Resolved. Chest x-ray without acute abnormality. 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 No signs of central DI Urinalysis was performed which did not indicate any signs of infection Continue Belladonna rectal suppository Hypertension: Controlled Norvasc 10 mg daily Vasotec, clonidine as needed Monitor BP Hypokalemia: Resolved. Patient is on potassium replacement Monitor BMP as needed Alcohol and cocaine abuse dependence patient previously counseled. Status post thiamine Tobacco abuse Counseled on cessation Chronic hepatitis C, chronic Patient with chronic transaminitis continue to follow periodically. 11/05 AST and ALT improved from prior LFTs. Liver ultrasound showed fatty infiltration Anxiety: Controlled Seroquel low-dose initiated on 05/27. Bowel regimen: Justyna-Colace, magnesium hydroxide as needed. DVT prophylaxis Sequential compression devices. Discharge Planning Occupational therapy recommends shower bench, 3-1 bedside commode for discharge. PT recommends right AFO. CM working on placement. 12/07/16: CM trying to resolve issue with medicaid on hold. Elisabeth Church Dec 20, 2016 08:53
[2016-12-20 09:31] VITALS: BP 100/64; PULSE 79; RESP 16; TEMP 98.1; O2SAT 95
[2016-12-20] MEDS: POTASSIUM CHLORIDE 10 MEQ CONTROLLED RELEASE TAB PO SCH (09:47)
[2016-12-20] MEDS: FAMOTIDINE 20 MG TAB PO SCH ×2 (09:47→20:05)
[2016-12-20] MEDS: GABAPENTIN 100 MG CAP PO SCH ×3 (09:47→16:58)
[2016-12-20 20:00] VITALS: BP 119/86; PULSE 91; RESP 20; TEMP 97.5; O2SAT 99
[2016-12-20] MEDS: QUEtiapine FUMARATE 25 MG TAB PO SCH (20:04)
[2016-12-20] MEDS: BELLADONNA ALKALOIDS/OPIUM 60 MG SUPP RECTAL SCH (20:05)
[2016-12-21 08:00] VITALS: BP 107/78; PULSE 83; RESP 16; TEMP 98; O2SAT 95
[2016-12-21] MEDS: FAMOTIDINE 20 MG TAB PO SCH ×2 (08:28→20:41)
[2016-12-21] MEDS: POTASSIUM CHLORIDE 10 MEQ CONTROLLED RELEASE TAB PO SCH (08:28)
[2016-12-21] MEDS: GABAPENTIN 100 MG CAP PO SCH ×3 (08:28→17:30)
--- NOTE | 2016-12-21 15:18 | HHI.PR ---
Subjective Remarks Follow up on patient with h/o hemorrhagic stroke and subsequent right sided hemiparesis. Patient denies any acute complaints at this time. Patient does report some slight improvement in right sided LE strength. Objective Vitals Vital Signs Date Time Temp Pulse Resp B/P Pulse Ox O2 Delivery O2 Flow Rate FiO2 12/21/16 08:00 98.0 83 16 107/78 95 12/20/16 20:00 97.5 91 20 119/86 99 I/O 12/20/16 12/20/16 12/20/16 12/21/16 12/21/16 12/21/16 07:00 15:00 23:00 07:00 15:00 23:00 Intake Total 1680 ml 240 ml 1020 ml Balance 1680 ml 240 ml 1020 ml Intake Oral 1680 ml 240 ml 1020 ml # Voids 3 4 2 3 # Bowel Movements 0 0 0 0 Objective Remarks GENERAL: Thin patient in no apparent distress. CARDIOVASCULAR: Regular rate and rhythm. RESPIRATORY: RR normal. CTAB. GASTROINTESTINAL: Abdomen soft, nontender, nondistended. NEUROLOGICAL: Awake and alert. Slight improvement noted in RLE 10/28. PSYCHIATRIC: Insight and judgment normal. Procedures None Urinary Catheter: No Vascular Central Line Catheter: No Procedures None Medications and IVs Current Medications Medications (Trade) Dose Ordered Sig/Nicole Route Start Time Stop Time Status Last Admin (Neurontin) 100 mg TID PO 05/21/16 18:00 12/21/16 11:39 (SEROquel) 12.5 mg HS PO 05/27/16 21:00 12/20/16 20:04 (Pill Splitter) 1 ea UNSCH PRN OTHER 05/27/16 11:15 (KCl) 10 meq DAILY PO 06/06/16 10:00 12/21/16 08:28 (Mag-Al Plus Susp Liq) 30 ml Q6H PRN PO 06/09/16 13:30 11/06/16 22:31 (Tums Chew) 500 mg Q6H PRN CHEW 06/09/16 13:30 07/31/16 08:48 (Zofran Odt) 4 mg Q6H PRN PO 06/18/16 10:00 08/29/16 04:28 (B & O Supp) 60 mg HS RECTAL 08/03/16 21:00 12/20/16 20:05 (Justyna-Colace) 2 tab BID PRN PO 08/02/16 17:00 11/13/16 15:37 (Pepcid) 20 mg BID PO 08/07/16 21:00 12/21/16 08:28 (Norflex Cr) 100 mg Q12H PRN PO 08/14/16 12:00 12/14/16 20:40 (Tylenol) 650 mg Q6H PRN PO 08/29/16 08:15 10/01/16 21:36 (Norvasc) 10 mg DAILY PO 09/04/16 09:00 12/21/16 08:28 (Milk Of [place]) 30 ml Q6H PRN PO 10/23/16 17:15 11/24/16 20:13 A/P Problem List: (1) 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 (2) Hemiparesis affecting right side as late effect of cerebrovascular accident (CVA) ICD Code: I69.351 Status: Chronic (3) Shortness of breath ICD Code: R06.02 Status: Resolved (4) Fever ICD Code: R50.9 Status: Resolved (5) Abdominal pain ICD Code: R10.9 Status: Resolved (6) Hypertensive emergency ICD Code: I10 Status: Resolved (7) Metabolic acidosis ICD Code: E87.2 Status: Resolved (8) UTI (urinary tract infection) ICD Code: N39.0 Status: Resolved (9) Vaginal discharge ICD Code: N89.8 Status: Resolved (10) Increased urinary frequency ICD Code: R35.0 Status: Resolved Assessment and Plan Left basal ganglia bleed with 4mm MLS with dense Right hemiparesis, slight improvement RLE secondary to cocaine and uncontrolled hypertension Neurosurgery, Dr. Venegas has evaluated the patient. The bleed has been stable on repeat head CT. No surgery needed. Speech therapy indicated soft diet with thin liquids Occupational therapy indicates OT at rehabilitation. Patient will need to continue occupational therapy until discharge Physical therapy indicating PT at rehabilitation. We'll need to continue physical therapy, continue right AFO. Norflex for muscle spasms Abdominal pain: Resolved Leukocytosis resolved CT scan did not indicate any abnormality SOB: Resolved. Chest x-ray without acute abnormality. 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 No signs of central DI Urinalysis was performed which did not indicate any signs of infection Continue Belladonna rectal suppository Hypertension: Controlled Norvasc 10 mg daily Vasotec, clonidine as needed Monitor BP Hypokalemia: Resolved. Patient is on potassium replacement Monitor BMP as needed Alcohol and cocaine abuse dependence patient previously counseled. Status post thiamine Tobacco abuse Counseled on cessation Chronic hepatitis C, chronic Patient with chronic transaminitis continue to follow periodically. 11/05 AST and ALT improved from prior LFTs. Liver ultrasound showed fatty infiltration Anxiety: Controlled Seroquel low-dose initiated on 05/27. Constipation: No BM since 12/18/16 Continue with bowel regimen Justyna-Colace, magnesium hydroxide now and continue as needed. Monitor for successful BM DVT prophylaxis Sequential compression devices. Discharge Planning Occupational therapy recommends shower bench, 3-1 bedside commode for discharge. PT recommends right AFO. CM working on placement. 12/07/16: CM trying to resolve issue with medicaid on hold. Marjorie Vaughn Dec 21, 2016 15:18
[2016-12-21] MEDS ORDERED: DOCUSATE SODIUM 50 MG/SENNA 8.6 MG TAB PO ONE (15:30)
[2016-12-21] MEDS ORDERED: MAGNESIUM HYDROXIDE SUSP 30 ML CUP PO ONE (15:30)
[2016-12-21 20:00] VITALS: BP 124/85; PULSE 89; RESP 22; TEMP 99.1; O2SAT 96
[2016-12-21] MEDS: BELLADONNA ALKALOIDS/OPIUM 60 MG SUPP RECTAL SCH (20:41)
[2016-12-21] MEDS: QUEtiapine FUMARATE 25 MG TAB PO SCH (20:41)
[2016-12-22] MEDS: FAMOTIDINE 20 MG TAB PO SCH ×2 (08:26→20:50)
[2016-12-22] MEDS: POTASSIUM CHLORIDE 10 MEQ CONTROLLED RELEASE TAB PO SCH (08:26)
[2016-12-22] MEDS: GABAPENTIN 100 MG CAP PO SCH ×3 (08:26→16:14)
[2016-12-22 08:33] VITALS: BP 124/72; PULSE 68; RESP 14; TEMP 95.8; O2SAT 99
--- NOTE | 2016-12-22 13:28 | HHI.PR ---
Subjective Remarks Follow up on patient with h/o hemorrhagic stroke and subsequent right sided hemiparesis. Patient seen and examined. No acute complaints including no issues with chest pain, shortness of breath or abdominal pain. Patient reports eating well with a good appetite. Objective Vitals Vital Signs Date Time Temp Pulse Resp B/P Pulse Ox O2 Delivery O2 Flow Rate FiO2 12/22/16 08:33 95.8 68 14 124/72 99 12/21/16 20:00 99.1 89 22 124/85 96 I/O 12/21/16 12/21/16 12/21/16 12/22/16 12/22/16 12/22/16 07:00 15:00 23:00 07:00 15:00 23:00 Intake Total 240 ml 1020 ml 220 ml 220 ml Output Total 0 ml Balance 240 ml 1020 ml 220 ml 220 ml Intake Oral 240 ml 1020 ml 220 ml 220 ml Stool Total 0 ml # Voids 2 3 1 1 # Bowel Movements 0 0 0 Objective Remarks GENERAL: Thin patient in no apparent distress. Lying in hospital bed. CARDIOVASCULAR: Regular rate and rhythm. RESPIRATORY: RR normal. CTAB. GASTROINTESTINAL: Abdomen soft, nontender, nondistended. NEUROLOGICAL: Awake and alert. Slight improvement noted in RLE 10/28. PSYCHIATRIC: Insight and judgment normal. Procedures None Urinary Catheter: No Vascular Central Line Catheter: No Procedures None Medications and IVs Current Medications Medications (Trade) Dose Ordered Sig/Nicole Route Start Time Stop Time Status Last Admin (Neurontin) 100 mg TID PO 05/21/16 18:00 12/22/16 11:35 (SEROquel) 12.5 mg HS PO 05/27/16 21:00 12/21/16 20:41 (Pill Splitter) 1 ea UNSCH PRN OTHER 05/27/16 11:15 (KCl) 10 meq DAILY PO 06/06/16 10:00 12/22/16 08:26 (Mag-Al Plus Susp Liq) 30 ml Q6H PRN PO 06/09/16 13:30 11/06/16 22:31 (Tums Chew) 500 mg Q6H PRN CHEW 06/09/16 13:30 07/31/16 08:48 (Zofran Odt) 4 mg Q6H PRN PO 06/18/16 10:00 08/29/16 04:28 (B & O Supp) 60 mg HS RECTAL 08/03/16 21:00 12/21/16 20:41 (Justyna-Colace) 2 tab BID PRN PO 08/02/16 17:00 11/13/16 15:37 (Pepcid) 20 mg BID PO 08/07/16 21:00 12/22/16 08:26 (Norflex Cr) 100 mg Q12H PRN PO 08/14/16 12:00 12/14/16 20:40 (Tylenol) 650 mg Q6H PRN PO 08/29/16 08:15 10/01/16 21:36 (Norvasc) 10 mg DAILY PO 09/04/16 09:00 12/22/16 08:26 (Milk Of iPa Liq) 30 ml Q6H PRN PO 10/23/16 17:15 11/24/16 20:13 A/P Problem List: (1) 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 (2) Hemiparesis affecting right side as late effect of cerebrovascular accident (CVA) ICD Code: I69.351 Status: Chronic (3) Shortness of breath ICD Code: R06.02 Status: Resolved (4) Fever ICD Code: R50.9 Status: Resolved (5) Abdominal pain ICD Code: R10.9 Status: Resolved (6) Hypertensive emergency ICD Code: I10 Status: Resolved (7) Metabolic acidosis ICD Code: E87.2 Status: Resolved (8) UTI (urinary tract infection) ICD Code: N39.0 Status: Resolved (9) Vaginal discharge ICD Code: N89.8 Status: Resolved (10) Increased urinary frequency ICD Code: R35.0 Status: Resolved Assessment and Plan Left basal ganglia bleed with 4mm MLS with dense Right hemiparesis, slight improvement RLE secondary to cocaine and uncontrolled hypertension Neurosurgery, Dr. Venegas has evaluated the patient. The bleed has been stable on repeat head CT. No surgery needed. Speech therapy indicated soft diet with thin liquids Occupational therapy indicates OT at rehabilitation. Patient will need to continue occupational therapy until discharge Physical therapy indicating PT at rehabilitation. We'll need to continue physical therapy, continue right AFO. Norflex for muscle spasms Urged patient to participate as much as possible with physical therapy in order to regain strength and maximize functionality Abdominal pain: Resolved Leukocytosis resolved CT scan did not indicate any abnormality SOB: Resolved. Chest x-ray without acute abnormality. 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 No signs of central DI Urinalysis was performed which did not indicate any signs of infection Discontinue Belladonna rectal suppository Hypertension: Well-controlled Norvasc 10 mg daily Vasotec, clonidine as needed Monitor BP Hypokalemia: Resolved. Patient is on potassium replacement Monitor BMP as needed Repeat lab ordered for tomorrow a.m. Alcohol and cocaine abuse dependence patient previously counseled. Status post thiamine Tobacco abuse Counseled on cessation Chronic hepatitis C, chronic Patient with chronic transaminitis continue to follow periodically. 11/05 AST and ALT improved from prior LFTs. Liver ultrasound showed fatty infiltration Recheck LFTs in a.m. Anxiety: Controlled Seroquel low-dose initiated on 05/27. Constipation: No BM since 12/18/16 Continue with bowel regimen Justyna-Colace, magnesium hydroxide given yesterday Continue with Justyna-Colace twice a day, add MiraLAX, Dulcolax supp prn Monitor for successful BM DVT prophylaxis Sequential compression devices. Lovenox 40 mg daily(will check creatinine level tomorrow following lab test and adjust dose if indicated) Discharge Planning Occupational therapy recommends shower bench, 3-1 bedside commode for discharge. PT recommends right AFO. CM working on placement. 12/07/16: CM trying to resolve issue with medicaid on hold. Marjorie Vaughn Dec 22, 2016 13:28
[2016-12-22] MEDS ORDERED: BISACODYL 10 MG SUPP RECTAL PRN (14:45)
[2016-12-22] MEDS ORDERED: POLYETHYLENE GLYCOL 17 GM PKG PO ONE (14:45)
[2016-12-22] MEDS: DOCUSATE SODIUM 50 MG/SENNA 8.6 MG TAB PO SCH ×2 (14:45→20:50)
[2016-12-22] MEDS: ENOXAPARIN SODIUM 40 MG/0.4 ML SYRINGE SQ SCH (15:00)
[2016-12-22 20:00] VITALS: BP 135/85; PULSE 68; RESP 18; TEMP 98.6; O2SAT 99
[2016-12-22] MEDS: QUEtiapine FUMARATE 25 MG TAB PO SCH (20:49)
[2016-12-23 06:49] LABS: CHLORIDE 102 MEQ/L (98-107); POTASSIUM 3.8 MEQ/L (3.5-5.1); SODIUM (NA) 138 MEQ/L (136-145)
[2016-12-23 06:53] LABS: ANION GAP 10 MEQ/L (5-15); BICARBONATE 26.5 MEQ/L (21.0-32.0); BLOOD UREA NITROGEN 13 MG/DL (7-18)
[2016-12-23 06:56] LABS: ALT (GPT) 281 U/L (10-53); AST (GOT) 157 U/L (15-37); GLOMERULAR FILTRATION RATE 96 ML/MIN (>89)
[2016-12-23 06:57] LABS: TOTAL BILIRUBIN ADULT 0.4 MG/DL (0.2-1.0)
[2016-12-23 06:59] LABS: ALKALINE PHOSPHATASE 97 U/L (45-117)
[2016-12-23 08:00] VITALS: BP 117/75; PULSE 77; RESP 18; TEMP 98; O2SAT 97
[2016-12-23] MEDS: DOCUSATE SODIUM 50 MG/SENNA 8.6 MG TAB PO SCH ×2 (09:29→20:22)
[2016-12-23] MEDS: GABAPENTIN 100 MG CAP PO SCH ×3 (09:29→16:49)
[2016-12-23] MEDS: POTASSIUM CHLORIDE 10 MEQ CONTROLLED RELEASE TAB PO SCH (09:29)
[2016-12-23] MEDS: FAMOTIDINE 20 MG TAB PO SCH ×2 (09:29→20:21)
--- NOTE | 2016-12-23 10:27 | HHI.PR ---
Subjective Remarks Follow up on patient with h/o hemorrhagic stroke and subsequent right sided hemiparesis. Patient seen and examined. She is upset because she said she had a difficult night last night and did not sleep. Patient refusing Lovenox. Lengthy discussion with patient regarding the importance of Lovenox to protect her from developing blood clots especially in light of the fact that she is not participating much with physical therapy. Patient continues to refuse and states that her blood is thin enough. Patient then asked me to go away. Objective Vitals Vital Signs Date Time Temp Pulse Resp B/P Pulse Ox O2 Delivery O2 Flow Rate FiO2 12/22/16 20:00 98.6 68 18 135/85 99 I/O 12/22/16 12/22/16 12/22/16 12/23/16 12/23/16 12/23/16 07:00 15:00 23:00 07:00 15:00 23:00 Intake Total 220 ml Balance 220 ml Intake Oral 220 ml # Voids 1 6 1 # Bowel Movements 0 Result Diagram: 12/23/16 0620 Objective Remarks GENERAL: Thin patient in no apparent distress. Lying in hospital bed. CARDIOVASCULAR: Regular rate and rhythm. RESPIRATORY: RR normal. CTAB. GASTROINTESTINAL: Abdomen soft, nontender, nondistended. NEUROLOGICAL: Awake and alert. Slight improvement noted in RLE 10/28. PSYCHIATRIC: Insight and judgment normal. Procedures None Urinary Catheter: No Vascular Central Line Catheter: No Procedures None Medications and IVs Current Medications Medications (Trade) Dose Ordered Sig/Nicole Route Start Time Stop Time Status Last Admin (Neurontin) 100 mg TID PO 05/21/16 18:00 12/23/16 09:29 (SEROquel) 12.5 mg HS PO 05/27/16 21:00 12/22/16 20:49 (Pill Splitter) 1 ea UNSCH PRN OTHER 05/27/16 11:15 (KCl) 10 meq DAILY PO 06/06/16 10:00 12/23/16 09:29 (Mag-Al Plus Susp Liq) 30 ml Q6H PRN PO 06/09/16 13:30 11/06/16 22:31 (Tums Chew) 500 mg Q6H PRN CHEW 06/09/16 13:30 07/31/16 08:48 (Zofran Odt) 4 mg Q6H PRN PO 06/18/16 10:00 08/29/16 04:28 (Justyna-Colace) 2 tab BID PRN PO 08/02/16 17:00 11/13/16 15:37 (Pepcid) 20 mg BID PO 08/07/16 21:00 12/23/16 09:29 (Norflex Cr) 100 mg Q12H PRN PO 08/14/16 12:00 12/14/16 20:40 (Tylenol) 650 mg Q6H PRN PO 08/29/16 08:15 10/01/16 21:36 (Norvasc) 10 mg DAILY PO 09/04/16 09:00 12/23/16 09:29 (Milk Of [place] Liq) 30 ml Q6H PRN PO 10/23/16 17:15 11/24/16 20:13 (Justyna-Colace) 1 tab BID PO 12/22/16 14:45 12/23/16 09:29 (Lovenox Inj) 40 mg Q24H SQ 12/22/16 15:00 A/P Problem List: (1) 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 (2) Hemiparesis affecting right side as late effect of cerebrovascular accident (CVA) ICD Code: I69.351 Status: Chronic (3) Shortness of breath ICD Code: R06.02 Status: Resolved (4) Fever ICD Code: R50.9 Status: Resolved (5) Abdominal pain ICD Code: R10.9 Status: Resolved (6) Hypertensive emergency ICD Code: I10 Status: Resolved (7) Metabolic acidosis ICD Code: E87.2 Status: Resolved (8) UTI (urinary tract infection) ICD Code: N39.0 Status: Resolved (9) Vaginal discharge ICD Code: N89.8 Status: Resolved (10) Increased urinary frequency ICD Code: R35.0 Status: Resolved Assessment and Plan Left basal ganglia bleed with 4mm MLS with dense Right hemiparesis, slight improvement RLE secondary to cocaine and uncontrolled hypertension Neurosurgery, Dr. Venegas has evaluated the patient. The bleed has been stable on repeat head CT. No surgery needed. Speech therapy indicated soft diet with thin liquids Occupational therapy indicates OT at rehabilitation. Patient will need to continue occupational therapy until discharge Physical therapy indicating PT at rehabilitation. We'll need to continue physical therapy, continue right AFO. Norflex for muscle spasms Urged patient to participate as much as possible with physical therapy in order to regain strength and maximize functionality Abdominal pain: Resolved Leukocytosis resolved CT scan did not indicate any abnormality SOB: Resolved. Chest x-ray without acute abnormality. 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 No signs of central DI Urinalysis was performed which did not indicate any signs of infection Discontinued Belladonna rectal suppository Hypertension: Well-controlled Norvasc 10 mg daily Vasotec, clonidine as needed Monitor BP Hypokalemia: Resolved. Patient is on potassium replacement Monitor BMP as needed Repeat lab reveals K level of 3.8 Continue with po repletion Alcohol and cocaine abuse dependence patient previously counseled. Status post thiamine Tobacco abuse Counseled on cessation Chronic hepatitis C, chronic Patient with chronic transaminitis continue to follow periodically. Liver ultrasound showed fatty infiltration AST -> 109 -> 112 -> 82 -> 157 ALT -> 211 -> 220 -> 177 -> 281 Repeat laboratory studies in the next several days Anxiety: Controlled Seroquel low-dose initiated on 05/27. Constipation: per NS, patient had large BM Continue with bowel regimen Continue with Justyna-Colace twice a day and MiraLAX, Dulcolax supp prn Monitor for successful BM DVT prophylaxis Sequential compression devices/ALLISON hose. Lovenox 40 mg daily - patient refusing Lovenox. Lengthy discussion with patient regarding importance of that medication for thrombosis prevention. Patient continues to refuse. Urged patient to increase her participation with physical therapy. Reiterated importance of wearing SCDs at the very least although not as protective although not as protective as the Lovenox. Discharge Planning Occupational therapy recommends shower bench, 3-1 bedside commode for discharge. PT recommends right AFO. CM working on placement. 12/07/16: CM trying to resolve issue with medicaid on hold. Marjorie Vaughn Dec 23, 2016 10:27
[2016-12-23] MEDS: ENOXAPARIN SODIUM 40 MG/0.4 ML SYRINGE SQ SCH (15:00)
[2016-12-23 20:00] VITALS: BP 128/84; PULSE 92; RESP 20; TEMP 98.2; O2SAT 95
[2016-12-23] MEDS: QUEtiapine FUMARATE 25 MG TAB PO SCH (20:21)
[2016-12-24 08:00] VITALS: BP 127/84; PULSE 84; RESP 18; TEMP 97.4; O2SAT 96
[2016-12-24] MEDS: GABAPENTIN 100 MG CAP PO SCH ×3 (08:27→17:01)
[2016-12-24] MEDS: DOCUSATE SODIUM 50 MG/SENNA 8.6 MG TAB PO SCH ×2 (08:27→21:00)
[2016-12-24] MEDS: FAMOTIDINE 20 MG TAB PO SCH ×2 (08:27→21:46)
[2016-12-24] MEDS: POTASSIUM CHLORIDE 10 MEQ CONTROLLED RELEASE TAB PO SCH (08:27)
--- NOTE | 2016-12-24 11:28 | HHI.PR ---
Subjective Remarks Patient seen and examined today. Patient denies any new complaints. No change in clinical status. Patient states that she did have a bowel movement yesterday. Objective Vitals Vital Signs Date Time Temp Pulse Resp B/P Pulse Ox O2 Delivery O2 Flow Rate FiO2 12/24/16 08:00 97.4 84 18 127/84 96 12/23/16 20:00 98.2 92 20 128/84 95 I/O 12/23/16 12/23/16 12/23/16 12/24/16 12/24/16 12/24/16 07:00 15:00 23:00 07:00 15:00 23:00 Intake Total 600 ml 780 ml 400 ml Output Total 2 ml Balance 598 ml 780 ml 400 ml Intake Oral 600 ml 780 ml 400 ml Stool Total 2 ml # Voids 1 3 1 2 # Bowel Movements 0 0 Result Diagram: 12/23/16 0620 Objective Remarks GENERAL: Well-developed, well-nourished, in no acute distress. alert and orientated HEENT: Head is normocephalic without any lesions or masses noted right facial droop. NECK: Trachea midline no deviation. CARDIAC: Regular rhythm, regular rate. S1/S2 are heard. No murmurs gallops or rubs. LUNGS: Clear to auscultation bilaterally. No wheeze, rhonchi or rales. No use of accessory muscles on inspiration or expiration. ABDOMEN: Soft, nontender. Nondistended. Bowel sounds heard in all 4 quadrants. No organomegaly or masses. Negative rebound, negative guarding EXTREMITIES: No edema, pulses are equal bilaterally. No cyanosis or clubbing NEUROLOGY: Mood and affect appear appropriate. Dense right hemiparesis which appears to be improving in the lower extremity. Patient is able to move her right hand second third and fourth digit. 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 Venegas has evaluated the patient. The bleed has been stable on repeat head CT. No surgery needed. Speech therapy has been following the patient continue on soft diet with thin liquids Occupational therapy indicates OT at rehabilitation. Patient will need to continue occupational therapy until discharge Physical therapy indicating PT at rehabilitation. We'll need to continue physical therapy, continue right AFO, Norflex for muscle spasm --trapeze assembly for bed to facilitate functioning --Consulted OT for wheelchair recommendations. Supplied recommendations to case management to provide wheelchair. reconsulted case management to supply wheelchair Patient will likely be able to use a wheelchair and be discharged prior to ambulating out of the hospital or funding available for rehabilitation Right arm pain, controlled Continue Neurontin for right arm neuropathic pain Dysuria, urinary frequency, resolved BNP was performed, sodium level was normal. No signs of central DI Urinalysis was performed which did not indicate any signs of infection Belladonna discontinued, continue monitor urinary output Hypokalemia, controlled Patient continued on potassium supplementation Repeat lab work did indicate potassium level 3.8. Continue monitor as needed Hypertension, stable Norvasc 10 mg daily Vasotec, clonidine as needed Alcohol and cocaine abuse dependence patient previously counseled. Status post thiamine Tobacco abuse Counseled on cessation Chronic hepatitis C, chronic Patient with chronic transaminitis continue to follow monthly. liver ultrasound showed fatty infiltration Anxiety. Controlled Seroquel low-dose initiated on 05/27. Bowel regimen Justyna-Colace as needed DVT prophylaxis Sequential compression devices. Lovenox 40 mg daily. Discharge Planning Discharge planning per case management. Consult case management for wheelchair. Patient will likely be able to use wheelchair and be discharged prior to her being able to be discharged without the wheelchair and home. Jaycob Rebolledo Dec 24, 2016 11:28
[2016-12-24] MEDS: ENOXAPARIN SODIUM 40 MG/0.4 ML SYRINGE SQ SCH (17:03)
[2016-12-24 20:23] VITALS: BP 128/84; PULSE 86; RESP 22; TEMP 97.2; O2SAT 98
[2016-12-24] MEDS: QUEtiapine FUMARATE 25 MG TAB PO SCH (21:47)
[2016-12-25 08:00] VITALS: BP 118/69; PULSE 72; RESP 16; TEMP 98.1; O2SAT 98
[2016-12-25] MEDS: POTASSIUM CHLORIDE 10 MEQ CONTROLLED RELEASE TAB PO SCH (09:03)
[2016-12-25] MEDS: FAMOTIDINE 20 MG TAB PO SCH ×2 (09:03→20:33)
[2016-12-25] MEDS: GABAPENTIN 100 MG CAP PO SCH ×3 (09:03→17:00)
[2016-12-25] MEDS: DOCUSATE SODIUM 50 MG/SENNA 8.6 MG TAB PO SCH ×2 (09:06→20:33)
[2016-12-25] MEDS: ENOXAPARIN SODIUM 40 MG/0.4 ML SYRINGE SQ SCH (12:49)
--- NOTE | 2016-12-25 14:29 | HHI.PR ---
Subjective Remarks Patient seen and examined today. Patient denies any new complaints. Patient is cantankerous today. Objective Vitals Vital Signs Date Time Temp Pulse Resp B/P Pulse Ox O2 Delivery O2 Flow Rate FiO2 12/25/16 08:00 98.1 72 16 118/69 98 12/24/16 20:23 97.2 86 22 128/84 98 I/O 12/24/16 12/24/16 12/24/16 12/25/16 12/25/16 12/25/16 07:00 15:00 23:00 07:00 15:00 23:00 Intake Total 400 ml 360 ml Balance 400 ml 360 ml Intake Oral 400 ml 360 ml # Voids 2 2 5 # Bowel Movements 0 1 1 Result Diagram: 12/23/16 0620 Objective Remarks GENERAL: Well-developed, well-nourished, in no acute distress. alert and orientated HEENT: Head is normocephalic without any lesions or masses noted right facial droop. NECK: Trachea midline no deviation. CARDIAC: Regular rhythm, regular rate. S1/S2 are heard. No murmurs gallops or rubs. LUNGS: Clear to auscultation bilaterally. No wheeze, rhonchi or rales. No use of accessory muscles on inspiration or expiration. ABDOMEN: Soft, nontender. Nondistended. Bowel sounds heard in all 4 quadrants. No organomegaly or masses. Negative rebound, negative guarding EXTREMITIES: No edema, pulses are equal bilaterally. No cyanosis or clubbing NEUROLOGY: Mood and affect appear appropriate. Dense right hemiparesis which appears to be improving in the lower extremity. Patient is able to move her right hand second third and fourth digit. 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 Venegas has evaluated the patient. The bleed has been stable on repeat head CT. No surgery needed. Speech therapy has been following the patient continue on soft diet with thin liquids Occupational therapy indicates OT at rehabilitation. Patient will need to continue occupational therapy until discharge Physical therapy indicating PT at rehabilitation. We'll need to continue physical therapy, continue right AFO, Norflex for muscle spasm --trapeze assembly for bed to facilitate functioning --Consulted OT for wheelchair recommendations. Supplied recommendations to case management to provide wheelchair. reconsulted case management to supply wheelchair Patient will likely be able to use a wheelchair and be discharged prior to ambulating out of the hospital or funding available for rehabilitation Right arm pain, controlled Continue Neurontin for right arm neuropathic pain Dysuria, urinary frequency, resolved BNP was performed, sodium level was normal. No signs of central DI Urinalysis was performed which did not indicate any signs of infection Belladonna discontinued, continue monitor urinary output Hypokalemia, controlled Patient continued on potassium supplementation Repeat lab work did indicate potassium level 3.8. Continue monitor as needed Hypertension, stable Norvasc 10 mg daily Vasotec, clonidine as needed Alcohol and cocaine abuse dependence patient previously counseled. Status post thiamine Tobacco abuse Counseled on cessation Chronic hepatitis C, chronic Patient with chronic transaminitis continue to follow monthly. liver ultrasound showed fatty infiltration Anxiety. Controlled Seroquel low-dose initiated on 05/27. Bowel regimen Justyna-Colace as needed DVT prophylaxis Sequential compression devices. Lovenox 40 mg daily. Discharge Planning Discharge planning per case management. Consult case management for wheelchair. Patient will likely be able to use wheelchair and be discharged prior to her being able to be discharged without the wheelchair and home. Jaycob Rebolledo Dec 25, 2016 14:29
[2016-12-25 20:00] VITALS: BP 124/88; PULSE 96; RESP 20; TEMP 97.9; O2SAT 97
[2016-12-25] MEDS: QUEtiapine FUMARATE 25 MG TAB PO SCH (20:33)
[2016-12-25] MEDS: ORPHENADRINE CITRATE 100 MG SUSTAINED RELEASE TAB PO PRN (20:33)
[2016-12-26] MEDS: POTASSIUM CHLORIDE 10 MEQ CONTROLLED RELEASE TAB PO SCH (07:54)
[2016-12-26] MEDS: FAMOTIDINE 20 MG TAB PO SCH ×2 (07:54→21:17)
[2016-12-26] MEDS: GABAPENTIN 100 MG CAP PO SCH ×3 (07:54→16:59)
[2016-12-26] MEDS: DOCUSATE SODIUM 50 MG/SENNA 8.6 MG TAB PO SCH ×2 (07:55→21:18)
[2016-12-26 08:00] VITALS: BP_SYST 134; BP_SYST 135; BP_DIAS 84; BP_DIAS 87; PULSE 75; PULSE 86; RESP 19; RESP 20; TEMP 97.2; TEMP 97.5; O2SAT 94; O2SAT 96
--- NOTE | 2016-12-26 11:15 | HHI.PR ---
Subjective Remarks Patient seen and examined today. Patient denies any new complaints. No change in clinical status. Objective Vitals Vital Signs Date Time Temp Pulse Resp B/P Pulse Ox O2 Delivery O2 Flow Rate FiO2 12/26/16 08:00 97.2 86 19 135/87 96 12/25/16 20:00 97.9 96 20 124/88 97 I/O 12/25/16 12/25/16 12/25/16 12/26/16 12/26/16 12/26/16 07:00 15:00 23:00 07:00 15:00 23:00 Intake Total 360 ml 240 ml Balance 360 ml 240 ml Intake Oral 360 ml 240 ml # Voids 5 1 1 # Bowel Movements 1 0 0 Result Diagram: 12/23/16 0620 Objective Remarks GENERAL: Well-developed, well-nourished, in no acute distress. alert and orientated HEENT: Head is normocephalic without any lesions or masses noted right facial droop. NECK: Trachea midline no deviation. CARDIAC: Regular rhythm, regular rate. S1/S2 are heard. No murmurs gallops or rubs. LUNGS: Clear to auscultation bilaterally. No wheeze, rhonchi or rales. No use of accessory muscles on inspiration or expiration. ABDOMEN: Soft, nontender. Nondistended. Bowel sounds heard in all 4 quadrants. No organomegaly or masses. Negative rebound, negative guarding EXTREMITIES: No edema, pulses are equal bilaterally. No cyanosis or clubbing NEUROLOGY: Mood and affect appear appropriate. Dense right hemiparesis which appears to be improving in the lower extremity. Patient is able to move her right hand second third and fourth digit. 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 Venegas has evaluated the patient. The bleed has been stable on repeat head CT. No surgery needed. Speech therapy has been following the patient continue on soft diet with thin liquids Occupational therapy indicates OT at rehabilitation. Patient will need to continue occupational therapy until discharge Physical therapy indicating PT at rehabilitation. We'll need to continue physical therapy, continue right AFO, Norflex for muscle spasm --trapeze assembly for bed to facilitate functioning --Consulted OT for wheelchair recommendations. Supplied recommendations to case management to provide wheelchair. reconsulted case management to supply wheelchair Patient will likely be able to use a wheelchair and be discharged prior to ambulating out of the hospital or funding available for rehabilitation Right arm pain, controlled Continue Neurontin for right arm neuropathic pain Dysuria, urinary frequency, resolved BNP was performed, sodium level was normal. No signs of central DI Urinalysis was performed which did not indicate any signs of infection Belladonna discontinued, continue monitor urinary output Hypokalemia, controlled Patient continued on potassium supplementation Repeat lab work did indicate potassium level 3.8. Continue monitor as needed Hypertension, stable Norvasc 10 mg daily Vasotec, clonidine as needed Alcohol and cocaine abuse dependence patient previously counseled. Status post thiamine Tobacco abuse Counseled on cessation Chronic hepatitis C, chronic Patient with chronic transaminitis continue to follow monthly. liver ultrasound showed fatty infiltration Anxiety. Controlled Seroquel low-dose initiated on 05/27. Bowel regimen Justyna-Colace as needed DVT prophylaxis Sequential compression devices. Lovenox 40 mg daily. No change in present treatment plan Discharge Planning Discharge planning per case management. Consult case management for wheelchair. Patient will likely be able to use wheelchair and be discharged prior to her being able to be discharged without the wheelchair and home. Jaycob Rebolledo Dec 26, 2016 11:15
[2016-12-26] MEDS: ENOXAPARIN SODIUM 40 MG/0.4 ML SYRINGE SQ SCH (13:11)
[2016-12-26 20:00] VITALS: BP 129/76; PULSE 88; RESP 20; TEMP 98.8; O2SAT 97
[2016-12-26] MEDS: ORPHENADRINE CITRATE 100 MG SUSTAINED RELEASE TAB PO PRN (21:17)
[2016-12-26] MEDS: QUEtiapine FUMARATE 25 MG TAB PO SCH (21:18)
[2016-12-27] MEDS: POTASSIUM CHLORIDE 10 MEQ CONTROLLED RELEASE TAB PO SCH (07:22)
[2016-12-27] MEDS: GABAPENTIN 100 MG CAP PO SCH ×3 (07:22→16:54)
[2016-12-27] MEDS: DOCUSATE SODIUM 50 MG/SENNA 8.6 MG TAB PO SCH ×2 (07:23→20:51)
[2016-12-27] MEDS: FAMOTIDINE 20 MG TAB PO SCH ×2 (07:23→20:51)
[2016-12-27 08:00] VITALS: BP 121/91; PULSE 77; RESP 16; TEMP 95.8; O2SAT 95
--- NOTE | 2016-12-27 09:19 | HHI.PR ---
Subjective Remarks Follow up on patient with h/o hemorrhagic stroke and subsequent right sided hemiparesis. Patient seen and examined today. Patient denies any new complaints. No change in clinical status. Objective Vitals Vital Signs Date Time Temp Pulse Resp B/P Pulse Ox O2 Delivery O2 Flow Rate FiO2 12/26/16 20:00 98.8 88 20 129/76 97 I/O 12/26/16 12/26/16 12/26/16 12/27/16 12/27/16 12/27/16 07:00 15:00 23:00 07:00 15:00 23:00 Intake Total 240 ml 720 ml 120 ml 240 ml Balance 240 ml 720 ml 120 ml 240 ml Intake Oral 240 ml 720 ml 120 ml 240 ml # Voids 1 4 1 1 1 # Bowel Movements 0 0 0 0 Result Diagram: 12/23/16 0620 Objective Remarks GENERAL: Thin patient in no apparent distress. Lying in hospital bed. CARDIOVASCULAR: Regular rate and rhythm. RESPIRATORY: RR normal. CTAB. GASTROINTESTINAL: Abdomen soft, nontender, nondistended. NEUROLOGICAL: Awake and alert. Slight improvement noted in RLE 10/28. PSYCHIATRIC: Insight and judgment normal. Procedures None Urinary Catheter: No Vascular Central Line Catheter: No Procedures None Medications and IVs Current Medications Medications (Trade) Dose Ordered Sig/Nicole Route Start Time Stop Time Status Last Admin (Neurontin) 100 mg TID PO 05/21/16 18:00 12/27/16 07:22 (SEROquel) 12.5 mg HS PO 05/27/16 21:00 12/26/16 21:18 (Pill Splitter) 1 ea UNSCH PRN OTHER 05/27/16 11:15 (KCl) 10 meq DAILY PO 06/06/16 10:00 12/27/16 07:22 (Mag-Al Plus Susp Liq) 30 ml Q6H PRN PO 06/09/16 13:30 11/06/16 22:31 (Tums Chew) 500 mg Q6H PRN CHEW 06/09/16 13:30 07/31/16 08:48 (Zofran Odt) 4 mg Q6H PRN PO 06/18/16 10:00 08/29/16 04:28 (Justyna-Colace) 2 tab BID PRN PO 08/02/16 17:00 11/13/16 15:37 (Pepcid) 20 mg BID PO 08/07/16 21:00 12/27/16 07:23 (Norflex Cr) 100 mg Q12H PRN PO 08/14/16 12:00 12/26/16 21:17 (Tylenol) 650 mg Q6H PRN PO 08/29/16 08:15 10/01/16 21:36 (Norvasc) 10 mg DAILY PO 09/04/16 09:00 12/27/16 07:22 (Milk Of Magnesia Liq) 30 ml Q6H PRN PO 10/23/16 17:15 11/24/16 20:13 (Justyna-Colace) 1 tab BID PO 12/22/16 14:45 12/27/16 07:23 (Lovenox Inj) 40 mg Q24H SQ 12/22/16 15:00 12/26/16 13:11 A/P Problem List: (1) 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 (2) Hemiparesis affecting right side as late effect of cerebrovascular accident (CVA) ICD Code: I69.351 Status: Chronic (3) Shortness of breath ICD Code: R06.02 Status: Resolved (4) Fever ICD Code: R50.9 Status: Resolved (5) Abdominal pain ICD Code: R10.9 Status: Resolved (6) Hypertensive emergency ICD Code: I10 Status: Resolved (7) Metabolic acidosis ICD Code: E87.2 Status: Resolved (8) UTI (urinary tract infection) ICD Code: N39.0 Status: Resolved (9) Vaginal discharge ICD Code: N89.8 Status: Resolved (10) Increased urinary frequency ICD Code: R35.0 Status: Resolved Assessment and Plan 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 Venegas has evaluated the patient. The bleed has been stable on repeat head CT. No surgery needed. Speech therapy has been following the patient continue on soft diet with thin liquids Occupational therapy indicates OT at rehabilitation. Patient will need to continue occupational therapy until discharge Physical therapy indicating PT at rehabilitation. We'll need to continue physical therapy, continue right AFO. Norflex for muscle spasm --trapeze assembly for bed to facilitate functioning --Consulted OT for wheelchair recommendations. Supplied recommendations to case management to provide wheelchair. reconsulted case management to supply wheelchair Patient will likely be able to use a wheelchair and be discharged prior to ambulating out of the hospital or funding available for rehabilitation Right arm pain, controlled Continue Neurontin for right arm neuropathic pain Dysuria, urinary frequency, resolved BNP was performed, sodium level was normal. No signs of central DI Urinalysis was performed which did not indicate any signs of infection Belladonna discontinued, continue monitor urinary output Hypokalemia, controlled Patient continued on potassium supplementation Repeat lab work did indicate potassium level 3.8. Continue monitor as needed Hypertension, stable Well-controlled at present Norvasc 10 mg daily Vasotec, clonidine as needed Alcohol and cocaine abuse dependence patient previously counseled. Status post thiamine Tobacco abuse Counseled on cessation Chronic hepatitis C, chronic Patient with chronic transaminitis continue to follow monthly. liver ultrasound showed fatty infiltration Anxiety. Controlled Seroquel low-dose initiated on 05/27. Bowel regimen Justyna-Colace as needed last BM 2 days ago continue to monitor for successful BM DVT prophylaxis Sequential compression devices. Lovenox 40 mg daily. No change in present treatment plan Discharge Planning Discharge planning per case management. Consult case management for wheelchair. Patient will likely be able to use wheelchair and be discharged prior to her being able to be discharged without the wheelchair and home. Marjorie Vaughn Dec 27, 2016 09:19
[2016-12-27] MEDS: ENOXAPARIN SODIUM 40 MG/0.4 ML SYRINGE SQ SCH (13:40)
[2016-12-27 20:00] VITALS: BP 147/87; PULSE 93; RESP 18; TEMP 97.2; O2SAT 98
[2016-12-27] MEDS: ORPHENADRINE CITRATE 100 MG SUSTAINED RELEASE TAB PO PRN (20:51)
[2016-12-27] MEDS: QUEtiapine FUMARATE 25 MG TAB PO SCH (22:00)
[2016-12-28] MEDS: GABAPENTIN 100 MG CAP PO SCH ×3 (07:42→16:53)
[2016-12-28] MEDS: DOCUSATE SODIUM 50 MG/SENNA 8.6 MG TAB PO SCH ×2 (07:42→20:35)
[2016-12-28] MEDS: FAMOTIDINE 20 MG TAB PO SCH ×2 (07:42→20:36)
[2016-12-28] MEDS: POTASSIUM CHLORIDE 10 MEQ CONTROLLED RELEASE TAB PO SCH (07:43)
[2016-12-28 08:00] VITALS: BP 121/85; PULSE 81; RESP 18; TEMP 97.9; O2SAT 97
--- NOTE | 2016-12-28 10:36 | HHI.PR ---
Subjective Remarks No acute complaints. No change in clinical status. Objective Vitals Vital Signs Date Time Temp Pulse Resp B/P Pulse Ox O2 Delivery O2 Flow Rate FiO2 12/28/16 08:00 97.9 81 18 121/85 97 12/27/16 20:00 97.2 93 18 147/87 98 I/O 12/27/16 12/27/16 12/27/16 12/28/16 12/28/16 12/28/16 07:00 15:00 23:00 07:00 15:00 23:00 Intake Total 240 ml 720 ml 680 ml 420 ml Balance 240 ml 720 ml 680 ml 420 ml Intake Oral 240 ml 720 ml 680 ml 420 ml # Voids 1 3 5 2 # Bowel Movements 0 2 0 Objective Remarks GENERAL: Thin patient in no apparent distress. CARDIOVASCULAR: Regular rate and rhythm. RESPIRATORY: RR normal. CTAB. GASTROINTESTINAL: Abdomen soft, nontender, nondistended. NEUROLOGICAL: Awake and alert. PSYCHIATRIC: Insight and judgment normal. 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 (2) Hemiparesis affecting right side as late effect of cerebrovascular accident (CVA) ICD Code: I69.351 Status: Chronic (3) Shortness of breath ICD Code: R06.02 Status: Resolved (4) Fever ICD Code: R50.9 Status: Resolved (5) Abdominal pain ICD Code: R10.9 Status: Resolved (6) Hypertensive emergency ICD Code: I10 Status: Resolved (7) Metabolic acidosis ICD Code: E87.2 Status: Resolved (8) UTI (urinary tract infection) ICD Code: N39.0 Status: Resolved (9) Vaginal discharge ICD Code: N89.8 Status: Resolved (10) Increased urinary frequency ICD Code: R35.0 Status: Resolved Assessment and Plan 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 Venegas has evaluated the patient. The bleed has been stable on repeat head CT. No surgery needed. Speech therapy indicated soft diet with thin liquids Occupational therapy indicates OT at rehabilitation. Patient will need to continue occupational therapy until discharge Physical therapy indicating PT at rehabilitation. We'll need to continue physical therapy, continue right AFO. Norflex for muscle spasms Abdominal pain: Resolved Leukocytosis resolved CT scan did not indicate any abnormality SOB: Resolved. Chest x-ray without acute abnormality. 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 No signs of central DI Urinalysis was performed which did not indicate any signs of infection Continue Belladonna rectal suppository Hypertension: Controlled Norvasc 10 mg daily Vasotec, clonidine as needed Monitor BP Hypokalemia: Resolved. Patient is on potassium replacement Monitor BMP as needed Alcohol and cocaine abuse dependence patient previously counseled. Status post thiamine Tobacco abuse Counseled on cessation Chronic hepatitis C, chronic Patient with chronic transaminitis continue to follow periodically. 11/05 AST and ALT improved from prior LFTs. Liver ultrasound showed fatty infiltration Anxiety: Controlled Seroquel low-dose initiated on 05/27. Bowel regimen: Justyna-Colace, magnesium hydroxide as needed. DVT prophylaxis Sequential compression devices. Lovenox 40 mg sq daily. Discharge Planning Occupational therapy recommends shower bench, 3-1 bedside commode for discharge. PT recommends right AFO. CM working on placement. 12/07/16: CM trying to resolve issue with medicaid on hold. Elisabeth Church Dec 28, 2016 10:36
[2016-12-28] MEDS: ENOXAPARIN SODIUM 40 MG/0.4 ML SYRINGE SQ SCH (13:36)
[2016-12-28 20:00] VITALS: BP 125/80; PULSE 81; RESP 20; TEMP 98.5; O2SAT 96
[2016-12-28] MEDS: QUEtiapine FUMARATE 25 MG TAB PO SCH (20:35)
[2016-12-28] MEDS: ORPHENADRINE CITRATE 100 MG SUSTAINED RELEASE TAB PO PRN (20:35)
[2016-12-29 08:00] VITALS: BP 136/94; PULSE 84; RESP 16; TEMP 97.5; O2SAT 96
[2016-12-29] MEDS: FAMOTIDINE 20 MG TAB PO SCH ×2 (08:35→20:22)
[2016-12-29] MEDS: DOCUSATE SODIUM 50 MG/SENNA 8.6 MG TAB PO SCH ×2 (08:36→20:22)
[2016-12-29] MEDS: POTASSIUM CHLORIDE 10 MEQ CONTROLLED RELEASE TAB PO SCH (08:36)
[2016-12-29] MEDS: GABAPENTIN 100 MG CAP PO SCH ×3 (08:36→16:49)
--- NOTE | 2016-12-29 10:31 | HHI.PR ---
Subjective Remarks No acute complaints. No change in clinical status. Objective Vitals Vital Signs Date Time Temp Pulse Resp B/P Pulse Ox O2 Delivery O2 Flow Rate FiO2 12/29/16 08:00 97.5 84 16 136/94 96 12/28/16 20:00 98.5 81 20 125/80 96 I/O 12/28/16 12/28/16 12/28/16 12/29/16 12/29/16 12/29/16 07:00 15:00 23:00 07:00 15:00 23:00 Intake Total 420 ml 830 ml 1120 ml 500 ml Balance 420 ml 830 ml 1120 ml 500 ml Intake Oral 420 ml 830 ml 1120 ml 500 ml # Voids 2 4 2 # Bowel Movements 0 1 0 Objective Remarks GENERAL: Thin patient in no apparent distress. CARDIOVASCULAR: Regular rate and rhythm. RESPIRATORY: RR normal. CTAB. GASTROINTESTINAL: Abdomen soft, nontender, distended. NEUROLOGICAL: Awake and alert. PSYCHIATRIC: Insight and judgment normal. 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 (2) Hemiparesis affecting right side as late effect of cerebrovascular accident (CVA) ICD Code: I69.351 Status: Chronic (3) Shortness of breath ICD Code: R06.02 Status: Resolved (4) Fever ICD Code: R50.9 Status: Resolved (5) Abdominal pain ICD Code: R10.9 Status: Resolved (6) Hypertensive emergency ICD Code: I10 Status: Resolved (7) Metabolic acidosis ICD Code: E87.2 Status: Resolved (8) UTI (urinary tract infection) ICD Code: N39.0 Status: Resolved (9) Vaginal discharge ICD Code: N89.8 Status: Resolved (10) Increased urinary frequency ICD Code: R35.0 Status: Resolved Assessment and Plan 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 Venegas has evaluated the patient. The bleed has been stable on repeat head CT. No surgery needed. Speech therapy indicated soft diet with thin liquids Occupational therapy indicates OT at rehabilitation. Patient will need to continue occupational therapy until discharge Physical therapy indicating PT at rehabilitation. We'll need to continue physical therapy, continue right AFO. Norflex for muscle spasms Abdominal pain: Resolved Leukocytosis resolved CT scan did not indicate any abnormality SOB: Resolved. Chest x-ray without acute abnormality. 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 No signs of central DI Urinalysis was performed which did not indicate any signs of infection Continue Belladonna rectal suppository Hypertension: Controlled Norvasc 10 mg daily Vasotec, clonidine as needed Monitor BP Hypokalemia: Resolved. Patient is on potassium replacement Monitor BMP as needed Alcohol and cocaine abuse dependence patient previously counseled. Status post thiamine Tobacco abuse Counseled on cessation Chronic hepatitis C, chronic Patient with chronic transaminitis continue to follow periodically. 11/05 AST and ALT improved from prior LFTs. Liver ultrasound showed fatty infiltration Anxiety: Controlled Seroquel low-dose initiated on 05/27. Bowel regimen: Justyna-Colace, magnesium hydroxide as needed. DVT prophylaxis Sequential compression devices. Lovenox 40 mg sq daily. Discharge Planning Occupational therapy recommends shower bench, 3-1 bedside commode for discharge. PT recommends right AFO. CM working on placement. 12/07/16: CM trying to resolve issue with medicaid on hold. Elisabeth Church Dec 29, 2016 10:31
[2016-12-29] MEDS: ENOXAPARIN SODIUM 40 MG/0.4 ML SYRINGE SQ SCH (13:15)
[2016-12-29 20:00] VITALS: BP 116/78; PULSE 81; RESP 16; TEMP 97; O2SAT 96
[2016-12-29] MEDS: ORPHENADRINE CITRATE 100 MG SUSTAINED RELEASE TAB PO PRN (20:21)
[2016-12-29] MEDS: QUEtiapine FUMARATE 25 MG TAB PO SCH (20:21)
[2016-12-30 08:00] VITALS: BP 124/86; PULSE 88; RESP 20; TEMP 96.8; O2SAT 96
[2016-12-30] MEDS: DOCUSATE SODIUM 50 MG/SENNA 8.6 MG TAB PO SCH ×2 (10:38→20:37)
[2016-12-30] MEDS: FAMOTIDINE 20 MG TAB PO SCH ×2 (10:38→20:37)
[2016-12-30] MEDS: POTASSIUM CHLORIDE 10 MEQ CONTROLLED RELEASE TAB PO SCH (10:38)
[2016-12-30] MEDS: GABAPENTIN 100 MG CAP PO SCH ×3 (10:38→17:42)
--- NOTE | 2016-12-30 10:41 | HHI.PR ---
Subjective Remarks No acute complaints. No change in clinical status. Objective Vitals Vital Signs Date Time Temp Pulse Resp B/P Pulse Ox O2 Delivery O2 Flow Rate FiO2 12/30/16 08:00 96.8 88 20 124/86 96 12/29/16 20:00 97.0 81 16 116/78 96 I/O 12/29/16 12/29/16 12/29/16 12/30/16 12/30/16 12/30/16 07:00 15:00 23:00 07:00 15:00 23:00 Intake Total 500 ml 460 ml 650 ml 250 ml Output Total 4 ml Balance 500 ml 456 ml 650 ml 250 ml Intake Oral 500 ml 460 ml 650 ml 250 ml Output Urine Total 4 ml # Voids 2 5 4 # Bowel Movements 0 1 Objective Remarks GENERAL: Thin patient in no apparent distress. CARDIOVASCULAR: Regular rate and rhythm. RESPIRATORY: RR normal. CTAB. GASTROINTESTINAL: Abdomen soft, nontender. NEUROLOGICAL: Awake and alert. PSYCHIATRIC: Insight and judgment normal. 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 (2) Hemiparesis affecting right side as late effect of cerebrovascular accident (CVA) ICD Code: I69.351 Status: Chronic (3) Shortness of breath ICD Code: R06.02 Status: Resolved (4) Fever ICD Code: R50.9 Status: Resolved (5) Abdominal pain ICD Code: R10.9 Status: Resolved (6) Hypertensive emergency ICD Code: I10 Status: Resolved (7) Metabolic acidosis ICD Code: E87.2 Status: Resolved (8) UTI (urinary tract infection) ICD Code: N39.0 Status: Resolved (9) Vaginal discharge ICD Code: N89.8 Status: Resolved (10) Increased urinary frequency ICD Code: R35.0 Status: Resolved Assessment and Plan 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 Venegas has evaluated the patient. The bleed has been stable on repeat head CT. No surgery needed. Speech therapy indicated soft diet with thin liquids Occupational therapy indicates OT at rehabilitation. Patient will need to continue occupational therapy until discharge Physical therapy indicating PT at rehabilitation. We'll need to continue physical therapy, continue right AFO. Norflex for muscle spasms Abdominal pain: Resolved Leukocytosis resolved CT scan did not indicate any abnormality SOB: Resolved. Chest x-ray without acute abnormality. 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 No signs of central DI Urinalysis was performed which did not indicate any signs of infection Continue Belladonna rectal suppository Hypertension: Controlled Norvasc 10 mg daily Vasotec, clonidine as needed Monitor BP Hypokalemia: Resolved. Patient is on potassium replacement Monitor BMP as needed Alcohol and cocaine abuse dependence patient previously counseled. Status post thiamine Tobacco abuse Counseled on cessation Chronic hepatitis C, chronic Patient with chronic transaminitis continue to follow periodically. 11/05 AST and ALT improved from prior LFTs. Liver ultrasound showed fatty infiltration Anxiety: Controlled Seroquel low-dose initiated on 05/27. Bowel regimen: Justyna-Colace, magnesium hydroxide as needed. DVT prophylaxis Sequential compression devices. Lovenox 40 mg sq daily. Discharge Planning Occupational therapy recommends shower bench, 3-1 bedside commode for discharge. PT recommends right AFO. CM working on placement. 12/07/16: CM trying to resolve issue with medicaid on hold. Elisabeth Church Dec 30, 2016 10:40
[2016-12-30] MEDS: ENOXAPARIN SODIUM 40 MG/0.4 ML SYRINGE SQ SCH (14:11)
[2016-12-30 20:00] VITALS: BP 126/84; PULSE 87; RESP 21; TEMP 98.7; O2SAT 97
[2016-12-30] MEDS: QUEtiapine FUMARATE 25 MG TAB PO SCH (20:37)
[2016-12-31 08:00] VITALS: BP 99/79; PULSE 88; RESP 16; TEMP 97.7; O2SAT 95
[2016-12-31] MEDS: GABAPENTIN 100 MG CAP PO SCH ×3 (09:29→18:27)
[2016-12-31] MEDS: FAMOTIDINE 20 MG TAB PO SCH ×2 (09:29→21:07)
[2016-12-31] MEDS: POTASSIUM CHLORIDE 10 MEQ CONTROLLED RELEASE TAB PO SCH (09:29)
[2016-12-31] MEDS: DOCUSATE SODIUM 50 MG/SENNA 8.6 MG TAB PO SCH ×2 (09:29→21:08)
--- NOTE | 2016-12-31 12:13 | HHI.PR ---
Subjective Remarks No acute complaints. No change in clinical status. Objective Vitals Vital Signs Date Time Temp Pulse Resp B/P Pulse Ox O2 Delivery O2 Flow Rate FiO2 12/31/16 08:00 97.7 88 16 99/79 95 12/30/16 20:00 98.7 87 21 126/84 97 I/O 12/30/16 12/30/16 12/30/16 12/31/16 12/31/16 12/31/16 07:00 15:00 23:00 07:00 15:00 23:00 Intake Total 250 ml 900 ml 480 ml 480 ml Balance 250 ml 900 ml 480 ml 480 ml Intake Oral 250 ml 900 ml 480 ml 480 ml # Voids 4 5 3 3 # Bowel Movements 0 1 0 Objective Remarks GENERAL: Thin patient in no apparent distress. CARDIOVASCULAR: Regular rate and rhythm. RESPIRATORY: RR normal. CTAB. GASTROINTESTINAL: Abdomen soft, nontender, non-distended. NEUROLOGICAL: Awake and alert. PSYCHIATRIC: Insight and judgment normal. 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 (2) Hemiparesis affecting right side as late effect of cerebrovascular accident (CVA) ICD Code: I69.351 Status: Chronic (3) Shortness of breath ICD Code: R06.02 Status: Resolved (4) Fever ICD Code: R50.9 Status: Resolved (5) Abdominal pain ICD Code: R10.9 Status: Resolved (6) Hypertensive emergency ICD Code: I10 Status: Resolved (7) Metabolic acidosis ICD Code: E87.2 Status: Resolved (8) UTI (urinary tract infection) ICD Code: N39.0 Status: Resolved (9) Vaginal discharge ICD Code: N89.8 Status: Resolved (10) Increased urinary frequency ICD Code: R35.0 Status: Resolved Assessment and Plan 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 Venegas has evaluated the patient. The bleed has been stable on repeat head CT. No surgery needed. Speech therapy indicated soft diet with thin liquids Occupational therapy indicates OT at rehabilitation. Patient will need to continue occupational therapy until discharge Physical therapy indicating PT at rehabilitation. We'll need to continue physical therapy, continue right AFO. Norflex for muscle spasms Abdominal pain: Resolved Leukocytosis resolved CT scan did not indicate any abnormality SOB: Resolved. Chest x-ray without acute abnormality. 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 No signs of central DI Urinalysis was performed which did not indicate any signs of infection Continue Belladonna rectal suppository Hypertension: Hypotensive today. Amlodipine was held. Norvasc 10 mg daily Vasotec, clonidine as needed Monitor BP Hypokalemia: Resolved. Patient is on potassium replacement Monitor BMP as needed Alcohol and cocaine abuse dependence patient previously counseled. Status post thiamine Tobacco abuse Counseled on cessation Chronic hepatitis C, chronic Patient with chronic transaminitis continue to follow periodically. 11/05 AST and ALT improved from prior LFTs. Liver ultrasound showed fatty infiltration Anxiety: Controlled Seroquel low-dose initiated on 05/27. Bowel regimen: Justyna-Colace, magnesium hydroxide as needed. DVT prophylaxis Sequential compression devices. Lovenox 40 mg sq daily. Discharge Planning Occupational therapy recommends shower bench, 3-1 bedside commode for discharge. PT recommends right AFO. CM working on placement. 12/07/16: CM trying to resolve issue with medicaid on hold. Elisabeth Church Dec 31, 2016 12:13
[2016-12-31] MEDS: ENOXAPARIN SODIUM 40 MG/0.4 ML SYRINGE SQ SCH (14:22)
[2016-12-31 20:00] VITALS: BP 137/80; PULSE 90; RESP 17; TEMP 98.1; O2SAT 96
[2016-12-31] MEDS: QUEtiapine FUMARATE 25 MG TAB PO SCH (21:08)
[2017-01-01 08:00] VITALS: BP 147/93; PULSE 82; RESP 19; TEMP 97.6; O2SAT 94
[2017-01-01] MEDS: GABAPENTIN 100 MG CAP PO SCH ×3 (08:29→18:25)
[2017-01-01] MEDS: POTASSIUM CHLORIDE 10 MEQ CONTROLLED RELEASE TAB PO SCH (08:29)
[2017-01-01] MEDS: DOCUSATE SODIUM 50 MG/SENNA 8.6 MG TAB PO SCH ×2 (08:29→20:38)
[2017-01-01] MEDS: FAMOTIDINE 20 MG TAB PO SCH ×2 (08:29→20:38)
--- NOTE | 2017-01-01 11:37 | HHI.PR ---
Subjective Remarks No acute complaints. No change in clinical status. Objective Vitals Vital Signs Date Time Temp Pulse Resp B/P Pulse Ox O2 Delivery O2 Flow Rate FiO2 01/01/17 08:00 97.6 82 19 147/93 94 12/31/16 20:00 98.1 90 17 137/80 96 I/O 12/31/16 12/31/16 12/31/16 01/01/17 01/01/17 01/01/17 07:00 15:00 23:00 07:00 15:00 23:00 Intake Total 960 ml 400 ml 240 ml 480 ml Balance 960 ml 400 ml 240 ml 480 ml Intake Oral 960 ml 400 ml 240 ml 480 ml # Voids 4 3 1 1 # Bowel Movements 0 1 0 0 Objective Remarks GENERAL: Thin patient in no apparent distress. CARDIOVASCULAR: Regular rate and rhythm. RESPIRATORY: RR normal. CTAB. GASTROINTESTINAL: Abdomen soft, nontender, non-distended. NEUROLOGICAL: Awake and alert. PSYCHIATRIC: Insight and judgment normal. 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 (2) Hemiparesis affecting right side as late effect of cerebrovascular accident (CVA) ICD Code: I69.351 Status: Chronic (3) Shortness of breath ICD Code: R06.02 Status: Resolved (4) Fever ICD Code: R50.9 Status: Resolved (5) Abdominal pain ICD Code: R10.9 Status: Resolved (6) Hypertensive emergency ICD Code: I10 Status: Resolved (7) Metabolic acidosis ICD Code: E87.2 Status: Resolved (8) UTI (urinary tract infection) ICD Code: N39.0 Status: Resolved (9) Vaginal discharge ICD Code: N89.8 Status: Resolved (10) Increased urinary frequency ICD Code: R35.0 Status: Resolved Assessment and Plan Left basal ganglia bleed with 4mm MLS with dense Right hemiparesis, stable secondary to cocaine and uncontrolled hypertension Neurosurgery, Dr. Venegas has evaluated the patient. The bleed has been stable on repeat head CT. No surgery needed. Speech therapy indicated soft diet with thin liquids Occupational therapy indicates OT at rehabilitation. Patient will need to continue occupational therapy until discharge Physical therapy indicating PT at rehabilitation. We'll need to continue physical therapy, continue right AFO. Norflex for muscle spasms Abdominal pain: Resolved Leukocytosis resolved CT scan did not indicate any abnormality SOB: Resolved. Chest x-ray without acute abnormality. 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 No signs of central DI Urinalysis was performed which did not indicate any signs of infection Continue Belladonna rectal suppository Hypertension: Norvasc 10 mg daily Vasotec, clonidine as needed Hypertensive this morning. Monitor BP and adjust medication as needed. Hypokalemia: Resolved. Patient is on potassium replacement Monitor BMP as needed Alcohol and cocaine abuse dependence patient previously counseled. Status post thiamine Tobacco abuse Counseled on cessation Chronic hepatitis C, chronic Patient with chronic transaminitis continue to follow periodically. 11/05 AST and ALT improved from prior LFTs. Liver ultrasound showed fatty infiltration Anxiety: Controlled Seroquel low-dose initiated on 05/27. Bowel regimen: Justyna-Colace, magnesium hydroxide as needed. DVT prophylaxis Sequential compression devices. Lovenox 40 mg sq daily. Discharge Planning Occupational therapy recommends shower bench, 3-1 bedside commode for discharge. PT recommends right AFO. CM working on placement. 12/07/16: CM trying to resolve issue with medicaid on hold. Elisabeth Church Jan 01, 2017 11:37
[2017-01-01] MEDS: ENOXAPARIN SODIUM 40 MG/0.4 ML SYRINGE SQ SCH (14:50)
[2017-01-01] MEDS: QUEtiapine FUMARATE 25 MG TAB PO SCH (20:38)
[2017-01-01 20:44] VITALS: BP 121/83; PULSE 90; RESP 18; TEMP 97.5; O2SAT 97
[2017-01-02 08:00] VITALS: BP 143/88; PULSE 80; RESP 17; TEMP 97.4; O2SAT 94
[2017-01-02] MEDS: GABAPENTIN 100 MG CAP PO SCH ×3 (08:27→18:11)
[2017-01-02] MEDS: POTASSIUM CHLORIDE 10 MEQ CONTROLLED RELEASE TAB PO SCH (08:27)
[2017-01-02] MEDS: FAMOTIDINE 20 MG TAB PO SCH ×2 (08:27→20:42)
[2017-01-02] MEDS: DOCUSATE SODIUM 50 MG/SENNA 8.6 MG TAB PO SCH ×2 (08:27→20:42)
[2017-01-02] MEDS: ENOXAPARIN SODIUM 40 MG/0.4 ML SYRINGE SQ SCH (15:36)
--- NOTE | 2017-01-02 17:11 | HHI.PR ---
Subjective Remarks Patient seen today in follow-up for intracranial hemorrhage and hypertension. No events Objective Vitals Vital Signs Date Time Temp Pulse Resp B/P Pulse Ox O2 Delivery O2 Flow Rate FiO2 01/02/17 08:00 97.4 80 17 143/88 94 01/01/17 20:44 97.5 90 18 121/83 97 I/O 01/01/17 01/01/17 01/01/17 01/02/17 01/02/17 01/02/17 07:00 15:00 23:00 07:00 15:00 23:00 Intake Total 480 ml 600 ml Balance 480 ml 600 ml Intake Oral 480 ml 600 ml # Voids 1 4 3 # Bowel Movements 0 2 0 Objective Remarks GENERAL: This is a well-nourished, well-developed patient, in no apparent distress. CARDIOVASCULAR: Regular rate and rhythm without murmurs, gallops, or rubs. RESPIRATORY: Clear to auscultation. Breath sounds equal bilaterally. No wheezes , rales, or rhonchi. GASTROINTESTINAL: Abdomen soft, non-tender, nondistended. Normal active bowel sounds MUSCULOSKELETAL: Extremities without clubbing, cyanosis, or edema. NEURO: Alert & Oriented x4 to person, moves all right extremities with assistance of the other extremities (right hemiparesis), some difficulty with speech but able to make needs known Procedures None A/P Assessment and Plan Hospital day #[id number]. Continue with medical management of Left basal ganglia bleed with 4mm MLS with dense Right hemiparesis, stable Discharge Planning Case management aware of Barriers to discharge Jessica Garcia MD Jan 02, 2017 17:11
[2017-01-02] MEDS: QUEtiapine FUMARATE 25 MG TAB PO SCH (20:42)
[2017-01-02 21:50] VITALS: BP 115/92; PULSE 89; RESP 20; TEMP 98.8; O2SAT 96
[2017-01-03 08:00] VITALS: BP 135/82; PULSE 84; RESP 16; TEMP 96.8; O2SAT 95
[2017-01-03] MEDS: FAMOTIDINE 20 MG TAB PO SCH ×2 (09:32→20:55)
[2017-01-03] MEDS: GABAPENTIN 100 MG CAP PO SCH ×3 (09:32→17:34)
[2017-01-03] MEDS: POTASSIUM CHLORIDE 10 MEQ CONTROLLED RELEASE TAB PO SCH (09:33)
[2017-01-03] MEDS: DOCUSATE SODIUM 50 MG/SENNA 8.6 MG TAB PO SCH ×2 (09:33→20:55)
--- NOTE | 2017-01-03 09:34 | HHI.PR ---
Subjective Remarks No acute complaints. No change in clinical status. Objective Vitals Vital Signs Date Time Temp Pulse Resp B/P Pulse Ox O2 Delivery O2 Flow Rate FiO2 01/03/17 08:00 96.8 84 16 135/82 95 01/02/17 21:50 98.8 89 20 115/92 96 I/O 01/02/17 01/02/17 01/02/17 01/03/17 01/03/17 01/03/17 07:00 15:00 23:00 07:00 15:00 23:00 Intake Total 720 ml Balance 720 ml Intake Oral 720 ml # Voids 3 4 3 # Bowel Movements 0 1 0 Objective Remarks GENERAL: Thin patient in no apparent distress. CARDIOVASCULAR: Regular rate and rhythm. RESPIRATORY: RR normal. CTAB. GASTROINTESTINAL: Abdomen soft, nontender, non-distended. NEUROLOGICAL: Awake and alert. PSYCHIATRIC: Insight and judgment normal. 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 (2) Hemiparesis affecting right side as late effect of cerebrovascular accident (CVA) ICD Code: I69.351 Status: Chronic (3) Shortness of breath ICD Code: R06.02 Status: Resolved (4) Fever ICD Code: R50.9 Status: Resolved (5) Abdominal pain ICD Code: R10.9 Status: Resolved (6) Hypertensive emergency ICD Code: I10 Status: Resolved (7) Metabolic acidosis ICD Code: E87.2 Status: Resolved (8) UTI (urinary tract infection) ICD Code: N39.0 Status: Resolved (9) Vaginal discharge ICD Code: N89.8 Status: Resolved (10) Increased urinary frequency ICD Code: R35.0 Status: Resolved Assessment and Plan Left basal ganglia bleed with 4mm MLS with dense Right hemiparesis, stable secondary to cocaine and uncontrolled hypertension Neurosurgery, Dr. Venegas has evaluated the patient. The bleed has been stable on repeat head CT. No surgery needed. Speech therapy indicated soft diet with thin liquids Occupational therapy indicates OT at rehabilitation. Patient will need to continue occupational therapy until discharge Physical therapy indicating PT at rehabilitation. We'll need to continue physical therapy, continue right AFO. Norflex for muscle spasms Abdominal pain: Resolved Leukocytosis resolved CT scan did not indicate any abnormality SOB: Resolved. Chest x-ray without acute abnormality. 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 No signs of central DI Urinalysis was performed which did not indicate any signs of infection Continue Belladonna rectal suppository Hypertension: Norvasc 10 mg daily Vasotec, clonidine as needed Hypokalemia: Resolved. Patient is on potassium replacement Monitor BMP as needed Alcohol and cocaine abuse dependence patient previously counseled. Status post thiamine Tobacco abuse Counseled on cessation Chronic hepatitis C, chronic Patient with chronic transaminitis continue to follow periodically. 11/05 AST and ALT improved from prior LFTs. Liver ultrasound showed fatty infiltration Anxiety: Controlled Seroquel low-dose initiated on 05/27. Bowel regimen: Justyna-Colace, magnesium hydroxide as needed. DVT prophylaxis Sequential compression devices. Lovenox 40 mg sq daily. Discharge Planning Occupational therapy recommends shower bench, 3-1 bedside commode for discharge. PT recommends right AFO. CM working on placement. 12/07/16: CM trying to resolve issue with medicaid on hold. Elisabeth Church Jan 03, 2017 09:34
[2017-01-03] MEDS: ENOXAPARIN SODIUM 40 MG/0.4 ML SYRINGE SQ SCH (15:42)
[2017-01-03 20:00] VITALS: BP 137/91; PULSE 98; RESP 20; TEMP 97.7; O2SAT 96
[2017-01-03] MEDS: ORPHENADRINE CITRATE 100 MG SUSTAINED RELEASE TAB PO PRN (20:54)
[2017-01-03] MEDS: QUEtiapine FUMARATE 25 MG TAB PO SCH (20:55)
[2017-01-04 08:00] VITALS: BP 138/91; PULSE 86; RESP 18; TEMP 97; O2SAT 95
[2017-01-04] MEDS: GABAPENTIN 100 MG CAP PO SCH ×3 (09:54→17:37)
[2017-01-04] MEDS: FAMOTIDINE 20 MG TAB PO SCH ×2 (09:54→22:01)
[2017-01-04] MEDS: DOCUSATE SODIUM 50 MG/SENNA 8.6 MG TAB PO SCH ×2 (09:55→22:01)
[2017-01-04] MEDS: POTASSIUM CHLORIDE 10 MEQ CONTROLLED RELEASE TAB PO SCH (09:55)
--- NOTE | 2017-01-04 14:02 | HHI.PR ---
Subjective Remarks Patient seen and examined today. Patient denies any new complaints. No change in clinical status. Objective Vitals Vital Signs Date Time Temp Pulse Resp B/P Pulse Ox O2 Delivery O2 Flow Rate FiO2 01/04/17 08:00 97.0 86 18 138/91 95 01/03/17 20:00 97.7 98 20 137/91 96 I/O 01/03/17 01/03/17 01/03/17 01/04/17 01/04/17 01/04/17 07:00 15:00 23:00 07:00 15:00 23:00 Intake Total 240 ml 480 ml 960 ml Balance 240 ml 480 ml 960 ml Intake Oral 240 ml 480 ml 960 ml # Voids 3 3 2 4 # Bowel Movements 0 1 0 0 Objective Remarks GENERAL: Well-developed, well-nourished, in no acute distress. alert and orientated HEENT: Head is normocephalic without any lesions or masses noted right facial droop. NECK: Trachea midline no deviation. CARDIAC: Regular rhythm, regular rate. S1/S2 are heard. No murmurs gallops or rubs. LUNGS: Clear to auscultation bilaterally. No wheeze, rhonchi or rales. No use of accessory muscles on inspiration or expiration. ABDOMEN: Soft, nontender. Nondistended. Bowel sounds heard in all 4 quadrants. No organomegaly or masses. Negative rebound, negative guarding EXTREMITIES: No edema, pulses are equal bilaterally. No cyanosis or clubbing NEUROLOGY: Mood and affect appear appropriate. Dense right hemiparesis which appears to be improving in the lower extremity. Patient is able to move her right hand second third and fourth digit. 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 Venegas has evaluated the patient. The bleed has been stable on repeat head CT. No surgery needed. Speech therapy has been following the patient continue on soft diet with thin liquids Occupational therapy indicates OT at rehabilitation. Patient will need to continue occupational therapy until discharge Physical therapy indicating PT at rehabilitation. We'll need to continue physical therapy, continue right AFO, Norflex for muscle spasm --trapeze assembly for bed to facilitate functioning --Consulted OT for wheelchair recommendations. Supplied recommendations to case management to provide wheelchair. reconsulted case management to supply wheelchair Patient will likely be able to use a wheelchair and be discharged prior to ambulating out of the hospital or funding available for rehabilitation Right arm pain, controlled Continue Neurontin for right arm neuropathic pain Dysuria, urinary frequency, resolved BNP was performed, sodium level was normal. No signs of central DI Urinalysis was performed which did not indicate any signs of infection Hypokalemia, controlled Patient continued on potassium supplementation Repeat lab work did indicate potassium level 3.8. Continue monitor as needed Hypertension, stable Norvasc 10 mg daily Vasotec, clonidine as needed Alcohol and cocaine abuse dependence patient previously counseled. Status post thiamine Tobacco abuse Counseled on cessation Chronic hepatitis C, chronic Patient with chronic transaminitis continue to follow monthly. liver ultrasound showed fatty infiltration Anxiety. Controlled Seroquel low-dose initiated on 05/27. Bowel regimen Justyna-Colace as needed DVT prophylaxis Sequential compression devices. Lovenox 40 mg daily. No change in present treatment plan Discharge Planning Discharge planning per case management. Consult case management for wheelchair. Patient will likely be able to use wheelchair and be discharged prior to her being able to be discharged without the wheelchair and home. Jaycob Rebolledo Jan 04, 2017 14:02
[2017-01-04] MEDS: ENOXAPARIN SODIUM 40 MG/0.4 ML SYRINGE SQ SCH (14:25)
[2017-01-04 20:00] VITALS: BP 128/85; PULSE 87; RESP 21; TEMP 96.6; O2SAT 96
[2017-01-04] MEDS: ORPHENADRINE CITRATE 100 MG SUSTAINED RELEASE TAB PO PRN (22:00)
[2017-01-04] MEDS: QUEtiapine FUMARATE 25 MG TAB PO SCH (22:01)
[2017-01-05 08:00] VITALS: BP 124/78; PULSE 86; RESP 20; TEMP 96.7; O2SAT 97
[2017-01-05] MEDS: GABAPENTIN 100 MG CAP PO SCH ×3 (08:52→17:04)
[2017-01-05] MEDS: POTASSIUM CHLORIDE 10 MEQ CONTROLLED RELEASE TAB PO SCH (08:52)
[2017-01-05] MEDS: FAMOTIDINE 20 MG TAB PO SCH ×2 (08:52→21:47)
[2017-01-05] MEDS: DOCUSATE SODIUM 50 MG/SENNA 8.6 MG TAB PO SCH ×2 (08:52→21:47)
--- NOTE | 2017-01-05 09:19 | HHI.PR ---
Subjective Remarks Patient seen and examined today. Patient has any new complaints. No change in clinical status. Objective Vitals Vital Signs Date Time Temp Pulse Resp B/P Pulse Ox O2 Delivery O2 Flow Rate FiO2 01/04/17 20:00 96.6 87 21 128/85 96 I/O 01/04/17 01/04/17 01/04/17 01/05/17 01/05/17 01/05/17 07:00 15:00 23:00 07:00 15:00 23:00 Intake Total 960 ml 680 ml 700 ml 120 ml Balance 960 ml 680 ml 700 ml 120 ml Intake Oral 960 ml 680 ml 700 ml 120 ml # Voids 4 3 1 2 # Bowel Movements 0 1 0 0 Objective Remarks GENERAL: Well-developed, well-nourished, in no acute distress. alert and orientated HEENT: Head is normocephalic without any lesions or masses noted right facial droop. NECK: Trachea midline no deviation. CARDIAC: Regular rhythm, regular rate. S1/S2 are heard. No murmurs gallops or rubs. LUNGS: Clear to auscultation bilaterally. No wheeze, rhonchi or rales. No use of accessory muscles on inspiration or expiration. ABDOMEN: Soft, nontender. Nondistended. Bowel sounds heard in all 4 quadrants. No organomegaly or masses. Negative rebound, negative guarding EXTREMITIES: No edema, pulses are equal bilaterally. No cyanosis or clubbing NEUROLOGY: Mood and affect appear appropriate. Dense right hemiparesis which appears to be improving in the lower extremity. Patient is able to move her right hand second third and fourth digit. 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 Venegas has evaluated the patient. The bleed has been stable on repeat head CT. No surgery needed. Speech therapy has been following the patient continue on soft diet with thin liquids Occupational therapy indicates OT at rehabilitation. Patient will need to continue occupational therapy until discharge Physical therapy indicating PT at rehabilitation. We'll need to continue physical therapy, continue right AFO, Norflex for muscle spasm --trapeze assembly for bed to facilitate functioning --Consulted OT for wheelchair recommendations. Supplied recommendations to case management to provide wheelchair. reconsulted case management to supply wheelchair Patient will likely be able to use a wheelchair and be discharged prior to ambulating out of the hospital or funding available for rehabilitation Right arm pain, controlled Continue Neurontin for right arm neuropathic pain Dysuria, urinary frequency, resolved BNP was performed, sodium level was normal. No signs of central DI Urinalysis was performed which did not indicate any signs of infection Hypokalemia, controlled Patient continued on potassium supplementation Repeat lab work did indicate potassium level 3.8. Continue monitor as needed Hypertension, stable Norvasc 10 mg daily Vasotec, clonidine as needed Alcohol and cocaine abuse dependence patient previously counseled. Status post thiamine Tobacco abuse Counseled on cessation Chronic hepatitis C, chronic Patient with chronic transaminitis continue to follow monthly. liver ultrasound showed fatty infiltration Anxiety. Controlled Seroquel low-dose initiated on 05/27. Bowel regimen Justyna-Colace as needed DVT prophylaxis Sequential compression devices. Lovenox 40 mg daily. No change in present treatment plan Discharge Planning Discharge planning per case management. Consult case management for wheelchair. Patient will likely be able to use wheelchair and be discharged prior to her being able to be discharged without the wheelchair and home. Jaycob Rebolledo Jan 05, 2017 09:19
[2017-01-05] MEDS: ENOXAPARIN SODIUM 40 MG/0.4 ML SYRINGE SQ SCH (15:00)
[2017-01-05 20:00] VITALS: BP 135/86; PULSE 90; RESP 20; TEMP 97.6; O2SAT 97
[2017-01-05] MEDS: ORPHENADRINE CITRATE 100 MG SUSTAINED RELEASE TAB PO PRN (21:47)
[2017-01-05] MEDS: QUEtiapine FUMARATE 25 MG TAB PO SCH (21:47)
[2017-01-06 08:00] VITALS: BP 138/93; PULSE 84; RESP 21; TEMP 96.1; O2SAT 96
[2017-01-06] MEDS: DOCUSATE SODIUM 50 MG/SENNA 8.6 MG TAB PO SCH ×2 (09:00→19:55)
[2017-01-06] MEDS: FAMOTIDINE 20 MG TAB PO SCH ×2 (09:18→19:55)
[2017-01-06] MEDS: GABAPENTIN 100 MG CAP PO SCH ×3 (09:19→17:56)
[2017-01-06] MEDS: POTASSIUM CHLORIDE 10 MEQ CONTROLLED RELEASE TAB PO SCH (09:19)
--- NOTE | 2017-01-06 14:13 | HHI.PR ---
Subjective Remarks Patient seen and examined today. Patient denies any new complaints. No change in clinical status. Objective Vitals Vital Signs Date Time Temp Pulse Resp B/P Pulse Ox O2 Delivery O2 Flow Rate FiO2 01/06/17 08:00 96.1 84 21 138/93 96 01/05/17 20:00 97.6 90 20 135/86 97 I/O 01/05/17 01/05/17 01/05/17 01/06/17 01/06/17 01/06/17 07:00 15:00 23:00 07:00 15:00 23:00 Intake Total 120 ml 850 ml 480 ml 480 ml Balance 120 ml 850 ml 480 ml 480 ml Intake Oral 120 ml 850 ml 480 ml 480 ml IV Total 0 ml # Voids 2 4 1 3 # Bowel Movements 0 1 0 0 Objective Remarks GENERAL: Well-developed, well-nourished, in no acute distress. alert and orientated HEENT: Head is normocephalic without any lesions or masses noted right facial droop. NECK: Trachea midline no deviation. CARDIAC: Regular rhythm, regular rate. S1/S2 are heard. No murmurs gallops or rubs. LUNGS: Clear to auscultation bilaterally. No wheeze, rhonchi or rales. No use of accessory muscles on inspiration or expiration. ABDOMEN: Soft, nontender. Nondistended. Bowel sounds heard in all 4 quadrants. No organomegaly or masses. Negative rebound, negative guarding EXTREMITIES: No edema, pulses are equal bilaterally. No cyanosis or clubbing NEUROLOGY: Mood and affect appear appropriate. Dense right hemiparesis which appears to be improving in the lower extremity. Patient is able to move her right hand second third and fourth digit. 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 Venegas has evaluated the patient. The bleed has been stable on repeat head CT. No surgery needed. Speech therapy has been following the patient continue on soft diet with thin liquids Occupational therapy indicates OT at rehabilitation. Patient will need to continue occupational therapy until discharge Physical therapy indicating PT at rehabilitation. We'll need to continue physical therapy, continue right AFO, Norflex for muscle spasm --trapeze assembly for bed to facilitate functioning --Consulted OT for wheelchair recommendations. Supplied recommendations to case management to provide wheelchair. reconsulted case management to supply wheelchair Patient will likely be able to use a wheelchair and be discharged prior to ambulating out of the hospital or funding available for rehabilitation Right arm pain, controlled Continue Neurontin for right arm neuropathic pain Dysuria, urinary frequency, resolved BNP was performed, sodium level was normal. No signs of central DI Urinalysis was performed which did not indicate any signs of infection Hypokalemia, controlled Patient continued on potassium supplementation Repeat lab work did indicate potassium level 3.8. Continue monitor as needed Hypertension, stable Norvasc 10 mg daily Vasotec, clonidine as needed Alcohol and cocaine abuse dependence patient previously counseled. Status post thiamine Tobacco abuse Counseled on cessation Chronic hepatitis C, chronic Patient with chronic transaminitis continue to follow monthly. liver ultrasound showed fatty infiltration Anxiety. Controlled Seroquel low-dose initiated on 05/27. Bowel regimen Justyna-Colace as needed DVT prophylaxis Sequential compression devices. Lovenox 40 mg daily. Records reviewed, No change in present treatment plan Discharge Planning Discharge planning per case management. Consult case management for wheelchair. Patient will likely be able to use wheelchair and be discharged prior to her being able to be discharged without the wheelchair and home. Jaycob Rebolledo Jan 06, 2017 14:13
[2017-01-06] MEDS: ENOXAPARIN SODIUM 40 MG/0.4 ML SYRINGE SQ SCH (14:49)
[2017-01-06] MEDS: QUEtiapine FUMARATE 25 MG TAB PO SCH (19:56)
[2017-01-06 20:00] VITALS: BP 134/89; PULSE 82; RESP 18; TEMP 98.7; O2SAT 97
[2017-01-07 08:00] VITALS: BP 130/80; PULSE 80; RESP 18; TEMP 97.8; O2SAT 97
[2017-01-07] MEDS: POTASSIUM CHLORIDE 10 MEQ CONTROLLED RELEASE TAB PO SCH (09:23)
[2017-01-07] MEDS: GABAPENTIN 100 MG CAP PO SCH ×3 (09:23→18:36)
[2017-01-07] MEDS: DOCUSATE SODIUM 50 MG/SENNA 8.6 MG TAB PO SCH ×2 (09:23→20:40)
[2017-01-07] MEDS: FAMOTIDINE 20 MG TAB PO SCH ×2 (09:23→20:40)
--- NOTE | 2017-01-07 13:59 | HHI.PR ---
Subjective Remarks Patient seen and examined today. Patient has any new complaints. No change in clinical status. Objective Vitals Vital Signs Date Time Temp Pulse Resp B/P Pulse Ox O2 Delivery O2 Flow Rate FiO2 01/07/17 08:00 97.8 80 18 130/80 97 01/06/17 20:00 98.7 82 18 134/89 97 I/O 01/06/17 01/06/17 01/06/17 01/07/17 01/07/17 01/07/17 07:00 15:00 23:00 07:00 15:00 23:00 Intake Total 480 ml 1000 ml 800 ml 600 ml Balance 480 ml 1000 ml 800 ml 600 ml Intake Oral 480 ml 1000 ml 800 ml 600 ml IV Total 0 ml # Voids 3 5 2 3 # Bowel Movements 0 1 0 0 Objective Remarks GENERAL: Well-developed, well-nourished, in no acute distress. alert and orientated HEENT: Head is normocephalic without any lesions or masses noted right facial droop. NECK: Trachea midline no deviation. CARDIAC: Regular rhythm, regular rate. S1/S2 are heard. No murmurs gallops or rubs. LUNGS: Clear to auscultation bilaterally. No wheeze, rhonchi or rales. No use of accessory muscles on inspiration or expiration. ABDOMEN: Soft, nontender. Nondistended. Bowel sounds heard in all 4 quadrants. No organomegaly or masses. Negative rebound, negative guarding EXTREMITIES: No edema, pulses are equal bilaterally. No cyanosis or clubbing NEUROLOGY: Mood and affect appear appropriate. Dense right hemiparesis which appears to be improving in the lower extremity. Patient is able to move her right hand second third and fourth digit. 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 Venegas has evaluated the patient. The bleed has been stable on repeat head CT. No surgery needed. Speech therapy has been following the patient continue on soft diet with thin liquids Occupational therapy indicates OT at rehabilitation. Patient will need to continue occupational therapy until discharge Physical therapy indicating PT at rehabilitation. We'll need to continue physical therapy, continue right AFO, Norflex for muscle spasm --trapeze assembly for bed to facilitate functioning --Consulted OT for wheelchair recommendations. Supplied recommendations to case management to provide wheelchair. reconsulted case management to supply wheelchair Patient will likely be able to use a wheelchair and be discharged prior to ambulating out of the hospital or funding available for rehabilitation Right arm pain, controlled Continue Neurontin for right arm neuropathic pain Dysuria, urinary frequency, resolved BNP was performed, sodium level was normal. No signs of central DI Urinalysis was performed which did not indicate any signs of infection Hypokalemia, controlled Patient continued on potassium supplementation Repeat lab work did indicate potassium level 3.8. Continue monitor as needed Hypertension, stable Norvasc 10 mg daily Vasotec, clonidine as needed Alcohol and cocaine abuse dependence patient previously counseled. Status post thiamine Tobacco abuse Counseled on cessation Chronic hepatitis C, chronic Patient with chronic transaminitis continue to follow monthly. liver ultrasound showed fatty infiltration Anxiety. Controlled Seroquel low-dose initiated on 05/27. Bowel regimen Justyna-Colace as needed DVT prophylaxis Sequential compression devices. Lovenox 40 mg daily. Records reviewed, No change in present treatment plan Discharge Planning Discharge planning per case management. Consult case management for wheelchair. Patient will likely be able to use wheelchair and be discharged prior to her being able to be discharged without the wheelchair and home. Jaycob Rebolledo Jan 07, 2017 13:59
[2017-01-07] MEDS: ENOXAPARIN SODIUM 40 MG/0.4 ML SYRINGE SQ SCH (15:30)
[2017-01-07 20:00] VITALS: BP 144/90; PULSE 88; RESP 22; TEMP 97.5; O2SAT 97
[2017-01-07] MEDS: QUEtiapine FUMARATE 25 MG TAB PO SCH (20:41)
[2017-01-08 08:00] VITALS: BP 122/76; PULSE 76; RESP 16; TEMP 97.1; O2SAT 98
[2017-01-08] MEDS: POTASSIUM CHLORIDE 10 MEQ CONTROLLED RELEASE TAB PO SCH (08:07)
[2017-01-08] MEDS: DOCUSATE SODIUM 50 MG/SENNA 8.6 MG TAB PO SCH ×2 (08:07→20:54)
[2017-01-08] MEDS: ENOXAPARIN SODIUM 40 MG/0.4 ML SYRINGE SQ SCH (08:07)
[2017-01-08] MEDS: FAMOTIDINE 20 MG TAB PO SCH ×2 (08:07→20:54)
[2017-01-08] MEDS: GABAPENTIN 100 MG CAP PO SCH ×3 (08:07→17:09)
--- NOTE | 2017-01-08 13:38 | HHI.PR ---
Subjective Remarks Patient seen and examined today. Patient denies any new complaints. No change clinical status. Objective Vitals Vital Signs Date Time Temp Pulse Resp B/P Pulse Ox O2 Delivery O2 Flow Rate FiO2 01/08/17 08:00 97.1 76 16 122/76 98 01/07/17 20:00 97.5 88 22 144/90 97 I/O 01/07/17 01/07/17 01/07/17 01/08/17 01/08/17 01/08/17 07:00 15:00 23:00 07:00 15:00 23:00 Intake Total 600 ml 1240 ml 620 ml Balance 600 ml 1240 ml 620 ml Intake Oral 600 ml 1240 ml 620 ml # Voids 3 6 3 # Bowel Movements 0 0 1 Objective Remarks GENERAL: Well-developed, well-nourished, in no acute distress. alert and orientated HEENT: Head is normocephalic without any lesions or masses noted right facial droop. NECK: Trachea midline no deviation. CARDIAC: Regular rhythm, regular rate. S1/S2 are heard. No murmurs gallops or rubs. LUNGS: Clear to auscultation bilaterally. No wheeze, rhonchi or rales. No use of accessory muscles on inspiration or expiration. ABDOMEN: Soft, nontender. Nondistended. Bowel sounds heard in all 4 quadrants. No organomegaly or masses. Negative rebound, negative guarding EXTREMITIES: No edema, pulses are equal bilaterally. No cyanosis or clubbing NEUROLOGY: Mood and affect appear appropriate. Dense right hemiparesis which appears to be improving in the lower extremity. Patient is able to move her right hand second third and fourth digit. 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 Venegas has evaluated the patient. The bleed has been stable on repeat head CT. No surgery needed. Speech therapy has been following the patient continue on soft diet with thin liquids Occupational therapy indicates OT at rehabilitation. Patient will need to continue occupational therapy until discharge Physical therapy indicating PT at rehabilitation. We'll need to continue physical therapy, continue right AFO, Norflex for muscle spasm --trapeze assembly for bed to facilitate functioning --Consulted OT for wheelchair recommendations. Supplied recommendations to case management to provide wheelchair. reconsulted case management to supply wheelchair Patient will likely be able to use a wheelchair and be discharged prior to ambulating out of the hospital or funding available for rehabilitation Right arm pain, controlled Continue Neurontin for right arm neuropathic pain Dysuria, urinary frequency, resolved BNP was performed, sodium level was normal. No signs of central DI Urinalysis was performed which did not indicate any signs of infection Hypokalemia, controlled Patient continued on potassium supplementation Repeat lab work did indicate potassium level 3.8. Continue monitor as needed Hypertension, stable Norvasc 10 mg daily Vasotec, clonidine as needed Alcohol and cocaine abuse dependence patient previously counseled. Status post thiamine Tobacco abuse Counseled on cessation Chronic hepatitis C, chronic Patient with chronic transaminitis continue to follow monthly. liver ultrasound showed fatty infiltration Anxiety. Controlled Seroquel low-dose initiated on 05/27. Bowel regimen Justyna-Colace as needed DVT prophylaxis Sequential compression devices. Lovenox 40 mg daily. Records reviewed, No change in present treatment plan Discharge Planning Discharge planning per case management. Consult case management for wheelchair. Patient will likely be able to use wheelchair and be discharged prior to her being able to be discharged without the wheelchair and home. Jaycob Rebolledo Jan 08, 2017 13:38
[2017-01-08 20:00] VITALS: BP 166/90; PULSE 96; RESP 20; TEMP 98.4; O2SAT 96
[2017-01-08] MEDS: QUEtiapine FUMARATE 25 MG TAB PO SCH (20:54)
[2017-01-09 08:00] VITALS: BP 128/87; PULSE 89; RESP 18; TEMP 97.7; O2SAT 95
[2017-01-09] MEDS: POTASSIUM CHLORIDE 10 MEQ CONTROLLED RELEASE TAB PO SCH (09:14)
[2017-01-09] MEDS: GABAPENTIN 100 MG CAP PO SCH ×3 (09:14→16:48)
[2017-01-09] MEDS: FAMOTIDINE 20 MG TAB PO SCH ×2 (09:14→20:50)
[2017-01-09] MEDS: DOCUSATE SODIUM 50 MG/SENNA 8.6 MG TAB PO SCH ×2 (09:14→20:50)
--- NOTE | 2017-01-09 11:13 | HHI.PR ---
Subjective Remarks Patient seen and examined today. Patient denies any new complaints. No change clinical status. Objective Vitals Vital Signs Date Time Temp Pulse Resp B/P Pulse Ox O2 Delivery O2 Flow Rate FiO2 01/09/17 08:00 97.7 89 18 128/87 95 01/08/17 20:00 98.4 96 20 166/90 96 I/O 01/08/17 01/08/17 01/08/17 01/09/17 01/09/17 01/09/17 07:00 15:00 23:00 07:00 15:00 23:00 Intake Total 620 ml 240 ml 240 ml 240 ml Balance 620 ml 240 ml 240 ml 240 ml Intake Oral 620 ml 240 ml 240 ml 240 ml # Voids 3 3 2 2 # Bowel Movements 1 0 0 0 Objective Remarks GENERAL: Well-developed, well-nourished, in no acute distress. alert and orientated HEENT: Head is normocephalic without any lesions or masses noted right facial droop. NECK: Trachea midline no deviation. CARDIAC: Regular rhythm, regular rate. S1/S2 are heard. No murmurs gallops or rubs. LUNGS: Clear to auscultation bilaterally. No wheeze, rhonchi or rales. No use of accessory muscles on inspiration or expiration. ABDOMEN: Soft, nontender. Nondistended. Bowel sounds heard in all 4 quadrants. No organomegaly or masses. Negative rebound, negative guarding EXTREMITIES: No edema, pulses are equal bilaterally. No cyanosis or clubbing NEUROLOGY: Mood and affect appear appropriate. Dense right hemiparesis which appears to be improving in the lower extremity. Patient is able to move her right hand second third and fourth digit. 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 Venegas has evaluated the patient. The bleed has been stable on repeat head CT. No surgery needed. Speech therapy has been following the patient continue on soft diet with thin liquids Occupational therapy indicates OT at rehabilitation. Patient will need to continue occupational therapy until discharge Physical therapy indicating PT at rehabilitation. We'll need to continue physical therapy, continue right AFO, Norflex for muscle spasm --trapeze assembly for bed to facilitate functioning --Consulted OT for wheelchair recommendations. Supplied recommendations to case management to provide wheelchair. reconsulted case management to supply wheelchair Patient will likely be able to use a wheelchair and be discharged prior to ambulating out of the hospital or funding available for rehabilitation Right arm pain, controlled Continue Neurontin for right arm neuropathic pain Dysuria, urinary frequency, resolved BNP was performed, sodium level was normal. No signs of central DI Urinalysis was performed which did not indicate any signs of infection Hypokalemia, controlled Patient continued on potassium supplementation Repeat lab work did indicate potassium level 3.8. Continue monitor as needed Hypertension, stable Norvasc 10 mg daily Vasotec, clonidine as needed Alcohol and cocaine abuse dependence patient previously counseled. Status post thiamine Tobacco abuse Counseled on cessation Chronic hepatitis C, chronic Patient with chronic transaminitis continue to follow monthly. liver ultrasound showed fatty infiltration Anxiety. Controlled Seroquel low-dose initiated on 05/27. Bowel regimen Justyna-Colace as needed DVT prophylaxis Sequential compression devices. Lovenox 40 mg daily. Records reviewed, No change in present treatment plan Discharge Planning Discharge planning per case management. Consult case management for wheelchair. Patient will likely be able to use wheelchair and be discharged prior to her being able to be discharged without the wheelchair and home. Jaycob Rebolledo Jan 09, 2017 11:13
[2017-01-09] MEDS: ENOXAPARIN SODIUM 40 MG/0.4 ML SYRINGE SQ SCH (14:10)
[2017-01-09 20:00] VITALS: BP 135/93; PULSE 89; RESP 20; TEMP 97.5; O2SAT 94
[2017-01-09] MEDS: QUEtiapine FUMARATE 25 MG TAB PO SCH (20:50)
[2017-01-10 08:00] VITALS: BP 138/80; PULSE 82; RESP 16; TEMP 97.7; O2SAT 97
[2017-01-10] MEDS: POTASSIUM CHLORIDE 10 MEQ CONTROLLED RELEASE TAB PO SCH (08:39)
[2017-01-10] MEDS: GABAPENTIN 100 MG CAP PO SCH ×3 (08:39→16:56)
[2017-01-10] MEDS: FAMOTIDINE 20 MG TAB PO SCH ×2 (08:39→21:12)
[2017-01-10] MEDS: DOCUSATE SODIUM 50 MG/SENNA 8.6 MG TAB PO SCH ×2 (08:39→21:13)
--- NOTE | 2017-01-10 11:31 | HHI.PR ---
Subjective Remarks Patient seen and examined today. Patient denies any new complaints. Change in clinical status or plan of care Objective Vitals Vital Signs Date Time Temp Pulse Resp B/P Pulse Ox O2 Delivery O2 Flow Rate FiO2 01/09/17 20:00 97.5 89 20 135/93 94 I/O 01/09/17 01/09/17 01/09/17 01/10/17 01/10/17 01/10/17 07:00 15:00 23:00 07:00 15:00 23:00 Intake Total 240 ml 360 ml 480 ml 600 ml Balance 240 ml 360 ml 480 ml 600 ml Intake Oral 240 ml 360 ml 480 ml 600 ml # Voids 2 4 2 3 # Bowel Movements 0 3 0 0 Objective Remarks GENERAL: Well-developed, well-nourished, in no acute distress. alert and orientated HEENT: Head is normocephalic without any lesions or masses noted right facial droop. NECK: Trachea midline no deviation. CARDIAC: Regular rhythm, regular rate. S1/S2 are heard. No murmurs gallops or rubs. LUNGS: Clear to auscultation bilaterally. No wheeze, rhonchi or rales. No use of accessory muscles on inspiration or expiration. ABDOMEN: Soft, nontender. Nondistended. Bowel sounds heard in all 4 quadrants. No organomegaly or masses. Negative rebound, negative guarding EXTREMITIES: No edema, pulses are equal bilaterally. No cyanosis or clubbing NEUROLOGY: Mood and affect appear appropriate. Dense right hemiparesis which appears to be improving in the lower extremity. Patient is able to move her right hand second third and fourth digit. 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 Venegas has evaluated the patient. The bleed has been stable on repeat head CT. No surgery needed. Speech therapy has been following the patient continue on soft diet with thin liquids Occupational therapy indicates OT at rehabilitation. Patient will need to continue occupational therapy until discharge Physical therapy indicating PT at rehabilitation. We'll need to continue physical therapy, continue right AFO, Norflex for muscle spasm --trapeze assembly for bed to facilitate functioning --Consulted OT for wheelchair recommendations. Supplied recommendations to case management to provide wheelchair. reconsulted case management to supply wheelchair Patient will likely be able to use a wheelchair and be discharged prior to ambulating out of the hospital or funding available for rehabilitation Right arm pain, controlled Continue Neurontin for right arm neuropathic pain Dysuria, urinary frequency, resolved BNP was performed, sodium level was normal. No signs of central DI Urinalysis was performed which did not indicate any signs of infection Hypokalemia, controlled Patient continued on potassium supplementation Repeat lab work did indicate potassium level 3.8. Continue monitor as needed Hypertension, stable Norvasc 10 mg daily Vasotec, clonidine as needed Alcohol and cocaine abuse dependence patient previously counseled. Status post thiamine Tobacco abuse Counseled on cessation Chronic hepatitis C, chronic Patient with chronic transaminitis continue to follow monthly. liver ultrasound showed fatty infiltration Anxiety. Controlled Seroquel low-dose initiated on 05/27. Bowel regimen Justyna-Colace as needed DVT prophylaxis Sequential compression devices. Lovenox 40 mg daily. Records reviewed, No change in present treatment plan Discharge Planning Discharge planning per case management. Consult case management for wheelchair. Patient will likely be able to use wheelchair and be discharged prior to her being able to be discharged without the wheelchair and home. Jaycob Rebolledo Jan 10, 2017 11:31
[2017-01-10] MEDS: ENOXAPARIN SODIUM 40 MG/0.4 ML SYRINGE SQ SCH (11:33)
[2017-01-10 20:00] VITALS: BP 121/82; PULSE 85; RESP 20; TEMP 98.3; O2SAT 98
[2017-01-10] MEDS: ORPHENADRINE CITRATE 100 MG SUSTAINED RELEASE TAB PO PRN (21:12)
[2017-01-10] MEDS: QUEtiapine FUMARATE 25 MG TAB PO SCH (21:13)
[2017-01-11] MEDS: GABAPENTIN 100 MG CAP PO SCH ×3 (07:53→16:25)
[2017-01-11] MEDS: DOCUSATE SODIUM 50 MG/SENNA 8.6 MG TAB PO SCH ×2 (07:53→21:11)
[2017-01-11] MEDS: FAMOTIDINE 20 MG TAB PO SCH ×2 (07:54→21:11)
[2017-01-11] MEDS: POTASSIUM CHLORIDE 10 MEQ CONTROLLED RELEASE TAB PO SCH (07:54)
[2017-01-11] MEDS: ENOXAPARIN SODIUM 40 MG/0.4 ML SYRINGE SQ SCH (07:57)
[2017-01-11 08:00] VITALS: BP 139/90; PULSE 80; RESP 18; TEMP 97.2; O2SAT 95
--- NOTE | 2017-01-11 13:08 | HHI.PR ---
Subjective Remarks No acute complaints. No change in clinical status. Objective Vitals Vital Signs Date Time Temp Pulse Resp B/P Pulse Ox O2 Delivery O2 Flow Rate FiO2 01/11/17 08:00 97.2 80 18 139/90 95 01/10/17 20:00 98.3 85 20 121/82 98 I/O 01/10/17 01/10/17 01/10/17 01/11/17 01/11/17 01/11/17 07:00 15:00 23:00 07:00 15:00 23:00 Intake Total 600 ml 1240 ml 640 ml Balance 600 ml 1240 ml 640 ml Intake Oral 600 ml 1240 ml 640 ml # Voids 3 5 3 # Bowel Movements 0 0 0 Objective Remarks GENERAL: Thin patient in no apparent distress. CARDIOVASCULAR: Regular rate and rhythm. RESPIRATORY: RR normal. CTAB. GASTROINTESTINAL: Normoactive bowel sounds. Abdomen soft, nontender, non- distended. NEUROLOGICAL: Awake and alert. PSYCHIATRIC: Insight and judgment normal. 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 (2) Hemiparesis affecting right side as late effect of cerebrovascular accident (CVA) ICD Code: I69.351 Status: Chronic (3) Shortness of breath ICD Code: R06.02 Status: Resolved (4) Fever ICD Code: R50.9 Status: Resolved (5) Abdominal pain ICD Code: R10.9 Status: Resolved (6) Hypertensive emergency ICD Code: I10 Status: Resolved (7) Metabolic acidosis ICD Code: E87.2 Status: Resolved (8) UTI (urinary tract infection) ICD Code: N39.0 Status: Resolved (9) Vaginal discharge ICD Code: N89.8 Status: Resolved (10) Increased urinary frequency ICD Code: R35.0 Status: Resolved Assessment and Plan 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 Venegas has evaluated the patient. The bleed has been stable on repeat head CT. No surgery needed. Speech therapy indicated soft diet with thin liquids Occupational therapy indicates OT at rehabilitation. Patient will need to continue occupational therapy until discharge Physical therapy indicating PT at rehabilitation. We'll need to continue physical therapy, continue right AFO. Norflex for muscle spasms Abdominal pain: Resolved Leukocytosis resolved CT scan did not indicate any abnormality SOB: Resolved. Chest x-ray without acute abnormality. 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 No signs of central DI Urinalysis was performed which did not indicate any signs of infection Continue Belladonna rectal suppository Hypertension: Norvasc 10 mg daily Vasotec, clonidine as needed Hypokalemia: Resolved. Patient is on potassium replacement Monitor BMP as needed Alcohol and cocaine abuse dependence patient previously counseled. Status post thiamine Tobacco abuse Counseled on cessation Chronic hepatitis C, chronic Patient with chronic transaminitis continue to follow periodically. 11/05 AST and ALT improved from prior LFTs. Liver ultrasound showed fatty infiltration Anxiety: Controlled Seroquel low-dose initiated on 05/27. Bowel regimen: Justyna-Colace, magnesium hydroxide as needed. DVT prophylaxis Sequential compression devices. Lovenox 40 mg sq daily. Discharge Planning Occupational therapy recommends shower bench, 3-1 bedside commode for discharge. PT recommends right AFO. CM working on placement. 01/10/17: [facility] to evaluate for placement. Elisabeth Church Jan 11, 2017 13:08
[2017-01-11 20:00] VITALS: BP 144/89; PULSE 84; RESP 18; TEMP 97.4; O2SAT 95
[2017-01-11] MEDS: QUEtiapine FUMARATE 25 MG TAB PO SCH (21:11)
[2017-01-12 08:00] VITALS: BP 118/78; PULSE 80; RESP 19; TEMP 97.4; O2SAT 94
[2017-01-12] MEDS: GABAPENTIN 100 MG CAP PO SCH ×3 (08:10→18:30)
[2017-01-12] MEDS: FAMOTIDINE 20 MG TAB PO SCH ×2 (08:10→20:28)
[2017-01-12] MEDS: ENOXAPARIN SODIUM 40 MG/0.4 ML SYRINGE SQ SCH (08:10)
[2017-01-12] MEDS: POTASSIUM CHLORIDE 10 MEQ CONTROLLED RELEASE TAB PO SCH (08:10)
[2017-01-12] MEDS: DOCUSATE SODIUM 50 MG/SENNA 8.6 MG TAB PO SCH ×2 (08:10→20:28)
--- NOTE | 2017-01-12 09:30 | HHI.PR ---
Subjective Remarks Follow-up on patient with a history of a left basal ganglia bleed with sequelae of right hemiparesis. Patient seen and examined. Patient denies any new acute complaints today. No chest pain or shortness of breath. Objective Vitals Vital Signs Date Time Temp Pulse Resp B/P Pulse Ox O2 Delivery O2 Flow Rate FiO2 01/12/17 08:00 97.4 80 19 118/78 94 01/11/17 20:00 97.4 84 18 144/89 95 I/O 01/11/17 01/11/17 01/11/17 01/12/17 01/12/17 01/12/17 07:00 15:00 23:00 07:00 15:00 23:00 Intake Total 640 ml 1180 ml Balance 640 ml 1180 ml Intake Oral 640 ml 1180 ml # Voids 3 3 4 # Bowel Movements 0 1 0 Objective Remarks GENERAL: Thin patient in no apparent distress. Lying in hospital bed. CARDIOVASCULAR: Regular rate and rhythm. RESPIRATORY: RR normal. CTAB. GASTROINTESTINAL: Abdomen soft, nontender, nondistended. NEUROLOGICAL: Awake and alert. Slight improvement noted in RLE 10/28. PSYCHIATRIC: Insight and judgment normal. Procedures None Urinary Catheter: No Vascular Central Line Catheter: No Procedures None Medications and IVs Current Medications Medications (Trade) Dose Ordered Sig/Nicole Route Start Time Stop Time Status Last Admin (Neurontin) 100 mg TID PO 05/21/16 18:00 01/12/17 08:10 (SEROquel) 12.5 mg HS PO 05/27/16 21:00 01/11/17 21:11 (Pill Splitter) 1 ea UNSCH PRN OTHER 05/27/16 11:15 (KCl) 10 meq DAILY PO 06/06/16 10:00 01/12/17 08:10 (Mag-Al Plus Susp Liq) 30 ml Q6H PRN PO 06/09/16 13:30 11/06/16 22:31 (Tums Chew) 500 mg Q6H PRN CHEW 06/09/16 13:30 07/31/16 08:48 (Zofran Odt) 4 mg Q6H PRN PO 06/18/16 10:00 08/29/16 04:28 (Pepcid) 20 mg BID PO 08/07/16 21:00 01/12/17 08:10 (Norflex Cr) 100 mg Q12H PRN PO 08/14/16 12:00 01/10/17 21:12 (Tylenol) 650 mg Q6H PRN PO 08/29/16 08:15 10/01/16 21:36 (Norvasc) 10 mg DAILY PO 09/04/16 09:00 01/12/17 08:10 (Milk Of Magnesia Liq) 30 ml Q6H PRN PO 10/23/16 17:15 11/24/16 20:13 (Justyna-Colace) 1 tab BID PO 12/22/16 14:45 01/12/17 08:10 (Lovenox Inj) 40 mg Q24H SQ 12/22/16 15:00 01/12/17 08:10 A/P Problem List: (1) 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 (2) Hemiparesis affecting right side as late effect of cerebrovascular accident (CVA) ICD Code: I69.351 Status: Chronic (3) Shortness of breath ICD Code: R06.02 Status: Resolved (4) Fever ICD Code: R50.9 Status: Resolved (5) Abdominal pain ICD Code: R10.9 Status: Resolved (6) Hypertensive emergency ICD Code: I10 Status: Resolved (7) Metabolic acidosis ICD Code: E87.2 Status: Resolved (8) UTI (urinary tract infection) ICD Code: N39.0 Status: Resolved (9) Vaginal discharge ICD Code: N89.8 Status: Resolved (10) Increased urinary frequency ICD Code: R35.0 Status: Resolved Assessment and Plan 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 BP controlled. Neurosurgery, Dr. Venegas has evaluated the patient. The bleed has been stable on repeat head CT. No surgery needed. Speech therapy indicated soft diet with thin liquids Occupational therapy indicates OT at rehabilitation. Patient will need to continue occupational therapy until discharge Physical therapy indicating PT at rehabilitation. We'll need to continue physical therapy, continue right AFO. Norflex for muscle spasms Abdominal pain: Resolved Leukocytosis resolved CT scan did not indicate any abnormality SOB: Resolved. Chest x-ray without acute abnormality. 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 No signs of central DI Urinalysis was performed which did not indicate any signs of infection Hypertension: Controlled. Norvasc 10 mg daily Vasotec, clonidine as needed Hypokalemia: Resolved. Patient is on potassium replacement Monitor BMP as needed Alcohol and cocaine abuse dependence patient previously counseled. Status post thiamine Tobacco abuse Counseled on cessation Chronic hepatitis C, chronic Patient with chronic transaminitis continue to follow periodically. 11/05 AST and ALT improved from prior LFTs. Liver ultrasound showed fatty infiltration Anxiety: Controlled Seroquel low-dose initiated on 05/27. Bowel regimen: Justyna-Colace, magnesium hydroxide as needed. DVT prophylaxis Sequential compression devices. Lovenox 40 mg sq daily. Discharge Planning Occupational therapy recommends shower bench, 3-1 bedside commode for discharge. PT recommends right AFO. CM working on placement. 01/10/17: [facility] to evaluate for placement. 01/12/17: [facility] to evaluate for placement Marjorie Vaughn Jan 12, 2017 09:30
[2017-01-12 20:00] VITALS: BP 121/81; PULSE 88; RESP 20; TEMP 96.6; O2SAT 100
[2017-01-12] MEDS: ORPHENADRINE CITRATE 100 MG SUSTAINED RELEASE TAB PO PRN (20:28)
[2017-01-12] MEDS: QUEtiapine FUMARATE 25 MG TAB PO SCH (20:28)
[2017-01-13 08:00] VITALS: BP 114/81; PULSE 87; RESP 16; TEMP 96.6; O2SAT 96
[2017-01-13] MEDS: GABAPENTIN 100 MG CAP PO SCH ×3 (08:00→18:08)
[2017-01-13] MEDS: POTASSIUM CHLORIDE 10 MEQ CONTROLLED RELEASE TAB PO SCH (08:00)
[2017-01-13] MEDS: DOCUSATE SODIUM 50 MG/SENNA 8.6 MG TAB PO SCH ×2 (08:00→21:29)
[2017-01-13] MEDS: FAMOTIDINE 20 MG TAB PO SCH ×2 (08:00→21:29)
[2017-01-13] MEDS: ENOXAPARIN SODIUM 40 MG/0.4 ML SYRINGE SQ SCH (15:00)
--- NOTE | 2017-01-13 18:11 | HHI.PR ---
Subjective Remarks Follow-up on patient with a history of left basal ganglial bleed with sequelae of right hemiparesis. Patient was seen and examined today. She denies any acute medical issues at this time. Patient's clinical status is unchanged. Objective Vitals Vital Signs Date Time Temp Pulse Resp B/P Pulse Ox O2 Delivery O2 Flow Rate FiO2 01/13/17 08:00 96.6 87 16 114/81 96 01/12/17 20:00 96.6 88 20 121/81 100 I/O 01/12/17 01/12/17 01/12/17 01/13/17 01/13/17 01/13/17 07:00 15:00 23:00 07:00 15:00 23:00 Intake Total 480 ml 240 ml 240 ml Balance 480 ml 240 ml 240 ml Intake Oral 480 ml 240 ml 240 ml # Voids 4 4 3 3 3 # Bowel Movements 0 0 Objective Remarks GENERAL: Thin patient in no apparent distress. Lying in bedside chair. Sleeping but easily arousable. CARDIOVASCULAR: Regular rate and rhythm. RESPIRATORY: RR normal. CTAB. GASTROINTESTINAL: Abdomen soft, nontender, nondistended. NEUROLOGICAL: Awake and alert. Slight improvement noted in RLE 10/28. No appreciable motor function noted in right upper extremity. PSYCHIATRIC: Insight and judgment normal. Procedures None Urinary Catheter: No Vascular Central Line Catheter: No Procedures None Medications and IVs Current Medications Medications (Trade) Dose Ordered Sig/Nicole Route Start Time Stop Time Status Last Admin (Neurontin) 100 mg TID PO 05/21/16 18:00 01/13/17 12:51 (SEROquel) 12.5 mg HS PO 05/27/16 21:00 01/12/17 20:28 (Pill Splitter) 1 ea UNSCH PRN OTHER 05/27/16 11:15 (KCl) 10 meq DAILY PO 06/06/16 10:00 01/13/17 08:00 (Mag-Al Plus Susp Liq) 30 ml Q6H PRN PO 06/09/16 13:30 11/06/16 22:31 (Tums Chew) 500 mg Q6H PRN CHEW 06/09/16 13:30 07/31/16 08:48 (Zofran Odt) 4 mg Q6H PRN PO 06/18/16 10:00 08/29/16 04:28 (Pepcid) 20 mg BID PO 08/07/16 21:00 01/13/17 08:00 (Norflex Cr) 100 mg Q12H PRN PO 08/14/16 12:00 01/12/17 20:28 (Tylenol) 650 mg Q6H PRN PO 08/29/16 08:15 10/01/16 21:36 (Norvasc) 10 mg DAILY PO 09/04/16 09:00 01/13/17 08:00 (Milk Of Magnesia Liq) 30 ml Q6H PRN PO 10/23/16 17:15 11/24/16 20:13 (Justyna-Colace) 1 tab BID PO 12/22/16 14:45 01/13/17 08:00 (Lovenox Inj) 40 mg Q24H SQ 12/22/16 15:00 01/12/17 08:10 A/P Problem List: (1) 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 (2) Hemiparesis affecting right side as late effect of cerebrovascular accident (CVA) ICD Code: I69.351 Status: Chronic (3) Shortness of breath ICD Code: R06.02 Status: Resolved (4) Fever ICD Code: R50.9 Status: Resolved (5) Abdominal pain ICD Code: R10.9 Status: Resolved (6) Hypertensive emergency ICD Code: I10 Status: Resolved (7) Metabolic acidosis ICD Code: E87.2 Status: Resolved (8) UTI (urinary tract infection) ICD Code: N39.0 Status: Resolved (9) Vaginal discharge ICD Code: N89.8 Status: Resolved (10) Increased urinary frequency ICD Code: R35.0 Status: Resolved Assessment and Plan 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 BP controlled. Neurosurgery, Dr. Venegas has evaluated the patient. The bleed has been stable on repeat head CT. No surgery needed. Speech therapy indicated soft diet with thin liquids Occupational therapy indicates OT at rehabilitation. Patient will need to continue occupational therapy until discharge Physical therapy indicating PT at rehabilitation. We'll need to continue physical therapy, continue right AFO. From PTs note, patient had some better balance with hemiwalker today. Norflex for muscle spasms Abdominal pain: Resolved Leukocytosis resolved CT scan did not indicate any abnormality SOB: Resolved. Chest x-ray without acute abnormality. 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 No signs of central DI Urinalysis was performed which did not indicate any signs of infection Hypertension: Well controlled. Continue with Norvasc 10 mg daily Vasotec, clonidine as needed Hypokalemia: Resolved. Patient is on potassium replacement Monitor BMP as needed Alcohol and cocaine abuse dependence patient previously counseled. Status post thiamine Tobacco abuse Counseled on cessation Chronic hepatitis C, chronic Patient with chronic transaminitis continue to follow periodically. 11/05 AST and ALT improved from prior LFTs. Liver ultrasound showed fatty infiltration Anxiety: Controlled Seroquel low-dose initiated on 05/27. Bowel regimen: Justyna-Colace, magnesium hydroxide as needed. DVT prophylaxis Sequential compression devices. Lovenox 40 mg sq daily. Discharge Planning Occupational therapy recommends shower bench, 3-1 bedside commode for discharge. PT recommends right AFO. CM working on placement. 01/10/17: [facility] to evaluate for placement. 01/12/17: [facility] to evaluate for placement Attending Statement Patient seen. Agree with above. Marjorie Vaughn Jan 13, 2017 18:11 Jaycob Bernal MD Jan 14, 2017 07:19
[2017-01-13 20:00] VITALS: BP 136/81; PULSE 92; RESP 20; TEMP 97.5; O2SAT 97
[2017-01-13] MEDS: QUEtiapine FUMARATE 25 MG TAB PO SCH (21:29)
[2017-01-13] MEDS: ORPHENADRINE CITRATE 100 MG SUSTAINED RELEASE TAB PO PRN (21:29)
[2017-01-14 08:00] VITALS: BP 125/81; PULSE 88; RESP 16; TEMP 97.4; O2SAT 94
--- NOTE | 2017-01-14 09:16 | HHI.PR ---
Subjective Remarks Follow-up on patient with history of hemorrhagic stroke and subsequent right- sided hemiparesis. Patient seen and examined today. Patient denies any complaints. States she slept well. No chest pain or shortness of breath. Objective Vitals Vital Signs Date Time Temp Pulse Resp B/P Pulse Ox O2 Delivery O2 Flow Rate FiO2 01/14/17 08:00 97.4 88 16 125/81 94 01/13/17 20:00 97.5 92 20 136/81 97 I/O 01/13/17 01/13/17 01/13/17 01/14/17 01/14/17 01/14/17 07:00 15:00 23:00 07:00 15:00 23:00 Intake Total 240 ml 240 ml 720 ml 480 ml 0 ml Balance 240 ml 240 ml 720 ml 480 ml 0 ml Intake Oral 240 ml 240 ml 720 ml 480 ml IV Total 0 ml # Voids 3 3 2 2 # Bowel Movements 0 0 0 Objective Remarks GENERAL: Thin patient in no apparent distress. Lying in bedside chair. Sleeping but easily arousable. CARDIOVASCULAR: Regular rate and rhythm. RESPIRATORY: RR normal. CTAB. GASTROINTESTINAL: Abdomen soft, nontender, nondistended. NEUROLOGICAL: Awake and alert. Slight improvement noted in RLE 1. No appreciable motor function noted in right upper extremity. PSYCHIATRIC: Insight and judgment normal. Procedures None Urinary Catheter: No Vascular Central Line Catheter: No Procedures None Medications and IVs Current Medications Medications (Trade) Dose Ordered Sig/Nicole Route Start Time Stop Time Status Last Admin (Neurontin) 100 mg TID PO 05/21/16 18:00 01/13/17 18:08 (SEROquel) 12.5 mg HS PO 05/27/16 21:00 01/13/17 21:29 (Pill Splitter) 1 ea UNSCH PRN OTHER 05/27/16 11:15 (KCl) 10 meq DAILY PO 06/06/16 10:00 01/13/17 08:00 (Mag-Al Plus Susp Liq) 30 ml Q6H PRN PO 06/09/16 13:30 11/06/16 22:31 (Tums Chew) 500 mg Q6H PRN CHEW 06/09/16 13:30 07/31/16 08:48 (Zofran Odt) 4 mg Q6H PRN PO 06/18/16 10:00 116/16 04:28 (Pepcid) 20 mg BID PO 08/07/16 21:00 01/13/17 21:29 (Norflex Cr) 100 mg Q12H PRN PO 08/14/16 12:00 01/13/17 21:29 (Tylenol) 650 mg Q6H PRN PO 08/29/16 08:15 10/01/16 21:36 (Norvasc) 10 mg DAILY PO 09/04/16 09:00 01/13/17 08:00 (Milk Of Magnesia Liq) 30 ml Q6H PRN PO 10/23/16 17:15 11/24/16 20:13 (Justyna-Colace) 1 tab BID PO 12/22/16 14:45 01/13/17 21:29 (Lovenox Inj) 40 mg Q24H SQ 12/22/16 15:00 01/12/17 08:10 A/P Problem List: (1) 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 (2) Hemiparesis affecting right side as late effect of cerebrovascular accident (CVA) ICD Code: I69.351 Status: Chronic (3) Shortness of breath ICD Code: R06.02 Status: Resolved (4) Fever ICD Code: R50.9 Status: Resolved (5) Abdominal pain ICD Code: R10.9 Status: Resolved (6) Hypertensive emergency ICD Code: I10 Status: Resolved (7) Metabolic acidosis ICD Code: E87.2 Status: Resolved (8) UTI (urinary tract infection) ICD Code: N39.0 Status: Resolved (9) Vaginal discharge ICD Code: N89.8 Status: Resolved (10) Increased urinary frequency ICD Code: R35.0 Status: Resolved Assessment and Plan Left basal ganglia bleed with 4mm MLS with dense Right hemiparesis, stable. secondary to cocaine and uncontrolled hypertension. BP controlled, 125/81. Neurosurgery, Dr. Venegas has evaluated the patient. The bleed has been stable on repeat head CT. No surgery needed. Speech therapy indicated soft diet with thin liquids Occupational therapy indicates OT at rehabilitation. Patient will need to continue occupational therapy until discharge Physical therapy indicating PT at rehabilitation. Continue participation physical therapy, continue right AFO. From PTs note, patient had some better balance with hemiwalker. Norflex for muscle spasms Abdominal pain: Resolved Leukocytosis resolved CT scan did not indicate any abnormality SOB: Resolved. Chest x-ray without acute abnormality. 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 No signs of central DI Urinalysis was performed which did not indicate any signs of infection Hypertension: Well controlled. Continue with Norvasc 10 mg daily Vasotec, clonidine as needed Hypokalemia: Resolved. Patient is on potassium replacement Monitor BMP as needed Alcohol and cocaine abuse dependence patient previously counseled. Status post thiamine Tobacco abuse Counseled on cessation Chronic hepatitis C, chronic Patient with chronic transaminitis continue to follow periodically. Repeat lab studies ordered for tomorrow a.m. Liver ultrasound showed fatty infiltration Anxiety: Controlled Seroquel low-dose initiated on 05/27. Bowel regimen: Justyna-Colace, magnesium hydroxide as needed. DVT prophylaxis Sequential compression devices. Lovenox 40 mg sq daily. Discharge Planning Occupational therapy recommends shower bench, 3-1 bedside commode for discharge. PT recommends right AFO. CM working on placement. 01/10/17: [facility] to evaluate for placement. 01/12/17: [facility] to evaluate for placement Attending Statement Patient seen. Agree with above. Marjorie Vaughn Jan 14, 2017 09:16 Jaycob Bernal MD Jan 14, 2017 18:45
[2017-01-14] MEDS: DOCUSATE SODIUM 50 MG/SENNA 8.6 MG TAB PO SCH ×2 (09:18→20:42)
[2017-01-14] MEDS: POTASSIUM CHLORIDE 10 MEQ CONTROLLED RELEASE TAB PO SCH (09:18)
[2017-01-14] MEDS: GABAPENTIN 100 MG CAP PO SCH ×3 (09:18→17:37)
[2017-01-14] MEDS: FAMOTIDINE 20 MG TAB PO SCH ×2 (09:18→20:42)
[2017-01-14] MEDS: ENOXAPARIN SODIUM 40 MG/0.4 ML SYRINGE SQ SCH (14:43)
[2017-01-14 20:00] VITALS: BP 129/83; PULSE 89; RESP 20; TEMP 96.2; O2SAT 93
[2017-01-14] MEDS: QUEtiapine FUMARATE 25 MG TAB PO SCH (20:42)
[2017-01-15 08:00] VITALS: BP 127/91; PULSE 84; RESP 22; TEMP 97.7; O2SAT 96
[2017-01-15] MEDS: POTASSIUM CHLORIDE 10 MEQ CONTROLLED RELEASE TAB PO SCH (08:53)
[2017-01-15] MEDS: GABAPENTIN 100 MG CAP PO SCH ×3 (08:53→14:41)
[2017-01-15] MEDS: FAMOTIDINE 20 MG TAB PO SCH ×2 (08:54→20:32)
[2017-01-15] MEDS: DOCUSATE SODIUM 50 MG/SENNA 8.6 MG TAB PO SCH ×2 (08:54→20:32)
[2017-01-15 08:55] LABS: AUTOMATED NEUTROPHIL # 7.7 TH/MM3 (1.8-7.7); BASOPHIL % 0.3 % (0.0-2.0); EOSINOPHIL # 0.2 TH/MM3 (0-0.4); EOSINOPHIL % 1.8 % (0.0-4.0); HEMO FLAGS DIFF FINAL; LYMPH % 24.2 % (9.0-44.0); LYMPHOCYTE # 2.8 TH/MM3 (1.0-4.8); MEAN CELL VOLUME 82.6 FL (80.0-100.0); MEAN CORPUSCULAR HEMOGLOBIN 27.2 PG (27.0-34.0); MEAN CORPUSCULAR HGB CONC 32.9 % (32.0-36.0); MONO % 7.5 % (0.0-8.0); NEUT % 66.2 % (16.0-70.0); PLATELET COUNT 283 TH/MM3 (150-450); RED BLOOD COUNT 5.08 MIL/MM3 (4.00-5.30); WHITE BLOOD COUNT 11.6 TH/MM3 (4.0-11.0)
[2017-01-15] MEDS: ORPHENADRINE CITRATE 100 MG SUSTAINED RELEASE TAB PO PRN (08:58)
[2017-01-15 09:05] LABS: CHLORIDE 104 MEQ/L (98-107); POTASSIUM 3.6 MEQ/L (3.5-5.1); SODIUM (NA) 138 MEQ/L (136-145)
[2017-01-15 09:09] LABS: ANION GAP 9 MEQ/L (5-15); BICARBONATE 24.9 MEQ/L (21.0-32.0); BLOOD UREA NITROGEN 17 MG/DL (7-18)
[2017-01-15 09:12] LABS: ALT (GPT) 301 U/L (10-53); AST (GOT) 174 U/L (15-37); GLOMERULAR FILTRATION RATE 89 ML/MIN (>89)
[2017-01-15 09:14] LABS: TOTAL BILIRUBIN ADULT 0.4 MG/DL (0.2-1.0)
[2017-01-15 09:15] LABS: ALKALINE PHOSPHATASE 97 U/L (45-117)
--- NOTE | 2017-01-15 12:43 | HHI.PR ---
Subjective Remarks Problem patient with a history of hemorrhagic stroke and subsequent right-sided hemiparesis. Patient was seen and examined today. She denies any acute complaints. Denies any chest pain, shortness of breath or abdominal pain. Reports BM earlier this morning. Objective Vitals Vital Signs Date Time Temp Pulse Resp B/P Pulse Ox O2 Delivery O2 Flow Rate FiO2 01/15/17 08:00 97.7 84 22 127/91 96 01/14/17 20:00 96.2 89 20 129/83 93 I/O 01/14/17 01/14/17 01/14/17 01/15/17 01/15/17 01/15/17 07:00 15:00 23:00 07:00 15:00 23:00 Intake Total 480 ml 420 ml 600 ml 480 ml Balance 480 ml 420 ml 600 ml 480 ml Intake Oral 480 ml 420 ml 600 ml 480 ml IV Total 0 ml 0 ml 0 ml # Voids 2 5 2 2 # Bowel Movements 0 0 0 0 Result Diagram: 01/15/1782301/15/17823 Objective Remarks GENERAL: Thin patient in no apparent distress. Lying in bed. Awake. CARDIOVASCULAR: Regular rate and rhythm. RESPIRATORY: RR normal. CTAB. GASTROINTESTINAL: Abdomen soft, nontender, nondistended. NEUROLOGICAL: Awake and alert. Slight improvement noted in RLE 1. No appreciable motor function noted in right upper extremity. PSYCHIATRIC: Insight and judgment normal. Procedures None Urinary Catheter: No Vascular Central Line Catheter: No Procedures None Medications and IVs Current Medications Medications (Trade) Dose Ordered Sig/Nicole Route Start Time Stop Time Status Last Admin (Neurontin) 100 mg TID PO 05/21/16 18:00 01/15/17 12:19 (SEROquel) 12.5 mg HS PO 05/27/16 21:00 01/14/17 20:42 (Pill Splitter) 1 ea UNSCH PRN OTHER 05/27/16 11:15 (KCl) 10 meq DAILY PO 06/06/16 10:00 01/15/17 08:53 (Mag-Al Plus Susp Liq) 30 ml Q6H PRN PO 06/09/16 13:30 11/06/16 22:31 (Tums Chew) 500 mg Q6H PRN CHEW 06/09/16 13:30 07/31/16 08:48 (Zofran Odt) 4 mg Q6H PRN PO 06/18/16 10:00 08/29/16 04:28 (Pepcid) 20 mg BID PO 08/07/16 21:00 01/15/17 08:54 (Norflex Cr) 100 mg Q12H PRN PO 08/14/16 12:00 01/15/17 08:58 (Tylenol) 650 mg Q6H PRN PO 08/29/16 08:15 10/01/16 21:36 (Norvasc) 10 mg DAILY PO 09/04/16 09:00 01/15/17 08:54 (Milk Of Magnesia Liq) 30 ml Q6H PRN PO 10/23/16 17:15 11/24/16 20:13 (Justyna-Colace) 1 tab BID PO 12/22/16 14:45 01/15/17 08:54 (Lovenox Inj) 40 mg Q24H SQ 12/22/16 15:00 01/14/17 14:43 A/P Problem List: (1) 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 (2) Hemiparesis affecting right side as late effect of cerebrovascular accident (CVA) ICD Code: I69.351 Status: Chronic (3) Shortness of breath ICD Code: R06.02 Status: Resolved (4) Fever ICD Code: R50.9 Status: Resolved (5) Abdominal pain ICD Code: R10.9 Status: Resolved (6) Hypertensive emergency ICD Code: I10 Status: Resolved (7) Metabolic acidosis ICD Code: E87.2 Status: Resolved (8) UTI (urinary tract infection) ICD Code: N39.0 Status: Resolved (9) Vaginal discharge ICD Code: N89.8 Status: Resolved (10) Increased urinary frequency ICD Code: R35.0 Status: Resolved Assessment and Plan Left basal ganglia bleed with 4mm MLS with dense Right hemiparesis, stable. secondary to cocaine and uncontrolled hypertension. BP 127/91. Neurosurgery, Dr. Venegas has evaluated the patient. The bleed has been stable on repeat head CT. No surgery needed. Speech therapy indicated soft diet with thin liquids Occupational therapy indicates OT at rehabilitation. Patient will need to continue occupational therapy until discharge Physical therapy indicating PT at rehabilitation. Continue participation physical therapy, continue right AFO. Patient participating very infrequently with physical therapy. Norflex for muscle spasms Abdominal pain: Resolved Leukocytosis resolved CT scan did not indicate any abnormality SOB: Resolved. Chest x-ray without acute abnormality. Right arm pain: Controlled Continue Neurontin for right arm neuropathic pain Increased urinary frequency: Resolved BNP was performed, sodium level was normal. No signs of central DI Urinalysis was performed which did not indicate any signs of infection Hypertension: Controlled. Continue with Norvasc 10 mg daily Vasotec, clonidine as needed Hypokalemia: Resolved. Patient is on potassium replacement Monitor BMP as needed Alcohol and cocaine abuse dependence patient previously counseled. Status post thiamine Tobacco abuse Counseled on cessation Chronic hepatitis C, chronic Patient with chronic transaminitis continue to follow periodically. Repeat lab studies ordered. AST 174, ALT 301. Will continue to monitor. Liver ultrasound showed fatty infiltration Anxiety: Controlled Seroquel low-dose initiated on 05/27. Bowel regimen: Justyna-Colace, magnesium hydroxide as needed. DVT prophylaxis Sequential compression devices. Lovenox 40 mg sq daily. Discharge Planning Occupational therapy recommends shower bench, 3-1 bedside commode for discharge. PT recommends right AFO. CM working on placement. 01/10/17: [facility] to evaluate for placement. 01/12/17: [facility] to evaluate for placement Attending Statement Patient seen. Agree with above. Marjorie Vaughn Jan 15, 2017 12:42 Jaycob Bernal MD Jan 15, 2017 12:45
[2017-01-15] MEDS: ENOXAPARIN SODIUM 40 MG/0.4 ML SYRINGE SQ SCH (14:42)
[2017-01-15 20:00] VITALS: BP 138/85; PULSE 87; RESP 21; TEMP 97.9; O2SAT 98
[2017-01-15] MEDS: QUEtiapine FUMARATE 25 MG TAB PO SCH (20:32)
[2017-01-16 08:00] VITALS: BP 127/82; PULSE 89; RESP 19; TEMP 97.5; O2SAT 95
[2017-01-16] MEDS: FAMOTIDINE 20 MG TAB PO SCH ×2 (10:07→20:42)
[2017-01-16] MEDS: DOCUSATE SODIUM 50 MG/SENNA 8.6 MG TAB PO SCH ×2 (10:07→20:42)
[2017-01-16] MEDS: POTASSIUM CHLORIDE 10 MEQ CONTROLLED RELEASE TAB PO SCH (10:07)
[2017-01-16] MEDS: GABAPENTIN 100 MG CAP PO SCH ×3 (10:07→17:04)
[2017-01-16 14:10] LABS: BLOOD, URINE NEG (NEG); GLUCOSE,URINE NEG (NEG); KETONE, URINE NEG (NEG); NITRITE,URINE NEG (NEG)
[2017-01-16 14:15] LABS: METHOD OF COLLECTION CLEAN CATCH; URINE COLOR YELLOW (YELLW/STRAW)
[2017-01-16 14:16] LABS: COMMENT (UR) CULTURE INDICATED; CULTURE IF INDICATED CULTURE INDICATED; TRANSITIONAL EPI CELLS, URINE 0-5 /hpf
--- NOTE | 2017-01-16 15:17 | HHI.PR ---
Subjective Remarks Follow-up on patient with a history of hemorrhagic stroke and subsequent right- sided hemiparesis. Patient was seen and examined in her room today. She is lying in her hospital bed. She does admit today that she's had some burning with urination. Denies any chest pain abdominal pain or shortness of breath. She is upset that her breakfast has not come yet because she is ready to take a nap. Objective Vitals Vital Signs Date Time Temp Pulse Resp B/P Pulse Ox O2 Delivery O2 Flow Rate FiO2 01/16/17 08:00 97.5 89 19 127/82 95 01/15/17 20:00 97.9 87 21 138/85 98 I/O 01/15/17 01/15/17 01/15/17 01/16/17 01/16/17 01/16/17 07:00 15:00 23:00 07:00 15:00 23:00 Intake Total 480 ml 1000 ml 240 ml 240 ml 1060 ml Balance 480 ml 1000 ml 240 ml 240 ml 1060 ml Intake Oral 480 ml 1000 ml 240 ml 240 ml 1060 ml IV Total 0 ml # Voids 2 5 3 2 3 # Bowel Movements 0 0 1 0 Result Diagram: 01/15/1724 01/15/17 0824 Objective Remarks GENERAL: Thin patient in no apparent distress. Lying in bed. Awake. CARDIOVASCULAR: Regular rate and rhythm. RESPIRATORY: RR normal. CTAB. GASTROINTESTINAL: Abdomen soft, nontender, nondistended. NEUROLOGICAL: Awake and alert. Slight improvement noted in RLE 1. No appreciable motor function noted in right upper extremity. PSYCHIATRIC: Insight and judgment normal. Procedures None Urinary Catheter: No Vascular Central Line Catheter: No Procedures None Medications and IVs Current Medications Medications (Trade) Dose Ordered Sig/Nicole Route Start Time Stop Time Status Last Admin (Neurontin) 100 mg TID PO 05/21/16 18:00 01/16/17 12:46 (SEROquel) 12.5 mg HS PO 05/27/16 21:00 01/15/17 20:32 (Pill Splitter) 1 ea UNSCH PRN OTHER 05/27/16 11:15 (KCl) 10 meq DAILY PO 06/06/16 10:00 01/16/17 10:07 (Mag-Al Plus Susp Liq) 30 ml Q6H PRN PO 06/09/16 13:30 11/06/16 22:31 (Tums Chew) 500 mg Q6H PRN CHEW 06/09/16 13:30 07/31/16 08:48 (Zofran Odt) 4 mg Q6H PRN PO 06/18/16 10:00 08/29/16 04:28 (Pepcid) 20 mg BID PO 08/07/16 21:00 01/16/17 10:07 (Norflex Cr) 100 mg Q12H PRN PO 08/14/16 12:00 01/15/17 08:58 (Tylenol) 650 mg Q6H PRN PO 08/29/16 08:15 10/01/16 21:36 (Norvasc) 10 mg DAILY PO 09/04/16 09:00 01/16/17 10:07 (Milk Of Magnesia Liq) 30 ml Q6H PRN PO 10/23/16 17:15 11/24/16 20:13 (Justyna-Colace) 1 tab BID PO 12/22/16 14:45 01/16/17 10:07 (Lovenox Inj) 40 mg Q24H SQ 12/22/16 15:00 01/15/17 14:42 A/P Problem List: (1) 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 (2) Hemiparesis affecting right side as late effect of cerebrovascular accident (CVA) ICD Code: I69.351 Status: Chronic (3) Shortness of breath ICD Code: R06.02 Status: Resolved (4) Fever ICD Code: R50.9 Status: Resolved (5) Abdominal pain ICD Code: R10.9 Status: Resolved (6) Hypertensive emergency ICD Code: I10 Status: Resolved (7) Metabolic acidosis ICD Code: E87.2 Status: Resolved (8) UTI (urinary tract infection) ICD Code: N39.0 Status: Resolved (9) Vaginal discharge ICD Code: N89.8 Status: Resolved (10) Increased urinary frequency ICD Code: R35.0 Status: Resolved Assessment and Plan Left basal ganglia bleed with 4mm MLS with dense Right hemiparesis, stable. secondary to cocaine and uncontrolled hypertension. BP 127/91. Neurosurgery, Dr. Venegas has evaluated the patient. The bleed has been stable on repeat head CT. No surgery needed. Speech therapy indicated soft diet with thin liquids Occupational therapy indicates OT at rehabilitation. Patient will need to continue occupational therapy until discharge Physical therapy indicating PT at rehabilitation. Continue participation physical therapy, continue right AFO. Patient participating very infrequently with physical therapy. Norflex for muscle spasms Mild leukocytosis with complaints of dysuria - UA suggestive of UTI - follow up on UCX results - Macrobid 100mg q6h BID Abdominal pain: Resolved Leukocytosis resolved CT scan did not indicate any abnormality SOB: Resolved. Chest x-ray without acute abnormality. Right arm pain: Controlled Continue Neurontin for right arm neuropathic pain Increased urinary frequency: Resolved BNP was performed, sodium level was normal. No signs of central DI Urinalysis was performed which did not indicate any signs of infection Hypertension: Controlled. Continue with Norvasc 10 mg daily Vasotec, clonidine as needed Hypokalemia: Resolved. Patient is on potassium replacement Monitor BMP as needed Alcohol and cocaine abuse dependence patient previously counseled. Status post thiamine Tobacco abuse Counseled on cessation Chronic hepatitis C, chronic Patient with chronic transaminitis continue to follow periodically. Repeat lab studies ordered. AST 174, ALT 301. Will continue to monitor. Liver ultrasound showed fatty infiltration Anxiety: Controlled Seroquel low-dose initiated on 05/27. Bowel regimen: Justyna-Colace, magnesium hydroxide as needed. DVT prophylaxis Sequential compression devices. Lovenox 40 mg sq daily. Discharge Planning Occupational therapy recommends shower bench, 3-1 bedside commode for discharge. PT recommends right AFO. CM working on placement. 01/10/17: [facility] to evaluate for placement. 01/12/17: [facility] to evaluate for placement Attending Statement Patient seen. Agree with above. Marjorie Vaughn Jan 16, 2017 15:17 Jaycob Bernal MD Jan 16, 2017 15:44
[2017-01-16] MEDS: ENOXAPARIN SODIUM 40 MG/0.4 ML SYRINGE SQ SCH (17:04)
[2017-01-16 20:00] VITALS: BP 123/85; PULSE 86; RESP 21; TEMP 97.8; O2SAT 97
[2017-01-16] MEDS: NITROFURANTOIN MONOHYD MACROCR 100 MG CAP PO SCH (20:42)
[2017-01-16] MEDS: QUEtiapine FUMARATE 25 MG TAB PO SCH (20:43)
[2017-01-17 08:00] VITALS: BP 118/79; PULSE 74; RESP 16; TEMP 96.9; O2SAT 97
[2017-01-17] MEDS: DOCUSATE SODIUM 50 MG/SENNA 8.6 MG TAB PO SCH ×2 (08:14→20:51)
[2017-01-17] MEDS: GABAPENTIN 100 MG CAP PO SCH ×3 (08:14→18:15)
[2017-01-17] MEDS: NITROFURANTOIN MONOHYD MACROCR 100 MG CAP PO SCH ×2 (08:14→20:51)
[2017-01-17] MEDS: POTASSIUM CHLORIDE 10 MEQ CONTROLLED RELEASE TAB PO SCH (08:15)
[2017-01-17] MEDS: FAMOTIDINE 20 MG TAB PO SCH ×2 (08:15→20:53)
[2017-01-17] MEDS: ENOXAPARIN SODIUM 40 MG/0.4 ML SYRINGE SQ SCH (15:07)
--- NOTE | 2017-01-17 17:36 | HHI.PR ---
Subjective Remarks Follow-up on patient with history of hemorrhagic stroke and subsequent right- sided hemiparesis. Patient seen and examined. Patient has no new complaints today. Still having some burning with urination but no hematuria. No fever. No chest pain or abdominal pain. Objective Vitals Vital Signs Date Time Temp Pulse Resp B/P Pulse Ox O2 Delivery O2 Flow Rate FiO2 01/17/17 08:00 96.9 74 16 118/79 97 01/16/17 20:00 97.8 86 21 123/85 97 I/O 01/16/17 01/16/17 01/16/17 01/17/17 01/17/17 01/17/17 07:00 15:00 23:00 07:00 15:00 23:00 Intake Total 240 ml 1060 ml 240 ml 240 ml 580 ml Balance 240 ml 1060 ml 240 ml 240 ml 580 ml Intake Oral 240 ml 1060 ml 240 ml 240 ml 580 ml # Voids 2 3 4 2 5 # Bowel Movements 0 0 1 Result Diagram: 01/15/1782301/15/17823 Objective Remarks GENERAL: Thin patient in no apparent distress. Lying in bed. Awake. CARDIOVASCULAR: Regular rate and rhythm. RESPIRATORY: RR normal. CTAB. GASTROINTESTINAL: Abdomen soft, nontender, nondistended. NEUROLOGICAL: Awake and alert. Slight improvement noted in RLE 10/28. No appreciable motor function noted in right upper extremity. PSYCHIATRIC: Insight and judgment normal. Procedures None Urinary Catheter: No Vascular Central Line Catheter: No Procedures None Medications and IVs Current Medications Medications (Trade) Dose Ordered Sig/Nicole Route Start Time Stop Time Status Last Admin (Neurontin) 100 mg TID PO 05/21/16 18:00 01/17/17 13:48 (SEROquel) 12.5 mg HS PO 05/27/16 21:00 01/16/17 20:43 (Pill Splitter) 1 ea UNSCH PRN OTHER 05/27/16 11:15 (KCl) 10 meq DAILY PO 06/06/16 10:00 01/17/17 08:15 (Mag-Al Plus Susp Liq) 30 ml Q6H PRN PO 06/09/16 13:30 11/06/16 22:31 (Tums Chew) 500 mg Q6H PRN CHEW 06/09/16 13:30 10/8/16 08:48 (Zofran Odt) 4 mg Q6H PRN PO 06/18/16 10:00 08/29/16 04:28 (Pepcid) 20 mg BID PO 08/07/16 21:00 01/17/17 08:15 (Norflex Cr) 100 mg Q12H PRN PO 08/14/16 12:00 01/15/17 08:58 (Tylenol) 650 mg Q6H PRN PO 08/29/16 08:15 10/01/16 21:36 (Norvasc) 10 mg DAILY PO 09/04/16 09:00 01/17/17 08:15 (Milk Of Magnesia Liq) 30 ml Q6H PRN PO 10/23/16 17:15 11/24/16 20:13 (Justyna-Colace) 1 tab BID PO 12/22/16 14:45 01/17/17 08:14 (Lovenox Inj) 40 mg Q24H SQ 12/22/16 15:00 01/17/17 15:07 (Macrobid) 100 mg BID PO 01/16/17 21:00 01/23/17 09:01 01/17/17 08:14 A/P Problem List: (1) 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 (2) Hemiparesis affecting right side as late effect of cerebrovascular accident (CVA) ICD Code: I69.351 Status: Chronic (3) Shortness of breath ICD Code: R06.02 Status: Resolved (4) Fever ICD Code: R50.9 Status: Resolved (5) Abdominal pain ICD Code: R10.9 Status: Resolved (6) Hypertensive emergency ICD Code: I10 Status: Resolved (7) Metabolic acidosis ICD Code: E87.2 Status: Resolved (8) UTI (urinary tract infection) ICD Code: N39.0 Status: Resolved (9) Vaginal discharge ICD Code: N89.8 Status: Resolved (10) Increased urinary frequency ICD Code: R35.0 Status: Resolved Assessment and Plan Left basal ganglia bleed with 4mm MLS with dense Right hemiparesis, stable. secondary to cocaine and uncontrolled hypertension. BP 118/79. Neurosurgery, Dr. Venegas has evaluated the patient. The bleed has been stable on repeat head CT. No surgery needed. Speech therapy indicated soft diet with thin liquids Occupational therapy indicates OT at rehabilitation. Patient will need to continue occupational therapy until discharge Physical therapy indicating PT at rehabilitation. Continue participation physical therapy, continue right AFO. Patient participating very infrequently with physical therapy. Norflex for muscle spasms Symptomatic UTI - UA suggestive of UTI, still complaining of dysuria - Urine culture shows mixed gram-positive manasa - Continue with Macrobid 100mg BID Abdominal pain: Resolved Leukocytosis resolved CT scan did not indicate any abnormality SOB: Resolved. Chest x-ray without acute abnormality. Right arm pain: Controlled Continue Neurontin for right arm neuropathic pain Increased urinary frequency: Resolved BNP was performed, sodium level was normal. No signs of central DI Urinalysis was performed which did not indicate any signs of infection Hypertension: Controlled. Continue with Norvasc 10 mg daily Vasotec, clonidine as needed Hypokalemia: Resolved. Patient is on potassium replacement Monitor BMP as needed Alcohol and cocaine abuse dependence patient previously counseled. Status post thiamine Tobacco abuse Counseled on cessation Chronic hepatitis C, chronic Patient with chronic transaminitis continue to follow periodically. Repeat lab studies ordered. AST 174, ALT 301. Will continue to monitor. Liver ultrasound showed fatty infiltration Anxiety: Controlled Seroquel low-dose initiated on 05/27. Bowel regimen: Justyna-Colace, magnesium hydroxide as needed. DVT prophylaxis Sequential compression devices. Lovenox 40 mg sq daily. Discharge Planning Occupational therapy recommends shower bench, 3-1 bedside commode for discharge. PT recommends right AFO. CM working on placement. 01/10/17: [facility] to evaluate for placement. 01/12/17: [facility] to evaluate for placement Attending Statement Patient seen. Agree with above. Marjorie Vaughn Jan 17, 2017 17:36 Jaycob Bernal MD Jan 18, 2017 07:50
[2017-01-17 20:00] VITALS: BP 126/84; PULSE 90; RESP 20; TEMP 98; O2SAT 96
[2017-01-17] MEDS: QUEtiapine FUMARATE 25 MG TAB PO SCH (20:51)
[2017-01-18] MEDS: POTASSIUM CHLORIDE 10 MEQ CONTROLLED RELEASE TAB PO SCH (07:58)
[2017-01-18] MEDS: DOCUSATE SODIUM 50 MG/SENNA 8.6 MG TAB PO SCH ×2 (07:58→20:35)
[2017-01-18] MEDS: NITROFURANTOIN MONOHYD MACROCR 100 MG CAP PO SCH ×2 (07:58→20:35)
[2017-01-18] MEDS: GABAPENTIN 100 MG CAP PO SCH ×3 (07:58→16:57)
[2017-01-18] MEDS: FAMOTIDINE 20 MG TAB PO SCH ×2 (07:59→20:35)
[2017-01-18 08:00] VITALS: BP 131/78; PULSE 83; RESP 17; TEMP 97.1; O2SAT 95
[2017-01-18] MEDS: ENOXAPARIN SODIUM 40 MG/0.4 ML SYRINGE SQ SCH (13:32)
--- NOTE | 2017-01-18 13:51 | HHI.PR ---
Subjective Remarks Follow-up on patient with history of hemorrhagic stroke and subsequent right- sided hemiparesis. Patient seen and examined today. She continues to have some slight dysuria but it has improved. She reports that she is urinating less frequently. She denies any other complaints including chest pain, shortness of breath or abdominal pain. Objective Vitals Vital Signs Date Time Temp Pulse Resp B/P Pulse Ox O2 Delivery O2 Flow Rate FiO2 01/18/17 08:00 97.1 83 17 131/78 95 01/17/17 20:00 98.0 90 20 126/84 96 I/O 01/17/17 01/17/17 01/17/17 01/18/17 01/18/17 01/18/17 07:00 15:00 23:00 07:00 15:00 23:00 Intake Total 240 ml 580 ml 240 ml 120 ml Balance 240 ml 580 ml 240 ml 120 ml Intake Oral 240 ml 580 ml 240 ml 120 ml # Voids 2 5 2 2 # Bowel Movements 1 0 0 Result Diagram: 01/15/1782301/15/17823 Objective Remarks GENERAL: Thin patient in no apparent distress. Lying in bed. Asleep but easily arousable. CARDIOVASCULAR: Regular rate and rhythm. RESPIRATORY: RR normal. CTAB. GASTROINTESTINAL: Abdomen soft, nontender, nondistended. NEUROLOGICAL: Awake and alert. Slight improvement noted in RLE 10/28. No appreciable motor function noted in right upper extremity. PSYCHIATRIC: Insight and judgment normal. Procedures None Urinary Catheter: No Vascular Central Line Catheter: No Procedures None Medications and IVs Current Medications Medications (Trade) Dose Ordered Sig/Nicole Route Start Time Stop Time Status Last Admin (Neurontin) 100 mg TID PO 05/21/16 18:00 01/18/17 13:32 (SEROquel) 12.5 mg HS PO 05/27/16 21:00 01/17/17 20:51 (Pill Splitter) 1 ea UNSCH PRN OTHER 05/27/16 11:15 (KCl) 10 meq DAILY PO 06/06/16 10:00 01/18/17 07:58 (Mag-Al Plus Susp Liq) 30 ml Q6H PRN PO 06/09/16 13:30 11/06/16 22:31 (Tums Chew) 500 mg Q6H PRN CHEW 06/09/16 13:30 07/31/16 08:48 (Zofran Odt) 4 mg Q6H PRN PO 06/18/16 10:00 08/29/16 04:28 (Pepcid) 20 mg BID PO 08/07/16 21:00 01/18/17 07:59 (Norflex Cr) 100 mg Q12H PRN PO 08/14/16 12:00 01/15/17 08:58 (Tylenol) 650 mg Q6H PRN PO 08/29/16 08:15 10/01/16 21:36 (Norvasc) 10 mg DAILY PO 09/04/16 09:00 01/18/17 07:58 (Milk Of Magnesia Liq) 30 ml Q6H PRN PO 10/23/16 17:15 11/24/16 20:13 (Justyna-Colace) 1 tab BID PO 12/22/16 14:45 01/18/17 07:58 (Lovenox Inj) 40 mg Q24H SQ 12/22/16 15:00 01/18/17 13:32 (Macrobid) 100 mg BID PO 01/16/17 21:00 01/23/17 09:01 01/18/17 07:58 A/P Problem List: (1) 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 (2) Hemiparesis affecting right side as late effect of cerebrovascular accident (CVA) ICD Code: I69.351 Status: Chronic (3) Shortness of breath ICD Code: R06.02 Status: Resolved (4) Fever ICD Code: R50.9 Status: Resolved (5) Abdominal pain ICD Code: R10.9 Status: Resolved (6) Hypertensive emergency ICD Code: I10 Status: Resolved (7) Metabolic acidosis ICD Code: E87.2 Status: Resolved (8) UTI (urinary tract infection) ICD Code: N39.0 Status: Resolved (9) Vaginal discharge ICD Code: N89.8 Status: Resolved (10) Increased urinary frequency ICD Code: R35.0 Status: Resolved Assessment and Plan Left basal ganglia bleed with 4mm MLS with dense Right hemiparesis, stable. secondary to cocaine and uncontrolled hypertension. BP 118/79. Neurosurgery, Dr. Venegas has evaluated the patient. The bleed has been stable on repeat head CT. No surgery needed. Speech therapy indicated soft diet with thin liquids Occupational therapy indicates OT at rehabilitation. Patient will need to continue occupational therapy until discharge Physical therapy indicating PT at rehabilitation. Continue participation physical therapy, continue right AFO. Patient participating very infrequently with physical therapy. Norflex for muscle spasms Symptomatic UTI - UA suggestive of UTI, still complaining of dysuria but improving - Urine culture shows mixed gram-positive manasa - Continue with Macrobid 100mg BID Abdominal pain: Resolved Leukocytosis resolved CT scan did not indicate any abnormality SOB: Resolved. Chest x-ray without acute abnormality. Right arm pain: Controlled Continue Neurontin for right arm neuropathic pain Increased urinary frequency: Resolved BNP was performed, sodium level was normal. No signs of central DI Urinalysis was performed which did not indicate any signs of infection Hypertension: Controlled. Continue with Norvasc 10 mg daily Vasotec, clonidine as needed Hypokalemia: Resolved. Patient is on potassium replacement Monitor BMP as needed Alcohol and cocaine abuse dependence patient previously counseled. Status post thiamine Tobacco abuse Counseled on cessation Chronic hepatitis C, chronic Patient with chronic transaminitis continue to follow periodically. Repeat lab studies ordered. AST 174, ALT 301. Will continue to monitor. Liver ultrasound showed fatty infiltration Anxiety: Controlled Seroquel low-dose initiated on 05/27. Bowel regimen: Justyna-Colace, magnesium hydroxide as needed. DVT prophylaxis Sequential compression devices. Lovenox 40 mg sq daily. Discharge Planning Occupational therapy recommends shower bench, 3-1 bedside commode for discharge. PT recommends right AFO. CM working on placement. 01/10/17: [facility] to evaluate for placement. 01/12/17: [facility] to evaluate for placement Attending Statement Patient seen. Agree with above. Marjorie Vaughn Jan 18, 2017 13:50 Jaycob Bernal MD Jan 18, 2017 14:52
[2017-01-18 20:00] VITALS: BP 139/87; PULSE 84; RESP 22; TEMP 98.1; O2SAT 96
[2017-01-18] MEDS: QUEtiapine FUMARATE 25 MG TAB PO SCH (20:35)
[2017-01-19 08:00] VITALS: BP 134/89; PULSE 81; RESP 17; TEMP 97.2; O2SAT 96
[2017-01-19] MEDS: GABAPENTIN 100 MG CAP PO SCH ×3 (09:00→16:09)
[2017-01-19] MEDS: FAMOTIDINE 20 MG TAB PO SCH ×2 (09:17→20:39)
[2017-01-19] MEDS: POTASSIUM CHLORIDE 10 MEQ CONTROLLED RELEASE TAB PO SCH (09:17)
[2017-01-19] MEDS: NITROFURANTOIN MONOHYD MACROCR 100 MG CAP PO SCH (09:17)
[2017-01-19] MEDS: DOCUSATE SODIUM 50 MG/SENNA 8.6 MG TAB PO SCH ×2 (09:17→20:39)
[2017-01-19] MEDS: ENOXAPARIN SODIUM 40 MG/0.4 ML SYRINGE SQ SCH (11:07)
--- NOTE | 2017-01-19 11:15 | HHI.PR ---
Subjective Remarks Patient seen and examined today. Patient denies any new complaints. Patient is lying in bed wants to sleep. No change in clinical status. Objective Vitals Vital Signs Date Time Temp Pulse Resp B/P Pulse Ox O2 Delivery O2 Flow Rate FiO2 01/19/17 08:00 97.2 81 17 134/89 96 01/18/17 20:00 98.1 84 22 139/87 96 I/O 01/18/17 01/18/17 01/18/17 01/19/17 01/19/17 01/19/17 07:00 15:00 23:00 07:00 15:00 23:00 Intake Total 1070 ml 480 ml 480 ml Output Total 200 ml Balance 1070 ml 480 ml 280 ml Intake Oral 1070 ml 480 ml 480 ml Output Urine Total 200 ml # Voids 5 2 3 # Bowel Movements 1 0 0 Result Diagram: 01/15/1724 01/15/17823 Objective Remarks GENERAL: Well-developed, well-nourished, in no acute distress. alert and orientated HEENT: Head is normocephalic without any lesions or masses noted right facial droop. NECK: Trachea midline no deviation. CARDIAC: Regular rhythm, regular rate. S1/S2 are heard. No murmurs gallops or rubs. LUNGS: Clear to auscultation bilaterally. No wheeze, rhonchi or rales. No use of accessory muscles on inspiration or expiration. ABDOMEN: Soft, nontender. Nondistended. Bowel sounds heard in all 4 quadrants. No organomegaly or masses. Negative rebound, negative guarding EXTREMITIES: No edema, pulses are equal bilaterally. No cyanosis or clubbing NEUROLOGY: Mood and affect appear appropriate. Dense right hemiparesis which appears to be improving in the lower extremity. Patient is able to move her right hand second third and fourth digit. 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 Venegas has evaluated the patient. The bleed has been stable on repeat head CT. No surgery needed. Speech therapy has been following the patient continue on soft diet with thin liquids Occupational therapy indicates OT at rehabilitation. Patient will need to continue occupational therapy until discharge Physical therapy indicating PT at rehabilitation. We'll need to continue physical therapy, continue right AFO, Norflex for muscle spasm --trapeze assembly for bed to facilitate functioning --Consulted OT for wheelchair recommendations. Supplied recommendations to case management to provide wheelchair. 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 No signs of central DI Urinalysis was performed which indicated leukouria with sign of contamination Urine culture showed 50-100,000 colonies of mixed manasa patient started on Macrobid, will discontinue at this time Hypokalemia, controlled Patient continued on potassium supplementation Repeat lab work did indicate potassium level 3.8. Continue monitor as needed Hypertension, stable Norvasc 10 mg daily Vasotec, clonidine as needed Alcohol and cocaine abuse dependence patient previously counseled. Status post thiamine Tobacco abuse Counseled on cessation Chronic hepatitis C, chronic Patient with chronic transaminitis continue to follow monthly. liver ultrasound showed fatty infiltration Anxiety. Controlled Seroquel low-dose initiated on 05/27. Bowel regimen Justyna-Colace as needed DVT prophylaxis Sequential compression devices. Lovenox 40 mg daily. Discharge Planning Discharge planning per case management. Consult case management for wheelchair. Patient will likely be able to use wheelchair and be discharged prior to her being able to be discharged without the wheelchair and home. PT recommending AFO, OT recommending 31 bedside commode, both of which recommended patient go to rehabilitation. Attending Statement Patient seen. Agree with above. Jaycob Rebolledo Jan 19, 2017 11:15 Jaycob Bernal MD Jan 19, 2017 16:37
[2017-01-19 20:00] VITALS: BP 123/78; PULSE 88; RESP 20; TEMP 98.1; O2SAT 94
[2017-01-19] MEDS: QUEtiapine FUMARATE 25 MG TAB PO SCH (20:39)
[2017-01-20 08:21] VITALS: BP 143/90; PULSE 81; RESP 18; TEMP 96.6; O2SAT 93
[2017-01-20] MEDS: DOCUSATE SODIUM 50 MG/SENNA 8.6 MG TAB PO SCH ×2 (09:53→20:06)
[2017-01-20] MEDS: GABAPENTIN 100 MG CAP PO SCH ×3 (09:53→17:00)
[2017-01-20] MEDS: FAMOTIDINE 20 MG TAB PO SCH ×2 (09:53→20:06)
[2017-01-20] MEDS: POTASSIUM CHLORIDE 10 MEQ CONTROLLED RELEASE TAB PO SCH (09:53)
[2017-01-20] MEDS: ENOXAPARIN SODIUM 40 MG/0.4 ML SYRINGE SQ SCH (14:21)
--- NOTE | 2017-01-20 14:49 | HHI.PR ---
Subjective Remarks Patient seen and examined today. Patient denies any new complaints. No change clinical status. Objective Vitals Vital Signs Date Time Temp Pulse Resp B/P Pulse Ox O2 Delivery O2 Flow Rate FiO2 01/20/17 08:21 96.6 81 18 143/90 93 01/19/17 20:00 98.1 88 20 123/78 94 I/O 01/19/17 01/19/17 01/19/17 01/20/17 01/20/17 01/20/17 07:00 15:00 23:00 07:00 15:00 23:00 Intake Total 480 ml 480 ml 480 ml Output Total 200 ml Balance 280 ml 480 ml 480 ml Intake Oral 480 ml 480 ml 480 ml Output Urine Total 200 ml # Voids 3 6 2 # Bowel Movements 0 0 Objective Remarks GENERAL: Well-developed, well-nourished, in no acute distress. alert and orientated HEENT: Head is normocephalic without any lesions or masses noted right facial droop. NECK: Trachea midline no deviation. CARDIAC: Regular rhythm, regular rate. S1/S2 are heard. No murmurs gallops or rubs. LUNGS: Clear to auscultation bilaterally. No wheeze, rhonchi or rales. No use of accessory muscles on inspiration or expiration. ABDOMEN: Soft, nontender. Nondistended. Bowel sounds heard in all 4 quadrants. No organomegaly or masses. Negative rebound, negative guarding EXTREMITIES: No edema, pulses are equal bilaterally. No cyanosis or clubbing NEUROLOGY: Mood and affect appear appropriate. Dense right hemiparesis which appears to be improving in the lower extremity. Patient is able to move her right hand second third and fourth digit. 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 Venegas has evaluated the patient. The bleed has been stable on repeat head CT. No surgery needed. Speech therapy has been following the patient continue on soft diet with thin liquids Occupational therapy indicates OT at rehabilitation. Patient will need to continue occupational therapy until discharge Physical therapy indicating PT at rehabilitation. We'll need to continue physical therapy, continue right AFO, Norflex for muscle spasm --trapeze assembly for bed to facilitate functioning --Consulted OT for wheelchair recommendations. Supplied recommendations to case management to provide wheelchair. 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 No signs of central DI Urinalysis was performed which indicated leukouria with sign of contamination Urine culture showed 50-100,000 colonies of mixed manasa patient started on Macrobid, will discontinue at this time Hypokalemia, controlled Patient continued on potassium supplementation Repeat lab work did indicate potassium level 3.8. Continue monitor as needed Hypertension, stable Norvasc 10 mg daily Vasotec, clonidine as needed Alcohol and cocaine abuse dependence patient previously counseled. Status post thiamine Tobacco abuse Counseled on cessation Chronic hepatitis C, chronic Patient with chronic transaminitis continue to follow monthly. liver ultrasound showed fatty infiltration Anxiety. Controlled Seroquel low-dose initiated on 05/27. Bowel regimen Justyna-Colace as needed DVT prophylaxis Sequential compression devices. Lovenox 40 mg daily. Discharge Planning Discharge planning per case management. Consult case management for wheelchair. Patient will likely be able to use wheelchair and be discharged prior to her being able to be discharged without the wheelchair and home. PT recommending AFO, OT recommending 31 bedside commode, both of which recommended patient go to rehabilitation. Jaycob Rebolledo Jan 20, 2017 14:49
[2017-01-20 20:00] VITALS: BP 133/92; PULSE 88; RESP 21; TEMP 97.5; O2SAT 97
[2017-01-20] MEDS: QUEtiapine FUMARATE 25 MG TAB PO SCH (20:06)
[2017-01-21] MEDS: FAMOTIDINE 20 MG TAB PO SCH ×2 (08:54→20:43)
[2017-01-21] MEDS: POTASSIUM CHLORIDE 10 MEQ CONTROLLED RELEASE TAB PO SCH (08:54)
[2017-01-21] MEDS: DOCUSATE SODIUM 50 MG/SENNA 8.6 MG TAB PO SCH ×2 (08:54→20:42)
[2017-01-21] MEDS: GABAPENTIN 100 MG CAP PO SCH ×3 (08:55→18:18)
[2017-01-21 10:39] VITALS: BP 121/90; PULSE 83; RESP 18; TEMP 96.5; O2SAT 94
--- NOTE | 2017-01-21 14:02 | HHI.PR ---
Subjective Remarks Patient seen and examined today. Patient denies any new complaints. No change clinical status. Objective Vitals Vital Signs Date Time Temp Pulse Resp B/P Pulse Ox O2 Delivery O2 Flow Rate FiO2 01/21/17 10:39 96.5 83 18 121/90 94 01/20/17 20:00 97.5 88 21 133/92 97 I/O 01/20/17 01/20/17 01/20/17 01/21/17 01/21/17 01/21/17 07:00 15:00 23:00 07:00 15:00 23:00 Intake Total 480 ml 1430 ml 360 ml Balance 480 ml 1430 ml 360 ml Intake Oral 480 ml 1430 ml 360 ml # Voids 2 7 4 # Bowel Movements 1 Objective Remarks GENERAL: Well-developed, well-nourished, in no acute distress. alert and orientated HEENT: Head is normocephalic without any lesions or masses noted right facial droop. NECK: Trachea midline no deviation. CARDIAC: Regular rhythm, regular rate. S1/S2 are heard. No murmurs gallops or rubs. LUNGS: Clear to auscultation bilaterally. No wheeze, rhonchi or rales. No use of accessory muscles on inspiration or expiration. ABDOMEN: Soft, nontender. Nondistended. Bowel sounds heard in all 4 quadrants. No organomegaly or masses. Negative rebound, negative guarding EXTREMITIES: No edema, pulses are equal bilaterally. No cyanosis or clubbing NEUROLOGY: Mood and affect appear appropriate. Dense right hemiparesis which appears to be improving in the lower extremity. Patient is able to move her right hand second third and fourth digit. 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 Venegas has evaluated the patient. The bleed has been stable on repeat head CT. No surgery needed. Speech therapy has been following the patient continue on soft diet with thin liquids Occupational therapy indicates OT at rehabilitation. Patient will need to continue occupational therapy until discharge Physical therapy indicating PT at rehabilitation. We'll need to continue physical therapy, continue right AFO, Norflex for muscle spasm --trapeze assembly for bed to facilitate functioning --Consulted OT for wheelchair recommendations. Supplied recommendations to case management to provide wheelchair. 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 No signs of central DI Urinalysis was performed which indicated leukouria with sign of contamination Urine culture showed 50-100,000 colonies of mixed manasa patient started on Macrobid, will discontinue at this time Hypokalemia, controlled Patient continued on potassium supplementation Continue monitor as needed Hypertension, stable Norvasc 10 mg daily Vasotec, clonidine as needed Alcohol and cocaine abuse dependence patient previously counseled. Status post thiamine Tobacco abuse Counseled on cessation Chronic hepatitis C, chronic Patient with chronic transaminitis continue to follow monthly. liver ultrasound showed fatty infiltration Anxiety. Controlled Seroquel low-dose initiated on 05/27. Bowel regimen Justyna-Colace as needed DVT prophylaxis Sequential compression devices. Lovenox 40 mg daily. Discharge Planning Discharge planning per case management. Consult case management for wheelchair. Patient will likely be able to use wheelchair and be discharged prior to her being able to be discharged without the wheelchair and home. PT recommending AFO, OT recommending 31 bedside commode, both of which recommended patient go to rehabilitation. Jaycob Rebolledo Jan 21, 2017 14:02
[2017-01-21] MEDS: ENOXAPARIN SODIUM 40 MG/0.4 ML SYRINGE SQ SCH (14:54)
[2017-01-21 20:00] VITALS: BP 119/82; PULSE 89; RESP 22; TEMP 97.6; O2SAT 96
[2017-01-21] MEDS: ORPHENADRINE CITRATE 100 MG SUSTAINED RELEASE TAB PO PRN (20:42)
[2017-01-21] MEDS: QUEtiapine FUMARATE 25 MG TAB PO SCH (20:43)
[2017-01-22 08:00] VITALS: BP 126/72; PULSE 74; RESP 18; TEMP 96.7; O2SAT 97
[2017-01-22] MEDS: FAMOTIDINE 20 MG TAB PO SCH ×2 (08:33→20:39)
[2017-01-22] MEDS: POTASSIUM CHLORIDE 10 MEQ CONTROLLED RELEASE TAB PO SCH (08:33)
[2017-01-22] MEDS: DOCUSATE SODIUM 50 MG/SENNA 8.6 MG TAB PO SCH ×2 (08:33→20:38)
[2017-01-22] MEDS: GABAPENTIN 100 MG CAP PO SCH ×3 (08:33→17:35)
--- NOTE | 2017-01-22 11:40 | HHI.PR ---
Subjective Remarks Patient seen and examined today. Patient denies any new complaints. No change in clinical status. Objective Vitals Vital Signs Date Time Temp Pulse Resp B/P Pulse Ox O2 Delivery O2 Flow Rate FiO2 01/22/17 08:00 96.7 74 18 126/72 97 01/21/17 20:00 97.6 89 22 119/82 96 I/O 01/21/17 01/21/17 01/21/17 01/22/17 01/22/17 01/22/17 07:00 15:00 23:00 07:00 15:00 23:00 Intake Total 360 ml 960 ml 360 ml 480 ml Balance 360 ml 960 ml 360 ml 480 ml Intake Oral 360 ml 960 ml 360 ml 480 ml # Voids 4 4 2 3 # Bowel Movements 1 Objective Remarks GENERAL: Well-developed, well-nourished, in no acute distress. alert and orientated HEENT: Head is normocephalic without any lesions or masses noted right facial droop. NECK: Trachea midline no deviation. CARDIAC: Regular rhythm, regular rate. S1/S2 are heard. No murmurs gallops or rubs. LUNGS: Clear to auscultation bilaterally. No wheeze, rhonchi or rales. No use of accessory muscles on inspiration or expiration. ABDOMEN: Soft, nontender. Nondistended. Bowel sounds heard in all 4 quadrants. No organomegaly or masses. Negative rebound, negative guarding EXTREMITIES: No edema, pulses are equal bilaterally. No cyanosis or clubbing NEUROLOGY: Mood and affect appear appropriate. Dense right hemiparesis which appears to be improving in the lower extremity. Patient is able to move her right hand second third and fourth digit. 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 Venegas has evaluated the patient. The bleed has been stable on repeat head CT. No surgery needed. Speech therapy has been following the patient continue on soft diet with thin liquids Occupational therapy indicates OT at rehabilitation. Patient will need to continue occupational therapy until discharge Physical therapy indicating PT at rehabilitation. We'll need to continue physical therapy, continue right AFO, Norflex for muscle spasm --trapeze assembly for bed to facilitate functioning --Consulted OT for wheelchair recommendations. Supplied recommendations to case management to provide wheelchair. 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 No signs of central DI Urinalysis was performed which indicated leukouria with sign of contamination Urine culture showed 50-100,000 colonies of mixed manasa Hypokalemia, controlled Patient continued on potassium supplementation Continue monitor as needed Hypertension, stable Norvasc 10 mg daily Vasotec, clonidine as needed Alcohol and cocaine abuse dependence patient previously counseled. Status post thiamine Tobacco abuse Counseled on cessation Chronic hepatitis C, chronic Patient with chronic transaminitis continue to follow monthly. liver ultrasound showed fatty infiltration Anxiety. Controlled Seroquel low-dose initiated on 05/27. Bowel regimen Justyna-Colace as needed DVT prophylaxis Sequential compression devices. Lovenox 40 mg daily. Discharge Planning Discharge planning per case management. Consult case management for wheelchair. Patient will likely be able to use wheelchair and be discharged prior to her being able to be discharged without the wheelchair and home. PT recommending AFO, OT recommending 31 bedside commode, both of which recommended patient go to rehabilitation. Jaycob Rebolledo Jan 22, 2017 11:40
[2017-01-22] MEDS: ENOXAPARIN SODIUM 40 MG/0.4 ML SYRINGE SQ SCH (13:07)
[2017-01-22 20:00] VITALS: BP 123/84; PULSE 91; RESP 20; TEMP 97.8; O2SAT 97
[2017-01-22] MEDS: QUEtiapine FUMARATE 25 MG TAB PO SCH (20:39)
[2017-01-23 08:00] VITALS: BP 141/91; PULSE 84; RESP 18; TEMP 97.1; O2SAT 96
[2017-01-23] MEDS: GABAPENTIN 100 MG CAP PO SCH ×3 (08:54→17:10)
[2017-01-23] MEDS: POTASSIUM CHLORIDE 10 MEQ CONTROLLED RELEASE TAB PO SCH (08:54)
[2017-01-23] MEDS: FAMOTIDINE 20 MG TAB PO SCH ×2 (08:54→20:59)
[2017-01-23] MEDS: DOCUSATE SODIUM 50 MG/SENNA 8.6 MG TAB PO SCH ×2 (08:54→21:00)
--- NOTE | 2017-01-23 11:42 | HHI.PR ---
Subjective Remarks Patient seen and examined today. No new complaints. Tolerating eating, positive bowel movements. Vitals stable. Afebrile. Patient is ready to leave. Motivated to continue with physical therapy and getting her right arm to move. Objective Vitals Vital Signs Date Time Temp Pulse Resp B/P Pulse Ox O2 Delivery O2 Flow Rate FiO2 01/23/17 08:00 97.1 84 18 141/91 96 01/22/17 20:00 97.8 91 20 123/84 97 I/O 01/22/17 01/22/17 01/22/17 01/23/17 01/23/17 01/23/17 07:00 15:00 23:00 07:00 15:00 23:00 Intake Total 480 ml 360 ml 480 ml 600 ml Balance 480 ml 360 ml 480 ml 600 ml Intake Oral 480 ml 360 ml 480 ml 600 ml # Voids 3 2 2 3 # Bowel Movements 1 0 0 Objective Remarks GENERAL: Well-developed, well-nourished, in no acute distress. alert and orientated HEENT: Head is normocephalic without any lesions or masses noted right facial droop. NECK: Trachea midline no deviation. CARDIAC: Regular rhythm, regular rate. S1/S2 are heard. No murmurs gallops or rubs. LUNGS: Clear to auscultation bilaterally. No wheeze, rhonchi or rales. No use of accessory muscles on inspiration or expiration. ABDOMEN: Soft, nontender. Nondistended. Bowel sounds heard in all 4 quadrants. No organomegaly or masses. Negative rebound, negative guarding EXTREMITIES: No edema, pulses are equal bilaterally. No cyanosis or clubbing NEUROLOGY: Mood and affect appear appropriate. Dense right hemiparesis which appears to be improving in the lower extremity. Patient is able to move her right hand second third and fourth digit. 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 Venegas has evaluated the patient. The bleed has been stable on repeat head CT. No surgery needed. Speech therapy has been following the patient continue on soft diet with thin liquids Occupational therapy indicates OT at rehabilitation. Patient will need to continue occupational therapy until discharge Physical therapy indicating PT at rehabilitation. We'll need to continue physical therapy, continue right AFO, Norflex for muscle spasm --trapeze assembly for bed to facilitate functioning --Consulted OT for wheelchair recommendations. Supplied recommendations to case management to provide wheelchair. 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 No signs of central DI Urinalysis was performed which indicated leukouria with sign of contamination Urine culture showed 50-100,000 colonies of mixed manasa Hypokalemia, controlled Patient continued on potassium supplementation Continue monitor as needed Hypertension, stable Norvasc 10 mg daily Vasotec, clonidine as needed Alcohol and cocaine abuse dependence patient previously counseled. Status post thiamine Tobacco abuse Counseled on cessation Chronic hepatitis C, chronic Patient with chronic transaminitis continue to follow monthly. liver ultrasound showed fatty infiltration Anxiety. Controlled Seroquel low-dose initiated on 05/27. Bowel regimen Justyna-Colace as needed DVT prophylaxis Sequential compression devices. Lovenox 40 mg daily. Discharge Planning Discharge planning per case management. Consult case management for wheelchair. Patient will likely be able to use wheelchair and be discharged prior to her being able to be discharged without the wheelchair and home. PT recommending AFO, OT recommending 31 bedside commode, both of which recommended patient go to rehabilitation. Jaycob Rebolledo Jan 23, 2017 11:42
[2017-01-23] MEDS: ENOXAPARIN SODIUM 40 MG/0.4 ML SYRINGE SQ SCH (12:49)
[2017-01-23 20:00] VITALS: BP 137/94; PULSE 86; RESP 20; TEMP 96.9; O2SAT 96
[2017-01-23] MEDS: QUEtiapine FUMARATE 25 MG TAB PO SCH (20:59)
[2017-01-24 08:00] VITALS: BP 117/82; PULSE 79; RESP 20; TEMP 96.8; O2SAT 98
[2017-01-24] MEDS: POTASSIUM CHLORIDE 10 MEQ CONTROLLED RELEASE TAB PO SCH (08:22)
[2017-01-24] MEDS: FAMOTIDINE 20 MG TAB PO SCH ×2 (08:22→20:30)
[2017-01-24] MEDS: GABAPENTIN 100 MG CAP PO SCH ×3 (08:22→18:42)
[2017-01-24] MEDS: DOCUSATE SODIUM 50 MG/SENNA 8.6 MG TAB PO SCH ×2 (08:22→20:30)
--- NOTE | 2017-01-24 09:11 | HHI.PR ---
Subjective Remarks Patient seen and examined today. Patient denies any new complaints no change in clinical status. Objective Vitals Vital Signs Date Time Temp Pulse Resp B/P Pulse Ox O2 Delivery O2 Flow Rate FiO2 01/23/17 20:00 96.9 86 20 137/94 96 I/O 01/23/17 01/23/17 01/23/17 01/24/17 01/24/17 01/24/17 07:00 15:00 23:00 07:00 15:00 23:00 Intake Total 600 ml 420 ml 620 ml 480 ml Balance 600 ml 420 ml 620 ml 480 ml Intake Oral 600 ml 420 ml 620 ml 480 ml # Voids 3 3 2 3 # Bowel Movements 0 0 0 0 Objective Remarks GENERAL: Well-developed, well-nourished, in no acute distress. alert and orientated HEENT: Head is normocephalic without any lesions or masses noted right facial droop. NECK: Trachea midline no deviation. CARDIAC: Regular rhythm, regular rate. S1/S2 are heard. No murmurs gallops or rubs. LUNGS: Clear to auscultation bilaterally. No wheeze, rhonchi or rales. No use of accessory muscles on inspiration or expiration. ABDOMEN: Soft, nontender. Nondistended. Bowel sounds heard in all 4 quadrants. No organomegaly or masses. Negative rebound, negative guarding EXTREMITIES: No edema, pulses are equal bilaterally. No cyanosis or clubbing NEUROLOGY: Mood and affect appear appropriate. Dense right hemiparesis which appears to be improving in the lower extremity. Patient is able to move her right hand second third and fourth digit. 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 Venegas has evaluated the patient. The bleed has been stable on repeat head CT. No surgery needed. Speech therapy has been following the patient continue on soft diet with thin liquids Occupational therapy indicates OT at rehabilitation. Patient will need to continue occupational therapy until discharge Physical therapy indicating PT at rehabilitation. We'll need to continue physical therapy, continue right AFO, Norflex for muscle spasm --trapeze assembly for bed to facilitate functioning --Consulted OT for wheelchair recommendations. Supplied recommendations to case management to provide wheelchair. 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 No signs of central DI Urinalysis was performed which indicated leukouria with sign of contamination Urine culture showed 50-100,000 colonies of mixed manasa Hypokalemia, controlled Patient continued on potassium supplementation Continue monitor as needed Hypertension, stable Norvasc 10 mg daily Vasotec, clonidine as needed Alcohol and cocaine abuse dependence patient previously counseled. Status post thiamine Tobacco abuse Counseled on cessation Chronic hepatitis C, chronic Patient with chronic transaminitis continue to follow monthly. liver ultrasound showed fatty infiltration Anxiety. Controlled Seroquel low-dose initiated on 05/27. Bowel regimen Justyna-Colace as needed DVT prophylaxis Sequential compression devices. Lovenox 40 mg daily. Patient is seen today, reviewed. No change in present treatment plan Discharge Planning Discharge planning per case management. Consult case management for wheelchair. Patient will likely be able to use wheelchair and be discharged prior to her being able to be discharged without the wheelchair and home. PT recommending AFO, OT recommending 31 bedside commode, both of which recommended patient go to rehabilitation. Jaycob Rebolledo Jan 24, 2017 09:10
[2017-01-24] MEDS: ENOXAPARIN SODIUM 40 MG/0.4 ML SYRINGE SQ SCH (15:46)
[2017-01-24 20:00] VITALS: BP 109/67; PULSE 93; RESP 20; TEMP 98.8; O2SAT 97
[2017-01-24] MEDS: QUEtiapine FUMARATE 25 MG TAB PO SCH (20:30)
[2017-01-25 08:00] VITALS: BP 125/89; PULSE 84; RESP 16; TEMP 98.3; O2SAT 96
[2017-01-25] MEDS: DOCUSATE SODIUM 50 MG/SENNA 8.6 MG TAB PO SCH ×2 (09:14→20:38)
[2017-01-25] MEDS: FAMOTIDINE 20 MG TAB PO SCH ×2 (09:14→20:38)
[2017-01-25] MEDS: GABAPENTIN 100 MG CAP PO SCH ×3 (09:14→17:26)
[2017-01-25] MEDS: POTASSIUM CHLORIDE 10 MEQ CONTROLLED RELEASE TAB PO SCH (09:14)
--- NOTE | 2017-01-25 12:44 | HHI.PR ---
Subjective Remarks No acute complaints. No change in clinical status. Objective Vitals Vital Signs Date Time Temp Pulse Resp B/P Pulse Ox O2 Delivery O2 Flow Rate FiO2 01/25/17 08:00 98.3 84 16 125/89 96 01/24/17 20:00 98.8 93 20 109/67 97 I/O 01/24/17 01/24/17 01/24/17 01/25/17 01/25/17 01/25/17 07:00 15:00 23:00 07:00 15:00 23:00 Intake Total 480 ml 1580 ml 360 ml 120 ml Balance 480 ml 1580 ml 360 ml 120 ml Intake Oral 480 ml 1580 ml 360 ml 120 ml # Voids 3 3 4 2 # Bowel Movements 0 0 0 Objective Remarks GENERAL: Thin patient in no apparent distress. CARDIOVASCULAR: Regular rate and rhythm. RESPIRATORY: RR normal. CTAB. GASTROINTESTINAL: Abdomen soft, nontender, non-distended. No hepatomegaly. NEUROLOGICAL: Awake and alert. PSYCHIATRIC: Insight and judgment normal. 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 (2) Hemiparesis affecting right side as late effect of cerebrovascular accident (CVA) ICD Code: I69.351 Status: Chronic (3) Shortness of breath ICD Code: R06.02 Status: Resolved (4) Fever ICD Code: R50.9 Status: Resolved (5) Abdominal pain ICD Code: R10.9 Status: Resolved (6) Hypertensive emergency ICD Code: I10 Status: Resolved (7) Metabolic acidosis ICD Code: E87.2 Status: Resolved (8) UTI (urinary tract infection) ICD Code: N39.0 Status: Resolved (9) Vaginal discharge ICD Code: N89.8 Status: Resolved (10) Increased urinary frequency ICD Code: R35.0 Status: Resolved Assessment and Plan 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 Venegas has evaluated the patient. The bleed has been stable on repeat head CT. No surgery needed. Speech therapy indicated soft diet with thin liquids Occupational therapy indicates OT at rehabilitation. Patient will need to continue occupational therapy until discharge Physical therapy indicating PT at rehabilitation. We'll need to continue physical therapy, continue right AFO. Norflex for muscle spasms Abdominal pain: Resolved Leukocytosis resolved CT scan did not indicate any abnormality SOB: Resolved. Chest x-ray without acute abnormality. 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 No signs of central DI Urinalysis was performed which did not indicate any signs of infection Continue Belladonna rectal suppository Hypertension: Norvasc 10 mg daily Vasotec, clonidine as needed Hypokalemia: Resolved. Patient is on potassium replacement Monitor BMP as needed Alcohol and cocaine abuse dependence patient previously counseled. Status post thiamine Tobacco abuse Counseled on cessation Chronic hepatitis C, chronic Patient with chronic transaminitis continue to follow periodically. 11/05 AST and ALT improved from prior LFTs. Liver ultrasound showed fatty infiltration Anxiety: Controlled Seroquel low-dose initiated on 05/27. Bowel regimen: Justyna-Colace, magnesium hydroxide as needed. DVT prophylaxis Sequential compression devices. Lovenox 40 mg sq daily. Discharge Planning Occupational therapy recommends shower bench, 3-1 bedside commode for discharge. PT recommends right AFO. CM working on placement. 01/21/17: [facility] still evaluating for placement. Elisabeth Church Jan 25, 2017 12:44
[2017-01-25] MEDS: ENOXAPARIN SODIUM 40 MG/0.4 ML SYRINGE SQ SCH (14:49)
[2017-01-25 20:00] VITALS: BP 142/91; PULSE 91; RESP 20; TEMP 98.1; O2SAT 99
[2017-01-25] MEDS: QUEtiapine FUMARATE 25 MG TAB PO SCH (20:38)
[2017-01-26 08:00] VITALS: BP 129/85; PULSE 81; RESP 20; TEMP 97; O2SAT 95
[2017-01-26] MEDS: POTASSIUM CHLORIDE 10 MEQ CONTROLLED RELEASE TAB PO SCH (08:47)
[2017-01-26] MEDS: GABAPENTIN 100 MG CAP PO SCH ×3 (08:47→18:41)
[2017-01-26] MEDS: DOCUSATE SODIUM 50 MG/SENNA 8.6 MG TAB PO SCH ×2 (08:47→22:33)
[2017-01-26] MEDS: FAMOTIDINE 20 MG TAB PO SCH ×2 (08:47→22:33)
--- NOTE | 2017-01-26 11:37 | HHI.PR ---
Subjective Remarks No acute complaints. No change in clinical status. Objective Vitals Vital Signs Date Time Temp Pulse Resp B/P Pulse Ox O2 Delivery O2 Flow Rate FiO2 01/25/17 20:00 98.1 91 20 142/91 99 I/O 01/25/17 01/25/17 01/25/17 01/26/17 01/26/17 01/26/17 07:00 15:00 23:00 07:00 15:00 23:00 Intake Total 120 ml 1410 ml 690 ml 360 ml Balance 120 ml 1410 ml 690 ml 360 ml Intake Oral 120 ml 1410 ml 690 ml 360 ml # Voids 2 2 3 3 # Bowel Movements 0 2 2 Objective Remarks GENERAL: Thin patient in no apparent distress. CARDIOVASCULAR: Regular rate and rhythm. RESPIRATORY: RR normal. CTAB. GASTROINTESTINAL: Abdomen soft, nontender, non-distended. No hepatomegaly. NEUROLOGICAL: Awake and alert. PSYCHIATRIC: Insight and judgment normal. 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 (2) Hemiparesis affecting right side as late effect of cerebrovascular accident (CVA) ICD Code: I69.351 Status: Chronic (3) Shortness of breath ICD Code: R06.02 Status: Resolved (4) Fever ICD Code: R50.9 Status: Resolved (5) Abdominal pain ICD Code: R10.9 Status: Resolved (6) Hypertensive emergency ICD Code: I10 Status: Resolved (7) Metabolic acidosis ICD Code: E87.2 Status: Resolved (8) UTI (urinary tract infection) ICD Code: N39.0 Status: Resolved (9) Vaginal discharge ICD Code: N89.8 Status: Resolved (10) Increased urinary frequency ICD Code: R35.0 Status: Resolved Assessment and Plan 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 Venegas has evaluated the patient. The bleed has been stable on repeat head CT. No surgery needed. Speech therapy indicated soft diet with thin liquids Occupational therapy indicates OT at rehabilitation. Patient will need to continue occupational therapy until discharge Physical therapy indicating PT at rehabilitation. We'll need to continue physical therapy, continue right AFO. Norflex for muscle spasms Abdominal pain: Resolved Leukocytosis resolved CT scan did not indicate any abnormality SOB: Resolved. Chest x-ray without acute abnormality. 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 No signs of central DI Urinalysis was performed which did not indicate any signs of infection Continue Belladonna rectal suppository Hypertension: Norvasc 10 mg daily Vasotec, clonidine as needed Hypokalemia: Resolved. Patient is on potassium replacement Monitor BMP as needed Alcohol and cocaine abuse dependence patient previously counseled. Status post thiamine Tobacco abuse Counseled on cessation Chronic hepatitis C, chronic Patient with chronic transaminitis continue to follow periodically. 11/05 AST and ALT improved from prior LFTs. Liver ultrasound showed fatty infiltration Anxiety: Controlled Seroquel low-dose initiated on 05/27. Bowel regimen: Justyna-Colace, magnesium hydroxide as needed. DVT prophylaxis Sequential compression devices. Lovenox 40 mg sq daily. Discharge Planning Occupational therapy recommends shower bench, 3-1 bedside commode for discharge. PT recommends right AFO. CM working on placement. 01/21/17: [facility] still evaluating for placement. Elisabeth Church Jan 26, 2017 11:37
[2017-01-26] MEDS: ENOXAPARIN SODIUM 40 MG/0.4 ML SYRINGE SQ SCH (15:37)
[2017-01-26 20:00] VITALS: BP 130/89; PULSE 90; RESP 20; TEMP 97; O2SAT 97
[2017-01-26] MEDS: QUEtiapine FUMARATE 25 MG TAB PO SCH (22:34)
[2017-01-27 08:00] VITALS: BP 110/86; PULSE 84; RESP 18; TEMP 97; O2SAT 94
[2017-01-27] MEDS: DOCUSATE SODIUM 50 MG/SENNA 8.6 MG TAB PO SCH ×2 (09:00→20:50)
[2017-01-27] MEDS: FAMOTIDINE 20 MG TAB PO SCH ×2 (09:04→20:50)
[2017-01-27] MEDS: POTASSIUM CHLORIDE 10 MEQ CONTROLLED RELEASE TAB PO SCH (09:04)
[2017-01-27] MEDS: GABAPENTIN 100 MG CAP PO SCH ×3 (09:04→16:13)
--- NOTE | 2017-01-27 09:40 | HHI.PR ---
Subjective Remarks No acute complaints. No change in clinical status. Objective Vitals Vital Signs Date Time Temp Pulse Resp B/P Pulse Ox O2 Delivery O2 Flow Rate FiO2 01/27/17 08:00 97.0 84 18 110/86 94 01/26/17 20:00 97.0 90 20 130/89 97 I/O 01/26/17 01/26/17 01/26/17 01/27/17 01/27/17 01/27/17 07:00 15:00 23:00 07:00 15:00 23:00 Intake Total 360 ml 1000 ml 360 ml 360 ml Balance 360 ml 1000 ml 360 ml 360 ml Intake Oral 360 ml 1000 ml 360 ml 360 ml IV Total 0 ml 0 ml # Voids 3 4 3 3 # Bowel Movements 2 0 Objective Remarks GENERAL: Thin patient in no apparent distress. CARDIOVASCULAR: Regular rate and rhythm. RESPIRATORY: RR normal. CTAB. GASTROINTESTINAL: Abdomen soft, nontender, non-distended. NEUROLOGICAL: Awake and alert. PSYCHIATRIC: Insight and judgment normal. 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 (2) Hemiparesis affecting right side as late effect of cerebrovascular accident (CVA) ICD Code: I69.351 Status: Chronic (3) Shortness of breath ICD Code: R06.02 Status: Resolved (4) Fever ICD Code: R50.9 Status: Resolved (5) Abdominal pain ICD Code: R10.9 Status: Resolved (6) Hypertensive emergency ICD Code: I10 Status: Resolved (7) Metabolic acidosis ICD Code: E87.2 Status: Resolved (8) UTI (urinary tract infection) ICD Code: N39.0 Status: Resolved (9) Vaginal discharge ICD Code: N89.8 Status: Resolved (10) Increased urinary frequency ICD Code: R35.0 Status: Resolved Assessment and Plan 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 Venegas has evaluated the patient. The bleed has been stable on repeat head CT. No surgery needed. Speech therapy indicated soft diet with thin liquids Occupational therapy indicates OT at rehabilitation. Patient will need to continue occupational therapy until discharge Physical therapy indicating PT at rehabilitation. We'll need to continue physical therapy, continue right AFO. Norflex for muscle spasms Abdominal pain: Resolved Leukocytosis resolved CT scan did not indicate any abnormality SOB: Resolved. Chest x-ray without acute abnormality. 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 No signs of central DI Urinalysis was performed which did not indicate any signs of infection Continue Belladonna rectal suppository Hypertension: Norvasc 10 mg daily Vasotec, clonidine as needed Hypokalemia: Resolved. Patient is on potassium replacement Monitor BMP as needed Alcohol and cocaine abuse dependence patient previously counseled. Status post thiamine Tobacco abuse Counseled on cessation Chronic hepatitis C, chronic Patient with chronic transaminitis continue to follow periodically. 11/05 AST and ALT improved from prior LFTs. Liver ultrasound showed fatty infiltration Anxiety: Controlled Seroquel low-dose initiated on 05/27. Bowel regimen: Justyna-Colace, magnesium hydroxide as needed. DVT prophylaxis Sequential compression devices. Lovenox 40 mg sq daily. Discharge Planning Occupational therapy recommends shower bench, 3-1 bedside commode for discharge. PT recommends right AFO. CM working on placement. 01/21/17: [facility] still evaluating for placement. Elisabeth Church Jan 27, 2017 09:40
[2017-01-27] MEDS: ENOXAPARIN SODIUM 40 MG/0.4 ML SYRINGE SQ SCH (11:43)
[2017-01-27 20:00] VITALS: BP 128/95; PULSE 88; RESP 18; TEMP 96.8; O2SAT 98
[2017-01-27] MEDS: ORPHENADRINE CITRATE 100 MG SUSTAINED RELEASE TAB PO PRN (20:50)
[2017-01-27] MEDS: QUEtiapine FUMARATE 25 MG TAB PO SCH (20:50)
[2017-01-28 08:00] VITALS: BP 137/89; PULSE 81; RESP 18; TEMP 98.4; O2SAT 95
[2017-01-28] MEDS: GABAPENTIN 100 MG CAP PO SCH ×3 (08:49→18:41)
[2017-01-28] MEDS: POTASSIUM CHLORIDE 10 MEQ CONTROLLED RELEASE TAB PO SCH (08:49)
[2017-01-28] MEDS: FAMOTIDINE 20 MG TAB PO SCH ×2 (08:50→20:54)
[2017-01-28] MEDS: DOCUSATE SODIUM 50 MG/SENNA 8.6 MG TAB PO SCH ×2 (08:50→20:54)
--- NOTE | 2017-01-28 10:42 | HHI.PR ---
Subjective Remarks No acute complaints. No change in clinical status. Objective Vitals Vital Signs Date Time Temp Pulse Resp B/P Pulse Ox O2 Delivery O2 Flow Rate FiO2 01/28/17 08:00 98.4 81 18 137/89 95 01/27/17 20:00 96.8 88 18 128/95 98 I/O 01/27/17 01/27/17 01/27/17 01/28/17 01/28/17 01/28/17 07:00 15:00 23:00 07:00 15:00 23:00 Intake Total 360 ml 480 ml 680 ml 480 ml Balance 360 ml 480 ml 680 ml 480 ml Intake Oral 360 ml 480 ml 680 ml 480 ml IV Total 0 ml # Voids 3 2 4 2 # Bowel Movements 0 0 Objective Remarks GENERAL: Thin patient in no apparent distress. CARDIOVASCULAR: Regular rate and rhythm. RESPIRATORY: RR normal. CTAB. GASTROINTESTINAL: Abdomen soft, nontender, non-distended. NEUROLOGICAL: Awake and alert. PSYCHIATRIC: Insight and judgment normal. 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 (2) Hemiparesis affecting right side as late effect of cerebrovascular accident (CVA) ICD Code: I69.351 Status: Chronic (3) Shortness of breath ICD Code: R06.02 Status: Resolved (4) Fever ICD Code: R50.9 Status: Resolved (5) Abdominal pain ICD Code: R10.9 Status: Resolved (6) Hypertensive emergency ICD Code: I10 Status: Resolved (7) Metabolic acidosis ICD Code: E87.2 Status: Resolved (8) UTI (urinary tract infection) ICD Code: N39.0 Status: Resolved (9) Vaginal discharge ICD Code: N89.8 Status: Resolved (10) Increased urinary frequency ICD Code: R35.0 Status: Resolved Assessment and Plan Left basal ganglia bleed with 4mm MLS with dense Right hemiparesis, stable secondary to cocaine and uncontrolled hypertension Neurosurgery, Dr. Venegas has evaluated the patient. The bleed has been stable on repeat head CT. No surgery needed. Speech therapy indicated soft diet with thin liquids Occupational therapy indicates OT at rehabilitation. Patient will need to continue occupational therapy until discharge Physical therapy indicating PT at rehabilitation. We'll need to continue physical therapy, continue right AFO. Norflex for muscle spasms Abdominal pain: Resolved Leukocytosis resolved CT scan did not indicate any abnormality SOB: Resolved. Chest x-ray without acute abnormality. 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 No signs of central DI Urinalysis was performed which did not indicate any signs of infection Continue Belladonna rectal suppository Hypertension: Norvasc 10 mg daily Vasotec, clonidine as needed Hypokalemia: Resolved. Patient is on potassium replacement Monitor BMP as needed Alcohol and cocaine abuse dependence patient previously counseled. Status post thiamine Tobacco abuse Counseled on cessation Chronic hepatitis C, chronic Patient with chronic transaminitis continue to follow periodically. 11/05 AST and ALT improved from prior LFTs. Liver ultrasound showed fatty infiltration Anxiety: Controlled Seroquel low-dose initiated on 05/27. Bowel regimen: Justyna-Colace, magnesium hydroxide as needed. DVT prophylaxis Sequential compression devices. Lovenox 40 mg sq daily. Discharge Planning Occupational therapy recommends shower bench, 3-1 bedside commode for discharge. PT recommends right AFO. CM working on placement. 01/21/17: [facility] still evaluating for placement. Elisabeth Church Jan 28, 2017 10:42
[2017-01-28] MEDS: ENOXAPARIN SODIUM 40 MG/0.4 ML SYRINGE SQ SCH (15:43)
[2017-01-28 20:00] VITALS: BP 121/75; PULSE 87; RESP 20; TEMP 97.6; O2SAT 95
[2017-01-28] MEDS: ORPHENADRINE CITRATE 100 MG SUSTAINED RELEASE TAB PO PRN (20:54)
[2017-01-28] MEDS: QUEtiapine FUMARATE 25 MG TAB PO SCH (20:54)
[2017-01-29 08:00] VITALS: BP 126/82; PULSE 80; RESP 18; TEMP 97.5; O2SAT 95
[2017-01-29] MEDS: DOCUSATE SODIUM 50 MG/SENNA 8.6 MG TAB PO SCH ×2 (09:00→21:01)
[2017-01-29] MEDS: GABAPENTIN 100 MG CAP PO SCH ×3 (09:43→18:13)
[2017-01-29] MEDS: POTASSIUM CHLORIDE 10 MEQ CONTROLLED RELEASE TAB PO SCH (09:43)
[2017-01-29] MEDS: FAMOTIDINE 20 MG TAB PO SCH ×2 (09:43→21:00)
--- NOTE | 2017-01-29 12:21 | HHI.PR ---
Subjective Remarks No acute complaints. No change in clinical status. Objective Vitals Vital Signs Date Time Temp Pulse Resp B/P Pulse Ox O2 Delivery O2 Flow Rate FiO2 01/29/17 08:00 97.5 80 18 126/82 95 01/28/17 20:00 97.6 87 20 121/75 95 I/O 01/28/17 01/28/17 01/28/17 01/29/17 01/29/17 01/29/17 07:00 15:00 23:00 07:00 15:00 23:00 Intake Total 480 ml 240 ml 480 ml 480 ml Balance 480 ml 240 ml 480 ml 480 ml Intake Oral 480 ml 240 ml 480 ml 480 ml # Voids 2 1 2 1 # Bowel Movements 0 0 0 Objective Remarks GENERAL: Thin patient in no apparent distress. CARDIOVASCULAR: Regular rate and rhythm. RESPIRATORY: RR normal. CTAB. GASTROINTESTINAL: Abdomen soft, nontender, non-distended. NEUROLOGICAL: Awake and alert. PSYCHIATRIC: Insight and judgment normal. 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 (2) Hemiparesis affecting right side as late effect of cerebrovascular accident (CVA) ICD Code: I69.351 Status: Chronic (3) Shortness of breath ICD Code: R06.02 Status: Resolved (4) Fever ICD Code: R50.9 Status: Resolved (5) Abdominal pain ICD Code: R10.9 Status: Resolved (6) Hypertensive emergency ICD Code: I10 Status: Resolved (7) Metabolic acidosis ICD Code: E87.2 Status: Resolved (8) UTI (urinary tract infection) ICD Code: N39.0 Status: Resolved (9) Vaginal discharge ICD Code: N89.8 Status: Resolved (10) Increased urinary frequency ICD Code: R35.0 Status: Resolved Assessment and Plan Left basal ganglia bleed with 4mm MLS with dense Right hemiparesis, stable secondary to cocaine and uncontrolled hypertension Neurosurgery, Dr. Venegas has evaluated the patient. The bleed has been stable on repeat head CT. No surgery needed. Speech therapy indicated soft diet with thin liquids Occupational therapy indicates OT at rehabilitation. Patient will need to continue occupational therapy until discharge Physical therapy indicating PT at rehabilitation. We'll need to continue physical therapy, continue right AFO. Norflex for muscle spasms Abdominal pain: Resolved Leukocytosis resolved CT scan did not indicate any abnormality SOB: Resolved. Chest x-ray without acute abnormality. 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 No signs of central DI Urinalysis was performed which did not indicate any signs of infection Continue Belladonna rectal suppository Hypertension: Norvasc 10 mg daily Vasotec, clonidine as needed Hypokalemia: Resolved. Patient is on potassium replacement Monitor BMP as needed Alcohol and cocaine abuse dependence patient previously counseled. Status post thiamine Tobacco abuse Counseled on cessation Chronic hepatitis C, chronic Patient with chronic transaminitis continue to follow periodically. 11/05 AST and ALT improved from prior LFTs. Liver ultrasound showed fatty infiltration Anxiety: Controlled Seroquel low-dose initiated on 05/27. Bowel regimen: Justyna-Colace, magnesium hydroxide as needed. DVT prophylaxis Sequential compression devices. Lovenox 40 mg sq daily. Discharge Planning Occupational therapy recommends shower bench, 3-1 bedside commode for discharge. PT recommends right AFO. CM working on placement. 01/21/17: [facility] still evaluating for placement. Elisabeth Church Jan 29, 2017 12:21
[2017-01-29] MEDS: ENOXAPARIN SODIUM 40 MG/0.4 ML SYRINGE SQ SCH (15:19)
[2017-01-29 20:00] VITALS: BP 127/86; PULSE 90; RESP 20; TEMP 98.7; O2SAT 97
[2017-01-29] MEDS: QUEtiapine FUMARATE 25 MG TAB PO SCH (21:00)
[2017-01-29] MEDS: ORPHENADRINE CITRATE 100 MG SUSTAINED RELEASE TAB PO PRN (21:00)
[2017-01-30 08:00] VITALS: BP 116/78; PULSE 82; RESP 20; TEMP 97.4; O2SAT 95
[2017-01-30] MEDS: POTASSIUM CHLORIDE 10 MEQ CONTROLLED RELEASE TAB PO SCH (09:25)
[2017-01-30] MEDS: GABAPENTIN 100 MG CAP PO SCH ×3 (09:26→18:15)
[2017-01-30] MEDS: DOCUSATE SODIUM 50 MG/SENNA 8.6 MG TAB PO SCH ×2 (09:26→20:38)
[2017-01-30] MEDS: FAMOTIDINE 20 MG TAB PO SCH ×2 (09:26→20:35)
--- NOTE | 2017-01-30 10:05 | HHI.PR ---
Subjective Remarks No acute complaints. No change in clinical status. Objective Vitals Vital Signs Date Time Temp Pulse Resp B/P Pulse Ox O2 Delivery O2 Flow Rate FiO2 01/30/17 08:00 97.4 82 20 116/78 95 01/29/17 20:00 98.7 90 20 127/86 97 I/O 01/29/17 01/29/17 01/29/17 01/30/17 01/30/17 01/30/17 07:00 15:00 23:00 07:00 15:00 23:00 Intake Total 480 ml 600 ml 240 ml 240 ml Balance 480 ml 600 ml 240 ml 240 ml Intake Oral 480 ml 600 ml 240 ml 240 ml # Voids 2 4 2 2 # Bowel Movements 0 1 Objective Remarks GENERAL: Thin patient in no apparent distress. CARDIOVASCULAR: Regular rate and rhythm. RESPIRATORY: RR normal. CTAB. GASTROINTESTINAL: Abdomen soft, nontender, non-distended. NEUROLOGICAL: Awake and alert. PSYCHIATRIC: Insight and judgment normal. 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 (2) Hemiparesis affecting right side as late effect of cerebrovascular accident (CVA) ICD Code: I69.351 Status: Chronic (3) Shortness of breath ICD Code: R06.02 Status: Resolved (4) Fever ICD Code: R50.9 Status: Resolved (5) Abdominal pain ICD Code: R10.9 Status: Resolved (6) Hypertensive emergency ICD Code: I10 Status: Resolved (7) Metabolic acidosis ICD Code: E87.2 Status: Resolved (8) UTI (urinary tract infection) ICD Code: N39.0 Status: Resolved (9) Vaginal discharge ICD Code: N89.8 Status: Resolved (10) Increased urinary frequency ICD Code: R35.0 Status: Resolved Assessment and Plan Left basal ganglia bleed with 4mm MLS with dense Right hemiparesis, stable secondary to cocaine and uncontrolled hypertension Neurosurgery, Dr. Venegas has evaluated the patient. The bleed has been stable on repeat head CT. No surgery needed. Speech therapy indicated soft diet with thin liquids Occupational therapy indicates OT at rehabilitation. Patient will need to continue occupational therapy until discharge Physical therapy indicating PT at rehabilitation. We'll need to continue physical therapy, continue right AFO. Norflex for muscle spasms Abdominal pain: Resolved Leukocytosis resolved CT scan did not indicate any abnormality SOB: Resolved. Chest x-ray without acute abnormality. 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 No signs of central DI Urinalysis was performed which did not indicate any signs of infection Continue Belladonna rectal suppository Hypertension: Norvasc 10 mg daily Vasotec, clonidine as needed Hypokalemia: Resolved. Patient is on potassium replacement Monitor BMP as needed Alcohol and cocaine abuse dependence patient previously counseled. Status post thiamine Tobacco abuse Counseled on cessation Chronic hepatitis C, chronic Patient with chronic transaminitis continue to follow periodically. 11/05 AST and ALT improved from prior LFTs. Liver ultrasound showed fatty infiltration Anxiety: Controlled Seroquel low-dose initiated on 05/27. Bowel regimen: Justyna-Colace, magnesium hydroxide as needed. DVT prophylaxis Sequential compression devices. Lovenox 40 mg sq daily. Discharge Planning Occupational therapy recommends shower bench, 3-1 bedside commode for discharge. PT recommends right AFO. CM working on placement. 01/21/17: [facility] still evaluating for placement. Elisabeth Church Jan 30, 2017 10:04
[2017-01-30] MEDS: ENOXAPARIN SODIUM 40 MG/0.4 ML SYRINGE SQ SCH (15:01)
[2017-01-30 20:00] VITALS: BP 130/88; PULSE 87; RESP 20; TEMP 96.9; O2SAT 97
[2017-01-30] MEDS: QUEtiapine FUMARATE 25 MG TAB PO SCH (20:36)
[2017-01-31 08:00] VITALS: BP 134/88; PULSE 85; RESP 17; TEMP 97.8; O2SAT 95
[2017-01-31] MEDS: GABAPENTIN 100 MG CAP PO SCH ×3 (09:48→18:41)
[2017-01-31] MEDS: FAMOTIDINE 20 MG TAB PO SCH ×2 (09:48→22:47)
[2017-01-31] MEDS: DOCUSATE SODIUM 50 MG/SENNA 8.6 MG TAB PO SCH ×2 (09:49→21:00)
[2017-01-31] MEDS: POTASSIUM CHLORIDE 10 MEQ CONTROLLED RELEASE TAB PO SCH (09:49)
--- NOTE | 2017-01-31 14:50 | HHI.PR ---
Subjective Remarks Patient seen and examined today. Patient denies any new complaints. No change in clinical status. Objective Vitals Vital Signs Date Time Temp Pulse Resp B/P Pulse Ox O2 Delivery O2 Flow Rate FiO2 01/31/17 08:00 97.8 85 17 134/88 95 01/30/17 20:00 96.9 87 20 130/88 97 I/O 01/30/17 01/30/17 01/30/17 01/31/17 01/31/17 01/31/17 07:00 15:00 23:00 07:00 15:00 23:00 Intake Total 240 ml 600 ml 480 ml 120 ml Balance 240 ml 600 ml 480 ml 120 ml Intake Oral 240 ml 600 ml 480 ml 120 ml # Voids 2 4 3 2 5 # Bowel Movements 0 1 Objective Remarks GENERAL: Well-developed, well-nourished, in no acute distress. alert and orientated HEENT: Head is normocephalic without any lesions or masses noted right facial droop. NECK: Trachea midline no deviation. CARDIAC: Regular rhythm, regular rate. S1/S2 are heard. No murmurs gallops or rubs. LUNGS: Clear to auscultation bilaterally. No wheeze, rhonchi or rales. No use of accessory muscles on inspiration or expiration. ABDOMEN: Soft, nontender. Nondistended. Bowel sounds heard in all 4 quadrants. No organomegaly or masses. Negative rebound, negative guarding EXTREMITIES: No edema, pulses are equal bilaterally. No cyanosis or clubbing NEUROLOGY: Mood and affect appear appropriate. Dense right hemiparesis which appears to be improving in the lower extremity. Patient is able to move her right hand second third and fourth digit. 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 Venegas has evaluated the patient. The bleed has been stable on repeat head CT. No surgery needed. Speech therapy has been following the patient continue on soft diet with thin liquids Occupational therapy indicates OT at rehabilitation. Patient will need to continue occupational therapy until discharge Physical therapy indicating PT at rehabilitation. We'll need to continue physical therapy, continue right AFO, Norflex for muscle spasm --trapeze assembly for bed to facilitate functioning --Consulted OT for wheelchair recommendations. Supplied recommendations to case management to provide wheelchair. 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 No signs of central DI Urinalysis was performed which indicated leukouria with sign of contamination Urine culture showed 50-100,000 colonies of mixed manasa Hypokalemia, controlled Patient continued on potassium supplementation Continue monitor as needed Hypertension, stable Norvasc 10 mg daily Vasotec, clonidine as needed Alcohol and cocaine abuse dependence patient previously counseled. Status post thiamine Tobacco abuse Counseled on cessation Chronic hepatitis C, chronic Patient with chronic transaminitis continue to follow monthly. liver ultrasound showed fatty infiltration Anxiety. Controlled Seroquel low-dose initiated on 05/27. Bowel regimen Justyna-Colace as needed DVT prophylaxis Sequential compression devices. Lovenox 40 mg daily. Patient is seen today, reviewed. No change in present treatment plan Discharge Planning Discharge planning per case management. Consult case management for wheelchair. Patient will likely be able to use wheelchair and be discharged prior to her being able to be discharged without the wheelchair and home. PT recommending AFO, OT recommending 31 bedside commode, both of which recommended patient go to rehabilitation. Jaycob Rebolledo Jan 31, 2017 14:50
[2017-01-31] MEDS: ENOXAPARIN SODIUM 40 MG/0.4 ML SYRINGE SQ SCH (16:06)
[2017-01-31 20:00] VITALS: BP 115/80; PULSE 89; RESP 20; TEMP 97.4; O2SAT 96
[2017-01-31] MEDS: QUEtiapine FUMARATE 25 MG TAB PO SCH (22:47)
[2017-02-01 08:00] VITALS: BP 136/85; PULSE 80; RESP 17; TEMP 98.5; O2SAT 95
[2017-02-01] MEDS: POTASSIUM CHLORIDE 10 MEQ CONTROLLED RELEASE TAB PO SCH (08:49)
[2017-02-01] MEDS: GABAPENTIN 100 MG CAP PO SCH ×3 (08:49→17:03)
[2017-02-01] MEDS: FAMOTIDINE 20 MG TAB PO SCH ×2 (08:49→20:50)
[2017-02-01] MEDS: DOCUSATE SODIUM 50 MG/SENNA 8.6 MG TAB PO SCH ×2 (08:50→20:51)
--- NOTE | 2017-02-01 10:14 | HHI.PR ---
Subjective Remarks Patient seen and examined today. Patient denies any new complaints. Patient waiting for her breakfast. No change in clinical status Objective Vitals Vital Signs Date Time Temp Pulse Resp B/P Pulse Ox O2 Delivery O2 Flow Rate FiO2 02/01/17 08:00 98.5 80 17 136/85 95 01/31/17 20:00 97.4 89 20 115/80 96 I/O 01/31/17 01/31/17 01/31/17 02/01/17 02/01/17 02/01/17 07:00 15:00 23:00 07:00 15:00 23:00 Intake Total 120 ml 120 ml Balance 120 ml 120 ml Intake Oral 120 ml 120 ml # Voids 2 5 5 # Bowel Movements 1 2 Objective Remarks GENERAL: Well-developed, well-nourished, in no acute distress. alert and orientated HEENT: Head is normocephalic without any lesions or masses noted right facial droop. NECK: Trachea midline no deviation. CARDIAC: Regular rhythm, regular rate. S1/S2 are heard. No murmurs gallops or rubs. LUNGS: Clear to auscultation bilaterally. No wheeze, rhonchi or rales. No use of accessory muscles on inspiration or expiration. ABDOMEN: Soft, nontender. Nondistended. Bowel sounds heard in all 4 quadrants. No organomegaly or masses. Negative rebound, negative guarding EXTREMITIES: No edema, pulses are equal bilaterally. No cyanosis or clubbing NEUROLOGY: Mood and affect appear appropriate. Dense right hemiparesis which appears to be improving in the lower extremity. Patient is able to move her right hand second third and fourth digit. 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 Venegas has evaluated the patient. The bleed has been stable on repeat head CT. No surgery needed. Speech therapy has been following the patient continue on soft diet with thin liquids Occupational therapy indicates OT at rehabilitation. Patient will need to continue occupational therapy until discharge Physical therapy indicating PT at rehabilitation. We'll need to continue physical therapy, continue right AFO, Norflex for muscle spasm --trapeze assembly for bed to facilitate functioning --Consulted OT for wheelchair recommendations. Supplied recommendations to case management to provide wheelchair. 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 No signs of central DI Urinalysis was performed which indicated leukouria with sign of contamination Urine culture showed 50-100,000 colonies of mixed manasa Hypokalemia, controlled Patient continued on potassium supplementation Continue monitor as needed Hypertension, stable Norvasc 10 mg daily Vasotec, clonidine as needed Alcohol and cocaine abuse dependence patient previously counseled. Status post thiamine Tobacco abuse Counseled on cessation Chronic hepatitis C, chronic Patient with chronic transaminitis continue to follow monthly. liver ultrasound showed fatty infiltration Anxiety. Controlled Seroquel low-dose initiated on 05/27. Bowel regimen Justyna-Colace as needed DVT prophylaxis Sequential compression devices. Lovenox 40 mg daily. Patient is seen today, reviewed. No change in present treatment plan Discharge Planning Discharge planning per case management. Consult case management for wheelchair. Patient will likely be able to use wheelchair and be discharged prior to her being able to be discharged without the wheelchair and home. PT recommending AFO, OT recommending 31 bedside commode, both of which recommended patient go to rehabilitation. Jaycob Rebolledo Feb 01, 2017 10:14
[2017-02-01] MEDS: ENOXAPARIN SODIUM 40 MG/0.4 ML SYRINGE SQ SCH (17:03)
[2017-02-01 20:00] VITALS: BP 133/80; PULSE 89; RESP 18; TEMP 97.6; O2SAT 91
[2017-02-01] MEDS: ORPHENADRINE CITRATE 100 MG SUSTAINED RELEASE TAB PO PRN (20:50)
[2017-02-01] MEDS: QUEtiapine FUMARATE 25 MG TAB PO SCH (20:50)
[2017-02-02] MEDS: FAMOTIDINE 20 MG TAB PO SCH ×2 (08:21→20:47)
[2017-02-02] MEDS: GABAPENTIN 100 MG CAP PO SCH ×3 (08:22→17:20)
[2017-02-02] MEDS: POTASSIUM CHLORIDE 10 MEQ CONTROLLED RELEASE TAB PO SCH (08:22)
[2017-02-02] MEDS: DOCUSATE SODIUM 50 MG/SENNA 8.6 MG TAB PO SCH ×2 (08:23→20:47)
[2017-02-02 08:36] VITALS: BP 119/78; PULSE 80; RESP 19; TEMP 97; O2SAT 95
--- NOTE | 2017-02-02 10:28 | HHI.PR ---
Subjective Remarks Patient seen and examined today. Patient has any new complaints. No change in clinical status. Objective Vitals Vital Signs Date Time Temp Pulse Resp B/P Pulse Ox O2 Delivery O2 Flow Rate FiO2 02/02/17 08:36 97.0 80 19 119/78 95 02/01/17 20:00 97.6 89 18 133/80 91 I/O 02/01/17 02/01/17 02/01/17 02/02/17 02/02/17 02/02/17 07:00 15:00 23:00 07:00 15:00 23:00 Intake Total 120 ml 620 ml Balance 120 ml 620 ml Intake Oral 120 ml 620 ml # Voids 5 5 4 # Bowel Movements 2 1 0 Objective Remarks GENERAL: Well-developed, well-nourished, in no acute distress. alert and orientated HEENT: Head is normocephalic without any lesions or masses noted right facial droop. NECK: Trachea midline no deviation. CARDIAC: Regular rhythm, regular rate. S1/S2 are heard. No murmurs gallops or rubs. LUNGS: Clear to auscultation bilaterally. No wheeze, rhonchi or rales. No use of accessory muscles on inspiration or expiration. ABDOMEN: Soft, nontender. Nondistended. Bowel sounds heard in all 4 quadrants. No organomegaly or masses. Negative rebound, negative guarding EXTREMITIES: No edema, pulses are equal bilaterally. No cyanosis or clubbing NEUROLOGY: Mood and affect appear appropriate. Dense right hemiparesis which appears to be improving in the lower extremity. Patient is able to move her right hand second third and fourth digit. 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 Venegas has evaluated the patient. The bleed has been stable on repeat head CT. No surgery needed. Speech therapy has been following the patient continue on soft diet with thin liquids Occupational therapy indicates OT at rehabilitation. Patient will need to continue occupational therapy until discharge Physical therapy indicating PT at rehabilitation. We'll need to continue physical therapy, continue right AFO, Norflex for muscle spasm --trapeze assembly for bed to facilitate functioning --Consulted OT for wheelchair recommendations. Supplied recommendations to case management to provide wheelchair. 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 No signs of central DI Urinalysis was performed which indicated leukouria with sign of contamination Urine culture showed 50-100,000 colonies of mixed manasa Hypokalemia, controlled Patient continued on potassium supplementation Continue monitor as needed Hypertension, stable Norvasc 10 mg daily Vasotec, clonidine as needed Alcohol and cocaine abuse dependence patient previously counseled. Status post thiamine Tobacco abuse Counseled on cessation Chronic hepatitis C, chronic Patient with chronic transaminitis continue to follow monthly. liver ultrasound showed fatty infiltration Anxiety. Controlled Seroquel low-dose initiated on 05/27. Bowel regimen Justyna-Colace as needed DVT prophylaxis Sequential compression devices. Lovenox 40 mg daily. Patient was seen today, records reviewed. No change in present treatment plan Discharge Planning Discharge planning per case management. Consult case management for wheelchair. Patient will likely be able to use wheelchair and be discharged prior to her being able to be discharged without the wheelchair and home. PT recommending AFO, OT recommending 31 bedside commode, both of which recommended patient go to rehabilitation. Jaycob Rebolledo Feb 02, 2017 10:28
[2017-02-02] MEDS: ENOXAPARIN SODIUM 40 MG/0.4 ML SYRINGE SQ SCH (16:35)
[2017-02-02 20:00] VITALS: BP 103/81; PULSE 98; RESP 20; TEMP 96.5; O2SAT 96
[2017-02-02] MEDS: ORPHENADRINE CITRATE 100 MG SUSTAINED RELEASE TAB PO PRN (20:47)
[2017-02-02] MEDS: QUEtiapine FUMARATE 25 MG TAB PO SCH ×2 (20:48→20:53)
[2017-02-02 20:50] VITALS: BP 131/86
[2017-02-03 08:00] VITALS: BP 121/84; PULSE 84; RESP 16; TEMP 98.2; O2SAT 97
[2017-02-03] MEDS: POTASSIUM CHLORIDE 10 MEQ CONTROLLED RELEASE TAB PO SCH (08:13)
[2017-02-03] MEDS: GABAPENTIN 100 MG CAP PO SCH ×3 (08:13→16:26)
[2017-02-03] MEDS: DOCUSATE SODIUM 50 MG/SENNA 8.6 MG TAB PO SCH ×2 (08:14→22:27)
[2017-02-03] MEDS: FAMOTIDINE 20 MG TAB PO SCH ×2 (08:14→22:27)
--- NOTE | 2017-02-03 15:22 | HHI.PR ---
Subjective Remarks Patient seen and examined today. Patient denies any new complaints. No change in clinical status. Patient frustrated that she can't use her right arm. Objective Vitals Vital Signs Date Time Temp Pulse Resp B/P Pulse Ox O2 Delivery O2 Flow Rate FiO2 02/03/17 08:00 98.2 84 16 121/84 97 02/02/17 20:50 131/86 02/02/17 20:00 96.5 98 20 103/81 96 I/O 02/02/17 02/02/17 02/02/17 02/03/17 02/03/17 02/03/17 07:00 15:00 23:00 07:00 15:00 23:00 Intake Total 620 ml 900 ml 0 ml 480 ml 1500 ml Balance 620 ml 900 ml 0 ml 480 ml 1500 ml Intake Oral 620 ml 900 ml 480 ml 1500 ml IV Total 0 ml 0 ml # Voids 4 3 2 6 # Bowel Movements 0 1 0 1 Objective Remarks GENERAL: Well-developed, well-nourished, in no acute distress. alert and orientated HEENT: Head is normocephalic without any lesions or masses noted right facial droop. NECK: Trachea midline no deviation. CARDIAC: Regular rhythm, regular rate. S1/S2 are heard. No murmurs gallops or rubs. LUNGS: Clear to auscultation bilaterally. No wheeze, rhonchi or rales. No use of accessory muscles on inspiration or expiration. ABDOMEN: Soft, nontender. Nondistended. Bowel sounds heard in all 4 quadrants. No organomegaly or masses. Negative rebound, negative guarding EXTREMITIES: No edema, pulses are equal bilaterally. No cyanosis or clubbing NEUROLOGY: Mood and affect appear appropriate. Dense right hemiparesis which appears to be improving in the lower extremity. Patient is able to move her right hand second third and fourth digit. 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 Venegas has evaluated the patient. The bleed has been stable on repeat head CT. No surgery needed. Speech therapy has been following the patient continue on soft diet with thin liquids Occupational therapy indicates OT at rehabilitation. Patient will need to continue occupational therapy until discharge Physical therapy indicating PT at rehabilitation. We'll need to continue physical therapy, continue right AFO, Norflex for muscle spasm --trapeze assembly for bed to facilitate functioning --Consulted OT for wheelchair recommendations. Supplied recommendations to case management to provide wheelchair. 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 No signs of central DI Urinalysis was performed which indicated leukouria with sign of contamination Urine culture showed 50-100,000 colonies of mixed manasa Hypokalemia, controlled Patient continued on potassium supplementation Continue monitor as needed Hypertension, stable Norvasc 10 mg daily Vasotec, clonidine as needed Alcohol and cocaine abuse dependence patient previously counseled. Status post thiamine Tobacco abuse Counseled on cessation Chronic hepatitis C, chronic Patient with chronic transaminitis continue to follow monthly. liver ultrasound showed fatty infiltration Anxiety. Controlled Seroquel low-dose initiated on 05/27. Bowel regimen Justyna-Colace as needed DVT prophylaxis Sequential compression devices. Lovenox 40 mg daily. Patient was seen today, records reviewed. No change in present treatment plan Discharge Planning Discharge planning per case management. Consult case management for wheelchair. Patient will likely be able to use wheelchair and be discharged prior to her being able to be discharged without the wheelchair and home. PT recommending AFO, OT recommending 31 bedside commode, both of which recommended patient go to rehabilitation. Jaycob Rebolledo Feb 03, 2017 15:22 Walter Gamboa MD Feb 04, 2017 17:28
[2017-02-03] MEDS: ENOXAPARIN SODIUM 40 MG/0.4 ML SYRINGE SQ SCH (16:30)
[2017-02-03 20:00] VITALS: BP 125/89; PULSE 87; RESP 18; TEMP 97.9; O2SAT 97
[2017-02-03] MEDS: QUEtiapine FUMARATE 25 MG TAB PO SCH (22:28)
[2017-02-04 08:12] VITALS: BP 104/75; PULSE 80; RESP 19; TEMP 96.9; O2SAT 96
--- NOTE | 2017-02-04 08:52 | HHI.PR ---
Subjective Remarks Patient seen and examined today. Patient denies any new complaints. No change clinical status. Objective Vitals Vital Signs Date Time Temp Pulse Resp B/P Pulse Ox O2 Delivery O2 Flow Rate FiO2 02/04/17 08:12 96.9 80 19 104/75 96 02/03/17 20:00 97.9 87 18 125/89 97 I/O 02/03/17 02/03/17 02/03/17 02/04/17 02/04/17 02/04/17 07:00 15:00 23:00 07:00 15:00 23:00 Intake Total 480 ml 1500 ml 840 ml Balance 480 ml 1500 ml 840 ml Intake Oral 480 ml 1500 ml 840 ml IV Total 0 ml # Voids 2 6 7 # Bowel Movements 0 1 0 Imaging Last Impressions Chest X-Ray 08/30/16 0000 Signed Impressions: Service Date/Time: Tuesday, August 30, 2016 09:59 - CONCLUSION: No acute cardiopulmonary disease. Jeremy Moseley MD Abdomen/Pelvis CT 08/29/16 0000 Signed Impressions: Service Date/Time: Monday, August 29, 2016 12:24 - CONCLUSION: 1. There are tiny obstructing stones in the left kidney and old healed fractures of the pelvic bones. 2. Mild right lung base atelectasis and/or infiltrate is seen a small hiatal hernia. Braden Murrieta MD Liver Ultrasound 05/11/16 0000 Signed Impressions: Service Date/Time: Wednesday, May 11, 2016 08:30 - CONCLUSION: 1. Liver is slightly echogenic which can be seen with fatty infiltration/hepatocellular dysfunction. 2. No evidence for cholelithiasis. Geremias Smith MD Head Magnetic Resonance Angiography 05/11/16 0000 Signed Impressions: Service Date/Time: Wednesday, May 11, 2016 16:21 - CONCLUSION: No acute [place] vascular abnormalities. Jeremy Toledo MD Brain MRI 05/11/16 0000 Signed Impressions: Service Date/Time: Wednesday, May 11, 2016 16:21 - CONCLUSION: 1. Focal acute intraparenchymal hemorrhage in the left thalamus measuring 2.8 cm most likely representing a focal hemorrhagic infarction. 2. Bilateral cortical atrophy and mild chronic white matter changes. 3. No enhancing mass occupying lesions are demonstrated. Estrada Vigil MD Abdomen X-Ray 05/11/16 0000 Signed Impressions: Service Date/Time: Wednesday, May 11, 2016 16:03 - CONCLUSION: No evidence of obstruction. No MRI incompatible foreign body is identified. Estrada Vigil MD Head CT 05/10/16 1431 Signed Impressions: Service Date/Time: Tuesday, May 10, 2016 15:07 - CONCLUSION: 1. 2.3 cm left thalamic hypertensive type hemorrhage with approximately 4 mm of thri-dw-biadu subfalcine shift. 2. Mild periventricular small vessel ischemic demyelination. 3. Results were called to Dr. Barboza at the time of this dictation. Nicholas Dove MD Objective Remarks GENERAL: Well-developed, well-nourished, in no acute distress. alert and orientated HEENT: Head is normocephalic without any lesions or masses noted right facial droop. NECK: Trachea midline no deviation. CARDIAC: Regular rhythm, regular rate. S1/S2 are heard. No murmurs gallops or rubs. LUNGS: Clear to auscultation bilaterally. No wheeze, rhonchi or rales. No use of accessory muscles on inspiration or expiration. ABDOMEN: Soft, nontender. Nondistended. Bowel sounds heard in all 4 quadrants. No organomegaly or masses. Negative rebound, negative guarding EXTREMITIES: No edema, pulses are equal bilaterally. No cyanosis or clubbing NEUROLOGY: Mood and affect appear appropriate. Dense right hemiparesis which appears to be improving in the lower extremity. Patient is able to move her right hand second third and fourth digit. 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 Venegas has evaluated the patient. The bleed has been stable on repeat head CT. No surgery needed. Speech therapy has been following the patient continue on soft diet with thin liquids Occupational therapy indicates OT at rehabilitation. Patient will need to continue occupational therapy until discharge Physical therapy indicating PT at rehabilitation. We'll need to continue physical therapy, continue right AFO, Norflex for muscle spasm --trapeze assembly for bed to facilitate functioning --Consulted OT for wheelchair recommendations. Supplied recommendations to case management to provide wheelchair. reconsulted case management to supply wheelchair Patient will likely be able to use a wheelchair and be discharged prior to ambulating out of the hospital or funding available for rehabilitation Right arm pain, controlled Continue Neurontin for right arm neuropathic pain Dysuria, urinary frequency, resolved BNP was performed, sodium level was normal. No signs of central DI Urinalysis was performed which indicated leukouria with sign of contamination Urine culture showed 50-100,000 colonies of mixed manasa Hypokalemia, controlled Patient continued on potassium supplementation Continue monitor as needed Hypertension, stable Norvasc 10 mg daily Vasotec, clonidine as needed Alcohol and cocaine abuse dependence patient previously counseled. Status post thiamine Tobacco abuse Counseled on cessation Chronic hepatitis C, chronic Patient with chronic transaminitis continue to follow monthly. liver ultrasound showed fatty infiltration Anxiety. Controlled Seroquel low-dose initiated on 05/27. Bowel regimen Justyna-Colace as needed DVT prophylaxis Sequential compression devices. Lovenox 40 mg daily. Patient was seen today, records reviewed. No change in present treatment plan Discharge Planning Discharge planning per case management. Consult case management for wheelchair. Patient will likely be able to use wheelchair and be discharged prior to her being able to be discharged without the wheelchair and home. PT recommending AFO, OT recommending 31 bedside commode, both of which recommended patient go to rehabilitation. Jaycob Rebolledo Feb 04, 2017 08:52 Walter Gamboa MD Feb 04, 2017 17:29
[2017-02-04 09:11] VITALS: BP 112/76; PULSE 79
[2017-02-04] MEDS: DOCUSATE SODIUM 50 MG/SENNA 8.6 MG TAB PO SCH ×2 (09:12→20:55)
[2017-02-04] MEDS: GABAPENTIN 100 MG CAP PO SCH ×3 (09:12→18:05)
[2017-02-04] MEDS: FAMOTIDINE 20 MG TAB PO SCH ×2 (09:12→20:55)
[2017-02-04] MEDS: POTASSIUM CHLORIDE 10 MEQ CONTROLLED RELEASE TAB PO SCH (09:12)
[2017-02-04] MEDS: ENOXAPARIN SODIUM 40 MG/0.4 ML SYRINGE SQ SCH (14:48)
[2017-02-04 20:00] VITALS: BP 142/89; PULSE 89; RESP 19; TEMP 99; O2SAT 97
[2017-02-04] MEDS: ORPHENADRINE CITRATE 100 MG SUSTAINED RELEASE TAB PO PRN (20:55)
[2017-02-04] MEDS: QUEtiapine FUMARATE 25 MG TAB PO SCH (20:55)
[2017-02-05 08:00] VITALS: BP 139/81; PULSE 83; RESP 18; TEMP 97.2; O2SAT 94
[2017-02-05] MEDS: POTASSIUM CHLORIDE 10 MEQ CONTROLLED RELEASE TAB PO SCH (09:19)
[2017-02-05] MEDS: GABAPENTIN 100 MG CAP PO SCH ×3 (09:19→17:07)
[2017-02-05] MEDS: DOCUSATE SODIUM 50 MG/SENNA 8.6 MG TAB PO SCH ×2 (09:19→22:06)
[2017-02-05] MEDS: FAMOTIDINE 20 MG TAB PO SCH ×2 (09:19→22:06)
[2017-02-05] MEDS: ENOXAPARIN SODIUM 40 MG/0.4 ML SYRINGE SQ SCH (11:57)
--- NOTE | 2017-02-05 12:21 | HHI.PR ---
Subjective Remarks Patient seen and examined today. Patient denies any new complaints. No change clinical status. Objective Vitals Vital Signs Date Time Temp Pulse Resp B/P Pulse Ox O2 Delivery O2 Flow Rate FiO2 02/05/17 08:00 97.2 83 18 139/81 94 02/04/17 20:00 99.0 89 19 142/89 97 I/O 02/04/17 02/04/17 02/04/17 02/05/17 02/05/17 02/05/17 07:00 15:00 23:00 07:00 15:00 23:00 Intake Total 840 ml 1310 ml 240 ml Balance 840 ml 1310 ml 240 ml Intake Oral 840 ml 1310 ml 240 ml # Voids 7 7 3 # Bowel Movements 0 2 Objective Remarks GENERAL: Well-developed, well-nourished, in no acute distress. alert and orientated HEENT: Head is normocephalic without any lesions or masses noted right facial droop. NECK: Trachea midline no deviation. CARDIAC: Regular rhythm, regular rate. S1/S2 are heard. No murmurs gallops or rubs. LUNGS: Clear to auscultation bilaterally. No wheeze, rhonchi or rales. No use of accessory muscles on inspiration or expiration. ABDOMEN: Soft, nontender. Nondistended. Bowel sounds heard in all 4 quadrants. No organomegaly or masses. Negative rebound, negative guarding EXTREMITIES: No edema, pulses are equal bilaterally. No cyanosis or clubbing NEUROLOGY: Mood and affect appear appropriate. Dense right hemiparesis which appears to be improving in the lower extremity. Patient is able to move her right hand second third and fourth digit. 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 Venegas has evaluated the patient. The bleed has been stable on repeat head CT. No surgery needed. Speech therapy has been following the patient continue on soft diet with thin liquids Occupational therapy indicates OT at rehabilitation. Patient will need to continue occupational therapy until discharge Physical therapy indicating PT at rehabilitation. We'll need to continue physical therapy, continue right AFO, Norflex for muscle spasm --trapeze assembly for bed to facilitate functioning --Consulted OT for wheelchair recommendations. Supplied recommendations to case management to provide wheelchair. reconsulted case management to supply wheelchair Patient will likely be able to use a wheelchair and be discharged prior to ambulating out of the hospital or funding available for rehabilitation Right arm pain, controlled Continue Neurontin for right arm neuropathic pain Dysuria, urinary frequency, resolved BNP was performed, sodium level was normal. No signs of central DI Urinalysis was performed which indicated leukouria with sign of contamination Urine culture showed 50-100,000 colonies of mixed manasa Hypokalemia, controlled Patient continued on potassium supplementation Continue monitor as needed Hypertension, stable Norvasc 10 mg daily Vasotec, clonidine as needed Alcohol and cocaine abuse dependence patient previously counseled. Status post thiamine Tobacco abuse Counseled on cessation Chronic hepatitis C, chronic Patient with chronic transaminitis continue to follow monthly. liver ultrasound showed fatty infiltration Anxiety. Controlled Seroquel low-dose initiated on 05/27. Bowel regimen Justyna-Colace as needed DVT prophylaxis Sequential compression devices. Lovenox 40 mg daily. Patient was seen today, records reviewed. No change in present treatment plan Discharge Planning Discharge planning per case management. Consult case management for wheelchair. Patient will likely be able to use wheelchair and be discharged prior to her being able to be discharged without the wheelchair and home. PT recommending AFO, OT recommending 31 bedside commode, both of which recommended patient go to rehabilitation. Jaycob Rebolledo Feb 05, 2017 12:21 Walter Gamboa MD Feb 05, 2017 14:17
[2017-02-05 20:00] VITALS: BP 117/72; PULSE 88; RESP 20; TEMP 95.8; O2SAT 94
[2017-02-05] MEDS: ORPHENADRINE CITRATE 100 MG SUSTAINED RELEASE TAB PO PRN (22:06)
[2017-02-05] MEDS: QUEtiapine FUMARATE 25 MG TAB PO SCH (22:07)
[2017-02-06 08:00] VITALS: BP 119/73; PULSE 77; RESP 18; TEMP 96.9; O2SAT 96
[2017-02-06] MEDS: POTASSIUM CHLORIDE 10 MEQ CONTROLLED RELEASE TAB PO SCH (08:46)
[2017-02-06] MEDS: FAMOTIDINE 20 MG TAB PO SCH ×2 (08:46→20:42)
[2017-02-06] MEDS: DOCUSATE SODIUM 50 MG/SENNA 8.6 MG TAB PO SCH ×2 (08:46→20:42)
[2017-02-06] MEDS: GABAPENTIN 100 MG CAP PO SCH ×3 (08:46→16:54)
--- NOTE | 2017-02-06 11:59 | HHI.PR ---
Subjective Remarks Patient sees examined today. Patient denies any new complaints. No change clinical status. Objective Vitals Vital Signs Date Time Temp Pulse Resp B/P Pulse Ox O2 Delivery O2 Flow Rate FiO2 02/06/17 08:00 96.9 77 18 119/73 96 02/05/17 20:00 95.8 88 20 117/72 94 I/O 02/05/17 02/05/17 02/05/17 02/06/17 02/06/17 02/06/17 07:00 15:00 23:00 07:00 15:00 23:00 Intake Total 240 ml 720 ml 720 ml 480 ml Balance 240 ml 720 ml 720 ml 480 ml Intake Oral 240 ml 720 ml 720 ml 480 ml IV Total 0 ml 0 ml # Voids 3 5 2 3 # Bowel Movements 0 0 0 Objective Remarks GENERAL: Well-developed, well-nourished, in no acute distress. alert and orientated HEENT: Head is normocephalic without any lesions or masses noted right facial droop. NECK: Trachea midline no deviation. CARDIAC: Regular rhythm, regular rate. S1/S2 are heard. No murmurs gallops or rubs. LUNGS: Clear to auscultation bilaterally. No wheeze, rhonchi or rales. No use of accessory muscles on inspiration or expiration. ABDOMEN: Soft, nontender. Nondistended. Bowel sounds heard in all 4 quadrants. No organomegaly or masses. Negative rebound, negative guarding EXTREMITIES: No edema, pulses are equal bilaterally. No cyanosis or clubbing NEUROLOGY: Mood and affect appear appropriate. Dense right hemiparesis which appears to be improving in the lower extremity. Patient is able to move her right hand second third and fourth digit. 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 Venegas has evaluated the patient. The bleed was stable on repeat head CT. No surgery needed. Speech therapy has signed off and indicates patient should be on a soft diet with thin liquids Occupational therapy indicates OT at rehabilitation. Patient will need to continue occupational therapy until discharge Physical therapy indicating PT at rehabilitation. We'll need to continue physical therapy, continue right AFO, Norflex for muscle spasm --trapeze assembly for bed to facilitate functioning --Consulted OT for wheelchair recommendations. Supplied recommendations to case management to provide wheelchair. reconsulted case management to supply wheelchair Patient will likely be able to use a wheelchair and be discharged prior to ambulating out of the hospital or funding available for rehabilitation Right arm pain, controlled Continue Neurontin for right arm neuropathic pain Dysuria, urinary frequency, resolved BNP was performed, sodium level was normal. No signs of central DI Urinalysis was performed which indicated leukouria with sign of contamination Urine culture showed 50-100,000 colonies of mixed manasa Hypokalemia, controlled Patient continued on potassium supplementation Continue monitor as needed Hypertension, stable Norvasc 10 mg daily Vasotec, clonidine as needed Alcohol and cocaine abuse dependence patient previously counseled. Status post thiamine Tobacco abuse Counseled on cessation Chronic hepatitis C, chronic Patient with chronic transaminitis continue to follow monthly. liver ultrasound showed fatty infiltration Anxiety. Controlled Seroquel low-dose initiated on 05/27. Bowel regimen Justyna-Colace as needed DVT prophylaxis Sequential compression devices. Lovenox 40 mg daily. Patient was seen today, records reviewed. No change in present treatment plan Discharge Planning Discharge planning per case management. Consult case management for wheelchair. Patient will likely be able to use wheelchair and be discharged prior to her being able to be discharged without the wheelchair and home. PT recommending AFO, OT recommending 31 bedside commode, both of which recommended patient go to rehabilitation. Jaycob Rebolledo Feb 06, 2017 11:59
[2017-02-06] MEDS: ENOXAPARIN SODIUM 40 MG/0.4 ML SYRINGE SQ SCH (16:55)
[2017-02-06 20:00] VITALS: BP 115/79; PULSE 87; RESP 20; TEMP 97.9; O2SAT 95
[2017-02-06] MEDS: QUEtiapine FUMARATE 25 MG TAB PO SCH (20:42)
[2017-02-07] MEDS: POTASSIUM CHLORIDE 10 MEQ CONTROLLED RELEASE TAB PO SCH (09:03)
[2017-02-07] MEDS: GABAPENTIN 100 MG CAP PO SCH ×3 (09:03→16:01)
[2017-02-07] MEDS: FAMOTIDINE 20 MG TAB PO SCH ×2 (09:03→19:57)
[2017-02-07] MEDS: DOCUSATE SODIUM 50 MG/SENNA 8.6 MG TAB PO SCH ×2 (09:03→19:57)
[2017-02-07 10:28] VITALS: BP 115/74; PULSE 81; RESP 18; TEMP 97.1; O2SAT 100
--- NOTE | 2017-02-07 10:55 | HHI.PR ---
Subjective Remarks Patient examined today in follow-up for CVA, right hemiplegia. Patient with no significant improvement. She presented just lays in bed all day long. Does not participate in physical therapy that well. Awaiting case management for discharge planning to skilled facility Objective Vitals Vital Signs Date Time Temp Pulse Resp B/P Pulse Ox O2 Delivery O2 Flow Rate FiO2 02/07/17 10:28 97.1 81 18 115/74 100 02/06/17 20:00 97.9 87 20 115/79 95 I/O 02/06/17 02/06/17 02/06/17 02/07/17 02/07/17 02/07/17 07:00 15:00 23:00 07:00 15:00 23:00 Intake Total 480 ml 360 ml 60 ml 120 ml Balance 480 ml 360 ml 60 ml 120 ml Intake Oral 480 ml 360 ml 60 ml 120 ml IV Total 0 ml 0 ml 0 ml # Voids 3 3 3 2 # Bowel Movements 0 0 0 0 Objective Remarks GENERAL: Well-developed, well-nourished, in no acute distress. alert and orientated HEENT: Head is normocephalic without any lesions or masses noted right facial droop. NECK: Trachea midline no deviation. CARDIAC: Regular rhythm, regular rate. S1/S2 are heard. No murmurs gallops or rubs. LUNGS: Clear to auscultation bilaterally. No wheeze, rhonchi or rales. No use of accessory muscles on inspiration or expiration. ABDOMEN: Soft, nontender. Nondistended. Bowel sounds heard in all 4 quadrants. No organomegaly or masses. Negative rebound, negative guarding EXTREMITIES: No edema, pulses are equal bilaterally. No cyanosis or clubbing NEUROLOGY: Mood and affect appear appropriate. Dense right hemiparesis which appears to be improving in the lower extremity. Patient is able to move her right hand second third and fourth digit. 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 Venegas has evaluated the patient. The bleed was stable on repeat head CT. No surgery needed. Speech therapy has signed off and indicates patient should be on a soft diet with thin liquids Occupational therapy indicates OT at rehabilitation. Patient will need to continue occupational therapy until discharge Physical therapy indicating PT at rehabilitation. We'll need to continue physical therapy, continue right AFO, Norflex for muscle spasm --trapeze assembly for bed to facilitate functioning --Consulted OT for wheelchair recommendations. Supplied recommendations to case management to provide wheelchair. reconsulted case management to supply wheelchair Patient will likely be able to use a wheelchair and be discharged prior to ambulating out of the hospital or funding available for rehabilitation Right arm pain, controlled Continue Neurontin for right arm neuropathic pain Dysuria, urinary frequency, resolved BNP was performed, sodium level was normal. No signs of central DI Urinalysis was performed which indicated leukouria with sign of contamination Urine culture showed 50-100,000 colonies of mixed manasa Hypokalemia, controlled Patient continued on potassium supplementation Continue monitor as needed Hypertension, stable Norvasc 10 mg daily Vasotec, clonidine as needed Alcohol and cocaine abuse dependence patient previously counseled. Status post thiamine Tobacco abuse Counseled on cessation Chronic hepatitis C, chronic Patient with chronic transaminitis continue to follow monthly. liver ultrasound showed fatty infiltration Anxiety. Controlled Seroquel low-dose initiated on 05/27. Bowel regimen Justyna-Colace as needed DVT prophylaxis Sequential compression devices. Lovenox 40 mg daily. Patient was seen today, records reviewed. No change in present treatment plan Discharge Planning Discharge planning per case management. Consult case management for wheelchair. Patient will likely be able to use wheelchair and be discharged prior to her being able to be discharged without the wheelchair and home. PT recommending AFO, OT recommending 31 bedside commode, both of which recommended patient go to rehabilitation. Jaycob Rebolledo Feb 07, 2017 10:55
[2017-02-07] MEDS: ENOXAPARIN SODIUM 40 MG/0.4 ML SYRINGE SQ SCH (16:01)
[2017-02-07] MEDS: QUEtiapine FUMARATE 25 MG TAB PO SCH (19:58)
[2017-02-07] MEDS: ORPHENADRINE CITRATE 100 MG SUSTAINED RELEASE TAB PO PRN (19:59)
[2017-02-07 20:00] VITALS: BP 115/83; PULSE 85; RESP 20; TEMP 98.4; O2SAT 94
[2017-02-08] MEDS: POTASSIUM CHLORIDE 10 MEQ CONTROLLED RELEASE TAB PO SCH (07:52)
[2017-02-08] MEDS: GABAPENTIN 100 MG CAP PO SCH ×3 (07:52→16:20)
[2017-02-08] MEDS: DOCUSATE SODIUM 50 MG/SENNA 8.6 MG TAB PO SCH ×2 (07:52→20:32)
[2017-02-08] MEDS: FAMOTIDINE 20 MG TAB PO SCH ×2 (07:52→20:32)
[2017-02-08 11:39] VITALS: BP 122/72; PULSE 88; RESP 18; TEMP 96.8; O2SAT 97
--- NOTE | 2017-02-08 15:35 | HHI.PR ---
Subjective Remarks Follow up for CVA. No acute complaints. No change in clinical status. Objective Vitals Vital Signs Date Time Temp Pulse Resp B/P Pulse Ox O2 Delivery O2 Flow Rate FiO2 02/08/17 11:39 96.8 88 18 122/72 97 02/07/17 20:00 98.4 85 20 115/83 94 I/O 02/07/17 02/07/17 02/07/17 02/08/17 02/08/17 02/08/17 07:00 15:00 23:00 07:00 15:00 23:00 Intake Total 120 ml 540 ml 0 ml 100 ml Output Total 1 ml Balance 120 ml 539 ml 0 ml 100 ml Intake Oral 120 ml 540 ml 100 ml IV Total 0 ml 0 ml 0 ml Stool Total 1 ml # Voids 2 2 3 2 # Bowel Movements 0 0 Objective Remarks GENERAL: Thin patient in no apparent distress. CARDIOVASCULAR: Regular rate and rhythm. RESPIRATORY: RR normal. CTAB. GASTROINTESTINAL: Abdomen soft, nontender, non-distended. NEUROLOGICAL: Awake and alert. PSYCHIATRIC: Insight and judgment normal. 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 (2) Hemiparesis affecting right side as late effect of cerebrovascular accident (CVA) ICD Code: I69.351 Status: Chronic (3) Shortness of breath ICD Code: R06.02 Status: Resolved (4) Fever ICD Code: R50.9 Status: Resolved (5) Abdominal pain ICD Code: R10.9 Status: Resolved (6) Hypertensive emergency ICD Code: I10 Status: Resolved (7) Metabolic acidosis ICD Code: E87.2 Status: Resolved (8) UTI (urinary tract infection) ICD Code: N39.0 Status: Resolved (9) Vaginal discharge ICD Code: N89.8 Status: Resolved (10) Increased urinary frequency ICD Code: R35.0 Status: Resolved Assessment and Plan Left basal ganglia bleed with 4mm MLS with dense Right hemiparesis, stable secondary to cocaine and uncontrolled hypertension Neurosurgery, Dr. Venegas has evaluated the patient. The bleed has been stable on repeat head CT. No surgery needed. Speech therapy indicated soft diet with thin liquids Occupational therapy indicates OT at rehabilitation. Patient will need to continue occupational therapy until discharge Physical therapy indicating PT at rehabilitation. We'll need to continue physical therapy, continue right AFO. Norflex for muscle spasms Abdominal pain: Resolved Leukocytosis resolved CT scan did not indicate any abnormality SOB: Resolved. Chest x-ray without acute abnormality. 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 No signs of central DI Urinalysis was performed which did not indicate any signs of infection Continue Belladonna rectal suppository Hypertension: Norvasc 10 mg daily Vasotec, clonidine as needed Hypokalemia: Resolved. Patient is on potassium replacement Monitor BMP as needed Alcohol and cocaine abuse dependence patient previously counseled. Status post thiamine Tobacco abuse Counseled on cessation Chronic hepatitis C, chronic Patient with chronic transaminitis continue to follow periodically. 11/05 AST and ALT improved from prior LFTs. Liver ultrasound showed fatty infiltration Anxiety: Controlled Seroquel low-dose initiated on 05/27. Bowel regimen: Justyna-Colace, magnesium hydroxide as needed. DVT prophylaxis Sequential compression devices. Lovenox 40 mg sq daily. Discharge Planning Occupational therapy recommends shower bench, 3-1 bedside commode for discharge. PT recommends right AFO. 02/04/17: CM continuing to look for SNF placement. Elisabeth Church Feb 08, 2017 15:35
[2017-02-08] MEDS: ENOXAPARIN SODIUM 40 MG/0.4 ML SYRINGE SQ SCH (16:20)
[2017-02-08 20:00] VITALS: BP 106/74; PULSE 87; RESP 21; TEMP 96.6; O2SAT 97
[2017-02-08] MEDS: QUEtiapine FUMARATE 25 MG TAB PO SCH (20:33)
[2017-02-09 08:00] VITALS: BP 127/75; PULSE 80; RESP 18; TEMP 96.2; O2SAT 94
[2017-02-09] MEDS: POTASSIUM CHLORIDE 10 MEQ CONTROLLED RELEASE TAB PO SCH (08:58)
[2017-02-09] MEDS: GABAPENTIN 100 MG CAP PO SCH ×3 (08:58→17:57)
[2017-02-09] MEDS: DOCUSATE SODIUM 50 MG/SENNA 8.6 MG TAB PO SCH ×2 (08:58→20:31)
[2017-02-09] MEDS: FAMOTIDINE 20 MG TAB PO SCH ×2 (08:58→20:31)
--- NOTE | 2017-02-09 10:38 | HHI.PR ---
Subjective Remarks Follow-up for hemiparesis. No acute complaints. No change in clinical status. Objective Vitals Vital Signs Date Time Temp Pulse Resp B/P Pulse Ox O2 Delivery O2 Flow Rate FiO2 02/09/17 08:00 96.2 80 18 127/75 94 02/08/17 20:00 96.6 87 21 106/74 97 02/08/17 11:39 96.8 88 18 122/72 97 I/O 02/08/17 02/08/17 02/08/17 02/09/17 02/09/17 02/09/17 07:00 15:00 23:00 07:00 15:00 23:00 Intake Total 0 ml 100 ml 720 ml 240 ml Output Total 1 ml Balance 0 ml 100 ml 719 ml 240 ml Intake Oral 100 ml 720 ml 240 ml IV Total 0 ml Stool Total 1 ml # Voids 2 7 3 Objective Remarks GENERAL: Thin patient in no apparent distress. CARDIOVASCULAR: Regular rate and rhythm. RESPIRATORY: RR normal. CTAB. GASTROINTESTINAL: Abdomen soft, nontender, non-distended. NEUROLOGICAL: Awake and alert. PSYCHIATRIC: Insight and judgment normal. 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 (2) Hemiparesis affecting right side as late effect of cerebrovascular accident (CVA) ICD Code: I69.351 Status: Chronic (3) Shortness of breath ICD Code: R06.02 Status: Resolved (4) Fever ICD Code: R50.9 Status: Resolved (5) Abdominal pain ICD Code: R10.9 Status: Resolved (6) Hypertensive emergency ICD Code: I10 Status: Resolved (7) Metabolic acidosis ICD Code: E87.2 Status: Resolved (8) UTI (urinary tract infection) ICD Code: N39.0 Status: Resolved (9) Vaginal discharge ICD Code: N89.8 Status: Resolved (10) Increased urinary frequency ICD Code: R35.0 Status: Resolved Assessment and Plan Left basal ganglia bleed with 4mm MLS with dense Right hemiparesis, stable secondary to cocaine and uncontrolled hypertension Neurosurgery, Dr. Venegas has evaluated the patient. The bleed has been stable on repeat head CT. No surgery needed. Speech therapy indicated soft diet with thin liquids Occupational therapy indicates OT at rehabilitation. Patient will need to continue occupational therapy until discharge Physical therapy indicating PT at rehabilitation. We'll need to continue physical therapy, continue right AFO. Norflex for muscle spasms Abdominal pain: Resolved Leukocytosis resolved CT scan did not indicate any abnormality SOB: Resolved. Chest x-ray without acute abnormality. 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 No signs of central DI Urinalysis was performed which did not indicate any signs of infection Continue Belladonna rectal suppository Hypertension: Norvasc 10 mg daily Vasotec, clonidine as needed Hypokalemia: Resolved. Patient is on potassium replacement Monitor BMP as needed Alcohol and cocaine abuse dependence patient previously counseled. Status post thiamine Tobacco abuse Counseled on cessation Chronic hepatitis C, chronic Patient with chronic transaminitis continue to follow periodically. 11/05 AST and ALT improved from prior LFTs. Liver ultrasound showed fatty infiltration Anxiety: Controlled Seroquel low-dose initiated on 05/27. Bowel regimen: Justyna-Colace, magnesium hydroxide as needed. DVT prophylaxis Sequential compression devices. Lovenox 40 mg sq daily. Discharge Planning Occupational therapy recommends shower bench, 3-1 bedside commode for discharge. PT recommends right AFO. 02/04/17: CM continuing to look for SNF placement. Elisabeth Church Feb 09, 2017 10:37
[2017-02-09] MEDS: ENOXAPARIN SODIUM 40 MG/0.4 ML SYRINGE SQ SCH ×2 (16:00→17:57)
[2017-02-09 20:00] VITALS: BP 142/92; PULSE 87; RESP 19; TEMP 98.7; O2SAT 97
[2017-02-09] MEDS: QUEtiapine FUMARATE 25 MG TAB PO SCH (20:31)
[2017-02-10 08:00] VITALS: BP 121/81; PULSE 84; RESP 18; TEMP 97.3; O2SAT 94
--- NOTE | 2017-02-10 11:12 | HHI.PR ---
Subjective Remarks Follow-up for hemiparesis. No acute complaints. No change in clinical status. Objective Vitals Vital Signs Date Time Temp Pulse Resp B/P Pulse Ox O2 Delivery O2 Flow Rate FiO2 02/10/17 08:00 97.3 84 18 121/81 94 02/09/17 20:00 98.7 87 19 142/92 97 I/O 02/09/17 02/09/17 02/09/17 02/10/17 02/10/17 02/10/17 06:59 14:59 22:59 06:59 14:59 22:59 Intake Total 240 ml 480 ml 240 ml 240 ml Balance 240 ml 480 ml 240 ml 240 ml Intake Oral 240 ml 480 ml 240 ml 240 ml # Voids 3 4 4 3 # Bowel Movements 0 Objective Remarks GENERAL: Thin patient in no apparent distress. CARDIOVASCULAR: Regular rate and rhythm. RESPIRATORY: RR normal. CTAB. GASTROINTESTINAL: Abdomen soft, nontender, non-distended. NEUROLOGICAL: Awake and alert. 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 Able to lift both legs off of the bed. PSYCHIATRIC: Insight and judgment normal. 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 (2) Hemiparesis affecting right side as late effect of cerebrovascular accident (CVA) ICD Code: I69.351 Status: Chronic (3) Shortness of breath ICD Code: R06.02 Status: Resolved (4) Fever ICD Code: R50.9 Status: Resolved (5) Abdominal pain ICD Code: R10.9 Status: Resolved (6) Hypertensive emergency ICD Code: I10 Status: Resolved (7) Metabolic acidosis ICD Code: E87.2 Status: Resolved (8) UTI (urinary tract infection) ICD Code: N39.0 Status: Resolved (9) Vaginal discharge ICD Code: N89.8 Status: Resolved (10) Increased urinary frequency ICD Code: R35.0 Status: Resolved Assessment and Plan Left basal ganglia bleed with 4mm MLS with dense Right hemiparesis, stable secondary to cocaine and uncontrolled hypertension Neurosurgery, Dr. Venegas has evaluated the patient. The bleed has been stable on repeat head CT. No surgery needed. Speech therapy indicated soft diet with thin liquids Occupational therapy indicates OT at rehabilitation. Patient will need to continue occupational therapy until discharge Physical therapy indicating PT at rehabilitation. We'll need to continue physical therapy, continue right AFO. Norflex for muscle spasms Abdominal pain: Resolved Leukocytosis resolved CT scan did not indicate any abnormality SOB: Resolved. Chest x-ray without acute abnormality. 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 No signs of central DI Urinalysis was performed which did not indicate any signs of infection Continue Belladonna rectal suppository Hypertension: Norvasc 10 mg daily Vasotec, clonidine as needed Hypokalemia: Resolved. Patient is on potassium replacement Monitor BMP as needed Alcohol and cocaine abuse dependence patient previously counseled. Status post thiamine Tobacco abuse Counseled on cessation Chronic hepatitis C, chronic Patient with chronic transaminitis continue to follow periodically. 11/05 AST and ALT improved from prior LFTs. Liver ultrasound showed fatty infiltration Anxiety: Controlled Seroquel low-dose initiated on 05/27. Bowel regimen: Justyna-Colace, magnesium hydroxide as needed. DVT prophylaxis Sequential compression devices. Lovenox 40 mg sq daily. Discharge Planning Occupational therapy recommends shower bench, 3-1 bedside commode for discharge. PT recommends right AFO. 02/04/17: CM continuing to look for SNF placement. Elisabeth Church Feb 10, 2017 11:12
[2017-02-10] MEDS: FAMOTIDINE 20 MG TAB PO SCH ×2 (11:46→20:21)
[2017-02-10] MEDS: POTASSIUM CHLORIDE 10 MEQ CONTROLLED RELEASE TAB PO SCH (11:46)
[2017-02-10] MEDS: DOCUSATE SODIUM 50 MG/SENNA 8.6 MG TAB PO SCH ×2 (11:46→20:21)
[2017-02-10] MEDS: GABAPENTIN 100 MG CAP PO SCH ×3 (11:46→17:34)
[2017-02-10] MEDS: QUEtiapine FUMARATE 25 MG TAB PO SCH (20:21)
[2017-02-10] MEDS: ORPHENADRINE CITRATE 100 MG SUSTAINED RELEASE TAB PO PRN (20:21)
[2017-02-11 08:00] VITALS: BP 100/81; PULSE 80; RESP 16; TEMP 97.1; O2SAT 97
[2017-02-11] MEDS: DOCUSATE SODIUM 50 MG/SENNA 8.6 MG TAB PO SCH ×2 (09:28→21:25)
[2017-02-11] MEDS: GABAPENTIN 100 MG CAP PO SCH ×3 (09:28→17:06)
[2017-02-11] MEDS: POTASSIUM CHLORIDE 10 MEQ CONTROLLED RELEASE TAB PO SCH (09:28)
[2017-02-11] MEDS: FAMOTIDINE 20 MG TAB PO SCH ×2 (09:28→21:25)
--- NOTE | 2017-02-11 10:13 | HHI.PR ---
Subjective Remarks Follow-up for CVA, right sided hemiparesis. No acute complaints. No change in clinical status. Objective Vitals I/O 02/10/17 02/10/17 02/10/17 02/11/17 02/11/17 02/11/17 07:00 15:00 23:00 07:00 15:00 23:00 Intake Total 240 ml 720 ml 0 ml Balance 240 ml 720 ml 0 ml Intake Oral 240 ml 720 ml IV Total 0 ml # Voids 3 3 # Bowel Movements 0 Objective Remarks GENERAL: Thin patient in no apparent distress. CARDIOVASCULAR: Regular rate and rhythm. RESPIRATORY: RR normal. CTAB. GASTROINTESTINAL: Abdomen soft, nontender, non-distended. NEUROLOGICAL: Awake and alert. PSYCHIATRIC: Insight and judgment normal. 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 (2) Hemiparesis affecting right side as late effect of cerebrovascular accident (CVA) ICD Code: I69.351 Status: Chronic (3) Shortness of breath ICD Code: R06.02 Status: Resolved (4) Fever ICD Code: R50.9 Status: Resolved (5) Abdominal pain ICD Code: R10.9 Status: Resolved (6) Hypertensive emergency ICD Code: I10 Status: Resolved (7) Metabolic acidosis ICD Code: E87.2 Status: Resolved (8) UTI (urinary tract infection) ICD Code: N39.0 Status: Resolved (9) Vaginal discharge ICD Code: N89.8 Status: Resolved (10) Increased urinary frequency ICD Code: R35.0 Status: Resolved Assessment and Plan Left basal ganglia bleed with 4mm MLS with dense Right hemiparesis, stable secondary to cocaine and uncontrolled hypertension Neurosurgery, Dr. Venegas has evaluated the patient. The bleed has been stable on repeat head CT. No surgery needed. Speech therapy indicated soft diet with thin liquids Occupational therapy indicates OT at rehabilitation. Patient will need to continue occupational therapy until discharge Physical therapy indicating PT at rehabilitation. We'll need to continue physical therapy, continue right AFO. Norflex for muscle spasms Abdominal pain: Resolved Leukocytosis resolved CT scan did not indicate any abnormality SOB: Resolved. Chest x-ray without acute abnormality. 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 No signs of central DI Urinalysis was performed which did not indicate any signs of infection Continue Belladonna rectal suppository Hypertension: Norvasc 10 mg daily Vasotec, clonidine as needed Hypokalemia: Resolved. Patient is on potassium replacement Monitor BMP as needed Alcohol and cocaine abuse dependence patient previously counseled. Status post thiamine Tobacco abuse Counseled on cessation Chronic hepatitis C, chronic Patient with chronic transaminitis continue to follow periodically. 11/05 AST and ALT improved from prior LFTs. Liver ultrasound showed fatty infiltration Anxiety: Controlled Seroquel low-dose initiated on 05/27. Bowel regimen: Justyna-Colace, magnesium hydroxide as needed. DVT prophylaxis Sequential compression devices. Lovenox 40 mg sq daily. Discharge Planning Occupational therapy recommends shower bench, 3-1 bedside commode for discharge. PT recommends right AFO. 02/04/17: CM continuing to look for SNF placement. Elisabeth Church Feb 11, 2017 10:13
[2017-02-11] MEDS: ENOXAPARIN SODIUM 40 MG/0.4 ML SYRINGE SQ SCH (15:00)
[2017-02-11 20:00] VITALS: BP 130/87; PULSE 93; RESP 20; TEMP 98; O2SAT 96
[2017-02-11] MEDS: QUEtiapine FUMARATE 25 MG TAB PO SCH (21:24)
[2017-02-12 08:00] VITALS: BP 142/88; PULSE 81; RESP 18; TEMP 97.2; O2SAT 93
[2017-02-12] MEDS: POTASSIUM CHLORIDE 10 MEQ CONTROLLED RELEASE TAB PO SCH (08:29)
[2017-02-12] MEDS: FAMOTIDINE 20 MG TAB PO SCH ×2 (08:29→20:46)
[2017-02-12] MEDS: DOCUSATE SODIUM 50 MG/SENNA 8.6 MG TAB PO SCH ×2 (08:29→20:46)
[2017-02-12] MEDS: GABAPENTIN 100 MG CAP PO SCH ×3 (08:30→17:24)
--- NOTE | 2017-02-12 11:54 | HHI.PR ---
Subjective Remarks Follow-up for right hemiparesis status post CVA. No acute complaints. Objective Vitals Vital Signs Date Time Temp Pulse Resp B/P Pulse Ox O2 Delivery O2 Flow Rate FiO2 02/12/17 08:00 97.2 81 18 142/88 93 02/11/17 20:00 98.0 93 20 130/87 96 I/O 02/11/17 02/11/17 02/11/17 02/12/17 02/12/17 02/12/17 07:00 15:00 23:00 07:00 15:00 23:00 Intake Total 600 ml 1400 ml 480 ml Output Total 1 ml Balance 600 ml 1399 ml 480 ml Intake Oral 600 ml 1400 ml 480 ml IV Total 0 ml Stool Total 1 ml # Voids 3 4 3 # Bowel Movements 0 0 Objective Remarks GENERAL: Thin patient in no apparent distress. CARDIOVASCULAR: Regular rate and rhythm. RESPIRATORY: RR normal. CTAB. GASTROINTESTINAL: Abdomen soft, nontender, non-distended. NEUROLOGICAL: Awake and alert. PSYCHIATRIC: Mildly irritable. Insight and judgment normal. 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 (2) Hemiparesis affecting right side as late effect of cerebrovascular accident (CVA) ICD Code: I69.351 Status: Chronic (3) Shortness of breath ICD Code: R06.02 Status: Resolved (4) Fever ICD Code: R50.9 Status: Resolved (5) Abdominal pain ICD Code: R10.9 Status: Resolved (6) Hypertensive emergency ICD Code: I10 Status: Resolved (7) Metabolic acidosis ICD Code: E87.2 Status: Resolved (8) UTI (urinary tract infection) ICD Code: N39.0 Status: Resolved (9) Vaginal discharge ICD Code: N89.8 Status: Resolved (10) Increased urinary frequency ICD Code: R35.0 Status: Resolved Assessment and Plan Left basal ganglia bleed with 4mm MLS with dense Right hemiparesis, stable secondary to cocaine and uncontrolled hypertension Neurosurgery, Dr. Venegas has evaluated the patient. The bleed has been stable on repeat head CT. No surgery needed. Speech therapy indicated soft diet with thin liquids Occupational therapy indicates OT at rehabilitation. Patient will need to continue occupational therapy until discharge Physical therapy indicating PT at rehabilitation. We'll need to continue physical therapy, continue right AFO. Norflex for muscle spasms Abdominal pain: Resolved Leukocytosis resolved CT scan did not indicate any abnormality SOB: Resolved. Chest x-ray without acute abnormality. 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 No signs of central DI Urinalysis was performed which did not indicate any signs of infection Continue Belladonna rectal suppository Hypertension: Norvasc 10 mg daily Vasotec, clonidine as needed Hypokalemia: Resolved. Patient is on potassium replacement Monitor BMP as needed Alcohol and cocaine abuse dependence patient previously counseled. Status post thiamine Tobacco abuse Counseled on cessation Chronic hepatitis C, chronic Patient with chronic transaminitis continue to follow periodically. 11/05 AST and ALT improved from prior LFTs. Liver ultrasound showed fatty infiltration Anxiety: Controlled Seroquel low-dose initiated on 05/27. Bowel regimen: Jutsyna-Colace, magnesium hydroxide as needed. DVT prophylaxis Sequential compression devices. Lovenox 40 mg sq daily. Discharge Planning Occupational therapy recommends shower bench, 3-1 bedside commode for discharge. PT recommends right AFO. 02/04/17: CM continuing to look for SNF placement. Elisabeth Church Feb 12, 2017 11:54
[2017-02-12] MEDS: ENOXAPARIN SODIUM 40 MG/0.4 ML SYRINGE SQ SCH (15:05)
[2017-02-12 20:00] VITALS: BP 121/81; PULSE 87; RESP 20; TEMP 98.4; O2SAT 95
[2017-02-12] MEDS: QUEtiapine FUMARATE 25 MG TAB PO SCH (20:46)
[2017-02-13 08:00] VITALS: BP 143/89; PULSE 79; RESP 19; TEMP 97.5; O2SAT 93
[2017-02-13] MEDS: DOCUSATE SODIUM 50 MG/SENNA 8.6 MG TAB PO SCH ×2 (08:16→20:36)
[2017-02-13] MEDS: GABAPENTIN 100 MG CAP PO SCH ×3 (08:16→17:04)
[2017-02-13] MEDS: POTASSIUM CHLORIDE 10 MEQ CONTROLLED RELEASE TAB PO SCH (08:16)
[2017-02-13] MEDS: FAMOTIDINE 20 MG TAB PO SCH ×2 (08:16→20:36)
--- NOTE | 2017-02-13 12:00 | HHI.PR ---
Subjective Remarks Follow-up for CVA, right hemiparesis. Patient is upset because apparently there was a miscommunication last night, and the patient did not receive a regular dinner. Objective Vitals Vital Signs Date Time Temp Pulse Resp B/P Pulse Ox O2 Delivery O2 Flow Rate FiO2 02/13/17 08:00 97.5 79 19 143/89 93 02/12/17 20:00 98.4 87 20 121/81 95 I/O 02/12/17 02/12/17 02/12/17 02/13/17 02/13/17 02/13/17 07:00 15:00 23:00 07:00 15:00 23:00 Intake Total 480 ml 1080 ml Output Total 300 ml Balance 480 ml -300 ml 1080 ml Intake Oral 480 ml 1080 ml Output Urine Total 300 ml # Voids 3 5 # Bowel Movements 0 Objective Remarks GENERAL: Thin patient in no apparent distress. CARDIOVASCULAR: Regular rate and rhythm. RESPIRATORY: RR normal. CTAB. GASTROINTESTINAL: Abdomen soft, nontender, non-distended. NEUROLOGICAL: Awake and alert. PSYCHIATRIC: Insight and judgment normal. 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 (2) Hemiparesis affecting right side as late effect of cerebrovascular accident (CVA) ICD Code: I69.351 Status: Chronic (3) Shortness of breath ICD Code: R06.02 Status: Resolved (4) Fever ICD Code: R50.9 Status: Resolved (5) Abdominal pain ICD Code: R10.9 Status: Resolved (6) Hypertensive emergency ICD Code: I10 Status: Resolved (7) Metabolic acidosis ICD Code: E87.2 Status: Resolved (8) UTI (urinary tract infection) ICD Code: N39.0 Status: Resolved (9) Vaginal discharge ICD Code: N89.8 Status: Resolved (10) Increased urinary frequency ICD Code: R35.0 Status: Resolved Assessment and Plan Left basal ganglia bleed with 4mm MLS with dense Right hemiparesis, stable secondary to cocaine and uncontrolled hypertension Neurosurgery, Dr. Venegas has evaluated the patient. The bleed has been stable on repeat head CT. No surgery needed. Speech therapy indicated soft diet with thin liquids Occupational therapy indicates OT at rehabilitation. Patient will need to continue occupational therapy until discharge Physical therapy indicating PT at rehabilitation. We'll need to continue physical therapy, continue right AFO. Norflex for muscle spasms Abdominal pain: Resolved Leukocytosis resolved CT scan did not indicate any abnormality SOB: Resolved. Chest x-ray without acute abnormality. 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 No signs of central DI Urinalysis was performed which did not indicate any signs of infection Continue Belladonna rectal suppository Hypertension: Norvasc 10 mg daily Vasotec, clonidine as needed BP fluctuates; will monitor Hypokalemia: Resolved. Patient is on potassium replacement Monitor BMP as needed Alcohol and cocaine abuse dependence patient previously counseled. Status post thiamine Tobacco abuse Counseled on cessation Chronic hepatitis C, chronic Patient with chronic transaminitis continue to follow periodically. 11/05 AST and ALT improved from prior LFTs. Liver ultrasound showed fatty infiltration Anxiety: Controlled Seroquel low-dose initiated on 05/27. Bowel regimen: Justyna-Colace, magnesium hydroxide as needed. DVT prophylaxis Sequential compression devices. Lovenox 40 mg sq daily. Discharge Planning Occupational therapy recommends shower bench, 3-1 bedside commode for discharge. PT recommends right AFO. 02/04/17: CM continuing to look for SNF placement. Elisabeth Church Feb 13, 2017 12:00
[2017-02-13] MEDS: ENOXAPARIN SODIUM 40 MG/0.4 ML SYRINGE SQ SCH (15:34)
[2017-02-13 20:07] VITALS: BP 115/78; PULSE 85; RESP 18; TEMP 98.7; O2SAT 97
[2017-02-13] MEDS: QUEtiapine FUMARATE 25 MG TAB PO SCH (20:35)
[2017-02-14 08:00] VITALS: BP 130/85; PULSE 83; RESP 16; TEMP 97.5; O2SAT 97
[2017-02-14] MEDS: DOCUSATE SODIUM 50 MG/SENNA 8.6 MG TAB PO SCH ×2 (09:00→20:46)
[2017-02-14] MEDS: POTASSIUM CHLORIDE 10 MEQ CONTROLLED RELEASE TAB PO SCH (10:32)
[2017-02-14] MEDS: GABAPENTIN 100 MG CAP PO SCH ×2 (10:33→17:51)
[2017-02-14] MEDS: FAMOTIDINE 20 MG TAB PO SCH ×2 (10:33→20:46)
--- NOTE | 2017-02-14 10:35 | HHI.PR ---
Subjective Remarks Follow-up for CVA, right hemiparesis. No acute issues. Objective Vitals Vital Signs Date Time Temp Pulse Resp B/P Pulse Ox O2 Delivery O2 Flow Rate FiO2 02/13/17 20:07 98.7 85 18 115/78 97 I/O 02/13/17 02/13/17 02/13/17 02/14/17 02/14/17 02/14/17 07:00 15:00 23:00 07:00 15:00 23:00 Intake Total 1080 ml 1320 ml Balance 1080 ml 1320 ml Intake Oral 1080 ml 1320 ml # Voids 5 5 1 # Bowel Movements 0 Objective Remarks GENERAL: Thin patient in no apparent distress. CARDIOVASCULAR: Regular rate and rhythm. RESPIRATORY: RR normal. CTAB. GASTROINTESTINAL: Abdomen soft, nontender, non-distended. NEUROLOGICAL: Awake and alert. PSYCHIATRIC: Insight and judgment normal. 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 (2) Hemiparesis affecting right side as late effect of cerebrovascular accident (CVA) ICD Code: I69.351 Status: Chronic (3) Shortness of breath ICD Code: R06.02 Status: Resolved (4) Fever ICD Code: R50.9 Status: Resolved (5) Abdominal pain ICD Code: R10.9 Status: Resolved (6) Hypertensive emergency ICD Code: I10 Status: Resolved (7) Metabolic acidosis ICD Code: E87.2 Status: Resolved (8) UTI (urinary tract infection) ICD Code: N39.0 Status: Resolved (9) Vaginal discharge ICD Code: N89.8 Status: Resolved (10) Increased urinary frequency ICD Code: R35.0 Status: Resolved Assessment and Plan Left basal ganglia bleed with 4mm MLS with dense Right hemiparesis, stable secondary to cocaine and uncontrolled hypertension Neurosurgery, Dr. Venegas has evaluated the patient. The bleed has been stable on repeat head CT. No surgery needed. Speech therapy indicated soft diet with thin liquids Occupational therapy indicates OT at rehabilitation. Patient will need to continue occupational therapy until discharge Physical therapy indicating PT at rehabilitation. We'll need to continue physical therapy, continue right AFO. Norflex for muscle spasms Abdominal pain: Resolved Leukocytosis resolved CT scan did not indicate any abnormality SOB: Resolved. Chest x-ray without acute abnormality. 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 No signs of central DI Urinalysis was performed which did not indicate any signs of infection Continue Belladonna rectal suppository Hypertension: Norvasc 10 mg daily Vasotec, clonidine as needed BP fluctuates; will monitor Hypokalemia: Resolved. Patient is on potassium replacement Monitor BMP as needed Alcohol and cocaine abuse dependence patient previously counseled. Status post thiamine Tobacco abuse Counseled on cessation Chronic hepatitis C, chronic Patient with chronic transaminitis continue to follow periodically. 11/05 AST and ALT improved from prior LFTs. Liver ultrasound showed fatty infiltration Anxiety: Controlled Seroquel low-dose initiated on 05/27. Bowel regimen: Justyna-Colace, magnesium hydroxide as needed. DVT prophylaxis Sequential compression devices. Lovenox 40 mg sq daily. Discharge Planning Occupational therapy recommends shower bench, 3-1 bedside commode for discharge. PT recommends right AFO. 02/04/17: CM continuing to look for SNF placement. Elisabeth Church Feb 14, 2017 10:35
[2017-02-14] MEDS: ENOXAPARIN SODIUM 40 MG/0.4 ML SYRINGE SQ SCH (17:51)
[2017-02-14 20:00] VITALS: BP 125/82; PULSE 86; RESP 20; TEMP 97.1; O2SAT 94
[2017-02-14] MEDS: QUEtiapine FUMARATE 25 MG TAB PO SCH (20:45)
[2017-02-14] MEDS: ORPHENADRINE CITRATE 100 MG SUSTAINED RELEASE TAB PO PRN (20:46)
[2017-02-15 08:00] VITALS: BP 115/74; PULSE 78; RESP 18; TEMP 97.9; O2SAT 96
[2017-02-15] MEDS: DOCUSATE SODIUM 50 MG/SENNA 8.6 MG TAB PO SCH ×2 (09:00→21:30)
[2017-02-15] MEDS: GABAPENTIN 100 MG CAP PO SCH ×3 (09:54→17:17)
[2017-02-15] MEDS: FAMOTIDINE 20 MG TAB PO SCH ×2 (09:54→21:29)
[2017-02-15] MEDS: POTASSIUM CHLORIDE 10 MEQ CONTROLLED RELEASE TAB PO SCH (09:54)
--- NOTE | 2017-02-15 12:52 | HHI.PR ---
Subjective Remarks Patient seen and examined today for follow-up on CVA. Patient denies any new complaints. No change in clinical status. Objective Vitals Vital Signs Date Time Temp Pulse Resp B/P Pulse Ox O2 Delivery O2 Flow Rate FiO2 02/15/17 08:00 97.9 78 18 115/74 96 02/14/17 20:00 97.1 86 20 125/82 94 I/O 02/14/17 02/14/17 02/14/17 02/15/17 02/15/17 02/15/17 07:00 15:00 23:00 07:00 15:00 23:00 Intake Total 680 ml 480 ml Balance 680 ml 480 ml Intake Oral 680 ml 480 ml # Voids 1 2 3 # Bowel Movements 0 0 Objective Remarks GENERAL: Well-developed, well-nourished, in no acute distress. alert and orientated HEENT: Head is normocephalic without any lesions or masses noted right facial droop. NECK: Trachea midline no deviation. CARDIAC: Regular rhythm, regular rate. S1/S2 are heard. No murmurs gallops or rubs. LUNGS: Clear to auscultation bilaterally. No wheeze, rhonchi or rales. No use of accessory muscles on inspiration or expiration. ABDOMEN: Soft, nontender. Nondistended. Bowel sounds heard in all 4 quadrants. No organomegaly or masses. Negative rebound, negative guarding EXTREMITIES: No edema, pulses are equal bilaterally. No cyanosis or clubbing NEUROLOGY: Mood and affect appear appropriate. Dense right hemiparesis which appears to be improving in the lower extremity. Patient is able to move her right hand second third and fourth digit. 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 Venegas has evaluated the patient. The bleed was stable on repeat head CT. No surgery needed. Speech therapy has signed off and indicates patient should be on a soft diet with thin liquids Occupational therapy indicates OT at rehabilitation. Patient will need to continue occupational therapy until discharge Physical therapy indicating PT at rehabilitation. We'll need to continue physical therapy, continue right AFO, Norflex for muscle spasm --trapeze assembly for bed to facilitate functioning --Consulted OT for wheelchair recommendations. Supplied recommendations to case management to provide wheelchair. reconsulted case management to supply wheelchair Patient will likely be able to use a wheelchair and be discharged prior to ambulating out of the hospital or funding available for rehabilitation Right arm pain, controlled Continue Neurontin for right arm neuropathic pain Dysuria, urinary frequency, resolved BNP was performed, sodium level was normal. No signs of central DI Urinalysis was performed which indicated leukouria with sign of contamination Urine culture showed 50-100,000 colonies of mixed manasa Hypokalemia, controlled Patient continued on potassium supplementation Continue monitor as needed Hypertension, stable Norvasc 10 mg daily Vasotec, clonidine as needed Alcohol and cocaine abuse dependence patient previously counseled. Status post thiamine Tobacco abuse Counseled on cessation Chronic hepatitis C, chronic Patient with chronic transaminitis continue to follow monthly. liver ultrasound showed fatty infiltration Anxiety. Controlled Seroquel low-dose initiated on 05/27. Bowel regimen Justyna-Colace as needed DVT prophylaxis Sequential compression devices. Lovenox 40 mg daily. Patient was seen today, records reviewed. No change in present treatment plan Discharge Planning Discharge planning per case management. Consult case management for wheelchair. Patient will likely be able to use wheelchair and be discharged prior to her being able to be discharged without the wheelchair and home. PT recommending AFO, OT recommending 31 bedside commode, both of which recommended patient go to rehabilitation. Jaycob Rebolledo Feb 15, 2017 12:52
[2017-02-15] MEDS: ENOXAPARIN SODIUM 40 MG/0.4 ML SYRINGE SQ SCH (17:18)
[2017-02-15 20:00] VITALS: BP 110/75; PULSE 87; RESP 20; TEMP 99.4; O2SAT 97
[2017-02-15] MEDS: QUEtiapine FUMARATE 25 MG TAB PO SCH (21:26)
[2017-02-15] MEDS: ORPHENADRINE CITRATE 100 MG SUSTAINED RELEASE TAB PO PRN (21:26)
[2017-02-16] MEDS: POTASSIUM CHLORIDE 10 MEQ CONTROLLED RELEASE TAB PO SCH (08:03)
[2017-02-16] MEDS: DOCUSATE SODIUM 50 MG/SENNA 8.6 MG TAB PO SCH ×2 (08:03→20:45)
[2017-02-16] MEDS: GABAPENTIN 100 MG CAP PO SCH ×3 (08:03→16:39)
[2017-02-16] MEDS: FAMOTIDINE 20 MG TAB PO SCH ×2 (08:03→20:45)
[2017-02-16 08:04] VITALS: BP 127/85; PULSE 85; RESP 20; TEMP 97.2; O2SAT 98
--- NOTE | 2017-02-16 11:24 | HHI.PR ---
Subjective Remarks Patient seen and examined today for follow-up on CVA. Patient states that she is having some pain in her right hand third digit. She denies any trauma. Objective Vitals Vital Signs Date Time Temp Pulse Resp B/P Pulse Ox O2 Delivery O2 Flow Rate FiO2 02/16/17 08:04 97.2 85 20 127/85 98 02/15/17 20:00 99.4 87 20 110/75 97 I/O 02/15/17 02/15/17 02/15/17 02/16/17 02/16/17 02/16/17 07:00 15:00 23:00 07:00 15:00 23:00 Intake Total 480 ml 360 ml 560 ml 480 ml Balance 480 ml 360 ml 560 ml 480 ml Intake Oral 480 ml 360 ml 560 ml 480 ml # Voids 3 4 2 3 # Bowel Movements 0 0 0 0 Objective Remarks GENERAL: Well-developed, well-nourished, in no acute distress. alert and orientated HEENT: Head is normocephalic without any lesions or masses noted right facial droop. NECK: Trachea midline no deviation. CARDIAC: Regular rhythm, regular rate. S1/S2 are heard. No murmurs gallops or rubs. LUNGS: Clear to auscultation bilaterally. No wheeze, rhonchi or rales. No use of accessory muscles on inspiration or expiration. ABDOMEN: Soft, nontender. Nondistended. Bowel sounds heard in all 4 quadrants. No organomegaly or masses. Negative rebound, negative guarding EXTREMITIES: No edema, pulses are equal bilaterally. No cyanosis or clubbing NEUROLOGY: Mood and affect appear appropriate. Dense right hemiparesis which appears to be improving in the lower extremity. Patient is able to move her right hand second third and fourth digit. 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 Venegas has evaluated the patient. The bleed was stable on repeat head CT. No surgery needed. Speech therapy has signed off and indicates patient should be on a soft diet with thin liquids Occupational therapy indicates OT at rehabilitation. Patient will need to continue occupational therapy until discharge Physical therapy indicating PT at rehabilitation. We'll need to continue physical therapy, continue right AFO, Norflex for muscle spasm --trapeze assembly for bed to facilitate functioning --Consulted OT for wheelchair recommendations. Supplied recommendations to case management to provide wheelchair. reconsulted case management to supply wheelchair Patient will likely be able to use a wheelchair and be discharged prior to ambulating out of the hospital or funding available for rehabilitation Left hand third digit pain Obtain x-ray Right arm pain, controlled Continue Neurontin for right arm neuropathic pain Dysuria, urinary frequency, resolved BNP was performed, sodium level was normal. No signs of central DI Urinalysis was performed which indicated leukouria with sign of contamination Urine culture showed 50-100,000 colonies of mixed manasa Hypokalemia, controlled Patient continued on potassium supplementation Continue monitor as needed Hypertension, stable Norvasc 10 mg daily Vasotec, clonidine as needed Alcohol and cocaine abuse dependence patient previously counseled. Status post thiamine Tobacco abuse Counseled on cessation Chronic hepatitis C, chronic Patient with chronic transaminitis continue to follow monthly. liver ultrasound showed fatty infiltration Anxiety. Controlled Seroquel low-dose initiated on 05/27. Bowel regimen Justyna-Colace as needed DVT prophylaxis Sequential compression devices. Lovenox 40 mg daily. Discharge Planning Discharge planning per case management. Consult case management for wheelchair. Patient will likely be able to use wheelchair and be discharged prior to her being able to be discharged without the wheelchair and home. PT recommending AFO, OT recommending 31 bedside commode, shower bench, ant- wheelchair with left arm drive. Both of which recommended patient go to rehabilitation. Jaycob Rebolledo Feb 16, 2017 11:24
--- NOTE | 2017-02-16 14:32 | RADHPO ---
EXAM DATE/TIME: 02/16/2017 12:55 [facility] COMPARISON: No previous studies available for comparison. INDICATIONS : Left hand/ third digit pain with no known injury. MEDICAL HISTORY : Hypertension. Hepatitis C. SURGICAL HISTORY : Abdominal surgery. ENCOUNTER: Subsequent ACUITY: 4 - 6 months PAIN SCORE: 7/10 LOCATION: Left hand FINDINGS: Two view examination of the left hand demonstrates no soft tissue swelling, dislocation, or fracture. There is diffuse osteopenia. There are mild diffuse osteoarthritic changes with joint space loss and mild hypertrophic change. The soft tissues appear unremarkable. CONCLUSION: 1. Mild osteoarthritic change. 2. Osteopenia with no acute fracture or malalignment. Camden Logan MD on February 16, 2017 at 14:30 Board Certified Radiologist. This report was verified electronically.
[2017-02-16] MEDS: ENOXAPARIN SODIUM 40 MG/0.4 ML SYRINGE SQ SCH (16:17)
[2017-02-16 20:00] VITALS: BP 135/85; PULSE 88; RESP 20; TEMP 98; O2SAT 96
[2017-02-16] MEDS: QUEtiapine FUMARATE 25 MG TAB PO SCH (20:45)
[2017-02-17 09:47] VITALS: BP 115/77; PULSE 83; RESP 15; TEMP 97.5; O2SAT 95
[2017-02-17] MEDS: POTASSIUM CHLORIDE 10 MEQ CONTROLLED RELEASE TAB PO SCH (09:56)
[2017-02-17] MEDS: FAMOTIDINE 20 MG TAB PO SCH ×2 (09:56→21:34)
[2017-02-17] MEDS: DOCUSATE SODIUM 50 MG/SENNA 8.6 MG TAB PO SCH ×2 (09:56→21:34)
[2017-02-17] MEDS: GABAPENTIN 100 MG CAP PO SCH ×3 (09:56→17:50)
--- NOTE | 2017-02-17 11:42 | HHI.PR ---
Subjective Remarks Patient seen and examined today for follow-up on CVA and hemiplegia. Patient states that finger does feel little better today. Still a little stiff. I notified her of the x-ray results. Objective Vitals Vital Signs Date Time Temp Pulse Resp B/P Pulse Ox O2 Delivery O2 Flow Rate FiO2 02/17/17 09:47 97.5 83 15 115/77 95 02/16/17 20:00 98.0 88 20 135/85 96 I/O 02/16/17 02/16/17 02/16/17 02/17/17 02/17/17 02/17/17 07:00 15:00 23:00 07:00 15:00 23:00 Intake Total 480 ml 480 ml 240 ml 120 ml Balance 480 ml 480 ml 240 ml 120 ml Intake Oral 480 ml 480 ml 240 ml 120 ml # Voids 3 3 1 1 # Bowel Movements 0 0 0 0 Objective Remarks GENERAL: Well-developed, well-nourished, in no acute distress. alert and orientated HEENT: Head is normocephalic without any lesions or masses noted right facial droop. NECK: Trachea midline no deviation. CARDIAC: Regular rhythm, regular rate. S1/S2 are heard. No murmurs gallops or rubs. LUNGS: Clear to auscultation bilaterally. No wheeze, rhonchi or rales. No use of accessory muscles on inspiration or expiration. ABDOMEN: Soft, nontender. Nondistended. Bowel sounds heard in all 4 quadrants. No organomegaly or masses. Negative rebound, negative guarding EXTREMITIES: No edema, pulses are equal bilaterally. No cyanosis or clubbing NEUROLOGY: Mood and affect appear appropriate. Dense right hemiparesis which appears to be improving in the lower extremity. Patient is able to move her right hand second third and fourth digit. 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 Venegas has evaluated the patient. The bleed was stable on repeat head CT. No surgery needed. Speech therapy has signed off and indicates patient should be on a soft diet with thin liquids Occupational therapy indicates OT at rehabilitation. Patient will need to continue occupational therapy until discharge Physical therapy indicating PT at rehabilitation. We'll need to continue physical therapy, continue right AFO, Norflex for muscle spasm --trapeze assembly for bed to facilitate functioning --Consulted OT for wheelchair recommendations. Supplied recommendations to case management to provide wheelchair. 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 No signs of central DI Urinalysis was performed which indicated leukouria with sign of contamination Urine culture showed 50-100,000 colonies of mixed manasa Hypokalemia, controlled Patient continued on potassium supplementation Continue monitor as needed Hypertension, stable Norvasc 10 mg daily Vasotec, clonidine as needed Alcohol and cocaine abuse dependence patient previously counseled. Status post thiamine Tobacco abuse Counseled on cessation Chronic hepatitis C, chronic Patient with chronic transaminitis continue to follow monthly. liver ultrasound showed fatty infiltration Anxiety. Controlled Seroquel low-dose initiated on 05/27. Bowel regimen Justyna-Colace as needed DVT prophylaxis Sequential compression devices. Lovenox 40 mg daily. Discharge Planning Discharge planning per case management. Consult case management for wheelchair. Patient will likely be able to use wheelchair and be discharged prior to her being able to be discharged without the wheelchair and home. PT recommending AFO, OT recommending 31 bedside commode, shower bench, ant- wheelchair with left arm drive. Both of which recommended patient go to rehabilitation. Jaycob Rebolledo Feb 17, 2017 11:42
[2017-02-17] MEDS: ENOXAPARIN SODIUM 40 MG/0.4 ML SYRINGE SQ SCH (17:33)
[2017-02-17 20:00] VITALS: BP 136/90; PULSE 86; RESP 20; TEMP 97.7; O2SAT 97
[2017-02-17] MEDS: QUEtiapine FUMARATE 25 MG TAB PO SCH (21:00)
[2017-02-18 08:00] VITALS: BP 125/84; PULSE 82; RESP 16; TEMP 97.6; O2SAT 95
[2017-02-18] MEDS: DOCUSATE SODIUM 50 MG/SENNA 8.6 MG TAB PO SCH ×2 (08:47→21:37)
[2017-02-18] MEDS: FAMOTIDINE 20 MG TAB PO SCH ×2 (08:47→21:37)
[2017-02-18] MEDS: POTASSIUM CHLORIDE 10 MEQ CONTROLLED RELEASE TAB PO SCH (08:47)
[2017-02-18] MEDS: GABAPENTIN 100 MG CAP PO SCH ×3 (08:47→18:13)
--- NOTE | 2017-02-18 10:39 | HHI.PR ---
Subjective Remarks Patient seen and examined today in follow-up for CVA and hemiparesis. Patient denies any new complaints. No change in clinical status. Objective Vitals Vital Signs Date Time Temp Pulse Resp B/P Pulse Ox O2 Delivery O2 Flow Rate FiO2 02/18/17 08:00 97.6 82 16 125/84 95 02/17/17 20:00 97.7 86 20 136/90 97 I/O 02/17/17 02/17/17 02/17/17 02/18/17 02/18/17 02/18/17 07:00 15:00 23:00 07:00 15:00 23:00 Intake Total 120 ml 1000 ml 240 ml Balance 120 ml 1000 ml 240 ml Intake Oral 120 ml 1000 ml 240 ml IV Total 0 ml # Voids 1 3 3 # Bowel Movements 0 1 0 Objective Remarks GENERAL: Well-developed, well-nourished, in no acute distress. alert and orientated HEENT: Head is normocephalic without any lesions or masses noted right facial droop. NECK: Trachea midline no deviation. CARDIAC: Regular rhythm, regular rate. S1/S2 are heard. No murmurs gallops or rubs. LUNGS: Clear to auscultation bilaterally. No wheeze, rhonchi or rales. No use of accessory muscles on inspiration or expiration. ABDOMEN: Soft, nontender. Nondistended. Bowel sounds heard in all 4 quadrants. No organomegaly or masses. Negative rebound, negative guarding EXTREMITIES: No edema, pulses are equal bilaterally. No cyanosis or clubbing NEUROLOGY: Mood and affect appear appropriate. Dense right hemiparesis which appears to be improving in the lower extremity. Patient is able to move her right hand second third and fourth digit. 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 Venegas has evaluated the patient. The bleed was stable on repeat head CT. No surgery needed. Speech therapy has signed off and indicates patient should be on a soft diet with thin liquids Occupational therapy indicates OT at rehabilitation. Patient will need to continue occupational therapy until discharge Physical therapy indicating PT at rehabilitation. We'll need to continue physical therapy, continue right AFO, Norflex for muscle spasm --trapeze assembly for bed to facilitate functioning --Consulted OT for wheelchair recommendations. Supplied recommendations to case management to provide wheelchair. 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 No signs of central DI Urinalysis was performed which indicated leukouria with sign of contamination Urine culture showed 50-100,000 colonies of mixed manasa Hypokalemia, controlled Patient continued on potassium supplementation Continue monitor as needed Hypertension, stable Norvasc 10 mg daily Vasotec, clonidine as needed Alcohol and cocaine abuse dependence patient previously counseled. Status post thiamine Tobacco abuse Counseled on cessation Chronic hepatitis C, chronic Patient with chronic transaminitis continue to follow monthly. liver ultrasound showed fatty infiltration Anxiety. Controlled Seroquel low-dose initiated on 05/27. Bowel regimen Justyna-Colace as needed DVT prophylaxis Sequential compression devices. Lovenox 40 mg daily. Discharge Planning Discharge planning per case management. Consult case management for wheelchair. Patient will likely be able to use wheelchair and be discharged prior to her being able to be discharged without the wheelchair and home. PT recommending AFO, OT recommending 31 bedside commode, shower bench, ant- wheelchair with left arm drive. Both of which recommended patient go to rehabilitation. Jaycob Rebolledo Feb 18, 2017 10:39
[2017-02-18] MEDS: ENOXAPARIN SODIUM 40 MG/0.4 ML SYRINGE SQ SCH (16:14)
[2017-02-18 20:00] VITALS: BP 113/75; PULSE 83; RESP 21; TEMP 97.5; O2SAT 98
[2017-02-18] MEDS: QUEtiapine FUMARATE 25 MG TAB PO SCH (21:37)
[2017-02-19 08:00] VITALS: BP 122/79; PULSE 82; RESP 16; TEMP 97.7; O2SAT 94
[2017-02-19] MEDS: POTASSIUM CHLORIDE 10 MEQ CONTROLLED RELEASE TAB PO SCH (09:34)
[2017-02-19] MEDS: DOCUSATE SODIUM 50 MG/SENNA 8.6 MG TAB PO SCH ×2 (09:34→20:44)
[2017-02-19] MEDS: FAMOTIDINE 20 MG TAB PO SCH ×2 (09:34→20:44)
[2017-02-19] MEDS: GABAPENTIN 100 MG CAP PO SCH ×3 (09:34→18:25)
--- NOTE | 2017-02-19 12:55 | HHI.PR ---
Subjective Remarks Patient seen and examined today in follow-up for CVA and hemiplegia. Patient denies any new complaints. No change in clinical status. Objective Vitals Vital Signs Date Time Temp Pulse Resp B/P Pulse Ox O2 Delivery O2 Flow Rate FiO2 02/19/17 08:00 97.7 82 16 122/79 94 02/18/17 20:00 97.5 83 21 113/75 98 I/O 02/18/17 02/18/17 02/18/17 02/19/17 02/19/17 02/19/17 07:00 15:00 23:00 07:00 15:00 23:00 Intake Total 240 ml 1260 ml 360 ml 240 ml Balance 240 ml 1260 ml 360 ml 240 ml Intake Oral 240 ml 1260 ml 360 ml 240 ml # Voids 3 3 3 3 # Bowel Movements 0 1 Objective Remarks GENERAL: Well-developed, well-nourished, in no acute distress. alert and orientated HEENT: Head is normocephalic without any lesions or masses noted right facial droop. NECK: Trachea midline no deviation. CARDIAC: Regular rhythm, regular rate. S1/S2 are heard. No murmurs gallops or rubs. LUNGS: Clear to auscultation bilaterally. No wheeze, rhonchi or rales. No use of accessory muscles on inspiration or expiration. ABDOMEN: Soft, nontender. Nondistended. Bowel sounds heard in all 4 quadrants. No organomegaly or masses. Negative rebound, negative guarding EXTREMITIES: No edema, pulses are equal bilaterally. No cyanosis or clubbing NEUROLOGY: Mood and affect appear appropriate. Dense right hemiparesis which appears to be improving in the lower extremity. Patient is able to move her right hand second third and fourth digit. 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 Venegas has evaluated the patient. The bleed was stable on repeat head CT. No surgery needed. Speech therapy has signed off and indicates patient should be on a soft diet with thin liquids Occupational therapy indicates OT at rehabilitation. Patient will need to continue occupational therapy until discharge Physical therapy indicating PT at rehabilitation. We'll need to continue physical therapy, continue right AFO, Norflex for muscle spasm --trapeze assembly for bed to facilitate functioning --Consulted OT for wheelchair recommendations. Supplied recommendations to case management to provide wheelchair. 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 No signs of central DI Urinalysis was performed which indicated leukouria with sign of contamination Urine culture showed 50-100,000 colonies of mixed manasa Hypokalemia, controlled Patient continued on potassium supplementation Continue monitor as needed Hypertension, stable Norvasc 10 mg daily Vasotec, clonidine as needed Alcohol and cocaine abuse dependence patient previously counseled. Status post thiamine Tobacco abuse Counseled on cessation Chronic hepatitis C, chronic Patient with chronic transaminitis continue to follow monthly. liver ultrasound showed fatty infiltration Anxiety. Controlled Seroquel low-dose initiated on 05/27. Bowel regimen Justyna-Colace as needed DVT prophylaxis Sequential compression devices. Lovenox 40 mg daily. Discharge Planning Discharge planning per case management. Consult case management for wheelchair. Patient will likely be able to use wheelchair and be discharged prior to her being able to be discharged without the wheelchair and home. PT recommending AFO, OT recommending 31 bedside commode, shower bench, ant- wheelchair with left arm drive. Both of which recommended patient go to rehabilitation. Jaycob Rebolledo Feb 19, 2017 12:55
[2017-02-19] MEDS: ENOXAPARIN SODIUM 40 MG/0.4 ML SYRINGE SQ SCH (15:58)
[2017-02-19 20:00] VITALS: BP 128/83; PULSE 87; RESP 20; TEMP 98.5; O2SAT 95
[2017-02-19] MEDS: QUEtiapine FUMARATE 25 MG TAB PO SCH (20:44)
[2017-02-20 08:00] VITALS: BP 118/80; PULSE 79; RESP 18; TEMP 96.7; O2SAT 97
[2017-02-20] MEDS: FAMOTIDINE 20 MG TAB PO SCH ×2 (10:43→20:36)
[2017-02-20] MEDS: GABAPENTIN 100 MG CAP PO SCH ×3 (10:43→16:30)
[2017-02-20] MEDS: POTASSIUM CHLORIDE 10 MEQ CONTROLLED RELEASE TAB PO SCH (10:43)
[2017-02-20] MEDS: DOCUSATE SODIUM 50 MG/SENNA 8.6 MG TAB PO SCH ×2 (10:43→20:36)
--- NOTE | 2017-02-20 11:27 | HHI.PR ---
Subjective Remarks Patient seen and examined today for follow-up on CVA and hemiplegia. Patient denies any new complaints. No change in clinical status. Objective Vitals Vital Signs Date Time Temp Pulse Resp B/P Pulse Ox O2 Delivery O2 Flow Rate FiO2 02/20/17 08:00 96.7 79 18 118/80 97 02/19/17 20:00 98.5 87 20 128/83 95 I/O 02/19/17 02/19/17 02/19/17 02/20/17 02/20/17 02/20/17 07:00 15:00 23:00 07:00 15:00 23:00 Intake Total 240 ml 720 ml 720 ml 480 ml Balance 240 ml 720 ml 720 ml 480 ml Intake Oral 240 ml 720 ml 720 ml 480 ml # Voids 3 3 3 2 # Bowel Movements 0 0 0 Objective Remarks GENERAL: Well-developed, well-nourished, in no acute distress. alert and orientated HEENT: Head is normocephalic without any lesions or masses noted right facial droop. NECK: Trachea midline no deviation. CARDIAC: Regular rhythm, regular rate. S1/S2 are heard. No murmurs gallops or rubs. LUNGS: Clear to auscultation bilaterally. No wheeze, rhonchi or rales. No use of accessory muscles on inspiration or expiration. ABDOMEN: Soft, nontender. Nondistended. Bowel sounds heard in all 4 quadrants. No organomegaly or masses. Negative rebound, negative guarding EXTREMITIES: No edema, pulses are equal bilaterally. No cyanosis or clubbing NEUROLOGY: Mood and affect appear appropriate. Dense right hemiparesis which appears to be improving in the lower extremity. Patient is able to move her right hand second third and fourth digit. 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 Venegas has evaluated the patient. The bleed was stable on repeat head CT. No surgery needed. Speech therapy has signed off and indicates patient should be on a soft diet with thin liquids Occupational therapy indicates OT at rehabilitation. Patient will need to continue occupational therapy until discharge Physical therapy indicating PT at rehabilitation. We'll need to continue physical therapy, continue right AFO, Norflex for muscle spasm --trapeze assembly for bed to facilitate functioning --Consulted OT for wheelchair recommendations. Supplied recommendations to case management to provide wheelchair. 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 No signs of central DI Urinalysis was performed which indicated leukouria with sign of contamination Urine culture showed 50-100,000 colonies of mixed manasa Hypokalemia, controlled Patient continued on potassium supplementation Continue monitor as needed Hypertension, stable Norvasc 10 mg daily Vasotec, clonidine as needed Alcohol and cocaine abuse dependence patient previously counseled. Status post thiamine Tobacco abuse Counseled on cessation Chronic hepatitis C, chronic Patient with chronic transaminitis continue to follow monthly. liver ultrasound showed fatty infiltration Anxiety. Controlled Seroquel low-dose initiated on 05/27. Bowel regimen Justyna-Colace as needed DVT prophylaxis Sequential compression devices. Lovenox 40 mg daily. Records were reviewed, no change in clinical status or treatment plan. Discharge Planning Discharge planning per case management. Consult case management for wheelchair. Patient will likely be able to use wheelchair and be discharged prior to her being able to be discharged without the wheelchair and home. PT recommending AFO, OT recommending 31 bedside commode, shower bench, ant- wheelchair with left arm drive. Both of which recommended patient go to rehabilitation. Jaycob Rebolledo Feb 20, 2017 11:27
[2017-02-20] MEDS: ENOXAPARIN SODIUM 40 MG/0.4 ML SYRINGE SQ SCH (14:16)
[2017-02-20 20:00] VITALS: BP 130/79; PULSE 85; RESP 20; TEMP 97.4; O2SAT 97
[2017-02-20] MEDS: QUEtiapine FUMARATE 25 MG TAB PO SCH (20:36)
[2017-02-21 08:00] VITALS: BP 122/76; PULSE 78; RESP 18; TEMP 97.4; O2SAT 96
[2017-02-21] MEDS: GABAPENTIN 100 MG CAP PO SCH ×3 (09:03→18:33)
[2017-02-21] MEDS: FAMOTIDINE 20 MG TAB PO SCH ×2 (09:03→21:05)
[2017-02-21] MEDS: DOCUSATE SODIUM 50 MG/SENNA 8.6 MG TAB PO SCH ×2 (09:03→21:04)
[2017-02-21] MEDS: POTASSIUM CHLORIDE 10 MEQ CONTROLLED RELEASE TAB PO SCH (09:03)
--- NOTE | 2017-02-21 13:54 | HHI.PR ---
Subjective Remarks Patient seen and examined today in follow-up for CVA and hemiplegia. Patient denies any new complaints. No change in clinical status. Objective Vitals Vital Signs Date Time Temp Pulse Resp B/P Pulse Ox O2 Delivery O2 Flow Rate FiO2 02/21/17 08:00 97.4 78 18 122/76 96 02/20/17 20:00 97.4 85 20 130/79 97 I/O 02/20/17 02/20/17 02/20/17 02/21/17 02/21/17 02/21/17 07:00 15:00 23:00 07:00 15: 23:00 Intake Total 480 ml 730 ml 720 ml 480 ml Balance 480 ml 730 ml 720 ml 480 ml Intake Oral 480 ml 730 ml 720 ml 480 ml # Voids 2 5 2 2 1 # Bowel Movements 0 0 0 1 Objective Remarks GENERAL: Well-developed, well-nourished, in no acute distress. alert and orientated HEENT: Head is normocephalic without any lesions or masses noted right facial droop. NECK: Trachea midline no deviation. CARDIAC: Regular rhythm, regular rate. S1/S2 are heard. No murmurs gallops or rubs. LUNGS: Clear to auscultation bilaterally. No wheeze, rhonchi or rales. No use of accessory muscles on inspiration or expiration. ABDOMEN: Soft, nontender. Nondistended. Bowel sounds heard in all 4 quadrants. No organomegaly or masses. Negative rebound, negative guarding EXTREMITIES: No edema, pulses are equal bilaterally. No cyanosis or clubbing NEUROLOGY: Mood and affect appear appropriate. Dense right hemiparesis which appears to be improving in the lower extremity. Patient is able to move her right hand second third and fourth digit. 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 Venegas has evaluated the patient. The bleed was stable on repeat head CT. No surgery needed. Speech therapy has signed off and indicates patient should be on a soft diet with thin liquids Occupational therapy indicates OT at rehabilitation. Patient will need to continue occupational therapy until discharge Physical therapy indicating PT at rehabilitation. We'll need to continue physical therapy, continue right AFO, Norflex for muscle spasm --trapeze assembly for bed to facilitate functioning --Consulted OT for wheelchair recommendations. Supplied recommendations to case management to provide wheelchair. 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 No signs of central DI Urinalysis was performed which indicated leukouria with sign of contamination Urine culture showed 50-100,000 colonies of mixed manasa Hypokalemia, controlled Patient continued on potassium supplementation Continue monitor as needed Hypertension, stable Norvasc 10 mg daily Vasotec, clonidine as needed Alcohol and cocaine abuse dependence patient previously counseled. Status post thiamine Tobacco abuse Counseled on cessation Chronic hepatitis C, chronic Patient with chronic transaminitis continue to follow monthly. liver ultrasound showed fatty infiltration Anxiety. Controlled Seroquel low-dose initiated on 05/27. Bowel regimen Justyna-Colace as needed DVT prophylaxis Sequential compression devices. Lovenox 40 mg daily. Records were reviewed, no change in clinical status or treatment plan. Discharge Planning Discharge planning per case management. Consult case management for wheelchair. Patient will likely be able to use wheelchair and be discharged prior to her being able to be discharged without the wheelchair and home. PT recommending AFO, OT recommending 31 bedside commode, shower bench, ant- wheelchair with left arm drive. Both of which recommended patient go to rehabilitation. Jaycob Rebolledo February 21, 2017 13:53
[2017-02-21] MEDS: ENOXAPARIN SODIUM 40 MG/0.4 ML SYRINGE SQ SCH (15:55)
[2017-02-21 20:00] VITALS: BP 114/81; PULSE 86; RESP 20; TEMP 97.9; O2SAT 97
[2017-02-21] MEDS: MAGNESIUM HYDROXIDE SUSP 30 ML CUP PO PRN (21:04)
[2017-02-21] MEDS: QUEtiapine FUMARATE 25 MG TAB PO SCH (21:05)
[2017-02-21] MEDS: ORPHENADRINE CITRATE 100 MG SUSTAINED RELEASE TAB PO PRN (21:05)
[2017-02-22 08:00] VITALS: BP 125/87; PULSE 79; RESP 20; TEMP 96.6; O2SAT 96
[2017-02-22] MEDS: GABAPENTIN 100 MG CAP PO SCH ×3 (09:03→17:26)
[2017-02-22] MEDS: POTASSIUM CHLORIDE 10 MEQ CONTROLLED RELEASE TAB PO SCH (09:03)
[2017-02-22] MEDS: DOCUSATE SODIUM 50 MG/SENNA 8.6 MG TAB PO SCH ×2 (09:03→20:44)
[2017-02-22] MEDS: FAMOTIDINE 20 MG TAB PO SCH ×2 (09:03→20:44)
[2017-02-22 14:13] LABS: BLOOD, URINE NEG (NEG); GLUCOSE,URINE NEG (NEG); KETONE, URINE NEG (NEG); NITRITE,URINE NEG (NEG); PH, URINE 5.5 (5.0-8.5)
[2017-02-22 14:35] LABS: METHOD OF COLLECTION CLEAN CATCH; RBC, URINE 0-3 /hpf (0-3); SQUAMOUS EPITHELIAL CELL URINE 0-5 /hpf (0-5); URINE COLOR YELLOW (YELLW/STRAW)
[2017-02-22 14:36] LABS: COMMENT (UR) CULT NOT INDICATED; CULTURE IF INDICATED CULT NOT INDICATED
[2017-02-22] MEDS: ENOXAPARIN SODIUM 40 MG/0.4 ML SYRINGE SQ SCH (14:45)
--- NOTE | 2017-02-22 16:11 | HHI.PR ---
Subjective Remarks Follow-up for CVA, hemiplegia. Patient states she may have a UTI as she has had primarily increased urinary frequency for the past few days; no definite dysuria. Objective Vitals Vital Signs Date Time Temp Pulse Resp B/P Pulse Ox O2 Delivery O2 Flow Rate FiO2 02/22/17 08:00 96.6 79 20 125/87 96 02/21/17 20:00 97.9 86 20 114/81 97 I/O 02/21/17 02/21/17 02/21/17 02/22/17 02/22/17 02/22/17 07:00 15:00 23:00 07:00 15:00 23:00 Intake Total 480 ml 680 ml 680 ml 1620 ml Balance 480 ml 680 ml 680 ml 1620 ml Intake Oral 480 ml 680 ml 680 ml 1620 ml # Voids 2 4 3 3 # Bowel Movements 1 0 0 1 Objective Remarks GENERAL: Thin patient in no apparent distress. CARDIOVASCULAR: Regular rate and rhythm. RESPIRATORY: RR normal. CTAB. GASTROINTESTINAL: Abdomen soft, nontender, non-distended. NEUROLOGICAL: Awake and alert. PSYCHIATRIC: Insight and judgment normal. 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 (2) Hemiparesis affecting right side as late effect of cerebrovascular accident (CVA) ICD Code: I69.351 Status: Chronic (3) Shortness of breath ICD Code: R06.02 Status: Resolved (4) Fever ICD Code: R50.9 Status: Resolved (5) Abdominal pain ICD Code: R10.9 Status: Resolved (6) Hypertensive emergency ICD Code: I10 Status: Resolved (7) Metabolic acidosis ICD Code: E87.2 Status: Resolved (8) UTI (urinary tract infection) ICD Code: N39.0 Status: Resolved (9) Vaginal discharge ICD Code: N89.8 Status: Resolved (10) Increased urinary frequency ICD Code: R35.0 Status: Resolved Assessment and Plan Left basal ganglia bleed with 4mm MLS with dense Right hemiparesis, stable secondary to cocaine and uncontrolled hypertension Neurosurgery, Dr. Venegas has evaluated the patient. The bleed has been stable on repeat head CT. No surgery needed. Speech therapy indicated soft diet with thin liquids Occupational therapy indicates OT at rehabilitation. Patient will need to continue occupational therapy until discharge Physical therapy indicating PT at rehabilitation. We'll need to continue physical therapy, continue right AFO. Norflex for muscle spasms Abdominal pain: Resolved Leukocytosis resolved CT scan did not indicate any abnormality SOB: Resolved. Chest x-ray without acute abnormality. 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 No signs of central DI Urinalysis was performed which did not indicate any signs of infection Continue Belladonna rectal suppository Although chronic, patient complained of increased urinary frequency today. Clean-catch UA ordered and personally interpreted with no evidence of infection. Hypertension: Norvasc 10 mg daily Vasotec, clonidine as needed BP fluctuates; will monitor Hypokalemia: Resolved. Patient is on potassium replacement Monitor BMP as needed Alcohol and cocaine abuse dependence patient previously counseled. Status post thiamine Tobacco abuse Counseled on cessation Chronic hepatitis C, chronic Patient with chronic transaminitis continue to follow periodically. 11/05 AST and ALT improved from prior LFTs. Liver ultrasound showed fatty infiltration Anxiety: Controlled Seroquel low-dose initiated on 05/27. Bowel regimen: Justyna-Colace, magnesium hydroxide as needed. DVT prophylaxis Sequential compression devices. Lovenox 40 mg sq daily. Discharge Planning Occupational therapy recommends shower bench, 3-1 bedside commode for discharge. PT recommends right AFO. 02/14/17: [facility] have declined. [facility] group requested to evaluate. Elisabeth Church February 22, 2017 16:11
[2017-02-22 20:00] VITALS: BP 124/83; PULSE 83; RESP 20; TEMP 95.5; O2SAT 98
[2017-02-22] MEDS: QUEtiapine FUMARATE 25 MG TAB PO SCH (20:44)
[2017-02-22] MEDS: ORPHENADRINE CITRATE 100 MG SUSTAINED RELEASE TAB PO PRN (20:44)
[2017-02-23 08:00] VITALS: BP 136/89; PULSE 82; RESP 18; TEMP 97.8; O2SAT 92
[2017-02-23] MEDS: GABAPENTIN 100 MG CAP PO SCH ×3 (09:30→17:20)
[2017-02-23] MEDS: DOCUSATE SODIUM 50 MG/SENNA 8.6 MG TAB PO SCH ×2 (09:30→20:38)
[2017-02-23] MEDS: FAMOTIDINE 20 MG TAB PO SCH ×2 (09:30→20:38)
[2017-02-23] MEDS: POTASSIUM CHLORIDE 10 MEQ CONTROLLED RELEASE TAB PO SCH (09:30)
--- NOTE | 2017-02-23 10:37 | HHI.PR ---
Subjective Remarks "I'm fine. Everything is fine." Pt seen for follow-up of basal ganglia CVA and right hemiplegia. Pt encountered laying a bed, moving about as if she was uncomfortable yet pt denied pain/discomfort. Pt denied cough, fever, nausea, vomiting, diarrhea. Pt voiced limitations with her right hand "sometimes it works and sometimes it doesn't." She reported "the same for my right leg." No other concerns or complaints were noted or reported. Objective Vitals Vital Signs Date Time Temp Pulse Resp B/P Pulse Ox O2 Delivery O2 Flow Rate FiO2 02/23/17 08:00 97.8 82 18 136/89 92 02/22/17 20:00 95.5 83 20 124/83 98 I/O 02/22/17 02/22/17 02/22/17 02/23/17 02/23/17 02/23/17 07:00 15:00 23:00 07:00 15:00 23:00 Intake Total 680 ml 1620 ml 360 ml 120 ml Balance 680 ml 1620 ml 360 ml 120 ml Intake Oral 680 ml 1620 ml 360 ml 120 ml # Voids 3 3 5 2 # Bowel Movements 0 1 Other Results No other results ordered/obtained within the past 24 hours. Imaging No imaging results within the past 24 hours. Objective Remarks GENERAL: Pt was awake and alert, moving in the bed, seemingly uncomfortable. SKIN: Warm and dry. HEAD: Normocephalic. EYES: No scleral icterus. No injection or drainage. NECK: Supple, trachea midline. No JVD or lymphadenopathy. CARDIOVASCULAR: Regular rate and rhythm without murmurs, gallops, or rubs. RESPIRATORY: Breath sounds equal bilaterally. No accessory muscle use. GASTROINTESTINAL: Abdomen soft, non-tender, nondistended. MUSCULOSKELETAL: No cyanosis, or edema. Muscle wasting noted in right leg. PSYCHIATRIC: Pt was alert and oriented, irritable, terse in her responses as "everything is fine." Procedures None Medications and IVs Current Medications Medications (Trade) Dose Ordered Sig/Nicole Route Start Time Stop Time Status Last Admin (Neurontin) 100 mg TID PO 05/21/16 18:00 02/23/17 09:30 (SEROquel) 12.5 mg HS PO 05/27/16 21:00 02/22/17 20:44 (Pill Splitter) 1 ea UNSCH PRN OTHER 05/27/16 11:15 01/31/17 22:49 (KCl) 10 meq DAILY PO 06/06/16 10:00 02/23/17 09:30 (Mag-Al Plus Susp Liq) 30 ml Q6H PRN PO 06/09/16 13:30 11/06/16 22:31 (Tums Chew) 500 mg Q6H PRN CHEW 06/09/16 13:30 07/31/16 08:48 (Zofran Odt) 4 mg Q6H PRN PO 06/18/16 10:00 08/29/16 04:28 (Pepcid) 20 mg BID PO 08/07/16 21:00 02/23/17 09:30 (Norflex Cr) 100 mg Q12H PRN PO 08/14/16 12:00 02/22/17 20:44 (Tylenol) 650 mg Q6H PRN PO 08/29/16 08:15 10/01/16 21:36 (Norvasc) 10 mg DAILY PO 09/04/16 09:00 02/23/17 09:34 (Milk Of Magnesia Liq) 30 ml Q6H PRN PO 10/23/16 17:15 02/21/17 21:04 (Justyna-Colace) 1 tab BID PO 12/22/16 14:45 02/23/17 09:30 (Lovenox Inj) 40 mg Q24H SQ 12/22/16 15:00 02/22/17 14:45 Urinary Catheter: No Vascular Central Line Catheter: No A/P Problem List: (1) 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 (2) Hemiparesis affecting right side as late effect of cerebrovascular accident (CVA) ICD Code: I69.351 Status: Chronic (3) Shortness of breath ICD Code: R06.02 Status: Resolved (4) Fever ICD Code: R50.9 Status: Resolved (5) Abdominal pain ICD Code: R10.9 Status: Resolved (6) Hypertensive emergency ICD Code: I10 Status: Resolved (7) Metabolic acidosis ICD Code: E87.2 Status: Resolved (8) UTI (urinary tract infection) ICD Code: N39.0 Status: Resolved (9) Vaginal discharge ICD Code: N89.8 Status: Resolved (10) Increased urinary frequency ICD Code: R35.0 Status: Resolved Assessment and Plan Left basal ganglia bleed with 4mm MLS with dense Right hemiparesis, stable secondary to cocaine and uncontrolled hypertension Neurosurgery, Dr. Venegas has evaluated the patient. The bleed has been stable on repeat head CT. No surgery needed. Speech therapy indicated soft diet with thin liquids Occupational therapy indicates OT at rehabilitation. Patient will need to continue occupational therapy until discharge Physical therapy indicating PT at rehabilitation. We'll need to continue physical therapy, continue right AFO. Norflex for muscle spasms -02/23 Pt noted her right hand will evidence "some use" from time to time as is also the case for her right leg. Pt is right hand dominate. Abdominal pain: Resolved Leukocytosis resolved CT scan did not indicate any abnormality SOB: Resolved. Chest x-ray without acute abnormality. 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 No signs of central DI Urinalysis was performed which did not indicate any signs of infection Continue Belladonna rectal suppository 02/22 Although chronic, patient complained of increased urinary frequency today. Clean-catch UA ordered and personally interpreted with no evidence of infection. Hypertension: Norvasc 10 mg daily Vasotec, clonidine as needed BP fluctuates; will monitor 02/23/17: Blood pressure stable, Norvasc continues without need for supplementation. Hypokalemia: Resolved. Patient is on potassium replacement Monitor BMP as needed Alcohol and cocaine abuse dependence patient previously counseled. Status post thiamine Tobacco abuse Counseled on cessation Chronic hepatitis C, chronic Patient with chronic transaminitis continue to follow periodically. 11/05 AST and ALT improved from prior LFTs. Liver ultrasound showed fatty infiltration Anxiety: Controlled Seroquel low-dose initiated on 05/27. Bowel regimen: Justyna-Colace, magnesium hydroxide as needed. DVT prophylaxis Sequential compression devices. Lovenox 40 mg sq daily. Discharge Planning Occupational therapy recommends shower bench, 3-1 bedside commode for discharge. PT recommends right AFO. 02[facility]14/17: [facility] requested to evaluate. Naseem Rodriguez Jr. February 23, 2017 10:37
[2017-02-23] MEDS: ENOXAPARIN SODIUM 40 MG/0.4 ML SYRINGE SQ SCH (17:20)
[2017-02-23 20:00] VITALS: BP 129/83; PULSE 86; RESP 20; TEMP 97.9; O2SAT 97
[2017-02-23] MEDS: QUEtiapine FUMARATE 25 MG TAB PO SCH (20:39)
[2017-02-24] MEDS: DOCUSATE SODIUM 50 MG/SENNA 8.6 MG TAB PO SCH ×2 (09:00→20:22)
[2017-02-24] MEDS: GABAPENTIN 100 MG CAP PO SCH ×3 (09:15→16:54)
[2017-02-24] MEDS: POTASSIUM CHLORIDE 10 MEQ CONTROLLED RELEASE TAB PO SCH (09:16)
[2017-02-24] MEDS: FAMOTIDINE 20 MG TAB PO SCH ×2 (09:16→20:22)
[2017-02-24 11:26] VITALS: BP 116/85; PULSE 85; RESP 14; TEMP 96.4; O2SAT 97
--- NOTE | 2017-02-24 13:26 | HHI.PR ---
Subjective Remarks pt being followed for intracranial bleed and right hemiparesis. "Nothing has changed for the past 6 months." Pt reported no changes in the past 24 hours. She denied fever, nausea, vomiting, diarrhea, cough, shortness of breath. 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 Right leg continues to be non-functional. No other issues reported or noted. Objective Vitals Vital Signs Date Time Temp Pulse Resp B/P Pulse Ox O2 Delivery O2 Flow Rate FiO2 02/24/17 11:26 96.4 85 14 116/85 97 02/23/17 20:00 97.9 86 20 129/83 97 I/O 02/23/17 02/23/17 02/23/17 02/24/17 02/24/17 02/24/17 07:00 15:00 23:00 07:00 15:00 23:00 Intake Total 120 ml 240 ml 940 ml 240 ml Balance 120 ml 240 ml 940 ml 240 ml Intake Oral 120 ml 240 ml 840 ml 240 ml Oral Supplement 100 ml # Voids 2 2 3 Imaging No imaging obtained within the past 24 hours. Objective Remarks GENERAL: Pt was awake and alert, moving in the bed, less so than yesterday. SKIN: Warm and dry. HEAD: Normocephalic. EYES: No scleral icterus. No injection or drainage. NECK: Supple, trachea midline. No JVD or lymphadenopathy. CARDIOVASCULAR: Regular rate and rhythm without murmurs, gallops, or rubs. RESPIRATORY: Breath sounds equal bilaterally. No accessory muscle use. GASTROINTESTINAL: Abdomen soft, non-tender, nondistended. MUSCULOSKELETAL: No cyanosis, or edema. Muscle wasting noted in right leg. PSYCHIATRIC: Pt was alert and oriented, much less irritable. She did not evidence gross signs of psychosis, depression, or anxiety. Procedures None Medications and IVs Current Medications Medications (Trade) Dose Ordered Sig/Nicole Route Start Time Stop Time Status Last Admin (Neurontin) 100 mg TID PO 05/21/16 18:00 02/24/17 09:15 (SEROquel) 12.5 mg HS PO 05/27/16 21:00 02/23/17 20:39 (Pill Splitter) 1 ea UNSCH PRN OTHER 05/27/16 11:15 01/31/17 22:49 (KCl) 10 meq DAILY PO 06/06/16 10:00 02/24/17 09:16 (Mag-Al Plus Susp Liq) 30 ml Q6H PRN PO 06/09/16 13:30 11/06/16 22:31 (Tums Chew) 500 mg Q6H PRN CHEW 06/09/16 13:30 07/31/16 08:48 (Zofran Odt) 4 mg Q6H PRN PO 06/18/16 10:00 08/29/16 04:28 (Pepcid) 20 mg BID PO 08/07/16 21:00 02/24/17 09:16 (Norflex Cr) 100 mg Q12H PRN PO 08/14/16 12:00 02/22/17 20:44 (Tylenol) 650 mg Q6H PRN PO 08/29/16 08:15 10/01/16 21:36 (Norvasc) 10 mg DAILY PO 09/04/16 09:00 02/24/17 09:15 (Milk Of Magnesia Liq) 30 ml Q6H PRN PO 10/23/16 17:15 02/21/17 21:04 (Justyna-Colace) 1 tab BID PO 12/22/16 14:45 02/23/17 20:38 (Lovenox Inj) 40 mg Q24H SQ 12/22/16 15:00 02/23/17 17:20 Urinary Catheter: No Vascular Central Line Catheter: No A/P Problem List: (1) 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 (2) Hemiparesis affecting right side as late effect of cerebrovascular accident (CVA) ICD Code: I69.351 Status: Chronic (3) Shortness of breath ICD Code: R06.02 Status: Resolved (4) Fever ICD Code: R50.9 Status: Resolved (5) Abdominal pain ICD Code: R10.9 Status: Resolved (6) Hypertensive emergency ICD Code: I10 Status: Resolved (7) Metabolic acidosis ICD Code: E87.2 Status: Resolved (8) UTI (urinary tract infection) ICD Code: N39.0 Status: Resolved (9) Vaginal discharge ICD Code: N89.8 Status: Resolved (10) Increased urinary frequency ICD Code: R35.0 Status: Resolved Assessment and Plan Left basal ganglia bleed with 4mm MLS with dense Right hemiparesis, stable secondary to cocaine and uncontrolled hypertension Neurosurgery, Dr. Venegas has evaluated the patient. The bleed has been stable on repeat head CT. No surgery needed. Speech therapy indicated soft diet with thin liquids Occupational therapy indicates OT at rehabilitation. Patient will need to continue occupational therapy until discharge Physical therapy indicating PT at rehabilitation. We'll need to continue physical therapy, continue right AFO. Norflex for muscle spasms -02/23 Pt noted her right hand will evidence "some use" from time to time as is also the case for her right leg. Pt is right hand dominate. -02/24/17 Pt continues to require physical therapy. Right hemiplegia remains. Abdominal pain: Resolved Leukocytosis resolved CT scan did not indicate any abnormality SOB: Resolved. Chest x-ray without acute abnormality. 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 No signs of central DI Urinalysis was performed which did not indicate any signs of infection Continue Belladonna rectal suppository 02/22 Although chronic, patient complained of increased urinary frequency today. Clean-catch UA ordered and personally interpreted with no evidence of infection. Hypertension: Norvasc 10 mg daily Vasotec, clonidine as needed BP fluctuates; will monitor 02/23/17: Blood pressure stable, Norvasc continues without need for supplementation. Hypokalemia: Resolved. Patient is on potassium replacement Monitor BMP as needed Alcohol and cocaine abuse dependence patient previously counseled. Status post thiamine Tobacco abuse Counseled on cessation Chronic hepatitis C, chronic Patient with chronic transaminitis continue to follow periodically. 11/05 AST and ALT improved from prior LFTs. Liver ultrasound showed fatty infiltration Anxiety: Controlled Seroquel low-dose initiated on 05/27. Bowel regimen: Justyna-Colace, magnesium hydroxide as needed. DVT prophylaxis Sequential compression devices. Lovenox 40 mg sq daily. Discharge Planning Occupational therapy recommends shower bench, 3-1 bedside commode for discharge. PT recommends right AFO. 02/14/17: [facility] have declined. [facility] group requested to evaluate. Naseem Rodriguez Jr. February 24, 2017 13:26
[2017-02-24] MEDS: ENOXAPARIN SODIUM 40 MG/0.4 ML SYRINGE SQ SCH (14:13)
[2017-02-24 20:00] VITALS: BP 123/80; PULSE 90; RESP 20; TEMP 97.1; O2SAT 96
[2017-02-24] MEDS: QUEtiapine FUMARATE 25 MG TAB PO SCH (20:22)
[2017-02-25 09:08] VITALS: BP 128/88; PULSE 78; RESP 18; TEMP 98.1; O2SAT 93
[2017-02-25] MEDS: POTASSIUM CHLORIDE 10 MEQ CONTROLLED RELEASE TAB PO SCH (09:11)
[2017-02-25] MEDS: DOCUSATE SODIUM 50 MG/SENNA 8.6 MG TAB PO SCH ×2 (09:11→21:53)
[2017-02-25] MEDS: GABAPENTIN 100 MG CAP PO SCH ×3 (09:11→17:55)
[2017-02-25] MEDS: FAMOTIDINE 20 MG TAB PO SCH ×2 (09:11→21:54)
--- NOTE | 2017-02-25 11:33 | HHI.PR ---
Subjective Remarks "I'm fine." Pt being followed for issues subsequent to her intracranial bleed. Pt was reported to have had abdominal pain during yesterday's PT session. She attributed it to "needing to go to the bathroom." Pt reported her appetite is good as she was encountered eating breakfast. Pt denied fever, cough, shortness of breath, nausea, vomiting, diarrhea. No other issues or concerns raised by pt. Objective Vitals Vital Signs Date Time Temp Pulse Resp B/P Pulse Ox O2 Delivery O2 Flow Rate FiO2 02/25/17 09:08 98.1 78 18 128/88 93 02/24/17 20:00 97.1 90 20 123/80 96 02/24/17 11:26 96.4 85 14 116/85 97 I/O 02/24/17 02/24/17 02/24/17 02/25/17 02/25/17 02/25/17 07:00 15:00 23:00 07:00 15:00 23:00 Intake Total 240 ml 720 ml 480 ml 480 ml Balance 240 ml 720 ml 480 ml 480 ml Intake Oral 240 ml 720 ml 480 ml 480 ml # Voids 3 1 2 # Bowel Movements 0 0 Imaging No imaging ordered or resulted within past 24 hours. Objective Remarks GENERAL: Pt was awake and alert, laying a bed, eating breakfast.. SKIN: Warm and dry. HEAD: Normocephalic. EYES: No scleral icterus. No injection or drainage. NECK: Supple, trachea midline. No JVD or lymphadenopathy. CARDIOVASCULAR: Regular rate and rhythm without murmurs, gallops, or rubs. RESPIRATORY: Breath sounds equal bilaterally. No accessory muscle use. GASTROINTESTINAL: Abdomen soft, non-tender, nondistended. MUSCULOSKELETAL: No cyanosis, or edema. Muscle wasting noted in right leg. PSYCHIATRIC: Pt was alert and oriented. She did not evidence gross signs of psychosis, depression, or anxiety. Procedures None Medications and IVs Current Medications Medications (Trade) Dose Ordered Sig/Nicole Route Start Time Stop Time Status Last Admin (Neurontin) 100 mg TID PO 05/21/16 18:00 02/25/17 09:11 (SEROquel) 12.5 mg HS PO 05/27/16 21:00 02/24/17 20:22 (Pill Splitter) 1 ea UNSCH PRN OTHER 8/4/16 11:15 01/31/17 22:49 (KCl) 10 meq DAILY PO 06/06/16 10:00 02/25/17 09:11 (Mag-Al Plus Susp Liq) 30 ml Q6H PRN PO 06/09/16 13:30 11/06/16 22:31 (Tums Chew) 500 mg Q6H PRN CHEW 06/09/16 13:30 07/31/16 08:48 (Zofran Odt) 4 mg Q6H PRN PO 06/18/16 10:00 08/29/16 04:28 (Pepcid) 20 mg BID PO 08/07/16 21:00 02/25/17 09:11 (Norflex Cr) 100 mg Q12H PRN PO 08/14/16 12:00 02/22/17 20:44 (Tylenol) 650 mg Q6H PRN PO 08/29/16 08:15 10/01/16 21:36 (Norvasc) 10 mg DAILY PO 09/04/16 09:00 02/25/17 09:11 (Milk Of Magnesia Liq) 30 ml Q6H PRN PO 10/23/16 17:15 02/21/17 21:04 (Justyna-Colace) 1 tab BID PO 12/22/16 14:45 02/25/17 09:11 (Lovenox Inj) 40 mg Q24H SQ 12/22/16 15:00 02/24/17 14:13 Urinary Catheter: No Vascular Central Line Catheter: No A/P Problem List: (1) 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 (2) Hemiparesis affecting right side as late effect of cerebrovascular accident (CVA) ICD Code: I69.351 Status: Chronic (3) Shortness of breath ICD Code: R06.02 Status: Resolved (4) Fever ICD Code: R50.9 Status: Resolved (5) Abdominal pain ICD Code: R10.9 Status: Resolved (6) Hypertensive emergency ICD Code: I10 Status: Resolved (7) Metabolic acidosis ICD Code: E87.2 Status: Resolved (8) UTI (urinary tract infection) ICD Code: N39.0 Status: Resolved (9) Vaginal discharge ICD Code: N89.8 Status: Resolved (10) Increased urinary frequency ICD Code: R35.0 Status: Resolved Assessment and Plan Left basal ganglia bleed with 4mm MLS with dense Right hemiparesis, stable secondary to cocaine and uncontrolled hypertension Neurosurgery, Dr. Venegas has evaluated the patient. The bleed has been stable on repeat head CT. No surgery needed. Speech therapy indicated soft diet with thin liquids Occupational therapy indicates OT at rehabilitation. Patient will need to continue occupational therapy until discharge Physical therapy indicating PT at rehabilitation. We'll need to continue physical therapy, continue right AFO. Norflex for muscle spasms -02/23 Pt noted her right hand will evidence "some use" from time to time as is also the case for her right leg. Pt is right hand dominate. -02/24/17 Pt continues to require physical therapy. Right hemiplegia remains. Abdominal pain: Resolved Leukocytosis resolved CT scan did not indicate any abnormality SOB: Resolved. Chest x-ray without acute abnormality. 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 No signs of central DI Urinalysis was performed which did not indicate any signs of infection Continue Belladonna rectal suppository 02/22 Although chronic, patient complained of increased urinary frequency today. Clean-catch UA ordered and personally interpreted with no evidence of infection. Hypertension: Norvasc 10 mg daily Vasotec, clonidine as needed BP fluctuates; will monitor 02/23/17: Blood pressure stable, Norvasc continues without need for supplementation. Hypokalemia: Resolved. Patient is on potassium replacement Monitor BMP as needed Alcohol and cocaine abuse dependence patient previously counseled. Status post thiamine Tobacco abuse Counseled on cessation Chronic hepatitis C, chronic Patient with chronic transaminitis continue to follow periodically. 11/05 AST and ALT improved from prior LFTs. Liver ultrasound showed fatty infiltration Anxiety: Controlled Seroquel low-dose initiated on 05/27. Bowel regimen: Justyna-Colace, magnesium hydroxide as needed. DVT prophylaxis Sequential compression devices. Lovenox 40 mg sq daily. Discharge Planning Occupational therapy recommends shower bench, 3-1 bedside commode for discharge. PT recommends right AFO. 02/14/17: [facility] and [facility] have declined. [facility] requested to evaluate. Naseem Rodriguez Jr. February 25, 2017 11:33
[2017-02-25] MEDS: ENOXAPARIN SODIUM 40 MG/0.4 ML SYRINGE SQ SCH (15:03)
[2017-02-25 20:00] VITALS: BP 120/78; PULSE 88; RESP 20; TEMP 97.4; O2SAT 99
[2017-02-25] MEDS: QUEtiapine FUMARATE 25 MG TAB PO SCH (21:53)
[2017-02-26 08:00] VITALS: BP 127/83; PULSE 83; RESP 18; TEMP 97; O2SAT 96
[2017-02-26] MEDS: GABAPENTIN 100 MG CAP PO SCH ×3 (09:29→18:18)
[2017-02-26] MEDS: FAMOTIDINE 20 MG TAB PO SCH ×2 (09:29→20:36)
[2017-02-26] MEDS: POTASSIUM CHLORIDE 10 MEQ CONTROLLED RELEASE TAB PO SCH (09:29)
[2017-02-26] MEDS: DOCUSATE SODIUM 50 MG/SENNA 8.6 MG TAB PO SCH ×2 (09:29→20:36)
--- NOTE | 2017-02-26 10:12 | HHI.PR ---
Subjective Remarks Follow-up for ICH, R hemiparesis. Patient still has increased urinary frequency. Objective Vitals Vital Signs Date Time Temp Pulse Resp B/P Pulse Ox O2 Delivery O2 Flow Rate FiO2 02/26/17 08:00 97.0 83 18 127/83 96 02/25/17 20:00 97.4 88 20 120/78 99 I/O 02/25/17 02/25/17 02/25/17 02/26/17 02/26/17 02/26/17 07:00 15:00 23:00 07:00 15:00 23:00 Intake Total 480 ml 1810 ml 480 ml Balance 480 ml 1810 ml 480 ml Intake Oral 480 ml 1810 ml 480 ml # Voids 2 6 2 # Bowel Movements 0 1 0 Objective Remarks GENERAL: Thin patient in no apparent distress. CARDIOVASCULAR: Regular rate and rhythm. RESPIRATORY: RR normal. CTAB. GASTROINTESTINAL: Abdomen soft, nontender, non-distended. NEUROLOGICAL: Awake and alert. PSYCHIATRIC: Insight and judgment normal. 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 (2) Hemiparesis affecting right side as late effect of cerebrovascular accident (CVA) ICD Code: I69.351 Status: Chronic (3) Shortness of breath ICD Code: R06.02 Status: Resolved (4) Fever ICD Code: R50.9 Status: Resolved (5) Abdominal pain ICD Code: R10.9 Status: Resolved (6) Hypertensive emergency ICD Code: I10 Status: Resolved (7) Metabolic acidosis ICD Code: E87.2 Status: Resolved (8) UTI (urinary tract infection) ICD Code: N39.0 Status: Resolved (9) Vaginal discharge ICD Code: N89.8 Status: Resolved (10) Increased urinary frequency ICD Code: R35.0 Status: Resolved Assessment and Plan Left basal ganglia bleed with 4mm MLS with dense Right hemiparesis, stable secondary to cocaine and uncontrolled hypertension Neurosurgery, Dr. Venegas has evaluated the patient. The bleed has been stable on repeat head CT. No surgery needed. Speech therapy indicated soft diet with thin liquids Occupational therapy indicates OT at rehabilitation. Patient will need to continue occupational therapy until discharge Physical therapy indicating PT at rehabilitation. We'll need to continue physical therapy, continue right AFO. Norflex for muscle spasms Abdominal pain: Resolved Leukocytosis resolved CT scan did not indicate any abnormality SOB: Resolved. Chest x-ray without acute abnormality. 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 No signs of central DI Urinalysis was performed which did not indicate any signs of infection Continue Belladonna rectal suppository Although chronic patient admitted to increased frequency on 02/22. UA clean catch at that time without infection. Remains afebrile. 02/26: 8 voids documented over the last 24 hours which has been the patient's norm. She states it is large volume. Will have nursing measure urine output. Hypertension: Norvasc 10 mg daily Vasotec, clonidine as needed BP fluctuates; will monitor Hypokalemia: Resolved. Patient is on potassium replacement Monitor BMP as needed Alcohol and cocaine abuse dependence patient previously counseled. Status post thiamine Tobacco abuse Counseled on cessation Chronic hepatitis C, chronic Patient with chronic transaminitis continue to follow periodically. 11/05 AST and ALT improved from prior LFTs. Liver ultrasound showed fatty infiltration Anxiety: Controlled Seroquel low-dose initiated on 05/27. Bowel regimen: Justyna-Colace, magnesium hydroxide as needed. DVT prophylaxis Sequential compression devices. Lovenox 40 mg sq daily. Discharge Planning Occupational therapy recommends shower bench, 3-1 bedside commode for discharge. PT recommends right AFO. 02/14/17: [facility] [place] [facility] and [facility] have declined. [facility] group requested to evaluate. Elisabeth Church February 26, 2017 10:12
[2017-02-26] MEDS: ENOXAPARIN SODIUM 40 MG/0.4 ML SYRINGE SQ SCH (15:46)
[2017-02-26 20:00] VITALS: BP 137/86; PULSE 86; RESP 19; TEMP 97; O2SAT 98
[2017-02-26] MEDS: QUEtiapine FUMARATE 25 MG TAB PO SCH (20:36)
[2017-02-27 08:00] VITALS: BP 140/85; PULSE 82; RESP 19; TEMP 97.1; O2SAT 96
[2017-02-27] MEDS: DOCUSATE SODIUM 50 MG/SENNA 8.6 MG TAB PO SCH ×2 (09:47→20:07)
[2017-02-27] MEDS: POTASSIUM CHLORIDE 10 MEQ CONTROLLED RELEASE TAB PO SCH (09:47)
[2017-02-27] MEDS: FAMOTIDINE 20 MG TAB PO SCH ×2 (09:47→20:07)
[2017-02-27] MEDS: GABAPENTIN 100 MG CAP PO SCH ×3 (09:47→17:59)
--- NOTE | 2017-02-27 10:22 | HHI.PR ---
Subjective Remarks F/u for CVA and right sided hemiplegia. She still admits to increased urinary frequency although this is a chronic issue. Objective Vitals Vital Signs Date Time Temp Pulse Resp B/P Pulse Ox O2 Delivery O2 Flow Rate FiO2 02/27/17 08:00 97.1 82 19 140/85 96 02/26/17 20:00 97.0 86 19 137/86 98 I/O 02/26/17 02/26/17 02/26/17 02/27/17 02/27/17 02/27/17 07:00 15:00 23:00 07:00 15:00 23:00 Intake Total 480 ml 960 ml 840 ml 120 ml Output Total 825 ml 375 ml Balance 480 ml 960 ml 15 ml -255 ml Intake Oral 480 ml 960 ml 840 ml 120 ml Output Urine Total 825 ml 375 ml # Voids 2 4 # Bowel Movements 0 0 0 Objective Remarks GENERAL: Thin patient in no apparent distress. CARDIOVASCULAR: Regular rate and rhythm. RESPIRATORY: RR normal. CTAB. GASTROINTESTINAL: Abdomen soft, nontender, non-distended. NEUROLOGICAL: Awake and alert. PSYCHIATRIC: Insight and judgment normal. 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 (2) Hemiparesis affecting right side as late effect of cerebrovascular accident (CVA) ICD Code: I69.351 Status: Chronic (3) Shortness of breath ICD Code: R06.02 Status: Resolved (4) Fever ICD Code: R50.9 Status: Resolved (5) Abdominal pain ICD Code: R10.9 Status: Resolved (6) Hypertensive emergency ICD Code: I10 Status: Resolved (7) Metabolic acidosis ICD Code: E87.2 Status: Resolved (8) UTI (urinary tract infection) ICD Code: N39.0 Status: Resolved (9) Vaginal discharge ICD Code: N89.8 Status: Resolved (10) Increased urinary frequency ICD Code: R35.0 Status: Resolved Assessment and Plan Left basal ganglia bleed with 4mm MLS with dense Right hemiparesis, stable secondary to cocaine and uncontrolled hypertension Neurosurgery, Dr. Venegas has evaluated the patient. The bleed has been stable on repeat head CT. No surgery needed. Speech therapy indicated soft diet with thin liquids Occupational therapy indicates OT at rehabilitation. Patient will need to continue occupational therapy until discharge Physical therapy indicating PT at rehabilitation. We'll need to continue physical therapy, continue right AFO. Norflex for muscle spasms Abdominal pain: Resolved Leukocytosis resolved CT scan did not indicate any abnormality SOB: Resolved. Chest x-ray without acute abnormality. 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 No signs of central DI Urinalysis was performed which did not indicate any signs of infection Continue Belladonna rectal suppository Although chronic patient admitted to increased frequency on 02/22. UA clean catch at that time without infection. Remains afebrile. 02/27: Normal urine output 1200 mL with a fluid intake of 1920 mL over the past 24 hours. Hypertension: Norvasc 10 mg daily Vasotec, clonidine as needed BP fluctuates; will monitor Hypokalemia: Resolved. Patient is on potassium replacement Monitor BMP as needed Alcohol and cocaine abuse dependence patient previously counseled. Status post thiamine Tobacco abuse Counseled on cessation Chronic hepatitis C, chronic Patient with chronic transaminitis continue to follow periodically. 11/05 AST and ALT improved from prior LFTs. Liver ultrasound showed fatty infiltration Anxiety: Controlled Seroquel low-dose initiated on 05/27. Bowel regimen: Justyna-Colace, magnesium hydroxide as needed. DVT prophylaxis Sequential compression devices. Lovenox 40 mg sq daily. Discharge Planning Occupational therapy recommends shower bench, 3-1 bedside commode for discharge. PT recommends right AFO. 02/14/17: [facility] [facility] and [facility] have declined. [facility] requested to evaluate. Elisabeth Church February 27, 2017 10:22
[2017-02-27] MEDS: ENOXAPARIN SODIUM 40 MG/0.4 ML SYRINGE SQ SCH (15:13)
[2017-02-27 20:04] VITALS: BP 126/82; PULSE 87; RESP 18; TEMP 97.7
[2017-02-27] MEDS: QUEtiapine FUMARATE 25 MG TAB PO SCH (20:07)
[2017-02-28 08:00] VITALS: BP 126/86; PULSE 80; RESP 18; TEMP 98.3; O2SAT 95
[2017-02-28] MEDS: FAMOTIDINE 20 MG TAB PO SCH ×2 (09:20→20:32)
[2017-02-28] MEDS: DOCUSATE SODIUM 50 MG/SENNA 8.6 MG TAB PO SCH ×2 (09:20→20:32)
[2017-02-28] MEDS: GABAPENTIN 100 MG CAP PO SCH ×3 (09:21→19:28)
[2017-02-28] MEDS: POTASSIUM CHLORIDE 10 MEQ CONTROLLED RELEASE TAB PO SCH (09:21)
--- NOTE | 2017-02-28 10:30 | HHI.PR ---
Subjective Remarks Follow up for CVA, right sided hemiparesis, increased urinary frequency. No acute complaints today. Objective Vitals Vital Signs Date Time Temp Pulse Resp B/P Pulse Ox O2 Delivery O2 Flow Rate FiO2 02/28/17 08:00 98.3 80 18 126/86 95 02/27/17 20:04 97.7 87 18 126/82 I/O 02/27/17 02/27/17 02/27/17 02/28/17 02/28/17 02/28/17 06:59 14:59 22:59 06:59 14:59 22:59 Intake Total 120 ml 1240 ml 240 ml 320 ml Output Total 375 ml 850 ml 350 ml 400 ml Balance -255 ml 390 ml -110 ml -80 ml Intake Oral 120 ml 1240 ml 240 ml 320 ml Output Urine Total 375 ml 850 ml 350 ml 400 ml # Voids 1 1 # Bowel Movements 0 Objective Remarks GENERAL: Thin patient in no apparent distress. CARDIOVASCULAR: Regular rate and rhythm. RESPIRATORY: RR normal. CTAB. GASTROINTESTINAL: Abdomen soft, nontender, non-distended. NEUROLOGICAL: Awake and alert. PSYCHIATRIC: Insight and judgment normal. 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 (2) Hemiparesis affecting right side as late effect of cerebrovascular accident (CVA) ICD Code: I69.351 Status: Chronic (3) Shortness of breath ICD Code: R06.02 Status: Resolved (4) Fever ICD Code: R50.9 Status: Resolved (5) Abdominal pain ICD Code: R10.9 Status: Resolved (6) Hypertensive emergency ICD Code: I10 Status: Resolved (7) Metabolic acidosis ICD Code: E87.2 Status: Resolved (8) UTI (urinary tract infection) ICD Code: N39.0 Status: Resolved (9) Vaginal discharge ICD Code: N89.8 Status: Resolved (10) Increased urinary frequency ICD Code: R35.0 Status: Resolved Assessment and Plan Left basal ganglia bleed with 4mm MLS with dense Right hemiparesis, stable secondary to cocaine and uncontrolled hypertension Neurosurgery, Dr. Venegas has evaluated the patient. The bleed has been stable on repeat head CT. No surgery needed. Speech therapy indicated soft diet with thin liquids Occupational therapy indicates OT at rehabilitation. Patient will need to continue occupational therapy until discharge Physical therapy indicating PT at rehabilitation. We'll need to continue physical therapy, continue right AFO. Norflex for muscle spasms Abdominal pain: Resolved Leukocytosis resolved CT scan did not indicate any abnormality SOB: Resolved. Chest x-ray without acute abnormality. 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 No signs of central DI Urinalysis was performed which did not indicate any signs of infection Continue Belladonna rectal suppository Although chronic patient admitted to increased frequency on 02/22. UA clean catch at that time without infection. Remains afebrile. 02/28: Normal urine output. Hypertension: Norvasc 10 mg daily Vasotec, clonidine as needed BP fluctuates; will monitor Hypokalemia: Resolved. Patient is on potassium replacement Monitor BMP as needed Alcohol and cocaine abuse dependence patient previously counseled. Status post thiamine Tobacco abuse Counseled on cessation Chronic hepatitis C, chronic Patient with chronic transaminitis continue to follow periodically. 11/05 AST and ALT improved from prior LFTs. Liver ultrasound showed fatty infiltration Anxiety: Controlled Seroquel low-dose initiated on 05/27. Bowel regimen: Justyna-Colace, magnesium hydroxide as needed. DVT prophylaxis Sequential compression devices. Lovenox 40 mg sq daily. Discharge Planning Occupational therapy recommends shower bench, 3-1 bedside commode for discharge. PT recommends right AFO. 02/14/17: [place] [facility] [place] and [facility] have declined. [facility] group requested to evaluate. Elisabeth Church February 28, 2017 10:30
[2017-02-28] MEDS: ENOXAPARIN SODIUM 40 MG/0.4 ML SYRINGE SQ SCH (15:23)
[2017-02-28 20:00] VITALS: BP 119/80; PULSE 89; RESP 20; TEMP 98.3; O2SAT 95
[2017-02-28] MEDS: QUEtiapine FUMARATE 25 MG TAB PO SCH (20:32)
[2017-03-01 08:00] VITALS: BP 130/87; PULSE 80; RESP 19; TEMP 98; O2SAT 95
[2017-03-01] MEDS: DOCUSATE SODIUM 50 MG/SENNA 8.6 MG TAB PO SCH ×2 (08:41→20:28)
[2017-03-01] MEDS: FAMOTIDINE 20 MG TAB PO SCH ×2 (08:41→20:27)
[2017-03-01] MEDS: POTASSIUM CHLORIDE 10 MEQ CONTROLLED RELEASE TAB PO SCH (08:41)
[2017-03-01] MEDS: GABAPENTIN 100 MG CAP PO SCH ×3 (08:41→18:27)
--- NOTE | 2017-03-01 10:07 | HHI.PR ---
Subjective Remarks Patient seen and examined today in follow-up for CVA and hemiplegia. Patient denies any new complaints. Patient feels that she has had increased urinary frequency. She states that she is urinating approximately 10 times a day. Urinalysis does not indicate any acute infection. Input/output indicates euvolemia Objective Vitals Vital Signs Date Time Temp Pulse Resp B/P Pulse Ox O2 Delivery O2 Flow Rate FiO2 03/01/17 08:00 98.0 80 19 130/87 95 02/28/17 20:00 98.3 89 20 119/80 95 I/O 02/28/17 02/28/17 02/28/17 03/01/17 03/01/17 03/01/17 07:00 15:00 23:00 07:00 15:00 23:00 Intake Total 320 ml 220 ml 460 ml Output Total 400 ml 250 ml 275 ml Balance -80 ml -30 ml 185 ml Intake Oral 320 ml 220 ml 460 ml Output Urine Total 400 ml 250 ml 275 ml # Voids 1 3 1 2 # Bowel Movements 1 0 0 Objective Remarks GENERAL: Well-developed, well-nourished, in no acute distress. alert and orientated HEENT: Head is normocephalic without any lesions or masses noted right facial droop. NECK: Trachea midline no deviation. CARDIAC: Regular rhythm, regular rate. S1/S2 are heard. No murmurs gallops or rubs. LUNGS: Clear to auscultation bilaterally. No wheeze, rhonchi or rales. No use of accessory muscles on inspiration or expiration. ABDOMEN: Soft, nontender. Nondistended. Bowel sounds heard in all 4 quadrants. No organomegaly or masses. Negative rebound, negative guarding EXTREMITIES: No edema, pulses are equal bilaterally. No cyanosis or clubbing NEUROLOGY: Mood and affect appear appropriate. Dense right hemiparesis which appears to be improving in the lower extremity. Patient is able to move her right hand second third and fourth digit. 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 Venegas has evaluated the patient. The bleed was stable on repeat head CT. No surgery needed. Speech therapy has signed off and indicates patient should be on a soft diet with thin liquids Occupational therapy indicates OT at rehabilitation. Patient will need to continue occupational therapy until discharge Physical therapy indicating PT at rehabilitation. We'll need to continue physical therapy, continue right AFO, Norflex for muscle spasm --trapeze assembly for bed to facilitate functioning --Consulted OT for wheelchair recommendations. Supplied recommendations to case management to provide wheelchair. reconsulted case management to supply wheelchair Patient will likely be able to use a wheelchair and be discharged prior to ambulating out of the hospital or funding available for rehabilitation Left hand third digit pain X-ray shows arthritic changes, nothing acute Counseled patient on arthritic conditions that she needs to be more active and increase activity may improve the pain Right arm pain, controlled Continue Neurontin for right arm neuropathic pain Dysuria, urinary frequency, BNP was performed, sodium level was normal. No signs of central DI Urinalysis was performed which did not indicate any acute infection Input/output indicating Euvolemia Hypokalemia, controlled Patient continued on potassium supplementation Continue monitor as needed Hypertension, stable Norvasc 10 mg daily Vasotec, clonidine as needed Alcohol and cocaine abuse dependence patient previously counseled. Status post thiamine Tobacco abuse Counseled on cessation Chronic hepatitis C, chronic Patient with chronic transaminitis continue to follow monthly. liver ultrasound showed fatty infiltration Anxiety. Controlled Seroquel low-dose initiated on 05/27. Bowel regimen Justyna-Colace as needed DVT prophylaxis Sequential compression devices. Lovenox 40 mg daily. Discharge Planning Discharge planning per case management. Consult case management for wheelchair. Patient will likely be able to use wheelchair and be discharged prior to her being able to be discharged without the wheelchair and home. PT recommending AFO, OT recommending 31 bedside commode, shower bench, ant- wheelchair with left arm drive. Both of which recommended patient go to rehabilitation. Jaycob Rebolledo March 01, 2017 10:07
[2017-03-01] MEDS: ENOXAPARIN SODIUM 40 MG/0.4 ML SYRINGE SQ SCH (15:03)
[2017-03-01 20:00] VITALS: BP 131/87; PULSE 89; RESP 20; TEMP 97.7; O2SAT 96
[2017-03-01] MEDS: QUEtiapine FUMARATE 25 MG TAB PO SCH (20:27)
[2017-03-02 08:00] VITALS: BP 130/79; PULSE 84; RESP 18; TEMP 97.9; O2SAT 96
[2017-03-02] MEDS: POTASSIUM CHLORIDE 10 MEQ CONTROLLED RELEASE TAB PO SCH (08:19)
[2017-03-02] MEDS: GABAPENTIN 100 MG CAP PO SCH ×3 (08:19→17:52)
[2017-03-02] MEDS: FAMOTIDINE 20 MG TAB PO SCH ×2 (08:19→20:36)
[2017-03-02] MEDS: DOCUSATE SODIUM 50 MG/SENNA 8.6 MG TAB PO SCH ×2 (08:19→20:36)
--- NOTE | 2017-03-02 10:09 | HHI.PR ---
Subjective Remarks Patient seen and examined today for follow-up on CVA and hemiplegia. Patient denies any new complaints. No change in clinical status. Objective Vitals Vital Signs Date Time Temp Pulse Resp B/P Pulse Ox O2 Delivery O2 Flow Rate FiO2 03/02/17 08:00 97.9 84 18 130/79 96 03/01/17 20:00 97.7 89 20 131/87 96 I/O 03/01/17 03/01/17 03/01/17 03/02/17 03/02/17 03/02/17 07:00 15:00 23:00 07:00 15:00 23:00 Intake Total 460 ml 700 ml 480 ml Output Total 275 ml 350 ml 600 ml 450 ml Balance 185 ml 350 ml -120 ml -450 ml Intake Oral 460 ml 700 ml 480 ml Output Urine Total 275 ml 350 ml 600 ml 450 ml # Voids 2 9 # Bowel Movements 0 1 0 0 Objective Remarks GENERAL: Well-developed, well-nourished, in no acute distress. alert and orientated HEENT: Head is normocephalic without any lesions or masses noted right facial droop. NECK: Trachea midline no deviation. CARDIAC: Regular rhythm, regular rate. S1/S2 are heard. No murmurs gallops or rubs. LUNGS: Clear to auscultation bilaterally. No wheeze, rhonchi or rales. No use of accessory muscles on inspiration or expiration. ABDOMEN: Soft, nontender. Nondistended. Bowel sounds heard in all 4 quadrants. No organomegaly or masses. Negative rebound, negative guarding EXTREMITIES: No edema, pulses are equal bilaterally. No cyanosis or clubbing NEUROLOGY: Mood and affect appear appropriate. Dense right hemiparesis which appears to be improving in the lower extremity. Patient is able to move her right hand second third and fourth digit. 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 Venegas has evaluated the patient. The bleed was stable on repeat head CT. No surgery needed. Speech therapy has signed off and indicates patient should be on a soft diet with thin liquids Occupational therapy indicates OT at rehabilitation. Patient will need to continue occupational therapy until discharge Physical therapy indicating PT at rehabilitation. We'll need to continue physical therapy, continue right AFO, Norflex for muscle spasm --trapeze assembly for bed to facilitate functioning --Consulted OT for wheelchair recommendations. Supplied recommendations to case management to provide wheelchair. 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 No signs of central DI Urinalysis was performed which did not indicate any acute infection Input/output indicating Euvolemia Hypokalemia, controlled Patient continued on potassium supplementation Continue monitor as needed Hypertension, stable Norvasc 10 mg daily Vasotec, clonidine as needed Alcohol and cocaine abuse dependence patient previously counseled. Status post thiamine Tobacco abuse Counseled on cessation Chronic hepatitis C, chronic Patient with chronic transaminitis continue to follow monthly. liver ultrasound showed fatty infiltration Anxiety. Controlled Seroquel low-dose initiated on 05/27. Bowel regimen Justyna-Colace as needed DVT prophylaxis Sequential compression devices. Lovenox 40 mg daily. Records reviewed, no change in clinical status or treatment plan Discharge Planning Discharge planning per case management. Consult case management for wheelchair. Patient will likely be able to use wheelchair and be discharged prior to her being able to be discharged without the wheelchair and home. PT recommending AFO, OT recommending 31 bedside commode, shower bench, ant- wheelchair with left arm drive. Both of which recommended patient go to rehabilitation. Jaycob Rebolledo March 02, 2017 10:09
[2017-03-02] MEDS: ENOXAPARIN SODIUM 40 MG/0.4 ML SYRINGE SQ SCH (17:37)
[2017-03-02 20:00] VITALS: BP 149/86; PULSE 87; RESP 22; TEMP 98.7; O2SAT 96
[2017-03-02] MEDS: QUEtiapine FUMARATE 25 MG TAB PO SCH (20:36)
[2017-03-03 08:00] VITALS: BP 132/77; PULSE 77; RESP 16; TEMP 98; O2SAT 96
[2017-03-03] MEDS: DOCUSATE SODIUM 50 MG/SENNA 8.6 MG TAB PO SCH ×2 (08:14→21:21)
[2017-03-03] MEDS: FAMOTIDINE 20 MG TAB PO SCH ×2 (08:14→21:21)
[2017-03-03] MEDS: GABAPENTIN 100 MG CAP PO SCH ×3 (08:14→15:26)
[2017-03-03] MEDS: POTASSIUM CHLORIDE 10 MEQ CONTROLLED RELEASE TAB PO SCH (08:14)
--- NOTE | 2017-03-03 10:27 | HHI.PR ---
Subjective Remarks Patient seen and examined today for follow-up on CVA and hemiplegia. Patient states that she has no new complaints. She does want to go home, however she is frustrated because she cannot use her right arm and she is having difficulty walking. She does state that she is getting better she cannot wait to she can walk out here to go home. Objective Vitals Vital Signs Date Time Temp Pulse Resp B/P Pulse Ox O2 Delivery O2 Flow Rate FiO2 03/02/17 20:00 98.7 87 22 149/86 96 I/O 03/02/17 03/02/17 03/02/17 03/03/17 03/03/17 03/03/17 06:59 14:59 22:59 06:59 14:59 22:59 Intake Total 480 ml 480 ml 580 ml 480 ml Output Total 600 ml 975 ml 500 ml 650 ml Balance -120 ml -495 ml 80 ml -170 ml Intake Oral 480 ml 480 ml 580 ml 480 ml Output Urine Total 600 ml 975 ml 500 ml 650 ml # Bowel Movements 0 0 0 0 Objective Remarks GENERAL: Well-developed, well-nourished, in no acute distress. alert and orientated HEENT: Head is normocephalic without any lesions or masses noted right facial droop. NECK: Trachea midline no deviation. CARDIAC: Regular rhythm, regular rate. S1/S2 are heard. No murmurs gallops or rubs. LUNGS: Clear to auscultation bilaterally. No wheeze, rhonchi or rales. No use of accessory muscles on inspiration or expiration. ABDOMEN: Soft, nontender. Nondistended. Bowel sounds heard in all 4 quadrants. No organomegaly or masses. Negative rebound, negative guarding EXTREMITIES: No edema, pulses are equal bilaterally. No cyanosis or clubbing NEUROLOGY: Mood and affect appear appropriate. Dense right hemiparesis which appears to be improving in the lower extremity. Patient is able to move her right hand second third and fourth digit. 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 Venegas has evaluated the patient. The bleed was stable on repeat head CT. No surgery needed. Speech therapy has signed off and indicates patient should be on a soft diet with thin liquids Occupational therapy indicates OT at rehabilitation. Patient will need to continue occupational therapy until discharge Physical therapy indicating PT at rehabilitation. We'll need to continue physical therapy, continue right AFO, Norflex for muscle spasm --trapeze assembly for bed to facilitate functioning --Consulted OT for wheelchair recommendations. Supplied recommendations to case management to provide wheelchair. 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 No signs of central DI Urinalysis was performed which did not indicate any acute infection Input/output indicating Euvolemia Hypokalemia, controlled Patient continued on potassium supplementation Continue monitor as needed Hypertension, stable Norvasc 10 mg daily Vasotec, clonidine as needed Alcohol and cocaine abuse dependence patient previously counseled. Status post thiamine Tobacco abuse Counseled on cessation Chronic hepatitis C, chronic Patient with chronic transaminitis continue to follow monthly. liver ultrasound showed fatty infiltration Anxiety. Controlled Seroquel low-dose initiated on 05/27. Bowel regimen Justyna-Colace as needed DVT prophylaxis Sequential compression devices. Lovenox 40 mg daily. Records reviewed, no change in clinical status or treatment plan Discharge Planning Discharge planning per case management. Consult case management for wheelchair. Patient will likely be able to use wheelchair and be discharged prior to her being able to be discharged without the wheelchair and home. PT recommending AFO, OT recommending 31 bedside commode, shower bench, ant- wheelchair with left arm drive. Both of which recommended patient go to rehabilitation. Jaycob Rebolledo March 03, 2017 10:27
[2017-03-03] MEDS: ENOXAPARIN SODIUM 40 MG/0.4 ML SYRINGE SQ SCH ×2 (14:18→15:26)
[2017-03-03 20:00] VITALS: BP 131/85; PULSE 90; RESP 21; TEMP 97.2; O2SAT 98
[2017-03-03] MEDS: QUEtiapine FUMARATE 25 MG TAB PO SCH (21:21)
[2017-03-04 08:00] VITALS: BP 130/80; PULSE 80; RESP 18; TEMP 97.8; O2SAT 96
[2017-03-04] MEDS: FAMOTIDINE 20 MG TAB PO SCH ×2 (09:59→21:13)
[2017-03-04] MEDS: GABAPENTIN 100 MG CAP PO SCH ×3 (09:59→17:05)
[2017-03-04] MEDS: POTASSIUM CHLORIDE 10 MEQ CONTROLLED RELEASE TAB PO SCH (09:59)
[2017-03-04] MEDS: DOCUSATE SODIUM 50 MG/SENNA 8.6 MG TAB PO SCH ×2 (09:59→21:14)
--- NOTE | 2017-03-04 10:02 | HHI.PR ---
Subjective Remarks Patient seen and examined today for follow-up on CVA and hemiparesis. Patient denies any new complaints. Patient is frustrated that she can go home. Objective Vitals Vital Signs Date Time Temp Pulse Resp B/P Pulse Ox O2 Delivery O2 Flow Rate FiO2 03/03/17 20:00 97.2 90 21 131/85 98 I/O 03/03/17 03/03/17 03/03/17 03/04/17 03/04/17 03/04/17 06:59 14:59 22:59 06:59 14:59 22:59 Intake Total 480 ml 360 ml 120 ml Output Total 650 ml 720 ml 550 ml Balance -170 ml -720 ml 360 ml -430 ml Intake Oral 480 ml 360 ml 120 ml Output Urine Total 650 ml 720 ml 550 ml # Voids 2 # Bowel Movements 0 Objective Remarks GENERAL: Well-developed, well-nourished, in no acute distress. alert and orientated HEENT: Head is normocephalic without any lesions or masses noted right facial droop. NECK: Trachea midline no deviation. CARDIAC: Regular rhythm, regular rate. S1/S2 are heard. No murmurs gallops or rubs. LUNGS: Clear to auscultation bilaterally. No wheeze, rhonchi or rales. No use of accessory muscles on inspiration or expiration. ABDOMEN: Soft, nontender. Nondistended. Bowel sounds heard in all 4 quadrants. No organomegaly or masses. Negative rebound, negative guarding EXTREMITIES: No edema, pulses are equal bilaterally. No cyanosis or clubbing NEUROLOGY: Mood and affect appear appropriate. Dense right hemiparesis which appears to be improving in the lower extremity. Patient is able to move her right hand second third and fourth digit. 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 Venegas has evaluated the patient. The bleed was stable on repeat head CT. No surgery needed. Speech therapy has signed off and indicates patient should be on a soft diet with thin liquids Occupational therapy indicates OT at rehabilitation. Patient will need to continue occupational therapy until discharge Physical therapy indicating PT at rehabilitation. We'll need to continue physical therapy, continue right AFO, Norflex for muscle spasm --trapeze assembly for bed to facilitate functioning --Consulted OT for wheelchair recommendations. Supplied recommendations to case management to provide wheelchair. 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 No signs of central DI Urinalysis was performed which did not indicate any acute infection Input/output indicating Euvolemia Hypokalemia, controlled Patient continued on potassium supplementation Continue monitor as needed Hypertension, stable Norvasc 10 mg daily Vasotec, clonidine as needed Alcohol and cocaine abuse dependence patient previously counseled. Status post thiamine Tobacco abuse Counseled on cessation Chronic hepatitis C, chronic Patient with chronic transaminitis continue to follow monthly. liver ultrasound showed fatty infiltration Anxiety. Controlled Seroquel low-dose initiated on 05/27. Bowel regimen Justyna-Colace as needed DVT prophylaxis Sequential compression devices. Lovenox 40 mg daily. Records reviewed, no change in clinical status or treatment plan Discharge Planning Discharge planning per case management. Consult case management for wheelchair. Patient will likely be able to use wheelchair and be discharged prior to her being able to be discharged without the wheelchair and home. PT recommending AFO, OT recommending 31 bedside commode, shower bench, ant- wheelchair with left arm drive. Both of which recommended patient go to rehabilitation. Jaycob Rebolledo March 04, 2017 10:02
[2017-03-04] MEDS: ENOXAPARIN SODIUM 40 MG/0.4 ML SYRINGE SQ SCH (17:05)
[2017-03-04 20:00] VITALS: BP 134/86; PULSE 87; RESP 19; TEMP 98.8; O2SAT 98
[2017-03-04] MEDS: ORPHENADRINE CITRATE 100 MG SUSTAINED RELEASE TAB PO PRN (21:13)
[2017-03-04] MEDS: QUEtiapine FUMARATE 25 MG TAB PO SCH (21:14)
[2017-03-05 08:00] VITALS: BP 121/83; PULSE 80; RESP 18; TEMP 96.3; O2SAT 95
[2017-03-05] MEDS: POTASSIUM CHLORIDE 10 MEQ CONTROLLED RELEASE TAB PO SCH (08:59)
[2017-03-05] MEDS: GABAPENTIN 100 MG CAP PO SCH ×3 (08:59→17:43)
[2017-03-05] MEDS: FAMOTIDINE 20 MG TAB PO SCH ×2 (08:59→20:51)
[2017-03-05] MEDS: DOCUSATE SODIUM 50 MG/SENNA 8.6 MG TAB PO SCH ×2 (09:00→20:51)
--- NOTE | 2017-03-05 12:41 | HHI.PR ---
Subjective Remarks Patient seen and examined today for follow-up on CVA and hemiparesis. Patient denies any new complaints. No change in clinical status. Patient is frustrated that she can't get up and move like she would like to see if she can go home. Objective Vitals Vital Signs Date Time Temp Pulse Resp B/P Pulse Ox O2 Delivery O2 Flow Rate FiO2 03/05/17 08:00 96.3 80 18 121/83 95 03/04/17 20:00 98.8 87 19 134/86 98 I/O 03/04/17 03/04/17 03/04/17 03/05/17 03/05/17 03/05/17 07:00 15:00 23:00 07:00 15:00 23:00 Intake Total 120 ml 1370 ml 360 ml Output Total 550 ml 550 ml 625 ml 100 ml Balance -430 ml 820 ml -265 ml -100 ml Intake Oral 120 ml 1370 ml 360 ml Output Urine Total 550 ml 550 ml 625 ml 100 ml # Voids 3 Objective Remarks GENERAL: Well-developed, well-nourished, in no acute distress. alert and orientated HEENT: Head is normocephalic without any lesions or masses noted right facial droop. NECK: Trachea midline no deviation. CARDIAC: Regular rhythm, regular rate. S1/S2 are heard. No murmurs gallops or rubs. LUNGS: Clear to auscultation bilaterally. No wheeze, rhonchi or rales. No use of accessory muscles on inspiration or expiration. ABDOMEN: Soft, nontender. Nondistended. Bowel sounds heard in all 4 quadrants. No organomegaly or masses. Negative rebound, negative guarding EXTREMITIES: No edema, pulses are equal bilaterally. No cyanosis or clubbing NEUROLOGY: Mood and affect appear appropriate. Dense right hemiparesis which appears to be improving in the lower extremity. Patient is able to move her right hand second third and fourth digit. 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 Venegas has evaluated the patient. The bleed was stable on repeat head CT. No surgery needed. Speech therapy has signed off and indicates patient should be on a soft diet with thin liquids Occupational therapy indicates OT at rehabilitation. Patient will need to continue occupational therapy until discharge Physical therapy indicating PT at rehabilitation. We'll need to continue physical therapy, continue right AFO, Norflex for muscle spasm --trapeze assembly for bed to facilitate functioning --Consulted OT for wheelchair recommendations. Supplied recommendations to case management to provide wheelchair. 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 No signs of central DI Urinalysis was performed which did not indicate any acute infection Input/output indicating Euvolemia Hypokalemia, controlled Patient continued on potassium supplementation Continue monitor as needed Hypertension, stable Norvasc 10 mg daily Vasotec, clonidine as needed Alcohol and cocaine abuse dependence patient previously counseled. Status post thiamine Tobacco abuse Counseled on cessation Chronic hepatitis C, chronic Patient with chronic transaminitis continue to follow monthly. liver ultrasound showed fatty infiltration Anxiety. Controlled Seroquel low-dose initiated on 05/27. Bowel regimen Justyna-Colace as needed DVT prophylaxis Sequential compression devices. Lovenox 40 mg daily. Records reviewed, no change in clinical status or treatment plan Discharge Planning Discharge planning per case management. Consult case management for wheelchair. Patient will likely be able to use wheelchair and be discharged prior to her being able to be discharged without the wheelchair and home. PT recommending AFO, OT recommending 31 bedside commode, shower bench, ant- wheelchair with left arm drive. Both of which recommended patient go to rehabilitation. Jaycob Rebolledo March 05, 2017 12:41
[2017-03-05] MEDS ORDERED: ENOXAPARIN SODIUM 40 MG/0.4 ML SYRINGE SQ PRN (16:00)
[2017-03-05 20:00] VITALS: BP 133/86; PULSE 89; RESP 20; TEMP 97.7; O2SAT 96
[2017-03-05] MEDS: QUEtiapine FUMARATE 25 MG TAB PO SCH (20:51)
[2017-03-06 08:28] VITALS: BP 117/83; PULSE 83; RESP 17; TEMP 97.2; O2SAT 94
[2017-03-06] MEDS: POTASSIUM CHLORIDE 10 MEQ CONTROLLED RELEASE TAB PO SCH (08:32)
[2017-03-06] MEDS: GABAPENTIN 100 MG CAP PO SCH ×3 (08:33→18:52)
[2017-03-06] MEDS: DOCUSATE SODIUM 50 MG/SENNA 8.6 MG TAB PO SCH ×2 (08:33→20:10)
[2017-03-06] MEDS: FAMOTIDINE 20 MG TAB PO SCH ×2 (08:33→20:10)
--- NOTE | 2017-03-06 09:06 | HHI.PR ---
Subjective Remarks Patient examined today for follow-up of CVA and hemiparesis. Patient denies any new complaints. No change in clinical status. Objective Vitals Vital Signs Date Time Temp Pulse Resp B/P Pulse Ox O2 Delivery O2 Flow Rate FiO2 03/06/17 08:28 97.2 83 17 117/83 94 03/05/17 20:00 97.7 89 20 133/86 96 I/O 03/05/17 03/05/17 03/05/17 03/06/17 03/06/17 03/06/17 07:00 15:00 23:00 07:00 15:00 23:00 Intake Total 360 ml 480 ml 460 ml 480 ml Output Total 625 ml 700 ml 500 ml 400 ml 150 ml Balance -265 ml -220 ml -40 ml 80 ml -150 ml Intake Oral 360 ml 480 ml 460 ml 480 ml Output Urine Total 625 ml 700 ml 500 ml 400 ml 150 ml # Bowel Movements 0 1 0 Objective Remarks GENERAL: Well-developed, well-nourished, in no acute distress. alert and orientated HEENT: Head is normocephalic without any lesions or masses noted right facial droop. NECK: Trachea midline no deviation. CARDIAC: Regular rhythm, regular rate. S1/S2 are heard. No murmurs gallops or rubs. LUNGS: Clear to auscultation bilaterally. No wheeze, rhonchi or rales. No use of accessory muscles on inspiration or expiration. ABDOMEN: Soft, nontender. Nondistended. Bowel sounds heard in all 4 quadrants. No organomegaly or masses. Negative rebound, negative guarding EXTREMITIES: No edema, pulses are equal bilaterally. No cyanosis or clubbing NEUROLOGY: Mood and affect appear appropriate. Dense right hemiparesis which appears to be improving in the lower extremity. Patient is able to move her right hand second third and fourth digit. 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 Venegas has evaluated the patient. The bleed was stable on repeat head CT. No surgery needed. Speech therapy has signed off and indicates patient should be on a soft diet with thin liquids Occupational therapy indicates OT at rehabilitation. Patient will need to continue occupational therapy until discharge Physical therapy indicating PT at rehabilitation. We'll need to continue physical therapy, continue right AFO, Norflex for muscle spasm --trapeze assembly for bed to facilitate functioning --Consulted OT for wheelchair recommendations. Supplied recommendations to case management to provide wheelchair. 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 No signs of central DI Urinalysis was performed which did not indicate any acute infection Input/output indicating Euvolemia Hypokalemia, controlled Patient continued on potassium supplementation Continue monitor as needed Hypertension, stable Norvasc 10 mg daily Vasotec, clonidine as needed Alcohol and cocaine abuse dependence patient previously counseled. Status post thiamine Tobacco abuse Counseled on cessation Chronic hepatitis C, chronic Patient with chronic transaminitis continue to follow monthly. liver ultrasound showed fatty infiltration Anxiety. Controlled Seroquel low-dose initiated on 05/27. Bowel regimen Justyna-Colace as needed DVT prophylaxis Sequential compression devices. Lovenox 40 mg daily. Records reviewed, no change in clinical status or treatment plan Discharge Planning Discharge planning per case management. Consult case management for wheelchair. Patient will likely be able to use wheelchair and be discharged prior to her being able to be discharged without the wheelchair and home. PT recommending AFO, OT recommending 31 bedside commode, shower bench, ant- wheelchair with left arm drive. Both of which recommended patient go to rehabilitation. Jaycob Rebolledo March 06, 2017 09:06
[2017-03-06] MEDS: ENOXAPARIN SODIUM 40 MG/0.4 ML SYRINGE SQ SCH (15:57)
[2017-03-06 20:00] VITALS: BP 148/93; PULSE 98; RESP 18; TEMP 98.6; O2SAT 95
[2017-03-06] MEDS: QUEtiapine FUMARATE 25 MG TAB PO SCH (20:10)
[2017-03-07 08:58] VITALS: BP 142/95; PULSE 90; RESP 18; TEMP 96.6; O2SAT 95
[2017-03-07] MEDS: GABAPENTIN 100 MG CAP PO SCH ×3 (09:45→16:48)
[2017-03-07] MEDS: DOCUSATE SODIUM 50 MG/SENNA 8.6 MG TAB PO SCH ×2 (09:45→21:20)
[2017-03-07] MEDS: FAMOTIDINE 20 MG TAB PO SCH ×2 (09:46→21:20)
[2017-03-07] MEDS: POTASSIUM CHLORIDE 10 MEQ CONTROLLED RELEASE TAB PO SCH (09:46)
[2017-03-07] MEDS: ENOXAPARIN SODIUM 40 MG/0.4 ML SYRINGE SQ SCH (11:52)
--- NOTE | 2017-03-07 13:12 | HHI.PR ---
Subjective Remarks Patient seen and examined today in follow-up for CVA and hemiparesis. Patient no change in clinical status. She denies any new complaints. Objective Vitals Vital Signs Date Time Temp Pulse Resp B/P Pulse Ox O2 Delivery O2 Flow Rate FiO2 03/07/17 08:58 96.6 90 18 142/95 95 03/06/17 20:00 98.6 98 18 148/93 95 I/O 03/06/17 03/06/17 03/06/17 03/07/17 03/07/17 03/07/17 06:59 14:59 22:59 06:59 14:59 22:59 Intake Total 480 ml 640 ml 480 ml 480 ml Output Total 400 ml 250 ml 300 ml 400 ml Balance 80 ml 390 ml 180 ml 80 ml Intake Oral 480 ml 640 ml 480 ml 480 ml Output Urine Total 400 ml 250 ml 300 ml 400 ml # Bowel Movements 0 0 0 0 Objective Remarks GENERAL: Well-developed, well-nourished, in no acute distress. alert and orientated HEENT: Head is normocephalic without any lesions or masses noted right facial droop. NECK: Trachea midline no deviation. CARDIAC: Regular rhythm, regular rate. S1/S2 are heard. No murmurs gallops or rubs. LUNGS: Clear to auscultation bilaterally. No wheeze, rhonchi or rales. No use of accessory muscles on inspiration or expiration. ABDOMEN: Soft, nontender. Nondistended. Bowel sounds heard in all 4 quadrants. No organomegaly or masses. Negative rebound, negative guarding EXTREMITIES: No edema, pulses are equal bilaterally. No cyanosis or clubbing NEUROLOGY: Mood and affect appear appropriate. Dense right hemiparesis which appears to be improving in the lower extremity. Patient is able to move her right hand second third and fourth digit. 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 Venegas has evaluated the patient. The bleed was stable on repeat head CT. No surgery needed. Speech therapy has signed off and indicates patient should be on a soft diet with thin liquids Occupational therapy indicates OT at rehabilitation. Patient will need to continue occupational therapy until discharge Physical therapy indicating PT at rehabilitation. We'll need to continue physical therapy, continue right AFO, Norflex for muscle spasm --trapeze assembly for bed to facilitate functioning --Consulted OT for wheelchair recommendations. Supplied recommendations to case management to provide wheelchair. 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 No signs of central DI Urinalysis was performed which did not indicate any acute infection Input/output indicating Euvolemia Hypokalemia, controlled Patient continued on potassium supplementation Continue monitor as needed Hypertension, stable Norvasc 10 mg daily Vasotec, clonidine as needed Alcohol and cocaine abuse dependence patient previously counseled. Status post thiamine Tobacco abuse Counseled on cessation Chronic hepatitis C, chronic Patient with chronic transaminitis continue to follow monthly. liver ultrasound showed fatty infiltration Anxiety. Controlled Seroquel low-dose initiated on 05/27. Bowel regimen Justyna-Colace as needed DVT prophylaxis Sequential compression devices. Lovenox 40 mg daily. Records reviewed, no change in clinical status or treatment plan Discharge Planning Discharge planning per case management. Consult case management for wheelchair. Patient will likely be able to use wheelchair and be discharged prior to her being able to be discharged without the wheelchair and home. PT recommending AFO, OT recommending 31 bedside commode, shower bench, ant- wheelchair with left arm drive. Both of which recommended patient go to rehabilitation. Jaycob Rebolledo March 07, 2017 13:12
[2017-03-07 20:00] VITALS: BP 142/82; PULSE 86; RESP 20; TEMP 96.7; O2SAT 97
[2017-03-07] MEDS: QUEtiapine FUMARATE 25 MG TAB PO SCH (21:20)
[2017-03-08 08:00] VITALS: BP 136/80; PULSE 80; RESP 16; TEMP 98; O2SAT 94
[2017-03-08] MEDS: GABAPENTIN 100 MG CAP PO SCH ×3 (09:13→17:50)
[2017-03-08] MEDS: POTASSIUM CHLORIDE 10 MEQ CONTROLLED RELEASE TAB PO SCH (09:13)
[2017-03-08] MEDS: DOCUSATE SODIUM 50 MG/SENNA 8.6 MG TAB PO SCH ×2 (09:13→20:38)
[2017-03-08] MEDS: FAMOTIDINE 20 MG TAB PO SCH ×2 (09:13→20:38)
--- NOTE | 2017-03-08 11:22 | HHI.PR ---
Subjective Remarks Follow-up for CVA, hemiparesis. No acute complaints. Objective Vitals Vital Signs Date Time Temp Pulse Resp B/P Pulse Ox O2 Delivery O2 Flow Rate FiO2 03/08/17 08:00 98.0 80 16 136/80 94 03/07/17 20:00 96.7 86 20 142/82 97 I/O 03/07/17 03/07/17 03/07/17 03/08/17 03/08/17 03/08/17 07:00 15:00 23:00 07:00 15:00 23:00 Intake Total 480 ml 360 ml 120 ml Output Total 400 ml 930 ml 575 ml 600 ml Balance 80 ml -570 ml -455 ml -600 ml Intake Oral 480 ml 360 ml 120 ml IV Total 0 ml Output Urine Total 400 ml 930 ml 575 ml 600 ml # Bowel Movements 0 Objective Remarks GENERAL: Thin patient in no apparent distress. CARDIOVASCULAR: Regular rate and rhythm. RESPIRATORY: RR normal. CTAB. GASTROINTESTINAL: Abdomen soft, nontender, non-distended. NEUROLOGICAL: Awake and alert. PSYCHIATRIC: Insight and judgment normal. 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 (2) Hemiparesis affecting right side as late effect of cerebrovascular accident (CVA) ICD Code: I69.351 Status: Chronic (3) Shortness of breath ICD Code: R06.02 Status: Resolved (4) Fever ICD Code: R50.9 Status: Resolved (5) Abdominal pain ICD Code: R10.9 Status: Resolved (6) Hypertensive emergency ICD Code: I10 Status: Resolved (7) Metabolic acidosis ICD Code: E87.2 Status: Resolved (8) UTI (urinary tract infection) ICD Code: N39.0 Status: Resolved (9) Vaginal discharge ICD Code: N89.8 Status: Resolved (10) Increased urinary frequency ICD Code: R35.0 Status: Resolved Assessment and Plan Left basal ganglia bleed with 4mm MLS with dense Right hemiparesis, stable secondary to cocaine and uncontrolled hypertension Neurosurgery, Dr. Venegas has evaluated the patient. The bleed has been stable on repeat head CT. No surgery needed. Speech therapy indicated soft diet with thin liquids Occupational therapy indicates OT at rehabilitation. Patient will need to continue occupational therapy until discharge Physical therapy indicating PT at rehabilitation. We'll need to continue physical therapy, continue right AFO. Norflex for muscle spasms Abdominal pain: Resolved Leukocytosis resolved CT scan did not indicate any abnormality SOB: Resolved. Chest x-ray without acute abnormality. 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 No signs of central DI Urinalysis was performed which did not indicate any signs of infection Continue Belladonna rectal suppository Although chronic patient admitted to increased frequency on 02/22. UA clean catch at that time without infection. Remains afebrile. Patient's urine output is more than she took in over the last 24 hours. Continue to monitor. Hypertension: Norvasc 10 mg daily Vasotec, clonidine as needed BP fluctuates; will monitor Hypokalemia: Resolved. Patient is on potassium replacement Monitor BMP as needed Alcohol and cocaine abuse dependence patient previously counseled. Status post thiamine Tobacco abuse Counseled on cessation Chronic hepatitis C, chronic Patient with chronic transaminitis continue to follow periodically. 11/05 AST and ALT improved from prior LFTs. Liver ultrasound showed fatty infiltration Anxiety: Controlled Seroquel low-dose initiated on 05/27. Bowel regimen: Justyna-Colace, magnesium hydroxide as needed. DVT prophylaxis Sequential compression devices. Lovenox 40 mg sq daily. Discharge Planning Occupational therapy recommends 3-1 bedside commode, ant-wheelchair with left arm drive for discharge. PT recommends right AFO. 03/08/17: Per CM, patient to be discharged to [facility] tomorrow. Elisabeth Church March 08, 2017 11:22
[2017-03-08] MEDS: ENOXAPARIN SODIUM 40 MG/0.4 ML SYRINGE SQ SCH (14:13)
[2017-03-08 20:00] VITALS: BP 134/83; PULSE 87; RESP 19; TEMP 97.7; O2SAT 97
[2017-03-08] MEDS: QUEtiapine FUMARATE 25 MG TAB PO SCH (20:38)
[2017-03-09] MEDS ORDERED: WHEEMIS3 (07:40)
[2017-03-09] MEDS ORDERED: FAMO20TA2 PO (07:45)
[2017-03-09] MEDS ORDERED: ORPH100T PO (07:45)
[2017-03-09] MEDS ORDERED: POTA-243 PO (07:45)
[2017-03-09] MEDS ORDERED: ENOX40P SQ (07:45)
[2017-03-09] MEDS ORDERED: SENN1TAB PO (07:45)
[2017-03-09 08:00] VITALS: BP 136/83; PULSE 85; RESP 18; TEMP 96.5; O2SAT 95
[2017-03-09] MEDS: POTASSIUM CHLORIDE 10 MEQ CONTROLLED RELEASE TAB PO SCH (09:03)
[2017-03-09] MEDS: DOCUSATE SODIUM 50 MG/SENNA 8.6 MG TAB PO SCH (09:03)
[2017-03-09] MEDS: GABAPENTIN 100 MG CAP PO SCH ×2 (09:03→13:10)
[2017-03-09] MEDS: FAMOTIDINE 20 MG TAB PO SCH (09:03)
--- NOTE | 2017-03-09 09:41 | HHI.PR ---
Subjective Remarks Follow-up for intracranial hemorrhage, right hemiparesis. Patient still admits to having increased urinary frequency more than her norm. She denies any fevers or abdominal pain. Objective Vitals Vital Signs Date Time Temp Pulse Resp B/P Pulse Ox O2 Delivery O2 Flow Rate FiO2 03/09/17 08:00 96.5 85 18 136/83 95 03/08/17 20:00 97.7 87 19 134/83 97 I/O 03/08/17 03/08/17 03/08/17 03/09/17 03/09/17 03/09/17 07:00 15:00 23:00 07:00 15:00 23:00 Intake Total 120 ml 1320 ml 360 ml 240 ml 100 ml Output Total 575 ml 1300 ml 1225 ml 625 ml Balance -455 ml 20 ml -865 ml -385 ml 100 ml Intake Oral 120 ml 1320 ml 360 ml 240 ml 100 ml Output Urine Total 575 ml 1300 ml 1225 ml 625 ml # Voids 2 Objective Remarks GENERAL: Thin patient in no apparent distress. CARDIOVASCULAR: Regular rate and rhythm. RESPIRATORY: RR normal. CTAB. GASTROINTESTINAL: Abdomen soft, nontender, non-distended. MUSCULOSKELETAL: 2+ right distal radial pulse. NEUROLOGICAL: Awake and alert. 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 Improved strength in right lower extremity, 4/5. PSYCHIATRIC: Insight and judgment normal. 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 (2) Hemiparesis affecting right side as late effect of cerebrovascular accident (CVA) ICD Code: I69.351 Status: Chronic (3) Shortness of breath ICD Code: R06.02 Status: Resolved (4) Fever ICD Code: R50.9 Status: Resolved (5) Abdominal pain ICD Code: R10.9 Status: Resolved (6) Hypertensive emergency ICD Code: I10 Status: Resolved (7) Metabolic acidosis ICD Code: E87.2 Status: Resolved (8) UTI (urinary tract infection) ICD Code: N39.0 Status: Resolved (9) Vaginal discharge ICD Code: N89.8 Status: Resolved (10) Increased urinary frequency ICD Code: R35.0 Status: Acute Assessment and Plan Left basal ganglia bleed with 4mm MLS with dense Right hemiparesis, stable secondary to cocaine and uncontrolled hypertension Neurosurgery, Dr. Venegas has evaluated the patient. The bleed has been stable on repeat head CT. No surgery needed. Speech therapy indicated soft diet with thin liquids Occupational therapy indicates OT at rehabilitation. Patient will need to continue occupational therapy until discharge Physical therapy indicating PT at rehabilitation. We'll need to continue physical therapy, continue right AFO. Norflex for muscle spasms Abdominal pain: Resolved Leukocytosis resolved CT scan did not indicate any abnormality SOB: Resolved. Chest x-ray without acute abnormality. 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 No signs of central DI Urinalysis was performed which did not indicate any signs of infection Belladonna rectal suppository was discontinued on 12/21. Although chronic patient admitted to increased frequency on 02/22. UA clean catch at that time without infection. Remains afebrile. 03/09: Still c/o of increased urinary frequency. Patient has -1230 fluid balance over the past [address] Deluna, attending. Advises obtaining BMP. BMP reviewed and normal. Intake likely not being tracked appropriately. Prefer not to restart belladonna as patient was already on this for extended period of time and has been off of this for a couple of months prior to symptom restarting. Hypertension: Norvasc 10 mg daily Vasotec, clonidine as needed BP fluctuates; will monitor Hypokalemia: Resolved. Patient is on potassium replacement Monitor BMP as needed Alcohol and cocaine abuse dependence patient previously counseled. Status post thiamine Tobacco abuse Counseled on cessation Chronic hepatitis C, chronic Patient with chronic transaminitis continue to follow periodically. 11/05 AST and ALT improved from prior LFTs. Liver ultrasound showed fatty infiltration Anxiety: Controlled Seroquel low-dose initiated on 05/27. Bowel regimen: Justyna-Colace, magnesium hydroxide as needed. DVT prophylaxis Sequential compression devices. Lovenox 40 mg sq daily. Discharge Planning Occupational therapy recommends 3-1 bedside commode, ant-wheelchair with left arm drive for discharge. PT recommends right AFO. 03/09/17: Patient to be discharged to [facility] today. 3008 filled out and on chart. Elisabeth Church March 09, 2017 09:40
[2017-03-09 09:56] LABS: POTASSIUM 3.6 MEQ/L (3.5-5.1)
[2017-03-09 10:00] LABS: BICARBONATE 26.8 MEQ/L (21.0-32.0)
[2017-03-09] MEDS: ENOXAPARIN SODIUM 40 MG/0.4 ML SYRINGE SQ SCH (13:10)
--- NOTE | 2017-03-09 14:01 | HHI.DCPOC ---
Discharge Care Plan Diagnosis: (1) Basal ganglia hemorrhage (2) Hemiparesis affecting right side as late effect of cerebrovascular accident (CVA) (3) Hypertensive emergency (4) Respiratory alkalosis (5) Metabolic acidosis (6) Increased urinary frequency (7) Abdominal pain (8) UTI (urinary tract infection) (9) Vaginal discharge (10) Shortness of breath (11) Fever Goals to Promote Your Health * To prevent worsening of your condition and complications * To maintain your health at the optimal level Directions to Meet Your Goals Take your medications as prescribed Follow your dietary instruction Follow activity as directed Keep your appointments as scheduled Take your immunizations and boosters as scheduled If your symptoms worsen call your PCP, if no PCP go to Urgent Care Center or Emergency Room Smoking is Dangerous to Your Health. Avoid second hand smoke Call the 24-hour hour crisis hotline for domestic abuse at Elisabeth Church March 09, 2017 14:01
--- NOTE | 2017-03-09 14:04 | HHI.DS ---
Discharge Summary Admission Date May 10, 2016 at 16:14 Discharge Date: March 09, 2017 Admitting Diagnosis Intracranial bleed (1) Basal ganglia hemorrhage ICD Code: I61.0 Diagnosis: Principal (2) Hemiparesis affecting right side as late effect of cerebrovascular accident (CVA) ICD Code: I69.351 Diagnosis: Principal (3) Hypertensive emergency ICD Code: I10 Diagnosis: Principal (4) Respiratory alkalosis ICD Code: E87.3 Diagnosis: Principal (5) Metabolic acidosis ICD Code: E87.2 Diagnosis: Principal (6) Electrolyte abnormality ICD Code: E87.8 Diagnosis: Principal (7) Shortness of breath ICD Code: R06.02 Diagnosis: Principal (8) Fever ICD Code: R50.9 Diagnosis: Principal (9) Abdominal pain ICD Code: R10.9 Diagnosis: Principal (10) UTI (urinary tract infection) ICD Code: N39.0 Diagnosis: Principal (11) Vaginal discharge ICD Code: N89.8 Diagnosis: Principal (12) Increased urinary frequency ICD Code: R35.0 Diagnosis: Principal Procedures None Brief History - From Admission Patient is a 55-year-old female with a history of alcohol abuse as well as hepatitis the presents the emergency department with altered mental status. Patient's neighbor went to her house today and found her confused with feces all over her house. The patient was unaware of why she was in the emergency department. She did not have any complaints. She was only awake and alert 2 in the emergency department. She admitted to daily alcohol use and had no evidence of any trauma. In emergency department she was found to be hypertensive and started on Cardene. CT scan of the brain showed evidence of a basal ganglia hemorrhage. Patient was admitted to the intensive care unit for further care and monitoring. CBC/BMP: 03/09/17 0910 Significant Findings Laboratory Tests Test 03/09/17 09:10 Random Glucose 114 MG/DL (74-106) Imaging Last Impressions Hand X-Ray 02/16/17 0000 Signed Impressions: Service Date/Time: Thursday, February 16, 2017 12:55 - CONCLUSION: 1. Mild osteoarthritic change. 2. Osteopenia with no acute fracture or malalignment. Camden Logan MD Chest X-Ray 08/30/16 0000 Signed Impressions: Service Date/Time: Tuesday, August 30, 2016 09:59 - CONCLUSION: No acute cardiopulmonary disease. Jeremy Moseley MD Abdomen/Pelvis CT 08/29/16 0000 Signed Impressions: Service Date/Time: Monday, August 29, 2016 12:24 - CONCLUSION: 1. There are tiny obstructing stones in the left kidney and old healed fractures of the pelvic bones. 2. Mild right lung base atelectasis and/or infiltrate is seen a small hiatal hernia. Braden Murrieta MD Liver Ultrasound 05/11/16 0000 Signed Impressions: Service Date/Time: Wednesday, May 11, 2016 08:30 - CONCLUSION: 1. Liver is slightly echogenic which can be seen with fatty infiltration/hepatocellular dysfunction. 2. No evidence for cholelithiasis. Geremias Smith MD Head Magnetic Resonance Angiography 05/11/16 0000 Signed Impressions: Service Date/Time: Wednesday, May 11, 2016 16:21 - CONCLUSION: No acute [place] vascular abnormalities. Jeremy Toledo MD Brain MRI 05/11/16 0000 Signed Impressions: Service Date/Time: Wednesday, May 11, 2016 16:21 - CONCLUSION: 1. Focal acute intraparenchymal hemorrhage in the left thalamus measuring 2.8 cm most likely representing a focal hemorrhagic infarction. 2. Bilateral cortical atrophy and mild chronic white matter changes. 3. No enhancing mass occupying lesions are demonstrated. Estrada Vigil MD Abdomen X-Ray 05/11/16 0000 Signed Impressions: Service Date/Time: Wednesday, May 11, 2016 16:03 - CONCLUSION: No evidence of obstruction. No MRI incompatible foreign body is identified. Estrada Vigil MD Head CT 05/10/16 1431 Signed Impressions: Service Date/Time: Tuesday, May 10, 2016 15:07 - CONCLUSION: 1. 2.3 cm left thalamic hypertensive type hemorrhage with approximately 4 mm of [id number] subfalcine shift. 2. Mild periventricular small vessel ischemic demyelination. 3. Results were called to Dr. Barboza at the time of this dictation. Nicholas Dove MD PE at Discharge GENERAL: Thin patient in no apparent distress. CARDIOVASCULAR: Regular rate and rhythm. RESPIRATORY: RR normal. CTAB. GASTROINTESTINAL: Abdomen soft, nontender, non-distended. MUSCULOSKELETAL: 2+ right distal radial pulse. NEUROLOGICAL: Awake and alert. 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 Improved strength in right lower extremity, 4/5. PSYCHIATRIC: Insight and judgment normal. Hospital Course Patient initially presented to the ED on 05/10/16 with altered mental status having been found in her house by a neighbor surrounded by feces. Patient was found to have an intracranial, hypertensive type hemorrhage. She had respiratory alkalosis in the ED but was maintaining airway and did not require intubation. Patient was found to be emergently hypertensive and was started on Nicardipine and admitted to ICU. Patient's alcohol level was mildly elevated and UDS was positive for cocaine. She was found to have metabolic acidosis and multiple electrolyte abnormalities which were addressed. She continues on potassium supplementation. Patient has elevated liver enzymes and tested positive for hepatitis C; liver ultrasound showing fatty liver. LFTs remain chronically elevated, but are stable. During her hospitalization she was treated for UTI. She was also evaluated for shortness of breath and abdominal pain both of which resolved. Pelvic exam was additionally performed after c/o vaginal discharge, but no infection was evident. Patient's blood pressure improved and currently she takes only Norvasc daily. Patient has had issues with increased urinary frequency chronically during her hospitalization. Workup for DI was negative. Multiple repeat UAs performed without infection. Patient was on a belladonna rectal suppository with some relief for over 5 months but this medication was stopped in November. She again complained of increased urinary frequency more recently and intake and output monitored, likely not tracked appropriately as BMP is normal with supposed large output. ST evaluated patient and OT and PT have continued to work with patient. Patient still has very limited mobility in the right arm, but her right leg strength is greatly improved. She continues to use AFO on the right. Patient accepted to SNF and is ready for discharge. Pt Condition on Discharge: Stable Discharge Disposition: Discharge to SNF Discharge Time: > 30 minutes (3008 form, [facility], review of records, d/c summary) Discharge Instructions DIET: Follow Instructions for: Heart Healthy Diet Activities you can perform: See Additionl Instruction Other Activity Instructions: activity per OT and PT Follow up Referrals: PCP Follow-up - 1 Week SNF/LONG TERM/HH - Today New Medications: Misc. Devices (Bath Bench with Back) 1 Mis Mis UNITS #1 Misc. Devices (3-in-1 Bedside Toilet) 1 Mis Mis UNITS #1 Wheelchair (Wheelchair) 1 Mis Mis 1 EA .ROUTE DIRECTED Hemiwheelchair with L arm drive #1 Ref 0 EA Amlodipine Besylate (Norvasc) 10 Mg Tab 10 MG PO DAILY Days 30 TAB Enoxaparin Inj (Lovenox Inj) 40 Mg/0.4 Ml Syr 40 MG SQ Q24H Prevent Blood Clot Days 30 INJECTION Famotidine (Famotidine) 20 Mg Tab 20 MG PO BID GI protection #60 TAB Gabapentin (Gabapentin) 100 Mg Cap 100 MG PO TID Days 30 CAP Orphenadrine ER 12 HR (Orphenadrine ER 12 HR) 100 Mg Tab 100 MG PO Q12H PRN muscle spasm/muscle cramps #30 TAB Potassium Chloride ER (Klor-Con 10) 10 Meq Tab 10 MEQ PO DAILY Nutritional Supplement #30 TAB Quetiapine Fumarate (Quetiapine Fumarate) 25 Mg Tab 12.5 MG PO HS Days 30 TAB Sennosides-Docusate Sodium (Senna Plus 8.6-50 mg) 1 Tab Tab 1 TAB PO BID Constipation Days 30 TAB Discontinued Medications: Clonazepam (Clonazepam) 1 Mg Tab 1 MG PO BID Hydrocodone/Acetaminophen (Lortab 5/325 tab) 1 Tab Tab 1 TAB PO Q6H PRN PAIN GREATER THAN 7 #20 Potassium Chloride (K-Dur) 10 Meq Tabcr 0 PO DAILY UNKNOWN DOSE ([Bp Medication]) UNKNOWN ANTIHYPERTENSIVE Elisabeth Church March 09, 2017 14:03
== END 2017-03-09 16:09 | DRG 64 ==
LOC: NEPE 14:16 → NEDA 16:14 → N03B 18:35 → N05A 05-13 18:03 → PH3B 06-17 18:21 → PH5A 08-04 14:04
PROVIDERS: ADMIT Hospitalist; ATTEND Hospitalist
PROC: 0T9B70Z Drainage of Bladder with Drainage Device, Via Natural or Artificial Opening (ICD-10-PCS; principal; 2016-05-10)
PROC: 30233R1 Transfusion of Nonautologous Platelets into Peripheral Vein, Percutaneous Approach (ICD-10-PCS; 2016-05-10)
DX: I61.0 Nontraumatic intracerebral hemorrhage in hemisphere, subcortical (principal); T40.5X1A Poisoning by cocaine, accidental (unintentional), initial encounter; G93.40 Encephalopathy, unspecified; E87.2 Acidosis; D69.6 Thrombocytopenia, unspecified; E87.3 Alkalosis; E87.1 Hypo-osmolality and hyponatremia; F14.20 Cocaine dependence, uncomplicated; G81.91 Hemiplegia, unspecified affecting right dominant side; N39.0 Urinary tract infection, site not specified; I16.1 Hypertensive emergency; J98.11 Atelectasis; K76.0 Fatty (change of) liver, not elsewhere classified; Z72.0 Tobacco use; B18.2 Chronic viral hepatitis C; F10.20 Alcohol dependence, uncomplicated; F12.10 Cannabis abuse, uncomplicated; I10 Essential (primary) hypertension; E83.39 Other disorders of phosphorus metabolism; E87.6 Hypokalemia; R15.9 Full incontinence of feces; B96.20 Unspecified Escherichia coli [E. coli] as the cause of diseases classified elsewhere; R19.7 Diarrhea, unspecified; B37.2 Candidiasis of skin and nail; F41.9 Anxiety disorder, unspecified; R29.810 Facial weakness; M79.601 Pain in right arm; Y92.009 Unspecified place in unspecified non-institutional (private) residence as the place of occurrence of the external cause; N20.0 Calculus of kidney; K59.00 Constipation, unspecified; N89.8 Other specified noninflammatory disorders of vagina; Z91.19 Patient's noncompliance with other medical treatment and regimen; M62.838 Other muscle spasm; R35.0 Frequency of micturition
CPT/HCPCS: 36430; 36600; 70450; 70544; 70553; 71010; 73120; 74177; 76705; 80048; 80053; 80074; 80076; 80301; 80320; 80329; 81001; 82140; 82550; 82552; 82607; 82805; 83605; 83690; 83735; 84100; 84132; 84443; 84484; 84703; 85025; 85610; 85730; 86900; 86901; 87040; 87077; 87086; 87186; 87205; 87210; 87491; 87493; 87591; 93005; 93306; 94150; 94640; 94664; 94762; 95819; A9579; C9113; G0479; J0692; J1650; J1956; J2060; J2250; J2270; J3010; J3411; J3475; J3480; J7030; J7040; J7050; L1960; P9035; Q9963; Q9967